=== PATIENT | female | born 1950 | race Caucasian/White ===

== ENCOUNTER → 2017-07-24 | Outpatient (CLI) | payer MEDICARE ==
--- NOTE | 2017-07-24 15:11 | CT ---
EXAMINATION TYPE: CT lumbar spine wo con DATE OF EXAM: 07/24/2017 COMPARISON: CT abdomen and pelvis November 22, 2009 HISTORY: Low back pain x [address] DLP: 952.00 mGycm Automated exposure control for dose reduction was used. FINDINGS: There are 5 lumbar type vertebra identified. Lumbar spine shows satisfactory alignment without eviden ce of acute fracture or dislocation. Osseous structures are demineralized. Vertebral body and disc sp carroll heights are fairly well-maintained. No large posterior disc herniations are seen on sagittal imag es. No significant spurring is noted. There is spinal stimulator device entering spinal canal posteri or approach L1-L2 level extending outside the [id number] into the thoracic spine. Review of axial images shows a T12-L1, L1-L2, and L2-L3 levels all to appear within normal limits. Axial images at L3-L4 level show mild broad disc bulge and mild facet degenerative changes bilaterall y. There is some effacement the anterior and posterior lateral thecal sac on axial image 44. Bilatera l neural foramina are felt patent. Axial images at L4-L5 level show moderate to advanced facet degenerative changes bilaterally. There i s moderate broad based posterior disc protrusion. There is effacement of anterior posterior lateral t hecal sac and axial image 55. There is mild to moderate bilateral anterior inferior neural foraminal narrowing at this level identified. Axial images at L5-S1 level show moderate to advanced right and mild left-sided facet degenerative ch anges bilaterally. Spinal canal is preserved. Bilateral neural foramina are felt patent. There are calcified phleboliths bilaterally. There is partial visualization of large otherwise simple appearing cyst anteriorly upper pole level right kidney on axial image 19 which was present on [address]. Cholecystectomy clips are also redemonstrated. IMPRESSION: DEMINERALIZATION WITH SOME DEGENERATIVE CHANGES MID TO LOWER LUMBAR LEVEL DETAILED ABOVE.
== END | disposition home or self-care (01) ==
LOC: RADCTMAIN 14:33
PROVIDERS: ATTEND Psychiatry & Neurology Neurology
DX: M47.897 Other spondylosis, lumbosacral region (principal); M81.0 Age-related osteoporosis without current pathological fracture
CPT/HCPCS: 72131

== ENCOUNTER → 2017-09-04 | Outpatient (CLI) | payer MEDICARE ==
[2017-09-04 15:52] LABS: Blood Urea Nitrogen 14 mg/dL (7-17)
--- NOTE | 2017-09-04 20:21 | CT ---
EXAMINATION TYPE: CT brain wo/w con DATE OF EXAM: 09/04/2017 COMPARISON: 05/14/2016 HISTORY: Personal history of tia. CT DLP: 2063.9 mGycm Automated exposure control for dose reduction was used. CONTRAST: CT scan of the head is performed without and with IV Contrast, patient injected with 65 mL of Omnipaq ue 350. FINDINGS: There is mild cerebral cortical atrophy. There is no mass effect nor midline shift. There is no sign of intracranial hemorrhage. The contrast images show no pathologic enhancement. There is a 1 cm area of hypodensity in the insula left temporal lobe. IMPRESSION: Small lacunar infarct in the insula left temporal lobe. There is overall no adverse change compared t o old exam. No evidence of cortical infarct.
--- NOTE | 2017-09-06 23:23 | CT ---
EXAMINATION TYPE: CT angio head neck DATE OF EXAM: 09/04/2017 COMPARISON: Brain 09/04/2017 HISTORY: 67-year-old female Personal history of TIA. TECHNIQUE: Contiguous axial scanning of the head and neck performed with IV Contrast; injected with 6 5 mL of [id number] images through the kidneys were obtained. Coronal/sagittal MIP reconstructions perf ormed. 3-D reconstructions generated on a dedicated independent workstation. CT DLP: 240.4 [id number] exposure control for dose reduction was used. FINDINGS: Head: Focal atherosclerotic calcification left vertebral artery at the V3 and V4 junction causing moderate focal stenosis. Otherwise, the vertebral and basilar arteries are widely patent. Mild atherosclerotic calcifications within the carotid siphons with mild narrowing. Mild atherosclero tic irregularity of the M2 and more peripheral MCA branches. Otherwise, the internal carotid arteries are patent and the anterior and posterior circulations appear satisfactory. Small 7 mm pleural-based calcification left temporal region probably a tiny meningioma. NECK: Mild atherosclerotic arch calcifications with conventional arch vessel branching anatomy. The vertebral artery origins are patent and the vertebral arteries are patent throughout the course. The right common carotid artery is patent. Moderate atherosclerotic calcifications within the right carotid bulb causing approximately 50% stenosis of the proximal right internal carotid artery by NASC ET criteria. The left common carotid artery is patent. Moderate atherosclerotic calcifications of the left carotid bifurcation with approximately 15% stenosis of the proximal left internal carotid artery by NASCET c riteria. The proximal internal carotid arteries are tortuous on both sides. IMPR ION: 1. Head: Mild atherosclerotic narrowing in the bilateral carotid siphons and mild atherosclerotic irr egularity within the M2 and more distal MCA branches. 2. Head: Atherosclerotic calcification causing a moderate focal narrowing of the left vertebral arter y at the V3 and V4 junction. 3. Neck: Moderate atherosclerotic calcification at both carotid bifurcations. Changes result in borde rline moderate (50%) proximal right ICA stenosis and mild (15%) proximal left ICA stenosis.
== END | disposition home or self-care (01) ==
LOC: RADCTMAIN 15:18
PROVIDERS: ATTEND Psychiatry & Neurology Pain Medicine
DX: I63.9 Cerebral infarction, unspecified (principal); I67.2 Cerebral atherosclerosis; I63.233 Cerebral infarction due to unspecified occlusion or stenosis of bilateral carotid arteries; Z88.5 Allergy status to narcotic agent; Z91.041 Radiographic dye allergy status
CPT/HCPCS: 82565; 84520; 70496; 70470; 70498; 36415; Q9967

== ENCOUNTER 2018-03-26 16:04 | Inpatient (IN) | payer MEDICARE ==
[2018-03-26 18:07] LABS: Basophils % (A) 0 %; Eosinophils # (A) 0.2 k/uL (0-0.7); Eosinophils % (A) 1 %; HCT 37.5 % (34.0-46.0); HGB 12.6 gm/dL (11.4-16.0); Lymphocytes # (A) 2.1 k/uL (1.0-4.8); Lymphocytes % (A) 10 %; MCH 27.3 pg (25.0-35.0); MCHC 33.5 g/dL (31.0-37.0); MCV 81.4 fL (80.0-100.0); Mean Platelet Volume 6.3; Monocytes # (A) 0.5 k/uL (0-1.0); Monocytes % (A) 3 %; Neutrophils # (A) 17.7 k/uL (1.3-7.7); Neutrophils % (A) 86 %; Platelet Count 637 k/uL (150-450); RBC 4.61 m/uL (3.80-5.40); RDW 12.5 % (11.5-15.5); WBC 20.6 k/uL (3.8-10.6)
[2018-03-26 18:14] LABS: INR 1.1 (<1.2)
[2018-03-26 18:27] LABS: ALT 30 U/L (9-52); AST 24 U/L (14-36); Albumin 4.4 g/dL (3.5-5.0); Alkaline Phosphatase 83 U/L (38-126); Anion Gap 16 mmol/L; Blood Urea Nitrogen 20 mg/dL (7-17); Calcium 10.3 mg/dL (8.4-10.2); Carbon Dioxide 27 mmol/L (22-30); Chloride 86 mmol/L (98-107); Glucose 136 mg/dL (74-99); Potassium 3.3 mmol/L (3.5-5.1); Sodium 129 mmol/L (137-145); Total Bilirubin 0.7 mg/dL (0.2-1.3); Total Protein 7.7 g/dL (6.3-8.2)
[2018-03-26 18:31] LABS: Creatine Kinase 135 U/L (30-135)
[2018-03-26 18:43] LABS: Creatine Kinase MB 3.4 ng/mL (0.0-2.4); Troponin I <0.012 ng/mL (0.000-0.034)
[2018-03-26] MEDS ORDERED: POTASSIUM CHLORIDE ER 20 MEQ TAB.ER PO STA ×2 (18:55→23:20)
--- NOTE | 2018-03-26 19:10 | ED ---
General Adult HPI <Beto Ramirez - Last Filed: 03/26/18 20:14> - General Source: patient, RN notes reviewed Mode of arrival: wheelchair Limitations: no limitations <Kerline Carvajal - Last Filed: 03/27/18 03:21> - General Chief complaint: Recheck/Abnormal Lab/Rx Stated complaint: Sent by Karis Time Seen by Provider: 03/26/18 18:16 - History of Present Illness Initial comments: This is a 68-year-old female who presents to the emergency department with chief complaint of high white blood cell count. Patient is accompanied by her daughter who contributes to history. Daughter states that patient had a pain pump installed into her abdomen in the beginning of February. She states that subsequently patient developed a high white blood cell count and was admitted to [facility] on March 14 through the . Daughter states that a full workup was performed and no source of infection was found. She states the doctors believed it was patient's bodies reaction to the foreign pain pump. Daughter states that over the past week patient has not been eating or drinking. She has not been caring for herself. She states that she was contacted by Dr. Cabello and a Dr. Dyson today and was told to have patient admitted through the emergency department as her white blood cell count spiked back up. Patient is a very poor historian. She does admit to recent fevers and shortness of breath. She denies chest pain, abdominal pain. She also states she has been nauseous and vomiting. (Kerline Carvajal) - Related Data Home Medications Medication Instructions Recorded Confirmed Clopidogrel [Plavix] 75 mg PO DAILY 01/04/14 03/26/18 DULoxetine HCL [Cymbalta] 60 mg PO BID 01/04/14 03/26/18 Fluticasone/Salmeterol [Advair 1 puff INHALATION RT-BID 01/04/14 03/26/18 500-50 Diskus] Levothyroxine Sodium [Synthroid] 88 mcg PO QAM 01/04/14 03/26/18 Metoprolol Tartrate [Lopressor] 50 mg PO BID 01/04/14 03/26/18 Montelukast [Singulair] 10 mg PO HS 01/04/14 03/26/18 Aspirin 81 mg PO HS 02/07/14 03/26/18 valACYclovir HCL [Valtrex] 1,000 mg PO DAILY 02/07/14 03/26/18 Ondansetron HCl [Zofran] 8 mg PO Q12HR PRN 02/21/15 03/26/18 Vitamin B Complex 1 cap PO DAILY 02/21/15 03/26/18 cycloSPORINE [Restasis] 1 drops BOTH EYES BID 02/21/15 03/26/18 Biotin 5 mg PO DAILY 04/26/15 03/26/18 Ferrous Sulfate [Feosol] 325 mg PO DAILY 04/26/15 03/26/18 Ascorbic Acid [Vitamin C] 1,000 mg PO DAILY 05/13/16 03/26/18 Bisacodyl 5 mg PO DAILY PRN 03/26/18 03/26/18 Carbidopa-Levodopa 25-100 mg 1 tab PO HS 03/26/18 03/26/18 [Sinemet 25-100] Cholecalciferol [Vitamin D3] 5,000 unit PO DAILY 03/26/18 03/26/18 EPINEPHrine [Auvi-Q] 0.3 mg IM DIRECTED PRN 03/26/18 03/26/18 Levalbuterol Hfa Inhaler [Xopenex 1 - 2 puff INHALATION Q6HR PRN 03/26/18 Hfa Inhaler] Losartan Potassium 100 mg PO DAILY 03/26/18 03/26/18 amLODIPine [Norvasc] 10 mg PO BID 03/26/18 03/26/18 Allergies Allergy/AdvReac Type Severity Reaction Status Date / Time aripiprazole [From Abilify] Allergy Anaphylaxis Verified 03/26/18 18:56 baclofen Allergy Anaphylaxis Verified 03/26/18 18:56 butalbital [From Fioricet] Allergy Rash/Hives Verified 03/26/18 18:56 cefadroxil hydrate Allergy Rash/Hives Verified 03/26/18 18:56 [From Duricef] cefazolin sodium Allergy Anaphylaxis Verified 03/26/18 18:56 [From Kefzol] cephalexin monohydrate Allergy Anaphylaxis Verified 03/26/18 18:56 [From Keflex] ciprofloxacin [From Cipro] Allergy Swelling Verified 03/26/18 18:56 OF THROAT ,RASH AND HIVES ciprofloxacin HCl Allergy Rash/Hives, Verified 03/26/18 18:56 [From Cipro] SWELLING OF THROAT clindamycin HCl Allergy Unknown Verified 03/26/18 18:56 [From Cleocin] clindamycin palmitate HCl Allergy Unknown Verified 03/26/18 18:56 [From Cleocin] clindamycin phosphate Allergy Unknown Verified 03/26/18 18:56 [From Cleocin] dexamethasone [From Decadron] Allergy Anaphylaxis Verified 03/26/18 18:56 dexamethasone sod phosphate Allergy Anaphylaxis Verified 03/26/18 18:56 [From Decadron] ,RASH divalproex sodium Allergy Rash/Hives Verified 03/26/18 18:56 [From Depakote] hydroxyzine HCl [From Atarax] Allergy Unknown Verified 03/26/18 18:56 ibuprofen [From Motrin] Allergy RASH Verified 03/26/18 18:56 ,ITCHING SWELLING OF THROAT influenza virus vaccine, Allergy Anaphylaxis Verified 03/26/18 18:56 specific [Influenza Virus Vacc,Specific] Iodinated Contrast- Oral and Allergy Anaphylaxis Verified 03/26/18 18:56 IV Dye ketorolac tromethamine Allergy Chest Pain Verified 03/26/18 18:56 [From Toradol] lidocaine HCl Allergy Anaphylaxis Verified 03/26/18 18:56 [From Xylocaine] lisinopril Allergy Swelling Verified 03/26/18 18:56 meperidine HCl [From Demerol] Allergy Rash/Hives Verified 03/26/18 18:56 Milk Containing Products Allergy ABDOMINAL Verified 03/26/18 18:56 PAIN NAUSEA AND VOMITING morphine Allergy Vomiting Verified 03/26/18 18:56 Mushroom Allergy Anaphylaxis Verified 03/26/18 18:56 nortriptyline HCl Allergy Unknown Verified 03/26/18 18:56 [From Pamelor] omalizumab [From Xolair] Allergy Anaphylaxis Verified 03/26/18 18:56 Penicillins Allergy Rash/Hives Verified 03/26/18 18:56 pregabalin [From Lyrica] Allergy Rash/Hives Verified 03/26/18 18:56 procaine HCl [From Novocain] Allergy Unknown Verified 03/26/18 18:56 shellfish derived Allergy Anaphylaxis Verified 03/26/18 18:56 sulfamethoxazole Allergy Unknown Verified 03/26/18 18:56 [From Septra] tetracycline [Tetracycline] Allergy Rash/Hives Verified 03/26/18 18:56 theophylline anhydrous Allergy Unknown Verified 03/26/18 18:56 [From Joel-Dur] triamcinolone Allergy Anaphylaxis Verified 03/26/18 18:56 trimethoprim [From Septra] Allergy RASH, Verified 03/26/18 18:56 ITCHING vancomycin Allergy ITCHING Verified 03/26/18 18:56 ,HIVES wheat Allergy Rash/Hives Verified 03/26/18 18:56 yellow dye Allergy Anaphylaxis Verified 03/26/18 18:56 erythromycin base AdvReac Rash/Hives Verified 03/26/18 18:56 fentanyl [From Duragesic] AdvReac Unknown Verified 03/26/18 18:56 NSAIDS (Non-Steroidal AdvReac Unknown Verified 03/26/18 18:56 Anti-Inflamma verapamil AdvReac Rash/Hives Verified 03/26/18 18:56 PAPER TAPE Allergy Rash/BLISTE Uncoded 03/26/18 16:48 RS PERSERATIVE IN ALBUTEROL Allergy Dyspnea Uncoded 03/26/18 16:48 INHALER PU steroids Allergy Rash/Hives Uncoded 03/26/18 16:48 WHITE SUTURE Allergy Swelling Uncoded 03/26/18 16:48 Review of Systems ROS Other: All systems not noted in ROS Statement are negative. <Beto Ramirez - Last Filed: 03/26/18 20:14> ROS Other: All systems not noted in ROS Statement are negative. <Kerline Carvajal - Last Filed: 03/27/18 03:21> ROS Statement: Those systems with pertinent positive or pertinent negative responses have been documented in the HPI. Past Medical History Past Medical History: Asthma, Cancer, Chest Pain / Angina, CVA/TIA, Fibromyalgia , GERD/Reflux, Hyperlipidemia, Hypertension, Osteoarthritis (OA), Renal Disease , Sleep Apnea/CPAP/BIPAP, Thyroid Disorder Additional Past Medical History / Comment(s): stage 3 renal failure 30%, stroke X4 - LT SIDE WEAKNESS. cancer Lt leg (replaced with titanium), fibroids, endometriosis, cyst big toe, kidney stones. HAS DIABETES INSIPIDUS,anemia, phlebitis, cardiomyopathy dx December 2015 History of Any Multi-Drug Resistant Organisms: None Reported Past Surgical History: Appendectomy, Back Surgery, Bariatric Surgery, Cholecystectomy, Heart Catheterization, Hysterectomy, Joint Replacement, Orthopedic Surgery, Tubal Ligation Additional Past Surgical History / Comment(s): lithotripsy, bilateral cataract surgery, surgeries in legs for breaking of scar tissue, hand surgery, lapband removal 2013 (implanted 2007), Gastric sleeve ,, pain stimulator, PAIN CLINIC PROCEDURE Past Anesthesia/Blood Transfusion Reactions: Previous Problems w/ Anesthesia Additional Past Anesthesia/Blood Transfusion Reaction / Comment(s): LONGER WAKING UP Past Psychological History: Anxiety, Depression, Panic Disorder Smoking Status: Never smoker Past Alcohol Use History: Rare Past Drug Use History: None Reported - Past Family History Mother Family Medical History: CVA/TIA Daughter(s) Additional Family Medical History / Comment(s): dvt <Kerline Carvajal - Last Filed: 03/27/18 03:21> General Exam <Beto Ramirez - Last Filed: 03/26/18 20:14> Limitations: no limitations <Kerline Carvajal - Last Filed: 03/27/18 03:21> - General Exam Comments Initial Comments: General: Awake and alert, well-developed; in no apparent distress. Daughter is at bedside. HEENT: Head atraumatic, normocephalic. Pupils are equal, round and reactive to light. Extraocular movements intact. Oropharynx moist without erythema or exudate. Neck: Supple. Normal ROM. Cardiovascular: Regular rate and rhythm. No murmurs, rubs or gallops. Chest symmetrical. Respiratory: Lungs clear to auscultation bilaterally. No wheezes, rales or rhonchi. Normal respiratory effort with no use of accessory muscles. Abdomen: Soft, non-tender, non-distended. No rigidity, rebound or guarding. Normal bowel sounds in all 4 quadrants. Well-healed transverse incisional scar left mid-abdomen where pain pump was installed. Musculoskeletal: Normal ROM bilateral upper and lower extremities. Skin: [place], warm and dry without rashes or lesions. Neurological: Alert and oriented x3. CN II-XII grossly intact. Speech is fluent and answers are appropriate. No focal neuro deficits. Psychiatric: Normal mood and affect. Poor historian. (Kerline Carvajal) Course <Beto Ramirez - Last Filed: 03/26/18 20:14> <Kerline Carvajal - Last Filed: 03/27/18 03:21> Vital Signs 03/26/18 03/26/18 16:46 20:42 Temperature 98 F Pulse Rate 95 76 Respiratory 16 20 Rate Blood Pressure 140/77 174/81 O2 Sat by Pulse 97 95 Oximetry - Reevaluation(s) Reevaluation #1: 03/26/18 20:14 Patient stated that she can take Levaquin. Blood culture and lactic acid and IV antibiotics have been ordered. (Beto Ramirez) EKG Findings - EKG Comments: EKG Findings:: 18:34:25. Normal sinus rhythm. Voltage criteria for left ventricular hypertrophy. ST abnormality, possible digitalis effect. Ventricular rate 78 bpm, [place] interval 150, QRS duration 102, QT/QTc 422/481 <Kerline Carvajal - Last Filed: 03/27/18 03:21> Medical Decision Making - Lab Data Result diagrams: 03/26/18 17:56 03/26/18 17:56 <Beto Ramierz - Last Filed: 03/26/18 20:14> - Lab Data Result diagrams: 03/26/18 17:56 03/26/18 17:56 - Radiology Data Radiology results: report reviewed <Kerline Carvajal - Last Filed: 03/27/18 03:21> - Medical Decision Making Patient reevaluated by myself, Dr. Ramirez. Patient resting comfortably in bed. Family states patient has had some confusion. Patient does have elevated blood blood cell count and concern for urinary tract infection. Patient does meet sepsis criteria diagnosed at 11 PM. Case was discussed with practitioner Wood , who will admit for Dr. Dunn, covering for Dr. Downs. Patient and family updated. (Beto Ramirez) This is a 68-year-old female presents to the emergency department with chief complaint of high white blood cell count. Patient was instructed to come to the emergency department for admission by Dr. Dyson. Patient was noted to have a white count of 20.6 with a left shift at 17.7. UA does reveal signs of infection with moderate bacteria, 147 white blood cells and large leukocyte esterase. Patient does have a lot of ALLERGIES to antibiotics. She does state that she is able to take Levaquin without problem. Patient was also noted to have hypokalemia at 3.3. Given oral supplementation. Patient will be admitted to Dr. Dunn with consult to Dr. Dyson. Patient is in agreement for admission. Her vital signs have been stable and she is in no acute distress. (Kerline Carvajal) - Lab Data Lab Results 03/26/18 03/26/18 03/26/18 Range/Units 17:56 17:56 17:56 WBC 20.6 H (3.8-10.6) k/uL RBC 4.61 (3.80-5.40) m/uL Hgb 12.6 (11.4-16.0) gm/dL Hct 37.5 (34.0-46.0) % MCV 81.4 (80.0-100.0) fL MCH 27.3 (25.0-35.0) pg MCHC 33.5 (31.0-37.0) g/dL RDW 12.5 (11.5-15.5) % Plt Count 637 H (150-450) k/uL Neutrophils % 86 % Lymphocytes % 10 % Monocytes % 3 % Eosinophils % 1 % Basophils % 0 % Neutrophils # 17.7 H (1.3-7.7) k/uL Lymphocytes # 2.1 (1.0-4.8) k/uL Monocytes # 0.5 (0-1.0) k/uL Eosinophils # 0.2 (0-0.7) k/uL Basophils # 0.0 (0-0.2) k/uL PT 11.0 (9.0-12.0) sec INR 1.1 (<1.2) Sodium 129 L (137-145) mmol/L Potassium 3.3 L (3.5-5.1) mmol/L Chloride 86 L (98-107) mmol/L Carbon Dioxide 27 (22-30) mmol/L Anion Gap 16 mmol/L BUN 20 H (7-17) mg/dL Creatinine 0.65 (0.52-1.04) mg/dL Est GFR (CKD-EPI)AfAm >90 (>60 ml/min/1.73 sqM) Est GFR (CKD-EPI)NonAf >90 (>60 ml/min/1.73 sqM) Glucose 136 H (74-99) mg/dL Plasma Lactic Acid Anjel (0.7-2.0) mmol/L Calcium 10.3 H (8.4-10.2) mg/dL Total Bilirubin 0.7 (0.2-1.3) mg/dL AST 24 (14-36) U/L ALT 30 (9-52) U/L Alkaline Phosphatase 83 (38-126) U/L Total Creatine Kinase (30-135) U/L CK-MB (CK-2) (0.0-2.4) ng/mL CK-MB (CK-2) Rel Index Troponin I (0.000-0.034) ng/mL Total Protein 7.7 (6.3-8.2) g/dL Albumin 4.4 (3.5-5.0) g/dL Urine Color Urine Appearance (Clear) Urine pH (5.0-8.0) Ur Specific [place] (1.001-1.035) Urine Protein (Negative) Urine Glucose (UA) (Negative) Urine Ketones (Negative) Urine Blood (Negative) Urine Nitrite (Negative) Urine Bilirubin (Negative) Urine Urobilinogen (<2.0) mg/dL Ur Leukocyte Esterase (Negative) Urine RBC (0-5) /hpf Urine WBC (0-5) /hpf Urine WBC Clumps (None) /hpf Ur Squamous Epith Cells (0-4) /hpf Urine Bacteria (None) /hpf Hyaline Casts (0-2) /lpf Urine Mucus (None) /hpf Urine Yeast (Budding) (None) /hpf 03/26/18 03/26/18 03/26/18 Range/Units 17:56 18:38 19:18 WBC (3.8-10.6) k/uL RBC (3.80-5.40) m/uL Hgb (11.4-16.0) gm/dL Hct (34.0-46.0) % MCV (80.0-100.0) fL MCH (25.0-35.0) pg MCHC (31.0-37.0) g/dL RDW (11.5-15.5) % Plt Count (150-450) k/uL Neutrophils % % Lymphocytes % % Monocytes % % Eosinophils % % Basophils % % Neutrophils # (1.3-7.7) k/uL Lymphocytes # (1.0-4.8) k/uL Monocytes # (0-1.0) k/uL Eosinophils # (0-0.7) k/uL Basophils # (0-0.2) k/uL PT (9.0-12.0) sec INR (<1.2) Sodium (137-145) mmol/L Potassium (3.5-5.1) mmol/L Chloride (98-107) mmol/L Carbon Dioxide (22-30) mmol/L Anion Gap mmol/L BUN (7-17) mg/dL Creatinine (0.52-1.04) mg/dL Est GFR (CKD-EPI)AfAm (>60 ml/min/1.73 sqM) Est GFR (CKD-EPI)NonAf (>60 ml/min/1.73 sqM) Glucose (74-99) mg/dL Plasma Lactic Acid Anjel 1.5 (0.7-2.0) mmol/L Calcium (8.4-10.2) mg/dL Total Bilirubin (0.2-1.3) mg/dL AST (14-36) U/L ALT (9-52) U/L Alkaline Phosphatase (38-126) U/L Total Creatine Kinase 135 (30-135) U/L CK-MB (CK-2) 3.4 H (0.0-2.4) ng/mL CK-MB (CK-2) Rel Index 2.5 Troponin I <0.012 (0.000-0.034) ng/mL Total Protein (6.3-8.2) g/dL Albumin (3.5-5.0) g/dL Urine Color Yellow Urine Appearance Cloudy H (Clear) Urine pH 6.0 (5.0-8.0) Ur Specific [place] 1.017 (1.001-1.035) Urine Protein 2+ H (Negative) Urine Glucose (UA) Negative (Negative) Urine Ketones Trace H (Negative) Urine Blood Small H (Negative) Urine Nitrite Negative (Negative) Urine Bilirubin Negative (Negative) Urine Urobilinogen 2.0 (<2.0) mg/dL Ur Leukocyte Esterase Large H (Negative) Urine RBC 54 H (0-5) /hpf Urine WBC 147 H (0-5) /hpf Urine WBC Clumps Few H (None) /hpf Ur Squamous Epith Cells 1 (0-4) /hpf Urine Bacteria Moderate H (None) /hpf Hyaline Casts 8 H (0-2) /lpf Urine Mucus Many H (None) /hpf Urine Yeast (Budding) Moderate H (None) /hpf - Radiology Data Chest x-ray impression: No active cardiopulmonary disease. No change. (Kerline Carvajal Disposition <Beto Ramirez - Last Filed: 03/26/18 20:14> Is patient prescribed a controlled substance at d/c from ED?: No Time of Disposition: 20:20 <Kerline Carvajal - Last Filed: 03/27/18 03:21> Clinical Impression: Urinary tract infection, Sepsis Disposition: ADMITTED IP TO THIS HOSP Condition: Good
[2018-03-26 19:37] LABS: Appearance,Urine Cloudy (Clear); Bacteria,Urine Moderate /hpf; Bilirubin,Urine Negative (Negative); Blood,Urine Small (Negative); Budding Yeast,Urine Moderate /hpf; Color,Urine Yellow; Glucose,Urine (UA) Negative (Negative); Hyaline Casts,Urine 8 /lpf (0-2); Ketones,Urine Trace (Negative); Leukocyte Esterase,Urine Large (Negative); Mucus,Urine Many /hpf; Nitrite,Urine Negative (Negative); Protein,Urine 2+ (Negative); RBC,Urine 54 /hpf (0-5); Specific Gravity,Urine 1.017 (1.001-1.035); Squamous Epithelial Cell,Urine 1 /hpf (0-4); WBC,Urine 147 /hpf (0-5)
--- NOTE | 2018-03-26 19:52 | XR ---
EXAMINATION TYPE: XR chest 2V DATE OF EXAM: 03/26/2018 COMPARISON: 05/12/2016 HISTORY: High white blood cell count TECHNIQUE: Frontal and lateral views of the chest are obtained. FINDINGS: There is no heart failure nor confluent pneumonic infiltrate. Heart and mediastinum are no rmal. There is neurostimulator in the mid thoracic spine. There is no pleural effusion. IMPRESSION: No active cardiopulmonary disease. No change.
[2018-03-26] MEDS ORDERED: NALOXONE 0.4 MG/ML 1 ML VIAL IV PRN (20:12)
[2018-03-26] MEDS ORDERED: LEVOFLOXACIN 750MG-D5W PMX 750 MG in DEXTROSE/WATER 1 150ML.BAG IVPB STA (20:13)
[2018-03-26] MEDS: SODIUM CHLORIDE 0.9% 1,000 ML IV SCH (20:24)
[2018-03-26] MEDS: ACETAMINOPHEN TAB 325 MG TAB PO PRN (21:30)
[2018-03-26] MEDS ORDERED: ALBUTEROL NEBULIZED 2.5 MG/3 ML INHALATION PRN (23:20)
[2018-03-26] MEDS ORDERED: EPINEPHRINE 0.3 MG IM PRN (23:20)
[2018-03-26] MEDS ORDERED: BISACODYL 5 MG TABLET.DR PO PRN (23:20)
[2018-03-26] MEDS ORDERED: ALPRAZolam 0.25 MG TAB PO PRN (23:23)
[2018-03-27] MEDS: LEVOTHYROXINE 88 MCG TAB PO SCH (06:01)
[2018-03-27] MEDS ORDERED: PANTOPRAZOLE 40 MG TABLET PO SCH (07:30)
[2018-03-27 07:56] LABS: Anion Gap 11 mmol/L; Blood Urea Nitrogen 18 mg/dL (7-17); Calcium 9.6 mg/dL (8.4-10.2); Carbon Dioxide 30 mmol/L (22-30); Chloride 89 mmol/L (98-107); Glucose 114 mg/dL (74-99); Potassium 3.1 mmol/L (3.5-5.1); Sodium 130 mmol/L (137-145)
[2018-03-27 07:58] LABS: Basophils % (A) 0 %; Eosinophils # (A) 0.1 k/uL (0-0.7); Eosinophils % (A) 1 %; HCT 31.8 % (34.0-46.0); HGB 10.7 gm/dL (11.4-16.0); Lymphocytes # (A) 2.4 k/uL (1.0-4.8); Lymphocytes % (A) 22 %; MCHC 33.8 g/dL (31.0-37.0); MCV 82.8 fL (80.0-100.0); Mean Platelet Volume 6.6; Monocytes # (A) 0.5 k/uL (0-1.0); Monocytes % (A) 4 %; Neutrophils # (A) 7.7 k/uL (1.3-7.7); Neutrophils % (A) 72 %; Platelet Count 464 k/uL (150-450); RBC 3.83 m/uL (3.80-5.40); RDW 12.7 % (11.5-15.5); WBC 10.7 k/uL (3.8-10.6)
[2018-03-27] MEDS: ONDANSETRON 4 MG TAB PO PRN ×2 (08:11→21:31)
[2018-03-27] MEDS: valACYclovir HCL 1,000 MG TABLET PO SCH (08:28)
[2018-03-27] MEDS: LOSARTAN 50 MG TAB PO SCH (08:28)
[2018-03-27] MEDS: CLOPIDOGREL 75 MG TAB PO SCH (08:29)
[2018-03-27] MEDS: amLODIPine 10 MG TAB PO SCH ×2 (08:29→22:44)
[2018-03-27] MEDS: ASCORBIC ACID 500 MG TAB PO SCH (08:30)
[2018-03-27] MEDS: cycloSPORINE 0.05% OPHTH 0.4 ML DROPERETTE BOTH EYES SCH ×2 (08:30→21:33)
[2018-03-27] MEDS: FERROUS SULFATE 325 MG TAB PO SCH (08:30)
[2018-03-27] MEDS: ACETAMINOPHEN TAB 325 MG TAB PO PRN ×2 (08:30→21:31)
[2018-03-27] MEDS: CHOLECALCIFEROL 1,000 UNIT TAB PO SCH (08:30)
[2018-03-27] MEDS: PANTOPRAZOLE 40 MG/10 ML VIAL IVP SCH ×2 (08:31→21:35)
[2018-03-27] MEDS: METOPROLOL TARTRATE 50 MG TAB PO SCH ×2 (08:32→21:35)
[2018-03-27] MEDS ORDERED: NON-FORMULARY DRUG (Biotin [Biotin] 5 MG) PO SCH (09:00)
[2018-03-27] MEDS: DULoxetine HCL 60 MG CAPSULE.DR PO SCH ×2 (09:00→21:32)
[2018-03-27] MEDS ORDERED: NON-FORMULARY DRUG (Vitamin B Complex [Vitamin B Complex] 1 CAP) PO SCH (09:00)
--- NOTE | 2018-03-27 10:02 | HP ---
HISTORY AND PHYSICAL DATE OF SERVICE: 03/26/2018 CHIEF COMPLAINT: Tiredness, weakness and increased WBC. HISTORY OF PRESENT ILLNESS: This 68-year-old woman with a past medical history of multiple medical problems including chronic pain syndrome, history of back pain, history of asthma, history of CVA, TIA, fibromyalgia, hypertension, hyperlipidemia, history of DJD, history of hypothyroidism, history of stage III kidney failure, history of multiple strokes , history of back surgery, history of bariatric surgery, lithotripsy being for Dr. Cabello in the outpatient setting, also being for Dr. Dyson. The patient had recent pain pump implantation and the patient has been worked up for the same, but however the patient is complaining generalized weakness and tiredness, unable to do anything and the patient is having some nausea, vomiting and multiple symptomatology. The patient also had a high white count and the patient was also admitted to [facility] from to and no source of infection was done apparently. The high white count was thought to be reaction to the pain pump, but because of lack of intake of fluids and solids and increasing weakness, patient came to [facility]. The white count is still elevated and the patient had UTI. Sepsis was suspected and patient admitted for further evaluation and treatment. There is no history any rigors, chills. No headache, loss of consciousness, seizures. Patient also complaining of back pain as mentioned earlier. No new back pain is reported. PAST MEDICAL HISTORY: Asthma, chest pain, CVA, TIA, fibromyalgia, GERD, hypertension, hyperlipidemia, history of degenerative joint disease, history of hypothyroidism, history renal failure, history of bariatric surgery, history of back surgery for , lithotripsy. CURRENT MEDICATIONS: Prior to admission include home medications are: 1. Vitamin D3 5000 daily. 2. Vitamin C 1000 mg daily. 3. Valtrex 1000 mg p.o. daily. 4. Vitamin B complex p.o. daily. 5. Zofran 8 mg p.o. b.i.d. 6. Synthroid 88 mcg p.o. q.a.m. 7. Singulair 10 mg q.h.s. 8. Lopressor 50 mg p.o. b.i.d. 9. Losartan 100 mg p.o. daily. 10.Xopenex 1-2 puffs q.6h p.r.n. 11.Advair 500/50, 1 puff b.i.d. 12.Iron sulfate 325 mg p.o. daily. 13.Epinephrine 0.3 p.r.n. 14.Restasis 1 drop both eyes b.i.d. 15.Cymbalta 60 mg p.o. b.i.d. 16.Plavix 75 mg p.o. daily. 17.Simvastatin 100 one p.o. q.h.s. 18.Bisacodyl 5 mg daily p.r.n. 19.Norvasc 10 mg p.o. b.i.d. 20.Biotin 5 mg p.o. daily. 21.Aspirin 81 mg q.h.s. ALLERGIES: Are multiple allergies. Please refer to the chart for details. SOCIAL HISTORY: History of smoking. Occasional alcohol intake. REVIEW OF SYSTEMS: ENT: No diminished hearing or vision. CARDIOVASCULAR: No angina. RESPIRATORY: As mentioned earlier. GI: As mentioned earlier. : As mentioned earlier. NERVOUS SYSTEM: As mentioned. ALLERGY/IMMUNOLOGY: As mentioned earlier. MUSCULOSKELETAL: As mentioned earlier. HEMATOLOGY: No history of anemia. ENDOCRINE: Mentioned earlier. CONSTITUTIONAL: As mentioned earlier. DERMATOLOGY: Negative. RHEUMATOLOGY: Negative. PSYCHIATRY: As mentioned earlier. PHYSICAL EXAMINATION: Alert, oriented x3. Pulse 89, blood pressure 143/96, respirations 16, temperature 97.2, pulse ox 98% on room air. HEENT: Conjunctivae normal. Oral mucosa moist. NECK: No jugular venous distention. No carotid bruit. No lymph node enlargement. CARDIOVASCULAR: S1, S2. No S3, no S4. RESPIRATORY: Breath sounds diminished in the bases. No rhonchi. No crackles. ABDOMEN: Soft, nontender. No mass palpable. Pain pump in the left lower quadrant present otherwise. LEGS: No edema, no swelling. NERVOUS SYSTEM: Higher functions as mentioned earlier. Moves all 4 limbs. No focal deficit. LYMPHATICS: No lymphadenopathy in the neck, axillae, groin. SKIN: No ulcer, rash, bleeding. JOINTS: No active deforming arthropathy. Examination of the back some diffuse tenderness present. No point tenderness noted. LABS: WBC 20.6. Platelets are 637. Sodium 120, potassium 3.3. UA noted. ASSESSMENT: 1. Acute urinary tract infection with sepsis, present on admission. 2. Recent pain pump insertion. 3. Increased WBC possibly secondary to sepsis. 4. Hyponatremia. 5. Hypokalemia. 6. Diminished p.o. intake. 7. Asthma. 8. History of chest pain and angina. 9. History of cerebrovascular accident, transient ischemic attack. 10.History of fibromyalgia. 11.History of gastroesophageal reflux disease. 12.Hypertension. 13.Hyperlipidemia. 14.History of degenerative joint disease. 15.Hypothyroidism. 16.History of stage III kidney failure. 17.History of multiple strokes. 18.History of fibroids. 19.History of diabetes insipidus. 20.History of phlebitis. 21.History of cardiomyopathy. 22.History of appendectomy. 23.History of bariatric surgery. 24.History of cardiac catheterization. 25.History of lithotripsy. 26.History of gastric sleeve surgery. 27.Anxiety, depression, panic disorder. RECOMMENDATIONS AND DISCUSSION: This 68-year-old woman who presented with multiple complex medical issues, we will monitor the patient closely. Continue the current management and symptomatic treatment. Will initiate IV Levaquin. Follow the cultures. Continue the rest of the medications. We will also obtain a consultation Dr. Dyson and as well as Nephrology also. Will replace potassium. The prognosis is guarded because of multiple complex medical issues and further recommendations to follow. Copy of dictation forwarded to Dr. Cabello who is the primary physician. See orders for details. DVT prophylaxis, proton pump inhibitors. Home medication reconciliation was done. Further recommendations to follow. MMODL / IJN: [id number] / POOL
[2018-03-27 10:50] VITALS: BMI 30.2
[2018-03-27] MEDS ORDERED: HYDROmorphone 1 MG/ML 1 ML SYRINGE IVP PRN (13:31)
[2018-03-27] MEDS: HEPARIN SODIUM,PORCINE 5,000 UNIT/ML 1 ML VIAL SQ SCH ×2 (13:35→21:33)
[2018-03-27] MEDS: FOLIC ACID 1 MG TAB PO SCH (13:35)
[2018-03-27] MEDS: MULTIVITAMINS, THERA 1 EACH TAB PO SCH (13:35)
[2018-03-27] MEDS: THIAMINE 100 MG TAB PO SCH (13:36)
[2018-03-27] MEDS: POTASSIUM CHLORIDE ER 20 MEQ TAB.ER PO SCH ×2 (13:37→14:30)
[2018-03-27] MEDS ORDERED: POTASSIUM CHLORIDE ER 20 MEQ TAB.ER PO STA (19:18)
[2018-03-27] MEDS: ASPIRIN 81 MG PO SCH (21:32)
[2018-03-27] MEDS: CARBIDOPA-LEVODOPA 25-100 MG 1 EACH TAB PO SCH (21:32)
[2018-03-27] MEDS: LEVOFLOXACIN 750MG-D5W PMX 750 MG in DEXTROSE/WATER 1 150ML.BAG IVPB SCH (21:33)
[2018-03-27] MEDS: MONTELUKAST 10 MG TAB PO SCH (21:35)
[2018-03-27] MEDS: SODIUM CHLORIDE 0.9% 1,000 ML IV SCH (21:39)
--- NOTE | 2018-03-27 22:05 | PN ---
PROGRESS NOTE DATE OF SERVICE: 03/27/2018 This 68-year-old woman who was admitted with tiredness and weakness in the elevated WBC, had features of UTI with sepsis. The patient also had recent pain pump insertion. The patient complained of severe aches and pains also. The pain pump inserted by Dr. Dyson as an outpatient. The patient closely monitored. Neurology evaluation in progress. PAST MEDICAL HISTORY: Reviewed. REVIEW OF SYSTEMS: CARDIOVASCULAR: No angina. RESPIRATORY: As mentioned earlier. GI: As mentioned earlier. : No dysuria. NERVOUS SYSTEM: No numbness or tingling. CURRENT MEDICATIONS: Reviewed and include: 1. Tylenol 650 q.6h. 2. Ventolin p.r.n. 3. Norvasc 10 mg b.i.d. 4. Aspirin 81 mg. 5. Dulcolax. 6. Symbicort 160/4.5, 2 puffs. 8. Vitamin D3. 9. Plavix 75 mg. 10.Cymbalta. 11.Iron sulfate. 12.Dilaudid. 13.Cozaar. 14.Synthroid. 15.Levaquin. 16.Lopressor. 17.Singulair. 18.Zofran. PHYSICAL EXAM: Patient is alert, oriented x3. Pulse 94, blood pressure 130/62, respiration 18, temperature 97.7, pulse ox 97% on room air. HEENT: Conjunctivae normal. Oral mucosa moist. Neck is no jugular venous distention. No carotid bruit. No lymph node enlargement. CARDIOVASCULAR: S1, S2. RESPIRATORY: Breath sounds diminished in the bases. No rhonchi, no crackles. ABDOMEN: Soft, nontender. No mass palpable. LEGS: No edema. NERVOUS SYSTEM: Diffusely weak. LABS: WBC 3.3, hemoglobin 10.6, sodium 130, potassium 3.1. UA noted. ASSESSMENT: 1. Acute urinary tract infection with sepsis, present on admission. 2. Recent pain pump insertion. 3. Increased WBC possibly secondary to sepsis. 4. Hyponatremia. 5. Hypokalemia. 6. Gait dysfunction diminished p.o. intake. 7. Asthma. 8. History of chest pain, angina. 9. History of cerebrovascular accident, transient ischemic attack. 10.History of fibromyalgia. 11.History of gastroesophageal reflux disease. 12.Hypertension. 13.Hyperlipidemia. 14.History of degenerative joint disease. 15.History of hypothyroidism. 16.History of stage III kidney failure. 17.History of multiple strokes. 18.History of fibroids. 19.History of diabetes insipidus. 20.History of phlebitis. 21.History of cardiomyopathy. 22.History of appendectomy. 23.History of bariatric surgery. 24.History of cardiac catheterization. 25.History of lithotripsy. 26.History of gastric sleeve surgery. 27.History of anxiety, depression and panic disorder. RECOMMENDATIONS AND DISCUSSION: I recommend to continue current management, continue symptomatic treatment. The cultures are negative so far. Continue present IV antibiotics. Repeat labs. DVT prophylaxis. Continue the pain medications. Overall prognosis guarded. Further recommendations to follow. Nephrology also has been consulted. See orders for details. MMODL / IJN: [id number] / MTDD
[2018-03-27] MEDS ORDERED: ONDANSETRON 4 MG/2 ML VIAL IVP PRN (22:21)
--- NOTE | 2018-03-27 22:27 | CT ---
EXAMINATION TYPE: CT brain wo con DATE OF EXAM: 03/27/2018 COMPARISON: 09/04/2017 HISTORY: Fall injury today headache CT DLP: 1016.9 mGycm Automated exposure control for dose reduction was used. FINDINGS: Ventricles of normal size. There is no mass effect nor midline shift. There is no sign of intracrania l hemorrhage. The calvarium is intact. IMPRESSION: NEGATIVE CT SCAN OF THE BRAIN. NO CHANGE.
--- NOTE | 2018-03-27 23:07 | P.CNNES ---
History of Present Illness Consult date: 03/27/18 Reason for Consult: Patient admitted with altered mental status and confusion. History of Present Illness: This patient is a 68-year-old right-handed white female who has a past medical history of multiple medical problems including chronic pain syndrome, history of chronic back pain, fibromyalgia, hypertension, and recently pain management with a pain pump placement that took place on 02/19/2018. The patient has been complaining of increasing pain symptoms over the last 1 month. She was seen by Dr. Dyson and was recommended to undergo a pain pump placement which was completed on 02/19/2018 at a surgical Center in [facility]. This pain pump was inserted on 02/19/2018 and is in the left lower quadrant of her abdomen. Apparently the placement went well and she was able to return for refill of her pain medication with Dr. Dyson on 03/07/2018. Patient states that she felt that the pain pump was working fairly well for her but around March 13 she began experiencing increase abdominal pain and shooting pain into both of her legs. She was also described as having paresthesias from the waist down to her feet. She contacted Dr. Dyson who recommended she go to [facility] for further evaluation. She was admitted to [facility] on March 14 and was there until March 19. She was told that she may have had MRSA infection. We have requested her to sign a release so that we may obtain her entire medical records from [facility]. The patient apparently continued under treatment of [facility] and was discharged on 03/19/2018. More recently she has been having generalized weakness and fatigue. She had increased nausea vomiting symptoms as well. There was concern that the patient may have underlying MRSA even though [facility] could not find a source of her infection. Due to her increasing pain symptoms and question of proper function of her pain pump she was advised to come to the emergency room at [facility] for evaluation and admission. According to the ER they were unable to contact Dr. Dyson who is her primary neurologist. The patient was admitted under the care of Dr. Dunn internal medicine who admitted the patient to the medical floor into room 562 bed 2 on 03/26/2018. Apparently Dr. Dunn had requested Dr. Dyson to see the patient today as it is his patient. Several attempts were made and the answering service indicated he was not available for consultation today. Dr. Dunn is now consulted myself for further evaluation of her altered mental status and confusion. On further questioning the patient states that she has a history of multiple strokes for which she has been taking Plavix and one baby aspirin daily. She was admitted to the fifth floor for further management today and apparently developed excruciating pain and was screaming out in pain. On further questioning the patient states that her pain symptoms have significantly worsened. We did recommend the patient should be evaluated by Dr. Dyson who had placed the pain pump but since he is not available we've recommended consult in the sign painter helper here in the anesthesia Department further further evaluation and recommendations. The patient apparently was admitted to the floor and had to use the bathroom but her roommate was in the bathroom and she could not hold herself any longer. Two nurses were able to assist her to walk in the hallway to a secondary bathroom. Apparently she fell there and struck her head. She did not appear to have any loss of consciousness. Apparently the device engineer recommended the nursing staff to monitor her for any other changes in her mental status. We have recommended the patient undergo a stat computed tomography scan of the brain this evening for immediate evaluation given her history of fall and head trauma. The patient states she does not have any significant headache but she does have a mild contusion on her top of her scalp. We will obtain the CAT scan of the brain to rule out any acute findings. The patient was found to have evidence of urinary tract infection on her urine cultures. She is being seen by urology as well. She has been started on Levaquin for treatment of the urinary tract infection. We are waiting further recommendations from nephrology in terms of her overall kidney function as she does have stage IV renal failure. The patient denies any focal weakness at this time. She has residual left-sided arm weakness from her previous strokes. She is now been admitted and neurology has been consulted for further evaluation and recommendations. Review of Systems Constitutional: Denies chills, Denies fever Eyes: denies blurred vision, denies pain Ears, nose, mouth and throat: Denies headache, Denies sore throat Cardiovascular: Denies chest pain, Denies shortness of breath Respiratory: Denies cough Gastrointestinal: Denies abdominal pain, Denies diarrhea, Denies nausea, Denies vomiting Genitourinary: Denies dysuria, Denies hematuria Musculoskeletal: Denies myalgias Integumentary: Denies pruritus, Denies rash Neurological: Denies numbness, Denies weakness Psychiatric: Denies anxiety, Denies depression Endocrine: Denies fatigue, Denies weight change Past Medical History Past Medical History: Asthma, Cancer, Chest Pain / Angina, CVA/TIA, Fibromyalgia , GERD/Reflux, Hyperlipidemia, Hypertension, Osteoarthritis (OA), Renal Disease , Sleep Apnea/CPAP/BIPAP, Thyroid Disorder Additional Past Medical History / Comment(s): stage 3 renal failure 30%, stroke X4 - LT SIDE WEAKNESS. cancer Lt leg (replaced with titanium), fibroids, endometriosis, cyst big toe, kidney stones. HAS DIABETES INSIPIDUS,anemia, phlebitis, cardiomyopathy dx December 2015 History of Any Multi-Drug Resistant Organisms: None Reported Past Surgical History: Appendectomy, Back Surgery, Bariatric Surgery, Cholecystectomy, Heart Catheterization, Hysterectomy, Joint Replacement, Orthopedic Surgery, Tubal Ligation Additional Past Surgical History / Comment(s): lithotripsy, bilateral cataract surgery, surgeries in legs for breaking of scar tissue, hand surgery, lapband removal 2012 (implanted 2007), Gastric sleeve ,, pain stimulator, PAIN CLINIC PROCEDURE Past Anesthesia/Blood Transfusion Reactions: Previous Problems w/ Anesthesia Additional Past Anesthesia/Blood Transfusion Reaction / Comment(s): LONGER WAKING UP Past Psychological History: Anxiety, Depression, Panic Disorder Smoking Status: Never smoker Past Alcohol Use History: Rare Past Drug Use History: None Reported - Past Family History Mother Family Medical History: CVA/TIA Daughter(s) Additional Family Medical History / Comment(s): dvt Medications and Allergies Home Medications Medication Instructions Recorded Confirmed Type Clopidogrel [Plavix] 75 mg PO DAILY 01/04/14 03/26/18 History DULoxetine HCL [Cymbalta] 60 mg PO BID 01/04/14 03/26/18 History Fluticasone/Salmeterol [Advair 1 puff INHALATION RT-BID 01/04/14 03/26/18 History 500-50 Diskus] Levothyroxine Sodium [Synthroid] 88 mcg PO QAM 01/04/14 03/26/18 History Metoprolol Tartrate [Lopressor] 50 mg PO BID 01/04/14 03/26/18 History Montelukast [Singulair] 10 mg PO HS 01/04/14 03/26/18 History Aspirin 81 mg PO HS 02/07/14 03/26/18 History valACYclovir HCL [Valtrex] 1,000 mg PO DAILY PRN 02/07/14 03/26/18 History Ondansetron HCl [Zofran] 8 mg PO Q12HR PRN 02/21/15 03/26/18 History Vitamin B Complex 1 cap PO DAILY 02/21/15 03/26/18 History cycloSPORINE [Restasis] 1 drops BOTH EYES BID 02/21/15 03/26/18 History Biotin 5 mg PO DAILY 04/26/15 03/26/18 History Ferrous Sulfate [Feosol] 325 mg PO DAILY 04/26/15 03/26/18 History Ascorbic Acid [Vitamin C] 1,000 mg PO DAILY 05/13/16 03/26/18 History Bisacodyl 5 mg PO DAILY PRN 03/26/18 03/26/18 History Carbidopa-Levodopa 25-100 mg 1 tab PO HS 03/26/18 03/26/18 History [Sinemet 25-100] Cholecalciferol [Vitamin D3] 5,000 unit PO DAILY 03/26/18 03/26/18 History EPINEPHrine [Auvi-Q] 0.3 mg IM DIRECTED PRN 03/26/18 03/26/18 History Levalbuterol Hfa Inhaler [Xopenex 1 - 2 puff INHALATION Q6HR PRN 03/26/18 History Hfa Inhaler] Losartan Potassium 100 mg PO DAILY 03/26/18 03/26/18 History amLODIPine [Norvasc] 10 mg PO BID 03/26/18 03/26/18 History Allergies Allergy/AdvReac Type Severity Reaction Status Date / Time aripiprazole [From Abilify] Allergy Anaphylaxis Verified 03/26/18 18:56 baclofen Allergy Anaphylaxis Verified 03/26/18 18:56 butalbital [From Fioricet] Allergy Rash/Hives Verified 03/26/18 18:56 cefadroxil hydrate Allergy Rash/Hives Verified 03/26/18 18:56 [From Duricef] cefazolin sodium Allergy Anaphylaxis Verified 03/26/18 18:56 [From Kefzol] cephalexin monohydrate Allergy Anaphylaxis Verified 03/26/18 18:56 [From Keflex] ciprofloxacin [From Cipro] Allergy Swelling Verified 03/26/18 18:56 OF THROAT ,RASH AND HIVES ciprofloxacin HCl Allergy Rash/Hives, Verified 03/26/18 18:56 [From Cipro] SWELLING OF THROAT clindamycin HCl Allergy Unknown Verified 03/26/18 18:56 [From Cleocin] clindamycin palmitate HCl Allergy Unknown Verified 03/26/18 18:56 [From Cleocin] clindamycin phosphate Allergy Unknown Verified 03/26/18 18:56 [From Cleocin] dexamethasone [From Decadron] Allergy Anaphylaxis Verified 03/26/18 18:56 dexamethasone sod phosphate Allergy Anaphylaxis Verified 03/26/18 18:56 [From Decadron] ,RASH divalproex sodium Allergy Rash/Hives Verified 03/26/18 18:56 [From Depakote] hydroxyzine HCl [From Atarax] Allergy Unknown Verified 03/26/18 18:56 ibuprofen [From Motrin] Allergy RASH Verified 03/26/18 18:56 ,ITCHING SWELLING OF THROAT influenza virus vaccine, Allergy Anaphylaxis Verified 03/26/18 18:56 specific [Influenza Virus Vacc,Specific] Iodinated Contrast- Oral and Allergy Anaphylaxis Verified 03/26/18 18:56 IV Dye ketorolac tromethamine Allergy Chest Pain Verified 03/26/18 18:56 [From Toradol] lidocaine HCl Allergy Anaphylaxis Verified 03/26/18 18:56 [From Xylocaine] lisinopril Allergy Swelling Verified 03/26/18 18:56 meperidine HCl [From Demerol] Allergy Rash/Hives Verified 03/26/18 18:56 Milk Containing Products Allergy ABDOMINAL Verified 03/26/18 18:56 PAIN NAUSEA AND VOMITING morphine Allergy Vomiting Verified 03/26/18 18:56 Mushroom Allergy Anaphylaxis Verified 03/26/18 18:56 nortriptyline HCl Allergy Unknown Verified 03/26/18 18:56 [From Pamelor] omalizumab [From Xolair] Allergy Anaphylaxis Verified 03/26/18 18:56 Penicillins Allergy Rash/Hives Verified 03/26/18 18:56 pregabalin [From Lyrica] Allergy Rash/Hives Verified 03/26/18 18:56 procaine HCl [From Novocain] Allergy Unknown Verified 03/26/18 18:56 shellfish derived Allergy Anaphylaxis Verified 03/26/18 18:56 sulfamethoxazole Allergy Unknown Verified 03/26/18 18:56 [From Marra] tetracycline [Tetracycline] Allergy Rash/Hives Verified 03/26/18 18:56 theophylline anhydrous Allergy Unknown Verified 03/26/18 18:56 [From Joel-Dur] triamcinolone Allergy Anaphylaxis Verified 03/26/18 18:56 trimethoprim [From Septra] Allergy RASH, Verified 03/26/18 18:56 ITCHING vancomycin Allergy ITCHING Verified 03/26/18 18:56 ,HIVES wheat Allergy Rash/Hives Verified 03/26/18 18:56 yellow dye Allergy Anaphylaxis Verified 03/26/18 18:56 erythromycin base AdvReac Rash/Hives Verified 03/26/18 18:56 fentanyl [From Duragesic] AdvReac Unknown Verified 03/26/18 18:56 NSAIDS (Non-Steroidal AdvReac Unknown Verified 03/26/18 18:56 Anti-Inflamma verapamil AdvReac Rash/Hives Verified 03/26/18 18:56 PAPER TAPE Allergy Rash/BLISTE Uncoded 03/26/18 16:48 RS PERSERATIVE IN ALBUTEROL Allergy Dyspnea Uncoded 03/26/18 16:48 INHALER PU steroids Allergy Rash/Hives Uncoded 03/26/18 16:48 WHITE SUTURE Allergy Swelling Uncoded 03/26/18 16:48 Physical Examination - Vital Signs Vital Signs: Vital Signs Temp Pulse Pulse Resp BP BP BP 03/27/18 15:10 94 18 03/27/18 14:48 97.7 F 94 18 132/62 03/27/18 08:48 104 H 121/64 116/62 03/27/18 08:44 96 03/27/18 08:00 104 H 18 03/27/18 07:00 98.1 F 70 18 03/26/18 22:15 97.3 F L 89 16 03/26/18 20:42 76 20 174/81 BP BP Pulse Ox 03/27/18 15:10 03/27/18 14:48 97 03/27/18 08:48 03/27/18 08:44 134/63 03/27/18 08:00 03/27/18 07:00 113/67 97 03/26/18 22:15 143/96 98 03/26/18 20:42 95 Intake and Output 03/27/18 03/27/18 03/27/18 06:59 14:59 22:59 Intake Total 160 120 Balance 160 120 Intake: IV 160 Sodium Chloride 0.9% 1, 160 000 ml @ 20 mls/hr IV . Q24H [facility] Rx#:[id number] Oral 120 Other: Voiding Method Toilet Toilet Toilet # Voids 3 1 Weight 72.575 kg - Constitutional General appearance: average body habitus, cooperative - EENT EENT: PERRL, mucous membranes moist - Respiratory Respiratory: lungs clear, normal breath sounds - Cardiovascular Cardiovascular: regular rate, normal S1, normal S2 Extremities: no peripheral edema bilaterally - Gastrointestinal Gastrointestinal: normoactive bowel sounds - Integumentary Integumentary: normal - Neurologic Cranial nerve examination: PERRL, EOMI, VFF, V1/V2/V3 grossly intact, face symmetric, tongue midline, intact gag reflex, intact corneal reflex, normal palatal elevation Speech examination: intact Sensorimotor examination: intact Motor examination - right side: 4/5: biceps, triceps, wrist flexion, wrist extension, second floor operator, hip flexors, knee extensors, dorsiflexion, toe extension (EHL) , plantarflexion Motor examination - left side: 4/5: biceps, triceps, wrist flexion, wrist extension, second floor operator, hip flexors, knee extensors, dorsiflexion, toe extension (EHL) , plantarflexion Detailed sensory examination: intact Reflex and gait examination: intact Reflexes: 1+: ankle, bicep, knee, tricep - Musculoskeletal Musculoskeletal: no pain - Psychiatric Psychiatric: mood/affect appropriate, agitated, depressed Results - Laboratory Findings CBC and BMP: 03/27/18 07:05 03/27/18 07:05 Abnormal Lab Findings: Abnormal Labs 03/26/18 03/26/18 03/26/18 17:56 17:56 17:56 WBC 20.6 H Hgb Hct Plt Count 637 H Neutrophils # 17.7 H Sodium 129 L Potassium 3.3 L Chloride 86 L BUN 20 H Glucose 136 H Calcium 10.3 H CK-MB (CK-2) 3.4 H Urine Appearance Urine Protein Urine Ketones Urine Blood Ur Leukocyte Esterase Urine RBC Urine WBC Urine WBC Clumps Urine Bacteria Hyaline Casts Urine Mucus Urine Yeast (Budding) 03/26/18 03/27/18 03/27/18 19:18 07:05 07:05 WBC 10.7 H Hgb 10.7 L Hct 31.8 L Plt Count 464 H Neutrophils # Sodium 130 L Potassium 3.1 L Chloride 89 L BUN 18 H Glucose 114 H Calcium CK-MB (CK-2) Urine Appearance Cloudy H Urine Protein 2+ H Urine Ketones Trace H Urine Blood Small H Ur Leukocyte Esterase Large H Urine RBC 54 H Urine WBC 147 H Urine WBC Clumps Few H Urine Bacteria Moderate H Hyaline Casts 8 H Urine Mucus Many H Urine Yeast (Budding) Moderate H Assessment and Plan (1) Fever of unknown origin Current Visit: Yes Status: Acute Code(s): R50.9 - FEVER, UNSPECIFIED SNOMED Code(s): 6256710 (2) Sepsis Current Visit: Yes Status: Acute Code(s): A41.9 - SEPSIS, UNSPECIFIED ORGANISM SNOMED Code(s): 60732138 (3) Analgesic use Current Visit: Yes Status: Acute Code(s): Z79.899 - OTHER SENIOR SQL DBA (CURRENT ) DRUG THERAPY SNOMED Code(s): 729443644 (4) Lumbar degenerative disc disease Current Visit: No Status: Chronic Code(s): M51.36 - OTHER INTERVERTEBRAL DISC DEGENERATION, LUMBAR REGION SNOMED Code(s): 37376241 (5) Urinary tract infection Current Visit: Yes Status: Acute Code(s): N39.0 - URINARY TRACT INFECTION, SITE NOT SPECIFIED SNOMED Code(s): 58520667 (6) Status post insertion of spinal cord stimulator Current Visit: No Status: Chronic Code(s): Z98.89 - OTHER SPECIFIED POSTPROCEDURAL STATES * DO NOT USE * SNOMED Code(s): 762729956 Plan: This patient is a 68-year-old right-handed white female who was admitted to hospital with recent placement of a pain pump for management of chronic pain syndrome. Patient was seen by Dr. Dyson and a pain pump was inserted on 02/19. The pump was working well and she had a refill done on 03/07/2018. Patient developed symptoms of fever and increased pain with abdominal discomfort. She was sent to [facility] for evaluation of sepsis. Actual records from [facility] were not available today at the time of her consultation. She states she was told that she may or may not have MRSA. She was discharged from [facility] on 03/19/2018. Her symptoms worsened over the next several days and she was advised to come today to the emergency room at [facility] for further evaluation. Dr. Dyson was not able to see the patient yesterday or today. The patient was found to have evidence of altered mental status and confusion and for this reason we were consulted today for neurological evaluation and recommendations. The patient has chronic pain syndrome and is unclear whether there is some malfunction of her pain pump. Dr. Dyson was not available and we have recommended the patient should be seen by pain management in the anesthesia Department for their opinion. The patient also sustained a fall today and struck the back of her head and we have recommended a stat computed tomography scan of the brain to be done this evening. She does seem to have evidence of a diffuse encephalopathy secondary to sepsis. We have recommended an infectious disease consultation for this patient with Dr. Krishna. We will need to obtain the records from [facility] as to her overall hospital course there and final decision at discharge. Patient is not a very good historian and cannot provide details of her various hospital stays. This patient's overall prognosis at this time remains very guarded. We will work with Dr. Dunn for further management of her condition. If her condition should worsen she may be considered for transfer to a tertiary center for higher level of care. Her overall prognosis at this time remains very guarded. Time with Patient: Greater than 30
--- NOTE | 2018-03-27 23:14 | CONS ---
CONSULTATION REASON FOR CONSULT: Hyponatremia. HISTORY OF PRESENT ILLNESS: Patient is a 68-year-old female who was admitted to the hospital with complaints of weakness and fatigue. Patient states she was recently admitted to [facility]. There was a consideration of infection of the pain pump. She follows with Dr. Dyson as well. The patient had been on antibiotics. She stated she was not drinking or eating much prior to admission and was increasingly weak. She was found to have a serum sodium of 129 mEq/L. Patient is currently maintained on normal saline and serum sodium is at 131 The fluids are now KVO. Serum potassium was low. PAST MEDICAL HISTORY: History of chest pain, asthma, CVA, TIA, fibromyalgia, gastroesophageal reflux disease, osteoarthritis, hypothyroidism, endometriosis, kidney stones, CVA, CKD stage 3, cardiomyopathy. PAST SURGICAL HISTORY: Adenoidectomy, back surgery, bariatric surgery, cholecystectomy, hysterectomy, tubal ligation, lithotripsy, cataract surgery, gastric sleeve procedure, insertion of a pain stimulator being followed by Dr. Dyson at the [facility]. SOCIAL HISTORY: Negative for smoking, drug abuse or alcohol abuse. MEDICATIONS: Prior to admission include Norvasc, losartan, vitamin D3, Sinemet, vitamin C, iron, Zofran, aspirin, Valtrex, Singulair, Synthroid, Lopressor, Advair, Cymbalta, Plavix. ALLERGIES: Multiple, please see chart. REVIEW OF SYSTEMS: As per HPI. Other systems negative. EXAMINATION: Patient is currently comfortable, awake, alert, oriented x3. She is not in any acute distress. Blood pressure was 116/62, heart rate 104 per minute. She is afebrile. Examination of the heart S1, S2. Examination lungs bilateral breath sounds are heard. Abdomen is soft, nontender. Exam of lower extremities shows no significant edema. CIRCUIT WALKER exam is grossly intact. LAB: Shows sodium 130, potassium 3.1, BUN 18, serum creatinine 0.59, hemoglobin 10.7 g/dL. UA shows WBCs 147, 2+ protein, blood small was noted as well. ASSESSMENT: 1. Hyponatremia, most likely hypovolemic, currently improved. Will start gentle saline administration. 2. Hypokalemia associated with decreased oral intake. We will replace. 3. Mild hypercalcemia, currently improved, most likely associated with hypovolemia. 4. Urinary tract infection. Urine culture is currently pending. 5. Chronic pain, being followed at the Pain Clinic with pain stimulator. PLAN: Replace potassium, start gentle saline administration and repeat labs in a.m. MICHELLE / KALN: [id number] /
[2018-03-28] MEDS: LEVOTHYROXINE 88 MCG TAB PO SCH (06:18)
[2018-03-28] MEDS: ONDANSETRON 4 MG TAB PO PRN (06:20)
[2018-03-28] MEDS: PANTOPRAZOLE 40 MG/10 ML VIAL IVP SCH ×2 (09:30→20:25)
[2018-03-28] MEDS: LOSARTAN 50 MG TAB PO SCH (09:33)
[2018-03-28] MEDS: amLODIPine 10 MG TAB PO SCH ×2 (09:33→20:24)
[2018-03-28] MEDS: HEPARIN SODIUM,PORCINE 5,000 UNIT/ML 1 ML VIAL SQ SCH ×2 (09:33→20:24)
[2018-03-28] MEDS: valACYclovir HCL 1,000 MG TABLET PO SCH (09:34)
[2018-03-28] MEDS: CHOLECALCIFEROL 1,000 UNIT TAB PO SCH (09:34)
[2018-03-28] MEDS: ASCORBIC ACID 500 MG TAB PO SCH (09:35)
[2018-03-28] MEDS: cycloSPORINE 0.05% OPHTH 0.4 ML DROPERETTE BOTH EYES SCH ×2 (09:36→20:24)
[2018-03-28] MEDS: DULoxetine HCL 60 MG CAPSULE.DR PO SCH ×2 (09:36→20:24)
[2018-03-28] MEDS: CLOPIDOGREL 75 MG TAB PO SCH (09:36)
[2018-03-28] MEDS: FERROUS SULFATE 325 MG TAB PO SCH (09:37)
[2018-03-28] MEDS: METOPROLOL TARTRATE 50 MG TAB PO SCH ×2 (09:37→20:25)
[2018-03-28] MEDS: DAPTOmycin 500 MG in SODIUM CHLORIDE 0.9% 50 ML IVPB SCH (09:46)
[2018-03-28 10:18] LABS: Basophils % (A) 0 %; Eosinophils # (A) 0.1 k/uL (0-0.7); Eosinophils % (A) 1 %; HCT 30.9 % (34.0-46.0); HGB 10.4 gm/dL (11.4-16.0); Lymphocytes # (A) 1.9 k/uL (1.0-4.8); Lymphocytes % (A) 15 %; MCHC 33.5 g/dL (31.0-37.0); MCV 83.6 fL (80.0-100.0); Mean Platelet Volume 6.3; Monocytes # (A) 0.5 k/uL (0-1.0); Monocytes % (A) 4 %; Neutrophils # (A) 10.2 k/uL (1.3-7.7); Neutrophils % (A) 80 %; Platelet Count 473 k/uL (150-450); RDW 12.7 % (11.5-15.5); WBC 12.9 k/uL (3.8-10.6)
[2018-03-28 10:29] LABS: Anion Gap 9 mmol/L; Blood Urea Nitrogen 12 mg/dL (7-17); Calcium 9.1 mg/dL (8.4-10.2); Carbon Dioxide 26 mmol/L (22-30); Chloride 93 mmol/L (98-107); Glucose 106 mg/dL (74-99); Potassium 4.3 mmol/L (3.5-5.1); Sodium 128 mmol/L (137-145)
[2018-03-28] MEDS: THIAMINE 100 MG TAB PO SCH (13:36)
[2018-03-28] MEDS: MULTIVITAMINS, THERA 1 EACH TAB PO SCH (13:36)
[2018-03-28] MEDS: FOLIC ACID 1 MG TAB PO SCH (13:36)
[2018-03-28] MEDS ORDERED: FUROSEMIDE 40 MG TAB PO STA (13:59)
--- NOTE | 2018-03-28 15:10 | PN ---
PROGRESS NOTE Patient is seen for followup for hyponatremia. She was started on normal saline yesterday at 50 mL an hour. Her sodium this morning has gone down to 128 from 130 yesterday. The patient is also complaining of diarrhea which she had last night. She is currently being treated for urinary tract infection. Blood cultures grew possible MRSA. Urine culture is negative. PHYSICAL EXAMINATION: Blood pressure 126/67, heart rate of 85 per minute, patient is afebrile. Examination of the heart S1, S2. Examination lungs bilateral breath sounds are heard. Abdomen is soft, nontender. Examination lower extremities shows no edema. PHOTO JOURNALIST exam is grossly intact. LABS: From today show sodium 128, potassium 4.3, BUN 12, serum creatinine 0.6. ASSESSMENT: 1. Hyponatremia secondary to SIADH possibly as urine osmolality was elevated at 487, but random urine sodium was low at 10. The patient's sodium worsened with saline. I will discontinue the saline for now. We will give her a small dose of oral Lasix and repeat labs in a.m. 2. Methicillin-resistant Staphylococcus aureus bacteremia. The patient will need vancomycin. 3. Hypertension, currently controlled. 4. Diarrhea, we will continue to watch. PLAN: Vancomycin x1, further evaluation of the pain pump which was recently inserted as possible source of infection. Recommend ID consult. MMODL / IJN: [id number] /
--- NOTE | 2018-03-28 16:16 | PN ---
PROGRESS NOTE DATE OF SERVICE: 03/28/2018 INTERVAL HISTORY: This is a 68-year-old female patient who was admitted with tiredness and weakness with elevated white cell count and features of urinary tract infection with sepsis. The patient also had a recent pain pump insertion by the neurologist. The patient continued to complain of exacerbation of chronic pain. She also had hypernatremia and hyperkalemia and was seen by pocketed spring machine operator. The patient will be following by a neurologist. The patient was seen and examined this morning along with Dr. Dunn. She was lying in bed. Denied fever, chills or diaphoresis. Denied chest pain or palpitation. Denied worsening shortness of breath, cough or sputum production. Denied abdominal pain, nausea, vomiting, diarrhea, or constipation. Denied urgency, frequency, dysuria. PHYSICAL EXAMINATION: Vital signs: Temperature 98.3, heart rate 85, respiratory rate 16, blood pressure 160/75, pulse ox 98 percent on room air. GENERAL: Patient is lying in bed, awake, oriented x3, did not appear to be in any acute discomfort. HEENT: Conjunctiva normal. Oral mucosa moist. NECK: Supple. No JVD. CARDIOVASCULAR: S1, S2 present. Regular rate and rhythm. No S3 or S4. RESPIRATORY: Lung sounds are diminished in the bases. No rhonchi, crackles, or wheezing. ABDOMEN: Soft, nondistended, nontender. Bowel sounds are normoactive. EXTREMITIES: No significant edema. Peripheral pulses 2+ bilaterally. NEUROLOGIC: Awake, oriented x3. Diffuse weakness. PSYCHIATRIC: Anxious. LABS: WBC 12.9, hemoglobin 10.4, hematocrit 30.9, platelet 473. Sodium 128, potassium 4.3, CO2 of 26, BUN 12, creatinine 0.6. ASSESSMENT AND PLAN: 1. Acute urinary tract infection with sepsis present on admission. 2. Chronic pain, recent pain pump insertion. 3. Leukocytosis, possibly secondary to sepsis. 4. Hyponatremia, on gentle hydration. Nephrology is following. 5. Hypokalemia, resolved. 6. Gait dysfunction. 7. Asthma. 8. History of chest pain. 9. History of CVA/TIA. 10.History of fibromyalgia. 11.History of gastroesophageal reflux disease. 12.Hypertension. 13.Hyperlipidemia. 14.Degenerative joint disease. 15.Hypothyroidism. 16.History of cardiomyopathy. 17.Anxiety, depression, and panic disorder. PLAN: We will continue current medications. The patient is also followed by multiple consultants. Continue IV antibiotics. Repeat CBC and BMP in the morning. Continue GI and DVT prophylaxis. Continue pain medications. Overall prognosis is guarded. Monitor patient closely. Further plans based on her clinical course. I performed a history and physical examination of the patient and discussed plan of management with the nurse practitioner. I reviewed the nurse practitioner's note and agree with the documented findings and plan of care. LOGANL / KALN: [id number] /
[2018-03-28] MEDS: SYMBICORT 160-4.5 MCG INHALER INHALATION SCH ×2 (19:16→21:48)
[2018-03-28] MEDS: CARBIDOPA-LEVODOPA 25-100 MG 1 EACH TAB PO SCH (20:24)
[2018-03-28] MEDS: ASPIRIN 81 MG PO SCH (20:24)
[2018-03-28] MEDS: LEVOFLOXACIN 750MG-D5W PMX 750 MG in DEXTROSE/WATER 1 150ML.BAG IVPB SCH (20:24)
[2018-03-28] MEDS: MONTELUKAST 10 MG TAB PO SCH (20:25)
--- NOTE | 2018-03-28 22:07 | P.CONS ---
History of Present Illness - Reason for Consult Consult date: 03/28/18 - Chief Complaint Progressive weakness - History of Present Illness 68-year-old female who has a extensive past medical history including a history of TIA, fibromyalgia, obesity treated by LAP-BAND with adequate success, and severe back pain. She's undergone multiple procedures in the past for her back and several years ago had a spinal cord stimulator placed. She had modestly good control of her pain with this device but eventually broke and was no longer effective. Because of her severe and ongoing back pain she was evaluated and had a trial of a intrathecal pain pump. She had good results and consequently the pain pump was officially placed last month. She was having relatively good control of her pain that she started to feel very poorly. She had fevers and presented to a local hospital. There was concerns because she had fever she was infection of her pain pump was transferred to the facility where it was implanted. Those records are available for review. She was seen by infectious diseases and the implanting surgeon. Imaging studies reveal evidence of the fluid collection near the implant and aspiration was obtained which failed to reveal evidence of underlying infection. No cultures were noted be positive from the local hospital or the outside hospital when cultures were obtained. The patient or continue to feel worse over time it was progressive fatigue and malaise and fever she presented to our emergency center for further evaluation. Her neurologist could not be reached and the neurologist on-call has been brought in and pain management services have also been requested. Infectious diseases consultation was requested because of 101.3 fever and concerns to infection of her pump. At the time the consult is called there is evidence of a positive blood culture. Review of Systems 5-year-old woman who although is quite uncomfortable is pleasant cooperative and a good historian. She does relate to having an ALLERGY to yellow dye #3 as well as with the preservatives that gives her great difficulties with many medications. She relates that vancomycin cause her to have some itching. HEENT:Denies headache or acute visual change. Denies sinus or mouth discomforts. Denies neck stiffness or pain. Denies significant oral cavity pain. Denies difficulty on swallowing. Lungs: Denies significant shortness of breath, cough, sputum production, or hemoptysis. Cardiovascular: Denies significant shortness of breath, chest pain, chest wall pain, orthopnea, dyspnea on exertion, syncope Gastrointestinal:Denies nausea, vomiting, diarrhea, constipation, hematemesis, melena, hematochezia. No no significant change of bowel habit noticed. Musculoskeletal: Chronic severe back pain as per the HPI Skin: Denies new rash or lesions. No new ulcers or wounds are related.. Neuro: Denies headache or visual change. Denies any new onset weakness or difficulty with ambulation. Denies falls or seizures. Psychiatric:Denies anxiety or depression. Endocrine: Has significant fatigue weight has been stable Past Medical History Past Medical History: Asthma, Cancer, Chest Pain / Angina, CVA/TIA, Fibromyalgia , GERD/Reflux, Hyperlipidemia, Hypertension, Osteoarthritis (OA), Renal Disease , Sleep Apnea/CPAP/BIPAP, Thyroid Disorder Additional Past Medical History / Comment(s): stage 3 renal failure 30%, stroke X4 - LT SIDE WEAKNESS. cancer Lt leg (replaced with titanium), fibroids, endometriosis, cyst big toe, kidney stones. HAS DIABETES INSIPIDUS,anemia, phlebitis, cardiomyopathy dx December 2015 History of Any Multi-Drug Resistant Organisms: MRSA Year Discovered:: 03/26/18 MDRO Source:: BLOOD Past Surgical History: Appendectomy, Back Surgery, Bariatric Surgery, Cholecystectomy, Heart Catheterization, Hysterectomy, Joint Replacement, Orthopedic Surgery, Tubal Ligation Additional Past Surgical History / Comment(s): lithotripsy, bilateral cataract surgery, surgeries in legs for breaking of scar tissue, hand surgery, lapband removal 2012 (implanted 2007), Gastric sleeve ,, pain stimulator, PAIN CLINIC PROCEDURE Past Anesthesia/Blood Transfusion Reactions: Previous Problems w/ Anesthesia Additional Past Anesthesia/Blood Transfusion Reaction / Comm: LONGER WAKING UP Past Psychological History: Anxiety, Depression, Panic Disorder Additional Psychological History / Comment(s): . Lives independently but her daughter is hopeful. No animals in the home. Retired. No experience. No international travel. Lifelong nonsmoker. No history of alcohol or recreational drug use Smoking Status: Never smoker Past Alcohol Use History: Rare Past Drug Use History: None Reported - Past Family History Mother Family Medical History: CVA/TIA Daughter(s) Additional Family Medical History / Comment(s): dvt Medications and Allergies Home Medications and Allergies Comment(s): Current Medications Acetaminophen (Tylenol Tab) 650 mg PO Q6HR PRN PRN Reason: Mild Pain or Fever > 100.5 Last Admin: 03/27/18 21:31 Dose: 650 mg Albuterol Sulfate (Ventolin Nebulized) 2.5 mg INHALATION Q6HR PRN PRN Reason: Shortness Of Breath Alprazolam (Xanax) 0.25 mg PO TID PRN PRN Reason: Anxiety Amlodipine Besylate (Norvasc) 10 mg PO BID [facility] Last Admin: 03/28/18 20:24 Dose: 10 mg Ascorbic Acid (Vitamin C) 1,000 mg PO DAILY [facility] Last Admin: 03/28/18 09:35 Dose: 1,000 mg Aspirin (Aspirin) 81 mg PO HS [facility] Last Admin: 03/28/18 20:24 Dose: 81 mg Bisacodyl (Dulcolax) 5 mg PO DAILY PRN PRN Reason: Constipation Budesonide/Formoterol Fumarate (Symbicort 160-4.5 Mcg Inhaler) 2 puff INHALATION RT-BID [facility] Last Admin: 03/28/18 19:16 Dose: Not Given Carbidopa/Levodopa (Sinemet 25-100) 1 each PO HS [facility] Last Admin: 03/28/18 20:24 Dose: 1 each Cholecalciferol (Vitamin D3) 5,000 unit PO DAILY [facility] Last Admin: 03/28/18 09:34 Dose: 5,000 unit Clopidogrel Bisulfate (Plavix) 75 mg PO DAILY [facility] Last Admin: 03/28/18 09:36 Dose: 75 mg Cycl[facility]ine ([facility] 1 drops BOTH EYES BID [facility] Last Admin: 03/28/18 20:24 Dose: 1 drops Duloxetine HCl (Cymbalta) 60 mg PO BID [facility] Last Admin: 03/28/18 20:24 Dose: 60 mg Ferrous Sulfate (Feosol) 325 mg PO DAILY [facility] Last Admin: 03/28/18 09:37 Dose: 325 mg Folic Acid (Folic Acid) 1 mg PO DAILY@1200 [facility] Last Admin: 03/28/18 13:36 Dose: Not Given Heparin Sodium (Porcine) (Heparin) 5,000 unit SQ Q12HR [facility] Last Admin: 03/28/18 20:24 Dose: 5,000 unit Hydromorphone HCl (Dilaudid) 0.5 mg IVP Q4HR PRN PRN Reason: MODERATE Pain Last Admin: 03/27/18 14:31 Dose: 0.5 mg Levofloxacin 750 mg/ IV (Solution) 150 mls @ 100 mls/hr IVPB Q24H [facility] Last Admin: 03/28/18 20:24 Dose: 100 mls/hr Daptomycin 500 mg/ Sodium (Chloride) 50 mls @ 100 mls/hr IVPB Q24H [facility]; Protocol Last Admin: 03/28/18 09:46 Dose: 100 mls/hr Levothyroxine Sodium (Synthroid) 88 mcg PO QAM@0600 [facility] Last Admin: 03/28/18 06:18 Dose: 88 mcg Losartan Potassium (Cozaar) 100 mg PO DAILY [facility] Last Admin: 03/28/18 09:33 Dose: 100 mg Metoprolol Tartrate (Lopressor) 50 mg PO BID [facility] Last Admin: 03/28/18 20:25 Dose: 50 mg Montelukast Sodium (Singulair) 10 mg PO HS [facility] Last Admin: 03/28/18 20:25 Dose: 10 mg Multivitamins (Theragran) 1 each PO DAILY@1200 [facility] Last Admin: 03/28/18 13:36 Dose: Not Given Naloxone HCl (Narcan) 0.2 mg IV Q2M PRN PRN Reason: Opioid Reversal Ondansetron HCl (Zofran) 8 mg PO Q12HR PRN PRN Reason: Nausea Last Admin: 03/28/18 06:20 Dose: 8 mg Ondansetron HCl (Zofran) 4 mg IVP Q6HR PRN PRN Reason: Nausea And Vomiting Pantoprazole Sodium (Protonix) 40 mg IVP BID [facility] Last Admin: 03/28/18 20:25 Dose: 40 mg Thiamine HCl (Vitamin B-1) 100 mg PO DAILY@1200 [facility] Last Admin: 03/28/18 13:36 Dose: Not Given Valacyclovir HCl (Valtrex) 1,000 mg PO DAILY [facility] Last Admin: 03/28/18 09:34 Dose: 1,000 mg Home Medications Medication Instructions Recorded Confirmed Type Clopidogrel [Plavix] 75 mg PO DAILY 01/04/14 03/26/18 History DULoxetine HCL [Cymbalta] 60 mg PO BID 01/04/14 03/26/18 History Fluticasone/Salmeterol [Advair 1 puff INHALATION RT-BID 01/04/14 03/26/18 History 500-50 Diskus] Levothyroxine Sodium [Synthroid] 88 mcg PO QAM 01/04/14 03/26/18 History Metoprolol Tartrate [Lopressor] 50 mg PO BID 01/04/14 03/26/18 History Montelukast [Singulair] 10 mg PO HS 01/04/14 03/26/18 History Aspirin 81 mg PO HS 02/07/14 03/26/18 History valACYclovir HCL [Valtrex] 1,000 mg PO DAILY PRN 02/07/14 03/26/18 History Ondansetron HCl [Zofran] 8 mg PO Q12HR PRN 02/21/15 03/26/18 History Vitamin B Complex 1 cap PO DAILY 02/21/15 03/26/18 History cycloSPORINE [Restasis] 1 drops BOTH EYES BID 02/21/15 03/26/18 History Biotin 5 mg PO DAILY 04/26/15 03/26/18 History Ferrous Sulfate [Feosol] 325 mg PO DAILY 04/26/15 03/26/18 History Ascorbic Acid [Vitamin C] 1,000 mg PO DAILY 05/13/16 03/26/18 History Bisacodyl 5 mg PO DAILY PRN 03/26/18 03/26/18 History Carbidopa-Levodopa 25-100 mg 1 tab PO HS 03/26/18 03/26/18 History [Sinemet 25-100] Cholecalciferol [Vitamin D3] 5,000 unit PO DAILY 03/26/18 03/26/18 History EPINEPHrine [Auvi-Q] 0.3 mg IM DIRECTED PRN 03/26/18 03/26/18 History Levalbuterol Hfa Inhaler [Xopenex 1 - 2 puff INHALATION Q6HR PRN 03/26/18 History Hfa Inhaler] Losartan Potassium 100 mg PO DAILY 03/26/18 03/26/18 History amLODIPine [Norvasc] 10 mg PO BID 03/26/18 03/26/18 History Allergies Allergy/AdvReac Type Severity Reaction Status Date / Time aripiprazole [From Abilify] Allergy Anaphylaxis Verified 03/26/18 18:56 baclofen Allergy Anaphylaxis Verified 03/26/18 18:56 butalbital [From Fioricet] Allergy Rash/Hives Verified 03/26/18 18:56 cefadroxil hydrate Allergy Rash/Hives Verified 03/26/18 18:56 [From Duricef] cefazolin sodium Allergy Anaphylaxis Verified 03/26/18 18:56 [From Kefzol] cephalexin monohydrate Allergy Anaphylaxis Verified 03/26/18 18:56 [From Keflex] ciprofloxacin [From Cipro] Allergy Swelling Verified 03/26/18 18:56 OF THROAT ,RASH AND HIVES ciprofloxacin HCl Allergy Rash/Hives, Verified 03/26/18 18:56 [From Cipro] SWELLING OF THROAT clindamycin HCl Allergy Unknown Verified 03/26/18 18:56 [From Cleocin] clindamycin palmitate HCl Allergy Unknown Verified 03/26/18 18:56 [From Cleocin] clindamycin phosphate Allergy Unknown Verified 03/26/18 18:56 [From Cleocin] dexamethasone [From Decadron] Allergy Anaphylaxis Verified 03/26/18 18:56 dexamethasone sod phosphate Allergy Anaphylaxis Verified 03/26/18 18:56 [From Decadron] ,RASH divalproex sodium Allergy Rash/Hives Verified 03/26/18 18:56 [From Depakote] hydroxyzine HCl [From Atarax] Allergy Unknown Verified 03/26/18 18:56 ibuprofen [From Motrin] Allergy RASH Verified 03/26/18 18:56 ,ITCHING SWELLING OF THROAT influenza virus vaccine, Allergy Anaphylaxis Verified 03/26/18 18:56 specific [Influenza Virus Vacc,Specific] Iodinated Contrast- Oral and Allergy Anaphylaxis Verified 03/26/18 18:56 IV Dye ketorolac tromethamine Allergy Chest Pain Verified 03/26/18 18:56 [From Toradol] lidocaine HCl Allergy Anaphylaxis Verified 03/26/18 18:56 [From Xylocaine] lisinopril Allergy Swelling Verified 03/26/18 18:56 meperidine HCl [From Demerol] Allergy Rash/Hives Verified 03/26/18 18:56 Milk Containing Products Allergy ABDOMINAL Verified 03/26/18 18:56 PAIN NAUSEA AND VOMITING morphine Allergy Vomiting Verified 03/26/18 18:56 Mushroom Allergy Anaphylaxis Verified 03/26/18 18:56 nortriptyline HCl Allergy Unknown Verified 03/26/18 18:56 [From Pamelor] omalizumab [From Xolair] Allergy Anaphylaxis Verified 03/26/18 18:56 Penicillins Allergy Rash/Hives Verified 03/26/18 18:56 pregabalin [From Lyrica] Allergy Rash/Hives Verified 03/26/18 18:56 procaine HCl [From Novocain] Allergy Unknown Verified 03/26/18 18:56 shellfish derived Allergy Anaphylaxis Verified 03/26/18 18:56 sulfamethoxazole Allergy Unknown Verified 03/26/18 18:56 [From ] tetracycline [Tetracycline] Allergy Rash/Hives Verified 03/26/18 18:56 theophylline anhydrous Allergy Unknown Verified 03/26/18 18:56 [From Joel-Dur] triamcinolone Allergy Anaphylaxis Verified 03/26/18 18:56 trimethoprim [From ] Allergy RASH, Verified 03/26/18 18:56 ITCHING vancomycin Allergy ITCHING Verified 03/26/18 18:56 ,HIVES wheat Allergy Rash/Hives Verified 03/26/18 18:56 yellow dye Allergy Anaphylaxis Verified 03/26/18 18:56 erythromycin base AdvReac Rash/Hives Verified 03/26/18 18:56 fentanyl [From Duragesic] AdvReac Unknown Verified 03/26/18 18:56 NSAIDS (Non-Steroidal AdvReac Unknown Verified 03/26/18 18:56 Anti-Inflamma verapamil AdvReac Rash/Hives Verified 03/26/18 18:56 PAPER TAPE Allergy Rash/BLISTE Uncoded 03/26/18 16:48 RS PERSERATIVE IN ALBUTEROL Allergy Dyspnea Uncoded 03/26/18 16:48 INHALER PU steroids Allergy Rash/Hives Uncoded 03/26/18 16:48 WHITE SUTURE Allergy Swelling Uncoded 03/26/18 16:48 Physical Exam Vitals: Vital Signs Temp Pulse Resp BP BP BP BP 03/28/18 15:00 98.4 F 67 18 148/70 03/28/18 14:59 85 16 03/28/18 12:37 98.3 F 85 16 160/75 03/28/18 12:20 85 16 03/28/18 09:38 130/72 126/67 139/62 03/28/18 08:00 85 16 03/28/18 07:19 98.3 F 85 16 160/75 03/27/18 23:22 96.6 F L 99 16 132/68 136/66 146/64 03/27/18 22:31 98.0 F 92 18 161/85 Pulse Ox 03/28/18 15:00 96 09/09/18 14:59 03/28/18 12:37 98 03/28/18 12:20 03/28/18 09:38 03/28/18 08:00 03/28/18 07:19 98 03/27/18 23:22 03/27/18 22:31 99 Intake and Output 03/28/18 03/28/18 03/28/18 06:59 14:59 22:59 Intake Total 400 160 Output Total 800 Balance 400 -640 Intake: IV 400 Sodium Chloride 0.9% 1, 400 000 ml @ 50 mls/hr IV . Q20H DENICE Rx#:[id number] Oral 160 Output: Urine 800 Other: Voiding Method Bedside Commode # Voids 2 2 Pleasant 68-year-old woman who currently is modestly comfortable and relates her fever has improved. HEENT: Anicteric conjunctiva are pink and moist nasal mucosa grossly intact without significant lesions, there is no thrush. Neck: The neck is supple without significant lymphadenopathy or thyromegaly. Lungs: Good bilateral air entry without significant crackles or wheezing. There is no significant bronchial sounds. There is no egophony or dullness. Heart: Regular rate and rhythm with an audible S1-S2, no S3 no S4. There is no significant murmur click or rub, PMI was nondisplaced. Abdomen: Positive bowel sounds soft and nontender without palpable masses or organomegaly. There was no guarding or rebound. Extremities: The upper extremities have excellent pulses they are symmetric, no significant petechiae or telangiectasia. No splinter hemorrhages were noted. Lower extremities have trace bilateral lower extremity edema that is without change. Pulses are 2+ and symmetric Neuro: Awake alert oriented to person place and time. There are no acute new gross focal sensory motor deficits. The implant site for the epidural pain pump in the abdominal wall was intact without significant erythema. The posterior incision appears to be modestly well healed it has minimal erythema is not grossly fluctuant and there is no expressible purulence. The prior spinal cord stimulator is palpable above the left buttocks and is tender to manipulation but it is not fluctuant. The rest of skin is without rash or breakdown. Results CBC & Chem 7: 03/28/18 10:00 03/28/18 10:00 Labs: Abnormal Lab Results - Last 24 Hours (Table) 03/28/18 03/28/18 03/28/18 Range/Units 10:00 10:00 10:00 WBC 12.9 H (3.8-10.6) k/uL RBC 3.70 L (3.80-5.40) m/uL Hgb 10.4 L (11.4-16.0) gm/dL Hct 30.9 L (34.0-46.0) % Plt Count 473 H (150-450) k/uL Neutrophils # 10.2 H (1.3-7.7) k/uL ESR 54 H (0-20) mm/hr Sodium 128 L (137-145) mmol/L Chloride 93 L (98-107) mmol/L Glucose 106 H (74-99) mg/dL Microbiology - Last 24 Hours (Table) 03/26/18 10:50 Urine Culture - Final Urine,Voided 03/26/18 18:38 Blood Culture Gram Stain - Preliminary Blood Blood Culture - Preliminary Presumptive MRSA Laboratory Results WBC 12.9 k/uL (3.8-10.6) H 03/28/18 10:00 RBC 3.70 m/uL (3.80-5.40) L 03/28/18 10:00 Hgb 10.4 gm/dL (11.4-16.0) L 03/28/18 10:00 Hct 30.9 % (34.0-46.0) L 03/28/18 10:00 MCV 83.6 fL (80.0-100.0) 03/28/18 10:00 MCH 28.0 pg (25.0-35.0) 03/28/18 10:00 MCHC 33.5 g/dL (31.0-37.0) 03/28/18 10:00 RDW 12.7 % (11.5-15.5) 03/28/18 10:00 Plt Count 473 k/uL (150-450) H 03/28/18 10:00 Neutrophils % 80 % 03/28/18 10:00 Lymphocytes % 15 % 03/28/18 10:00 Monocytes % 4 % 03/28/18 10:00 Eosinophils % 1 % 03/28/18 10:00 Basophils % 0 % 03/28/18 10:00 Neutrophils # 10.2 k/uL (1.3-7.7) H 03/28/18 10:00 Lymphocytes # 1.9 k/uL (1.0-4.8) 03/28/18 10:00 Monocytes # 0.5 k/uL (0-1.0) 03/28/18 10:00 Eosinophils # 0.1 k/uL (0-0.7) 03/28/18 10:00 Basophils # 0.0 k/uL (0-0.2) 03/28/18 10:00 ESR 54 mm/hr (0-20) H 03/28/18 10:00 PT 11.0 sec (9.0-12.0) 03/26/18 17:56 INR 1.1 (<1.2) 03/26/18 17:56 Sodium 128 mmol/L (137-145) L 03/28/18 10:00 Potassium 4.3 mmol/L (3.5-5.1) 03/28/18 10:00 Chloride 93 mmol/L (98-107) L 03/28/18 10:00 Carbon Dioxide 26 mmol/L (22-30) 03/28/18 10:00 Anion Gap 9 mmol/L 03/28/18 10:00 BUN 12 mg/dL (7-17) 03/28/18 10:00 Creatinine 0.60 mg/dL (0.52-1.04) 03/28/18 10:00 Est GFR (CKD-EPI)AfAm >90 (>60 ml/min/1.73 sqM) 03/28/18 10:00 Est GFR (CKD-EPI)NonAf >90 (>60 ml/min/1.73 sqM) 03/28/18 10:00 Glucose 106 mg/dL (74-99) H 03/28/18 10:00 Plasma Lactic Acid Anjel 1.5 mmol/L (0.7-2.0) 03/26/18 18:38 Calcium 9.1 mg/dL (8.4-10.2) 03/28/18 10:00 Total Bilirubin 0.7 mg/dL (0.2-1.3) 03/26/18 17:56 AST 24 U/L (14-36) 03/26/18 17:56 ALT 30 U/L (9-52) 03/26/18 17:56 Alkaline Phosphatase 83 U/L (38-126) 03/26/18 17:56 Total Creatine Kinase 135 U/L (30-135) 03/26/18 17:56 CK-MB (CK-2) 3.4 ng/mL (0.0-2.4) H 03/26/18 17:56 CK-MB (CK-2) Rel Index 2.5 03/26/18 17:56 Troponin I <0.012 ng/mL (0.000-0.034) 03/26/18 17:56 Total Protein 7.7 g/dL (6.3-8.2) 03/26/18 17:56 Albumin 4.4 g/dL (3.5-5.0) 03/26/18 17:56 Urine Color Yellow 03/26/18 19:18 Urine Appearance Cloudy (Clear) H 03/26/18 19:18 Urine pH 6.0 (5.0-8.0) 03/26/18 19:18 Ur Specific [place] 1.017 (1.001-1.035) 03/26/18 19:18 Urine Protein 2+ (Negative) H 03/26/18 19:18 Urine Glucose (UA) Negative (Negative) 03/26/18 19:18 Urine Ketones Trace (Negative) H 03/26/18 19:18 Urine Blood Small (Negative) H 03/26/18 19:18 Urine Nitrite Negative (Negative) 03/26/18 19:18 Urine Bilirubin Negative (Negative) 03/26/18 19:18 Urine Urobilinogen 2.0 mg/dL (<2.0) 03/26/18 19:18 Ur Leukocyte Esterase Large (Negative) H 03/26/18 19:18 Urine RBC 54 /hpf (0-5) H 03/26/18 19:18 Urine WBC 147 /hpf (0-5) H 03/26/18 19:18 Urine WBC Clumps Few /hpf (None) H 03/26/18 19:18 Ur Squamous Epith Cells 1 /hpf (0-4) 03/26/18 19:18 Urine Bacteria Moderate /hpf (None) H 03/26/18 19:18 Hyaline Casts 8 /lpf (0-2) H 03/26/18 19:18 Urine Mucus Many /hpf (None) H 03/26/18 19:18 Urine Yeast (Budding) Moderate /hpf (None) H 03/26/18 19:18 Urine Osmolality 487 mosm/kg (50-1400) 03/27/18 10:50 Ur Random Sodium 10 mmol/L 03/27/18 10:50 Microbiology 03/26/18 18:38 Blood Blood Culture Gram Stain - Preliminary 03/26/18 18:38 Blood Blood Culture - Final Methicillin resist S. aureus 03/26/18 10:50 Urine,Voided Urine Culture - Final 03/26/18 18:38 Blood Blood Culture - Final CT Scan - head: report reviewed (No acute change) Assessment and Plan (1) Fever Current Visit: Yes Status: Acute Code(s): R50.9 - FEVER, UNSPECIFIED SNOMED Code(s): 250005272 (2) Gram-positive cocci bacteremia Narrative/Plan: 68-year-old female presents to hospital with weakness and feeling poorly and having fever at home. She is a very complex past medical history regarding her chronic back pain with history of a prior spinal cord stimulator that had failed. In February she had a epidural pain pump applied the trial went well and then at follow-up, pump was applied she's developed good control of her pain. Now presents feeling poorly and has been noticed that she has fever, leukocytosis and with evidence of possible cultures the infectious diseases consultation was requested. The the laboratory is now reporting the Gram- positive cocci. Outside data is reviewed which shows the imaging studies with a fluid collection around the pain pump this was aspirated the outside hospital and cultures were negative. Blood cultures at the [facility] in the outside hospital were also negative. She's now developed what appears to be staph aureus bacteremia and with her many ALLERGIES daptomycin is initiated. Follow-up cultures are requested. The patient's neurologist Dr. Dyson has been consulted and pain management has also been requested. Fortunately at this time she has modestly comfortable. She was having some difficulty with urgency of urination and stool yesterday. She went to use the bathroom but the roommate was in the bathroom in counseling she walked in the hallway looking for bathroom suffering a fall. Computed tomography scan of her head was performed without acute bleed or other abnormality. Fortunately not feeling poorly at this time. Depending on the findings she made need transfer to the tertiary center for evaluation and removal of the pain pump, it is still the most likely etiology of the current staph aureus bacteremia. Echocardiogram has been requested also. Current Visit: Yes Status: Acute Code(s): R78.81 - BACTEREMIA SNOMED Code( s): 727603864465
--- NOTE | 2018-03-28 22:25 | PN ---
PROGRESS NOTE DATE OF SERVICE: 03/28/2018 This 68-year-old woman who was admitted with acute UTI and sepsis also had chronic pain syndrome. Seen and evaluated the patient along with the nurse practitioner. Please refer to nurse practitioner's notes and impression documented as a scribe for further information. MMODL / IJN: [id number] /
[2018-03-29] MEDS: ACETAMINOPHEN TAB 325 MG TAB PO PRN ×2 (02:26→11:39)
[2018-03-29] MEDS: LEVOTHYROXINE 88 MCG TAB PO SCH (06:15)
[2018-03-29] MEDS: SYMBICORT 160-4.5 MCG INHALER INHALATION SCH (06:17)
[2018-03-29] MEDS: PANTOPRAZOLE 40 MG/10 ML VIAL IVP SCH ×2 (08:28→21:43)
[2018-03-29] MEDS: amLODIPine 10 MG TAB PO SCH ×2 (08:28→21:43)
[2018-03-29] MEDS: METOPROLOL TARTRATE 50 MG TAB PO SCH ×2 (08:29→21:43)
[2018-03-29] MEDS: valACYclovir HCL 1,000 MG TABLET PO SCH (08:29)
[2018-03-29] MEDS: HEPARIN SODIUM,PORCINE 5,000 UNIT/ML 1 ML VIAL SQ SCH ×2 (08:46→21:43)
[2018-03-29] MEDS: LOSARTAN 50 MG TAB PO SCH (08:46)
[2018-03-29] MEDS: cycloSPORINE 0.05% OPHTH 0.4 ML DROPERETTE BOTH EYES SCH ×2 (08:47→21:43)
[2018-03-29] MEDS: FERROUS SULFATE 325 MG TAB PO SCH (08:47)
[2018-03-29] MEDS: CLOPIDOGREL 75 MG TAB PO SCH (08:47)
[2018-03-29] MEDS: ASCORBIC ACID 500 MG TAB PO SCH (08:48)
[2018-03-29] MEDS: CHOLECALCIFEROL 1,000 UNIT TAB PO SCH (08:51)
[2018-03-29] MEDS: DULoxetine HCL 60 MG CAPSULE.DR PO SCH ×2 (08:52→22:34)
[2018-03-29] MEDS: DAPTOmycin 500 MG in SODIUM CHLORIDE 0.9% 50 ML IVPB SCH (09:27)
[2018-03-29 09:29] LABS: Basophils % (A) 0 %; Eosinophils # (A) 0.2 k/uL (0-0.7); Eosinophils % (A) 2 %; HCT 32.1 % (34.0-46.0); HGB 10.8 gm/dL (11.4-16.0); Lymphocytes # (A) 2.5 k/uL (1.0-4.8); Lymphocytes % (A) 22 %; MCH 27.8 pg (25.0-35.0); MCHC 33.5 g/dL (31.0-37.0); Mean Platelet Volume 6.4; Monocytes # (A) 0.5 k/uL (0-1.0); Monocytes % (A) 5 %; Neutrophils # (A) 7.6 k/uL (1.3-7.7); Neutrophils % (A) 69 %; Platelet Count 486 k/uL (150-450); RBC 3.87 m/uL (3.80-5.40); RDW 12.7 % (11.5-15.5)
[2018-03-29 09:45] LABS: Anion Gap 12 mmol/L; Blood Urea Nitrogen 14 mg/dL (7-17); Calcium 9.6 mg/dL (8.4-10.2); Carbon Dioxide 25 mmol/L (22-30); Chloride 92 mmol/L (98-107); Glucose 105 mg/dL (74-99); Potassium 3.9 mmol/L (3.5-5.1); Sodium 129 mmol/L (137-145)
[2018-03-29] MEDS: MULTIVITAMINS, THERA 1 EACH TAB PO SCH (11:36)
[2018-03-29] MEDS: THIAMINE 100 MG TAB PO SCH (11:36)
[2018-03-29] MEDS: FOLIC ACID 1 MG TAB PO SCH (11:36)
--- NOTE | 2018-03-29 12:18 | ECHOF ---
Referral Reason:Endocarditis MEASUREMENTS -------- HEIGHT: 154.9 cm WEIGHT: 72.6 kg BP: 135/76 RVIDd: 2.4 cm (< 3.3) IVSd: 1.1 cm (0.6 - 1.1) LVIDd: 4.7 cm (3.9 - 5.3) LVPWd: 1.2 cm (0.6 - 1.1) IVSs: 1.6 cm LVIDs: 3.2 cm LVPWs: 1.4 cm LA Diam: 3.4 cm (2.7 - 3.8) LAESV Index (A-L): 20.50 ml/m Ao Diam: 2.9 cm (2.0 - 3.7) AV Cusp: 1.9 cm (1.5 - 2.6) MV EXCURSION: 17.701 mm (> 18.000) MV EF SLOPE: 59 mm/s (70 - 150) EPSS: 1.1 cm MV E Chin: 0.63 m/s MV DecT: 264 ms MV A Chin: 0.91 m/s MV E/A Ratio: 0.69 FINDINGS -------- Sinus rhythm. This was a technically adequate study. The left ventricular size is normal. There is borderline concentric left ventricular hypertrophy. Overall left ventricular systolic function is mildly impaired with, an EF between 45 - 50 %. The right ventricle is normal in size. Normal LA size by volume 22+/-6 ml/m2. The right atrium is normal in size. There is mild aortic valve sclerosis. The mitral valve leaflets are mildly thickened. Mild mitral annular calcification present. There is trace mitral regurgitation. The tricuspid valve appears structurally normal. The pulmonic valve was not well visualized. The aortic root size is normal. Normal inferior vena cava with normal inspiratory collapse consistent with estimated right atrial pre ssure of 5 mmHg. There is no pericardial effusion. CONCLUSIONS -------- 1. Sinus rhythm. 2. This was a technically adequate study. 3. The left ventricular size is normal. 4. There is borderline concentric left ventricular hypertrophy. 5. Overall left ventricular systolic function is mildly impaired with, an EF between 45 - 50 %. 6. The right ventricle is normal in size. 7. Normal LA size by volume 22+/-6 ml/m2. 8. The right atrium is normal in size. 9. There is mild aortic valve sclerosis. 10. The mitral valve leaflets are mildly thickened. 11. Mild mitral annular calcification present. 12. There is trace mitral regurgitation. 13. The tricuspid valve appears structurally normal. 14. The pulmonic valve was not well visualized. 15. The aortic root size is normal. 16. Normal inferior vena cava with normal inspiratory collapse consistent with estimated right atrial pressure of 5 mmHg. 17. There is no pericardial effusion. FIELD SERVICE TECHNICIAN POULTRY: Yolanda Nolasco RDCS
--- NOTE | 2018-03-29 13:08 | PN ---
PROGRESS NOTE DATE OF SERVICE: 03/29/2018 This is a 68-year-old woman who was admitted with tiredness and weakness, had features of acute urinary tract infection with sepsis and methicillin-resistant Staphylococcus aureus was also grown from the cultures. The patient also had pain. Also, Dr. Dyson is following the patient closely. A 2D echo with Doppler was ordered which showed ejection fraction 40%-45%. No other significant abnormalities. No chest pain or palpitation. PHYSICAL EXAM: Alert and oriented x2. Pulse 70, blood pressure 135/76, respirations 16, temperature 98.2, pulse ox 98% on room air. HEENT: Conjunctivae normal. Oral mucosa moist neck is no jugular venous distention. No lymph nodes cardiovascular S1 respirations bases a few scattered rhonchi and crackles. ABDOMEN: Soft, nontender. Pain from on the left anterior abdominal wall. NERVOUS SYSTEM: Higher functions as mentioned earlier. Moves all limbs. Mild diffuse weakness as mentioned earlier. SKIN: No ulcer, rash or bleeding. LAB STUDIES: WBC 10.11, hemoglobin is 10.8 sodium 139, potassium 3.9. Urine random is 10. ASSESSMENT: 1. Acute urinary tract infection with sepsis, present on admission. 2. Methicillin-resistive Staphylococcus aureus sepsis. 3. Chronic pain, recently inserted pain pump on the left abdominal wall. 4. Leukocytosis, possibly secondary to sepsis. 5. Hyponatremia. on gentle hydration. 6. Hypokalemia, improved. 7. Gait dysfunction. 8. Asthma. 9. History of chest pain. 10.History of cerebrovascular accident, transient ischemic attack. 11.History of fibromyalgia. 12.History of gastroesophageal reflux disease. 13.Hypertension. 14.Hyperlipidemia. 15.History of degenerative joint disease. 16.Hypothyroidism. 17.History cardiomyopathy. 18.Anxiety, depression, panic disorder. RECOMMENDATION: Recommend to continue current medication and symptomatic treatment with IV antibiotics. Patient is on daptomycin. I would recommend repeat cultures. Closely follow with Infectious Disease and Pain Management. Guarded prognosis because of multiple complex medical issues. Further recommendations to follow. MMODL / IJN: [id number] /
--- NOTE | 2018-03-29 16:28 | CDI ---
Last Revision, June 2017 Documentation Clarification Form Date: 03/30/2018 4:08:35 PM From: Kacie Wright RN, CCDS Admit Date: 03/26/2018 8:12:00 PM Patient Name: Priya Waterman Visit Number: [id number] Discharge Date: ATTENTION: The Clinical Documentation Specialists (CDI) and [facility] Coding Staff appreciate your assistance in clarifying documentation. Please respond to the clarification below the line at the bottom and electronically sign. The CDI & [facility] Coding staff will review the response and follow-up if needed. Please note: Queries are made part of the Legal Health Record. If you have any questions, please contact the author of this message via ITS. Theodore Belle MD Altered mental status with evidence of a diffuse encephalopathy secondary to sepsis was documented in your consultation on Patient history/risk factors: Chronic pain syndrome, Chronic back pain, Fibromyalgia, Hypertension, Chronic kidney disease, Hypertension, CVA, TIA, stage 3 renal failure Clinical Indicators: Present with altered mental status and confusion Labs: WBC 20.6, Sodium 129, lactic Acid 1.5 UA: Large Leukocyte Esterase, Moderate urine bacteria Chest X Ray: Negative CT Brain: Negative Treatment: Neurological Assessment per orders Monitor labs Daptomycin IV Levaquin IV In your professional opinion, please further clarify the diffuse encephalopathy if known. Encephalopathy (specify Type: Metabolic, Toxic, Other, and Underlying Medical Illness Other condition (please specify) Unable to determine Please continue to document in your progress notes and discharge summary in order to capture severity of illness and risk of mortality. Include clinical findings that support your diagnosis. MTDD
--- NOTE | 2018-03-29 18:11 | PN ---
PROGRESS NOTE Patient is seen for followup for hyponatremia. She was maintained on IV fluids. Her serum sodium had gone down to 128. Fluids were discontinued yesterday. Today, the sodium is up to 129. The patient denies any significant complaints. She was found to have MRSA bacteremia. EXAMINATION: This morning, blood pressure was 135/76, heart rate 80 per minute. Patient is afebrile. Examination shows no significant edema in lower extremities. The patient is fairly comfortable. LABS: Show sodium 129, potassium 3.9, chloride 92, BUN 14, serum creatinine 0.69, hemoglobin 10.8 g/dL. ASSESSMENT: 1. Hyponatremia euvolemic/hypervolemic, serum sodium worsened with saline and the sodium is up to 129 from 128 after discontinuation of fluids. Urine osmolality was 487. The patient will be continued off of IV fluids. She should be maintained on fluid restriction. 2. Urinary tract infection. Urine culture did not grow any organisms. 3. MRSA bacteremia, source possibly the pain pump. PLAN: Recommend ID evaluation. MMODL / IJN: [id number] /
[2018-03-29] MEDS: LEVOFLOXACIN 750MG-D5W PMX 750 MG in DEXTROSE/WATER 1 150ML.BAG IVPB SCH (21:42)
[2018-03-29] MEDS: CARBIDOPA-LEVODOPA 25-100 MG 1 EACH TAB PO SCH (21:43)
[2018-03-29] MEDS: MONTELUKAST 10 MG TAB PO SCH (21:43)
[2018-03-29] MEDS: ASPIRIN 81 MG PO SCH (21:43)
--- NOTE | 2018-03-29 22:56 | P.PN ---
Subjective Progress Note Date: 03/29/18 68-year-old female who has a extensive past medical history including a history of TIA, fibromyalgia, obesity treated by [facility] with adequate success, and severe back pain. She's undergone multiple procedures in the past for her back and several years ago had a spinal cord stimulator placed. She had modestly good control of her pain with this device but eventually broke and was no longer effective. Because of her severe and ongoing back pain she was evaluated and had a trial of a intrathecal pain pump. She had good results and consequently the pain pump was officially placed last month. She was having relatively good control of her pain that she started to feel very poorly. She had fevers and presented to a local hospital. There was concerns because she had fever she was infection of her pain pump was transferred to the facility where it was implanted. Those records are available for review. She was seen by infectious diseases and the implanting surgeon. Imaging studies reveal evidence of the fluid collection near the implant and aspiration was obtained which failed to reveal evidence of underlying infection. No cultures were noted be positive from the local hospital or the outside hospital when cultures were obtained. The patient or continue to feel worse over time it was progressive fatigue and malaise and fever she presented to our emergency center for further evaluation. Her neurologist could not be reached and the neurologist on-call has been brought in and pain management services have also been requested. Infectious diseases consultation was requested because of 101.3 fever and concerns to infection of her pump. At the time the consult is called there is evidence of a positive blood culture. 03/29/2018 patient continues to feel poorly. Still has fever fatigue and malaise. Objective - Vital Signs Vital signs: Vital Signs Temp 98.3 F 03/29/18 21:00 Pulse 90 03/29/18 21:00 Resp 16 03/29/18 21:00 BP 128/60 03/29/18 21:00 Pulse Ox 96 03/29/18 21:00 Intake & Output 03/29/18 03/29/18 03/30/18 06:59 18:59 06:59 Intake Total 1150 590 Balance 1150 590 Intake: IV 150 Levofloxacin 750Mg-D5w 150 Pmx 750 mg In Dextrose/ Water 1 150ml.bag @ 100 mls/hr IVPB Q24H [facility] Rx#: [id number] Intake, IV Titration 600 Amount Sodium Chloride 0.9% 1, 600 000 ml @ 50 mls/hr IV . Q20H [facility] Rx#:[id number] Oral 400 590 Other: Voiding Method Bedside Commode Bedside Commode # Voids 2 1 1 - Exam Pleasant 68-year-old woman who currently is modestly comfortable and relates her fever has improved. HEENT: Anicteric conjunctiva are pink and moist nasal mucosa grossly intact without significant lesions, there is no thrush. Neck: The neck is supple without significant lymphadenopathy or thyromegaly. Lungs: Good bilateral air entry without significant crackles or wheezing. There is no significant bronchial sounds. There is no egophony or dullness. Heart: Regular rate and rhythm with an audible S1-S2, no S3 no S4. There is no significant murmur click or rub, PMI was nondisplaced. Abdomen: Positive bowel sounds soft and nontender without palpable masses or organomegaly. There was no guarding or rebound. Extremities: The upper extremities have excellent pulses they are symmetric, no significant petechiae or telangiectasia. No splinter hemorrhages were noted. Lower extremities have trace bilateral lower extremity edema that is without change. Pulses are 2+ and symmetric Neuro: Awake alert oriented to person place and time. There are no acute new gross focal sensory motor deficits. The implant site for the epidural pain pump in the abdominal wall was intact without significant erythema. The posterior incision appears to be modestly well healed it has minimal erythema is not grossly fluctuant and there is no expressible purulence. The prior spinal cord stimulator is palpable above the left buttocks and is tender to manipulation but it is not fluctuant. The rest of skin is without rash or breakdown. - Labs CBC & Chem 7: 03/29/18 09:10 03/29/18 09:10 Labs: Abnormal Lab Results - Last 24 Hours (Table) 03/29/18 03/29/18 Range/Units 09:10 09:10 WBC 11.0 H (3.8-10.6) k/uL Hgb 10.8 L (11.4-16.0) gm/dL Hct 32.1 L (34.0-46.0) % Plt Count 486 H (150-450) k/uL Sodium 129 L (137-145) mmol/L Chloride 92 L (98-107) mmol/L Glucose 105 H (74-99) mg/dL Microbiology - Last 24 Hours (Table) 03/26/18 18:38 Blood Culture Gram Stain - Preliminary Blood Blood Culture - Final Methicillin resist S. aureus Laboratory Results WBC 11.0 k/uL (3.8-10.6) H 03/29/18 09:10 RBC 3.87 m/uL (3.80-5.40) 03/29/18 09:10 Hgb 10.8 gm/dL (11.4-16.0) L 03/29/18 09:10 Hct 32.1 % (34.0-46.0) L 03/29/18 09:10 MCV 83.0 fL (80.0-100.0) 03/29/18 09:10 MCH 27.8 pg (25.0-35.0) 03/29/18 09:10 MCHC 33.5 g/dL (31.0-37.0) 03/29/18 09:10 RDW 12.7 % (11.5-15.5) 03/29/18 09:10 Plt Count 486 k/uL (150-450) H 03/29/18 09:10 Neutrophils % 69 % 03/29/18 09:10 Lymphocytes % 22 % 03/29/18 09:10 Monocytes % 5 % 03/29/18 09:10 Eosinophils % 2 % 03/29/18 09:10 Basophils % 0 % 03/29/18 09:10 Neutrophils # 7.6 k/uL (1.3-7.7) 03/29/18 09:10 Lymphocytes # 2.5 k/uL (1.0-4.8) 03/29/18 09:10 Monocytes # 0.5 k/uL (0-1.0) 03/29/18 09:10 Eosinophils # 0.2 k/uL (0-0.7) 03/29/18 09:10 Basophils # 0.0 k/uL (0-0.2) 03/29/18 09:10 ESR 54 mm/hr (0-20) H 03/28/18 10:00 PT 11.0 sec (9.0-12.0) 03/26/18 17:56 INR 1.1 (<1.2) 03/26/18 17:56 Sodium 129 mmol/L (137-145) L 03/29/18 09:10 Potassium 3.9 mmol/L (3.5-5.1) 03/29/18 09:10 Chloride 92 mmol/L (98-107) L 03/29/18 09:10 Carbon Dioxide 25 mmol/L (22-30) 03/29/18 09:10 Anion Gap 12 mmol/L 03/29/18 09:10 BUN 14 mg/dL (7-17) 03/29/18 09:10 Creatinine 0.69 mg/dL (0.52-1.04) 03/29/18 09:10 Est GFR (CKD-EPI)AfAm >90 (>60 ml/min/1.73 sqM) 03/29/18 09:10 Est GFR (CKD-EPI)NonAf 89 (>60 ml/min/1.73 sqM) 03/29/18 09:10 Glucose 105 mg/dL (74-99) H 03/29/18 09:10 Plasma Lactic Acid Anjel 1.5 mmol/L (0.7-2.0) 03/26/18 18:38 Calcium 9.6 mg/dL (8.4-10.2) 03/29/18 09:10 Total Bilirubin 0.7 mg/dL (0.2-1.3) 03/26/18 17:56 AST 24 U/L (14-36) 03/26/18 17:56 ALT 30 U/L (9-52) 03/26/18 17:56 Alkaline Phosphatase 83 U/L (38-126) 03/26/18 17:56 Total Creatine Kinase 135 U/L (30-135) 03/26/18 17:56 CK-MB (CK-2) 3.4 ng/mL (0.0-2.4) H 03/26/18 17:56 CK-MB (CK-2) Rel Index 2.5 03/26/18 17:56 Troponin I <0.012 ng/mL (0.000-0.034) 03/26/18 17:56 Total Protein 7.7 g/dL (6.3-8.2) 03/26/18 17:56 Albumin 4.4 g/dL (3.5-5.0) 03/26/18 17:56 Urine Color Yellow 03/26/18 19:18 Urine Appearance Cloudy (Clear) H 03/26/18 19:18 Urine pH 6.0 (5.0-8.0) 03/26/18 19:18 Ur Specific Ericson 1.017 (1.001-1.035) 03/26/18 19:18 Urine Protein 2+ (Negative) H 03/26/18 19:18 Urine Glucose (UA) Negative (Negative) 03/26/18 19:18 Urine Ketones Trace (Negative) H 03/26/18 19:18 Urine Blood Small (Negative) H 03/26/18 19:18 Urine Nitrite Negative (Negative) 03/26/18 19:18 Urine Bilirubin Negative (Negative) 03/26/18 19:18 Urine Urobilinogen 2.0 mg/dL (<2.0) 03/26/18 19:18 Ur Leukocyte Esterase Large (Negative) H 03/26/18 19:18 Urine RBC 54 /hpf (0-5) H 03/26/18 19:18 Urine WBC 147 /hpf (0-5) H 03/26/18 19:18 Urine WBC Clumps Few /hpf (None) H 03/26/18 19:18 Ur Squamous Epith Cells 1 /hpf (0-4) 03/26/18 19:18 Urine Bacteria Moderate /hpf (None) H 03/26/18 19:18 Hyaline Casts 8 /lpf (0-2) H 03/26/18 19:18 Urine Mucus Many /hpf (None) H 03/26/18 19:18 Urine Yeast (Budding) Moderate /hpf (None) H 03/26/18 19:18 Urine Osmolality 487 mosm/kg (50-1400) 03/27/18 10:50 Ur Random Sodium 10 mmol/L 03/27/18 10:50 Microbiology 03/26/18 18:38 Blood Blood Culture Gram Stain - Preliminary 03/26/18 18:38 Blood Blood Culture - Final Methicillin resist S. aureus 03/26/18 10:50 Urine,Voided Urine Culture - Final 03/26/18 18:38 Blood Blood Culture - Final Assessment and Plan (1) Fever Current Visit: Yes Status: Acute Code(s): R50.9 - FEVER, UNSPECIFIED SNOMED Code(s): 142237932 (2) Gram-positive cocci bacteremia Narrative/Plan: 68-year-old female presents to hospital with weakness and feeling poorly and having fever at home. She is a very complex past medical history regarding her chronic back pain with history of a prior spinal cord stimulator that had failed. In February she had a epidural pain pump applied the trial went well and then at follow-up, pump was applied she's developed good control of her pain. Now presents feeling poorly and has been noticed that she has fever, leukocytosis and with evidence of possible cultures the infectious diseases consultation was requested. The the laboratory is now reporting the Gram- positive cocci. Outside data is reviewed which shows the imaging studies with a fluid collection around the pain pump this was aspirated the outside hospital and cultures were negative. Blood cultures at the [facility] in the outside hospital were also negative. She's now developed what appears to be staph aureus bacteremia and with her many ALLERGIES daptomycin is initiated. Follow-up cultures are requested. The patient's neurologist Dr. Dyson has been consulted and pain management has also been requested. Fortunately at this time she has modestly comfortable. She was having some difficulty with urgency of urination and stool yesterday. She went to use the bathroom but the roommate was in the bathroom in counseling she walked in the hallway looking for bathroom suffering a fall. Computed tomography scan of her head was performed without acute bleed or other abnormality. Fortunately not feeling poorly at this time. Depending on the findings she made need transfer to the tertiary center for evaluation and removal of the pain pump, it is still the most likely etiology of the current staph aureus bacteremia. Echocardiogram has been requested also. 03/29/2018 patient still feels poorly but better than yesterday. Continues to have pain but is more mobile. She is able to eat some solids without significant nausea or emesis. Neurological evaluation is still in process, and hopefully will help direct the next best course of therapy regarding the possibility of infected of the pain pump with the MRSA bacteremia being noted. Current Visit: Yes Status: Acute Code(s): R78.81 - BACTEREMIA SNOMED Code( s): 938557354636
[2018-03-30] MEDS: LEVOTHYROXINE 88 MCG TAB PO SCH (06:26)
[2018-03-30] MEDS: METOPROLOL TARTRATE 50 MG TAB PO SCH ×2 (08:36→20:44)
[2018-03-30] MEDS: amLODIPine 10 MG TAB PO SCH ×2 (08:36→20:44)
[2018-03-30] MEDS: CHOLECALCIFEROL 1,000 UNIT TAB PO SCH (08:36)
[2018-03-30] MEDS: valACYclovir HCL 1,000 MG TABLET PO SCH (08:36)
[2018-03-30] MEDS: HEPARIN SODIUM,PORCINE 5,000 UNIT/ML 1 ML VIAL SQ SCH ×2 (08:37→20:45)
[2018-03-30] MEDS: ASCORBIC ACID 500 MG TAB PO SCH (08:37)
[2018-03-30] MEDS: PANTOPRAZOLE 40 MG/10 ML VIAL IVP SCH ×2 (08:37→20:46)
[2018-03-30] MEDS: cycloSPORINE 0.05% OPHTH 0.4 ML DROPERETTE BOTH EYES SCH ×2 (08:37→20:45)
[2018-03-30] MEDS: CLOPIDOGREL 75 MG TAB PO SCH (08:37)
[2018-03-30] MEDS: LOSARTAN 50 MG TAB PO SCH (08:37)
[2018-03-30] MEDS: FERROUS SULFATE 325 MG TAB PO SCH (08:37)
[2018-03-30] MEDS: DULoxetine HCL 60 MG CAPSULE.DR PO SCH ×2 (08:37→20:44)
[2018-03-30 09:09] LABS: Basophils % (A) 0 %; Eosinophils # (A) 0.3 k/uL (0-0.7); Eosinophils % (A) 3 %; HCT 31.6 % (34.0-46.0); HGB 10.5 gm/dL (11.4-16.0); Lymphocytes # (A) 2.4 k/uL (1.0-4.8); Lymphocytes % (A) 27 %; MCH 28.1 pg (25.0-35.0); MCHC 33.3 g/dL (31.0-37.0); MCV 84.4 fL (80.0-100.0); Mean Platelet Volume 6.2; Monocytes # (A) 0.4 k/uL (0-1.0); Monocytes % (A) 4 %; Neutrophils # (A) 5.8 k/uL (1.3-7.7); Neutrophils % (A) 65 %; Platelet Count 455 k/uL (150-450); RBC 3.74 m/uL (3.80-5.40); RDW 12.8 % (11.5-15.5); WBC 8.9 k/uL (3.8-10.6)
[2018-03-30 09:18] LABS: Calcium 9.4 mg/dL (8.4-10.2); Potassium 4.1 mmol/L (3.5-5.1)
[2018-03-30] MEDS: THIAMINE 100 MG TAB PO SCH (12:55)
[2018-03-30] MEDS: MULTIVITAMINS, THERA 1 EACH TAB PO SCH (12:55)
[2018-03-30] MEDS: DAPTOmycin 500 MG in SODIUM CHLORIDE 0.9% 50 ML IVPB SCH (12:55)
[2018-03-30] MEDS: FOLIC ACID 1 MG TAB PO SCH (12:55)
--- NOTE | 2018-03-30 15:54 | PN ---
PROGRESS NOTE DATE OF SERVICE: 03/30/2018. This 68-year-old woman who was admitted with acute UTI and sepsis, also had MRSA grown from the blood. The patient is also being evaluated by Infectious Disease and as well as Nephrology and Neurology also. The patient had a pain pump also on the left anterior abdominal wall. No chest pain. No palpitations. No fever. PHYSICAL EXAM: Alert and oriented x3. Pulse 80, blood pressure 120/63, respiratory 14, temperature 97.2, pulse ox 100 percent on room air. HEENT: Conjunctivae normal. Oral mucosa moist. NECK: No jugular venous distention. No carotid bruit. No lymph node enlargement. CARDIOVASCULAR: S1, S2. RESPIRATORY: Breath sounds diminished in the bases. No rhonchi, no crackles. ABDOMEN: Soft, nontender. No mass palpable. LEGS: No edema. NERVOUS SYSTEM: Diffusely weak. LABS: WBC 8, hemoglobin is 10.5. The most recent cultures are negative. ASSESSMENT: 1. Acute urinary tract infection with sepsis, present on admission. 2. MRSA sepsis. 3. Chronic pain, recently inserted the pain pump on the left abdominal wall. 4. Leukocytosis possibly secondary to sepsis. 5. Hyponatremia on gentle hydration. 6. Hypokalemia, improved. 7. Gait dysfunction. 8. Asthma. 9. Congestive heart failure. 10.Cerebrovascular accident, transient ischemic attack. 11.History of fibromyalgia. 12.Gastroesophageal reflux disease. 13.Hypertension. 14.Hyperlipidemia. 15.History of degenerative joint disease. 16.History of hypothyroidism. 17.History of cardiomyopathy. 18.Anxiety, depression, panic disorder. RECOMMENDATIONS AND DISCUSSION: I recommend to continue current management and symptomatic treatment. Otherwise at this time I recommend to continue broad-spectrum IV antibiotics. Follow the cultures. Guarded prognosis. Further recommendations to follow. MMODL / IJN: [id number] /
--- NOTE | 2018-03-30 16:07 | CDI ---
Last Revision, June 2017 Documentation Clarification Form Date: 03/30/2018 3:19:51 PM From: Kacie Wright RN, CCDS Admit Date: 03/26/2018 8:12:00 PM Patient Name: Priya Waterman Visit Number: [id number] Discharge Date: ATTENTION: The Clinical Documentation Specialists (CDI) and [facility] Coding Staff appreciate your assistance in clarifying documentation. Please respond to the clarification below the line at the bottom and electronically sign. The CDI & [facility] Coding staff will review the response and follow-up if needed. Please note: Queries are made part of the Legal Health Record. If you have any questions, please contact the author of this message via ITS. Samuel Reddy MD 03/28/18 ID: Dr. Krishna has documented in ongoing progress notes consult requested because of a fever 101.3 and concerns to infection of her pain pump with evidence of a positive blood cultures. She may need to be transfer to the tertiary center for evaluation and removal of the pain pump, it is still the most likely etiology of the current staph aureus bacteremia. History/Risk Factors: Asthma, Hypertension CKD stage 3, Severe back pain, Epidural pain pump applied in February/2018, (abdominal wall) Clinical Indicators: Present with complaints of progressive weakness and fever. WBC/Left Shift: 20.6 Neutrophils 17.7, UA Large Leukocyte Esterase, Moderate urine bacteria, Urine Culture - No growth Lactic acid: 1.5 Blood cultures: Methicillin resist S. aureus, Vitals signs on admission: 140/77 95 16 97 % RA Treatment: ID Consult: Yes (see above) Antibiotics: Daptomycin IV, Levadquin IV Monitor Labs, Vital signs In your professional opinion, please clarify if these findings signify one of the following conditions, if known: Sepsis related to pain pump Sepsis not related to pain pump Other, please specify Unable to determine Please continue to document in your progress notes and discharge summary in order to capture severity of illness and risk of mortality. Include clinical findings that support your diagnosis. Unable to determine MTDD
[2018-03-30] MEDS: ACETAMINOPHEN TAB 325 MG TAB PO PRN (17:38)
[2018-03-30] MEDS: LEVOFLOXACIN 750MG-D5W PMX 750 MG in DEXTROSE/WATER 1 150ML.BAG IVPB SCH (20:44)
[2018-03-30] MEDS: CARBIDOPA-LEVODOPA 25-100 MG 1 EACH TAB PO SCH (20:44)
[2018-03-30] MEDS: SYMBICORT 160-4.5 MCG INHALER INHALATION SCH (20:45)
[2018-03-30] MEDS: ASPIRIN 81 MG PO SCH (20:45)
[2018-03-30] MEDS: MONTELUKAST 10 MG TAB PO SCH (20:45)
--- NOTE | 2018-03-30 21:53 | PN ---
PROGRESS NOTE Patient is seen for followup for hyponatremia. The serum sodium level had worsened with normal saline and this was then discontinued and the serum sodium is up to 131 now. Patient was found to have MRSA bacteremia. She has had a new pain pump placed. The patient is being followed by ID. She got 1 dose of vancomycin and currently she is maintained. PHYSICAL EXAMINATION: On examination today, blood pressure was 110/59, heart rate 96 per minute. Patient is afebrile. HEART: S1, S2. LUNGS: Bilateral breath sounds are heard. Abdomen is soft, nontender. The site of the pain pump is nontender. Incision appears to be intact. STREAMING MEDIA SPECIALIST exam is grossly intact. There is no edema noted in lower extremities. LAB: Show sodium 131, potassium 4.1, hemoglobin 10.5 g/dL, serum creatinine 0.78. ASSESSMENT: 1. Hyponatremia, most likely associated with some degree of SIADH given the elevated urine osmolality. Continue with fluid restriction. Continue off of IV fluids. 2. MRSA bacteremia, most likely related to recent pain pump placement, being followed by ID maintained on daptomycin. Not clear if the pump needs to be removed. Repeat blood cultures remain negative thus far from yesterday. 3. Recent urinary tract infection. Current urine culture did not grow any organisms. PLAN: Continue with fluid restriction. Repeat labs in a.m. Continue antibiotics as per ID. MMODL / IJN: [id number] /
[2018-03-31] MEDS: SYMBICORT 160-4.5 MCG INHALER INHALATION SCH ×3 (02:53→12:32)
[2018-03-31] MEDS: LEVOTHYROXINE 88 MCG TAB PO SCH (06:18)
[2018-03-31 08:23] LABS: Basophils % (A) 0 %; Eosinophils # (A) 0.2 k/uL (0-0.7); Eosinophils % (A) 2 %; HCT 30.1 % (34.0-46.0); Lymphocytes # (A) 2.1 k/uL (1.0-4.8); Lymphocytes % (A) 22 %; MCHC 33.1 g/dL (31.0-37.0); MCV 84.5 fL (80.0-100.0); Mean Platelet Volume 6.2; Monocytes # (A) 0.5 k/uL (0-1.0); Monocytes % (A) 5 %; Neutrophils # (A) 6.5 k/uL (1.3-7.7); Neutrophils % (A) 69 %; Platelet Count 416 k/uL (150-450); RBC 3.56 m/uL (3.80-5.40); WBC 9.4 k/uL (3.8-10.6)
[2018-03-31 08:41] LABS: Calcium 9.3 mg/dL (8.4-10.2)
[2018-03-31] MEDS: CHOLECALCIFEROL 1,000 UNIT TAB PO SCH (08:56)
[2018-03-31] MEDS: PANTOPRAZOLE 40 MG/10 ML VIAL IVP SCH ×2 (08:56→21:29)
[2018-03-31] MEDS: ASCORBIC ACID 500 MG TAB PO SCH (08:56)
[2018-03-31] MEDS: amLODIPine 10 MG TAB PO SCH ×2 (08:57→21:28)
[2018-03-31] MEDS: METOPROLOL TARTRATE 50 MG TAB PO SCH ×2 (08:57→21:28)
[2018-03-31] MEDS: valACYclovir HCL 1,000 MG TABLET PO SCH (08:57)
[2018-03-31] MEDS: CLOPIDOGREL 75 MG TAB PO SCH (08:58)
[2018-03-31] MEDS: FERROUS SULFATE 325 MG TAB PO SCH (08:58)
[2018-03-31] MEDS: DULoxetine HCL 60 MG CAPSULE.DR PO SCH ×2 (08:58→21:28)
[2018-03-31] MEDS: HEPARIN SODIUM,PORCINE 5,000 UNIT/ML 1 ML VIAL SQ SCH ×2 (08:58→21:29)
[2018-03-31] MEDS: cycloSPORINE 0.05% OPHTH 0.4 ML DROPERETTE BOTH EYES SCH ×2 (08:58→21:29)
[2018-03-31] MEDS: LOSARTAN 50 MG TAB PO SCH (08:58)
[2018-03-31] MEDS: DAPTOmycin 500 MG in SODIUM CHLORIDE 0.9% 50 ML IVPB SCH (08:59)
[2018-03-31] MEDS: MULTIVITAMINS, THERA 1 EACH TAB PO SCH (12:34)
[2018-03-31] MEDS: THIAMINE 100 MG TAB PO SCH (12:34)
[2018-03-31] MEDS: FOLIC ACID 1 MG TAB PO SCH (12:34)
--- NOTE | 2018-03-31 17:19 | PN ---
PROGRESS NOTE DATE OF SERVICE: 03/31/2018. INTERVAL HISTORY: This 68-year-old woman who was admitted with UTI and sepsis also had a MRSA sepsis from the blood. Patient being closely monitored. No chest pain. No palpitations. The patient also had pain pump also. Multiple consultants are following the patient including Infectious Disease. No chest pain. No palpitations. No fever. PHYSICAL EXAM: Alert and oriented x3. Pulse 60, blood pressure 130/60, respiration 16, temperature 98.2, pulse ox 98% on room air. HEENT: Conjunctivae normal. Oral mucosa moist. Neck is no jugular venous distention. No carotid bruit. No lymph node enlargement. CARDIOVASCULAR: S1, S2. RESPIRATORY: Breath sounds diminished in the bases. No rhonchi. No crackles. ABDOMEN: Soft, nontender. No mass palpable. Left lower quadrant pain pump present. NERVOUS SYSTEM: No focal deficits. LABS: WBC 9.2, hemoglobin is 10, sodium 131. ASSESSMENT: 1. Acute urinary tract infection with sepsis, present on admission. 2. MRSA sepsis. 3. Chronic pain recently inserted pain from on the left abdominal wall. 4. Leukocytosis secondary to sepsis. 5. Hyponatremia on gentle hydration. 6. Hypokalemia improved. 7. Gait dysfunction. 8. Asthma. 9. History of congestive heart failure. 10.Cerebrovascular accident, transient ischemic attack. 11.History of fibromyalgia. 12.Gastroesophageal reflux disease. 13.Hypertension. 14.Hyperlipidemia. 15.History of degenerative joint disease. 16.Hypothyroidism. 17.History of cardiomyopathy. 18.History anxiety, depression, panic disorder. RECOMMENDATIONS AND DISCUSSION: I recommend to continue current management, monitoring and symptomatic treatment. At this time I recommend continue with antibiotics. Follow closely with multiple consultants. Prognosis guarded. Further recommendations to follow. MMODL / IJN: [id number] /
[2018-03-31] MEDS: ASPIRIN 81 MG PO SCH (21:28)
[2018-03-31] MEDS: CARBIDOPA-LEVODOPA 25-100 MG 1 EACH TAB PO SCH (21:29)
[2018-03-31] MEDS: MONTELUKAST 10 MG TAB PO SCH (21:29)
[2018-04-01] MEDS: LEVOTHYROXINE 88 MCG TAB PO SCH (05:35)
[2018-04-01] MEDS: ACETAMINOPHEN TAB 325 MG TAB PO PRN (06:26)
[2018-04-01] MEDS: SYMBICORT 160-4.5 MCG INHALER INHALATION SCH ×2 (07:25→17:14)
[2018-04-01 08:49] LABS: Basophils % (A) 0 %; Eosinophils # (A) 0.2 k/uL (0-0.7); Eosinophils % (A) 2 %; HCT 30.1 % (34.0-46.0); HGB 9.9 gm/dL (11.4-16.0); Lymphocytes # (A) 2.2 k/uL (1.0-4.8); Lymphocytes % (A) 24 %; MCH 27.8 pg (25.0-35.0); MCHC 32.9 g/dL (31.0-37.0); MCV 84.3 fL (80.0-100.0); Mean Platelet Volume 6.4; Monocytes # (A) 0.5 k/uL (0-1.0); Monocytes % (A) 5 %; Neutrophils # (A) 5.9 k/uL (1.3-7.7); Neutrophils % (A) 67 %; Platelet Count 403 k/uL (150-450); RBC 3.58 m/uL (3.80-5.40); WBC 8.9 k/uL (3.8-10.6)
[2018-04-01 09:07] LABS: Anion Gap 9 mmol/L; Blood Urea Nitrogen 15 mg/dL (7-17); Calcium 9.4 mg/dL (8.4-10.2); Carbon Dioxide 27 mmol/L (22-30); Chloride 94 mmol/L (98-107); Glucose 100 mg/dL (74-99); Potassium 4.1 mmol/L (3.5-5.1); Sodium 130 mmol/L (137-145)
[2018-04-01] MEDS: CHOLECALCIFEROL 1,000 UNIT TAB PO SCH (09:33)
[2018-04-01] MEDS: CLOPIDOGREL 75 MG TAB PO SCH (09:34)
[2018-04-01] MEDS: THIAMINE 100 MG TAB PO SCH (09:34)
[2018-04-01] MEDS: METOPROLOL TARTRATE 50 MG TAB PO SCH ×2 (09:34→21:08)
[2018-04-01] MEDS: MULTIVITAMINS, THERA 1 EACH TAB PO SCH (09:34)
[2018-04-01] MEDS: ASCORBIC ACID 500 MG TAB PO SCH (09:35)
[2018-04-01] MEDS: amLODIPine 10 MG TAB PO SCH ×2 (09:35→21:41)
[2018-04-01] MEDS: cycloSPORINE 0.05% OPHTH 0.4 ML DROPERETTE BOTH EYES SCH ×2 (09:35→21:11)
[2018-04-01] MEDS: FERROUS SULFATE 325 MG TAB PO SCH (09:35)
[2018-04-01] MEDS: HEPARIN SODIUM,PORCINE 5,000 UNIT/ML 1 ML VIAL SQ SCH ×2 (09:36→21:09)
[2018-04-01] MEDS: valACYclovir HCL 1,000 MG TABLET PO SCH (09:36)
[2018-04-01] MEDS: LOSARTAN 50 MG TAB PO SCH (09:36)
[2018-04-01] MEDS: DULoxetine HCL 60 MG CAPSULE.DR PO SCH ×2 (09:36→21:08)
[2018-04-01] MEDS: PANTOPRAZOLE 40 MG/10 ML VIAL IVP SCH ×2 (09:36→21:10)
[2018-04-01] MEDS: DAPTOmycin 500 MG in SODIUM CHLORIDE 0.9% 50 ML IVPB SCH (09:37)
[2018-04-01] MEDS: FOLIC ACID 1 MG TAB PO SCH (11:43)
[2018-04-01] MEDS ORDERED: LEVOFLOXACIN 750MG-D5W PMX 750 MG in DEXTROSE/WATER 1 150ML.BAG IVPB SCH (12:00)
[2018-04-01] MEDS ORDERED: FUROSEMIDE 20 MG TAB PO STA (14:53)
--- NOTE | 2018-04-01 16:53 | PN ---
PROGRESS NOTE The patient is seen for followup for hyponatremia. Her sodium is staying about 130-131 mEq/L. Currently patient's diet has been advanced and she is not drinking as much fluids. She was admitted with MRSA bacteremia. Repeat blood cultures have all been negative. Patient has had a new pain pump prior to this admission. PHYSICAL EXAMINATION: On examination today, blood pressure is 126/61, heart rate 79 per minute. She is afebrile. Examination of the heart: S1, S2. Examination of the lungs: Bilateral breath sounds are heard. Abdomen is soft, nontender. Exam of lower extremities shows no evidence of edema. 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 LABS: Show sodium 130, potassium 4.1, BUN 15, serum creatinine 0.75, hemoglobin 9.9 g/dL. ASSESSMENT: 1. Euvolemic hyponatremia, currently stable. Serum sodium at 130 mg/L. Continue off of IV fluids. Patient is advised to decrease her oral fluid. She will continue with fluid restriction. Will give her a small dose of Lasix today at 20 mg p.o. We will repeat labs in a.m. 2. MRSA bacteremia associated with recent pain pump placement. The site looks fine with no evidence of induration or erythema. The patient is being followed by ID. She is maintained on daptomycin. Repeat blood cultures have been negative. PLAN: P.o. Lasix x1. Repeat labs in a.m. Continue with fluid restriction and avoid IV fluids. MMODL / KALN: [id number] /
[2018-04-01] MEDS: ASPIRIN 81 MG PO SCH (21:08)
[2018-04-01] MEDS: MONTELUKAST 10 MG TAB PO SCH (21:09)
[2018-04-01] MEDS: CARBIDOPA-LEVODOPA 25-100 MG 1 EACH TAB PO SCH (21:11)
--- NOTE | 2018-04-01 23:35 | P.PN ---
Subjective Progress Note Date: 04/01/18 68-year-old female who has a extensive past medical history including a history of TIA, fibromyalgia, obesity treated by [facility] with adequate success, and severe back pain. She's undergone multiple procedures in the past for her back and several years ago had a spinal cord stimulator placed. She had modestly good control of her pain with this device but eventually broke and was no longer effective. Because of her severe and ongoing back pain she was evaluated and had a trial of a intrathecal pain pump. She had good results and consequently the pain pump was officially placed last month. She was having relatively good control of her pain that she started to feel very poorly. She had fevers and presented to a local hospital. There was concerns because she had fever she was infection of her pain pump was transferred to the facility where it was implanted. Those records are available for review. She was seen by infectious diseases and the implanting surgeon. Imaging studies reveal evidence of the fluid collection near the implant and aspiration was obtained which failed to reveal evidence of underlying infection. No cultures were noted be positive from the local hospital or the outside hospital when cultures were obtained. The patient or continue to feel worse over time it was progressive fatigue and malaise and fever she presented to our emergency center for further evaluation. Her neurologist could not be reached and the neurologist on-call has been brought in and pain management services have also been requested. Infectious diseases consultation was requested because of 101.3 fever and concerns to infection of her pump. At the time the consult is called there is evidence of a positive blood culture. 03/29/2018 patient continues to feel poorly. Still has fever fatigue and malaise. 04/01/2018 fever has improved some improvement of overall status. Neurologist is out of town but opportunity to speak with him has occurred Objective - Vital Signs Vital signs: Vital Signs Temp 98.2 F 04/01/18 19:53 Pulse 88 04/01/18 20:30 Resp 19 04/01/18 19:53 BP 122/68 04/01/18 19:53 Pulse Ox 99 04/01/18 15:00 Intake & Output 04/01/18 04/01/18 04/02/18 06:59 18:59 06:59 Intake Total 200 1050 Output Total 1 Balance 199 1050 Weight 72.575 kg Intake: Intake, IV Titration 250 Amount DAPTOmycin 500 mg In 100 Sodium Chloride 0.9% 50 ml @ 100 mls/hr IVPB Q24H [facility] Rx#:[id number] Levofloxacin 750Mg-D5w 150 Pmx 750 mg In Dextrose/ Water 1 150ml.bag @ 100 mls/hr IVPB Q24H [facility] Rx#: [id number] Oral 200 800 Output: Urine 1 Other: Voiding Method Toilet Toilet # Voids 1 - Exam Pleasant 68-year-old woman who currently is modestly comfortable and relates her fever has improved. HEENT: Anicteric conjunctiva are pink and moist nasal mucosa grossly intact without significant lesions, there is no thrush. Neck: The neck is supple without significant lymphadenopathy or thyromegaly. Lungs: Good bilateral air entry without significant crackles or wheezing. There is no significant bronchial sounds. There is no egophony or dullness. Heart: Regular rate and rhythm with an audible S1-S2, no S3 no S4. There is no significant murmur click or rub, PMI was nondisplaced. Abdomen: Positive bowel sounds soft and nontender without palpable masses or organomegaly. There was no guarding or rebound. Extremities: The upper extremities have excellent pulses they are symmetric, no significant petechiae or telangiectasia. No splinter hemorrhages were noted. Lower extremities have trace bilateral lower extremity edema that is without change. Pulses are 2+ and symmetric Neuro: Awake alert oriented to person place and time. There are no acute new gross focal sensory motor deficits. The implant site for the epidural pain pump in the abdominal wall was intact without significant erythema. The posterior incision appears to be modestly well healed it has minimal erythema is not grossly fluctuant and there is no expressible purulence. The prior spinal cord stimulator is palpable above the left buttocks and is tender to manipulation but it is not fluctuant. The rest of skin is without rash or breakdown. - Labs CBC & Chem 7: 04/01/18 08:03 04/01/18 08:03 Labs: Abnormal Lab Results - Last 24 Hours (Table) 04/01/18 04/01/18 Range/Units 08: 08:03 RBC 3.58 L (3.80-5.40) m/uL Hgb 9.9 L (11.4-16.0) gm/dL Hct 30.1 L (34.0-46.0) % Sodium 130 L (137-145) mmol/L Chloride 94 L (98-107) mmol/L Glucose 100 H (74-99) mg/dL Microbiology - Last 24 Hours (Table) 03/29/18 09:34 Blood Culture - Preliminary Blood No Growth after 72 hours 03/29/18 09:10 Blood Culture - Preliminary Blood No Growth after 72 hours Laboratory Results WBC 8.9 k/uL (3.8-10.6) 04/01/18 08:03 RBC 3.58 m/uL (3.80-5.40) L 04/01/18 08:03 Hgb 9.9 gm/dL (11.4-16.0) L 04/01/18 08:03 Hct 30.1 % (34.0-46.0) L 04/01/18 08:03 MCV 84.3 fL (80.0-100.0) 04/01/18 08:03 MCH 27.8 pg (25.0-35.0) 04/01/18 08:03 MCHC 32.9 g/dL (31.0-37.0) 04/01/18 08:03 RDW 13.0 % (11.5-15.5) 04/01/18 08:03 Plt Count 403 k/uL (150-450) 04/01/18 08:03 Neutrophils % 67 % 04/01/18 08:03 Lymphocytes % 24 % 04/01/18 08:03 Monocytes % 5 % 04/01/18 08:03 Eosinophils % 2 % 04/01/18 08:03 Basophils % 0 % 04/01/18 08:03 Neutrophils # 5.9 k/uL (1.3-7.7) 04/01/18 08:03 Lymphocytes # 2.2 k/uL (1.0-4.8) 04/01/18 08:03 Monocytes # 0.5 k/uL (0-1.0) 04/01/18 08:03 Eosinophils # 0.2 k/uL (0-0.7) 04/01/18 08:03 Basophils # 0.0 k/uL (0-0.2) 04/01/18 08:03 ESR 54 mm/hr (0-20) H 03/28/18 10:00 PT 11.0 sec (9.0-12.0) 03/26/18 17:56 INR 1.1 (<1.2) 03/26/18 17:56 Sodium 130 mmol/L (137-145) L 04/01/18 08:03 Potassium 4.1 mmol/L (3.5-5.1) 04/01/18 08:03 Chloride 94 mmol/L (98-107) L 04/01/18 08:03 Carbon Dioxide 27 mmol/L (22-30) 04/01/18 08:03 Anion Gap 9 mmol/L 04/01/18 08:03 BUN 15 mg/dL (7-17) 04/01/18 08:03 Creatinine 0.75 mg/dL (0.52-1.04) 04/01/18 08:03 Est GFR (CKD-EPI)AfAm >90 (>60 ml/min/1.73 sqM) 04/01/18 08:03 Est GFR (CKD-EPI)NonAf 81 (>60 ml/min/1.73 sqM) 04/01/18 08:03 Glucose 100 mg/dL (74-99) H 04/01/18 08:03 Plasma Lactic Acid Anjel 1.5 mmol/L (0.7-2.0) 03/26/18 18:38 Calcium 9.4 mg/dL (8.4-10.2) 04/01/18 08:03 Total Bilirubin 0.7 mg/dL (0.2-1.3) 03/26/18 17:56 AST 24 U/L (14-36) 03/26/18 17:56 ALT 30 U/L (9-52) 03/26/18 17:56 Alkaline Phosphatase 83 U/L (38-126) 03/26/18 17:56 Total Creatine Kinase 135 U/L (30-135) 03/26/18 17:56 CK-MB (CK-2) 3.4 ng/mL (0.0-2.4) H 03/26/18 17:56 CK-MB (CK-2) Rel Index 2.5 03/26/18 17:56 Troponin I <0.012 ng/mL (0.000-0.034) 03/26/18 17:56 Total Protein 7.7 g/dL (6.3-8.2) 03/26/18 17:56 Albumin 4.4 g/dL (3.5-5.0) 03/26/18 17:56 Urine Color Yellow 03/26/18 19:18 Urine Appearance Cloudy (Clear) H 03/26/18 19:18 Urine pH 6.0 (5.0-8.0) 03/26/18 19:18 Ur Specific [place] 1.017 (1.001-1.035) 03/26/18 19:18 Urine Protein 2+ (Negative) H 03/26/18 19:18 Urine Glucose (UA) Negative (Negative) 03/26/18 19:18 Urine Ketones Trace (Negative) H 03/26/18 19:18 Urine Blood Small (Negative) H 03/26/18 19:18 Urine Nitrite Negative (Negative) 03/26/18 19:18 Urine Bilirubin Negative (Negative) 03/26/18 19:18 Urine Urobilinogen 2.0 mg/dL (<2.0) 03/26/18 19:18 Ur Leukocyte Esterase Large (Negative) H 03/26/18 19:18 Urine RBC 54 /hpf (0-5) H 03/26/18 19:18 Urine WBC 147 /hpf (0-5) H 03/26/18 19:18 Urine WBC Clumps Few /hpf (None) H 03/26/18 19:18 Ur Squamous Epith Cells 1 /hpf (0-4) 03/26/18 19:18 Urine Bacteria Moderate /hpf (None) H 03/26/18 19:18 Hyaline Casts 8 /lpf (0-2) H 03/26/18 19:18 Urine Mucus Many /hpf (None) H 03/26/18 19:18 Urine Yeast (Budding) Moderate /hpf (None) H 03/26/18 19:18 Urine Osmolality 487 mosm/kg (50-1400) 03/27/18 10:50 Ur Random Sodium 10 mmol/L 03/27/18 10:50 Microbiology 03/29/18 09:34 Blood Blood Culture - Preliminary No Growth after 72 hours 03/29/18 09:10 Blood Blood Culture - Preliminary No Growth after 72 hours 03/26/18 18:38 Blood Blood Culture Gram Stain - Preliminary 03/26/18 18:38 Blood Blood Culture - Final Methicillin resist S. aureus 03/26/18 10:50 Urine,Voided Urine Culture - Final 03/26/18 18:38 Blood Blood Culture - Final Assessment and Plan (1) Fever Current Visit: Yes Status: Acute Code(s): R50.9 - FEVER, UNSPECIFIED SNOMED Code(s): 801747074 (2) Gram-positive cocci bacteremia Narrative/Plan: 68-year-old female presents to hospital with weakness and feeling poorly and having fever at home. She is a very complex past medical history regarding her chronic back pain with history of a prior spinal cord stimulator that had failed. In February she had a epidural pain pump applied the trial went well and then at follow-up, pump was applied she's developed good control of her pain. Now presents feeling poorly and has been noticed that she has fever, leukocytosis and with evidence of possible cultures the infectious diseases consultation was requested. The the laboratory is now reporting the Gram- positive cocci. Outside data is reviewed which shows the imaging studies with a fluid collection around the pain pump this was aspirated the outside hospital and cultures were negative. Blood cultures at the [facility] in the outside hospital were also negative. She's now developed what appears to be staph aureus bacteremia and with her many ALLERGIES daptomycin is initiated. Follow-up cultures are requested. The patient's neurologist Dr. Dyson has been consulted and pain management has also been requested. Fortunately at this time she has modestly comfortable. She was having some difficulty with urgency of urination and stool yesterday. She went to use the bathroom but the roommate was in the bathroom in counseling she walked in the hallway looking for bathroom suffering a fall. Computed tomography scan of her head was performed without acute bleed or other abnormality. Fortunately not feeling poorly at this time. Depending on the findings she made need transfer to the tertiary center for evaluation and removal of the pain pump, it is still the most likely etiology of the current staph aureus bacteremia. Echocardiogram has been requested also. 03/29/2018 patient still feels poorly but better than yesterday. Continues to have pain but is more mobile. She is able to eat some solids without significant nausea or emesis. Neurological evaluation is still in process, and hopefully will help direct the next best course of therapy regarding the possibility of infected of the pain pump with the MRSA bacteremia being noted. 04/01/2018 reveals the patient to have some improvement. The blood culture is positive for MRSA however only one is positive so far. This limited bacteremia would make it less likely that the pain pump is infected. Echocardiogram without evidence of significant endocarditis. The patient has many ALLERGIES and is currently being treated with daptomycin therapy with improvement. This will continue to will need outpatient intravenous antibiotic therapy after discharge. The case is discussed with her neurologist and given her rapid resolution of her bacteremia will attempt a course of antibiotic therapy and close follow-up of her pain pump. Will need intravenous access for the IV antibiotic therapy. Current Visit: Yes Status: Acute Code(s): R78.81 - BACTEREMIA SNOMED Code( s): 112286211871
[2018-04-02] MEDS: SYMBICORT 160-4.5 MCG INHALER INHALATION SCH ×3 (01:20→20:21)
[2018-04-02] MEDS: LEVOTHYROXINE 88 MCG TAB PO SCH (05:47)
[2018-04-02] MEDS: valACYclovir HCL 1,000 MG TABLET PO SCH (07:59)
[2018-04-02] MEDS: FERROUS SULFATE 325 MG TAB PO SCH (08:01)
[2018-04-02] MEDS: PANTOPRAZOLE 40 MG/10 ML VIAL IVP SCH ×2 (08:01→21:31)
[2018-04-02] MEDS: CHOLECALCIFEROL 1,000 UNIT TAB PO SCH (08:01)
[2018-04-02] MEDS: cycloSPORINE 0.05% OPHTH 0.4 ML DROPERETTE BOTH EYES SCH ×2 (08:01→21:31)
[2018-04-02] MEDS: HEPARIN SODIUM,PORCINE 5,000 UNIT/ML 1 ML VIAL SQ SCH ×2 (08:01→21:31)
[2018-04-02] MEDS: CLOPIDOGREL 75 MG TAB PO SCH (08:01)
[2018-04-02] MEDS: ASCORBIC ACID 500 MG TAB PO SCH (08:01)
[2018-04-02] MEDS: DULoxetine HCL 60 MG CAPSULE.DR PO SCH ×2 (08:01→21:29)
[2018-04-02] MEDS: METOPROLOL TARTRATE 50 MG TAB PO SCH ×2 (08:02→21:30)
[2018-04-02] MEDS: LOSARTAN 50 MG TAB PO SCH (08:02)
[2018-04-02] MEDS: amLODIPine 10 MG TAB PO SCH (08:02)
[2018-04-02] MEDS ORDERED: ALBUTEROL NEBULIZED 2.5 MG/3 ML INHALATION PRN ×2 (08:03→08:04)
--- NOTE | 2018-04-02 08:53 | P.PN ---
Subjective Progress Note Date: 04/01/18 This patient is a 68 year old female who is being evaluated for altered mental status. The patient is being treated for underlying sepsis. She has a history of chronic back pain and history of a prior spinal cord stimulator placement that has failed. In February she underwent an epidural pain pump application she is established good control with the pain pump however there is concern that she may have underlying sepsis secondary to this device. She is being followed closely by Dr. Krishna from infectious disease. She is having Gram-positive cocci and apparently there is imaging studies revealing a fluid collection around the pain pump and this was aspirated at outside hospital at [place]. It was felt that she had MRSA. She continues to do fairly well in terms of pain management and is not showing high-grade fever. Computed tomography scan of the brain failed to reveal any acute abnormalities. Fortunately she has not been feeling poor and appears to be making good progress. Blood cultures are positive for MRSA however only 1 is positive BuSpar. She has limited bacteremia at this time. Echocardiogram revealed no evidence to suggest endocarditis. We will continue close neurological follow-up with this patient during this admission. Her overall mental status shows improvement since her infection is under better control. Her overall prognosis at this time remains guarded. Objective - Vital Signs Vital signs: Vital Signs Temp 98.2 F 04/01/18 19:53 Pulse 88 04/01/18 20:30 Resp 19 04/01/18 19:53 BP 122/68 04/01/18 19:53 Pulse Ox 99 04/01/18 15:00 Intake & Output 04/01/18 04/01/18 04/02/18 06:59 18:59 06:59 Intake Total 200 1050 Output Total 1 Balance 199 1050 Weight 72.575 kg Intake: Intake, IV Titration 250 Amount DAPTOmycin 500 mg In 100 Sodium Chloride 0.9% 50 ml @ 100 mls/hr IVPB Q24H [facility] Rx#:[id number] Levofloxacin 750Mg-D5w 150 Pmx 750 mg In Dextrose/ Water 1 150ml.bag @ 100 mls/hr IVPB Q24H [facility] Rx#: [id number] Oral 200 800 Output: Urine 1 Other: Voiding Method Toilet Toilet # Voids 1 - Exam Physical Examination: PHYSICAL EXAMINATION: Patient is resting comfortably in bed. VITAL SIGNS: Blood pressure is [95/54]. Heart rate is [79]. Respiration is [18] . Temperature is [98.1]. HEENT: Head is atraumatic, neck is supple, there were no carotid bruits. CHEST: Lungs are clear to auscultation and percussion. CARDIAC: S1, S2 normal rate and rhythm. There is no murmur. ABDOMEN: Soft and nontender. Bowel sounds are present. EXTREMITIES: There is no pedal edema. Peripheral pulses are present. Neurological examination: Patient's neurological examination is unchanged from yesterday. - Labs CBC & Chem 7: 04/01/18 08:03 04/01/18 08:03 Labs: Abnormal Lab Results - Last 24 Hours (Table) 04/01/18 04/01/18 Range/Units 08:03 08:03 RBC 3.58 L (3.80-5.40) m/uL Hgb 9.9 L (11.4-16.0) gm/dL Hct 30.1 L (34.0-46.0) % Sodium 130 L (137-145) mmol/L Chloride 94 L (98-107) mmol/L Glucose 100 H (74-99) mg/dL Microbiology - Last 24 Hours (Table) 03/29/18 09:34 Blood Culture - Preliminary Blood No Growth after 72 hours 03/29/18 09:10 Blood Culture - Preliminary Blood No Growth after 72 hours Assessment and Plan (1) Fever of unknown origin Current Visit: Yes Status: Acute Code(s): R50.9 - FEVER, UNSPECIFIED SNOMED Code(s): 5467389 (2) Sepsis Current Visit: Yes Status: Acute Code(s): A41.9 - SEPSIS, UNSPECIFIED ORGANISM SNOMED Code(s): 78431539 (3) Analgesic use Current Visit: Yes Status: Acute Code(s): Z79.899 - OTHER BLIND HOOKER (CURRENT ) DRUG THERAPY SNOMED Code(s): 358497068 (4) Lumbar degenerative disc disease Current Visit: No Status: Chronic Code(s): M51.36 - OTHER INTERVERTEBRAL DISC DEGENERATION, LUMBAR REGION SNOMED Code(s): 57336076 (5) Urinary tract infection Current Visit: Yes Status: Acute Code(s): N39.0 - URINARY TRACT INFECTION, SITE NOT SPECIFIED SNOMED Code(s): 15655743 (6) Status post insertion of spinal cord stimulator Current Visit: No Status: Chronic Code(s): Z98.89 - OTHER SPECIFIED POSTPROCEDURAL STATES * DO NOT USE * SNOMED Code(s): 965864954 Plan: This patient is a 68-year-old right-handed white female who was admitted to hospital with recent placement of a pain pump for management of chronic pain syndrome. Patient was seen by Dr. Dyson and a pain pump was inserted on 02/19. The pump was working well and she had a refill done on 03/07/2018. Patient developed symptoms of fever and increased pain with abdominal discomfort. She was sent to [facility] for evaluation of sepsis. Actual records from [place] were not available today at the time of her consultation. She states she was told that she may or may not have MRSA. She was discharged from [facility] on 03/19/2018. Her symptoms worsened over the next several days and she was advised to come today to the emergency room at [facility] for further evaluation. Dr. Dyson was not able to see the patient yesterday or today. The patient was found to have evidence of altered mental status and confusion and for this reason we were consulted today for neurological evaluation and recommendations. The patient has chronic pain syndrome and is unclear whether there is some malfunction of her pain pump. Dr. Dyson was not available and we have recommended the patient should be seen by pain management in the anesthesia Department for their opinion. The patient also sustained a fall today and struck the back of her head and we have recommended a stat computed tomography scan of the brain to be done this evening. She does seem to have evidence of a diffuse encephalopathy secondary to sepsis. We have recommended an infectious disease consultation for this patient with Dr. Krishna. We will need to obtain the records from [facility] as to her overall hospital course there and final decision at discharge. Patient is not a very good historian and cannot provide details of her various hospital stays. This patient's overall prognosis at this time remains very guarded. We will work with Dr. Dunn for further management of her condition. Dr. Krishna did evaluate the patient today for MRSA. She is showing improvement in response to her current antibiotics. At this point she does not require removal of the pain pump. We will continue to follow her closely with Dr. Krishna. Overall prognosis remains guarded. If her condition should worsen she may be considered for transfer to a tertiary center for higher level of care. Her overall prognosis at this time remains very guarded.
[2018-04-02 09:58] LABS: INR 1.1 (<1.2)
[2018-04-02] MEDS: DAPTOmycin 500 MG in SODIUM CHLORIDE 0.9% 50 ML IVPB SCH (11:08)
[2018-04-02] MEDS: MULTIVITAMINS, THERA 1 EACH TAB PO SCH (11:09)
[2018-04-02] MEDS: THIAMINE 100 MG TAB PO SCH (11:09)
[2018-04-02] MEDS: FOLIC ACID 1 MG TAB PO SCH (11:09)
[2018-04-02] MEDS: LEVOFLOXACIN 750MG-D5W PMX 750 MG in DEXTROSE/WATER 1 150ML.BAG IVPB SCH (12:49)
--- NOTE | 2018-04-02 14:39 | PN ---
PROGRESS NOTE The patient is seen for followup for hyponatremia, which was mainly euvolemic secondary to an element of SIADH, currently improved with fluid restriction. Sodium has been staying at 130 to 131 mEq/L. The patient was found to have MRSA bacteremia. She recently had a pain pump implanted. Repeat blood cultures have been negative. Patient is maintained on daptomycin. The pump was not removed and there are plans for possible discharge today. PHYSICAL EXAMINATION: On examination, blood pressure 95/54, heart rate 79 per minute. She is afebrile. EXAMINATION OF THE HEART: S1, S2. EXAMINATION OF THE LUNGS: Bilateral breath sounds are heard. Abdomen is soft, nontender. The implant is not tender. Examination of the legs shows no evidence of edema. [employer] WORK[employer] exam is grossly intact. LABS: Labs show sodium 130, potassium 4.1, BUN 15, serum creatinine 0.75, hemoglobin 9.9 g/dL. ASSESSMENT: 1. Euvolemic hyponatremia, currently stable with fluid restriction. Continue off of IV fluids. Monitor sodium as outpatient. 2. Methicillin-resistant Staphylococcus aureus bacteremia, maintained on daptomycin. 3. Hypertension. Currently controlled. Continue with current medications. PLAN: Follow up as outpatient in about 2 to 3 weeks time post discharge. Continue with fluid restriction. MMODL / IJN: [id number] /
--- NOTE | 2018-04-02 16:36 | PN ---
PROGRESS NOTE DATE OF SERVICE: 04/01/2018 This 68-year-old woman was admitted with UTI and sepsis, also MRSA sepsis. The patient closely monitored. No chest pain. No palpitations. No fever. The patient also had pain pump also recently inserted. PHYSICAL EXAM: Alert and oriented x3. The vitals are pulse 94, blood pressure 130/75, respiration 18, temperature 98 degrees, pulse ox 94% on room air. HEENT: Conjunctivae normal. Oral mucosa moist. NECK: No jugular venous distention. No carotid bruit. No lymph node enlargement. CARDIOVASCULAR: S1, S2. RESPIRATORY: Breath sounds diminished in the bases. No rhonchi no crackles. ABDOMEN: Soft. Pain pump was on the left lower quadrant, nontender. NERVOUS SYSTEM: No focal deficits. LABS: Reviewed. ASSESSMENT: 1. Acute urinary tract infection with sepsis, present on admission. 2. MRSA sepsis. 3. Chronic pain recently inserted pain pump on the left anterior abdominal wall. 4. Leukocytosis secondary to sepsis. 5. Hyponatremia on gentle hydration. 6. Hypokalemia improved. 7. Gait dysfunction. 8. Asthma. 9. History of congestive heart failure. 10.History of cerebrovascular accident, transient ischemic attack. 11.History of fibromyalgia. 12.History of gastroesophageal reflux disease. 13.Hypertension. 14.Hyperlipidemia. 15.History of degenerative joint disease. 16.Hypothyroidism. 17.History of cardiomyopathy. 18.Anxiety, depression, panic disorder. RECOMMENDATIONS AND DISCUSSION: I recommend to continue current medications, monitoring and symptomatic treatment. At this time continue to monitor. Discussed with Dr. Dyson, who will discuss the case with Dr. Krishna regarding the pain pump and guarded prognosis. Further recommendations to follow. MMODL / IJN: [id number] /
--- NOTE | 2018-04-02 16:36 | PN ---
PROGRESS NOTE DATE OF SERVICE: 04/02/2018. INTERVAL HISTORY: This 68-year-old woman who was admitted with UTI and sepsis also had MRSA sepsis from the blood. The patient is closely monitored. No chest pain, no palpitation. No fever. PT, OT evaluated the patient. PHYSICAL EXAM: Alert and oriented x3. Pulse 79, blood pressure 90/52, respiration 18, temperature 98.1, pulse ox 99% on room air. HEENT: Conjunctivae normal. Oral mucosa moist. NECK: No jugular venous distention. No carotid bruit. No lymph node enlargement. CARDIOVASCULAR: S1, S2. RESPIRATORY: Breath sounds diminished in the bases. No rhonchi, no crackles. ABDOMEN: Soft, nontender. No mass palpable. LEGS: No edema, no swelling. NERVOUS SYSTEM: No focal deficits. LABS: At this time shows WBC 8, hemoglobin 9, sodium 130. ASSESSMENT: 1. Acute urinary tract infection with sepsis, present on admission. 2. MRSA sepsis. 3. Chronic pain syndrome with recently inserted pain pump on the left abdominal wound. 4. Leukocytosis secondary to sepsis. 5. Hyponatremia on gentle hydration. 6. Hypokalemia, improved. 7. Gait dysfunction. 8. Asthma. 9. History of congestive heart failure. 10.History of cerebrovascular accident, transient ischemic attack. 11.History of fibromyalgia. 12.History of gastroesophageal reflux disease. 13.Hypertension. 14.Hyperlipidemia. 15.History of degenerative joint disease. 16.Hypothyroidism. 17.History of cardiomyopathy. 18.Anxiety, depression, panic disorder. RECOMMENDATIONS AND DISCUSSION: I recommend to continue current medication, continue symptomatic treatment. Otherwise, at this time I would recommend to continue with IV antibiotics. Discharge planning and school social worker is planning towards discharge. PT, OT evaluation. The ECF is also a possibility. Further recommendations to follow. MMODL / IJN: [id number] /
[2018-04-02] MEDS: ACETAMINOPHEN TAB 325 MG TAB PO PRN (19:05)
[2018-04-02] MEDS: ASPIRIN 81 MG PO SCH (21:29)
[2018-04-02] MEDS: CARBIDOPA-LEVODOPA 25-100 MG 1 EACH TAB PO SCH (21:29)
[2018-04-02] MEDS: MONTELUKAST 10 MG TAB PO SCH (21:30)
[2018-04-03] MEDS: LEVOTHYROXINE 88 MCG TAB PO SCH (06:03)
--- NOTE | 2018-04-03 07:22 | P.PN ---
Subjective Progress Note Date: 04/02/18 This patient is a 68 year old female who is being evaluated for altered mental status. The patient is being treated for underlying sepsis. She has a history of chronic back pain and history of a prior spinal cord stimulator placement that has failed. In February she underwent an epidural pain pump application she is established good control with the pain pump however there is concern that she may have underlying sepsis secondary to this device. She is being followed closely by Dr. Krishna from infectious disease. She is having Gram-positive cocci and apparently there is imaging studies revealing a fluid collection around the pain pump and this was aspirated at outside hospital at [place]. It was felt that she had MRSA. She continues to do fairly well in terms of pain management and is not showing high-grade fever. Computed tomography scan of the brain failed to reveal any acute abnormalities. Fortunately she has not been feeling poor and appears to be making good progress. Blood cultures are positive for MRSA however only 1 is positive BuSpar. She has limited bacteremia at this time. Echocardiogram revealed no evidence to suggest endocarditis. The patient was seen by nephrology today and her serum sodium was noted to be 1:30. Serum creatinine is 0.75. She has evidence of a euvolemic hyponatremia which at this time remains stable. She will need close monitoring of her serum sodium 1 she is discharged. As mentioned she is being treated for MRSA bacteremia and is currently being maintained on daptomycin. She recently had her pain pump implanted and this will need to be followed up outpatient as to whether this needs to be removed. She is being considered for possible discharge home in the next day or 2. We will continue to follow her progress closely during this admission. We will continue close neurological follow-up with this patient during this admission. Her overall mental status shows improvement since her infection is under better control. Her overall prognosis at this time remains guarded. Objective - Vital Signs Vital signs: Vital Signs Temp 98 F 04/02/18 13:00 Pulse 100 04/02/18 16:00 Resp 20 04/02/18 16:00 BP 95/59 04/02/18 16:00 Pulse Ox 93 L 04/02/18 13:00 Intake & Output 04/02/18 04/02/18 04/03/18 06:59 18:59 06:59 Other: Voiding Method Toilet Toilet # Voids 2 2 - Exam Physical Examination: PHYSICAL EXAMINATION: Patient is resting comfortably in bed. VITAL SIGNS: Blood pressure is [122/60]. Heart rate is [89]. Respiration is [20] . Temperature is [98.1]. HEENT: Head is atraumatic, neck is supple, there were no carotid bruits. CHEST: Lungs are clear to auscultation and percussion. CARDIAC: S1, S2 normal rate and rhythm. There is no murmur. ABDOMEN: Soft and nontender. Bowel sounds are present. EXTREMITIES: There is no pedal edema. Peripheral pulses are present. Neurological examination: Patient's neurological examination is unchanged from yesterday. - Labs CBC & Chem 7: 04/01/18 08:03 04/01/18 08:03 Labs: Microbiology - Last 24 Hours (Table) 03/29/18 09:34 Blood Culture - Preliminary Blood No Growth after 96 hours 03/29/18 09:10 Blood Culture - Preliminary Blood No Growth after 96 hours Assessment and Plan (1) Fever of unknown origin Current Visit: Yes Status: Acute Code(s): R50.9 - FEVER, UNSPECIFIED SNOMED Code(s): 8251211 (2) Sepsis Current Visit: Yes Status: Acute Code(s): A41.9 - SEPSIS, UNSPECIFIED ORGANISM SNOMED Code(s): 35100983 (3) Analgesic use Current Visit: Yes Status: Acute Code(s): Z79.899 - OTHER RESPIRATORY SUPPORT TECHNICIAN (CURRENT ) DRUG THERAPY SNOMED Code(s): 951856762 (4) Lumbar degenerative disc disease Current Visit: No Status: Chronic Code(s): M51.36 - OTHER INTERVERTEBRAL DISC DEGENERATION, LUMBAR REGION SNOMED Code(s): 74869866 (5) Urinary tract infection Current Visit: Yes Status: Acute Code(s): N39.0 - URINARY TRACT INFECTION, SITE NOT SPECIFIED SNOMED Code(s): 84281025 (6) Status post insertion of spinal cord stimulator Current Visit: No Status: Chronic Code(s): Z98.89 - OTHER SPECIFIED POSTPROCEDURAL STATES * DO NOT USE * SNOMED Code(s): 246776588 Plan: This patient is a 68-year-old right-handed white female who was admitted to hospital with recent placement of a pain pump for management of chronic pain syndrome. Patient was seen by Dr. Dyson and a pain pump was inserted on 02/19. The pump was working well and she had a refill done on 03/07/2018. Patient developed symptoms of fever and increased pain with abdominal discomfort. She was sent to [facility] for evaluation of sepsis. Actual records from [place] were not available today at the time of her consultation. She states she was told that she may or may not have MRSA. She was discharged from [facility] on 03/19/2018. Her symptoms worsened over the next several days and she was advised to come today to the emergency room at [facility] for further evaluation. Dr. Dyson was not able to see the patient yesterday or today. The patient was found to have evidence of altered mental status and confusion and for this reason we were consulted today for neurological evaluation and recommendations. The patient has chronic pain syndrome and is unclear whether there is some malfunction of her pain pump. Dr. Dyson was not available and we have recommended the patient should be seen by pain management in the anesthesia Department for their opinion. The patient also sustained a fall today and struck the back of her head and we have recommended a stat computed tomography scan of the brain to be done this evening. She does seem to have evidence of a diffuse encephalopathy secondary to sepsis. We have recommended an infectious disease consultation for this patient with Dr. Krishna. We will need to obtain the records from [facility] as to her overall hospital course there and final decision at discharge. Patient is not a very good historian and cannot provide details of her various hospital stays. This patient's overall prognosis at this time remains very guarded. We will work with Dr. Dunn for further management of her condition. Dr. Krishna did evaluate the patient today for MRSA. She is showing improvement in response to her current antibiotics. At this point she does not require removal of the pain pump. We will continue to follow her closely with Dr. Krishna. The patient is being maintained on daptomycin and should follow-up with Dr. Krishna soon after discharge. She does have her pain pump still in place and it is to be decided whether this may need removal. She is being considered for possible discharge home in the next day or 2. Overall prognosis remains guarded. If her condition should worsen she may be considered for transfer to a tertiary center for higher level of care. Patient should follow-up with her primary care physician and with her neurologist once she is discharged home in the next day or 2. Her overall prognosis at this time remains very guarded.
[2018-04-03 08:09] LABS: Basophils % (A) 0 %; Eosinophils # (A) 0.3 k/uL (0-0.7); Eosinophils % (A) 4 %; HCT 30.1 % (34.0-46.0); Lymphocytes # (A) 1.8 k/uL (1.0-4.8); Lymphocytes % (A) 29 %; MCHC 33.3 g/dL (31.0-37.0); Mean Platelet Volume 6.4; Monocytes # (A) 0.4 k/uL (0-1.0); Monocytes % (A) 6 %; Neutrophils # (A) 3.8 k/uL (1.3-7.7); Neutrophils % (A) 59 %; Platelet Count 331 k/uL (150-450); RBC 3.58 m/uL (3.80-5.40); RDW 13.3 % (11.5-15.5); WBC 6.4 k/uL (3.8-10.6)
[2018-04-03 08:19] LABS: Calcium 9.4 mg/dL (8.4-10.2); Potassium 3.7 mmol/L (3.5-5.1)
[2018-04-03] MEDS: PANTOPRAZOLE 40 MG/10 ML VIAL IVP SCH ×2 (08:20→20:31)
[2018-04-03] MEDS: FERROUS SULFATE 325 MG TAB PO SCH (08:21)
[2018-04-03] MEDS: CLOPIDOGREL 75 MG TAB PO SCH (08:21)
[2018-04-03] MEDS: DULoxetine HCL 60 MG CAPSULE.DR PO SCH ×2 (08:21→20:31)
[2018-04-03] MEDS: ASCORBIC ACID 500 MG TAB PO SCH (08:21)
[2018-04-03] MEDS: HEPARIN SODIUM,PORCINE 5,000 UNIT/ML 1 ML VIAL SQ SCH ×2 (08:21→20:30)
[2018-04-03] MEDS: CHOLECALCIFEROL 1,000 UNIT TAB PO SCH (08:21)
[2018-04-03] MEDS: METOPROLOL TARTRATE 50 MG TAB PO SCH ×2 (08:21→20:30)
[2018-04-03] MEDS: cycloSPORINE 0.05% OPHTH 0.4 ML DROPERETTE BOTH EYES SCH ×2 (08:21→20:31)
[2018-04-03] MEDS: LOSARTAN 50 MG TAB PO SCH (08:22)
[2018-04-03] MEDS: valACYclovir HCL 1,000 MG TABLET PO SCH (08:22)
[2018-04-03] MEDS: SYMBICORT 160-4.5 MCG INHALER INHALATION SCH ×2 (08:48→21:18)
[2018-04-03] MEDS ORDERED: amLODIPine 10 MG TAB PO SCH (09:00)
[2018-04-03] MEDS: DAPTOmycin 500 MG in SODIUM CHLORIDE 0.9% 50 ML IVPB SCH (09:48)
[2018-04-03] MEDS: ACETAMINOPHEN TAB 325 MG TAB PO PRN (10:11)
[2018-04-03] MEDS: MULTIVITAMINS, THERA 1 EACH TAB PO SCH (11:52)
[2018-04-03] MEDS: FOLIC ACID 1 MG TAB PO SCH (11:52)
[2018-04-03] MEDS: THIAMINE 100 MG TAB PO SCH (11:52)
[2018-04-03] MEDS: LEVOFLOXACIN 750MG-D5W PMX 750 MG in DEXTROSE/WATER 1 150ML.BAG IVPB SCH (11:53)
--- NOTE | 2018-04-03 12:02 | P.PN ---
Subjective Progress Note Date: 04/03/18 This is a 68 year old female seen in consultation because of hyponatremia secondary to SIADH from pain as well as now today her creatinine has gone up from 0.75-1.18. Her blood pressure was in the 90 range. She is on multiple blood pressure medication She continues to have back pain she had a pain pump placed which is supposedly not working. No nausea vomiting diarrhea abdominal pain. No fever chills no shortness of breath or dizziness. Appetite is good. She is known with asthma and fibromyalgia hypertension sleep apnea on BiPAP previous left-sided weaknesses. She had bariatric surgery heart catheterization. She also has had lithotripsy in the past. Objective - Vital Signs Vital signs: Vital Signs Temp 98.3 F 04/03/18 05:00 Pulse 87 04/03/18 08:00 Resp 17 04/03/18 08:00 BP 94/64 04/03/18 05:00 Pulse Ox 98 04/03/18 05:00 Intake & Output 04/02/18 04/03/18 04/03/18 18:59 06:59 18:59 Other: Voiding Method Toilet Toilet Toilet # Voids 2 1 On examination awake alert oriented comfortable HEENT exam no JVP neck is supple no facial asymmetry Lungs are clear to auscultation fair air entry bilaterally Heart sounds are unremarkable for any murmur rub gallop Abdomen soft nontender She has a scar of pain pump on her upper abdomen which is somewhat tender but the scar is clear. Extremity exam was no edema Neurologically awake alert oriented comfortable - Labs CBC & Chem 7: 04/03/18 07:28 04/03/18 07:28 Labs: Abnormal Lab Results - Last 24 Hours (Table) 04/03/18 04/03/18 Range/Units 07:28 07:28 RBC 3.58 L (3.80-5.40) m/uL Hgb 10.0 L (11.4-16.0) gm/dL Hct 30.1 L (34.0-46.0) % Sodium 132 L (137-145) mmol/L Chloride 94 L (98-107) mmol/L Creatinine 1.18 H (0.52-1.04) mg/dL Microbiology - Last 24 Hours (Table) 03/29/18 09:34 Blood Culture - Preliminary Blood No Growth after 120 hours 03/29/18 09:10 Blood Culture - Preliminary Blood No Growth after 120 hours Assessment and Plan Assessment: Impression 1. Hyponatremia secondary to SIADH. Sodium is 132. Patient is not on any restriction 2. Acute kidney injury now this morning secondary to low blood pressure in the 90s on multiple blood pressure medication. 3. Chronic pain Plan- 1. Will decrease the amlodipine from 10 mg to 5 mg. Hold blood pressure medications for systolic less than 110. 2. Repeat labs tomorrow. 3. She may need fluid restriction but for right now we'll just watch her
--- NOTE | 2018-04-03 17:43 | PN ---
PROGRESS NOTE DATE OF SERVICE: 04/03/2018 This 68-year-old woman who was admitted with acute UTI with sepsis, is being closely monitored at this time. MRSA was grown from the blood culture. No chest pain. No palpitations. No fever. PT, OT has been evaluating the patient as well as patient being managed Case Management Team. No chest pain. No palpitations. No fever. PHYSICAL EXAM: Alert and oriented x3. Pulse 87, blood pressure 94/64, respiration 17, temperature 98.2, pulse ox 98% on room air. HEENT: Conjunctivae normal. Oral mucosa moist. NECK: No jugular venous distention. No carotid bruit. No lymph node enlargement. CARDIOVASCULAR: S1, S2. RESPIRATORY: Breath sounds diminished in the bases. No rhonchi, no crackles. ABDOMEN: Soft, nontender. LEGS: No edema. NERVOUS SYSTEM: No focal deficits. LABS: At this time shows WBC 6.2, hemoglobin 10, sodium 132. ASSESSMENT: 1. Acute urinary tract infection with sepsis, present on admission. 2. MRSA sepsis. 3. Chronic pain syndrome with recently inserted pain pump on the left anterior abdominal wall. 4. Leukocytosis secondary to sepsis. 5. Hyponatremia on gentle hydration. 6. Hypokalemia, improved. 7. Gait dysfunction. 8. History of asthma. 9. History of congestive heart failure. 10.History of cerebrovascular accident, transient ischemic attack. 11.History of fibromyalgia. 12.Gastroesophageal reflux disease. 13.Hypertension. 14.Hyperlipidemia. 15.History of degenerative joint disease. 16.Hypothyroidism. 17.History of cardiomyopathy. 18.Anxiety, depression, panic disorder. RECOMMENDATIONS AND DISCUSSION: I recommend to continue current management, continue monitoring, and symptomatic treatment. We will monitor the patient closely. Otherwise, continue with current medications. Continue the antibiotics and PT/OT evaluation. Further recommendations to follow. MMODL / IJN: [id number] /
[2018-04-03] MEDS: MONTELUKAST 10 MG TAB PO SCH (20:30)
[2018-04-03] MEDS: ASPIRIN 81 MG PO SCH (20:31)
[2018-04-03] MEDS: CARBIDOPA-LEVODOPA 25-100 MG 1 EACH TAB PO SCH (20:31)
[2018-04-04] MEDS: LEVOTHYROXINE 88 MCG TAB PO SCH (06:09)
[2018-04-04] MEDS: SYMBICORT 160-4.5 MCG INHALER INHALATION SCH ×2 (07:31→20:20)
[2018-04-04] MEDS ORDERED: amLODIPine 5 MG TAB PO SCH (09:00)
--- NOTE | 2018-04-04 09:20 | P.PN ---
Subjective Progress Note Date: 04/03/18 This patient is a 68 year old female who is being evaluated for altered mental status. The patient is being treated for underlying sepsis. She has a history of chronic back pain and history of a prior spinal cord stimulator placement that has failed. In February she underwent an epidural pain pump application she is established good control with the pain pump however there is concern that she may have underlying sepsis secondary to this device. She is being followed closely by Dr. Krishna from infectious disease. She is having Gram-positive cocci and apparently there is imaging studies revealing a fluid collection around the pain pump and this was aspirated at outside hospital at [place]. It was felt that she had MRSA. She continues to do fairly well in terms of pain management and is not showing high-grade fever. Computed tomography scan of the brain failed to reveal any acute abnormalities. Fortunately she has not been feeling poor and appears to be making good progress. Blood cultures are positive for MRSA however only 1 is positive BuSpar. She has limited bacteremia at this time. Echocardiogram revealed no evidence to suggest endocarditis. The patient was seen by nephrology today and her serum sodium was noted to be 1:30. Serum creatinine is 0.75. She has evidence of a euvolemic hyponatremia which at this time remains stable. She will need close monitoring of her serum sodium 1 she is discharged. As mentioned she is being treated for MRSA bacteremia and is currently being maintained on daptomycin. She recently had her pain pump implanted and this will need to be followed up outpatient as to whether this needs to be removed. She is being considered for possible discharge home in the next day or 2. We will continue to follow her progress closely during this admission. We will continue close neurological follow-up with this patient during this admission. Her overall mental status shows improvement since her infection is under better control. Patient is awaiting possible discharge home in the next day or 2. She is being treated for underlying hyponatremia. Her serum sodium today is 132. She should follow- up with her primary care physician and neurologist soon after discharge. Her overall prognosis at this time remains guarded. Objective - Vital Signs Vital signs: Vital Signs Temp 98.1 F 04/03/18 13:00 Pulse 85 04/03/18 16:00 Resp 18 04/03/18 16:00 BP 88/54 04/03/18 13:00 Pulse Ox 98 04/03/18 13:00 Intake & Output 04/02/18 04/03/18 04/03/18 18:59 06:59 18:59 Intake Total 200 Balance 200 Intake: Intake, IV Titration 200 Amount DAPTOmycin 500 mg In 50 Sodium Chloride 0.9% 50 ml @ 100 mls/hr IVPB Q24H [facility] Rx#:[id number] Levofloxacin 750Mg-D5w 150 Pmx 750 mg In Dextrose/ Water 1 150ml.bag @ 100 mls/hr IVPB Q24H [facility] Rx#: [id number] Other: Voiding Method Toilet Toilet Toilet # Voids 2 1 - Exam Physical Examination: PHYSICAL EXAMINATION: Patient is resting comfortably in bed. VITAL SIGNS: Blood pressure is [94/64]. Heart rate is [87]. Respiration is [17] . Temperature is [98.3]. HEENT: Head is atraumatic, neck is supple, there were no carotid bruits. CHEST: Lungs are clear to auscultation and percussion. CARDIAC: S1, S2 normal rate and rhythm. There is no murmur. ABDOMEN: Soft and nontender. Bowel sounds are present. EXTREMITIES: There is no pedal edema. Peripheral pulses are present. Neurological examination: Patient's neurological examination is unchanged from yesterday. - Labs CBC & Chem 7: 04/03/18 07:28 04/03/18 07:28 Labs: Abnormal Lab Results - Last 24 Hours (Table) 04/03/18 04/03/18 Range/Units 07:28 07:28 RBC 3.58 L (3.80-5.40) m/uL Hgb 10.0 L (11.4-16.0) gm/dL Hct 30.1 L (34.0-46.0) % Sodium 132 L (137-145) mmol/L Chloride 94 L (98-107) mmol/L Creatinine 1.18 H (0.52-1.04) mg/dL Microbiology - Last 24 Hours (Table) 03/29/18 09:34 Blood Culture - Preliminary Blood No Growth after 120 hours 03/29/18 09:10 Blood Culture - Preliminary Blood No Growth after 120 hours Assessment and Plan (1) Fever of unknown origin Current Visit: Yes Status: Acute Code(s): R50.9 - FEVER, UNSPECIFIED SNOMED Code(s): 3776791 (2) Sepsis Current Visit: Yes Status: Acute Code(s): A41.9 - SEPSIS, UNSPECIFIED ORGANISM SNOMED Code(s): 26503766 (3) Analgesic use Current Visit: Yes Status: Acute Code(s): Z79.899 - OTHER DIRECTOR OF INSTITUTIONAL SALES (CURRENT ) DRUG THERAPY SNOMED Code(s): 605587681 (4) Lumbar degenerative disc disease Current Visit: No Status: Chronic Code(s): M51.36 - OTHER INTERVERTEBRAL DISC DEGENERATION, LUMBAR REGION SNOMED Code(s): 53886632 (5) Urinary tract infection Current Visit: Yes Status: Acute Code(s): N39.0 - URINARY TRACT INFECTION, SITE NOT SPECIFIED SNOMED Code(s): 45617190 (6) Status post insertion of spinal cord stimulator Current Visit: No Status: Chronic Code(s): Z98.89 - OTHER SPECIFIED POSTPROCEDURAL STATES * DO NOT USE * SNOMED Code(s): 964862968 Plan: This patient is a 68-year-old right-handed white female who was admitted to hospital with recent placement of a pain pump for management of chronic pain syndrome. Patient was seen by Dr. Dyson and a pain pump was inserted on 02/19. The pump was working well and she had a refill done on 03/07/2018. Patient developed symptoms of fever and increased pain with abdominal discomfort. She was sent to [facility] for evaluation of sepsis. Actual records from [place] were not available today at the time of her consultation. She states she was told that she may or may not have MRSA. She was discharged from [facility] on 03/19/2018. Her symptoms worsened over the next several days and she was advised to come today to the emergency room at [facility] for further evaluation. Dr. Dyson was not able to see the patient yesterday or today. The patient was found to have evidence of altered mental status and confusion and for this reason we were consulted today for neurological evaluation and recommendations. The patient has chronic pain syndrome and is unclear whether there is some malfunction of her pain pump. Dr. Dyson was not available and we have recommended the patient should be seen by pain management in the anesthesia Department for their opinion. The patient also sustained a fall today and struck the back of her head and we have recommended a stat computed tomography scan of the brain to be done this evening. She does seem to have evidence of a diffuse encephalopathy secondary to sepsis. We have recommended an infectious disease consultation for this patient with Dr. Krishna. We will need to obtain the records from [facility] as to her overall hospital course there and final decision at discharge. Patient is not a very good historian and cannot provide details of her various hospital stays. This patient's overall prognosis at this time remains very guarded. We will work with Dr. Dunn for further management of her condition. Dr. Krishna did evaluate the patient today for MRSA. She is showing improvement in response to her current antibiotics. At this point she does not require removal of the pain pump. We will continue to follow her closely with Dr. Krishna. The patient is being maintained on daptomycin and should follow-up with Dr. Krishna soon after discharge. She does have her pain pump still in place and it is to be decided whether this may need removal. She is being considered for possible discharge home in the next day or 2. Overall prognosis remains guarded. The patient clinically continues to show signs of improvement with no significant signs of sepsis. She will need to follow-up with her neurologist for possible evaluation for removal of her pain pump upon discharge. She is afebrile today and we're waiting any further recommendations from Dr. Krishna from infectious disease regarding further management. Patient should follow-up with her primary care physician and with her neurologist once she is discharged home in the next day or 2. Her overall prognosis at this time remains very guarded.
[2018-04-04] MEDS: ASCORBIC ACID 500 MG TAB PO SCH (10:45)
[2018-04-04] MEDS: CHOLECALCIFEROL 1,000 UNIT TAB PO SCH (10:45)
[2018-04-04] MEDS: cycloSPORINE 0.05% OPHTH 0.4 ML DROPERETTE BOTH EYES SCH ×2 (10:45→21:14)
[2018-04-04] MEDS: FERROUS SULFATE 325 MG TAB PO SCH (10:46)
[2018-04-04] MEDS: HEPARIN SODIUM,PORCINE 5,000 UNIT/ML 1 ML VIAL SQ SCH ×2 (10:46→21:14)
[2018-04-04] MEDS: DULoxetine HCL 60 MG CAPSULE.DR PO SCH ×2 (10:46→21:13)
[2018-04-04] MEDS: LOSARTAN 50 MG TAB PO SCH (10:47)
[2018-04-04] MEDS: METOPROLOL TARTRATE 50 MG TAB PO SCH ×2 (10:47→21:13)
[2018-04-04] MEDS: valACYclovir HCL 1,000 MG TABLET PO SCH (10:48)
[2018-04-04] MEDS: PANTOPRAZOLE 40 MG/10 ML VIAL IVP SCH ×2 (10:48→21:14)
[2018-04-04] MEDS: DAPTOmycin 500 MG in SODIUM CHLORIDE 0.9% 50 ML IVPB SCH (10:48)
[2018-04-04] MEDS: CLOPIDOGREL 75 MG TAB PO SCH (11:23)
[2018-04-04] MEDS: ACETAMINOPHEN TAB 325 MG TAB PO PRN ×2 (11:25→17:50)
[2018-04-04] MEDS: LEVOFLOXACIN 750MG-D5W PMX 750 MG in DEXTROSE/WATER 1 150ML.BAG IVPB SCH (11:26)
[2018-04-04] MEDS: FOLIC ACID 1 MG TAB PO SCH (11:26)
[2018-04-04] MEDS: MULTIVITAMINS, THERA 1 EACH TAB PO SCH (11:26)
[2018-04-04] MEDS: THIAMINE 100 MG TAB PO SCH (11:27)
--- NOTE | 2018-04-04 12:01 | P.PN ---
Subjective Progress Note Date: 04/04/18 This is a 68 year old female seen in consultation because of hyponatremia secondary to SIADH from pain as well as her creatinine has gone up from 0.75- 1.18. Her blood pressure was in the 90 range. She is on multiple blood pressure medication. I reduce her blood pressure medication yesterday, amlodipine from 10 mg to 5 mg. Blood pressure remains low at 88/54 and this morning is 109/56. She denies any dizziness her appetite is fair. She continues to have back pain she had a pain pump placed which is supposedly not working. No nausea vomiting diarrhea abdominal pain. No fever chills no shortness of breath or dizziness. Appetite is good. She has had staph aureus bacteremia and is currently on antibiotics long-term She is known with asthma and fibromyalgia hypertension sleep apnea on BiPAP previous left-sided weaknesses. She had bariatric surgery, heart catheterization. She also has had lithotripsy in the past. Objective - Vital Signs Vital signs: Vital Signs Temp 99.0 F 04/04/18 05:00 Pulse 56 L 04/04/18 05:00 Resp 16 04/04/18 05:00 BP 109/56 04/04/18 05:00 Pulse Ox 95 04/04/18 05:00 Intake & Output 04/03/18 04/04/18 04/04/18 18:59 06:59 18:59 Intake Total 200 1330 Balance 200 1330 Intake: Intake, IV Titration 200 Amount DAPTOmycin 500 mg In 50 Sodium Chloride 0.9% 50 ml @ 100 mls/hr IVPB Q24H [facility] Rx#:[id number] Levofloxacin 750Mg-D5w 150 Pmx 750 mg In Dextrose/ Water 1 150ml.bag @ 100 mls/hr IVPB Q24H [facility] Rx#: [id number] Oral 1330 Other: Voiding Method Toilet Toilet # Voids 1 n examination awake alert oriented comfortable HEENT exam no JVP neck is supple no facial asymmetry Lungs are clear to auscultation fair air entry bilaterally Heart sounds are unremarkable for any murmur rub gallop Abdomen soft nontender She has a scar of pain pump on her upper abdomen which is somewhat tender but the scar is clear. Extremity exam was no edema Neurologically awake alert oriented comfortable - Labs CBC & Chem 7: 04/03/18 07:28 04/03/18 07:28 Labs: Microbiology - Last 24 Hours (Table) 03/29/18 09:10 Blood Culture - Final Blood No Growth after 144 hours 03/29/18 09:34 Blood Culture - Preliminary Blood No Growth after 120 hours Assessment and Plan Assessment: Impression. 1. There are no labs available this morning and are pending as I have ordered it. 1. Hyponatremia secondary to SIADH. Sodium is 132. Patient is not on any restriction 2. Acute kidney injury now this morning secondary to low blood pressure in the 90s on multiple blood pressure medication. 3. Chronic pain. 4. Hypertension. Blood pressure is low and her amlodipine was decreased from 10 mg to 5 mg yesterday 04/03/2018 Plan- 1. Will discontinue the amlodipine. Hold blood pressure medications for systolic less than 110. 2. Repeat labs tomorrow. 3. She may need fluid restriction but for right now we'll just watch her
[2018-04-04] MEDS: ASPIRIN 81 MG PO SCH (21:12)
[2018-04-04] MEDS: MONTELUKAST 10 MG TAB PO SCH (21:12)
[2018-04-04] MEDS: CARBIDOPA-LEVODOPA 25-100 MG 1 EACH TAB PO SCH (21:13)
--- NOTE | 2018-04-04 22:26 | PN ---
PROGRESS NOTE DATE OF SERVICE: 04/04/2018 This 68-year-old woman who was admitted with acute urinary tract infection with sepsis is being closely monitored. Patient also had MRSA sepsis and chronic pain syndrome, gait dysfunction. Discharge planning is planning for discharge planning at this time along with foster care social worker. No chest pain. No palpitations. No fever. The patient has some transportation issues. PHYSICAL EXAM: Alert and oriented times three. Pulse is 87. Blood pressure 94/64, respirations 17, temp 98.2, pulse ox 98% on room air. HEENT: Conjunctivae normal. Oral mucosa moist. Neck is no jugular venous distention. No carotid bruit. No lymph node enlargement. Cardiovascular: S1, S2 muffled. Respirations: Breath sounds diminished in the bases. A few scattered rhonchi and crackles. ABDOMEN: Soft, nontender. No mass palpable. Legs no edema, no swelling. Central nervous system: Diffusely weak. LABS: WBC 6.2, hemoglobin is 10, sodium is 132. ASSESSMENT: 1. Acute urinary tract infection with sepsis present on admission. 2. MRSA sepsis. 3. Chronic pain syndrome with recently inserted pain pump of the left anterior abdominal wall. 4. Leukocytosis secondary to sepsis. 5. Hyponatremia on gentle hydration. 6. Hypokalemia improved. 7. Gait dysfunction. 8. History of asthma. 9. History of congestive heart failure. 10.History of cerebrovascular accident/transient ischemic attack. 11.History of fibromyalgia. 12.Gastroesophageal reflux disease. 13.Hypertension. 14.History of hyperlipidemia. 15.History of degenerative joint disease. 16.History of hypothyroidism. 17.History of cardiomyopathy. 18.Anxiety, depression, panic disorder. RECOMMENDATIONS AND DISCUSSION: Recommend to continue current medications, management. Symptomatic treatment. Otherwise, continue with current medication. Continue the antibiotics and closely follow up. Prognosis guarded. Social Work and Case Management to follow on Thursday and discharge planning. Further recommendations to follow. This now. MMODL / IJN: [id number] /
[2018-04-05] MEDS: LEVOTHYROXINE 88 MCG TAB PO SCH (06:10)
[2018-04-05] MEDS: LOSARTAN 50 MG TAB PO SCH (07:42)
[2018-04-05] MEDS: PANTOPRAZOLE 40 MG/10 ML VIAL IVP SCH ×2 (07:42→20:16)
[2018-04-05] MEDS: METOPROLOL TARTRATE 50 MG TAB PO SCH ×2 (07:42→20:17)
[2018-04-05] MEDS: valACYclovir HCL 1,000 MG TABLET PO SCH (07:42)
[2018-04-05] MEDS: DULoxetine HCL 60 MG CAPSULE.DR PO SCH ×2 (07:43→20:17)
[2018-04-05] MEDS: FERROUS SULFATE 325 MG TAB PO SCH (07:43)
[2018-04-05] MEDS: cycloSPORINE 0.05% OPHTH 0.4 ML DROPERETTE BOTH EYES SCH ×2 (07:43→20:16)
[2018-04-05] MEDS: HEPARIN SODIUM,PORCINE 5,000 UNIT/ML 1 ML VIAL SQ SCH ×2 (07:43→20:16)
[2018-04-05] MEDS: ASCORBIC ACID 500 MG TAB PO SCH (07:44)
[2018-04-05] MEDS: CLOPIDOGREL 75 MG TAB PO SCH (07:44)
[2018-04-05] MEDS: CHOLECALCIFEROL 1,000 UNIT TAB PO SCH (07:44)
[2018-04-05] MEDS: ACETAMINOPHEN TAB 325 MG TAB PO PRN (07:56)
[2018-04-05] MEDS: SYMBICORT 160-4.5 MCG INHALER INHALATION SCH ×2 (08:17→20:35)
--- NOTE | 2018-04-05 10:43 | P.PN ---
Subjective Patient is seen in follow-up for hyponatremia which is due to SIADH. Sodium level as of April 03 was 132. Patient states she had an episode of emesis last night. Otherwise she feels better this morning. No diarrhea. Denies chest pain or shortness of breath. Currently being treated for MRSA bacteremia. Vital signs are stable. General: The patient appeared well nourished and normally developed. HEENT: Head exam is unremarkable. Neck is without jugular venous distension. LUNGS: Lungs are clear to auscultation and percussion. Breath sounds decreased. HEART: Rate and Rhythm are regular. First and second heart sounds normal. No murmurs, rubs or gallops. ABDOMEN: Abdominal exam reveals normal bowel sounds. Non-tender and non- distended. No evidence of peritonitis. EXTREMITITES: No clubbing, cyanosis, or edema. Objective - Vital Signs Vital signs: Vital Signs Temp 97.9 F 04/05/18 05:00 Pulse 102 H 04/05/18 05:00 Resp 16 04/05/18 05:00 BP 115/61 04/05/18 05:00 Pulse Ox 94 L 04/05/18 05:00 Intake & Output 04/04/18 04/05/18 04/05/18 18:59 06:59 18:59 Intake Total 200 1180 Balance 200 1180 Intake: Intake, IV Titration 200 Amount DAPTOmycin 500 mg In 50 Sodium Chloride 0.9% 50 ml @ 100 mls/hr IVPB Q24H [facility] Rx#:[id number] Levofloxacin 750Mg-D5w 150 Pmx 750 mg In Dextrose/ Water 1 150ml.bag @ 100 mls/hr IVPB Q24H [facility] Rx#: [id number] Oral 1180 Other: Voiding Method Toilet Toilet # Voids 2 - Labs CBC & Chem 7: 04/03/18 07:28 04/03/18 07:28 Labs: Microbiology - Last 24 Hours (Table) 03/29/18 09:34 Blood Culture - Final Blood No Growth after 144 hours 03/29/18 09:10 Blood Culture - Final Blood No Growth after 144 hours Assessment and Plan Plan: Assessment: 1. Euvolemic hyponatremia secondary to SIADH. Sodium level 132 as of April 03. 2. MRSA bacteremia maintained on IV antibiotics. 3. Mild acute kidney injury mostly prerenal secondary to hypotension. Creatinine 1.18 as of April 03. 4. Benign hypertension. Blood pressures have run in the lower side. Dose of antihypertensives was decreased over the weekend. Plan: Encourage oral intake. Repeat electrolytes in the morning.
[2018-04-05] MEDS: DAPTOmycin 500 MG in SODIUM CHLORIDE 0.9% 50 ML IVPB SCH (10:57)
[2018-04-05] MEDS: FOLIC ACID 1 MG TAB PO SCH ×2 (12:40→16:40)
[2018-04-05] MEDS: MULTIVITAMINS, THERA 1 EACH TAB PO SCH ×2 (12:40→16:41)
[2018-04-05] MEDS: THIAMINE 100 MG TAB PO SCH ×2 (12:40→16:41)
[2018-04-05] MEDS: MONTELUKAST 10 MG TAB PO SCH (20:16)
[2018-04-05] MEDS: ASPIRIN 81 MG PO SCH (20:16)
[2018-04-05] MEDS: CARBIDOPA-LEVODOPA 25-100 MG 1 EACH TAB PO SCH (20:17)
--- NOTE | 2018-04-05 20:24 | PN ---
PROGRESS NOTE DATE OF SERVICE: 04/05/2018 This 68-year-old woman who was admitted with acute UTI with sepsis also had MRSA sepsis. The case finishing machine adjuster and long term care social worker are planning for her discharge. No chest pain. No palpitations. No fever. The patient is feeling slightly nauseous today. On exam, alert and oriented x2. Pulse is 102, blood pressure 115/61, respiration 16, temperature 97.9, pulse ox 94% on room air. HEENT: Conjunctivae normal. Oral mucosa moist. NECK: No jugular venous distention. No carotid bruit. No lymph node enlargement. CARDIOVASCULAR SYSTEM: S1, S2 muffled. RESPIRATORY SYSTEM: Breath sounds diminished at the bases. No rhonchi. No crackles. ABDOMEN: Soft, non-tender. No mass palpable. LEGS: No edema. No swelling. NERVOUS SYSTEM: No focal deficit. LABS: WBC 6.2, hemoglobin 10, sodium 132, creatinine 1.18. ASSESSMENT: 1. Acute urinary tract infection with sepsis, present on admission. 2. Methicillin-resistant Staphylococcus aeruginosa sepsis. 3. Possible acute gastritis. 4. Chronic pain syndrome with recently inserted pain pump on the left anterior abdominal wall by Dr. Dyson. 5. Leukocytosis secondary to sepsis. 6. Hyponatremia, on gentle hydration. 7. Hypokalemia, improved. 8. Gait dysfunction. 9. History of asthma. 10.History of congestive heart failure. 11.History of cerebrovascular accident, transient ischemic attack. 12.History of fibromyalgia. 13.History of gastroesophageal reflux disease. 14.Hypertension. 15.Hyperlipidemia. 16.History of degenerative joint disease. 17.Hypothyroidism. 18.History of cardiomyopathy. 19.Anxiety, depression, panic disorder. RECOMMENDATIONS AND DISCUSSION: I recommend to continue current medication, continue with symptomatic treatment, continue with the antibiotics. We had a detailed discussion with Dr. Dyson and Infectious Disease. The pain pump will be kept now with IV antibiotics and continue to monitor. If the patient is not improving in the near future, the pain pump may have to be removed, and for that purpose the patient may have to be sent to [facility] because of the multiple complex medical issues involved, per Dr. Dyson. Continue to monitor. Currently for the nausea we will provide some symptomatic treatment. Prognosis guarded because of multiple complex medical issues. Further recommendations to follow. MMODL / IJN: [id number] /
--- NOTE | 2018-04-05 22:13 | P.PN ---
Subjective Progress Note Date: 04/05/18 68-year-old female who has a extensive past medical history including a history of TIA, fibromyalgia, obesity treated by [facility] with adequate success, and severe back pain. She's undergone multiple procedures in the past for her back and several years ago had a spinal cord stimulator placed. She had modestly good control of her pain with this device but eventually broke and was no longer effective. Because of her severe and ongoing back pain she was evaluated and had a trial of a intrathecal pain pump. She had good results and consequently the pain pump was officially placed last month. She was having relatively good control of her pain that she started to feel very poorly. She had fevers and presented to a local hospital. There was concerns because she had fever she was infection of her pain pump was transferred to the facility where it was implanted. Those records are available for review. She was seen by infectious diseases and the implanting surgeon. Imaging studies reveal evidence of the fluid collection near the implant and aspiration was obtained which failed to reveal evidence of underlying infection. No cultures were noted be positive from the local hospital or the outside hospital when cultures were obtained. The patient or continue to feel worse over time it was progressive fatigue and malaise and fever she presented to our emergency center for further evaluation. Her neurologist could not be reached and the neurologist on-call has been brought in and pain management services have also been requested. Infectious diseases consultation was requested because of 101.3 fever and concerns to infection of her pump. At the time the consult is called there is evidence of a positive blood culture. 03/29/2018 patient continues to feel poorly. Still has fever fatigue and malaise. 04/01/2018 fever has improved some improvement of overall status. Neurologist is out of town but opportunity to speak with him has occurred 04/05/2018 reveals the patient be feeling somewhat better. Her pain is near her baseline. As noted there is a positive blood culture with only one has been noted. Has had a good clinical response to antibiotic therapy. His forward to going to home. Objective - Vital Signs Vital signs: Vital Signs Temp 98 F 04/05/18 14:13 Pulse 92 04/05/18 14:13 Resp 16 04/05/18 14:13 BP 106/62 04/05/18 14:13 Pulse Ox 96 04/05/18 14:13 Intake & Output 04/05/18 04/05/18 04/06/18 06:59 18:59 06:59 Intake Total 1180 Balance 1180 Weight 72.575 kg Intake: Oral 1180 Other: Voiding Method Toilet Toilet # Voids 2 2 - Exam Pleasant 68-year-old woman who currently is modestly comfortable and relates her fever has improved. HEENT: Anicteric conjunctiva are pink and moist nasal mucosa grossly intact without significant lesions, there is no thrush. Neck: The neck is supple without significant lymphadenopathy or thyromegaly. Lungs: Good bilateral air entry without significant crackles or wheezing. There is no significant bronchial sounds. There is no egophony or dullness. Heart: Regular rate and rhythm with an audible S1-S2, no S3 no S4. There is no significant murmur click or rub, PMI was nondisplaced. Abdomen: Positive bowel sounds soft and nontender without palpable masses or organomegaly. There was no guarding or rebound. Extremities: The upper extremities have excellent pulses they are symmetric, no significant petechiae or telangiectasia. No splinter hemorrhages were noted. Lower extremities have trace bilateral lower extremity edema that is without change. Pulses are 2+ and symmetric Neuro: Awake alert oriented to person place and time. There are no acute new gross focal sensory motor deficits. The implant site for the epidural pain pump in the abdominal wall was intact without significant erythema. The posterior incision appears to be modestly well healed it has minimal erythema is not grossly fluctuant and there is no expressible purulence. The prior spinal cord stimulator is palpable above the left buttocks and is tender to manipulation but it is not fluctuant. The rest of skin is without rash or breakdown. - Labs CBC & Chem 7: 04/03/18 07:28 04/03/18 07:28 Labs: Laboratory Results WBC 6.4 k/uL (3.8-10.6) 04/03/18 07:28 RBC 3.58 m/uL (3.80-5.40) L 04/03/18 07:28 Hgb 10.0 gm/dL (11.4-16.0) L 04/03/18 07:28 Hct 30.1 % (34.0-46.0) L 04/03/18 07:28 MCV 84.0 fL (80.0-100.0) 04/03/18 07:28 MCH 28.0 pg (25.0-35.0) 04/03/18 07:28 MCHC 33.3 g/dL (31.0-37.0) 04/03/18 07:28 RDW 13.3 % (11.5-15.5) 04/03/18 07:28 Plt Count 331 k/uL (150-450) 04/03/18 07:28 Neutrophils % 59 % 04/03/18 07:28 Lymphocytes % 29 % 04/03/18 07:28 Monocytes % 6 % 04/03/18 07:28 Eosinophils % 4 % 04/03/18 07:28 Basophils % 0 % 04/03/18 07:28 Neutrophils # 3.8 k/uL (1.3-7.7) 04/03/18 07:28 Lymphocytes # 1.8 k/uL (1.0-4.8) 04/03/18 07:28 Monocytes # 0.4 k/uL (0-1.0) 04/03/18 07:28 Eosinophils # 0.3 k/uL (0-0.7) 04/03/18 07:28 Basophils # 0.0 k/uL (0-0.2) 04/03/18 07:28 ESR 54 mm/hr (0-20) H 03/28/18 10:00 PT 11.0 sec (9.0-12.0) 04/02/18 09:39 INR 1.1 (<1.2) 04/02/18 09:39 Sodium 132 mmol/L (137-145) L 04/03/18 07:28 Potassium 3.7 mmol/L (3.5-5.1) 04/03/18 07:28 Chloride 94 mmol/L (98-107) L 04/03/18 07:28 Carbon Dioxide 26 mmol/L (22-30) 04/03/18 07:28 Anion Gap 12 mmol/L 04/03/18 07:28 BUN 15 mg/dL (7-17) 04/03/18 07:28 Creatinine 1.18 mg/dL (0.52-1.04) H 04/03/18 07:28 Est GFR (CKD-EPI)AfAm 54 (>60 ml/min/1.73 sqM) 09/15/18 07:28 Est GFR (CKD-EPI)NonAf 47 (>60 ml/min/1.73 sqM) 04/03/18 07:28 Glucose 89 mg/dL (74-99) 04/03/18 07:28 Plasma Lactic Acid Anjel 1.5 mmol/L (0.7-2.0) 03/26/18 18:38 Calcium 9.4 mg/dL (8.4-10.2) 04/03/18 07:28 Total Bilirubin 0.7 mg/dL (0.2-1.3) 03/26/18 17:56 AST 24 U/L (14-36) 03/26/18 17:56 ALT 30 U/L (9-52) 03/26/18 17:56 Alkaline Phosphatase 83 U/L (38-126) 03/26/18 17:56 Total Creatine Kinase 135 U/L (30-135) 03/26/18 17:56 CK-MB (CK-2) 3.4 ng/mL (0.0-2.4) H 03/26/18 17:56 CK-MB (CK-2) Rel Index 2.5 03/26/18 17:56 Troponin I <0.012 ng/mL (0.000-0.034) 03/26/18 17:56 Total Protein 7.7 g/dL (6.3-8.2) 03/26/18 17:56 Albumin 4.4 g/dL (3.5-5.0) 03/26/18 17:56 Urine Color Yellow 03/26/18 19:18 Urine Appearance Cloudy (Clear) H 03/26/18 19:18 Urine pH 6.0 (5.0-8.0) 03/26/18 19:18 Ur Specific [place] 1.017 (1.001-1.035) 03/26/18 19:18 Urine Protein 2+ (Negative) H 03/26/18 19:18 Urine Glucose (UA) Negative (Negative) 03/26/18 19:18 Urine Ketones Trace (Negative) H 03/26/18 19:18 Urine Blood Small (Negative) H 03/26/18 19:18 Urine Nitrite Negative (Negative) 03/26/18 19:18 Urine Bilirubin Negative (Negative) 03/26/18 19:18 Urine Urobilinogen 2.0 mg/dL (<2.0) 03/26/18 19:18 Ur Leukocyte Esterase Large (Negative) H 03/26/18 19:18 Urine RBC 54 /hpf (0-5) H 03/26/18 19:18 Urine WBC 147 /hpf (0-5) H 03/26/18 19:18 Urine WBC Clumps Few /hpf (None) H 03/26/18 19:18 Ur Squamous Epith Cells 1 /hpf (0-4) 03/26/18 19:18 Urine Bacteria Moderate /hpf (None) H 03/26/18 19:18 Hyaline Casts 8 /lpf (0-2) H 03/26/18 19:18 Urine Mucus Many /hpf (None) H 03/26/18 19:18 Urine Yeast (Budding) Moderate /hpf (None) H 03/26/18 19:18 Urine Osmolality 487 mosm/kg (50-1400) 03/27/18 10:50 Ur Random Sodium 10 mmol/L 03/27/18 10:50 Microbiology 03/29/18 09:34 Blood Blood Culture - Final No Growth after 144 hours 03/29/18 09:10 Blood Blood Culture - Final No Growth after 144 hours 03/26/18 18:38 Blood Blood Culture Gram Stain - Preliminary 03/26/18 18:38 Blood Blood Culture - Final Methicillin resist S. aureus 03/26/18 10:50 Urine,Voided Urine Culture - Final 03/26/18 18:38 Blood Blood Culture - Final Assessment and Plan (1) Fever Current Visit: Yes Status: Acute Code(s): R50.9 - FEVER, UNSPECIFIED SNOMED Code(s): 777413411 (2) Gram-positive cocci bacteremia Narrative/Plan: 68-year-old female presents to hospital with weakness and feeling poorly and having fever at home. She is a very complex past medical history regarding her chronic back pain with history of a prior spinal cord stimulator that had failed. In February she had a epidural pain pump applied the trial went well and then at follow-up, pump was applied she's developed good control of her pain. Now presents feeling poorly and has been noticed that she has fever, leukocytosis and with evidence of possible cultures the infectious diseases consultation was requested. The the laboratory is now reporting the Gram- positive cocci. Outside data is reviewed which shows the imaging studies with a fluid collection around the pain pump this was aspirated the outside hospital and cultures were negative. Blood cultures at the [facility] in the outside hospital were also negative. She's now developed what appears to be staph aureus bacteremia and with her many ALLERGIES daptomycin is initiated. Follow-up cultures are requested. The patient's neurologist Dr. Dyson has been consulted and pain management has also been requested. Fortunately at this time she has modestly comfortable. She was having some difficulty with urgency of urination and stool yesterday. She went to use the bathroom but the roommate was in the bathroom in counseling she walked in the hallway looking for bathroom suffering a fall. Computed tomography scan of her head was performed without acute bleed or other abnormality. Fortunately not feeling poorly at this time. Depending on the findings she made need transfer to the tertiary center for evaluation and removal of the pain pump, it is still the most likely etiology of the current staph aureus bacteremia. Echocardiogram has been requested also. 03/29/2018 patient still feels poorly but better than yesterday. Continues to have pain but is more mobile. She is able to eat some solids without significant nausea or emesis. Neurological evaluation is still in process, and hopefully will help direct the next best course of therapy regarding the possibility of infected of the pain pump with the MRSA bacteremia being noted. 04/01/2018 reveals the patient to have some improvement. The blood culture is positive for MRSA however only one is positive so far. This limited bacteremia would make it less likely that the pain pump is infected. Echocardiogram without evidence of significant endocarditis. The patient has many ALLERGIES and is currently being treated with daptomycin therapy with improvement. This will continue to will need outpatient intravenous antibiotic therapy after discharge. The case is discussed with her neurologist and given her rapid resolution of her bacteremia will attempt a course of antibiotic therapy and close follow-up of her pain pump. Will need intravenous access for the IV antibiotic therapy. 04/05/2018 the patient is now having some improvement of her status. Her pain is approached her baseline status. Await final neurological evaluation from her neurologist who implanted her pain pump. Fortunately with a rapid clearance of her bacteremia seems to be much less likely to be an infected implanted device. Current plan will be to treat patient for her MRSA bacteremia for 4 weeks. At the end of antibiotic therapy for any recurrence of her bacteremia and all implanted material will need to be removed. This includes old spinal cord stimulator above the left buttocks. Fortunately follow blood cultures are negative she clinically is improved likely be discharged home tomorrow to complete her course of daptomycin. Current Visit: Yes Status: Acute Code(s): R78.81 - BACTEREMIA SNOMED Code( s): 411412216887
[2018-04-06] MEDS: LEVOTHYROXINE 88 MCG TAB PO SCH (06:23)
[2018-04-06] MEDS: SYMBICORT 160-4.5 MCG INHALER INHALATION SCH (07:49)
[2018-04-06 08:35] LABS: Anion Gap 11 mmol/L; Blood Urea Nitrogen 11 mg/dL (7-17); Calcium 8.9 mg/dL (8.4-10.2); Carbon Dioxide 25 mmol/L (22-30); Chloride 97 mmol/L (98-107); Glucose 94 mg/dL (74-99); Magnesium 1.4 mg/dL (1.6-2.3); Potassium 3.5 mmol/L (3.5-5.1); Sodium 133 mmol/L (137-145)
[2018-04-06] MEDS: ACETAMINOPHEN TAB 325 MG TAB PO PRN (09:21)
[2018-04-06] MEDS: ASCORBIC ACID 500 MG TAB PO SCH (09:55)
[2018-04-06] MEDS: LOSARTAN 50 MG TAB PO SCH (09:55)
[2018-04-06] MEDS: CHOLECALCIFEROL 1,000 UNIT TAB PO SCH (09:56)
[2018-04-06] MEDS: CLOPIDOGREL 75 MG TAB PO SCH (09:56)
[2018-04-06] MEDS: DULoxetine HCL 60 MG CAPSULE.DR PO SCH (09:58)
[2018-04-06] MEDS: cycloSPORINE 0.05% OPHTH 0.4 ML DROPERETTE BOTH EYES SCH (09:58)
[2018-04-06] MEDS: FERROUS SULFATE 325 MG TAB PO SCH (09:58)
[2018-04-06] MEDS: METOPROLOL TARTRATE 50 MG TAB PO SCH (09:59)
[2018-04-06] MEDS: valACYclovir HCL 1,000 MG TABLET PO SCH (09:59)
[2018-04-06] MEDS: HEPARIN SODIUM,PORCINE 5,000 UNIT/ML 1 ML VIAL SQ SCH (10:00)
[2018-04-06] MEDS: PANTOPRAZOLE 40 MG/10 ML VIAL IVP SCH (10:00)
[2018-04-06] MEDS ORDERED: POTASSIUM CHLORIDE ER 20 MEQ TAB.ER PO STA (10:45)
[2018-04-06] MEDS: DAPTOmycin 500 MG in SODIUM CHLORIDE 0.9% 50 ML IVPB SCH (10:52)
[2018-04-06] MEDS: FOLIC ACID 1 MG TAB PO SCH (11:06)
[2018-04-06] MEDS: THIAMINE 100 MG TAB PO SCH (11:06)
[2018-04-06] MEDS: MULTIVITAMINS, THERA 1 EACH TAB PO SCH (11:06)
--- NOTE | 2018-04-06 11:14 | P.PN ---
Subjective Patient is seen in follow-up for hyponatremia which is due to SIADH. Sodium level stable. Otherwise no active complaints. No diarrhea. Denies chest pain or shortness of breath. Currently being treated for MRSA bacteremia. Vital signs are stable. General: The patient appeared well nourished and normally developed. HEENT: Head exam is unremarkable. Neck is without jugular venous distension. LUNGS: Lungs are clear to auscultation and percussion. Breath sounds decreased. HEART: Rate and Rhythm are regular. First and second heart sounds normal. No murmurs, rubs or gallops. ABDOMEN: Abdominal exam reveals normal bowel sounds. Non-tender and non- distended. No evidence of peritonitis. EXTREMITITES: No clubbing, cyanosis, or edema. Objective - Vital Signs Vital signs: Vital Signs Temp 99.1 F 04/06/18 05:00 Pulse 92 04/06/18 05:00 Resp 18 04/06/18 05:00 BP 104/69 04/06/18 05:00 Pulse Ox 96 04/05/18 21:00 Intake & Output 04/05/18 04/06/18 04/06/18 18:59 06:59 18:59 Intake Total 960 Balance 960 Weight 72.575 kg Intake: Oral 960 Other: Voiding Method Toilet Toilet Toilet # Voids 2 1 - Labs CBC & Chem 7: 04/03/18 07:28 04/06/18 07:28 Labs: Abnormal Lab Results - Last 24 Hours (Table) 04/06/18 Range/Units 07:28 Sodium 133 L (137-145) mmol/L Chloride 97 L (98-107) mmol/L Magnesium 1.4 L (1.6-2.3) mg/dL Assessment and Plan Plan: Assessment: 1. Euvolemic hyponatremia secondary to SIADH. Sodium level stable at 133 today. 2. MRSA bacteremia maintained on IV antibiotics. 3. Mild acute kidney injury mostly prerenal secondary to hypotension. Creatinine 1.18 as of April 03. 4. Benign hypertension. Blood pressures have run in the lower side. Dose of antihypertensives was decreased over the weekend. Improved. 5. Hypomagnesemia from poor oral intake. 6. Hypokalemia from poor oral intake. Plan: Encourage oral intake. Repeat electrolytes in the morning. Replace potassium. 40 mEq today. Replace magnesium. 2 g IV today. Add oral Mag-Ox once daily.
[2018-04-06] MEDS ORDERED: LEVOFLOXACIN 750MG-D5W PMX 750 MG in DEXTROSE/WATER 1 150ML.BAG IVPB SCH (12:00)
[2018-04-06] MEDS ORDERED: LEVOFLOXACIN 750 MG TAB PO SCH (12:00)
[2018-04-06 14:51] VITALS: BP 117/61; PULSE 86; RESP 14; TEMP 97.6
[2018-04-06] MEDS: ONDANSETRON 4 MG TAB PO PRN (16:29)
[2018-04-07] MEDS ORDERED: MAGNESIUM OXIDE 400 MG TAB PO SCH (09:00)
--- NOTE | 2018-04-08 07:37 | CDI ---
Last Revision, June 2017 Documentation Clarification Form Date: 04/08/18 From: Radha Scott Britta Lucero, Traffic Division Commanding Officer Hours-8:30 am & 5 pm MAbimael Admit Date: 03/26/2018 8:12:00 PM Patient Name: Priya Waterman Visit Number: [id number] Discharge Date: 04/06/18 ATTENTION: The Clinical Documentation Specialists (CDI) and [facility] Coding Staff appreciate your assistance in clarifying documentation. Please respond to the clarification below the line at the bottom and electronically sign. The CDI & [facility] Coding staff will review the response and follow-up if needed. Please note: Queries are made part of the Legal Health Record. If you have any questions, please contact the author of this message via ITS. Samuel Reddy MD Hx of CHF History/Risk Factors: HTN w CKD,sepsis, UTI VS/Pulse OX: T-98, P-95, R-16, BP-140/77, O2-97 BNP: none Echocardiogram Results: EF between 45-50% Chest X Ray: No active cardiopulmonary disease. Treatment:Lasix 20 mg po-once, Lasix 40 mg po once In your professional opinion, can you please clarify the acuity and type of CHF if known? Chronic Systolic Heart Failure: Chronic Diastolic Heart Failure: Chronic Systolic & Diastolic Heart Failure: Unable to Determine Other, please specify Please continue to document in your progress notes and discharge summary in order to capture severity of illness and risk of mortality. Include clinical findings that support your diagnosis. MTDD
--- NOTE | 2018-04-20 12:41 | P.DS ---
Providers Date of admission: 03/26/18 20:12 Expected date of discharge: 04/06/18 Attending physician: Samuel Dunn Consults: 03/26/18 20:12 Consult Physician Urgent Consulting Provider: Pepe Dyson Consult Reason/Comments: pain pump Do you want consulting provider notified?: Yes 03/26/18 23:22 Consult Physician Routine Consulting Provider: Lolita Rodriguez Consult Reason/Comments: hyponatremia Do you want consulting provider notified?: Yes 03/27/18 15:42 Consult Physician Urgent Consulting Provider: Theodore De Los Santos Consult Reason/Comments: AMS sepsis Do you want consulting provider notified?: Yes 03/28/18 08:00 Consult Physician Urgent Consulting Provider: Mendez Krishna Consult Reason/Comments: Cryptogenic sepsis and possible FUO. Do you want consulting provider notified?: Yes Primary care physician: Kaur Cabello Hospital Course: Discharge diagnosis MRSA septicemia. Currently on daptomycin. Recent urinary tract infection. Fibromyalgia and chronic pain syndrome Status post recent Left anterior abdominal wall pain pump by Dr. Dyson Hyponatremia due to SIADH Gait dysfunction and medical debility History of CVA/TIA GERD Hypertension Hyperlipidemia Osteoarthritis Objective sleep apnea on CPAP/BiPAP at home Hypothyroidism Hypomagnesemia History of frequent falls, bilateral weakness from CVAs and loss of equilibrium also had bilateral facial droops that resolved History of CVA 6 and TIAs multiple Diabetes insipidus Dear joint disease Chronic kidney disease stage III Iron deficiency anemia History of bariatric surgery DVT prophylaxis Hospital course Patient is a 68-year-old female with a known history of multiple medical problems including CVA/TIA, fibromyalgia, GERD, asthma, osteoarthritis, obstructive sleep apnea on CPAP/BiPAP at home, hypothyroidism and multiple other medical problems was admitted to the hospital admitted to the hospital with acute urinary tract infection and MRSA bacteremia. Currently patient is being treated with daptomycin. Patient was seen by PT OT. Patient does not qualify for rehab transfer. Patient will be discharged home to follow at Center for outpatient IV antibiotics in the form of daptomycin as per ID recommendations. Patient is hematologically stable. Normoactive overnight issues. Patient is being discharged home today. Discharge physical examination was done and vitals reviewed. Patient Condition at Discharge: Good Plan - Discharge Summary Discharge Rx Participant: Yes New Discharge Prescriptions: New Folic Acid 1 mg PO DAILY@1200 #30 tab Thiamine [Vitamin B-1] 100 mg PO DAILY@1200 #30 tab Continue Montelukast [Singulair] 10 mg PO HS Levothyroxine Sodium [Synthroid] 88 mcg PO QAM Clopidogrel [Plavix] 75 mg PO DAILY Metoprolol Tartrate [Lopressor] 50 mg PO BID DULoxetine HCL [Cymbalta] 60 mg PO BID Fluticasone/Salmeterol [Advair 500-50 Diskus] 1 puff INHALATION RT-BID valACYclovir HCL [Valtrex] 1,000 mg PO DAILY PRN PRN Reason: Cold Sores Aspirin 81 mg PO HS Ondansetron HCl [Zofran] 8 mg PO Q12HR PRN PRN Reason: Nausea cycloSPORINE [Restasis] 1 drops BOTH EYES BID Vitamin B Complex 1 cap PO DAILY Biotin 5 mg PO DAILY Ferrous Sulfate [Feosol] 325 mg PO DAILY Ascorbic Acid [Vitamin C] 1,000 mg PO DAILY Cholecalciferol [Vitamin D3] 5,000 unit PO DAILY Losartan Potassium 100 mg PO DAILY Levalbuterol Hfa Inhaler [Xopenex Hfa Inhaler] 2 puff INHALATION RT-Q6H PRN PRN Reason: Shortness Of Breath EPINEPHrine [Auvi-Q] 0.3 mg IM ONCE PRN PRN Reason: Allergic Reaction Carbidopa-Levodopa 25-100 mg [Sinemet 25-100 mg] 1 tab PO HS Bisacodyl 5 mg PO DAILY PRN PRN Reason: Constipation amLODIPine [Norvasc] 10 mg PO BID No Action Multivitamins, Thera [Multivitamin (formulary)] 1 tab PO DAILY@1200 DAPTOmycin [Cubicin] 500 mg IV DAILY #8 bag Discharge Medication List Clopidogrel [Plavix] 75 mg PO DAILY 01/04/14 [History] DULoxetine HCL [Cymbalta] 60 mg PO BID 01/04/14 [History] Fluticasone/Salmeterol [Advair 500-50 Diskus] 1 puff INHALATION RT-BID 01/04/14 [History] Levothyroxine Sodium [Synthroid] 88 mcg PO QAM 01/04/14 [History] Metoprolol Tartrate [Lopressor] 50 mg PO BID 01/04/14 [History] Montelukast [Singulair] 10 mg PO HS 01/04/14 [History] Aspirin 81 mg PO HS 02/07/14 [History] valACYclovir HCL [Valtrex] 1,000 mg PO DAILY PRN 02/07/14 [History] Ondansetron HCl [Zofran] 8 mg PO Q12HR PRN 02/21/15 [History] Vitamin B Complex 1 cap PO DAILY 02/21/15 [History] cycloSPORINE [Restasis] 1 drops BOTH EYES BID 02/21/15 [History] Biotin 5 mg PO DAILY 04/26/15 [History] Ferrous Sulfate [Feosol] 325 mg PO DAILY 04/26/15 [History] Ascorbic Acid [Vitamin C] 1,000 mg PO DAILY 05/13/16 [History] Bisacodyl 5 mg PO DAILY PRN 03/26/18 [History] Carbidopa-Levodopa 25-100 mg [Sinemet 25-100 mg] 1 tab PO HS 03/26/18 [History] Cholecalciferol [Vitamin D3] 5,000 unit PO DAILY 03/26/18 [History] EPINEPHrine [Auvi-Q] 0.3 mg IM ONCE PRN 03/26/18 [History] Levalbuterol Hfa Inhaler [Xopenex Hfa Inhaler] 2 puff INHALATION RT-Q6H PRN 02/03 [History] Losartan Potassium 100 mg PO DAILY 03/26/18 [History] amLODIPine [Norvasc] 10 mg PO BID 03/26/18 [History] Folic Acid 1 mg PO DAILY@1200 #30 tab 04/02/18 [Rx] Thiamine [Vitamin B-1] 100 mg PO DAILY@1200 #30 tab 04/02/18 [Rx] Multivitamins, Thera [Multivitamin (formulary)] 1 tab PO DAILY@1200 04/06/18 [ History] DAPTOmycin [Cubicin] 500 mg IV DAILY #8 bag 04/08/18 [Rx] Follow up Appointment(s)/Referral(s): Lolita Rodriguez MD [STAFF PHYSICIAN] - 04/20/18 12:20 pm Kaur Cabello MD [Primary Care Provider] - 04/13/18 1:00 pm Mendez Krishna MD [STAFF PHYSICIAN] - 04/21/18 9:30 am Pepe Dyson MD [STAFF PHYSICIAN] - 2 Weeks (office will call patient with appointment date and time.) Ambulatory/Diagnostic Orders: Miscellaneous Lab Order [LAB.AMB] Location: None Selected Basic Metabolic Panel [LAB.AMB] Location: None Selected Complete Blood Count w/diff [LAB.AMB] Location: None Selected Patient Instructions/Handouts: Thiamine (By mouth), Folic Acid (By mouth), Multivitamins, Adult Formula (By mouth), Daptomycin (By injection), MRSA ( Methicillin-Resistant Staphylococcus Aureus) (DC), Urinary Tract Infection in Women (DC), Sepsis (GEN) Activity/Diet/Wound Care/Special Instructions: Accredited Home Care - [facility] antibiotic time set up for 10:00am on Thursday04/07/18 - For questions please call the hospital main number and ask for the [facility]. 1200 fluid restrictions/24hr Discharge Disposition: HOME WITH HOME HEALTH SERVICES
== END 2018-04-06 17:30 | disposition home health service (06) | DRG 871 ==
LOC: EC 16:04 → 5MS5E 20:12
PROVIDERS: ADMIT Hospitalist; ATTEND Hospitalist
PROC: 05HY33Z Insertion of Infusion Device into Upper Vein, Percutaneous Approach (ICD-10-PCS; principal; 2018-04-02 13:00)
DX: A41.02 Sepsis due to Methicillin resistant Staphylococcus aureus (principal); G93.41 Metabolic encephalopathy; I69.954 Hemiplegia and hemiparesis following unspecified cerebrovascular disease affecting left non-dominant side; E23.2 Diabetes insipidus; I42.9 Cardiomyopathy, unspecified; E22.2 Syndrome of inappropriate secretion of antidiuretic hormone; N39.0 Urinary tract infection, site not specified; N17.9 Acute kidney failure, unspecified; N18.4 Chronic kidney disease, stage 4 (severe); I95.9 Hypotension, unspecified; E83.52 Hypercalcemia; E83.42 Hypomagnesemia; E86.1 Hypovolemia; S09.90XA Unspecified injury of head, initial encounter; D64.9 Anemia, unspecified; K29.00 Acute gastritis without bleeding; S00.03XA Contusion of scalp, initial encounter; R26.9 Unspecified abnormalities of gait and mobility; E87.6 Hypokalemia; R40.2142 Coma scale, eyes open, spontaneous, at arrival to emergency department; R40.2362 Coma scale, best motor response, obeys commands, at arrival to emergency department; R40.2252 Coma scale, best verbal response, oriented, at arrival to emergency department; M51.36 Other intervertebral disc degeneration, lumbar region; G89.4 Chronic pain syndrome; E78.5 Hyperlipidemia, unspecified; J45.909 Unspecified asthma, uncomplicated; G47.30 Sleep apnea, unspecified; M79.7 Fibromyalgia; E03.9 Hypothyroidism, unspecified; F41.0 Panic disorder [episodic paroxysmal anxiety]; F32.9 Major depressive disorder, single episode, unspecified; F41.9 Anxiety disorder, unspecified; K21.9 Gastro-esophageal reflux disease without esophagitis; M19.91 Primary osteoarthritis, unspecified site; E66.9 Obesity, unspecified; Z68.30 Body mass index [BMI] 30.0-30.9, adult; Z71.3 Dietary counseling and surveillance; Z79.02 Long term (current) use of antithrombotics/antiplatelets; Z79.82 Long term (current) use of aspirin; Z79.890 Hormone replacement therapy; Z79.51 Long term (current) use of inhaled steroids; Z79.899 Other long term (current) drug therapy; Z87.442 Personal history of urinary calculi; Z87.891 Personal history of nicotine dependence; Z98.84 Bariatric surgery status; Z90.49 Acquired absence of other specified parts of digestive tract; Z90.710 Acquired absence of both cervix and uterus; Z98.51 Tubal ligation status; Z97.8 Presence of other specified devices; Z96.60 Presence of unspecified orthopedic joint implant; Z86.14 Personal history of Methicillin resistant Staphylococcus aureus infection; Z86.72 Personal history of thrombophlebitis; Z98.42 Cataract extraction status, left eye; Z98.41 Cataract extraction status, right eye; Z88.6 Allergy status to analgesic agent; Z88.1 Allergy status to other antibiotic agents; Z91.041 Radiographic dye allergy status; Z91.02 Food additives allergy status; Z91.011 Allergy to milk products; Z88.0 Allergy status to penicillin; Z91.013 Allergy to seafood; Z88.2 Allergy status to sulfonamides; Z88.7 Allergy status to serum and vaccine; Z88.8 Allergy status to other drugs, medicaments and biological substances; Z91.018 Allergy to other foods; Z91.048 Other nonmedicinal substance allergy status; Z83.2 Family history of diseases of the blood and blood-forming organs and certain disorders involving the immune mechanism; Z82.3 Family history of stroke; W19.XXXA Unspecified fall, initial encounter; Y92.238 Other place in hospital as the place of occurrence of the external cause; I50.9 Heart failure, unspecified
CPT/HCPCS: 36415; 36569; 70450; 71046; 76937; 80048; 80053; 81001; 82550; 82553; 83605; 83735; 83935; 84300; 84484; 85025; 85610; 85652; 87040; 87077; 87086; 87186; 93005; 93306; 94640; 96365; 99284

== ENCOUNTER 2018-04-06 20:11 | Inpatient (IN) | payer MEDICARE ==
[2018-04-06] MEDS ORDERED: TOPICAL SKIN ADHESIVE 1 EACH AMP TOPICAL ONE (20:27)
--- NOTE | 2018-04-06 20:56 | ED ---
General Adult HPI - General Chief complaint: Fall Stated complaint: fall Time Seen by Provider: 04/06/18 20:12 Source: patient, family, RN notes reviewed Mode of arrival: EMS Limitations: no limitations - History of Present Illness Initial comments: Patient is a pleasant 68-year-old female presenting to the emergency department following a fall. Patient walked down 2 steps and then fell. Patient did hurt her left upper arm. Patient did strike her head. Patient does have some neck discomfort. Patient did not lose consciousness. Patient does take Plavix. Patient does have a history of frequent falls. Tetanus immunization is up-to- date. Patient did also sustain a laceration to her right elbow. Patient was just discharged from the hospital today following MRSA infection of an unknown area. - Related Data Home Medications Medication Instructions Recorded Confirmed Clopidogrel [Plavix] 75 mg PO DAILY 01/04/14 04/06/18 DULoxetine HCL [Cymbalta] 60 mg PO BID 01/04/14 04/06/18 Fluticasone/Salmeterol [Advair 1 puff INHALATION RT-BID 01/04/14 04/06/18 500-50 Diskus] Levothyroxine Sodium [Synthroid] 88 mcg PO QAM 01/04/14 04/06/18 Metoprolol Tartrate [Lopressor] 50 mg PO BID 01/04/14 04/06/18 Montelukast [Singulair] 10 mg PO HS 01/04/14 04/06/18 Aspirin 81 mg PO HS 02/07/14 04/06/18 valACYclovir HCL [Valtrex] 1,000 mg PO DAILY PRN 02/07/14 04/06/18 Ondansetron HCl [Zofran] 8 mg PO Q12HR PRN 02/21/15 04/06/18 Vitamin B Complex 1 cap PO DAILY 02/21/15 04/06/18 cycloSPORINE [Restasis] 1 drops BOTH EYES BID 02/21/15 04/06/18 Biotin 5 mg PO DAILY 04/26/15 04/06/18 Ferrous Sulfate [Feosol] 325 mg PO DAILY 04/26/15 04/06/18 Ascorbic Acid [Vitamin C] 1,000 mg PO DAILY 05/13/16 04/06/18 Bisacodyl 5 mg PO DAILY PRN 03/26/18 04/06/18 Carbidopa-Levodopa 25-100 mg 1 tab PO HS 03/26/18 04/06/18 [Sinemet 25-100 mg] Cholecalciferol [Vitamin D3] 5,000 unit PO DAILY 03/26/18 04/06/18 EPINEPHrine [Auvi-Q] 0.3 mg IM ONCE PRN 03/26/18 04/06/18 Levalbuterol Hfa Inhaler [Xopenex 1 - 2 puff INHALATION RT-Q6H PRN 03/26/18 Hfa Inhaler] Losartan Potassium 100 mg PO DAILY 03/26/18 04/06/18 amLODIPine [Norvasc] 10 mg PO BID 03/26/18 04/06/18 Multivitamins, Thera [Multivitamin 1 tab PO DAILY@1200 04/06/18 04/06/18 (formulary)] Previous Rx's Medication Instructions Recorded DAPTOmycin [Cubicin] 500 mg IV DAILY #14 bag 04/02/18 Folic Acid 1 mg PO DAILY@1200 #30 tab 04/02/18 Thiamine [Vitamin B-1] 100 mg PO DAILY@1200 #30 tab 04/02/18 Allergies Allergy/AdvReac Type Severity Reaction Status Date / Time aripiprazole [From Abilify] Allergy Anaphylaxis Verified 04/06/18 20:40 baclofen Allergy Anaphylaxis Verified 04/06/18 20:40 butalbital [From Fioricet] Allergy Rash/Hives Verified 04/06/18 20:40 cefadroxil hydrate Allergy Rash/Hives Verified 04/06/18 20:40 [From Duricef] cefazolin sodium Allergy Anaphylaxis Verified 04/06/18 20:40 [From Kefzol] cephalexin monohydrate Allergy Anaphylaxis Verified 04/06/18 20:40 [From Keflex] ciprofloxacin [From Cipro] Allergy Swelling Verified 04/06/18 20:40 OF THROAT ,RASH AND HIVES ciprofloxacin HCl Allergy Rash/Hives, Verified 04/06/18 20:40 [From Cipro] SWELLING OF THROAT clindamycin HCl Allergy Unknown Verified 04/06/18 20:40 [From Cleocin] clindamycin palmitate HCl Allergy Unknown Verified 04/06/18 20:40 [From Cleocin] clindamycin phosphate Allergy Unknown Verified 04/06/18 20:40 [From Cleocin] dexamethasone [From Decadron] Allergy Anaphylaxis Verified 04/06/18 20:40 dexamethasone sod phosphate Allergy Anaphylaxis Verified 04/06/18 20:40 [From Decadron] ,RASH divalproex sodium Allergy Rash/Hives Verified 04/06/18 20:40 [From Depakote] hydroxyzine HCl [From Atarax] Allergy Unknown Verified 04/06/18 20:40 ibuprofen [From Motrin] Allergy RASH Verified 04/06/18 20:40 ,ITCHING SWELLING OF THROAT influenza virus vaccine, Allergy Anaphylaxis Verified 04/06/18 20:40 specific [Influenza Virus Vacc,Specific] Iodinated Contrast- Oral and Allergy Anaphylaxis Verified 04/06/18 20:40 IV Dye ketorolac tromethamine Allergy Chest Pain Verified 04/06/18 20:40 [From Toradol] lidocaine HCl Allergy Anaphylaxis Verified 04/06/18 20:40 [From Xylocaine] lisinopril Allergy Swelling Verified 04/06/18 20:40 meperidine HCl [From Demerol] Allergy Rash/Hives Verified 04/06/18 20:40 Milk Containing Products Allergy ABDOMINAL Verified 04/06/18 20:40 PAIN NAUSEA AND VOMITING morphine Allergy Vomiting Verified 04/06/18 20:40 Mushroom Allergy Anaphylaxis Verified 04/06/18 20:40 nortriptyline HCl Allergy Unknown Verified 04/06/18 20:40 [From Pamelor] omalizumab [From Xolair] Allergy Anaphylaxis Verified 04/06/18 20:40 Penicillins Allergy Rash/Hives Verified 04/06/18 20:40 pregabalin [From Lyrica] Allergy Rash/Hives Verified 04/06/18 20:40 procaine HCl [From Novocain] Allergy Unknown Verified 04/06/18 20:40 shellfish derived Allergy Anaphylaxis Verified 04/06/18 20:40 sulfamethoxazole Allergy Unknown Verified 04/06/18 20:40 [From Septra] tetracycline [Tetracycline] Allergy Rash/Hives Verified 04/06/18 20:40 theophylline anhydrous Allergy Unknown Verified 04/06/18 20:40 [From Joel-Dur] triamcinolone Allergy Anaphylaxis Verified 04/06/18 20:40 trimethoprim [From Septra] Allergy RASH, Verified 04/06/18 20:40 ITCHING vancomycin Allergy ITCHING Verified 04/06/18 20:40 ,HIVES wheat Allergy Rash/Hives Verified 04/06/18 20:40 yellow dye Allergy Anaphylaxis Verified 04/06/18 20:40 erythromycin base AdvReac Rash/Hives Verified 04/06/18 20:40 fentanyl [From Duragesic] AdvReac Unknown Verified 04/06/18 20:40 NSAIDS (Non-Steroidal AdvReac Unknown Verified 04/06/18 20:40 Anti-Inflamma verapamil AdvReac Rash/Hives Verified 04/06/18 20:40 PAPER TAPE Allergy Rash/BLISTE Uncoded 04/06/18 20:27 RS PERSERATIVE IN ALBUTEROL Allergy Dyspnea Uncoded 04/06/18 20:27 INHALER PU steroids Allergy Rash/Hives Uncoded 04/06/18 20:27 WHITE SUTURE Allergy Swelling Uncoded 04/06/18 20:27 Review of Systems ROS Statement: Those systems with pertinent positive or pertinent negative responses have been documented in the HPI. ROS Other: All systems not noted in ROS Statement are negative. Constitutional: Denies: fever Eyes: Denies: eye pain ENT: Denies: ear pain Respiratory: Denies: cough Cardiovascular: Denies: chest pain Endocrine: Denies: fatigue Gastrointestinal: Denies: abdominal pain Genitourinary: Denies: dysuria Musculoskeletal: Denies: back pain Skin: Denies: rash Neurological: Reports: headache. Denies: weakness Past Medical History Past Medical History: Asthma, Cancer, Chest Pain / Angina, CVA/TIA, Fibromyalgia , GERD/Reflux, Hyperlipidemia, Hypertension, Osteoarthritis (OA), Renal Disease , Sleep Apnea/CPAP/BIPAP, Thyroid Disorder Additional Past Medical History / Comment(s): stage 3 renal failure 30%, stroke X4 - LT SIDE WEAKNESS. cancer Lt leg (replaced with titanium), fibroids, endometriosis, cyst big toe, kidney stones. HAS DIABETES INSIPIDUS,anemia, phlebitis, cardiomyopathy dx December 2015 History of Any Multi-Drug Resistant Organisms: MRSA Date of last positivie culture/infection: 03/26/18 MDRO Source:: BLOOD Past Surgical History: Appendectomy, Back Surgery, Bariatric Surgery, Cholecystectomy, Heart Catheterization, Hysterectomy, Joint Replacement, Orthopedic Surgery, Tubal Ligation Additional Past Surgical History / Comment(s): lithotripsy, bilateral cataract surgery, surgeries in legs for breaking of scar tissue, hand surgery, lapband removal 2012 (implanted 2007), Gastric sleeve ,, pain stimulator, PAIN CLINIC PROCEDURE Past Anesthesia/Blood Transfusion Reactions: Previous Problems w/ Anesthesia Additional Past Anesthesia/Blood Transfusion Reaction / Comment(s): LONGER WAKING UP Past Psychological History: Anxiety, Depression, Panic Disorder Smoking Status: Never smoker Past Alcohol Use History: Rare Past Drug Use History: None Reported - Past Family History Mother Family Medical History: CVA/TIA Daughter(s) Additional Family Medical History / Comment(s): dvt General Exam Limitations: no limitations General appearance: alert, in no apparent distress Head exam: Present: atraumatic Eye exam: Present: normal appearance, PERRL, EOMI. Absent: nystagmus ENT exam: Present: normal oropharynx Neck exam: Present: normal inspection, tenderness (Mild diffuse tenderness) Respiratory exam: Present: normal lung sounds bilaterally Cardiovascular Exam: Present: regular rate, normal rhythm GI/Abdominal exam: Present: soft. Absent: tenderness Extremities exam: Present: full ROM, tenderness (Left upper arm) Back exam: Present: normal inspection. Absent: tenderness, vertebral tenderness Neurological exam: Present: alert, oriented X3, CN II-XII intact. Absent: motor sensory deficit Expanded Neurological exam: Present: protecting the airway Patient oriented to: Present: person, place, time Speech: Present: fluid speech Cranial nerves: EOM's Intact: Normal Motor strength exam: RUE: 5, LUE: 5, RLE: 5, LLE: 5 Eye Response: (4) open spontaneously Motor Response: (6) obeys commands Verbal Response: (5) oriented Psychiatric exam: Present: normal affect, normal mood Skin exam: Present: other (Laceration right elbow, 3 cm) Course Vital Signs 04/06/18 04/06/18 20:22 21:33 Pulse Rate 101 H 99 Respiratory 18 18 Rate Blood Pressure 125/62 136/60 O2 Sat by Pulse 98 99 Oximetry Procedures - Laceration Laceration #1 Consent Obtained: verbal consent Time Out Performed: Yes Indication: laceration Site: upper extremity (Near right lateral elbow) Size (cm): 3 Description: linear Depth: simple, single layer Pre-repair: wound explored, irrigated extensively Type of Sutures: other (Closed with Dermabond) Additional Comments: Wound was closed with Dermabond rather than suture secondary to potential anaphylactic reaction to lidocaine. Medical Decision Making - Medical Decision Making Patient reevaluated and resting comfortably in bed. Patient and daughter are not comfortable with discharge home. They state patient is having difficulty walking. They did speak to Dr. Dyson who recommended we admission and he will consult. Patient will likely need rehab facility. Case was discussed with Dr. Hall, who will admit for Dr. Downs. - Radiology Data Radiology results: report reviewed (Computed tomography scan of the brain shows atrophy. No acute intercranial abnormality. No cervical spine fracture.), image reviewed (X-ray left humerus shows no acute process) Disposition Clinical Impression: Fall, General weakness Disposition: ADMITTED IP TO THIS HOSP Is patient prescribed a controlled substance at d/c from ED?: No Referrals: Kaur Cabello MD [Primary Care Provider] - 1-2 days Decision Time: 22:11
--- NOTE | 2018-04-06 21:30 | CT ---
EXAMINATION TYPE: CT brain catarino triana DATE OF EXAM: 04/06/2018 COMPARISON: CT brain 03/27/2018 HISTORY: trauma, fall CT DLP: 1502.2 mGycm Automated exposure control for dose reduction was used. TECHNIQUE: CT scan of the head and cervical spine are performed without contrast. FINDINGS: Ventricles of normal size. There is no mass effect nor midline shift. There is no sign of intracranial hemorrhage. There is minimal cerebral cortical atrophy. The calvarium is intact. Cervical vertebra have fairly normal alignment. There is mild spurring of the endplates. Posterior el ements are intact. There is mild facet arthropathy. Skull base is intact. IMPRESSION: Mild cerebral atrophy. No acute intracranial abnormality. Minor spondylotic changes in the cervical s pine. No fracture.
--- NOTE | 2018-04-06 21:51 | XR ---
EXAMINATION TYPE: XR humerus LT DATE OF EXAM: 04/06/2018 COMPARISON: NONE HISTORY: Pain TECHNIQUE: 2 views FINDINGS: Elbow joint and shoulder joint appear intact. I see no fracture nor dislocation. IMPRESSION: Negative left humerus exam.
[2018-04-06] MEDS ORDERED: NALOXONE 0.4 MG/ML 1 ML VIAL IV PRN (22:12)
[2018-04-06 22:54] LABS: Basophils % (A) 0 %; Eosinophils # (A) 0.5 k/uL (0-0.7); Eosinophils % (A) 4 %; HCT 27.9 % (34.0-46.0); HGB 9.1 gm/dL (11.4-16.0); Lymphocytes # (A) 0.9 k/uL (1.0-4.8); Lymphocytes % (A) 8 %; MCH 27.5 pg (25.0-35.0); MCHC 32.6 g/dL (31.0-37.0); MCV 84.1 fL (80.0-100.0); Mean Platelet Volume 6.7; Monocytes # (A) 0.5 k/uL (0-1.0); Monocytes % (A) 5 %; Neutrophils # (A) 9.2 k/uL (1.3-7.7); Neutrophils % (A) 82 %; Platelet Count 281 k/uL (150-450); RBC 3.32 m/uL (3.80-5.40); RDW 13.2 % (11.5-15.5); WBC 11.2 k/uL (3.8-10.6)
[2018-04-06 23:13] LABS: ALT 32 U/L (9-52); AST 53 U/L (14-36); Albumin 3.2 g/dL (3.5-5.0); Alkaline Phosphatase 64 U/L (38-126); Anion Gap 11 mmol/L; Blood Urea Nitrogen 11 mg/dL (7-17); Carbon Dioxide 22 mmol/L (22-30); Chloride 95 mmol/L (98-107); Glucose 98 mg/dL (74-99); Magnesium 1.3 mg/dL (1.6-2.3); Potassium 3.9 mmol/L (3.5-5.1); Sodium 128 mmol/L (137-145); Total Bilirubin 0.6 mg/dL (0.2-1.3); Total Protein 5.8 g/dL (6.3-8.2)
[2018-04-06] MEDS ORDERED: SODIUM CHLORIDE 0.9% 500 ML IV STA (23:30)
[2018-04-06] MEDS ORDERED: MAGNESIUM OXIDE 400 MG TAB PO STA (23:30)
[2018-04-06] MEDS ORDERED: LEVOFLOXACIN 750MG-D5W PMX 750 MG in DEXTROSE/WATER 1 150ML.BAG IVPB STA (23:34)
[2018-04-06] MEDS ORDERED: LEVOFLOXACIN 750MG-D5W PMX 750 MG in DEXTROSE/WATER 1 150ML.BAG IVPB SCH (23:45)
--- NOTE | 2018-04-07 00:09 | XR ---
EXAMINATION TYPE: XR chest 2V DATE OF EXAM: 04/06/2018 COMPARISON: 03/26/2018 HISTORY: Weakness TECHNIQUE: Frontal and lateral views of the chest are obtained. FINDINGS: Heart and mediastinum are normal. Lungs are clear. Diaphragm is normal. Bony thorax is int act. There is neurostimulator in the thoracic spine. IMPRESSION: Normal chest. No change.
[2018-04-07 01:59] LABS: Amorphous Sediment,Urine Rare /hpf; Appearance,Urine Clear (Clear); Bacteria,Urine Rare /hpf; Bilirubin,Urine Negative (Negative); Blood,Urine Negative (Negative); Color,Urine Yellow; Glucose,Urine (UA) Negative (Negative); Hyaline Casts,Urine 6 /lpf (0-2); Ketones,Urine Negative (Negative); Leukocyte Esterase,Urine Negative (Negative); Mucus,Urine Rare /hpf; Nitrite,Urine Negative (Negative); Protein,Urine 1+ (Negative); RBC,Urine 4 /hpf (0-5); Squamous Epithelial Cell,Urine 4 /hpf (0-4); Urobilinogen,Urine <2.0 mg/dL (<2.0); WBC,Urine 4 /hpf (0-5)
[2018-04-07] MEDS: MAGNESIUM SULFATE-D5W PMX 1 GM in DEXTROSE/WATER 1 100ML.BAG IVPB ONE ×2 (02:56→05:27)
[2018-04-07] MEDS: SODIUM CHLORIDE 0.9% 1,000 ML IV SCH ×2 (02:56→23:55)
[2018-04-07] MEDS ORDERED: MAGNESIUM SULFATE-D5W PMX 1 GM in DEXTROSE/WATER 1 100ML.BAG IVPB ONE (05:27)
[2018-04-07] MEDS ORDERED: ACETAMINOPHEN TAB 325 MG TAB PO STA (06:52)
[2018-04-07] MEDS ORDERED: EPINEPHRINE 0.3 MG IM PRN (10:53)
[2018-04-07] MEDS ORDERED: ALBUTEROL NEBULIZED 2.5 MG/3 ML INHALATION PRN (10:53)
[2018-04-07] MEDS ORDERED: BISACODYL 5 MG TABLET.DR PO PRN (10:53)
[2018-04-07] MEDS ORDERED: ONDANSETRON 4 MG TAB PO PRN (10:53)
[2018-04-07] MEDS ORDERED: DAPTOmycin 500 MG VIAL IV SCH (11:00)
[2018-04-07] MEDS: DAPTOmycin 500 MG in SODIUM CHLORIDE 0.9% 50 ML IVPB SCH (12:46)
[2018-04-07] MEDS: MULTIVITAMINS, THERA 1 EACH TAB PO SCH (12:49)
[2018-04-07] MEDS: FOLIC ACID 1 MG TAB PO SCH (12:49)
[2018-04-07] MEDS: THIAMINE 100 MG TAB PO SCH (12:49)
--- NOTE | 2018-04-07 16:43 | XR ---
Right hip HISTORY: Trauma and pain 2 views of the right hip correlated prior exam 09/17/2012 Bone mineralization, joint spaces and alignment are maintained. There are vascular calcifications wit hin the pelvis. Soft tissue swelling is present. IMPRESSION: No fracture or dislocation.
[2018-04-07] MEDS: SYMBICORT 160-4.5 MCG INHALER INHALATION SCH (20:02)
[2018-04-07] MEDS: ACETAMINOPHEN TAB 325 MG TAB PO PRN (21:32)
[2018-04-07] MEDS: cycloSPORINE 0.05% OPHTH 0.4 ML DROPERETTE BOTH EYES SCH (21:33)
[2018-04-07] MEDS: ASPIRIN 81 MG PO SCH (21:33)
[2018-04-07] MEDS: CARBIDOPA-LEVODOPA 25-100 MG 1 EACH TAB PO SCH (21:33)
[2018-04-07] MEDS: MONTELUKAST 10 MG TAB PO SCH (21:34)
[2018-04-07] MEDS: DULoxetine HCL 60 MG CAPSULE.DR PO SCH (21:34)
[2018-04-07] MEDS: METOPROLOL TARTRATE 50 MG TAB PO SCH (21:34)
--- NOTE | 2018-04-07 22:14 | P.HPIM ---
History of Present Illness H&P Date: 04/07/18 Chief Complaint: Status post fall and injury Patient is a 68-year-old female with a known history of multiple medical problems including CVA/TIA, fibromyalgia, GERD, asthma, osteoarthritis, obstructive sleep apnea on CPAP/BiPAP at home, hypothyroidism and multiple other medical problems who was discharged from the hospital on 04/06/2018 presented to ER status post fall. Patient walked down 2 steps and then fell. Patient did hurt her right upper arm. Patient did strike her head. Patient does have some neck discomfort. Patient did not lose consciousness. Patient was treated for urinary tract infection and MRSA septicemia as well as hyponatremia and acute kidney injury during previous admission. Patient was discharged with IV antibiotics of daptomycin as per ID recommendations. Patient does have a history of recent pain pump placement. Currently patient denied any fever or chills. No chest pain or shortness of breath. No nausea vomiting or abdominal pain. Patient had chest x-ray, right elbow and CT head and neck was done in the ER. No acute fracture was noted. Review of Systems Constitutional: Patient denies any fever or chills . No generalized weakness or weight loss. Abdomen: Patient denied nausea vomiting and diarrhea and abdominal pain. Cardiovascular: Patient denies any chest pain or short of breath no palpitations. Respiratory: patient denied any cough is from production. No shortness of breath Neurologic: Patient denied any numbness or tingling headache. Musculoskeletal: Patient denies any complaints of joint swelling or deformity. Patient does have some left-sided neck pain and right elbow pain Patient is somewhat poor historian. Past Medical History Past Medical History: Asthma, Cancer, Chest Pain / Angina, CVA/TIA, Fibromyalgia , GERD/Reflux, Hyperlipidemia, Hypertension, Osteoarthritis (OA), Renal Disease , Sleep Apnea/CPAP/BIPAP, Thyroid Disorder Additional Past Medical History / Comment(s): Pt recently admitted to [facility] on 03/26/18 with UTI/sepsis, hyponatremia/SIADH, hypomagnesemia, hypokalemia and bacterial MRSA. Other HX: Frequent falls, bilateral weakness from CVAs and loss of equalibrium-also had bilateral facial droops that resolve, pt states she has had 6 CVAs total, TIAs, L leg bone cancer and entire leg has titanium rods, R knee arthroplasty-pt fell and damaged artificial joint, chronic back pain, carpal tunnel syndrome bilateral elbows/shoulders, DJD, diabetes insipidus, LAUREN with no device since weight loss, CKD stage III, [place] bilaterally, anemia. History of Any Multi-Drug Resistant Organisms: MRSA Date of last positivie culture/infection: 03/26/18 MDRO Source:: BLOOD Past Surgical History: Appendectomy, Back Surgery, Bariatric Surgery, Cholecystectomy, Heart Catheterization, Hysterectomy, Joint Replacement, Orthopedic Surgery, Tubal Ligation Additional Past Surgical History / Comment(s): 04/02/18 PICC line for ABX, Lap band with removal, gastric sleeve, L leg titanium rods, R total knee arthroplasty, bilateral wrist carpal tunnel releases, R great toe surgery to remove a growth, lithotripsy, pain stimulator-nonfunctioning, pain clinic procedures, bilateral cataract removals. Past Anesthesia/Blood Transfusion Reactions: Previous Problems w/ Anesthesia Additional Past Anesthesia/Blood Transfusion Reaction / Comment(s): Slow to wake. Smoking Status: Never smoker - Past Family History Mother Family Medical History: CVA/TIA Daughter(s) Family Medical History: Deep Vein Thrombosis (DVT) Additional Family Medical History / Comment(s): dvt Medications and Allergies Home Medications Medication Instructions Recorded Confirmed Type Clopidogrel [Plavix] 75 mg PO DAILY 01/04/14 04/06/18 History DULoxetine HCL [Cymbalta] 60 mg PO BID 01/04/14 04/06/18 History Fluticasone/Salmeterol [Advair 1 puff INHALATION RT-BID 01/04/14 04/06/18 History 500-50 Diskus] Levothyroxine Sodium [Synthroid] 88 mcg PO QAM 01/04/14 04/06/18 History Metoprolol Tartrate [Lopressor] 50 mg PO BID 01/04/14 04/06/18 History Montelukast [Singulair] 10 mg PO HS 01/04/14 04/06/18 History Aspirin 81 mg PO HS 02/07/14 04/06/18 History valACYclovir HCL [Valtrex] 1,000 mg PO DAILY PRN 02/07/14 04/06/18 History Ondansetron HCl [Zofran] 8 mg PO Q12HR PRN 02/21/15 04/06/18 History Vitamin B Complex 1 cap PO DAILY 02/21/15 04/06/18 History cycloSPORINE [Restasis] 1 drops BOTH EYES BID 02/21/15 04/06/18 History Biotin 5 mg PO DAILY 04/26/15 04/06/18 History Ferrous Sulfate [Feosol] 325 mg PO DAILY 04/26/15 04/06/18 History Ascorbic Acid [Vitamin C] 1,000 mg PO DAILY 05/13/16 04/06/18 History Bisacodyl 5 mg PO DAILY PRN 03/26/18 04/06/18 History Carbidopa-Levodopa 25-100 mg 1 tab PO HS 03/26/18 04/06/18 History [Sinemet 25-100 mg] Cholecalciferol [Vitamin D3] 5,000 unit PO DAILY 03/26/18 04/06/18 History EPINEPHrine [Auvi-Q] 0.3 mg IM ONCE PRN 03/26/18 04/06/18 History Levalbuterol Hfa Inhaler [Xopenex 1 - 2 puff INHALATION RT-Q6H PRN 03/26/18 History Hfa Inhaler] Losartan Potassium 100 mg PO DAILY 03/26/18 04/06/18 History amLODIPine [Norvasc] 10 mg PO BID 03/26/18 04/06/18 History DAPTOmycin [Cubicin] 500 mg IV DAILY #14 bag 04/02/18 04/06/18 Rx Folic Acid 1 mg PO DAILY@1200 #30 tab 04/02/18 04/06/18 Rx Thiamine [Vitamin B-1] 100 mg PO DAILY@1200 #30 tab 04/02/18 04/06/18 Rx Multivitamins, Thera [Multivitamin 1 tab PO DAILY@1200 04/06/18 04/06/18 History (formulary)] Allergies Allergy/AdvReac Type Severity Reaction Status Date / Time aripiprazole [From Abilify] Allergy Anaphylaxis Verified 04/06/18 20:40 baclofen Allergy Anaphylaxis Verified 04/06/18 20:40 butalbital [From Fioricet] Allergy Rash/Hives Verified 04/06/18 20:40 cefadroxil hydrate Allergy Rash/Hives Verified 04/06/18 20:40 [From Duricef] cefazolin sodium Allergy Anaphylaxis Verified 04/06/18 20:40 [From Kefzol] cephalexin monohydrate Allergy Anaphylaxis Verified 04/06/18 20:40 [From Keflex] ciprofloxacin [From Cipro] Allergy Swelling Verified 04/06/18 20:40 OF THROAT ,RASH AND HIVES ciprofloxacin HCl Allergy Rash/Hives, Verified 04/06/18 20:40 [From Cipro] SWELLING OF THROAT clindamycin HCl Allergy Unknown Verified 04/06/18 20:40 [From Cleocin] clindamycin palmitate HCl Allergy Unknown Verified 04/06/18 20:40 [From Cleocin] clindamycin phosphate Allergy Unknown Verified 04/06/18 20:40 [From Cleocin] dexamethasone [From Decadron] Allergy Anaphylaxis Verified 04/06/18 20:40 dexamethasone sod phosphate Allergy Anaphylaxis Verified 04/06/18 20:40 [From Decadron] ,RASH divalproex sodium Allergy Rash/Hives Verified 04/06/18 20:40 [From Depakote] hydroxyzine HCl [From Atarax] Allergy Unknown Verified 04/06/18 20:40 ibuprofen [From Motrin] Allergy RASH Verified 04/06/18 20:40 ,ITCHING SWELLING OF THROAT influenza virus vaccine, Allergy Anaphylaxis Verified 04/06/18 20:40 specific [Influenza Virus Vacc,Specific] Iodinated Contrast- Oral and Allergy Anaphylaxis Verified 04/06/18 20:40 IV Dye ketorolac tromethamine Allergy Chest Pain Verified 04/06/18 20:40 [From Toradol] lidocaine HCl Allergy Anaphylaxis Verified 04/06/18 20:40 [From Xylocaine] lisinopril Allergy Swelling Verified 04/06/18 20:40 meperidine HCl [From Demerol] Allergy Rash/Hives Verified 04/06/18 20:40 Milk Containing Products Allergy ABDOMINAL Verified 04/06/18 20:40 PAIN NAUSEA AND VOMITING morphine Allergy Vomiting Verified 04/06/18 20:40 Mushroom Allergy Anaphylaxis Verified 04/06/18 20:40 nortriptyline HCl Allergy Unknown Verified 04/06/18 20:40 [From Pamelor] omalizumab [From Xolair] Allergy Anaphylaxis Verified 04/06/18 20:40 Penicillins Allergy Rash/Hives Verified 04/06/18 20:40 pregabalin [From Lyrica] Allergy Rash/Hives Verified 04/06/18 20:40 procaine HCl [From Novocain] Allergy Unknown Verified 04/06/18 20:40 shellfish derived Allergy Anaphylaxis Verified 04/06/18 20:40 sulfamethoxazole Allergy Unknown Verified 04/06/18 20:40 [From Septra] tetracycline [Tetracycline] Allergy Rash/Hives Verified 04/06/18 20:40 theophylline anhydrous Allergy Unknown Verified 04/06/18 20:40 [From Joel-Dur] triamcinolone Allergy Anaphylaxis Verified 04/06/18 20:40 trimethoprim [From Septra] Allergy RASH, Verified 04/06/18 20:40 ITCHING vancomycin Allergy ITCHING Verified 04/06/18 20:40 ,HIVES wheat Allergy Rash/Hives Verified 04/06/18 20:40 yellow dye Allergy Anaphylaxis Verified 04/06/18 20:40 erythromycin base AdvReac Rash/Hives Verified 04/06/18 20:40 fentanyl [From Duragesic] AdvReac Unknown Verified 04/06/18 20:40 NSAIDS (Non-Steroidal AdvReac Unknown Verified 04/06/18 20:40 Anti-Inflamma verapamil AdvReac Rash/Hives Verified 04/06/18 20:40 PAPER TAPE Allergy Rash/BLISTE Uncoded 04/06/18 20:27 RS PERSERATIVE IN ALBUTEROL Allergy Dyspnea Uncoded 04/06/18 20:27 INHALER PU steroids Allergy Rash/Hives Uncoded 04/06/18 20:27 WHITE SUTURE Allergy Swelling Uncoded 04/06/18 20:27 Physical Exam Vitals: Vital Signs Temp Pulse Pulse Resp BP BP Pulse Ox 04/07/18 21:36 98.5 F 106 H 17 115/65 97 04/07/18 12:56 98.1 F 04/07/18 07:35 99.4 F 112 H 16 132/67 98 04/07/18 06:50 99.0 F 111 H 18 110/58 97 04/07/18 02:20 100.6 F H 106 H 18 115/60 97 04/07/18 01:34 77 16 95 04/07/18 01:00 98.4 F 100 16 157/84 98 04/06/18 23:30 100.8 F H 04/06/18 22:55 102 H 18 122/74 100 Intake and Output 04/07/18 04/07/18 04/07/18 06:59 14:59 22:59 Other: # Voids 3 PHYSICAL EXAMINATION: Patient is lying in the bed comfortably, no acute distress, awake alert and oriented. Poor historian.. HEENT: Normocephalic. Neck is supple. Pupils reactive. Nostrils clear. Oral cavity is moist. Ears reveal no drainage. Neck reveals no JVD, carotid bruits, or thyromegaly. CHEST EXAMINATION: Trachea is central. Symmetrical expansion. Diminished bibasilar air entry Lung srinivasan clear to auscultation and percussion. CARDIAC: Normal S1, S2 with no gallops. No murmurs ABDOMEN: Soft. Bowel sounds normal. No organomegaly. No abdominal bruits. Extremities: reveal no edema. No clubbing or cyanosis Neurologically awake, alert, oriented x3 with well-coordinated movements. No focal deficits noted. Generalized weakness Skin: No rash or skin lesions. Psychiatric: Coperative. Nonsuicidal Musculoskeletal: No joint swelling or deformity. Laceration on the right elbow is glued.. Results CBC & Chem 7: 04/06/18 22:24 04/06/18 22:24 Labs: Abnormal Lab Results - Last 24 Hours (Table) 04/06/18 04/06/18 04/07/18 Range/Units 22:24 22:24 01:09 WBC 11.2 H (3.8-10.6) k/uL RBC 3.32 L (3.80-5.40) m/uL Hgb 9.1 L (11.4-16.0) gm/dL Hct 27.9 L (34.0-46.0) % Neutrophils # 9.2 H (1.3-7.7) k/uL Lymphocytes # 0.9 L (1.0-4.8) k/uL Sodium 128 L (137-145) mmol/L Chloride 95 L (98-107) mmol/L Magnesium 1.3 L (1.6-2.3) mg/dL AST 53 H (14-36) U/L Total Protein 5.8 L (6.3-8.2) g/dL Albumin 3.2 L (3.5-5.0) g/dL Urine Protein 1+ H (Negative) Amorphous Sediment Rare H (None) /hpf Urine Bacteria Rare H (None) /hpf Hyaline Casts 6 H (0-2) /lpf Urine Mucus Rare H (None) /hpf Microbiology - Last 24 Hours (Table) 04/07/18 01:09 Urine Culture - Preliminary Urine,Clean Catch Thrombosis Risk Factor Assmnt - DVT/VTE Prophylaxis DVT/VTE Prophylaxis: Pharmacologic Prophylaxis ordered - Choose All That Apply Any of the Below Risk Factors Present?: Yes Each Factor Represents 1 point: Obesity (BMI >25), Sepsis (< 1month) Other Risk Factors: Yes Each Risk Factor Represents 2 Points: Age 61-74 years, Malignancy Each Risk Factor Represents 3 Points: Family history of DVT/PE Other congenital or acquired thrombophilia - If yes, enter type in comment: No Thrombosis Risk Factor Assessment Total Risk Factor Score: 9 Thrombosis Risk Factor Assessment Level: High Risk Assessment and Plan Assessment: Status post fall and multiple lacerated wounds. MRSA septicemia. Currently on daptomycin. Recent urinary tract infection. Fibromyalgia and chronic pain syndrome Status post recent Left anterior abdominal wall by Dr. Dyson Hyponatremia due to SIADH Gait dysfunction and medical debility History of CVA/TIA GERD Hypertension Hyperlipidemia Osteoarthritis Objective sleep apnea on CPAP/BiPAP at home Hypothyroidism Hypomagnesemia History of frequent falls, bilateral weakness from CVAs and loss of equilibrium also had bilateral facial droops that resolved History of CVA 6 and TIAs multiple Diabetes insipidus Dear joint disease Chronic kidney disease stage III Iron deficiency anemia History of bariatric surgery DVT prophylaxis Plan: Patient be continued on pain medications and continue with antibiotics the form of daptomycin. Monitor sodium level. Fluid restriction. Continue the home medications and follow closely. Otherwise continue the current management and further recommendations based on the clinical course. Prognosis is guarded with multiple medical problems and frequent falls and comorbid conditions. PT OT was consulted and possible infection care facility discharge. Time with Patient: Greater than 30
[2018-04-07] MEDS: HEPARIN SODIUM,PORCINE 5,000 UNIT/ML 1 ML VIAL SQ SCH (23:55)
[2018-04-08] MEDS: LEVOTHYROXINE 88 MCG TAB PO SCH (05:30)
[2018-04-08] MEDS: SYMBICORT 160-4.5 MCG INHALER INHALATION SCH ×2 (07:36→20:18)
[2018-04-08 07:39] LABS: Basophils % (A) 0 %; Eosinophils # (A) 0.6 k/uL (0-0.7); Eosinophils % (A) 8 %; HCT 27.7 % (34.0-46.0); Lymphocytes # (A) 1.4 k/uL (1.0-4.8); Lymphocytes % (A) 18 %; MCH 27.7 pg (25.0-35.0); MCHC 32.6 g/dL (31.0-37.0); MCV 84.9 fL (80.0-100.0); Mean Platelet Volume 6.2; Monocytes # (A) 0.5 k/uL (0-1.0); Monocytes % (A) 7 %; Neutrophils % (A) 65 %; Platelet Count 244 k/uL (150-450); RBC 3.26 m/uL (3.80-5.40); RDW 13.4 % (11.5-15.5); WBC 7.7 k/uL (3.8-10.6)
[2018-04-08 08:00] LABS: Anion Gap 8 mmol/L; Blood Urea Nitrogen 8 mg/dL (7-17); Calcium 8.9 mg/dL (8.4-10.2); Carbon Dioxide 25 mmol/L (22-30); Chloride 104 mmol/L (98-107); Glucose 88 mg/dL (74-99); Potassium 4.2 mmol/L (3.5-5.1); Sodium 137 mmol/L (137-145)
[2018-04-08] MEDS: amLODIPine 10 MG TAB PO SCH (08:30)
[2018-04-08] MEDS: HEPARIN SODIUM,PORCINE 5,000 UNIT/ML 1 ML VIAL SQ SCH ×3 (08:30→23:57)
[2018-04-08] MEDS: METOPROLOL TARTRATE 50 MG TAB PO SCH ×2 (08:30→22:31)
[2018-04-08] MEDS: LOSARTAN 50 MG TAB PO SCH (08:31)
[2018-04-08] MEDS: CLOPIDOGREL 75 MG TAB PO SCH (08:31)
[2018-04-08] MEDS: CHOLECALCIFEROL 1,000 UNIT TAB PO SCH (08:32)
[2018-04-08] MEDS: cycloSPORINE 0.05% OPHTH 0.4 ML DROPERETTE BOTH EYES SCH ×2 (08:33→22:27)
[2018-04-08] MEDS: DULoxetine HCL 60 MG CAPSULE.DR PO SCH ×2 (08:33→22:23)
[2018-04-08] MEDS: FERROUS SULFATE 325 MG TAB PO SCH (08:33)
[2018-04-08] MEDS: DAPTOmycin 500 MG in SODIUM CHLORIDE 0.9% 50 ML IVPB SCH (08:36)
[2018-04-08] MEDS: ACETAMINOPHEN TAB 325 MG TAB PO PRN ×2 (08:37→19:38)
[2018-04-08] MEDS ORDERED: NON-FORMULARY DRUG (Vitamin B Complex [Vitamin B Complex] 1 CAP) PO SCH (09:00)
[2018-04-08] MEDS ORDERED: NON-FORMULARY DRUG (Ascorbic Acid [Vitamin C] 1,000 MG) PO SCH (09:00)
[2018-04-08] MEDS ORDERED: NON-FORMULARY DRUG (Biotin [Biotin] 5 MG) PO SCH (09:00)
--- NOTE | 2018-04-08 09:24 | CONS ---
CONSULTATION DATE OF CONSULTATION: 04/07/2018 CHIEF COMPLAINT: Cough, recurrent fall. HISTORY OF PRESENT ILLNESS: Mrs. Waterman is a pleasant 68-year-old female, who is being evaluated by the neurology service per the request of Dr. Hall for recurrent falls. The patient was just recently discharged from [facility] after she was treated for bacteremia, urinary tract infection and urosepsis. On her previous admission, there was concern for possible infected hardware as she did have an intrathecal pain pump implant placed several weeks ago. She did not have any postoperative infections. Her surgical sites appeared to be clean and she was seen by Dr. Krishna from Infectious Disease who recommended a 4-week course of antibiotics and to monitor for any recurrent leukocytosis or bacteremia to determine if the hardware needs to be removed. A couple of hours after the patient was discharged, she was walking outside with her daughter when she suddenly collapsed. The patient does not recall that she lost any consciousness, but remembers that she became off balance. She did suffer a right elbow injury that did require suturing. A CT scan of the brain was done, which showed no acute intracranial abnormalities. X-rays of her right hip and right elbow showed no evidence of any fractures. Her CBC showed mild leukocytosis at 11.2, and anemia with the hemoglobin of 9.1 and hematocrit of 27%. Her comprehensive metabolic profile showed hyponatremia at 128 and slightly elevated AST at 53. Her urinalysis was normal. Regarding these recurrent spells, the patient denies feeling any dizziness or lightheadedness or chest palpitations prior to the events but she has had these in the past. PAST MEDICAL HISTORY: Chronic pain syndrome, asthma, cancer, angina, history of transient ischemic attack, fibromyalgia, gastroesophageal reflux disease, hyperlipidemia, hypertension, arthritis, sleep apnea, hypothyroidism, chronic renal insufficiency, nephrolithiasis, cardiomyopathy, history of diabetes insipidus, history of MRSA, anxiety disorder, depression, panic disorder, history of appendectomy, lumbar spine surgery, bariatric surgery, cholecystectomy, hysterectomy, joint replacement surgery, tubal ligation, spinal cord stimulator implant, intrathecal pump implant. SOCIAL HISTORY: She denies any tobacco or drug use. She rarely drinks alcohol. FAMILY HISTORY: Positive for strokes and blood clots. HOME MEDICATIONS: Reviewed in the chart. ALLERGIES: Multiple drug allergies reviewed in the chart. REVIEW OF SYSTEMS: Review of systems as mentioned above and otherwise negative. PHYSICAL EXAMINATION: Vital signs show a temperature of 98.1, pulse 111, respiration 16, blood pressure 132/67. GENERAL APPEARANCE: The patient is a well-developed female who appears to be in no acute distress. HEENT: Normocephalic, atraumatic, no facial asymmetry is seen. NECK: Supple with no masses felt. CARDIOVASCULAR: Regular rate and rhythm. ABDOMEN: Nontender, nondistended. SKIN EXAM: No rash is seen. Her abdominal and lower back incision sites appeared to be clean and healed well. NEUROLOGICAL EXAM: The patient is awake, alert, and oriented x3. Speech and language are normal. Strength is full in all 4 extremities. Sensory exam was normal to light touch in all 4 extremities. No tremors or seizure-like activity is seen. No facial asymmetry is noticed on cranial nerve testing. IMPRESSION: 1. Recurrent falls. 2. Recent bacteremia. 3. Leukocytosis. 4. Chronic pain syndrome. 5. Anemia. RECOMMENDATION: The patient's above-mentioned fall is not concerning for any epileptic activity, although this is within the differential diagnosis. An EEG will be ordered. It is unclear what is causing her to fall as she does not have any loss of consciousness or pre-episode dizziness or palpitation. I do recommend telemetry monitoring. I also recommend physical therapy evaluation for gait training. The patient will need inpatient rehab. Continue IV antibiotics for her recent bacteremia. Infectious Disease will be consulted. In outpatient setting, we may consider referring the patient for a loop recorder. Continue the rest of your current workup and management. I will continue to follow with you. Further recommendations to follow. Thank you for allowing me to participate in the care of your patient. If you have any questions, please feel free to contact me. MMODL / IJN: [id number] /
--- NOTE | 2018-04-08 09:30 | P.CONS ---
History of Present Illness - Reason for Consult Consult date: 04/08/18 Bacteremia - History of Present Illness 68-year-old female who has a extensive past medical history including a history of TIA, fibromyalgia, obesity treated by LAP-BAND with adequate success, and severe back pain. She's undergone multiple procedures in the past for her back and several years ago had a spinal cord stimulator placed. She had modestly good control of her pain with this device but eventually broke and was no longer effective. Because of her severe and ongoing back pain she was evaluated and had a trial of a intrathecal pain pump. She had good results and consequently the pain pump was officially placed last month. She was having relatively good control of her pain that she started to feel very poorly. She had fevers and presented to a local hospital. There was concerns because she had fever she was infection of her pain pump was transferred to the facility where it was implanted. Those records are available for review. She was seen by infectious diseases and the implanting surgeon. Imaging studies reveal evidence of the fluid collection near the implant and aspiration was obtained which failed to reveal evidence of underlying infection. No cultures were noted be positive from the local hospital or the outside hospital when cultures were obtained. The patient or continue to feel worse over time it was progressive fatigue and malaise and fever she presented to our emergency center for further evaluation and was admitted to the hospital from March 26 through April 06 which time she was treated for MRSA bacteremia of unclear etiology but limited bacteremia making it less likely the pain pump is infected. EKG did not show endocarditis. Patient was started on daptomycin and was discharged to the [facility] on April 06. When she arrived she ended up falling onto stairs hitting her head with no loss of consciousness and sustained laceration to the right elbow. She was brought back to [facility] emergency center for evaluation. She underwent a CAT scan of the head and cervical spine that showed mild cerebral atrophy. No acute intracranial process. Minor spondylitic changes in the cervical spine. No fracture. Humerus x-ray showed no fracture. Chest x-ray was normal. Hip x- ray showed no fracture or dislocation. Patient did sustain a laceration to the right elbow that did not require suturing. Her initial white count was 11.2, temperature max 100.8. AST 53, blood culture showing no growth after 24 hours. Urinalysis was negative. Patient is scheduled for discharge to [facility] [place] for subacute rehab. Patient is denying any fever or chills. She does complain of head discomfort and neck discomfort. She had the back of her head but there is no laceration or ecchymosis noted. She denies any chest pain or shortness of breath. No nausea, vomiting, diarrhea. She denies any dysuria. She does have ecchymosis to the right hip. Patient has been continued on daptomycin and she'll complete her course on April 16. Review of Systems All systems: negative Constitutional: Denies chills, Denies fever Eyes: denies blurred vision, denies pain Ears, nose, mouth and throat: Denies headache, Denies sore throat Cardiovascular: Denies chest pain, Denies shortness of breath Respiratory: Denies cough Gastrointestinal: Denies abdominal pain, Denies diarrhea, Denies nausea, Denies vomiting Genitourinary: Denies dysuria, Denies hematuria Musculoskeletal: Denies myalgias Integumentary: Denies pruritus, Denies rash Neurological: Denies numbness, Denies weakness Psychiatric: Denies anxiety, Denies depression Endocrine: Denies fatigue, Denies weight change Past Medical History Past Medical History: Asthma, Cancer, Chest Pain / Angina, CVA/TIA, Fibromyalgia , GERD/Reflux, Hyperlipidemia, Hypertension, Osteoarthritis (OA), Renal Disease , Sleep Apnea/CPAP/BIPAP, Thyroid Disorder Additional Past Medical History / Comment(s): Pt recently admitted to [facility] on 03/26/18 with UTI/sepsis, hyponatremia/SIADH, hypomagnesemia, hypokalemia and bacterial MRSA. Other HX: Frequent falls, bilateral weakness from CVAs and loss of equalibrium-also had bilateral facial droops that resolve, pt states she has had 6 CVAs total, TIAs, L leg bone cancer and entire leg has titanium rods, R knee arthroplasty-pt fell and damaged artificial joint, chronic back pain, carpal tunnel syndrome bilateral elbows/shoulders, DJD, diabetes insipidus, LAUREN with no device since weight loss, CKD stage III, KLETSEL DEHE WINTUN bilaterally, anemia. History of Any Multi-Drug Resistant Organisms: MRSA Year Discovered:: 03/26/18 MDRO Source:: BLOOD Past Surgical History: Appendectomy, Back Surgery, Bariatric Surgery, Cholecystectomy, Heart Catheterization, Hysterectomy, Joint Replacement, Orthopedic Surgery, Tubal Ligation Additional Past Surgical History / Comment(s): 04/02/18 PICC line for ABX, Lap band with removal, gastric sleeve, L leg titanium rods, R total knee arthroplasty, bilateral wrist carpal tunnel releases, R great toe surgery to remove a growth, lithotripsy, pain stimulator-nonfunctioning, pain clinic procedures, bilateral cataract removals. Past Anesthesia/Blood Transfusion Reactions: Previous Problems w/ Anesthesia Additional Past Anesthesia/Blood Transfusion Reaction / Comm: Slow to wake. Smoking Status: Never smoker Additional Past Alcohol Use History / Comment(s): Patient is . Prior to previous admission, patient was living independently but her daughter was helping her. There are no animals in the home. Patient is retired. No experience. No international travel. Lifelong nonsmoker. No history of alcohol or recreational drug use. - Past Family History Mother Family Medical History: CVA/TIA Daughter(s) Family Medical History: Deep Vein Thrombosis (DVT) Additional Family Medical History / Comment(s): dvt Medications and Allergies Home Medications Medication Instructions Recorded Confirmed Type Clopidogrel [Plavix] 75 mg PO DAILY 01/04/14 04/06/18 History DULoxetine HCL [Cymbalta] 60 mg PO BID 01/04/14 04/06/18 History Fluticasone/Salmeterol [Advair 1 puff INHALATION RT-BID 01/04/14 04/06/18 History 500-50 Diskus] Levothyroxine Sodium [Synthroid] 88 mcg PO QAM 01/04/14 04/06/18 History Metoprolol Tartrate [Lopressor] 50 mg PO BID 01/04/14 04/06/18 History Montelukast [Singulair] 10 mg PO HS 01/04/14 04/06/18 History Aspirin 81 mg PO HS 02/07/14 04/06/18 History valACYclovir HCL [Valtrex] 1,000 mg PO DAILY PRN 02/07/14 04/06/18 History Ondansetron HCl [Zofran] 8 mg PO Q12HR PRN 02/21/15 04/06/18 History Vitamin B Complex 1 cap PO DAILY 02/21/15 04/06/18 History cycloSPORINE [Restasis] 1 drops BOTH EYES BID 02/21/15 04/06/18 History Biotin 5 mg PO DAILY 04/26/15 04/06/18 History Ferrous Sulfate [Feosol] 325 mg PO DAILY 04/26/15 04/06/18 History Ascorbic Acid [Vitamin C] 1,000 mg PO DAILY 05/13/16 04/06/18 History Bisacodyl 5 mg PO DAILY PRN 03/26/18 04/06/18 History Carbidopa-Levodopa 25-100 mg 1 tab PO HS 03/26/18 04/06/18 History [Sinemet 25-100 mg] Cholecalciferol [Vitamin D3] 5,000 unit PO DAILY 03/26/18 04/06/18 History EPINEPHrine [Auvi-Q] 0.3 mg IM ONCE PRN 03/26/18 04/06/18 History Levalbuterol Hfa Inhaler [Xopenex 1 - 2 puff INHALATION RT-Q6H PRN 03/26/18 History Hfa Inhaler] Losartan Potassium 100 mg PO DAILY 03/26/18 04/06/18 History amLODIPine [Norvasc] 10 mg PO BID 03/26/18 04/06/18 History DAPTOmycin [Cubicin] 500 mg IV DAILY #14 bag 04/02/18 04/06/18 Rx Folic Acid 1 mg PO DAILY@1200 #30 tab 04/02/18 04/06/18 Rx Thiamine [Vitamin B-1] 100 mg PO DAILY@1200 #30 tab 04/02/18 04/06/18 Rx Multivitamins, Thera [Multivitamin 1 tab PO DAILY@1200 04/06/18 04/06/18 History (formulary)] Allergies Allergy/AdvReac Type Severity Reaction Status Date / Time aripiprazole [From Abilify] Allergy Anaphylaxis Verified 04/06/18 20:40 baclofen Allergy Anaphylaxis Verified 04/06/18 20:40 butalbital [From Fioricet] Allergy Rash/Hives Verified 04/06/18 20:40 cefadroxil hydrate Allergy Rash/Hives Verified 04/06/18 20:40 [From Duricef] cefazolin sodium Allergy Anaphylaxis Verified 04/06/18 20:40 [From Kefzol] cephalexin monohydrate Allergy Anaphylaxis Verified 04/06/18 20:40 [From Keflex] ciprofloxacin [From Cipro] Allergy Swelling Verified 04/06/18 20:40 OF THROAT ,RASH AND HIVES ciprofloxacin HCl Allergy Rash/Hives, Verified 04/06/18 20:40 [From Cipro] SWELLING OF THROAT clindamycin HCl Allergy Unknown Verified 04/06/18 20:40 [From Cleocin] clindamycin palmitate HCl Allergy Unknown Verified 04/06/18 20:40 [From Cleocin] clindamycin phosphate Allergy Unknown Verified 04/06/18 20:40 [From Cleocin] dexamethasone [From Decadron] Allergy Anaphylaxis Verified 04/06/18 20:40 dexamethasone sod phosphate Allergy Anaphylaxis Verified 04/06/18 20:40 [From Decadron] ,RASH divalproex sodium Allergy Rash/Hives Verified 04/06/18 20:40 [From Depakote] hydroxyzine HCl [From Atarax] Allergy Unknown Verified 04/06/18 20:40 ibuprofen [From Motrin] Allergy RASH Verified 04/06/18 20:40 ,ITCHING SWELLING OF THROAT influenza virus vaccine, Allergy Anaphylaxis Verified 04/06/18 20:40 specific [Influenza Virus Vacc,Specific] Iodinated Contrast- Oral and Allergy Anaphylaxis Verified 04/06/18 20:40 IV Dye ketorolac tromethamine Allergy Chest Pain Verified 04/06/18 20:40 [From Toradol] lidocaine HCl Allergy Anaphylaxis Verified 04/06/18 20:40 [From Xylocaine] lisinopril Allergy Swelling Verified 04/06/18 20:40 meperidine HCl [From Demerol] Allergy Rash/Hives Verified 04/06/18 20:40 Milk Containing Products Allergy ABDOMINAL Verified 04/06/18 20:40 PAIN NAUSEA AND VOMITING morphine Allergy Vomiting Verified 04/06/18 20:40 Mushroom Allergy Anaphylaxis Verified 04/06/18 20:40 nortriptyline HCl Allergy Unknown Verified 04/06/18 20:40 [From Pamelor] omalizumab [From Xolair] Allergy Anaphylaxis Verified 04/06/18 20:40 Penicillins Allergy Rash/Hives Verified 04/06/18 20:40 pregabalin [From Lyrica] Allergy Rash/Hives Verified 04/06/18 20:40 procaine HCl [From Novocain] Allergy Unknown Verified 04/06/18 20:40 shellfish derived Allergy Anaphylaxis Verified 04/06/18 20:40 sulfamethoxazole Allergy Unknown Verified 04/06/18 20:40 [From Septra] tetracycline [Tetracycline] Allergy Rash/Hives Verified 04/06/18 20:40 theophylline anhydrous Allergy Unknown Verified 04/06/18 20:40 [From Joel-Dur] triamcinolone Allergy Anaphylaxis Verified 04/06/18 20:40 trimethoprim [From Septra] Allergy RASH, Verified 04/06/18 20:40 ITCHING vancomycin Allergy ITCHING Verified 04/06/18 20:40 ,HIVES wheat Allergy Rash/Hives Verified 04/06/18 20:40 yellow dye Allergy Anaphylaxis Verified 04/06/18 20:40 erythromycin base AdvReac Rash/Hives Verified 04/06/18 20:40 fentanyl [From Duragesic] AdvReac Unknown Verified 04/06/18 20:40 NSAIDS (Non-Steroidal AdvReac Unknown Verified 04/06/18 20:40 Anti-Inflamma verapamil AdvReac Rash/Hives Verified 04/06/18 20:40 PAPER TAPE Allergy Rash/BLISTE Uncoded 04/06/18 20:27 RS PERSERATIVE IN ALBUTEROL Allergy Dyspnea Uncoded 04/06/18 20:27 INHALER PU steroids Allergy Rash/Hives Uncoded 04/06/18 20:27 WHITE SUTURE Allergy Swelling Uncoded 04/06/18 20:27 Physical Exam Vitals: Vital Signs Temp Pulse Resp BP Pulse Ox 04/07/18 23:00 97.0 F L 82 17 158/62 98 04/07/18 21:36 98.5 F 106 H 17 115/65 97 04/07/18 12:56 98.1 F Intake and Output 04/07/18 04/08/18 04/08/18 22:59 06:59 14:59 Intake Total 480 400 Balance 480 400 Intake: Intake, IV Titration 80 160 Amount Sodium Chloride 0.9% 1, 80 160 000 ml @ 20 mls/hr IV . Q24H [facility] Rx#:[id number] Oral 400 240 Other: Voiding Method Toilet # Voids 1 1 GEN: 68-year-old woman sitting in a chair at the bedside. HEENT: Anicteric conjunctiva are pink and moist nasal mucosa grossly intact without significant lesions, there is no thrush. No ecchymosis or wounds noted to the scalp. Neck: The neck is supple without significant lymphadenopathy or thyromegaly. Lungs: Good bilateral air entry without significant crackles or wheezing. There is no significant bronchial sounds. Heart: Regular rate and rhythm with an audible S1-S2, no S3 no S4. There is no significant murmur click or rub, PMI was nondisplaced. Abdomen: Positive bowel sounds soft and nontender without palpable masses or organomegaly. There was no guarding or rebound. Extremities: The upper extremities have excellent pulses they are symmetric. There is a dressing in place to the right forearm and elbow. This was not removed for evaluation and referred to Dr. Krishna. Please see nursing documentation of the wound. Lower extremities have trace bilateral lower extremity edema. Pulses are 2+ and symmetric Neuro: Awake alert oriented to person place and time. There are no acutegross focal sensory motor deficits. Results Results: Laboratory Results WBC 7.7 k/uL (3.8-10.6) 04/08/18 07:02 RBC 3.26 m/uL (3.80-5.40) L 04/08/18 07:02 Hgb 9.0 gm/dL (11.4-16.0) L 04/08/18 07:02 Hct 27.7 % (34.0-46.0) L 04/08/18 07:02 MCV 84.9 fL (80.0-100.0) 04/08/18 07:02 MCH 27.7 pg (25.0-35.0) 04/08/18 07:02 MCHC 32.6 g/dL (31.0-37.0) 04/08/18 07:02 RDW 13.4 % (11.5-15.5) 04/08/18 07:02 Plt Count 244 k/uL (150-450) 04/08/18 07:02 Neutrophils % 65 % 04/08/18 07:02 Lymphocytes % 18 % 04/08/18 07:02 Monocytes % 7 % 04/08/18 07:02 Eosinophils % 8 % 04/08/18 07:02 Basophils % 0 % 04/08/18 07:02 Neutrophils # 5.0 k/uL (1.3-7.7) 04/08/18 07:02 Lymphocytes # 1.4 k/uL (1.0-4.8) 04/08/18 07:02 Monocytes # 0.5 k/uL (0-1.0) 04/08/18 07:02 Eosinophils # 0.6 k/uL (0-0.7) 04/08/18 07:02 Basophils # 0.0 k/uL (0-0.2) 04/08/18 07:02 Sodium 137 mmol/L (137-145) 04/08/18 07:02 Potassium 4.2 mmol/L (3.5-5.1) 04/08/18 07:02 Chloride 104 mmol/L (98-107) 04/08/18 07:02 Carbon Dioxide 25 mmol/L (22-30) 04/08/18 07:02 Anion Gap 8 mmol/L 04/08/18 07:02 BUN 8 mg/dL (7-17) 04/08/18 07:02 Creatinine 0.60 mg/dL (0.52-1.04) 04/08/18 07:02 Est GFR (CKD-EPI)AfAm >90 (>60 ml/min/1.73 sqM) 04/08/18 07:02 Est GFR (CKD-EPI)NonAf >90 (>60 ml/min/1.73 sqM) 04/08/18 07:02 Glucose 88 mg/dL (74-99) 04/08/18 07:02 Plasma Lactic Acid Anjel 1.1 mmol/L (0.7-2.0) 04/07/18 01:27 Calcium 8.9 mg/dL (8.4-10.2) 04/08/18 07:02 Magnesium 1.3 mg/dL (1.6-2.3) L 04/06/18 22:24 Total Bilirubin 0.6 mg/dL (0.2-1.3) 04/06/18 22:24 AST 53 U/L (14-36) H 04/06/18 22:24 ALT 32 U/L (9-52) 04/06/18 22:24 Alkaline Phosphatase 64 U/L (38-126) 04/06/18 22:24 Total Protein 5.8 g/dL (6.3-8.2) L 04/06/18 22:24 Albumin 3.2 g/dL (3.5-5.0) L 04/06/18 22:24 Urine Color Yellow 04/07/18 01:09 Urine Appearance Clear (Clear) 04/07/18 01:09 Urine pH 6.0 (5.0-8.0) 04/07/18 01:09 Ur Specific [place] 1.020 (1.001-1.035) 04/07/18 01:09 Urine Protein 1+ (Negative) H 04/07/18 01:09 Urine Glucose (UA) Negative (Negative) 04/07/18 01:09 Urine Ketones Negative (Negative) 04/07/18 01:09 Urine Blood Negative (Negative) 04/07/18 01:09 Urine Nitrite Negative (Negative) 04/07/18 01:09 Urine Bilirubin Negative (Negative) 04/07/18 01:09 Urine Urobilinogen <2.0 mg/dL (<2.0) 04/07/18 01:09 Ur Leukocyte Esterase Negative (Negative) 04/07/18 01:09 Urine RBC 4 /hpf (0-5) 04/07/18 01:09 Urine WBC 4 /hpf (0-5) 04/07/18 01:09 Ur Squamous Epith Cells 4 /hpf (0-4) 04/07/18 01:09 Amorphous Sediment Rare /hpf (None) H 04/07/18 01:09 Urine Bacteria Rare /hpf (None) H 04/07/18 01:09 Hyaline Casts 6 /lpf (0-2) H 04/07/18 01:09 Urine Mucus Rare /hpf (None) H 04/07/18 01:09 CBC & Chem 7: 04/08/18 07:02 04/08/18 07:02 Labs: Abnormal Lab Results - Last 24 Hours (Table) 04/08/18 Range/Units 07:02 RBC 3.26 L (3.80-5.40) m/uL Hgb 9.0 L (11.4-16.0) gm/dL Hct 27.7 L (34.0-46.0) % Microbiology - Last 24 Hours (Table) 04/07/18 00:50 Blood Culture - Preliminary Blood No Growth after 24 hours 04/07/18 01:09 Urine Culture - Preliminary Urine,Clean Catch Assessment and Plan Plan: MRSA bacteremia and discharged on daptomycin which will be completed on April 16. Patient returned with a fall with plan now to go to [facility] [place]. Continue supportive care area and further recommendations as patient process. The above dictated assessment and findings were discussed with Dr. Krishna. The impression and plan of care have been directed as dictated. Priya Pantoja nurse practitioner acting as scribe for Dr. Krishna.
[2018-04-08 11:59] VITALS: BMI 31.2
[2018-04-08] MEDS: MULTIVITAMINS, THERA 1 EACH TAB PO SCH (12:43)
[2018-04-08] MEDS: FOLIC ACID 1 MG TAB PO SCH (12:43)
[2018-04-08] MEDS: THIAMINE 100 MG TAB PO SCH (12:44)
--- NOTE | 2018-04-08 16:40 | P.PN ---
Subjective Progress Note Date: 04/08/18 Patient is a pleasant 68-year-old female who is being followed by the neurology service for recurrent falls. Patient was recently discharged [facility] after being treated for urinary tract infection and urosepsis. Patient has an intrathecal pain pump which was placed several weeks ago. There was concern for infected hardware. Patient did not have any postoperative infections. Infectious disease saw the patient and recommended a four-week course of antibiotics and to monitor for any recurrent leukocytosis. Patient was discharged home with family. Couple hours after discharge, patient was walking outside with daughter when she suddenly collapsed. Patient states she did not lose consciousness. Patient reports she became off balance. Patient had an elbow injury that required suturing. Computed tomography scan of the brain showed no acute intracranial abnormalities. Patient denies dizziness lightheadedness or chest palpitations. At the time of my evaluation, patient's resting comfortably in bed and appears to be in no acute distress. Objective - Vital Signs Vital signs: Vital Signs Temp 96.7 F L 04/08/18 14:27 Pulse 84 04/08/18 14:27 Resp 16 04/08/18 14:27 BP 118/66 04/08/18 14:27 Pulse Ox 96 04/08/18 14:27 Intake & Output 04/07/18 04/08/18 04/08/18 18:59 06:59 18:59 Intake Total 880 Balance 880 Weight 72.575 kg Intake: Intake, IV Titration 240 Amount Sodium Chloride 0.9% 1, 240 000 ml @ 20 mls/hr IV . Q24H [facility] Rx#:[id number] Oral 640 Other: Voiding Method Toilet Toilet # Voids 3 1 1 - Exam PHYSICAL EXAM: GENERAL APPEARANCE: Patient is a well-developed, female who appears to be in no acute distress. HEENT: Normocephalic, atraumatic, no facial asymmetry is seen. Neck is supple with no masses felt. CARDIOVASCULAR: Regular rate and rhythm. ABDOMEN: Nontender, nondistended. EXTREMITIES: Show no edema or clubbing. NEUROLOGICAL EXAM: Patient is awake, alert, and oriented 3. Speech and language are normal. Strength is full in all 4 extremities. Sensory exam is normal to light touch in all 4 extremities. No facial asymmetry is seen on cranial nerve testing. No tremors or seizure-like activity noted. - Labs CBC & Chem 7: 04/08/18 07:02 04/08/18 07:02 Labs: Abnormal Lab Results - Last 24 Hours (Table) 04/08/18 Range/Units 07:02 RBC 3.26 L (3.80-5.40) m/uL Hgb 9.0 L (11.4-16.0) gm/dL Hct 27.7 L (34.0-46.0) % Microbiology - Last 24 Hours (Table) 04/07/18 01:09 Urine Culture - Final Urine,Clean Catch 04/07/18 00:50 Blood Culture - Preliminary Blood No Growth after 24 hours Assessment and Plan Plan: Impression: 1. Recurrent falls 2. Recurrent bacteremia 3. Leukocytosis 4. Chronic pain syndrome 5. Anemia Recommendation: The patient reports recurrent falls which are not new for her. Patient states she is had previous episodes of just falling to the ground. This does not sound consistent with seizure activity. Patient does not describe postictal state. No seizure activity is being reported. EEG was done and results are pending. I recommend physical therapy for gait training. Continue current medical management. Continue telemetry monitoring. Patient may need inpatient rehab. Patient may need to follow up with cardiology for possible lupus recorder. I will continue to follow with you. Further recommendations to follow. I performed an examination of the patient and discussed the management with the CLINICAL SUPPORT SPECIALIST. I have reviewed the CLINICAL SUPPORT SPECIALIST notes and agree with the findings and plan of care.
[2018-04-08] MEDS: ASPIRIN 81 MG PO SCH (22:23)
[2018-04-08] MEDS: MONTELUKAST 10 MG TAB PO SCH (22:23)
[2018-04-08] MEDS: CARBIDOPA-LEVODOPA 25-100 MG 1 EACH TAB PO SCH (22:23)
[2018-04-08] MEDS: SODIUM CHLORIDE 0.9% 1,000 ML IV SCH (23:18)
--- NOTE | 2018-04-08 23:27 | P.CON ---
Consult Note - . Consult date: 04/08/18 Assessment/Plan:: 68-year-old female who has a extensive past medical history including a history of TIA, fibromyalgia, obesity treated by LAP-[employer] with adequate success, and severe back pain. She's undergone multiple procedures in the past for her back and several years ago had a spinal cord stimulator placed. She had modestly good control of her pain with this device but eventually broke and was no longer effective. Because of her severe and ongoing back pain she was evaluated and had a trial of a intrathecal pain pump. She had good results and consequently the pain pump was officially placed last month. She was having relatively good control of her pain that she started to feel very poorly. She had fevers and presented to a local hospital. There was concerns because she had fever she was infection of her pain pump was transferred to the facility where it was implanted. Those records are available for review. She was seen by infectious diseases and the implanting surgeon. Imaging studies reveal evidence of the fluid collection near the implant and aspiration was obtained which failed to reveal evidence of underlying infection. No cultures were noted be positive from the local hospital or the outside hospital when cultures were obtained. The patient or continue to feel worse over time it was progressive fatigue and malaise and fever she presented to our emergency center for further evaluation and was admitted to the hospital from March 26 through April 06 which time she was treated for MRSA bacteremia of unclear etiology but limited bacteremia making it less likely the pain pump is infected. EKG did not show endocarditis. Patient was started on daptomycin and was discharged to the [facility] on April 06. When she arrived she ended up falling onto stairs hitting her head with no loss of consciousness and sustained laceration to the right elbow. She was brought back to [facility] emergency center for evaluation. She underwent a CAT scan of the head and cervical spine that showed mild cerebral atrophy. No acute intracranial process. Minor spondylitic changes in the cervical spine. No fracture. Humerus x-ray showed no fracture. Chest x-ray was normal. Hip x- ray showed no fracture or dislocation. Patient did sustain a laceration to the right elbow that did not require suturing. Her initial white count was 11.2, temperature max 100.8. AST 53, blood culture showing no growth after 24 hours. Urinalysis was negative. Patient is scheduled for discharge to [facility] for subacute rehab. Patient is denying any fever or chills. She does complain of head discomfort and neck discomfort. She had the back of her head but there is no laceration or ecchymosis noted. She denies any chest pain or shortness of breath. No nausea, vomiting, diarrhea. She denies any dysuria. She does have ecchymosis to the right hip. Patient has been continued on daptomycin and she'll complete her course on April 16. Please see the consult note is dictated by nurse practitioner Mrs. Priya Pantoja. 68-year-old woman recently discharged from Hospital suffered a fall at the facility that she was staying at, daughter relates that she was wanting to go outside, consequently they went outside and after a few steps she went to reach for the [id number] and fell onto her right side EMS was called to bring her to hospital. She has extensive bruising but no fractures were found. As noted the patient has had the recent bacteremic event that was short- lived. Does not appear to have evidence of infection at her pain pump, and she did have evaluation of the outside hospital that failed to reveal evidence at that site also. The plan will be to complete the 2 weeks of intravenous antibiotic therapy with daptomycin for the limited MRSA bacteremia. The goal was to monitor her after antibiotic therapy is complete. If there is recurrent infection there were need to have hardware removed including the old spinal stimulator. Patient's and [id number] are present and understand the current clinical plan. Discharge plan is being currently instructed, with her many ALLERGIES daptomycin is her only viable option. I agree with evaluation, assessment and plan as dictated by nurse practitioner Mrs. Priya Pantoja.
--- NOTE | 2018-04-08 23:50 | P.PN ---
Subjective Progress Note Date: 04/08/18 Principal diagnosis: Recurrent falls MRSA bacteremia Patient is a 68-year-old female with a known history of multiple medical problems including CVA/TIA, fibromyalgia, GERD, asthma, osteoarthritis, obstructive sleep apnea on CPAP/BiPAP at home, hypothyroidism and multiple other medical problems who was discharged from the hospital on 04/06/2018 presented to ER status post fall. Patient walked down 2 steps and then fell. Patient did hurt her right upper arm. Patient did strike her head. Patient does have some neck discomfort. Patient did not lose consciousness. Patient was treated for urinary tract infection and MRSA septicemia as well as hyponatremia and acute kidney injury during previous admission. Patient was discharged with IV antibiotics of daptomycin as per ID recommendations. Patient does have a history of recent pain pump placement. Currently patient denied any fever or chills. No chest pain or shortness of breath. No nausea vomiting or abdominal pain. Patient had chest x-ray, right elbow and CT head and neck was done in the ER. No acute fracture was noted. 04/08/2018 Patient denied any complains of chest pain or shortness of breath. Patient is being continued on IV antibiotics. Apparently patient has been having recurrent falls. Unlikely seizure activity. EEG was ordered and report is pending at this time. Neurology is following. PTOT be continued and possible transfer to rehab tomorrow. No other acute overnight issues. Discussed with her daughter at bedside in detail. Current medications reviewed Objective - Vital Signs Vital signs: Vital Signs Temp 97.3 F L 04/08/18 22:35 Pulse 90 04/08/18 22:35 Resp 16 04/08/18 22:35 BP 116/61 04/08/18 22:35 Pulse Ox 93 L 04/08/18 22:35 Intake & Output 04/08/18 04/08/18 04/09/18 06:59 18:59 06:59 Intake Total 880 590 Balance 880 590 Weight 72.575 kg Intake: Intake, IV Titration 240 Amount Sodium Chloride 0.9% 1, 240 000 ml @ 20 mls/hr IV . Q24H [facility] Rx#:[id number] Oral 640 590 Other: Voiding Method Toilet Toilet Toilet # Voids 1 1 2 - Exam Patient is lying in the bed comfortably, no acute distress, awake alert and oriented. Poor historian.. HEENT: Normocephalic. Neck is supple. Pupils reactive. Nostrils clear. Oral cavity is moist. Ears reveal no drainage. Neck reveals no JVD, carotid bruits, or thyromegaly. CHEST EXAMINATION: Trachea is central. Symmetrical expansion. Diminished bibasilar air entry Lung srinivasan clear to auscultation and percussion. CARDIAC: Normal S1, S2 with no gallops. No murmurs ABDOMEN: Soft. Bowel sounds normal. No organomegaly. No abdominal bruits. Extremities: reveal no edema. No clubbing or cyanosis Neurologically awake, alert, oriented x3 with well-coordinated movements. No focal deficits noted. Generalized weakness Skin: No rash or skin lesions. Psychiatric: Coperative. Nonsuicidal Musculoskeletal: No joint swelling or deformity. Laceration on the right elbow is glued.. - Labs CBC & Chem 7: 04/08/18 07:02 04/08/18 07:02 Labs: Abnormal Lab Results - Last 24 Hours (Table) 04/08/18 Range/Units 07:02 RBC 3.26 L (3.80-5.40) m/uL Hgb 9.0 L (11.4-16.0) gm/dL Hct 27.7 L (34.0-46.0) % Microbiology - Last 24 Hours (Table) 04/07/18 01:09 Urine Culture - Final Urine,Clean Catch 04/07/18 00:50 Blood Culture - Preliminary Blood No Growth after 24 hours Assessment and Plan Assessment: Status post fall and multiple lacerated wounds. With history of recurrent falls. MRSA septicemia. Currently on daptomycin. Recent urinary tract infection. Fibromyalgia and chronic pain syndrome Status post recent Left anterior abdominal wall by Dr. Dyson Hyponatremia due to SIADH Gait dysfunction and medical debility History of CVA/TIA GERD Hypertension Hyperlipidemia Osteoarthritis Objective sleep apnea on CPAP/BiPAP at home Hypothyroidism Hypomagnesemia History of frequent falls, bilateral weakness from CVAs and loss of equilibrium also had bilateral facial droops that resolved History of CVA 6 and TIAs multiple Diabetes insipidus Dear joint disease Chronic kidney disease stage III Iron deficiency anemia History of bariatric surgery DVT prophylaxis Plan: Patient be continued on pain medications and continue with antibiotics the form of daptomycin. Monitor sodium level. Improved to 137. Fluid restriction. Continue the home medications and follow closely. Otherwise continue the current management and further recommendations based on the clinical course. Prognosis is guarded with multiple medical problems and frequent falls and comorbid conditions. PT OT was consulted and possible infection care facility discharge. Time with Patient: Greater than 30
[2018-04-09] MEDS: LEVOTHYROXINE 88 MCG TAB PO SCH (05:37)
[2018-04-09] MEDS: SODIUM CHLORIDE 0.9% 1,000 ML IV SCH (05:39)
[2018-04-09] MEDS: SYMBICORT 160-4.5 MCG INHALER INHALATION SCH (07:47)
[2018-04-09] MEDS: DAPTOmycin 500 MG in SODIUM CHLORIDE 0.9% 50 ML IVPB SCH (08:51)
[2018-04-09] MEDS: amLODIPine 10 MG TAB PO SCH (08:52)
[2018-04-09] MEDS: HEPARIN SODIUM,PORCINE 5,000 UNIT/ML 1 ML VIAL SQ SCH (08:52)
[2018-04-09] MEDS: DULoxetine HCL 60 MG CAPSULE.DR PO SCH (08:53)
[2018-04-09] MEDS: METOPROLOL TARTRATE 50 MG TAB PO SCH (08:53)
[2018-04-09] MEDS: CHOLECALCIFEROL 1,000 UNIT TAB PO SCH (08:53)
[2018-04-09] MEDS: LOSARTAN 50 MG TAB PO SCH (08:54)
[2018-04-09] MEDS: THIAMINE 100 MG TAB PO SCH (08:54)
[2018-04-09] MEDS: MULTIVITAMINS, THERA 1 EACH TAB PO SCH (08:54)
[2018-04-09] MEDS: CLOPIDOGREL 75 MG TAB PO SCH (08:54)
[2018-04-09] MEDS: FERROUS SULFATE 325 MG TAB PO SCH (08:55)
[2018-04-09] MEDS: FOLIC ACID 1 MG TAB PO SCH (08:55)
[2018-04-09] MEDS: ACETAMINOPHEN TAB 325 MG TAB PO PRN (09:01)
[2018-04-09] MEDS: cycloSPORINE 0.05% OPHTH 0.4 ML DROPERETTE BOTH EYES SCH (09:40)
--- NOTE | 2018-04-09 11:10 | EEG ---
ELECTROENCEPHALOGRAM REPORT DATE OF SERVICE: 04/08/2018 REASON FOR TESTING: Possible syncope. DESCRIPTION OF THE PROCEDURE: This EEG was performed using a 21 channel digital electroencephalograph, following international 10-20 system. DESCRIPTION OF THE RECORDING: From the beginning of the tracing, with patient's eyes closed, the background rhythm was mostly consisting of 8 Hz to 9 Hz alpha frequency in the posterior occipital leads. No obvious asymmetry is seen. Photic stimulation was performed with a minimal driving response seen. No pathological waves were elicited. Hyperventilation was not performed. Occasional muscle and movement artifacts are seen. The patient remains awake throughout the tracing. No epileptiform discharges were seen. Her EKG lead showed a regular rate and rhythm. INTERPRETATION: This awake EEG can be considered within normal limits. There was no asymmetry seen. No epileptiform discharges were noticed. The absence of epileptiform discharges does not rule out the diagnosis of epilepsy; therefore clinical correlation is recommended. MMQUOC / ALINA: [id number] /
[2018-04-09 12:50] VITALS: BP 111/68; PULSE 80; RESP 18; TEMP 98
--- NOTE | 2018-04-09 13:35 | P.DS ---
Providers Date of admission: 04/06/18 22:12 Expected date of discharge: 04/09/18 Attending physician: Dutch Hall MD Consults: 04/06/18 22:12 Consult Physician Urgent Consulting Provider: Pepe Dyson Consult Reason/Comments: weakness Do you want consulting provider notified?: Yes 04/07/18 17:33 Consult Physician Routine Consulting Provider: Mendez Krishna Consult Reason/Comments: Bacteremia Do you want consulting provider notified?: Yes Primary care physician: Kaur Mckeonrecht Hospital Course: Discharge diagnosis Status post fall and multiple lacerated wounds. With history of recurrent falls. MRSA septicemia. Currently on daptomycin. Recent urinary tract infection. Fibromyalgia and chronic pain syndrome Status post recent Left anterior abdominal wall pain pump placement by Dr. Dyson Hyponatremia due to SIADH Gait dysfunction and medical debility History of CVA/TIA GERD Hypertension Hyperlipidemia Osteoarthritis Objective sleep apnea on CPAP/BiPAP at home Hypothyroidism Hypomagnesemia History of frequent falls, bilateral weakness from CVAs and loss of equilibrium also had bilateral facial droops that resolved History of CVA 6 and TIAs multiple Diabetes insipidus Dear joint disease Chronic kidney disease stage III Iron deficiency anemia History of bariatric surgery DVT prophylaxis Hospital course Patient is a 68-year-old female with a known history of multiple medical problems including CVA/TIA, fibromyalgia, GERD, asthma, osteoarthritis, obstructive sleep apnea on CPAP/BiPAP at home, hypothyroidism and multiple other medical problems who was discharged from the hospital on 04/06/2018 presented to ER status post fall. Patient walked down 2 steps and then fell. Patient did hurt her right upper arm. Patient did strike her head. Patient does have some neck discomfort. Patient did not lose consciousness. Patient was treated for urinary tract infection and MRSA septicemia as well as hyponatremia and acute kidney injury during previous admission. Patient was discharged with IV antibiotics of daptomycin as per ID recommendations. Patient does have a history of recent pain pump placement. Currently patient denied any fever or chills. No chest pain or shortness of breath. No nausea vomiting or abdominal pain. Patient had chest x-ray, right elbow and CT head and neck was done in the ER. No acute fracture was noted. 04/08/2018 Patient denied any complains of chest pain or shortness of breath. Patient is being continued on IV antibiotics. Apparently patient has been having recurrent falls. Unlikely seizure activity. EEG was ordered and report is pending at this time. Neurology is following. PTOT be continued and possible transfer to rehab tomorrow. No other acute overnight issues. Discussed with her daughter at bedside in detail. 04/09/2018 Patient denied any new complaints today. Patient is being continued on antibiotics. Patient is stable to be discharged to rehab. No acute overnight issues. EEG is normal. Plan: Patient was be continued on pain medications and continue with antibiotics in the form of daptomycin. Monitor sodium level. Improved to 137. Fluid restriction. Continue the home medications and follow closely. Prognosis is guarded with multiple medical problems and frequent falls and comorbid conditions. PT OT was consulted and possible infection care facility discharge. Patient is lying in the bed comfortably, no acute distress, awake alert and oriented. Poor historian.. HEENT: Normocephalic. Neck is supple. Pupils reactive. Nostrils clear. Oral cavity is moist. Ears reveal no drainage. Neck reveals no JVD, carotid bruits, or thyromegaly. CHEST EXAMINATION: Trachea is central. Symmetrical expansion. Diminished bibasilar air entry Lung srinivasan clear to auscultation and percussion. CARDIAC: Normal S1, S2 with no gallops. No murmurs ABDOMEN: Soft. Bowel sounds normal. No organomegaly. No abdominal bruits. Extremities: reveal no edema. No clubbing or cyanosis Neurologically awake, alert, oriented x3 with well-coordinated movements. No focal deficits noted. Generalized weakness Skin: No rash or skin lesions. Psychiatric: Coperative. Nonsuicidal Musculoskeletal: No joint swelling or deformity. Laceration on the right elbow is glued.. Vital Signs 04/09/18 04/09/18 05:46 12:49 Temperature 97.0 F L 98 F Pulse Rate [ 93 80 Radial] Respiratory 16 18 Rate Blood Pressure 129/65 111/68 [Right Arm] O2 Sat by Pulse 96 98 Oximetry Total time taken greater than 35 minutes including 18 minutes for counseling and coordination of care. Patient Condition at Discharge: Stable Plan - Discharge Summary Discharge Rx Participant: No New Discharge Prescriptions: Continue Montelukast [Singulair] 10 mg PO HS Levothyroxine Sodium [Synthroid] 88 mcg PO QAM Clopidogrel [Plavix] 75 mg PO DAILY Metoprolol Tartrate [Lopressor] 50 mg PO BID DULoxetine HCL [Cymbalta] 60 mg PO BID Fluticasone/Salmeterol [Advair 500-50 Diskus] 1 puff INHALATION RT-BID valACYclovir HCL [Valtrex] 1,000 mg PO DAILY PRN PRN Reason: Cold Sores Aspirin 81 mg PO HS Ondansetron HCl [Zofran] 8 mg PO Q12HR PRN PRN Reason: Nausea cycloSPORINE [Restasis] 1 drops BOTH EYES BID Vitamin B Complex 1 cap PO DAILY Biotin 5 mg PO DAILY Ferrous Sulfate [Feosol] 325 mg PO DAILY Ascorbic Acid [Vitamin C] 1,000 mg PO DAILY Cholecalciferol [Vitamin D3] 5,000 unit PO DAILY Losartan Potassium 100 mg PO DAILY Levalbuterol Hfa Inhaler [Xopenex Hfa Inhaler] 1 - 2 puff INHALATION RT-Q6H PRN PRN Reason: Shortness Of Breath EPINEPHrine [Auvi-Q] 0.3 mg IM ONCE PRN PRN Reason: Allergic Reaction Carbidopa-Levodopa 25-100 mg [Sinemet 25-100 mg] 1 tab PO HS Bisacodyl 5 mg PO DAILY PRN PRN Reason: Constipation amLODIPine [Norvasc] 10 mg PO BID Folic Acid 1 mg PO DAILY@1200 #30 tab Thiamine [Vitamin B-1] 100 mg PO DAILY@1200 #30 tab Multivitamins, Thera [Multivitamin (formulary)] 1 tab PO DAILY@1200 DAPTOmycin [Cubicin] 500 mg IV DAILY #8 bag Discharge Medication List Clopidogrel [Plavix] 75 mg PO DAILY 01/04/14 [History] DULoxetine HCL [Cymbalta] 60 mg PO BID 01/04/14 [History] Fluticasone/Salmeterol [Advair 500-50 Diskus] 1 puff INHALATION RT-BID 01/04/14 [History] Levothyroxine Sodium [Synthroid] 88 mcg PO QAM 01/04/14 [History] Metoprolol Tartrate [Lopressor] 50 mg PO BID 01/04/14 [History] Montelukast [Singulair] 10 mg PO HS 01/04/14 [History] Aspirin 81 mg PO HS 02/07/14 [History] valACYclovir HCL [Valtrex] 1,000 mg PO DAILY PRN 02/07/14 [History] Ondansetron HCl [Zofran] 8 mg PO Q12HR PRN 02/21/15 [History] Vitamin B Complex 1 cap PO DAILY 02/21/15 [History] cycloSPORINE [Restasis] 1 drops BOTH EYES BID 02/21/15 [History] Biotin 5 mg PO DAILY 04/26/15 [History] Ferrous Sulfate [Feosol] 325 mg PO DAILY 04/26/15 [History] Ascorbic Acid [Vitamin C] 1,000 mg PO DAILY 05/13/16 [History] Bisacodyl 5 mg PO DAILY PRN 03/26/18 [History] Carbidopa-Levodopa 25-100 mg [Sinemet 25-100 mg] 1 tab PO HS 03/26/18 [History] Cholecalciferol [Vitamin D3] 5,000 unit PO DAILY 03/26/18 [History] EPINEPHrine [Auvi-Q] 0.3 mg IM ONCE PRN 03/26/18 [History] Levalbuterol Hfa Inhaler [Xopenex Hfa Inhaler] 1 - 2 puff INHALATION RT-Q6H PRN 03/26/18 [History] Losartan Potassium 100 mg PO DAILY 03/26/18 [History] amLODIPine [Norvasc] 10 mg PO BID 03/26/18 [History] Folic Acid 1 mg PO DAILY@1200 #30 tab 04/02/18 [Rx] Thiamine [Vitamin B-1] 100 mg PO DAILY@1200 #30 tab 04/02/18 [Rx] Multivitamins, Thera [Multivitamin (formulary)] 1 tab PO DAILY@1200 04/06/18 [ History] DAPTOmycin [Cubicin] 500 mg IV DAILY #8 bag 04/08/18 [Rx] Follow up Appointment(s)/Referral(s): Kaur Cabello MD [Primary Care Provider] - 1-2 days Mendez Krishna MD [STAFF PHYSICIAN] - 2 Weeks Discharge Disposition: TRANSFER TO SNF/ECF
--- NOTE | 2018-04-10 00:19 | P.PN ---
Subjective Progress Note Date: 04/09/18 68-year-old female who has a extensive past medical history including a history of TIA, fibromyalgia, obesity treated by LAP-BAND with adequate success, and severe back pain. She's undergone multiple procedures in the past for her back and several years ago had a spinal cord stimulator placed. She had modestly good control of her pain with this device but eventually broke and was no longer effective. Because of her severe and ongoing back pain she was evaluated and had a trial of a intrathecal pain pump. She had good results and consequently the pain pump was officially placed last month. She was having relatively good control of her pain that she started to feel very poorly. She had fevers and presented to a local hospital. There was concerns because she had fever she was infection of her pain pump was transferred to the facility where it was implanted. Those records are available for review. She was seen by infectious diseases and the implanting surgeon. Imaging studies reveal evidence of the fluid collection near the implant and aspiration was obtained which failed to reveal evidence of underlying infection. No cultures were noted be positive from the local hospital or the outside hospital when cultures were obtained. The patient or continue to feel worse over time it was progressive fatigue and malaise and fever she presented to our emergency center for further evaluation and was admitted to the hospital from March 26 through April 06 which time she was treated for MRSA bacteremia of unclear etiology but limited bacteremia making it less likely the pain pump is infected. EKG did not show endocarditis. Patient was started on daptomycin and was discharged to the [facility] on April 06. When she arrived she ended up falling onto stairs hitting her head with no loss of consciousness and sustained laceration to the right elbow. She was brought back to [facility] emergency center for evaluation. She underwent a CAT scan of the head and cervical spine that showed mild cerebral atrophy. No acute intracranial process. Minor spondylitic changes in the cervical spine. No fracture. Humerus x-ray showed no fracture. Chest x-ray was normal. Hip x- ray showed no fracture or dislocation. Patient did sustain a laceration to the right elbow that did not require suturing. Her initial white count was 11.2, temperature max 100.8. AST 53, blood culture showing no growth after 24 hours. Urinalysis was negative. Patient is scheduled for discharge to medical [facility] for subacute rehab. Patient is denying any fever or chills. She does complain of head discomfort and neck discomfort. She had the back of her head but there is no laceration or ecchymosis noted. She denies any chest pain or shortness of breath. No nausea, vomiting, diarrhea. She denies any dysuria. She does have ecchymosis to the right hip. Patient has been continued on daptomycin and she'll complete her course on April 16. 04/09/2018 patient is improving is being readied for transfer out of hospitals complete her intravenous antibiotic therapy through 04/16/2018. Objective - Vital Signs Vital signs: Vital Signs Temp 98 F 04/09/18 12:49 Pulse 80 04/09/18 12:49 Resp 18 04/09/18 12:49 BP 111/68 04/09/18 12:49 Pulse Ox 98 04/09/18 12:49 Intake & Output 04/09/18 04/09/18 04/10/18 06:59 18:59 06:59 Intake Total 1290 190 Balance 1290 190 Intake: Intake, IV Titration 220 190 Amount DAPTOmycin 500 mg In 50 Sodium Chloride 0.9% 50 ml @ 100 mls/hr IVPB Q24HR DENICE Rx#:[id number] Sodium Chloride 0.9% 1, 220 140 000 ml @ 20 mls/hr IV . Q24H DENICE Rx#:[id number] Oral 1070 Other: Voiding Method Toilet Toilet # Voids 2 - Exam GEN: 68-year-old woman sitting in a chair at the bedside. HEENT: Anicteric conjunctiva are pink and moist nasal mucosa grossly intact without significant lesions, there is no thrush. No ecchymosis or wounds noted to the scalp. Neck: The neck is supple without significant lymphadenopathy or thyromegaly. Lungs: Good bilateral air entry without significant crackles or wheezing. There is no significant bronchial sounds. Heart: Regular rate and rhythm with an audible S1-S2, no S3 no S4. There is no significant murmur click or rub, PMI was nondisplaced. Abdomen: Positive bowel sounds soft and nontender without palpable masses or organomegaly. There was no guarding or rebound. Extremities: The upper extremities have excellent pulses they are symmetric. There is a dressing in place to the right forearm and elbow. This was not removed for evaluation and referred to Dr. Krishna. Please see nursing documentation of the wound. Lower extremities have trace bilateral lower extremity edema. Pulses are 2+ and symmetric Neuro: Awake alert oriented to person place and time. There are no acute gross focal sensory motor deficits. - Labs CBC & Chem 7: 04/08/18 07:02 04/08/18 07:02 Labs: Microbiology - Last 24 Hours (Table) 04/07/18 00:50 Blood Culture - Preliminary Blood No Growth after 48 hours Laboratory Results WBC 7.7 k/uL (3.8-10.6) 04/08/18 07:02 RBC 3.26 m/uL (3.80-5.40) L 04/08/18 07:02 Hgb 9.0 gm/dL (11.4-16.0) L 04/08/18 07:02 Hct 27.7 % (34.0-46.0) L 04/08/18 07:02 MCV 84.9 fL (80.0-100.0) 04/08/18 07:02 MCH 27.7 pg (25.0-35.0) 04/08/18 07:02 MCHC 32.6 g/dL (31.0-37.0) 04/08/18 07:02 RDW 13.4 % (11.5-15.5) 04/08/18 07:02 Plt Count 244 k/uL (150-450) 04/08/18 07:02 Neutrophils % 65 % 04/08/18 07:02 Lymphocytes % 18 % 04/08/18 07:02 Monocytes % 7 % 04/08/18 07:02 Eosinophils % 8 % 04/08/18 07:02 Basophils % 0 % 04/08/18 07:02 Neutrophils # 5.0 k/uL (1.3-7.7) 04/08/18 07:02 Lymphocytes # 1.4 k/uL (1.0-4.8) 04/08/18 07:02 Monocytes # 0.5 k/uL (0-1.0) 04/08/18 07:02 Eosinophils # 0.6 k/uL (0-0.7) 04/08/18 07:02 Basophils # 0.0 k/uL (0-0.2) 04/08/18 07:02 Sodium 137 mmol/L (137-145) 04/08/18 07:02 Potassium 4.2 mmol/L (3.5-5.1) 04/08/18 07:02 Chloride 104 mmol/L (98-107) 04/08/18 07:02 Carbon Dioxide 25 mmol/L (22-30) 04/08/18 07:02 Anion Gap 8 mmol/L 04/08/18 07:02 BUN 8 mg/dL (7-17) 04/08/18 07:02 Creatinine 0.60 mg/dL (0.52-1.04) 04/08/18 07:02 Est GFR (CKD-EPI)AfAm >90 (>60 ml/min/1.73 sqM) 04/08/18 07:02 Est GFR (CKD-EPI)NonAf >90 (>60 ml/min/1.73 sqM) 04/08/18 07:02 Glucose 88 mg/dL (74-99) 04/08/18 07:02 Plasma Lactic Acid Anjel 1.1 mmol/L (0.7-2.0) 04/07/18 01:27 Calcium 8.9 mg/dL (8.4-10.2) 04/08/18 07:02 Magnesium 1.3 mg/dL (1.6-2.3) L 04/06/18 22:24 Total Bilirubin 0.6 mg/dL (0.2-1.3) 04/06/18 22:24 AST 53 U/L (14-36) H 04/06/18 22:24 ALT 32 U/L (9-52) 04/06/18 22:24 Alkaline Phosphatase 64 U/L (38-126) 04/06/18 22:24 Total Protein 5.8 g/dL (6.3-8.2) L 04/06/18 22:24 Albumin 3.2 g/dL (3.5-5.0) L 04/06/18 22:24 Urine Color Yellow 04/07/18 01:09 Urine Appearance Clear (Clear) 04/07/18 01:09 Urine pH 6.0 (5.0-8.0) 04/07/18 01:09 Ur Specific [place] 1.020 (1.001-1.035) 04/07/18 01:09 Urine Protein 1+ (Negative) H 04/07/18 01:09 Urine Glucose (UA) Negative (Negative) 04/07/18 01:09 Urine Ketones Negative (Negative) 04/07/18 01:09 Urine Blood Negative (Negative) 04/07/18 01:09 Urine Nitrite Negative (Negative) 04/07/18 01:09 Urine Bilirubin Negative (Negative) 04/07/18 01:09 Urine Urobilinogen <2.0 mg/dL (<2.0) 04/07/18 01:09 Ur Leukocyte Esterase Negative (Negative) 04/07/18 01:09 Urine RBC 4 /hpf (0-5) 04/07/18 01:09 Urine WBC 4 /hpf (0-5) 04/07/18 01:09 Ur Squamous Epith Cells 4 /hpf (0-4) 04/07/18 01:09 Amorphous Sediment Rare /hpf (None) H 04/07/18 01:09 Urine Bacteria Rare /hpf (None) H 04/07/18 01:09 Hyaline Casts 6 /lpf (0-2) H 04/07/18 01:09 Urine Mucus Rare /hpf (None) H 04/07/18 01:09 Microbiology 04/07/18 00:50 Blood Blood Culture - Preliminary No Growth after 48 hours 04/07/18 01:09 Urine,Clean Catch Urine Culture - Final Assessment and Plan (1) Gram-positive cocci bacteremia Narrative/Plan: 68-year-old woman recently discharged from Hospital suffered a fall at the facility that she was staying at, daughter relates that she was wanting to go outside, consequently they went outside and after a few steps she went to reach for the Club W and fell onto her right side EMS was called to bring her to hospital. She has extensive bruising but no fractures were found. As noted the patient has had the recent bacteremic event that was short- lived. Does not appear to have evidence of infection at her pain pump, and she did have evaluation of the outside hospital that failed to reveal evidence at that site also. The plan will be to complete the 2 weeks of intravenous antibiotic therapy with daptomycin for the limited MRSA bacteremia. The goal was to monitor her after antibiotic therapy is complete. If there is recurrent infection there were need to have hardware removed including the old spinal stimulator. Patient's and [id number] are present and understand the current clinical plan. Discharge plan is being currently instructed, with her many ALLERGIES daptomycin is her only viable option. We'll transfer to extended care to complete her course of antibiotic therapy as well as physical therapy to improve her strength so that she is able to become independent in function in her home situation in the future. Status: Acute Code(s): R78.81 - BACTEREMIA SNOMED Code(s): 781810961048
== END 2018-04-09 15:35 | DRG 604 ==
LOC: EC 20:11 → OBSVTOIN 22:12 → 3OBS 22:12 → 5MS5E 04-07 00:43
PROVIDERS: ADMIT Internal Medicine; ATTEND Internal Medicine
PROC: 0HQDXZZ Repair Right Lower Arm Skin, External Approach (ICD-10-PCS; principal; 2018-04-06)
DX: S51.011A Laceration without foreign body of right elbow, initial encounter (principal); A41.02 Sepsis due to Methicillin resistant Staphylococcus aureus; E22.2 Syndrome of inappropriate secretion of antidiuretic hormone; E23.2 Diabetes insipidus; I42.9 Cardiomyopathy, unspecified; W10.9XXA Fall (on) (from) unspecified stairs and steps, initial encounter; Z91.81 History of falling; D50.9 Iron deficiency anemia, unspecified; E03.9 Hypothyroidism, unspecified; E78.5 Hyperlipidemia, unspecified; E83.42 Hypomagnesemia; F41.0 Panic disorder [episodic paroxysmal anxiety]; G47.33 Obstructive sleep apnea (adult) (pediatric); G89.4 Chronic pain syndrome; I12.9 Hypertensive chronic kidney disease with stage 1 through stage 4 chronic kidney disease, or unspecified chronic kidney disease; J45.909 Unspecified asthma, uncomplicated; K21.9 Gastro-esophageal reflux disease without esophagitis; M19.90 Unspecified osteoarthritis, unspecified site; M79.7 Fibromyalgia; N18.3 Chronic kidney disease, stage 3 (moderate); R29.6 Repeated falls; Z79.02 Long term (current) use of antithrombotics/antiplatelets; Z82.3 Family history of stroke; Z85.830 Personal history of malignant neoplasm of bone; Z86.14 Personal history of Methicillin resistant Staphylococcus aureus infection; Z86.72 Personal history of thrombophlebitis; Z86.73 Personal history of transient ischemic attack (TIA), and cerebral infarction without residual deficits; Z87.442 Personal history of urinary calculi; Z90.49 Acquired absence of other specified parts of digestive tract; Z90.710 Acquired absence of both cervix and uterus; Z96.653 Presence of artificial knee joint, bilateral; Z96.89 Presence of other specified functional implants; Z98.84 Bariatric surgery status; R53.81 Other malaise; Z88.6 Allergy status to analgesic agent; Z88.1 Allergy status to other antibiotic agents; Z91.041 Radiographic dye allergy status; Z91.011 Allergy to milk products; Z88.5 Allergy status to narcotic agent; Z88.7 Allergy status to serum and vaccine; Z88.2 Allergy status to sulfonamides; Z88.8 Allergy status to other drugs, medicaments and biological substances; Z91.018 Allergy to other foods
CPT/HCPCS: 12002; 36415; 70450; 71046; 72125; 73502; 80048; 80053; 81001; 83605; 83735; 85025; 87040; 87086; 94640; 95816; 96365; 96366; 96367; 99285

== ENCOUNTER 2018-04-14 14:33 | Inpatient (IN) | payer MEDICARE ==
[2018-04-14] MEDS ORDERED: ACETAMINOPHEN TAB 500 MG TAB PO STA (14:55)
[2018-04-14] MEDS: SODIUM CHLORIDE 0.9% 500 ML IV SCH (15:00)
--- NOTE | 2018-04-14 15:06 | ED ---
General Adult HPI - General Chief complaint: Chest Pain Stated complaint: Abnormal Labs Time Seen by Provider: 04/14/18 15:00 Source: patient, RN notes reviewed Mode of arrival: EMS Limitations: no limitations - History of Present Illness Initial comments: This is a 68-year-old female presents emergency Department complaining of having a fever and having some chest pain. Patient was recently in the hospital for MRSA in the urine according to the patient. Patient states today she started having some chest pain went to see her PCP and he sent her to the hospital because of a high fever. Patient currently denies any chest pain. Patient states she has the chills but does not have any shortness of breath or difficulty breathing at this time. Patient denies any palpitations. Patient denies headache patient denies numbness weakness. Patient denies abdominal pain patient denies nausea vomiting diarrhea. Patient states she has a wound on her right elbow that is healing. - Related Data Home Medications Medication Instructions Recorded Confirmed Clopidogrel [Plavix] 75 mg PO DAILY 01/04/14 04/14/18 DULoxetine HCL [Cymbalta] 60 mg PO BID 01/04/14 04/14/18 Fluticasone/Salmeterol [Advair 1 puff INHALATION RT-BID 01/04/14 04/14/18 500-50 Diskus] Levothyroxine Sodium [Synthroid] 88 mcg PO QAM 01/04/14 04/14/18 Metoprolol Tartrate [Lopressor] 50 mg PO BID 01/04/14 04/14/18 Montelukast [Singulair] 10 mg PO HS 01/04/14 04/14/18 Aspirin 81 mg PO HS 02/07/14 04/14/18 valACYclovir HCL [Valtrex] 1,000 mg PO DAILY PRN 02/07/14 04/14/18 Ondansetron HCl [Zofran] 8 mg PO Q12HR PRN 02/21/15 04/14/18 Vitamin B Complex 1 cap PO DAILY 02/21/15 04/14/18 cycloSPORINE [Restasis] 1 drops BOTH EYES BID 02/21/15 04/14/18 Biotin 5 mg PO DAILY 04/26/15 04/14/18 Ferrous Sulfate [Feosol] 325 mg PO DAILY 04/26/15 04/14/18 Ascorbic Acid [Vitamin C] 1,000 mg PO DAILY 05/13/16 04/14/18 Bisacodyl 5 mg PO DAILY PRN 03/26/18 04/14/18 Carbidopa-Levodopa 25-100 mg 1 tab PO HS 03/26/18 04/14/18 [Sinemet 25-100 mg] Cholecalciferol [Vitamin D3] 5,000 unit PO DAILY 03/26/18 04/14/18 EPINEPHrine [Auvi-Q] 0.3 mg IM ONCE PRN 03/26/18 04/14/18 Levalbuterol Hfa Inhaler [Xopenex 2 puff INHALATION RT-Q6H PRN 03/26/18 04/14/18 Hfa Inhaler] Losartan Potassium 100 mg PO DAILY 03/26/18 04/14/18 amLODIPine [Norvasc] 10 mg PO BID 03/26/18 04/14/18 Multivitamins, Thera [Multivitamin 1 tab PO DAILY@1200 04/06/18 04/14/18 (formulary)] Previous Rx's Medication Instructions Recorded Folic Acid 1 mg PO DAILY@1200 #30 tab 04/02/18 Thiamine [Vitamin B-1] 100 mg PO DAILY@1200 #30 tab 04/02/18 DAPTOmycin [Cubicin] 500 mg IV DAILY #8 bag 04/08/18 Allergies Allergy/AdvReac Type Severity Reaction Status Date / Time aripiprazole [From Abilify] Allergy Anaphylaxis Verified 04/14/18 15:42 baclofen Allergy Anaphylaxis Verified 04/14/18 15:42 butalbital [From Fioricet] Allergy Rash/Hives Verified 04/14/18 15:42 cefadroxil hydrate Allergy Rash/Hives Verified 04/14/18 15:42 [From Duricef] cefazolin sodium Allergy Anaphylaxis Verified 04/14/18 15:42 [From Kefzol] cephalexin monohydrate Allergy Anaphylaxis Verified 04/14/18 15:42 [From Keflex] ciprofloxacin [From Cipro] Allergy Swelling Verified 04/14/18 15:42 OF THROAT ,RASH AND HIVES ciprofloxacin HCl Allergy Rash/Hives, Verified 04/14/18 15:42 [From Cipro] SWELLING OF THROAT clindamycin HCl Allergy Unknown Verified 04/14/18 15:42 [From Cleocin] clindamycin palmitate HCl Allergy Unknown Verified 04/14/18 15:42 [From Cleocin] clindamycin phosphate Allergy Unknown Verified 04/14/18 15:42 [From Cleocin] dexamethasone [From Decadron] Allergy Anaphylaxis Verified 04/14/18 15:42 dexamethasone sod phosphate Allergy Anaphylaxis Verified 04/14/18 15:42 [From Decadron] ,RASH divalproex sodium Allergy Rash/Hives Verified 04/14/18 15:42 [From Depakote] hydroxyzine HCl [From Atarax] Allergy Unknown Verified 04/14/18 15:42 ibuprofen [From Motrin] Allergy RASH Verified 04/14/18 15:42 ,ITCHING SWELLING OF THROAT influenza virus vaccine, Allergy Anaphylaxis Verified 04/14/18 15:42 specific [Influenza Virus Vacc,Specific] Iodinated Contrast- Oral and Allergy Anaphylaxis Verified 04/14/18 15:42 IV Dye ketorolac tromethamine Allergy Chest Pain Verified 04/14/18 15:42 [From Toradol] lidocaine HCl Allergy Anaphylaxis Verified 04/14/18 15:42 [From Xylocaine] lisinopril Allergy Swelling Verified 04/14/18 15:42 meperidine HCl [From Demerol] Allergy Rash/Hives Verified 04/14/18 15:42 Milk Containing Products Allergy ABDOMINAL Verified 04/14/18 15:42 PAIN NAUSEA AND VOMITING morphine Allergy Vomiting Verified 04/14/18 15:42 Mushroom Allergy Anaphylaxis Verified 04/14/18 15:42 nortriptyline HCl Allergy Unknown Verified 04/14/18 15:42 [From Pamelor] omalizumab [From Xolair] Allergy Anaphylaxis Verified 04/14/18 15:42 Penicillins Allergy Rash/Hives Verified 04/14/18 15:42 pregabalin [From Lyrica] Allergy Rash/Hives Verified 04/14/18 15:42 procaine HCl [From Novocain] Allergy Unknown Verified 04/14/18 15:42 shellfish derived Allergy Anaphylaxis Verified 04/14/18 15:42 sulfamethoxazole Allergy Unknown Verified 04/14/18 15:42 [From Septra] tetracycline [Tetracycline] Allergy Rash/Hives Verified 04/14/18 15:42 theophylline anhydrous Allergy Unknown Verified 04/14/18 15:42 [From Joel-Dur] triamcinolone Allergy Anaphylaxis Verified 04/14/18 15:42 trimethoprim [From Septra] Allergy RASH, Verified 04/14/18 15:42 ITCHING vancomycin Allergy ITCHING Verified 04/14/18 15:42 ,HIVES wheat Allergy Rash/Hives Verified 04/14/18 15:42 yellow dye Allergy Anaphylaxis Verified 04/14/18 15:42 erythromycin base AdvReac Rash/Hives Verified 04/14/18 15:42 fentanyl [From Duragesic] AdvReac Unknown Verified 04/14/18 15:42 NSAIDS (Non-Steroidal AdvReac Unknown Verified 04/14/18 15:42 Anti-Inflamma verapamil AdvReac Rash/Hives Verified 04/14/18 15:42 PAPER TAPE Allergy Rash/BLISTE Uncoded 04/14/18 14:39 RS PERSERATIVE IN ALBUTEROL Allergy Dyspnea Uncoded 04/14/18 14:39 INHALER PU steroids Allergy Rash/Hives Uncoded 04/14/18 14:39 WHITE SUTURE Allergy Swelling Uncoded 04/14/18 14:39 Review of Systems ROS Statement: Those systems with pertinent positive or pertinent negative responses have been documented in the HPI. ROS Other: All systems not noted in ROS Statement are negative. Past Medical History Past Medical History: Asthma, Cancer, Chest Pain / Angina, CVA/TIA, Fibromyalgia , GERD/Reflux, Hyperlipidemia, Hypertension, Osteoarthritis (OA), Renal Disease , Sleep Apnea/CPAP/BIPAP, Thyroid Disorder Additional Past Medical History / Comment(s): Pt recently admitted to [facility] on 03/26/18 with UTI/sepsis, hyponatremia/SIADH, hypomagnesemia, hypokalemia and bacterial MRSA. Other HX: Frequent falls, bilateral weakness from CVAs and loss of equalibrium-also had bilateral facial droops that resolve, pt states she has had 6 CVAs total, TIAs, L leg bone cancer and entire leg has titanium rods, R knee arthroplasty-pt fell and damaged artificial joint, chronic back pain, carpal tunnel syndrome bilateral elbows/shoulders, DJD, diabetes insipidus, LAUREN with no device since weight loss, CKD stage III, [place] bilaterally, anemia. History of Any Multi-Drug Resistant Organisms: MRSA Date of last positivie culture/infection: 03/26/18 MDRO Source:: BLOOD Past Surgical History: Appendectomy, Back Surgery, Bariatric Surgery, Cholecystectomy, Heart Catheterization, Hysterectomy, Joint Replacement, Orthopedic Surgery, Tubal Ligation Additional Past Surgical History / Comment(s): 04/02/18 PICC line for ABX, Lap band with removal, gastric sleeve, L leg titanium rods, R total knee arthroplasty, bilateral wrist carpal tunnel releases, R great toe surgery to remove a growth, lithotripsy, pain stimulator-nonfunctioning, pain clinic procedures, bilateral cataract removals. Past Anesthesia/Blood Transfusion Reactions: Previous Problems w/ Anesthesia Additional Past Anesthesia/Blood Transfusion Reaction / Comment(s): Slow to wake. Past Psychological History: Anxiety, Depression, Panic Disorder Smoking Status: Never smoker - Past Family History Mother Family Medical History: CVA/TIA Daughter(s) Family Medical History: Deep Vein Thrombosis (DVT) Additional Family Medical History / Comment(s): dvt Father Additional Family Medical History / Comment(s): pt was 7 years old when her father was murdered/ from gsw General Exam - General Exam Comments Initial Comments: GENERAL: Patient is well-developed and well-nourished. Patient is nontoxic and well- hydrated and is in mild distress. ENT: Neck is soft and supple. No significant lymphadenopathy is noted. Oropharynx is clear. Moist mucous membranes. Neck has full range of motion without eliciting any pain. EYES: The sclera were anicteric and conjunctiva were pink and moist. Extraocular movements were intact and pupils were equal round and reactive to light. Eyelids were unremarkable. PULMONARY: Unlabored respirations. Good breath sounds bilaterally. No audible rales rhonchi or wheezing was noted. CARDIOVASCULAR: There is a regular rate and rhythm without any murmurs gallops or rubs. ABDOMEN: Soft and nontender with normal bowel sounds. No palpable organomegaly was noted. There is no palpable pulsatile mass. SKIN: Skin is clear with no lesions or rashes and otherwise unremarkable. NEUROLOGIC: Patient is alert and oriented x3. Cranial nerves II through XII are grossly intact. Motor and sensory are also intact. Normal speech, volume and content. Symmetrical smile. MUSCULOSKELETAL: Normal extremities with adequate strength and full range of motion. No lower extremity swelling or edema. No calf tenderness. LYMPHATICS: No significant lymphadenopathy is noted PSYCHIATRIC: Normal psychiatric evaluation. Limitations: no limitations Course Vital Signs 04/14/18 04/14/18 04/14/18 14:34 15:57 17:11 Temperature 101.3 F H 98.9 F 99 F Pulse Rate 88 88 85 Respiratory 16 16 16 Rate Blood Pressure 126/68 147/74 106/59 O2 Sat by Pulse 98 98 97 Oximetry 04/14/18 18:39 Temperature 97.8 F Pulse Rate 79 Respiratory 16 Rate Blood Pressure 111/59 O2 Sat by Pulse 97 Oximetry Medical Decision Making - Lab Data Result diagrams: 04/14/18 15:07 04/14/18 15:07 Lab Results 04/14/18 04/14/18 04/14/18 Range/Units 15:07 15:07 15:07 WBC 9.4 (3.8-10.6) k/uL RBC 3.50 L (3.80-5.40) m/uL Hgb 9.7 L (11.4-16.0) gm/dL Hct 29.9 L (34.0-46.0) % MCV 85.4 (80.0-100.0) fL MCH 27.8 (25.0-35.0) pg MCHC 32.5 (31.0-37.0) g/dL RDW 13.6 (11.5-15.5) % Plt Count 468 H (150-450) k/uL Neutrophils % 77 % Lymphocytes % 14 % Monocytes % 3 % Eosinophils % 5 % Basophils % 0 % Neutrophils # 7.2 (1.3-7.7) k/uL Lymphocytes # 1.4 (1.0-4.8) k/uL Monocytes # 0.3 (0-1.0) k/uL Eosinophils # 0.5 (0-0.7) k/uL Basophils # 0.0 (0-0.2) k/uL PT (9.0-12.0) sec INR (<1.2) APTT (22.0-30.0) sec Sodium 130 L (137-145) mmol/L Potassium 4.6 (3.5-5.1) mmol/L Chloride 95 L (98-107) mmol/L Carbon Dioxide 23 (22-30) mmol/L Anion Gap 12 mmol/L BUN 9 (7-17) mg/dL Creatinine 0.60 (0.52-1.04) mg/dL Est GFR (CKD-EPI)AfAm >90 (>60 ml/min/1.73 sqM) Est GFR (CKD-EPI)NonAf >90 (>60 ml/min/1.73 sqM) Glucose 108 H (74-99) mg/dL Plasma Lactic Acid Anjel (0.7-2.0) mmol/L Calcium 9.4 (8.4-10.2) mg/dL Total Bilirubin 0.6 (0.2-1.3) mg/dL AST 37 H (14-36) U/L ALT 50 (9-52) U/L Alkaline Phosphatase 73 (38-126) U/L Troponin I <0.012 (0.000-0.034) ng/mL Total Protein 6.4 (6.3-8.2) g/dL Albumin 3.5 (3.5-5.0) g/dL Urine Color Urine Appearance (Clear) Urine pH (5.0-8.0) Ur Specific [place] (1.001-1.035) Urine Protein (Negative) Urine Glucose (UA) (Negative) Urine Ketones (Negative) Urine Blood (Negative) Urine Nitrite (Negative) Urine Bilirubin (Negative) Urine Urobilinogen (<2.0) mg/dL Ur Leukocyte Esterase (Negative) 04/14/18 04/14/18 04/14/18 Range/Units 15:07 15:07 16:05 WBC (3.8-10.6) k/uL RBC (3.80-5.40) m/uL Hgb (11.4-16.0) gm/dL Hct (34.0-46.0) % MCV (80.0-100.0) fL MCH (25.0-35.0) pg MCHC (31.0-37.0) g/dL RDW (11.5-15.5) % Plt Count (150-450) k/uL Neutrophils % % Lymphocytes % % Monocytes % % Eosinophils % % Basophils % % Neutrophils # (1.3-7.7) k/uL Lymphocytes # (1.0-4.8) k/uL Monocytes # (0-1.0) k/uL Eosinophils # (0-0.7) k/uL Basophils # (0-0.2) k/uL PT 10.3 (9.0-12.0) sec INR 1.1 (<1.2) APTT 25.3 (22.0-30.0) sec Sodium (137-145) mmol/L Potassium (3.5-5.1) mmol/L Chloride (98-107) mmol/L Carbon Dioxide (22-30) mmol/L Anion Gap mmol/L BUN (7-17) mg/dL Creatinine (0.52-1.04) mg/dL Est GFR (CKD-EPI)AfAm (>60 ml/min/1.73 sqM) Est GFR (CKD-EPI)NonAf (>60 ml/min/1.73 sqM) Glucose (74-99) mg/dL Plasma Lactic Acid Anjel 0.9 (0.7-2.0) mmol/L Calcium (8.4-10.2) mg/dL Total Bilirubin (0.2-1.3) mg/dL AST (14-36) U/L ALT (9-52) U/L Alkaline Phosphatase (38-126) U/L Troponin I (0.000-0.034) ng/mL Total Protein (6.3-8.2) g/dL Albumin (3.5-5.0) g/dL Urine Color Yellow Urine Appearance Clear (Clear) Urine pH 7.5 (5.0-8.0) Ur Specific [place] 1.012 (1.001-1.035) Urine Protein Trace H (Negative) Urine Glucose (UA) Negative (Negative) Urine Ketones Negative (Negative) Urine Blood Negative (Negative) Urine Nitrite Negative (Negative) Urine Bilirubin Negative (Negative) Urine Urobilinogen <2.0 (<2.0) mg/dL Ur Leukocyte Esterase Negative (Negative) Disposition Clinical Impression: Infected drug delivery pump Disposition: ADMITTED IP TO THIS [facility] Condition: Serious Time of Disposition: 16:50
--- NOTE | 2018-04-14 15:23 | P.HPIM ---
History of Present Illness patient is a 68-year-old female was recently discharged from the hospital after she was treated for MRSA bacteremia. Source at the time was unclear although patient had recent pain pump placement. Patient apparently had a spinal stable at rest. Patient was discharged on daptomycin and of this month comes back again with fevers repeat blood cultures are being obtained daptomycin will be resumed infectious disease will be consulted again. Additionally patient is comparing of chest pain on and off bleeding duration 5/10 in severity nonradiating patient is not a very good historian and she was not clear about diaphoresis denied any shortness of breath associated with that no radiation of the chest pain EKG was ordered troponins were ordered all the lab testing is still pending. Review of Systems REVIEW OF SYSTEMS: CONSTITUTIONAL:as mentioned above HEENT: No recent visual problems or hearing problems. Denied any sore throat. CARDIOVASCULAR: No orthopnea, PND, no palpitations, no syncope. PULMONARY: No shortness of breath, no cough, no hemoptysis. GASTROINTESTINAL: No diarrhea, no nausea, no vomiting, no abdominal pain. Normoactive bowel sounds. NEUROLOGICAL: No headaches, no weakness, no numbness. HEMATOLOGICAL: Denies any bleeding or petechiae. GENITOURINARY: Denies any burning micturition, frequency, or urgency. MUSCULOSKELETAL/RHEUMATOLOGICAL: Denies any joint pain, swelling, or any muscle pain. ENDOCRINE: Denies any polyuria or polydipsia. The rest of the 14-point review of systems is negative. Past Medical History Past Medical History: Asthma, Cancer, Chest Pain / Angina, CVA/TIA, Fibromyalgia , GERD/Reflux, Hyperlipidemia, Hypertension, Osteoarthritis (OA), Renal Disease , Sleep Apnea/CPAP/BIPAP, Thyroid Disorder Additional Past Medical History / Comment(s): Pt recently admitted to [facility] on 03/26/18 with UTI/sepsis, hyponatremia/SIADH, hypomagnesemia, hypokalemia and bacterial MRSA. Other HX: Frequent falls, bilateral weakness from CVAs and loss of equalibrium-also had bilateral facial droops that resolve, pt states she has had 6 CVAs total, TIAs, L leg bone cancer and entire leg has titanium rods, R knee arthroplasty-pt fell and damaged artificial joint, chronic back pain, carpal tunnel syndrome bilateral elbows/shoulders, DJD, diabetes insipidus, LAUREN with no device since weight loss, CKD stage III, TULALIP bilaterally, anemia. History of Any Multi-Drug Resistant Organisms: MRSA Date of last positivie culture/infection: 03/26/18 MDRO Source:: BLOOD Past Surgical History: Appendectomy, Back Surgery, Bariatric Surgery, Cholecystectomy, Heart Catheterization, Hysterectomy, Joint Replacement, Orthopedic Surgery, Tubal Ligation Additional Past Surgical History / Comment(s): 04/02/18 PICC line for ABX, Lap band with removal, gastric sleeve, L leg titanium rods, R total knee arthroplasty, bilateral wrist carpal tunnel releases, R great toe surgery to remove a growth, lithotripsy, pain stimulator-nonfunctioning, pain clinic procedures, bilateral cataract removals. Past Anesthesia/Blood Transfusion Reactions: Previous Problems w/ Anesthesia Additional Past Anesthesia/Blood Transfusion Reaction / Comment(s): Slow to wake. Past Psychological History: Anxiety, Depression, Panic Disorder Smoking Status: Never smoker - Past Family History Mother Family Medical History: CVA/TIA Daughter(s) Family Medical History: Deep Vein Thrombosis (DVT) Additional Family Medical History / Comment(s): dvt Medications and Allergies Home Medications Medication Instructions Recorded Confirmed Type Clopidogrel [Plavix] 75 mg PO DAILY 01/04/14 04/06/18 History DULoxetine HCL [Cymbalta] 60 mg PO BID 01/04/14 04/06/18 History Fluticasone/Salmeterol [Advair 1 puff INHALATION RT-BID 01/04/14 04/06/18 History 500-50 Diskus] Levothyroxine Sodium [Synthroid] 88 mcg PO QAM 01/04/14 04/06/18 History Metoprolol Tartrate [Lopressor] 50 mg PO BID 01/04/14 04/06/18 History Montelukast [Singulair] 10 mg PO HS 01/04/14 04/06/18 History Aspirin 81 mg PO HS 02/07/14 04/06/18 History valACYclovir HCL [Valtrex] 1,000 mg PO DAILY PRN 02/07/14 04/06/18 History Ondansetron HCl [Zofran] 8 mg PO Q12HR PRN 02/21/15 04/06/18 History Vitamin B Complex 1 cap PO DAILY 02/21/15 04/06/18 History cycloSPORINE [Restasis] 1 drops BOTH EYES BID 02/21/15 04/06/18 History Biotin 5 mg PO DAILY 04/26/15 04/06/18 History Ferrous Sulfate [Feosol] 325 mg PO DAILY 04/26/15 04/06/18 History Ascorbic Acid [Vitamin C] 1,000 mg PO DAILY 05/13/16 04/06/18 History Bisacodyl 5 mg PO DAILY PRN 03/26/18 04/06/18 History Carbidopa-Levodopa 25-100 mg 1 tab PO HS 03/26/18 04/06/18 History [Sinemet 25-100 mg] Cholecalciferol [Vitamin D3] 5,000 unit PO DAILY 03/26/18 04/06/18 History EPINEPHrine [Auvi-Q] 0.3 mg IM ONCE PRN 03/26/18 04/06/18 History Levalbuterol Hfa Inhaler [Xopenex 1 - 2 puff INHALATION RT-Q6H PRN 03/26/18 History Hfa Inhaler] Losartan Potassium 100 mg PO DAILY 03/26/18 04/06/18 History amLODIPine [Norvasc] 10 mg PO BID 03/26/18 04/06/18 History Folic Acid 1 mg PO DAILY@1200 #30 tab 04/02/18 04/06/18 Rx Thiamine [Vitamin B-1] 100 mg PO DAILY@1200 #30 tab 04/02/18 04/06/18 Rx Multivitamins, Thera [Multivitamin 1 tab PO DAILY@1200 04/06/18 04/06/18 History (formulary)] DAPTOmycin [Cubicin] 500 mg IV DAILY #8 bag 04/08/18 Rx Allergies Allergy/AdvReac Type Severity Reaction Status Date / Time aripiprazole [From Abilify] Allergy Anaphylaxis Verified 04/14/18 14:39 baclofen Allergy Anaphylaxis Verified 04/14/18 14:39 butalbital [From Fioricet] Allergy Rash/Hives Verified 04/14/18 14:39 cefadroxil hydrate Allergy Rash/Hives Verified 04/14/18 14:39 [From Duricef] cefazolin sodium Allergy Anaphylaxis Verified 04/14/18 14:39 [From Kefzol] cephalexin monohydrate Allergy Anaphylaxis Verified 04/14/18 14:39 [From Keflex] ciprofloxacin [From Cipro] Allergy Swelling Verified 04/14/18 14:39 OF THROAT ,RASH AND HIVES ciprofloxacin HCl Allergy Rash/Hives, Verified 04/14/18 14:39 [From Cipro] SWELLING OF THROAT clindamycin HCl Allergy Unknown Verified 04/14/18 14:39 [From Cleocin] clindamycin palmitate HCl Allergy Unknown Verified 04/14/18 14:39 [From Cleocin] clindamycin phosphate Allergy Unknown Verified 04/14/18 14:39 [From Cleocin] dexamethasone [From Decadron] Allergy Anaphylaxis Verified 04/14/18 14:39 dexamethasone sod phosphate Allergy Anaphylaxis Verified 04/14/18 14:39 [From Decadron] ,RASH divalproex sodium Allergy Rash/Hives Verified 04/14/18 14:39 [From Depakote] hydroxyzine HCl [From Atarax] Allergy Unknown Verified 04/14/18 14:39 ibuprofen [From Motrin] Allergy RASH Verified 04/14/18 14:39 ,ITCHING SWELLING OF THROAT influenza virus vaccine, Allergy Anaphylaxis Verified 04/14/18 14:39 specific [Influenza Virus Vacc,Specific] Iodinated Contrast- Oral and Allergy Anaphylaxis Verified 04/14/18 14:39 IV Dye ketorolac tromethamine Allergy Chest Pain Verified 04/14/18 14:39 [From Toradol] lidocaine HCl Allergy Anaphylaxis Verified 04/14/18 14:39 [From Xylocaine] lisinopril Allergy Swelling Verified 04/14/18 14:39 meperidine HCl [From Demerol] Allergy Rash/Hives Verified 04/14/18 14:39 Milk Containing Products Allergy ABDOMINAL Verified 04/14/18 14:39 PAIN NAUSEA AND VOMITING morphine Allergy Vomiting Verified 04/14/18 14:39 Mushroom Allergy Anaphylaxis Verified 04/14/18 14:39 nortriptyline HCl Allergy Unknown Verified 04/14/18 14:39 [From Pamelor] omalizumab [From Xolair] Allergy Anaphylaxis Verified 04/14/18 14:39 Penicillins Allergy Rash/Hives Verified 04/14/18 14:39 pregabalin [From Lyrica] Allergy Rash/Hives Verified 04/14/18 14:39 procaine HCl [From Novocain] Allergy Unknown Verified 04/14/18 14:39 shellfish derived Allergy Anaphylaxis Verified 04/14/18 14:39 sulfamethoxazole Allergy Unknown Verified 04/14/18 14:39 [From ] tetracycline [Tetracycline] Allergy Rash/Hives Verified 04/14/18 14:39 theophylline anhydrous Allergy Unknown Verified 04/14/18 14:39 [From Joel-Dur] triamcinolone Allergy Anaphylaxis Verified 04/14/18 14:39 trimethoprim [From Septra] Allergy RASH, Verified 04/14/18 14:39 ITCHING vancomycin Allergy ITCHING Verified 04/14/18 14:39 ,HIVES wheat Allergy Rash/Hives Verified 04/14/18 14:39 yellow dye Allergy Anaphylaxis Verified 04/14/18 14:39 erythromycin base AdvReac Rash/Hives Verified 04/14/18 14:39 fentanyl [From Duragesic] AdvReac Unknown Verified 04/14/18 14:39 NSAIDS (Non-Steroidal AdvReac Unknown Verified 04/14/18 14:39 Anti-Inflamma verapamil AdvReac Rash/Hives Verified 04/14/18 14:39 PAPER TAPE Allergy Rash/BLISTE Uncoded 04/14/18 14:39 RS PERSERATIVE IN ALBUTEROL Allergy Dyspnea Uncoded 04/14/18 14:39 INHALER PU steroids Allergy Rash/Hives Uncoded 04/14/18 14:39 WHITE SUTURE Allergy Swelling Uncoded 04/14/18 14:39 Physical Exam Vitals: Vital Signs Temp Pulse Resp BP Pulse Ox 04/14/18 14:34 101.3 F H 88 16 126/68 98 Intake and Output 04/14/18 04/14/18 04/14/18 06:59 14:59 22:59 Other: Weight 71.214 kg PHYSICAL EXAMINATION: GENERAL: The patient is alert and oriented x3, not in any acute distress. Well developed, well nourished. HEENT: Pupils are round and equally reacting to light. EOMI. No scleral icterus. No conjunctival pallor. Normocephalic, atraumatic. No pharyngeal erythema. No thyromegaly. CARDIOVASCULAR: S1 and S2 present. No murmurs, rubs, or gallops. PULMONARY: Chest is clear to auscultation, no wheezing or crackles. ABDOMEN: Soft, nontender, palpable pain pump in the left lower abdominal area no tenderness to palpation MUSCULOSKELETAL: No joint swelling or deformity. EXTREMITIES: No cyanosis, clubbing, or pedal edema. NEUROLOGICAL: Gross neurological examination did not reveal any focal deficits. SKIN: No rashes. Assessment and Plan Plan: -fever and sepsis had a recent bacteremia with MRSA patient will be resumed and daptomycin, Dr. Krishna infectious disease will be consulted pain pump can be the source of infection. Patient had a recent echocardiogram which showed normal ejection fraction.repeat blood cultures will be obtained -chest pain we will rule out acute medicine syndromes EKG and troponin yet to be obtained -fibromyalgia, chronic pain syndrome and chronic low back pain for which patient has a pain pump hypertension -Hyperlipidemia 11 osteoarthritis -Obstructive sleep apnea on CPAP machine at home -Hypothyroidism -History of diabetes insipidus with chronic hyponatremia -Iron deficiency anemia -History of bariatric surgery her medications still need to be verified once is a verified will do the medication reconciliation
[2018-04-14 15:33] LABS: Basophils % (A) 0 %; Eosinophils # (A) 0.5 k/uL (0-0.7); Eosinophils % (A) 5 %; HCT 29.9 % (34.0-46.0); HGB 9.7 gm/dL (11.4-16.0); Lymphocytes # (A) 1.4 k/uL (1.0-4.8); Lymphocytes % (A) 14 %; MCH 27.8 pg (25.0-35.0); MCHC 32.5 g/dL (31.0-37.0); MCV 85.4 fL (80.0-100.0); Mean Platelet Volume 6.4; Monocytes # (A) 0.3 k/uL (0-1.0); Monocytes % (A) 3 %; Neutrophils # (A) 7.2 k/uL (1.3-7.7); Neutrophils % (A) 77 %; Platelet Count 468 k/uL (150-450); RDW 13.6 % (11.5-15.5); WBC 9.4 k/uL (3.8-10.6)
--- NOTE | 2018-04-14 15:40 | XR ---
EXAMINATION TYPE: XR chest 2V DATE OF EXAM: 04/14/2018 COMPARISON: Prior chest 04/06/2018 HISTORY: Fever TECHNIQUE: Frontal and lateral views of the chest are obtained. FINDINGS: There is no focal air space opacity, pleural effusion, or pneumothorax seen. The cardiac silhouette size is within normal limits. Thoracic cord stimulator is overlying the midthoracic spine as on prior. There are overlying cardiac leads. Arthropathy noted within the shoulders. Postop change s noted in the abdomen. The osseous structures are intact. IMPRESSION: No acute cardiopulmonary process.
[2018-04-14 15:42] LABS: INR 1.1 (<1.2)
[2018-04-14 15:43] LABS: Partial Thromboplastin Time 25.3 sec (22.0-30.0); Prothrombin Time 10.3 sec (9.0-12.0)
[2018-04-14 15:44] LABS: ALT 50 U/L (9-52); AST 37 U/L (14-36); Albumin 3.5 g/dL (3.5-5.0); Alkaline Phosphatase 73 U/L (38-126); Anion Gap 12 mmol/L; Blood Urea Nitrogen 9 mg/dL (7-17); Calcium 9.4 mg/dL (8.4-10.2); Carbon Dioxide 23 mmol/L (22-30); Chloride 95 mmol/L (98-107); Glucose 108 mg/dL (74-99); Potassium 4.6 mmol/L (3.5-5.1); Sodium 130 mmol/L (137-145); Total Bilirubin 0.6 mg/dL (0.2-1.3); Total Protein 6.4 g/dL (6.3-8.2)
[2018-04-14 16:12] LABS: Appearance,Urine Clear (Clear); Bilirubin,Urine Negative (Negative); Blood,Urine Negative (Negative); Color,Urine Yellow; Glucose,Urine (UA) Negative (Negative); Ketones,Urine Negative (Negative); Leukocyte Esterase,Urine Negative (Negative); Nitrite,Urine Negative (Negative); PH, Urine 7.5 (5.0-8.0); Protein,Urine Trace (Negative); Specific Gravity,Urine 1.012 (1.001-1.035); Urobilinogen,Urine <2.0 mg/dL (<2.0)
[2018-04-14] MEDS ORDERED: SODIUM CHLORIDE 0.9% 1,000 ML IV ONE (16:51)
[2018-04-14] MEDS ORDERED: EPINEPHRINE 0.3 MG IM PRN (20:00)
[2018-04-14] MEDS ORDERED: ALBUTEROL NEBULIZED 2.5 MG/3 ML INHALATION PRN (20:00)
[2018-04-14] MEDS ORDERED: ONDANSETRON 4 MG TAB PO PRN (20:00)
[2018-04-14] MEDS ORDERED: BISACODYL 5 MG TABLET.DR PO PRN (20:00)
[2018-04-14] MEDS ORDERED: valACYclovir HCL 1,000 MG TABLET PO PRN (20:00)
[2018-04-14] MEDS: DULoxetine HCL 60 MG CAPSULE.DR PO SCH (21:07)
[2018-04-14] MEDS: ASPIRIN 81 MG PO SCH (21:07)
[2018-04-14] MEDS: METOPROLOL TARTRATE 50 MG TAB PO SCH (21:07)
[2018-04-14] MEDS: CARBIDOPA-LEVODOPA 25-100 MG 1 EACH TAB PO SCH (21:07)
[2018-04-14] MEDS: MONTELUKAST 10 MG TAB PO SCH (21:07)
[2018-04-14] MEDS: cycloSPORINE 0.05% OPHTH 0.4 ML DROPERETTE BOTH EYES SCH (21:08)
[2018-04-15] MEDS: LEVOTHYROXINE 88 MCG TAB PO SCH (06:18)
[2018-04-15] MEDS ORDERED: NON-FORMULARY DRUG (Biotin [Biotin] 5 MG) PO SCH (09:00)
[2018-04-15] MEDS: ASCORBIC ACID 500 MG TAB PO SCH (10:07)
[2018-04-15] MEDS: CHOLECALCIFEROL 1,000 UNIT TAB PO SCH (10:07)
[2018-04-15] MEDS: DAPTOmycin 500 MG in SODIUM CHLORIDE 0.9% 50 ML IVPB SCH (10:07)
[2018-04-15] MEDS: DULoxetine HCL 60 MG CAPSULE.DR PO SCH ×2 (10:08→21:15)
[2018-04-15] MEDS: cycloSPORINE 0.05% OPHTH 0.4 ML DROPERETTE BOTH EYES SCH ×2 (10:08→21:21)
[2018-04-15] MEDS: THIAMINE 100 MG TAB PO SCH (10:09)
[2018-04-15] MEDS: METOPROLOL TARTRATE 50 MG TAB PO SCH ×2 (10:09→21:15)
[2018-04-15] MEDS: FERROUS SULFATE 325 MG TAB PO SCH (10:09)
[2018-04-15] MEDS: LOSARTAN 50 MG TAB PO SCH (10:09)
[2018-04-15] MEDS: FOLIC ACID 1 MG TAB PO SCH (10:09)
--- NOTE | 2018-04-15 13:13 | P.PN ---
Subjective 68-year-old admitted secondary to sepsis, possible source being infected pain pump neurology group in the pain pump was consulted as well as infectious disease patient was recently discharged from the hospital on daptomycin. Daptomycin is being continued. Patient was also complaining of chest pain troponins are negative I do not have any EKG available will order an EKG patient doesn't have any such pain today. Constitutional: Denied any fatigue denied any fever. Cardio vascular: denied any chest pain, palpitations Gastrointestinal denied any nausea vomiting Pulmonary: Denied any shortness of breath cough Neurologic denied any new focal deficits Objective - Vital Signs Vital signs: Vital Signs Temp 97.6 F 04/15/18 07:00 Pulse 78 04/15/18 07:00 Resp 20 04/15/18 07:00 BP 112/60 04/15/18 07:00 Pulse Ox 96 04/15/18 07:14 Intake & Output 04/14/18 04/15/18 04/15/18 18:59 06:59 18:59 Intake Total 100 Balance 100 Weight 71.214 kg Intake: Oral 100 Other: Voiding Method Toilet # Voids 1 - Exam PHYSICAL EXAMINATION: GENERAL: The patient is alert and oriented x3, not in any acute distress. Well developed, well nourished. HEENT: Pupils are round and equally reacting to light. EOMI. No scleral icterus. No conjunctival pallor. Normocephalic, atraumatic. No pharyngeal erythema. No thyromegaly. CARDIOVASCULAR: S1 and S2 present. No murmurs, rubs, or gallops. PULMONARY: Chest is clear to auscultation, no wheezing or crackles. ABDOMEN: Soft, nontender, palpable pain pump in the left lower abdominal area no tenderness to palpation MUSCULOSKELETAL: No joint swelling or deformity. EXTREMITIES: No cyanosis, clubbing, or pedal edema. NEUROLOGICAL: Gross neurological examination did not reveal any focal deficits. SKIN: No rashes. - Labs CBC & Chem 7: 04/14/18 15:07 04/14/18 15:07 Labs: Abnormal Lab Results - Last 24 Hours (Table) 04/14/18 04/14/18 04/14/18 Range/Units 15:07 15:07 16:05 RBC 3.50 L (3.80-5.40) m/uL Hgb 9.7 L (11.4-16.0) gm/dL Hct 29.9 L (34.0-46.0) % Plt Count 468 H (150-450) k/uL Sodium 130 L (137-145) mmol/L Chloride 95 L (98-107) mmol/L Glucose 108 H (74-99) mg/dL AST 37 H (14-36) U/L Urine Protein Trace H (Negative) Microbiology - Last 24 Hours (Table) 04/14/18 16:05 Urine Culture - Preliminary Urine,Voided Assessment and Plan Plan: -fever and sepsis had a recent bacteremia with MRSA patient will be resumed and daptomycin, Dr. Krishna infectious disease will be consulted pain pump can be the source of infection. Patient had a recent echocardiogram which showed normal ejection fraction.repeat blood cultures will be obtained -chest pain we will rule out acute medicine syndromes EKG and troponin yet to be obtained -fibromyalgia, chronic pain syndrome and chronic low back pain for which patient has a pain pump hypertension -Hyperlipidemia - osteoarthritis -Obstructive sleep apnea on CPAP machine at home -Hypothyroidism -History of diabetes insipidus with chronic hyponatremia -Iron deficiency anemia -History of bariatric surgery
--- NOTE | 2018-04-15 14:06 | P.CONS ---
History of Present Illness - Reason for Consult Consult date: 04/15/18 Sepsis, bacteremia, fever - History of Present Illness 68-year-old female who has a extensive past medical history including a history of TIA, fibromyalgia, obesity treated by LAP-BAND with adequate success, and severe back pain. She's undergone multiple procedures in the past for her back and several years ago had a spinal cord stimulator placed. She had modestly good control of her pain with this device but eventually broke and was no longer effective. Because of her severe and ongoing back pain she was evaluated and had a trial of a intrathecal pain pump. She had good results and consequently the pain pump was placed with relatively good control of her pain. She had fevers and there was concerns because she had fever she was infection of her pain pump. Imaging studies reveal evidence of the fluid collection near the implant and aspiration was obtained which failed to reveal evidence of underlying infection. No cultures were noted be positive from the local hospital or the outside hospital when cultures were obtained. The patient or continue to feel worse over time it was progressive fatigue and malaise and fever she presented to our emergency center for further evaluation and was admitted to the hospital from March 26 through April 06 which time she was treated for MRSA bacteremia of unclear etiology but limited bacteremia making it less likely the pain pump is infected. Echo did not show endocarditis. Patient was started on daptomycin and was discharged to the [facility] on April 06. When she arrived she ended up falling onto stairs hitting her head with no loss of consciousness and sustained laceration to the right elbow. She was brought back to [facility] emergency center for evaluation. She underwent a CAT scan of the head and cervical spine that showed mild cerebral atrophy. No acute intracranial process. Minor spondylitic changes in the cervical spine. No fracture. Humerus x-ray showed no fracture. Chest x-ray was normal. Hip x-ray showed no fracture or dislocation. Patient did sustain a laceration to the right elbow that did not require suturing. She was discharged to [facility] for subacute rehab. Patient was discharged on daptomycin and she will complete her course on April 16. She has weekly lab work done and there was a critical CK of 678 and apparently patient was transferred back to [facility] for evaluation. Patient does state that she had a fever at the group home of the records do not reveal that. Temperature here has been 101.3 on presentation, normal white count at 9.9. Sodium was 130. Patient also had some complaints of chest pain but troponins have been negative on 3 draws. Urine was negative for infection. Blood culture is in progress, urine culture in progress. Wound to the right elbow is healing nicely. No signs of infection. The right hip area where she had ecchymotic area is now quite firm, tender and warm to the touch. PICC line has been functioning and patient denies any tenderness at the area. Patient has pain pump the left abdomen and left flank with no signs of tenderness or pain. Review of Systems All systems: negative Constitutional: Reports fatigue, Reports fever, Denies chills, Denies poor appetite Eyes: denies blurred vision, denies pain Ears, nose, mouth and throat: Denies headache, Denies sore throat Cardiovascular: Denies chest pain, Denies decreased exercise tolerance, Denies dyspnea on exertion, Denies edema, Denies leg edema, Denies shortness of breath Respiratory: Denies cough, Denies cough with sputum, Denies dyspnea, Denies excessive sputum, Denies hemoptysis, Denies home oxygen, Denies wheezing Gastrointestinal: Denies abdominal pain, Denies diarrhea, Denies loss of appetite, Denies nausea, Denies vomiting Genitourinary: Denies dysuria, Denies hematuria, Denies urgency, Denies urinary frequency Musculoskeletal: Denies myalgias Integumentary: Reports wounds, Denies pruritus, Denies rash Neurological: Denies numbness, Denies weakness Psychiatric: Denies anxiety, Denies depression Endocrine: Denies fatigue, Denies weight change Past Medical History Past Medical History: Asthma, Cancer, Chest Pain / Angina, CVA/TIA, Fibromyalgia , GERD/Reflux, Hyperlipidemia, Hypertension, Osteoarthritis (OA), Renal Disease , Sleep Apnea/CPAP/BIPAP, Thyroid Disorder Additional Past Medical History / Comment(s): Pt recently admitted to [facility] on 03/26/18 with UTI/sepsis, hyponatremia/SIADH, hypomagnesemia, hypokalemia and bacterial MRSA. Other HX: Frequent falls, bilateral weakness from CVAs and loss of equalibrium-also had bilateral facial droops that resolve, pt states she has had 6 CVAs total, TIAs, L leg bone cancer and entire leg has titanium rods, R knee arthroplasty-pt fell and damaged artificial joint, chronic back pain, carpal tunnel syndrome bilateral elbows/shoulders, DJD, diabetes insipidus, LAUREN with no device since weight loss, CKD stage III, PASCUA YAQUI bilaterally, anemia. History of Any Multi-Drug Resistant Organisms: MRSA Year Discovered:: 03/26/18 MDRO Source:: BLOOD Past Surgical History: Appendectomy, Back Surgery, Bariatric Surgery, Cholecystectomy, Heart Catheterization, Hysterectomy, Joint Replacement, Orthopedic Surgery, Tubal Ligation Additional Past Surgical History / Comment(s): 04/02/18 PICC line for ABX, Lap band with removal, gastric sleeve, L leg titanium rods, R total knee arthroplasty, bilateral wrist carpal tunnel releases, R great toe surgery to remove a growth, lithotripsy, pain stimulator-nonfunctioning, pain clinic procedures, bilateral cataract removals. Past Anesthesia/Blood Transfusion Reactions: Previous Problems w/ Anesthesia Additional Past Anesthesia/Blood Transfusion Reaction / Comm: Slow to wake. Past Psychological History: Anxiety, Depression, Panic Disorder Smoking Status: Never smoker Additional Past Alcohol Use History / Comment(s): Patient is . Prior to previous admission, patient was living independently but her daughter was helping her. There are no animals in the home. Patient is retired. No experience. No international travel. Lifelong nonsmoker. No history of alcohol or recreational drug use. - Past Family History Father Additional Family Medical History / Comment(s): pt was 7 years old when her father was murdered/ from w Mother Family Medical History: CVA/TIA Daughter(s) Family Medical History: Deep Vein Thrombosis (DVT) Additional Family Medical History / Comment(s): dvt Medications and Allergies Home Medications Medication Instructions Recorded Confirmed Type Clopidogrel [Plavix] 75 mg PO DAILY 01/04/14 04/14/18 History DULoxetine HCL [Cymbalta] 60 mg PO BID 01/04/14 04/14/18 History Fluticasone/Salmeterol [Advair 1 puff INHALATION RT-BID 01/04/14 04/14/18 History 500-50 Diskus] Levothyroxine Sodium [Synthroid] 88 mcg PO QAM 01/04/14 04/14/18 History Metoprolol Tartrate [Lopressor] 50 mg PO BID 01/04/14 04/14/18 History Montelukast [Singulair] 10 mg PO HS 01/04/14 04/14/18 History Aspirin 81 mg PO HS 02/07/14 04/14/18 History valACYclovir HCL [Valtrex] 1,000 mg PO DAILY PRN 02/07/14 04/14/18 History Ondansetron HCl [Zofran] 8 mg PO Q12HR PRN 02/21/15 04/14/18 History Vitamin B Complex 1 cap PO DAILY 02/21/15 04/14/18 History cycloSPORINE [Restasis] 1 drops BOTH EYES BID 02/21/15 04/14/18 History Biotin 5 mg PO DAILY 04/26/15 04/14/18 History Ferrous Sulfate [Feosol] 325 mg PO DAILY 04/26/15 04/14/18 History Ascorbic Acid [Vitamin C] 1,000 mg PO DAILY 05/13/16 04/14/18 History Bisacodyl 5 mg PO DAILY PRN 03/26/18 04/14/18 History Carbidopa-Levodopa 25-100 mg 1 tab PO HS 03/26/18 04/14/18 History [Sinemet 25-100 mg] Cholecalciferol [Vitamin D3] 5,000 unit PO DAILY 03/26/18 04/14/18 History EPINEPHrine [Auvi-Q] 0.3 mg IM ONCE PRN 03/26/18 04/14/18 History Levalbuterol Hfa Inhaler [Xopenex 2 puff INHALATION RT-Q6H PRN 03/26/18 History Hfa Inhaler] Losartan Potassium 100 mg PO DAILY 03/26/18 04/14/18 History amLODIPine [Norvasc] 10 mg PO BID 03/26/18 04/14/18 History Folic Acid 1 mg PO DAILY@1200 #30 tab 04/02/18 04/14/18 Rx Thiamine [Vitamin B-1] 100 mg PO DAILY@1200 #30 tab 04/02/18 04/14/18 Rx Multivitamins, Thera [Multivitamin 1 tab PO DAILY@1200 04/06/18 04/14/18 History (formulary)] DAPTOmycin [Cubicin] 500 mg IV DAILY #8 bag 04/08/18 04/14/18 Rx Allergies Allergy/AdvReac Type Severity Reaction Status Date / Time aripiprazole [From [facility]] Allergy Anaphylaxis Verified 04/14/18 15:42 baclofen Allergy Anaphylaxis Verified 04/14/18 15:42 butalbital [From Fioricet] Allergy Rash/Hives Verified 04/14/18 15:42 cefadroxil hydrate Allergy Rash/Hives Verified 04/14/18 15:42 [From Duricef] cefazolin sodium Allergy Anaphylaxis Verified 04/14/18 15:42 [From Kefzol] cephalexin monohydrate Allergy Anaphylaxis Verified 04/14/18 15:42 [From Keflex] ciprofloxacin [From Cipro] Allergy Swelling Verified 04/14/18 15:42 OF THROAT ,RASH AND HIVES ciprofloxacin HCl Allergy Rash/Hives, Verified 04/14/18 15:42 [From Cipro] SWELLING OF THROAT clindamycin HCl Allergy Unknown Verified 04/14/18 15:42 [From Cleocin] clindamycin palmitate HCl Allergy Unknown Verified 04/14/18 15:42 [From Cleocin] clindamycin phosphate Allergy Unknown Verified 04/14/18 15:42 [From Cleocin] dexamethasone [From Decadron] Allergy Anaphylaxis Verified 04/14/18 15:42 dexamethasone sod phosphate Allergy Anaphylaxis Verified 04/14/18 15:42 [From Decadron] ,RASH divalproex sodium Allergy Rash/Hives Verified 04/14/18 15:42 [From Depakote] hydroxyzine HCl [From Atarax] Allergy Unknown Verified 04/14/18 15:42 ibuprofen [From Motrin] Allergy RASH Verified 04/14/18 15:42 ,ITCHING SWELLING OF THROAT influenza virus vaccine, Allergy Anaphylaxis Verified 04/14/18 15:42 specific [Influenza Virus Vacc,Specific] Iodinated Contrast- Oral and Allergy Anaphylaxis Verified 04/14/18 15:42 IV Dye ketorolac tromethamine Allergy Chest Pain Verified 04/14/18 15:42 [From Toradol] lidocaine HCl Allergy Anaphylaxis Verified 04/14/18 15:42 [From Xylocaine] lisinopril Allergy Swelling Verified 04/14/18 15:42 meperidine HCl [From Demerol] Allergy Rash/Hives Verified 04/14/18 15:42 Milk Containing Products Allergy ABDOMINAL Verified 04/14/18 15:42 PAIN NAUSEA AND VOMITING morphine Allergy Vomiting Verified 04/14/18 15:42 Mushroom Allergy Anaphylaxis Verified 04/14/18 15:42 nortriptyline HCl Allergy Unknown Verified 04/14/18 15:42 [From Pamelor] omalizumab [From Xolair] Allergy Anaphylaxis Verified 04/14/18 15:42 Penicillins Allergy Rash/Hives Verified 04/14/18 15:42 pregabalin [From Lyrica] Allergy Rash/Hives Verified 04/14/18 15:42 procaine HCl [From Novocain] Allergy Unknown Verified 04/14/18 15:42 shellfish derived Allergy Anaphylaxis Verified 04/14/18 15:42 sulfamethoxazole Allergy Unknown Verified 04/14/18 15:42 [From Septra] tetracycline [Tetracycline] Allergy Rash/Hives Verified 04/14/18 15:42 theophylline anhydrous Allergy Unknown Verified 04/14/18 15:42 [From Joel-Dur] triamcinolone Allergy Anaphylaxis Verified 04/14/18 15:42 trimethoprim [From ] Allergy RASH, Verified 04/14/18 15:42 ITCHING vancomycin Allergy ITCHING Verified 04/14/18 15:42 ,HIVES wheat Allergy Rash/Hives Verified 04/14/18 15:42 yellow dye Allergy Anaphylaxis Verified 04/14/18 15:42 erythromycin base AdvReac Rash/Hives Verified 04/14/18 15:42 fentanyl [From Duragesic] AdvReac Unknown Verified 04/14/18 15:42 NSAIDS (Non-Steroidal AdvReac Unknown Verified 04/14/18 15:42 Anti-Inflamma verapamil AdvReac Rash/Hives Verified 04/14/18 15:42 PAPER TAPE Allergy Rash/BLISTE Uncoded 04/14/18 14:39 RS PERSERATIVE IN ALBUTEROL Allergy Dyspnea Uncoded 04/14/18 14:39 INHALER PU steroids Allergy Rash/Hives Uncoded 04/14/18 14:39 WHITE SUTURE Allergy Swelling Uncoded 04/14/18 14:39 Physical Exam Vitals: Vital Signs Temp Pulse Pulse Resp BP BP Pulse Ox 04/15/18 07:14 96 04/15/18 07:00 97.6 F 78 20 112/60 96 04/15/18 00:30 98.6 F 82 20 123/59 95 04/14/18 18:39 97.8 F 79 16 111/59 97 04/14/18 17:11 99 F 85 16 106/59 97 04/14/18 15:57 98.9 F 88 16 147/74 98 04/14/18 14:34 101.3 F H 88 16 126/68 98 Intake and Output 04/14/18 04/15/18 04/15/18 22:59 06:59 14:59 Intake Total 100 Balance 100 Intake: Oral 100 Other: Voiding Method Toilet # Voids 1 GEN: 68-year-old woman in bed and appears to be comfortable. HEENT: Anicteric conjunctiva are pink and moist nasal mucosa grossly intact without significant lesions, there is no thrush. Neck: The neck is supple without significant lymphadenopathy or thyromegaly. Lungs: Good bilateral air entry without significant crackles or wheezing. There is no significant bronchial sounds. Heart: Regular rate and rhythm with an audible S1-S2, no S3 no S4. There is no significant murmur click or rub, PMI was nondisplaced. Abdomen: Positive bowel sounds soft and nontender without palpable masses or organomegaly. There was no guarding or rebound. There is no tenderness at the site of her pain pump in the left abdomen ordered around to the left flank. No redness. Extremities: The upper extremities have excellent pulses they are symmetric. Right elbow wound is healing without signs of infection. No erythema or drainage. There is large ecchymotic area to the right lateral hip with firm center, tender, warm to the touch. Neuro: Awake alert oriented to person place and time. There are no acute gross focal sensory motor deficits. Results Results: Laboratory Results WBC 9.4 k/uL (3.8-10.6) 04/14/18 15:07 RBC 3.50 m/uL (3.80-5.40) L 04/14/18 15:07 Hgb 9.7 gm/dL (11.4-16.0) L 04/14/18 15:07 Hct 29.9 % (34.0-46.0) L 04/14/18 15:07 MCV 85.4 fL (80.0-100.0) 04/14/18 15:07 MCH 27.8 pg (25.0-35.0) 04/14/18 15:07 MCHC 32.5 g/dL (31.0-37.0) 04/14/18 15:07 RDW 13.6 % (11.5-15.5) 04/14/18 15:07 Plt Count 468 k/uL (150-450) H 04/14/18 15:07 Neutrophils % 77 % 04/14/18 15:07 Lymphocytes % 14 % 04/14/18 15:07 Monocytes % 3 % 04/14/18 15:07 Eosinophils % 5 % 04/14/18 15:07 Basophils % 0 % 04/14/18 15:07 Neutrophils # 7.2 k/uL (1.3-7.7) 04/14/18 15:07 Lymphocytes # 1.4 k/uL (1.0-4.8) 04/14/18 15:07 Monocytes # 0.3 k/uL (0-1.0) 04/14/18 15:07 Eosinophils # 0.5 k/uL (0-0.7) 04/14/18 15:07 Basophils # 0.0 k/uL (0-0.2) 04/14/18 15:07 PT 10.3 sec (9.0-12.0) 04/14/18 15:07 INR 1.1 (<1.2) 04/14/18 15:07 APTT 25.3 sec (22.0-30.0) 04/14/18 15:07 Sodium 130 mmol/L (137-145) L 04/14/18 15:07 Potassium 4.6 mmol/L (3.5-5.1) 04/14/18 15:07 Chloride 95 mmol/L (98-107) L 04/14/18 15:07 Carbon Dioxide 23 mmol/L (22-30) 04/14/18 15:07 Anion Gap 12 mmol/L 04/14/18 15:07 BUN 9 mg/dL (7-17) 04/14/18 15:07 Creatinine 0.60 mg/dL (0.52-1.04) 04/14/18 15:07 Est GFR (CKD-EPI)AfAm >90 (>60 ml/min/1.73 sqM) 04/14/18 15:07 Est GFR (CKD-EPI)NonAf >90 (>60 ml/min/1.73 sqM) 04/14/18 15:07 Glucose 108 mg/dL (74-99) H 04/14/18 15:07 Plasma Lactic Acid Anjel 0.9 mmol/L (0.7-2.0) 04/14/18 15:07 Calcium 9.4 mg/dL (8.4-10.2) 04/14/18 15:07 Total Bilirubin 0.6 mg/dL (0.2-1.3) 04/14/18 15:07 AST 37 U/L (14-36) H 04/14/18 15:07 ALT 50 U/L (9-52) 04/14/18 15:07 Alkaline Phosphatase 73 U/L (38-126) 04/14/18 15:07 Troponin I <0.012 ng/mL (0.000-0.034) 04/15/18 03:42 Total Protein 6.4 g/dL (6.3-8.2) 04/14/18 15:07 Albumin 3.5 g/dL (3.5-5.0) 04/14/18 15:07 Urine Color Yellow 04/14/18 16:05 Urine Appearance Clear (Clear) 04/14/18 16:05 Urine pH 7.5 (5.0-8.0) 04/14/18 16:05 Ur Specific [place] 1.012 (1.001-1.035) 04/14/18 16:05 Urine Protein Trace (Negative) H 04/14/18 16:05 Urine Glucose (UA) Negative (Negative) 04/14/18 16:05 Urine Ketones Negative (Negative) 04/14/18 16:05 Urine Blood Negative (Negative) 04/14/18 16:05 Urine Nitrite Negative (Negative) 04/14/18 16:05 Urine Bilirubin Negative (Negative) 04/14/18 16:05 Urine Urobilinogen <2.0 mg/dL (<2.0) 04/14/18 16:05 Ur Leukocyte Esterase Negative (Negative) 04/14/18 16:05 CBC & Chem 7: 04/14/18 15:07 04/14/18 15:07 Labs: Abnormal Lab Results - Last 24 Hours (Table) 04/14/18 04/14/18 04/14/18 Range/Units 15:07 15:07 16:05 RBC 3.50 L (3.80-5.40) m/uL Hgb 9.7 L (11.4-16.0) gm/dL Hct 29.9 L (34.0-46.0) % Plt Count 468 H (150-450) k/uL Sodium 130 L (137-145) mmol/L Chloride 95 L (98-107) mmol/L Glucose 108 H (74-99) mg/dL AST 37 H (14-36) U/L Urine Protein Trace H (Negative) Microbiology - Last 24 Hours (Table) 04/14/18 16:05 Urine Culture - Preliminary Urine,Voided Assessment and Plan Plan: This is a 68-year-old female who presented to the hospital with fever apparently sent in due to elevated CK of 678 which is monitored as an outpatient regarding the daptomycin dosing. She is on daptomycin for MRSA bacteremia. Patient does present with a fever that has resolved, no leukocytosis. Ecchymotic area on the right hip will be evaluated by ultrasound. At this time, no clear infection of the pain pump. Repeat blood cultures are in progress. Continue supportive care. Further medications as patient progresses. The above dictated assessment and findings were discussed with Dr. Krishna. The impression and plan of care have been directed as dictated. Priya Pantoja nurse practitioner acting as scribe for Dr. Krishna.
--- NOTE | 2018-04-15 14:30 | US ---
EXAMINATION TYPE: US extremity nonvasc mass RT DATE OF EXAM: 04/15/2018 COMPARISON: NONE CLINICAL HISTORY: hematoma right lateral hip, . Patient fell on right hip 2 weeks prior. Left hip scanned at area of bruising, several small hypoechoic area seen over large area of bruising, largest measuring 1.2 x 0.8 x 0.9cm IMPRESSION: 1. Multiple small hypoechoic areas could represent small hematoma. Lymph nodes in the differential di agnosis.
[2018-04-15] MEDS: ASPIRIN 81 MG PO SCH (21:15)
[2018-04-15] MEDS: CARBIDOPA-LEVODOPA 25-100 MG 1 EACH TAB PO SCH (21:15)
[2018-04-15] MEDS: MONTELUKAST 10 MG TAB PO SCH (21:16)
--- NOTE | 2018-04-15 22:41 | P.CON ---
Consult Note - . Consult date: 04/15/18 Assessment/Plan:: 68-year-old female who has a extensive past medical history including a history of TIA, fibromyalgia, obesity treated by LAP-BAND with adequate success, and severe back pain. She's undergone multiple procedures in the past for her back and several years ago had a spinal cord stimulator placed. She had modestly good control of her pain with this device but eventually broke and was no longer effective. Because of her severe and ongoing back pain she was evaluated and had a trial of a intrathecal pain pump. She had good results and consequently the pain pump was placed with relatively good control of her pain. She had fevers and there was concerns because she had fever she was infection of her pain pump. Imaging studies reveal evidence of the fluid collection near the implant and aspiration was obtained which failed to reveal evidence of underlying infection. No cultures were noted be positive from the local hospital or the outside hospital when cultures were obtained. The patient or continue to feel worse over time it was progressive fatigue and malaise and fever she presented to our emergency center for further evaluation and was admitted to the hospital from March 26 through April 06 which time she was treated for MRSA bacteremia of unclear etiology but limited bacteremia making it less likely the pain pump is infected. Echo did not show endocarditis. Patient was started on daptomycin and was discharged to the [facility] on April 06. When she arrived she ended up falling onto stairs hitting her head with no loss of consciousness and sustained laceration to the right elbow. She was brought back to [facility] emergency center for evaluation. She underwent a CAT scan of the head and cervical spine that showed mild cerebral atrophy. No acute intracranial process. Minor spondylitic changes in the cervical spine. No fracture. Humerus x-ray showed no fracture. Chest x-ray was normal. Hip x-ray showed no fracture or dislocation. Patient did sustain a laceration to the right elbow that did not require suturing. She was discharged to [facility] for subacute rehab. Patient was discharged on daptomycin and she will complete her course on April 16. She has weekly lab work done and there was a critical CK of 678 and apparently patient was transferred back to [facility] for evaluation. Patient does state that she had a fever at the retirement of the records do not reveal that. Temperature here has been 101.3 on presentation, normal white count at 9.9. Sodium was 130. Patient also had some complaints of chest pain but troponins have been negative on 3 draws. Urine was negative for infection. Blood culture is in progress, urine culture in progress. Wound to the right elbow is healing nicely. No signs of infection. The right hip area where she had ecchymotic area is now quite firm, tender and warm to the touch. PICC line has been functioning and patient denies any tenderness at the area. Patient has pain pump the left abdomen and left flank with no signs of tenderness or pain. Please see the consult note is dictated by nurse practitioner Mrs. Priya Pantoja. Pleasant woman is feeling considerably better than admission when she had 101.3 fever. Today reveals evidence of the blood culture from March 26 which was positive for MRSA but follow-up blood cultures from March 29 April 07 in April 14 are all negative at this time. There is been concerned that the implantable device is infected. at this time there is no persistent positive bacteremia, and the implants themselves are nontender without erythema fluctuance or crepitance or evidence of increased warmth or tenderness. The patient's chronic back pain also was started to show marked improvement as she is having good effect from the implantable pump. The fever at admission has several potential sources most likely at this time would be from the absorption of the large hematomas from her significant recent fall. As of now, no other source of infection has been found, no evidence of pneumonia or urinary tract infection. I agree with evaluation, assessment and plan as dictated by nurse practitioner Mrs. Priya Pantoja.
[2018-04-16] MEDS: LEVOTHYROXINE 88 MCG TAB PO SCH (06:01)
[2018-04-16] MEDS: ASCORBIC ACID 500 MG TAB PO SCH (08:00)
[2018-04-16] MEDS: CHOLECALCIFEROL 1,000 UNIT TAB PO SCH (08:00)
[2018-04-16] MEDS: cycloSPORINE 0.05% OPHTH 0.4 ML DROPERETTE BOTH EYES SCH ×2 (08:01→22:14)
[2018-04-16] MEDS: FERROUS SULFATE 325 MG TAB PO SCH (08:01)
[2018-04-16] MEDS: METOPROLOL TARTRATE 50 MG TAB PO SCH ×2 (08:01→22:15)
[2018-04-16] MEDS: LOSARTAN 50 MG TAB PO SCH (08:01)
[2018-04-16] MEDS: DULoxetine HCL 60 MG CAPSULE.DR PO SCH ×2 (08:01→22:14)
[2018-04-16] MEDS: DAPTOmycin 500 MG in SODIUM CHLORIDE 0.9% 50 ML IVPB SCH (08:02)
--- NOTE | 2018-04-16 08:24 | CONS ---
CONSULTATION DATE OF CONSULTATION: 04/15/2018 CHIEF COMPLAINT: Possible infected hardware. HISTORY OF PRESENT ILLNESS: The patient is a pleasant 68-year-old female, who is being evaluated today on 04/15/2018 by the Neurology Service per the request of Dr. Henderson for possible hardware infection. The patient has history of an intrathecal pain pump implant which was surgically placed a few months ago. She developed bacteremia several weeks after the implant and had a severe urinary tract infection with nephritis as well. There were concerns for possible hardware infection on that admission but the patient's incision sites remained normal. Infectious Disease was following and recommended a four-week course of IV antibiotics which the patient has not completed yet. She believes she still has less than 1 week of IV antibiotic therapy. The patient was brought in again to [facility] Emergency Room with the complaints of some fevers and chills. She did have a single temperature spike in the emergency room at 101.3. She has been afebrile ever since. Her CBC showed no leukocytosis, but she did have anemia with a hemoglobin of 9.7 and hematocrit of 29%. Her comprehensive metabolic profile showed mild hyponatremia at 130 and was otherwise normal. Her troponin levels were normal. Her urinalysis was normal. At the time of my evaluation, the patient is resting in her bed and appears to be in no acute distress. She continues to report significant pain relief with her intrathecal pump. PAST MEDICAL HISTORY: Chronic pain syndrome, recent bacteremia and urosepsis, asthma, angina, transient ischemic attack, fibromyalgia, gastroesophageal reflux disease, dyslipidemia, hypertension, arthritis, sleep apnea, hypothyroidism, SIADH, history of MRSA, diabetes insipidus, degenerative joint disease, history of bone cancer, anxiety disorder, depression, panic disorder, history of appendectomy, bariatric surgery, cholecystectomy, hysterectomy, joint replacement surgery, tubal ligation, PICC line placement, cataract surgery, needs, spinal cord stimulator implant, intrathecal pump implant. SOCIAL HISTORY: She denies any tobacco, alcohol or drug use. FAMILY HISTORY: Positive for strokes and deep venous thrombosis. HOME MEDICATIONS: Reviewed in the chart. ALLERGIES: Multiple allergies reviewed in the chart. REVIEW OF SYSTEMS: As mentioned above and otherwise negative. PHYSICAL EXAM: Vital signs show a temperature of 97.6, pulse 78, respiration 20, blood pressure 112/60. GENERAL APPEARANCE: The patient is a well-developed female, who appears to be in no acute distress. HEENT: Normocephalic, atraumatic, no facial asymmetry is seen. NECK: Supple with no masses felt. CARDIOVASCULAR: Regular rate and rhythm. ABDOMEN: Nontender, nondistended. Incision sites appear to be clean and well healed. Extremities showed no edema or clubbing. NEUROLOGICAL EXAM: The patient is awake and oriented x3. Speech and language are normal. Strength is full in all 4 extremities. Sensory exam was normal to light touch in all 4 extremities. No tremors or seizure-like activity is seen. No facial asymmetry is noticed on cranial nerve testing. IMPRESSION: 1. Chronic pain syndrome. 2. Fever. 3. Hyponatremia. RECOMMENDATION: The patient did have an episode of a temperature spike as mentioned above, but she has been afebrile since that time and at the time of my evaluation, she had been afebrile for approximately 24 hours. Her CBC shows no evidence of any leukocytosis. There is no evidence of any hardware infection at this time. Infectious Disease has been consulted. From a neurology/pain management standpoint, I do agree with Infectious Disease's recommendation, which is to treat the patient for a complete course of 4 weeks of IV antibiotics. After that, if the patient again develops bacteremia, she will need hardware to be explanted. I discussed this with her again. No further inpatient neurological workup is needed at this time. I will continue to follow with you as needed. From a neurology standpoint, the patient is cleared for discharge. Thank you for allowing me to participate in the care of your patient. If you have any questions, please feel free to contact me. MMODL / IJN: [id number] /
[2018-04-16 08:51] LABS: Anion Gap 11 mmol/L; Blood Urea Nitrogen 7 mg/dL (7-17); Calcium 9.2 mg/dL (8.4-10.2); Carbon Dioxide 23 mmol/L (22-30); Chloride 103 mmol/L (98-107); Glucose 98 mg/dL (74-99); Potassium 4.4 mmol/L (3.5-5.1); Sodium 137 mmol/L (137-145)
[2018-04-16] MEDS: THIAMINE 100 MG TAB PO SCH (11:10)
[2018-04-16] MEDS: FOLIC ACID 1 MG TAB PO SCH (11:10)
--- NOTE | 2018-04-16 16:51 | PN ---
PROGRESS NOTE DATE OF SERVICE: 04/16/2018 This 68-year-old woman was admitted with fever and possible sepsis. Had a gram-negative bacilli grown from the urine also. The patient is on IV daptomycin at this time. PICC line has been inserted. Patient also had a pain pump which is currently being maintained in the hope of clearing the bacteremia soon. Infectious Disease and Neurology following the patient closely. No chest pain. No palpitations. No fever currently. PHYSICAL EXAM: Alert and oriented x3. Pulse 76, blood pressure 107/56, respiration 20, temperature 98 degrees, pulse ox 97% on room air. HEENT: Conjunctivae normal. Oral mucosa moist. Neck is no jugular venous distention. No carotid bruit. No lymph node enlargement. CARDIOVASCULAR: S1, S2. RESPIRATORY: Breath sounds diminished in the bases. No rhonchi, no crackles. ABDOMEN: Soft, nontender. No mass palpable. Pain pump in abdominal wall. NERVOUS SYSTEM: Higher functions as mentioned earlier. Moves all four limbs. No focal motor deficits. LYMPHATICS: No lymphadenopathy in the neck, axillae, groin. SKIN: No ulcer, rash, bleeding. LABS: WBC 9, hemoglobin is 9.7. BMP within normal limits. ASSESSMENT: 1. Fever, sepsis with a recent bacteremia with MRSA. 2. Pain pump. 3. On IV daptomycin. 4. Hypertension. 5. Hyperlipidemia. 6. Degenerative joint disease. 7. Sleep apnea. 8. Hypothyroidism. 9. Diabetes insipidus. 10.Iron deficient anemia. 11.History of bariatric surgery. RECOMMENDATIONS AND DISCUSSION: I recommend to continue current management and symptomatic treatment. Repeat cultures. Closely monitor with Infectious Disease. Further recommendations to follow. MMODL / IJN: [id number] /
[2018-04-16] MEDS: ACETAMINOPHEN TAB 325 MG TAB PO PRN (16:55)
[2018-04-16] MEDS: ASPIRIN 81 MG PO SCH (22:14)
[2018-04-16] MEDS: CARBIDOPA-LEVODOPA 25-100 MG 1 EACH TAB PO SCH (22:14)
[2018-04-16] MEDS: MONTELUKAST 10 MG TAB PO SCH (22:15)
[2018-04-17] MEDS: LEVOTHYROXINE 88 MCG TAB PO SCH (05:55)
[2018-04-17] MEDS: METOPROLOL TARTRATE 50 MG TAB PO SCH ×2 (07:35→21:20)
[2018-04-17] MEDS: ASCORBIC ACID 500 MG TAB PO SCH (07:35)
[2018-04-17] MEDS: CHOLECALCIFEROL 1,000 UNIT TAB PO SCH (07:35)
[2018-04-17] MEDS: DAPTOmycin 500 MG in SODIUM CHLORIDE 0.9% 50 ML IVPB SCH (07:35)
[2018-04-17] MEDS: DULoxetine HCL 60 MG CAPSULE.DR PO SCH ×2 (07:35→21:20)
[2018-04-17] MEDS: FERROUS SULFATE 325 MG TAB PO SCH (07:35)
[2018-04-17] MEDS: LOSARTAN 50 MG TAB PO SCH (07:36)
[2018-04-17] MEDS: cycloSPORINE 0.05% OPHTH 0.4 ML DROPERETTE BOTH EYES SCH ×2 (07:36→21:21)
[2018-04-17 08:14] LABS: Anion Gap 8 mmol/L; Blood Urea Nitrogen 7 mg/dL (7-17); Calcium 9.1 mg/dL (8.4-10.2); Carbon Dioxide 25 mmol/L (22-30); Chloride 102 mmol/L (98-107); Glucose 87 mg/dL (74-99); Potassium 4.3 mmol/L (3.5-5.1); Sodium 135 mmol/L (137-145)
[2018-04-17] MEDS: THIAMINE 100 MG TAB PO SCH (11:21)
[2018-04-17] MEDS: FOLIC ACID 1 MG TAB PO SCH (11:21)
--- NOTE | 2018-04-17 20:10 | PN ---
PROGRESS NOTE DATE OF SERVICE: 04/17/2018. INTERVAL HISTORY: This 68-year-old woman is admitted with possible sepsis also had a fever. The patient also had hardware from pain pump implanted recently. No chest pain. No palpitations. No fever. The most recent urine culture showed E coli. Blood culture negative. No chest pain. No palpitations. No fever. PHYSICAL EXAM: Alert and oriented x3. Pulse 83, blood pressure 130/78, respiration 16, temperature 98.6, pulse ox 97% on room air. HEENT: Conjunctivae normal. Oral mucosa moist. Neck is no jugular venous distention. No carotid bruit. No lymph node enlargement. CARDIOVASCULAR: S1, S2. RESPIRATORY: Breath sounds diminished in the bases. No rhonchi. No crackles. ABDOMEN: Soft, nontender. No mass palpable. LEGS: No edema. NERVOUS SYSTEM: Diffusely weak. LABS: WBC 9, hemoglobin 9.7, sodium 135. ASSESSMENT: 1. Fever, sepsis with recent bacteremia with MRSA. 2. E coli in the urine. 3. Recent pain pump insertion. 4. On IV daptomycin. 5. Hypertension. 6. Hyperlipidemia. 7. Degenerative joint disease. 8. Sleep apnea. 9. Hypothyroidism. 10.Diabetes insipidus with chronic hyponatremia. 11.Iron deficient anemia. 12.History of bariatric surgery. 13.History of cardiomyopathy. 14.History of congestive heart failure. RECOMMENDATIONS AND DISCUSSION: I recommend to continue current medication, continue to monitor. Symptomatic treatment. Otherwise at this time I recommend continue the current medications. Continue the antibiotics. Watch for any fever. Follow the cultures. Further recommendations to follow. MMODL / IJN: [id number] /
[2018-04-17] MEDS: MONTELUKAST 10 MG TAB PO SCH (21:20)
[2018-04-17] MEDS: ASPIRIN 81 MG PO SCH (21:20)
[2018-04-17] MEDS: CARBIDOPA-LEVODOPA 25-100 MG 1 EACH TAB PO SCH (21:20)
[2018-04-17] MEDS: ACETAMINOPHEN TAB 325 MG TAB PO PRN (21:21)
[2018-04-18] MEDS: LEVOTHYROXINE 88 MCG TAB PO SCH (05:57)
[2018-04-18] MEDS: DAPTOmycin 500 MG in SODIUM CHLORIDE 0.9% 50 ML IVPB SCH (08:11)
[2018-04-18] MEDS: DULoxetine HCL 60 MG CAPSULE.DR PO SCH ×2 (08:12→19:59)
[2018-04-18] MEDS: CHOLECALCIFEROL 1,000 UNIT TAB PO SCH (08:12)
[2018-04-18] MEDS: ASCORBIC ACID 500 MG TAB PO SCH (08:13)
[2018-04-18] MEDS: FERROUS SULFATE 325 MG TAB PO SCH (08:13)
[2018-04-18] MEDS: cycloSPORINE 0.05% OPHTH 0.4 ML DROPERETTE BOTH EYES SCH ×2 (08:13→19:59)
[2018-04-18] MEDS: THIAMINE 100 MG TAB PO SCH (08:14)
[2018-04-18] MEDS: METOPROLOL TARTRATE 50 MG TAB PO SCH ×2 (08:14→19:58)
[2018-04-18] MEDS: LOSARTAN 50 MG TAB PO SCH (08:14)
[2018-04-18] MEDS: FOLIC ACID 1 MG TAB PO SCH (08:14)
[2018-04-18 08:23] LABS: Anion Gap 7 mmol/L; Blood Urea Nitrogen 6 mg/dL (7-17); Carbon Dioxide 26 mmol/L (22-30); Chloride 100 mmol/L (98-107); Glucose 88 mg/dL (74-99); Sodium 133 mmol/L (137-145)
--- NOTE | 2018-04-18 19:11 | PN ---
PROGRESS NOTE DATE OF SERVICE: 04/18/2018. This 68-year-old woman who was admitted with fever, sepsis and recent bacteremia is being closely monitored. The patient also had E coli in the urine. At this time patient is on IV antibiotics. Patient has suspicious infected pain pump. IV antibiotics for 4 to 6 weeks has been recommended and continued follow up. Dr. Dyson and Infectious Disease following the patient closely. No chest pain. No palpitations. No fever. PHYSICAL EXAM: Alert and oriented x3. Pulse 82, blood pressure 124/70, respirations 16, temperature 99.4, pulse ox 93% on room air. HEENT: Conjunctivae normal. Oral mucosa moist. Neck is no jugular venous distention. No carotid bruit. No lymph node enlargement. CARDIOVASCULAR: S1, S2. RESPIRATORY: Breath sounds diminished in the bases. No rhonchi. No crackles. ABDOMEN: Soft, Pain pump in-situ. Nontender. NERVOUS SYSTEM: No focal deficits. LABS: At this time shows sodium is 133, WBC 9.4. ASSESSMENT: 1. Fever, sepsis with recent bacteremia with MRSA. 2. E coli in the urine. 3. Recent pain pump insertion. 4. On IV daptomycin. 5. Hypertension. 6. Hyperlipidemia. 7. Degenerative joint disease. 8. Sleep apnea. 9. Hypothyroidism. 10.History of diabetes insipidus with chronic hyponatremia. 11.Iron deficiency anemia. 12.History of bariatric surgery. 13.History of cardiomyopathy. 14.History of congestive heart failure. RECOMMENDATIONS AND DISCUSSION: I recommend to continue current medications, continue to monitor and symptomatic treatment. Otherwise at this time I would recommend continue the antibiotics. Otherwise we will continue to monitor. Arrange IV antibiotics. Increase ambulation. The patient was recently in [employer]. Further recommendations to follow. MMODL / IJN: [id number] /
[2018-04-18] MEDS: ASPIRIN 81 MG PO SCH (19:58)
[2018-04-18] MEDS: MONTELUKAST 10 MG TAB PO SCH (19:58)
[2018-04-18] MEDS: CARBIDOPA-LEVODOPA 25-100 MG 1 EACH TAB PO SCH (19:59)
[2018-04-19] MEDS: LEVOTHYROXINE 88 MCG TAB PO SCH (06:05)
[2018-04-19 07:19] VITALS: RESP 18; TEMP 98.5
[2018-04-19] MEDS: DAPTOmycin 500 MG in SODIUM CHLORIDE 0.9% 50 ML IVPB SCH (08:34)
[2018-04-19] MEDS: ASCORBIC ACID 500 MG TAB PO SCH (08:34)
[2018-04-19] MEDS: DULoxetine HCL 60 MG CAPSULE.DR PO SCH (08:35)
[2018-04-19] MEDS: cycloSPORINE 0.05% OPHTH 0.4 ML DROPERETTE BOTH EYES SCH (08:35)
[2018-04-19] MEDS: LOSARTAN 50 MG TAB PO SCH (08:35)
[2018-04-19] MEDS: CHOLECALCIFEROL 1,000 UNIT TAB PO SCH (08:35)
[2018-04-19] MEDS: METOPROLOL TARTRATE 50 MG TAB PO SCH (08:35)
[2018-04-19] MEDS: FERROUS SULFATE 325 MG TAB PO SCH (08:36)
[2018-04-19 09:42] LABS: Anion Gap 8 mmol/L; Blood Urea Nitrogen 6 mg/dL (7-17); Calcium 9.1 mg/dL (8.4-10.2); Carbon Dioxide 26 mmol/L (22-30); Chloride 101 mmol/L (98-107); Glucose 90 mg/dL (74-99); Potassium 3.9 mmol/L (3.5-5.1); Sodium 135 mmol/L (137-145)
[2018-04-19] MEDS: THIAMINE 100 MG TAB PO SCH (11:35)
[2018-04-19] MEDS: FOLIC ACID 1 MG TAB PO SCH (11:35)
[2018-04-19 15:24] VITALS: BP 139/64; PULSE 92
--- NOTE | 2018-04-19 20:07 | DS ---
DISCHARGE SUMMARY FINAL DIAGNOSES: 1. Fever, sepsis with possible urinary tract infection with E coli. 2. History of recent bacteremia with MRSA. 3. Recent pain pump insertion. 4. On IV daptomycin. 5. Hypertension. 6. Hyperlipidemia. 7. Degenerative joint disease. 8. Sleep apnea. 9. Hypothyroidism. 10.History of diabetes insipidus with chronic hyponatremia. 11.Iron deficiency anemia. 12.History of bariatric surgery. 13.History of cardiomyopathy. 14.History of congestive heart failure. DISCHARGE DISPOSITION: The patient is being discharged in stable condition with guarded prognosis. HISTORY OF PRESENT ILLNESS: This 68-year-old woman with a past medical history was admitted with fever, sepsis, and possibly UTI. At this time, patient recently had MRSA bacteremia. Patient on IV daptomycin. Patient closely monitored. Cultures are negative. Infectious Disease, Dr. Krishna recommended no antibiotic at this time on discharge. On exam, vitals are stable. Cardiovascular: S1, S2. Abdomen: Soft. Nervous System: No focal deficits. DISCHARGE ADVICE AND MEDICATIONS: 1. Diet is cardiac. 2. Activity limited until followup. 3. Follow up with Dr. Cabello in 2-3 days. 4. Follow with Dr. Dyson and Infectious Disease as recommended. MEDICATIONS: 1. Norvasc 10 mg p.o. b.i.d. 2. Vitamin C 1000 mg p.o. daily. 3. Aspirin 81 mg q.h.s. 4. Biotin 5 mg p.o. daily. 5. Bisacodyl 5 mg p.o. daily. 6. Sinemet 1 tablet p.o. q.h.s. 7. Vitamin D3 5000 daily. 8. Plavix 75 mg p.o. daily. 9. Restasis 1 drop both eyes. 10.Cymbalta 60 mg p.o. b.i.d. 11.Epinephrine 0.3 p.r.n. 12.Iron sulfate 325 mg p.o. daily. 13.Advair 1 puff b.i.d. 14.Xopenex 2 puffs p.r.n. 15.Synthroid 88 mcg p.o. q.a.m. 16.Losartan 100 mg p.o. daily. 17.Lopressor 50 mg p.o. b.i.d. 18.Singular 10 mg q.h.s. 19.Multivitamins 1 p.o. daily. 20.Zofran 8 mg p.o. b.i.d. 21.Valtrex 1000 mg p.o. daily. 22.Vitamin B complex 1 p.o. daily. 23.Cubicin 500 mg IV daily. 24.Folic acid 1 mg daily. 25.Thiamine 100 mg p.o. daily. Once again, the patient will be discharged in stable condition with guarded prognosis. MMODL / IJN: [id number] /
== END 2018-04-19 16:12 | disposition home health service (06) | DRG 872 ==
LOC: EC 14:33 → 4MS4W 16:51
PROVIDERS: ADMIT Internal Medicine; ATTEND Internal Medicine
DX: A41.51 Sepsis due to Escherichia coli [E. coli] (principal); E23.2 Diabetes insipidus; I42.9 Cardiomyopathy, unspecified; I69.354 Hemiplegia and hemiparesis following cerebral infarction affecting left non-dominant side; I69.351 Hemiplegia and hemiparesis following cerebral infarction affecting right dominant side; I13.0 Hypertensive heart and chronic kidney disease with heart failure and stage 1 through stage 4 chronic kidney disease, or unspecified chronic kidney disease; D50.9 Iron deficiency anemia, unspecified; E03.9 Hypothyroidism, unspecified; E11.9 Type 2 diabetes mellitus without complications; E78.5 Hyperlipidemia, unspecified; F32.9 Major depressive disorder, single episode, unspecified; F41.0 Panic disorder [episodic paroxysmal anxiety]; G47.33 Obstructive sleep apnea (adult) (pediatric); G89.4 Chronic pain syndrome; I50.9 Heart failure, unspecified; J45.909 Unspecified asthma, uncomplicated; K21.9 Gastro-esophageal reflux disease without esophagitis; M19.90 Unspecified osteoarthritis, unspecified site; Z96.89 Presence of other specified functional implants; Z96.653 Presence of artificial knee joint, bilateral; Z96.651 Presence of right artificial knee joint; N18.3 Chronic kidney disease, stage 3 (moderate); M79.7 Fibromyalgia; S51.011A Laceration without foreign body of right elbow, initial encounter; W10.9XXA Fall (on) (from) unspecified stairs and steps, initial encounter; Z79.02 Long term (current) use of antithrombotics/antiplatelets; Z79.899 Other long term (current) drug therapy; Z82.3 Family history of stroke; Z85.830 Personal history of malignant neoplasm of bone; Z86.14 Personal history of Methicillin resistant Staphylococcus aureus infection; Z90.49 Acquired absence of other specified parts of digestive tract; Z90.710 Acquired absence of both cervix and uterus; Z98.84 Bariatric surgery status; Z79.890 Hormone replacement therapy; Z88.1 Allergy status to other antibiotic agents; Z91.041 Radiographic dye allergy status; Z91.011 Allergy to milk products; Z88.5 Allergy status to narcotic agent; Z88.0 Allergy status to penicillin; Z91.013 Allergy to seafood; Z88.7 Allergy status to serum and vaccine; Z88.8 Allergy status to other drugs, medicaments and biological substances; Z91.018 Allergy to other foods; Z98.51 Tubal ligation status; Z79.82 Long term (current) use of aspirin; Z79.891 Long term (current) use of opiate analgesic; E66.9 Obesity, unspecified; Z68.30 Body mass index [BMI] 30.0-30.9, adult; M54.9 Dorsalgia, unspecified
CPT/HCPCS: 36415; 71046; 80048; 80053; 81003; 83605; 84484; 85025; 85610; 85730; 87040; 87077; 87086; 87186; 93005; 94640; 96360; 96361; 99285

== ENCOUNTER 2018-06-23 14:56 | Inpatient (IN) | payer MEDICARE ==
[2018-06-23] MEDS ORDERED: SODIUM CHLORIDE 0.9% 1,000 ML IV ONE ×2 (15:06→16:15)
--- NOTE | 2018-06-23 15:33 | ED ---
General Adult HPI - General Chief complaint: Altered Mental Status Stated complaint: Altered Mental status Time Seen by Provider: 06/23/18 14:59 Source: patient, EMS, RN notes reviewed, old records reviewed Mode of arrival: EMS Limitations: altered mental status - History of Present Illness Initial comments: 68-year-old female presenting from assisted living facility with altered mental status and confusion over the past 2 weeks. Patient is poor historian, unable to give exact details. She is alert and oriented to self. She has no specific complaints, no pain complaints. Denies fever or chills. Denies abdominal pain nausea vomiting. Denies chest pain or shortness of breath. EMS did report the patient has pain pump which she has for chronic back pain. - Related Data Home Medications Medication Instructions Recorded Confirmed Clopidogrel [Plavix] 75 mg PO DAILY 01/04/14 06/23/18 DULoxetine HCL [Cymbalta] 60 mg PO BID 01/04/14 06/23/18 Levothyroxine Sodium [Synthroid] 88 mcg PO QAM 01/04/14 06/23/18 Aspirin 81 mg PO HS 02/07/14 06/23/18 valACYclovir HCL [Valtrex] 1,000 mg PO DAILY PRN 02/07/14 06/23/18 Vitamin B Complex 1 cap PO DAILY 02/21/15 06/23/18 Biotin 5 mg PO DAILY 04/26/15 06/23/18 Ascorbic Acid [Vitamin C] 1,000 mg PO DAILY 05/13/16 06/23/18 Carbidopa-Levodopa 25-100 mg 1 tab PO HS 03/26/18 06/23/18 [Sinemet 25-100 mg] Cholecalciferol [Vitamin D3] 5,000 unit PO DAILY 03/26/18 06/23/18 Levalbuterol Hfa Inhaler [Xopenex 2 puff INHALATION RT-Q6H PRN 03/26/18 06/23/18 Hfa Inhaler] Losartan Potassium 100 mg PO DAILY 03/26/18 06/23/18 Albuterol Nebulized [Ventolin 2.5 mg INHALATION RT-QID PRN 06/23/18 06/23/18 Nebulized] Cyanocobalamin (Vitamin B-12) 1,000 mcg PO DAILY 06/23/18 06/23/18 [Vitamin B-12] Fluticasone Nasal [place] [Flonase 1 spray EA NOSTRIL DAILY 06/23/18 06/23/18 Nasal [place]] Metoprolol Tartrate [Lopressor] 50 mg PO TID 06/23/18 06/23/18 amLODIPine [Norvasc] 2.5 mg PO DAILY 06/23/18 06/23/18 Previous Rx's Medication Instructions Recorded Folic Acid 1 mg PO DAILY@1200 #30 tab 04/02/18 Thiamine [Vitamin B-1] 100 mg PO DAILY@1200 #30 tab 04/02/18 Allergies Allergy/AdvReac Type Severity Reaction Status Date / Time aripiprazole [From Abilify] Allergy Anaphylaxis Verified 06/23/18 16:23 baclofen Allergy Anaphylaxis Verified 06/23/18 16:23 butalbital [From Fioricet] Allergy Rash/Hives Verified 06/23/18 16:23 cefadroxil hydrate Allergy Rash/Hives Verified 06/23/18 16:23 [From Duricef] cefazolin sodium Allergy Anaphylaxis Verified 06/23/18 16:23 [From Kefzol] cephalexin monohydrate Allergy Anaphylaxis Verified 06/23/18 16:23 [From Keflex] ciprofloxacin [From Cipro] Allergy Swelling Verified 06/23/18 16:23 OF THROAT ,RASH AND HIVES ciprofloxacin HCl Allergy Rash/Hives, Verified 06/23/18 16:23 [From Cipro] SWELLING OF THROAT clindamycin HCl Allergy Unknown Verified 06/23/18 16:23 [From Cleocin] clindamycin palmitate HCl Allergy Unknown Verified 06/23/18 16:23 [From Cleocin] clindamycin phosphate Allergy Unknown Verified 06/23/18 16:23 [From Cleocin] dexamethasone [From Decadron] Allergy Anaphylaxis Verified 06/23/18 16:23 dexamethasone sod phosphate Allergy Anaphylaxis Verified 06/23/18 16:23 [From Decadron] ,RASH divalproex sodium Allergy Rash/Hives Verified 06/23/18 16:23 [From Depakote] hydroxyzine HCl [From Atarax] Allergy Unknown Verified 06/23/18 16:23 ibuprofen [From Motrin] Allergy RASH Verified 06/23/18 16:23 ,ITCHING SWELLING OF THROAT influenza virus vaccine, Allergy Anaphylaxis Verified 06/23/18 16:23 specific [Influenza Virus Vacc,Specific] Iodinated Contrast- Oral and Allergy Anaphylaxis Verified 06/23/18 16:23 IV Dye ketorolac tromethamine Allergy Chest Pain Verified 06/23/18 16:23 [From Toradol] lidocaine HCl Allergy Anaphylaxis Verified 06/23/18 16:23 [From Xylocaine] lisinopril Allergy Swelling Verified 06/23/18 16:23 meperidine HCl [From Demerol] Allergy Rash/Hives Verified 06/23/18 16:23 Milk Containing Products Allergy ABDOMINAL Verified 06/23/18 16:23 PAIN NAUSEA AND VOMITING morphine Allergy Vomiting Verified 06/23/18 16:23 Mushroom Allergy Anaphylaxis Verified 06/23/18 16:23 nortriptyline HCl Allergy Unknown Verified 06/23/18 16:23 [From Pamelor] omalizumab [From Xolair] Allergy Anaphylaxis Verified 06/23/18 16:23 Penicillins Allergy Rash/Hives Verified 06/23/18 16:23 pregabalin [From Lyrica] Allergy Rash/Hives Verified 06/23/18 16:23 procaine HCl [From Novocain] Allergy Unknown Verified 06/23/18 16:23 shellfish derived Allergy Anaphylaxis Verified 06/23/18 16:23 sulfamethoxazole Allergy Unknown Verified 06/23/18 16:23 [From Septra] tetracycline [Tetracycline] Allergy Rash/Hives Verified 06/23/18 16:23 theophylline anhydrous Allergy Unknown Verified 06/23/18 16:23 [From Joel-Dur] triamcinolone Allergy Anaphylaxis Verified 06/23/18 16:23 trimethoprim [From Septra] Allergy RASH, Verified 06/23/18 16:23 ITCHING vancomycin Allergy ITCHING Verified 06/23/18 16:23 ,HIVES wheat Allergy Rash/Hives Verified 06/23/18 16:23 yellow dye Allergy Anaphylaxis Verified 06/23/18 16:23 erythromycin base AdvReac Rash/Hives Verified 06/23/18 16:23 fentanyl [From Duragesic] AdvReac Unknown Verified 06/23/18 16:23 NSAIDS (Non-Steroidal AdvReac Unknown Verified 06/23/18 16:23 Anti-Inflamma verapamil AdvReac Rash/Hives Verified 06/23/18 16:23 PAPER TAPE Allergy Rash/BLISTE Uncoded 04/27/18 13:31 RS PERSERATIVE IN ALBUTEROL Allergy Dyspnea Uncoded 04/27/18 13:31 INHALER PU steroids Allergy Rash/Hives Uncoded 04/27/18 13:31 WHITE SUTURE Allergy Swelling Uncoded 04/27/18 13:31 Review of Systems ROS Statement: Those systems with pertinent positive or pertinent negative responses have been documented in the HPI. ROS Other: All systems not noted in ROS Statement are negative. Past Medical History Past Medical History: Asthma, Cancer, Chest Pain / Angina, CVA/TIA, Fibromyalgia , GERD/Reflux, Hyperlipidemia, Hypertension, Osteoarthritis (OA), Renal Disease , Sleep Apnea/CPAP/BIPAP, Thyroid Disorder Additional Past Medical History / Comment(s): Pt recently admitted to [facility] on 03/26/18 with UTI/sepsis, hyponatremia/SIADH, hypomagnesemia, hypokalemia and bacterial MRSA. Other HX: Frequent falls, bilateral weakness from CVAs and loss of equalibrium-also had bilateral facial droops that resolve, pt states she has had 6 CVAs total, TIAs, L leg bone cancer and entire leg has titanium rods, R knee arthroplasty-pt fell and damaged artificial joint, chronic back pain, carpal tunnel syndrome bilateral elbows/shoulders, DJD, diabetes insipidus, LAUREN with no device since weight loss, CKD stage III, [place] bilaterally, anemia. History of Any Multi-Drug Resistant Organisms: MRSA Date of last positivie culture/infection: 03/26/18 MDRO Source:: BLOOD Past Surgical History: Appendectomy, Back Surgery, Bariatric Surgery, Cholecystectomy, Heart Catheterization, Hysterectomy, Joint Replacement, Orthopedic Surgery, Tubal Ligation Additional Past Surgical History / Comment(s): 04/02/18 PICC line for ABX, Lap band with removal, gastric sleeve, L leg titanium rods, R total knee arthroplasty, bilateral wrist carpal tunnel releases, R great toe surgery to remove a growth, lithotripsy, pain stimulator-nonfunctioning, pain clinic procedures, bilateral cataract removals. Past Anesthesia/Blood Transfusion Reactions: Previous Problems w/ Anesthesia Additional Past Anesthesia/Blood Transfusion Reaction / Comment(s): Slow to wake. Past Psychological History: Anxiety, Depression, Panic Disorder Smoking Status: Never smoker Past Alcohol Use History: None Reported Past Drug Use History: None Reported - Past Family History Father Additional Family Medical History / Comment(s): pt was 7 years old when her father was murdered/ from gsw Mother Family Medical History: CVA/TIA Daughter(s) Family Medical History: Deep Vein Thrombosis (DVT) Additional Family Medical History / Comment(s): dvt General Exam Limitations: altered mental status General appearance: alert, in no apparent distress Head exam: Present: atraumatic, normocephalic Eye exam: Present: normal appearance, PERRL ENT exam: Present: mucous membranes dry Neck exam: Present: normal inspection, full ROM. Absent: meningismus Respiratory exam: Present: normal lung sounds bilaterally. Absent: respiratory distress Cardiovascular Exam: Present: normal rhythm, tachycardia GI/Abdominal exam: Present: soft. Absent: distended, tenderness Extremities exam: Present: normal inspection, normal capillary refill. Absent: pedal edema Neurological exam: Present: alert. Absent: oriented X3, motor sensory deficit Psychiatric exam: Present: normal affect, normal mood Skin exam: Present: warm, dry, intact. Absent: cyanosis, diaphoretic Course Vital Signs 06/23/18 06/23/18 06/23/18 15:04 15:52 16:15 Temperature 98.1 F Pulse Rate 108 H 98 102 H Respiratory 16 16 16 Rate Blood Pressure 154/112 171/108 173/78 O2 Sat by Pulse 98 98 99 Oximetry EKG Findings - EKG Comments: EKG Findings:: Sinus tachycardia, rate of 126, possible left atrial enlargement , left ventricular hypertrophy, no ST segment elevation, there is T-wave inversion in the precordial leads. Rate of 126, WI interval 128, QRS duration 90, QTC 547. Medical Decision Making - Medical Decision Making 68-year-old female recent admission for MRSA bacteremia. Patient presenting with confusion. She does admit to decreased oral intake over the past several weeks. Symptoms have been present for the past 2 weeks according to staff at the assisted living facility and EMS report. Patient is mildly tachycardic, blood pressure stable. Afebrile. White blood cell count significantly elevated 19.6, hemoglobin is 14.5 out of his likely represent some hemoconcentration as recent hemoglobin was 10. Chest x-ray negative for focal pneumonia. Urinalysis negative for signs of infection. Electrolytes reveal mild hypokalemia which is replaced. Lactic acid 3.6 secondary to infection, sepsis, and dehydration. Troponin is mildly elevated 0.06, patient has no complaints of chest pain, this may be demand ischemia secondary to sepsis. Will try and troponin. Case is discussed with Dr. Krishna, antibiotics initiated emergency department including daptomycin and aztreonam. Culture results pending. Patient admitted for further evaluation treatment. - Lab Data Result diagrams: 06/23/18 15:22 06/23/18 15:22 Lab Results 06/23/18 06/23/18 06/23/18 Range/Units 15:22 15:22 15:22 WBC 19.6 H (3.8-10.6) k/uL RBC 5.47 H (3.80-5.40) m/uL Hgb 14.5 D (11.4-16.0) gm/dL Hct 44.8 (34.0-46.0) % MCV 81.9 (80.0-100.0) fL MCH 26.5 (25.0-35.0) pg MCHC 32.4 (31.0-37.0) g/dL RDW 13.5 (11.5-15.5) % Plt Count 474 H (150-450) k/uL Neutrophils % 88 % Lymphocytes % 8 % Monocytes % 2 % Eosinophils % 2 % Basophils % 0 % Neutrophils # 17.3 H (1.3-7.7) k/uL Lymphocytes # 1.5 (1.0-4.8) k/uL Monocytes # 0.5 (0-1.0) k/uL Eosinophils # 0.3 (0-0.7) k/uL Basophils # 0.0 (0-0.2) k/uL PT (9.0-12.0) sec INR (<1.2) APTT (22.0-30.0) sec Sodium 139 (137-145) mmol/L Potassium 3.2 L (3.5-5.1) mmol/L Chloride 91 L (98-107) mmol/L Carbon Dioxide 30 (22-30) mmol/L Anion Gap 18 mmol/L BUN 25 H (7-17) mg/dL Creatinine 0.82 (0.52-1.04) mg/dL Est GFR (CKD-EPI)AfAm 84 (>60 ml/min/1.73 sqM) Est GFR (CKD-EPI)NonAf 73 (>60 ml/min/1.73 sqM) Glucose 185 H (74-99) mg/dL Plasma Lactic Acid Anjel (0.7-2.0) mmol/L Calcium 10.6 H (8.4-10.2) mg/dL Total Bilirubin 1.3 (0.2-1.3) mg/dL AST 42 H (14-36) U/L ALT 39 (9-52) U/L Alkaline Phosphatase 94 (38-126) U/L Total Creatine Kinase 127 (30-135) U/L CK-MB (CK-2) 4.1 H (0.0-2.4) ng/mL CK-MB (CK-2) Rel Index 3.2 Troponin I 0.086 H* (0.000-0.034) ng/mL Total Protein 8.1 (6.3-8.2) g/dL Albumin 4.6 (3.5-5.0) g/dL Urine Color Urine Appearance (Clear) Urine pH (5.0-8.0) Ur Specific [place] (1.001-1.035) Urine Protein (Negative) Urine Glucose (UA) (Negative) Urine Ketones (Negative) Urine Blood (Negative) Urine Nitrite (Negative) Urine Bilirubin (Negative) Urine Urobilinogen (<2.0) mg/dL Ur Leukocyte Esterase (Negative) Urine WBC (0-5) /hpf Salicylates <1.0 mg/dL Urine Opiates Screen (NotDetected) Ur Oxycodone Screen (NotDetected) Urine Methadone Screen (NotDetected) Ur Propoxyphene Screen (NotDetected) Acetaminophen <10.0 ug/mL Ur Barbiturates Screen (NotDetected) U Tricyclic Antidepress (NotDetected) Ur Phencyclidine Scrn (NotDetected) Ur Amphetamines Screen (NotDetected) U Methamphetamines Scrn (NotDetected) U Benzodiazepines Scrn (NotDetected) Urine Cocaine Screen (NotDetected) U Marijuana (THC) Screen (NotDetected) Serum Alcohol <10 mg/dL 06/23/18 06/23/18 06/23/18 Range/Units 15:22 15:22 15:45 WBC (3.8-10.6) k/uL RBC (3.80-5.40) m/uL Hgb (11.4-16.0) gm/dL Hct (34.0-46.0) % MCV (80.0-100.0) fL MCH (25.0-35.0) pg MCHC (31.0-37.0) g/dL RDW (11.5-15.5) % Plt Count (150-450) k/uL Neutrophils % % Lymphocytes % % Monocytes % % Eosinophils % % Basophils % % Neutrophils # (1.3-7.7) k/uL Lymphocytes # (1.0-4.8) k/uL Monocytes # (0-1.0) k/uL Eosinophils # (0-0.7) k/uL Basophils # (0-0.2) k/uL PT 10.7 (9.0-12.0) sec INR 1.0 (<1.2) APTT 18.3 L (22.0-30.0) sec Sodium (137-145) mmol/L Potassium (3.5-5.1) mmol/L Chloride (98-107) mmol/L Carbon Dioxide (22-30) mmol/L Anion Gap mmol/L BUN (7-17) mg/dL Creatinine (0.52-1.04) mg/dL Est GFR (CKD-EPI)AfAm (>60 ml/min/1.73 sqM) Est GFR (CKD-EPI)NonAf (>60 ml/min/1.73 sqM) Glucose (74-99) mg/dL Plasma Lactic Acid Anjel 3.6 H* (0.7-2.0) mmol/L Calcium (8.4-10.2) mg/dL Total Bilirubin (0.2-1.3) mg/dL AST (14-36) U/L ALT (9-52) U/L Alkaline Phosphatase (38-126) U/L Total Creatine Kinase (30-135) U/L CK-MB (CK-2) (0.0-2.4) ng/mL CK-MB (CK-2) Rel Index Troponin I (0.000-0.034) ng/mL Total Protein (6.3-8.2) g/dL Albumin (3.5-5.0) g/dL Urine Color Dark Brown Urine Appearance Clear (Clear) Urine pH 6.0 (5.0-8.0) Ur Specific [place] 1.021 (1.001-1.035) Urine Protein 2+ H (Negative) Urine Glucose (UA) Negative (Negative) Urine Ketones Negative (Negative) Urine Blood Negative (Negative) Urine Nitrite Negative (Negative) Urine Bilirubin Negative (Negative) Urine Urobilinogen 2.0 (<2.0) mg/dL Ur Leukocyte Esterase Negative (Negative) Urine WBC <1 (0-5) /hpf Salicylates mg/dL Urine Opiates Screen Detected H (NotDetected) Ur Oxycodone Screen Not Detected (NotDetected) Urine Methadone Screen Not Detected (NotDetected) Ur Propoxyphene Screen Not Detected (NotDetected) Acetaminophen ug/mL Ur Barbiturates Screen Not Detected (NotDetected) U Tricyclic Antidepress Not Detected (NotDetected) Ur Phencyclidine Scrn Not Detected (NotDetected) Ur Amphetamines Screen Not Detected (NotDetected) U Methamphetamines Scrn Not Detected (NotDetected) U Benzodiazepines Scrn Not Detected (NotDetected) Urine Cocaine Screen Not Detected (NotDetected) U Marijuana (THC) Screen Not Detected (NotDetected) Serum Alcohol mg/dL Critical Care Time Critical Care Time: Yes Total Critical Care Time: 35 Disposition Clinical Impression: Sepsis, General weakness Disposition: ADMITTED IP TO THIS [facility] Condition: Stable Is patient prescribed a controlled substance at d/c from ED?: No Referrals: Kaur Cabello MD [Primary Care Provider] - 1-2 days Decision to Admit Reason: Admit from EC Decision Date: 06/23/18 Decision Time: 16:58
[2018-06-23 15:37] LABS: Basophils % (A) 0 %; Eosinophils # (A) 0.3 k/uL (0-0.7); Eosinophils % (A) 2 %; HCT 44.8 % (34.0-46.0); Lymphocytes # (A) 1.5 k/uL (1.0-4.8); Lymphocytes % (A) 8 %; MCH 26.5 pg (25.0-35.0); MCHC 32.4 g/dL (31.0-37.0); MCV 81.9 fL (80.0-100.0); Mean Platelet Volume 7.1; Monocytes # (A) 0.5 k/uL (0-1.0); Monocytes % (A) 2 %; Neutrophils # (A) 17.3 k/uL (1.3-7.7); Neutrophils % (A) 88 %; Platelet Count 474 k/uL (150-450); RBC 5.47 m/uL (3.80-5.40); RDW 13.5 % (11.5-15.5); WBC 19.6 k/uL (3.8-10.6)
[2018-06-23 15:42] LABS: HGB 14.5 gm/dL (11.4-16.0)
[2018-06-23 15:46] LABS: Prothrombin Time 10.7 sec (9.0-12.0)
[2018-06-23 15:47] LABS: ALT 39 U/L (9-52); AST 42 U/L (14-36); Acetaminophen <10.0 ug/mL; Albumin 4.6 g/dL (3.5-5.0); Alcohol <10 mg/dL; Alkaline Phosphatase 94 U/L (38-126); Anion Gap 18 mmol/L; Blood Urea Nitrogen 25 mg/dL (7-17); Calcium 10.6 mg/dL (8.4-10.2); Carbon Dioxide 30 mmol/L (22-30); Chloride 91 mmol/L (98-107); Glucose 185 mg/dL (74-99); Potassium 3.2 mmol/L (3.5-5.1); Salicylate <1.0 mg/dL; Sodium 139 mmol/L (137-145); Total Bilirubin 1.3 mg/dL (0.2-1.3); Total Protein 8.1 g/dL (6.3-8.2)
[2018-06-23 15:56] LABS: Partial Thromboplastin Time 18.3 sec (22.0-30.0)
[2018-06-23 16:02] LABS: Creatine Kinase MB 4.1 ng/mL (0.0-2.4)
[2018-06-23 16:10] LABS: Troponin I 0.086 ng/mL (0.000-0.034)
[2018-06-23 16:14] LABS: Appearance,Urine Clear (Clear); Bilirubin,Urine Negative (Negative); Blood,Urine Negative (Negative); Color,Urine Dark Brown; Glucose,Urine (UA) Negative (Negative); Ketones,Urine Negative (Negative); Leukocyte Esterase,Urine Negative (Negative); Nitrite,Urine Negative (Negative); Protein,Urine 2+ (Negative); Specific Gravity,Urine 1.021 (1.001-1.035); WBC,Urine <1 /hpf (0-5)
[2018-06-23] MEDS ORDERED: LINEZOLID 600 MG in DEXTROSE/WATER 1 300ML.BAG IVPB STA (16:17)
--- NOTE | 2018-06-23 16:17 | XR ---
EXAMINATION TYPE: XR chest 2V DATE OF EXAM: 06/23/2018 COMPARISON: 04/06/2018 HISTORY: 68-year-old female confusion, altered mental status TECHNIQUE: AP and lateral views FINDINGS: Heart normal size. Aorta and pulmonary vasculature within normal limits. No consolidation or pleural effusion. Spinal stimulator array centered along the mid thoracic spinal canal. Cholecystectomy clips . IMPRESSION: No acute cardiopulmonary process.
[2018-06-23 16:22] LABS: Amphetamine Screen,Urine Not Detected (NotDetected); Barbiturate Screen,Urine Not Detected (NotDetected); Benzodiazepines Screen,Urine Not Detected (NotDetected); Cocaine Screen,Urine Not Detected (NotDetected); Methadone Screen, Urine Not Detected (NotDetected); Opiate Screen,Urine Detected (NotDetected); Oxycodone Screen, Urine Not Detected (NotDetected); Phencyclidine Screen,Urine Not Detected (NotDetected); Tricyclic Antidepressant,Urine Not Detected (NotDetected); Urn Cannabinoid Scrn Not Detected (NotDetected)
--- NOTE | 2018-06-23 16:31 | CT ---
EXAMINATION TYPE: CT brain wo con DATE OF EXAM: 06/23/2018 COMPARISON: 04/06/2018 HISTORY: 68-year-old female confusion, altered mental status TECHNIQUE: Examination was done in axial plane without intravenous contrast. Coronal and sagittal r econstructions performed. CT DLP: 1129.4 mGycm Automated exposure control for dose reduction was used. FINDINGS: There is no evidence of acute intracranial hemorrhage, acute ischemic changes, mass, mass-effect, or extra-axial fluid collection. There is no effacement of cerebral sulci or basal subarachnoid cister ns. There is no hydrocephalus. There is no midline shift. Dow[place]-white matter distinction is preserv ed. Mild generalized supratentorial volume loss. Moderate patchy and confluent white matter hypodensities in both cerebral hemispheres. Benign basal ganglionic calcifications. Focal hypodensities left basal ganglia suggestive of old lacunar infarcts. Paranasal sinuses and mastoid air cells are well pneumatized. Rightward nasal septal deviation. Orbit s and globes are intact. IMPRESSION: Similar mild generalized atrophy and moderate confluent changes of chronic small vessel ischemic dise ase. No acute intracranial abnormality seen.
[2018-06-23] MEDS ORDERED: POTASSIUM CHLORIDE ER 20 MEQ TAB.ER PO STA (16:36)
[2018-06-23] MEDS ORDERED: AZTREONAM 2 GM in SODIUM CHLORIDE 0.9% 100 ML IVPB STA (16:44)
[2018-06-23] MEDS ORDERED: DAPTOmycin 500 MG in SODIUM CHLORIDE 0.9% 50 ML IVPB STA (16:45)
[2018-06-23] MEDS ORDERED: NALOXONE 0.4 MG/ML 1 ML VIAL IV PRN (16:46)
[2018-06-23] MEDS ORDERED: ACETAMINOPHEN TAB 325 MG TAB PO PRN (16:46)
[2018-06-23] MEDS ORDERED: valACYclovir HCL 1,000 MG TABLET PO PRN (17:23)
[2018-06-23] MEDS ORDERED: ALBUTEROL NEBULIZED 2.5 MG/3 ML INHALATION PRN (17:23)
[2018-06-23 17:50] LABS: Glucose,Whole Blood 175 mg/dL (75-99)
--- NOTE | 2018-06-23 18:30 | P.HPIM ---
History of Present Illness 68-year-old pleasant female was sent in from assisted living with altered mental status patient is alert oriented times around 2-3 don't remember her baseline patient was seen by me in the past at that time it was believed patient has infected pain pump in the back and the patient has MRSA bacteremia for which she was treated with daptomycin. And patient is unable to provide much history mostly because of her grieving issues rather than confusion. Although patient does have leukocytosis unsure whether she had fever at the facility was sent in here for a predominantly with altered mental status does have leukocytosis elevated lactic acid, blood cultures were obtained. Infectious disease was consulted patient was started on daptomycin and azetreonam along with IV fluids. Chest x-ray and urinalysis did not show any significant abnormality additionally patient has minimally elevated troponin probably related to sepsis. Patient denied any chest pain at this time. Patient has some left ventricular hypertrophy with possible repolarization abnormalities . Tachycardic. Since of troponins will be obtained. Review of Systems Most of the review of systems unable to obtain due to her clinical condition rest of the ones that are significant are already discussed in HPI Past Medical History Past Medical History: Asthma, Cancer, Chest Pain / Angina, CVA/TIA, Fibromyalgia , GERD/Reflux, Hyperlipidemia, Hypertension, Osteoarthritis (OA), Renal Disease , Sleep Apnea/CPAP/BIPAP, Thyroid Disorder Additional Past Medical History / Comment(s): Pt recently admitted to [facility] on 03/26/18 with UTI/sepsis, hyponatremia/SIADH, hypomagnesemia, hypokalemia and bacterial MRSA. Other HX: Frequent falls, bilateral weakness from CVAs and loss of equalibrium-also had bilateral facial droops that resolve, pt states she has had 6 CVAs total, TIAs, L leg bone cancer and entire leg has titanium rods, R knee arthroplasty-pt fell and damaged artificial joint, chronic back pain, carpal tunnel syndrome bilateral elbows/shoulders, DJD, diabetes insipidus, LAUREN with no device since weight loss, CKD stage III, SQUAXIN bilaterally, anemia. History of Any Multi-Drug Resistant Organisms: MRSA Date of last positivie culture/infection: 03/26/18 MDRO Source:: BLOOD Past Surgical History: Appendectomy, Back Surgery, Bariatric Surgery, Cholecystectomy, Heart Catheterization, Hysterectomy, Joint Replacement, Orthopedic Surgery, Tubal Ligation Additional Past Surgical History / Comment(s): 04/02/18 PICC line for ABX, Lap band with removal, gastric sleeve, L leg titanium rods, R total knee arthroplasty, bilateral wrist carpal tunnel releases, R great toe surgery to remove a growth, lithotripsy, pain stimulator-nonfunctioning, pain clinic procedures, bilateral cataract removals. Past Anesthesia/Blood Transfusion Reactions: Previous Problems w/ Anesthesia Additional Past Anesthesia/Blood Transfusion Reaction / Comment(s): Slow to wake. Past Psychological History: Anxiety, Depression, Panic Disorder Smoking Status: Never smoker Past Alcohol Use History: None Reported Past Drug Use History: None Reported - Past Family History Father Additional Family Medical History / Comment(s): pt was 7 years old when her father was murdered/ from gsw Mother Family Medical History: CVA/TIA Daughter(s) Family Medical History: Deep Vein Thrombosis (DVT) Additional Family Medical History / Comment(s): dvt Medications and Allergies Home Medications Medication Instructions Recorded Confirmed Type Clopidogrel [Plavix] 75 mg PO DAILY 01/04/14 06/23/18 History DULoxetine HCL [Cymbalta] 60 mg PO BID 01/04/14 06/23/18 History Levothyroxine Sodium [Synthroid] 88 mcg PO QAM 01/04/14 06/23/18 History Aspirin 81 mg PO HS 02/07/14 06/23/18 History valACYclovir HCL [Valtrex] 1,000 mg PO DAILY PRN 02/07/14 06/23/18 History Vitamin B Complex 1 cap PO DAILY 02/21/15 06/23/18 History Biotin 5 mg PO DAILY 04/26/15 06/23/18 History Ascorbic Acid [Vitamin C] 1,000 mg PO DAILY 05/13/16 06/23/18 History Carbidopa-Levodopa 25-100 mg 1 tab PO HS 03/26/18 06/23/18 History [Sinemet 25-100 mg] Cholecalciferol [Vitamin D3] 5,000 unit PO DAILY 03/26/18 06/23/18 History Levalbuterol Hfa Inhaler [Xopenex 2 puff INHALATION RT-Q6H PRN 03/26/18 History Hfa Inhaler] Losartan Potassium 100 mg PO DAILY 03/26/18 06/23/18 History Folic Acid 1 mg PO DAILY@1200 #30 tab 04/02/18 06/23/18 Rx Thiamine [Vitamin B-1] 100 mg PO DAILY@1200 #30 tab 04/02/18 06/23/18 Rx Albuterol Nebulized [Ventolin 2.5 mg INHALATION RT-QID PRN 06/23/18 06/23/18 History Nebulized] Cyanocobalamin (Vitamin B-12) 1,000 mcg PO DAILY 06/23/18 06/23/18 History [Vitamin B-12] Fluticasone Nasal Imperial [Flonase 1 spray EA NOSTRIL DAILY 06/23/18 06/23/18 History Nasal Imperial] Metoprolol Tartrate [Lopressor] 50 mg PO TID 06/23/18 06/23/18 History amLODIPine [Norvasc] 2.5 mg PO DAILY 06/23/18 06/23/18 History Allergies Allergy/AdvReac Type Severity Reaction Status Date / Time aripiprazole [From Abilify] Allergy Anaphylaxis Verified 06/23/18 16:23 baclofen Allergy Anaphylaxis Verified 06/23/18 16:23 butalbital [From Fioricet] Allergy Rash/Hives Verified 06/23/18 16:23 cefadroxil hydrate Allergy Rash/Hives Verified 06/23/18 16:23 [From Duricef] cefazolin sodium Allergy Anaphylaxis Verified 06/23/18 16:23 [From Kefzol] cephalexin monohydrate Allergy Anaphylaxis Verified 06/23/18 16:23 [From Keflex] ciprofloxacin [From Cipro] Allergy Swelling Verified 06/23/18 16:23 OF THROAT ,RASH AND HIVES ciprofloxacin HCl Allergy Rash/Hives, Verified 06/23/18 16:23 [From Cipro] SWELLING OF THROAT clindamycin HCl Allergy Unknown Verified 06/23/18 16:23 [From Cleocin] clindamycin palmitate HCl Allergy Unknown Verified 06/23/18 16:23 [From Cleocin] clindamycin phosphate Allergy Unknown Verified 06/23/18 16:23 [From Cleocin] dexamethasone [From Decadron] Allergy Anaphylaxis Verified 06/23/18 16:23 dexamethasone sod phosphate Allergy Anaphylaxis Verified 06/23/18 16:23 [From Decadron] ,RASH divalproex sodium Allergy Rash/Hives Verified 06/23/18 16:23 [From Depakote] hydroxyzine HCl [From Atarax] Allergy Unknown Verified 06/23/18 16:23 ibuprofen [From Motrin] Allergy RASH Verified 06/23/18 16:23 ,ITCHING SWELLING OF THROAT influenza virus vaccine, Allergy Anaphylaxis Verified 06/23/18 16:23 specific [Influenza Virus Vacc,Specific] Iodinated Contrast- Oral and Allergy Anaphylaxis Verified 06/23/18 16:23 IV Dye ketorolac tromethamine Allergy Chest Pain Verified 06/23/18 16:23 [From Toradol] lidocaine HCl Allergy Anaphylaxis Verified 06/23/18 16:23 [From Xylocaine] lisinopril Allergy Swelling Verified 06/23/18 16:23 meperidine HCl [From Demerol] Allergy Rash/Hives Verified 06/23/18 16:23 Milk Containing Products Allergy ABDOMINAL Verified 06/23/18 16:23 PAIN NAUSEA AND VOMITING morphine Allergy Vomiting Verified 06/23/18 16:23 Mushroom Allergy Anaphylaxis Verified 06/23/18 16:23 nortriptyline HCl Allergy Unknown Verified 06/23/18 16:23 [From Pamelor] omalizumab [From Xolair] Allergy Anaphylaxis Verified 06/23/18 16:23 Penicillins Allergy Rash/Hives Verified 06/23/18 16:23 pregabalin [From Lyrica] Allergy Rash/Hives Verified 06/23/18 16:23 procaine HCl [From Novocain] Allergy Unknown Verified 06/23/18 16:23 shellfish derived Allergy Anaphylaxis Verified 06/23/18 16:23 sulfamethoxazole Allergy Unknown Verified 06/23/18 16:23 [From Septra] tetracycline [Tetracycline] Allergy Rash/Hives Verified 06/23/18 16:23 theophylline anhydrous Allergy Unknown Verified 06/23/18 16:23 [From Joel-Dur] triamcinolone Allergy Anaphylaxis Verified 06/23/18 16:23 trimethoprim [From Septra] Allergy RASH, Verified 06/23/18 16:23 ITCHING vancomycin Allergy ITCHING Verified 06/23/18 16:23 ,HIVES wheat Allergy Rash/Hives Verified 06/23/18 16:23 yellow dye Allergy Anaphylaxis Verified 06/23/18 16:23 erythromycin base AdvReac Rash/Hives Verified 06/23/18 16:23 fentanyl [From Duragesic] AdvReac Unknown Verified 06/23/18 16:23 NSAIDS (Non-Steroidal AdvReac Unknown Verified 06/23/18 16:23 Anti-Inflamma verapamil AdvReac Rash/Hives Verified 06/23/18 16:23 PAPER TAPE Allergy Rash/BLISTE Uncoded 04/27/18 13:31 RS PERSERATIVE IN ALBUTEROL Allergy Dyspnea Uncoded 04/27/18 13:31 INHALER PU steroids Allergy Rash/Hives Uncoded 04/27/18 13:31 WHITE SUTURE Allergy Swelling Uncoded 04/27/18 13:31 Physical Exam Vitals: Vital Signs Temp Pulse Resp BP Pulse Ox 06/23/18 17:53 98.3 F 89 16 162/81 99 06/23/18 16:15 102 H 16 173/78 99 06/23/18 15:52 98 16 171/108 98 06/23/18 15:04 98.1 F 108 H 16 154/112 98 Intake and Output 06/23/18 06/23/18 06/23/18 06:59 14:59 22:59 Output Total 500 Balance -500 Output: Urine 500 Straight 500 Other: Weight 68.039 kg PHYSICAL EXAMINATION: GENERAL: The patient is alert and oriented x2-3, appears to be bit lethargic bedbound HEENT: Pupils are round and equally reacting to light. EOMI. No scleral icterus. No conjunctival pallor. Normocephalic, atraumatic. No pharyngeal erythema. No thyromegaly. CARDIOVASCULAR: S1 and S2 present. No murmurs, rubs, or gallops. PULMONARY: Chest is clear to auscultation, no wheezing or crackles. ABDOMEN: Soft, nontender, nondistended, normoactive bowel sounds. No palpable organomegaly. MUSCULOSKELETAL: No joint swelling or deformity. EXTREMITIES: No cyanosis, clubbing, or pedal edema. NEUROLOGICAL: Gross neurological examination did not reveal any focal deficits. SKIN: No rashes. Results CBC & Chem 7: 06/23/18 15:22 06/23/18 15:22 Labs: Abnormal Lab Results - Last 24 Hours (Table) 06/23/18 06/23/18 06/23/18 Range/Units 15:22 15:22 15:22 WBC 19.6 H (3.8-10.6) k/uL RBC 5.47 H (3.80-5.40) m/uL Plt Count 474 H (150-450) k/uL Neutrophils # 17.3 H (1.3-7.7) k/uL APTT (22.0-30.0) sec Potassium 3.2 L (3.5-5.1) mmol/L Chloride 91 L (98-107) mmol/L BUN 25 H (7-17) mg/dL Glucose 185 H (74-99) mg/dL POC Glucose (mg/dL) (75-99) mg/dL Plasma Lactic Acid Anjel (0.7-2.0) mmol/L Calcium 10.6 H (8.4-10.2) mg/dL AST 42 H (14-36) U/L CK-MB (CK-2) 4.1 H (0.0-2.4) ng/mL Troponin I 0.086 H* (0.000-0.034) ng/mL Urine Protein (Negative) Urine Opiates Screen (NotDetected) 06/23/18 06/23/18 06/23/18 Range/Units 15:22 15:22 15:45 WBC (3.8-10.6) k/uL RBC (3.80-5.40) m/uL Plt Count (150-450) k/uL Neutrophils # (1.3-7.7) k/uL APTT 18.3 L (22.0-30.0) sec Potassium (3.5-5.1) mmol/L Chloride (98-107) mmol/L BUN (7-17) mg/dL Glucose (74-99) mg/dL POC Glucose (mg/dL) (75-99) mg/dL Plasma Lactic Acid Anjel 3.6 H* (0.7-2.0) mmol/L Calcium (8.4-10.2) mg/dL AST (14-36) U/L CK-MB (CK-2) (0.0-2.4) ng/mL Troponin I (0.000-0.034) ng/mL Urine Protein 2+ H (Negative) Urine Opiates Screen Detected H (NotDetected) 06/23/18 Range/Units 15:55 WBC (3.8-10.6) k/uL RBC (3.80-5.40) m/uL Plt Count (150-450) k/uL Neutrophils # (1.3-7.7) k/uL APTT (22.0-30.0) sec Potassium (3.5-5.1) mmol/L Chloride (98-107) mmol/L BUN (7-17) mg/dL Glucose (74-99) mg/dL POC Glucose (mg/dL) 175 H (75-99) mg/dL Plasma Lactic Acid Anjel (0.7-2.0) mmol/L Calcium (8.4-10.2) mg/dL AST (14-36) U/L CK-MB (CK-2) (0.0-2.4) ng/mL Troponin I (0.000-0.034) ng/mL Urine Protein (Negative) Urine Opiates Screen (NotDetected) Assessment and Plan Plan: -Possible sepsis: IV fluids as mentioned above repeat lactic acid again antibiotics daptomycin and aztreonam, awaiting infectious disease recommendations. Source is not clear definitely infected pain pump is a consideration like last time. -Lactic is doses possibly secondary to sepsis IV fluids as mentioned above repeat lactic acid again -Mildly elevated troponin secondary to possible sepsis as mentioned above, daily consultation repeat troponins. -Fibromyalgia chronic pain syndrome for which patient has a pain pump in place -Hyperlipidemia -Obstructive sleep apnea for which patient has CPAP machine at home Hypothyroidism -History of bariatric surgery -History of diabetes insipidus with the chronic hyponatremia which is not an issue now. CODE STATUS at to find out from the rehabilitation facility
[2018-06-23] MEDS: SODIUM CHLORIDE 0.9% 1,000 ML IV SCH (18:59)
[2018-06-23] MEDS: DAPTOmycin 500 MG in SODIUM CHLORIDE 0.9% 50 ML IVPB SCH (21:28)
[2018-06-23] MEDS: ASPIRIN 81 MG PO SCH (21:28)
[2018-06-23] MEDS: CARBIDOPA-LEVODOPA 25-100 MG 1 EACH TAB PO SCH (21:28)
[2018-06-23] MEDS: METOPROLOL TARTRATE 50 MG TAB PO SCH (21:28)
[2018-06-23] MEDS: DULoxetine HCL 60 MG CAPSULE.DR PO SCH (21:28)
[2018-06-23] MEDS: AZTREONAM 2 GM in SODIUM CHLORIDE 0.9% 100 ML IVPB SCH (23:40)
[2018-06-24 04:12] LABS: Basophils % (A) 0 %; Eosinophils # (A) 0.1 k/uL (0-0.7); Eosinophils % (A) 1 %; HCT 34.3 % (34.0-46.0); Lymphocytes # (A) 1.9 k/uL (1.0-4.8); Lymphocytes % (A) 16 %; MCH 26.7 pg (25.0-35.0); MCHC 32.1 g/dL (31.0-37.0); MCV 83.2 fL (80.0-100.0); Mean Platelet Volume 6.8; Monocytes # (A) 0.4 k/uL (0-1.0); Monocytes % (A) 3 %; Neutrophils # (A) 9.6 k/uL (1.3-7.7); Neutrophils % (A) 79 %; Platelet Count 330 k/uL (150-450); RBC 4.13 m/uL (3.80-5.40); RDW 13.8 % (11.5-15.5)
[2018-06-24 04:22] LABS: ALT 35 U/L (9-52); AST 26 U/L (14-36); Albumin 2.9 g/dL (3.5-5.0); Alkaline Phosphatase 60 U/L (38-126); Anion Gap 6 mmol/L; Blood Urea Nitrogen 23 mg/dL (7-17); Calcium 8.6 mg/dL (8.4-10.2); Carbon Dioxide 26 mmol/L (22-30); Chloride 106 mmol/L (98-107); Glucose 102 mg/dL (74-99); Potassium 3.2 mmol/L (3.5-5.1); Sodium 138 mmol/L (137-145); Total Bilirubin 0.7 mg/dL (0.2-1.3); Total Protein 5.4 g/dL (6.3-8.2)
[2018-06-24] MEDS: SODIUM CHLORIDE 0.9% 1,000 ML IV SCH ×2 (05:38→20:22)
[2018-06-24] MEDS: LEVOTHYROXINE 88 MCG TAB PO SCH (05:40)
[2018-06-24] MEDS: DULoxetine HCL 60 MG CAPSULE.DR PO SCH ×2 (08:23→20:21)
[2018-06-24] MEDS: THIAMINE 100 MG TAB PO SCH (08:23)
[2018-06-24] MEDS: amLODIPine 2.5 MG TAB PO SCH ×2 (08:23→18:07)
[2018-06-24] MEDS: CLOPIDOGREL 75 MG TAB PO SCH (08:24)
[2018-06-24] MEDS: METOPROLOL TARTRATE 50 MG TAB PO SCH ×3 (08:24→20:21)
[2018-06-24] MEDS: AZTREONAM 2 GM in SODIUM CHLORIDE 0.9% 100 ML IVPB SCH ×2 (08:24→16:19)
[2018-06-24] MEDS: FLUTICASONE 50MCG/SPRAY NASAL 16GM EA NOSTRIL SCH (08:24)
--- NOTE | 2018-06-24 10:36 | P.CRDCN ---
History of Present Illness Consult date: 06/24/18 History of present illness: This 68-year-old female who lives in assisted living, was brought to the hospital with altered mental status. She has history of infected pain pump in the back and had staph bacteremia which was MRSA. Patient was on antibiotic therapy in the past. She is currently being treated with possible infection. We are asked to see the patient because of abnormal troponin values. The trend of troponin elevation is not consistent with acute myocardial injury pattern. EKG showed sinus tachycardia with a diffuse hypertrophic changes. At the time of my examination patient is alert and doesn't appear to be in acute distress. Patient had a previous echocardiogram which showed mildly impaired LV function with an ejection fraction of 45%. I will obtain a repeat echocardiogram. If echocardiogram doesn't show any new wall motion normalities, no further cardiac evaluation at this time. However underlying ischemic heart disease cannot be completely excluded. Conservative management is suggested Review of Systems As per the chart Past Medical History Past Medical History: Asthma, Cancer, Chest Pain / Angina, CVA/TIA, Fibromyalgia , GERD/Reflux, Hyperlipidemia, Hypertension, Osteoarthritis (OA), Renal Disease , Sleep Apnea/CPAP/BIPAP, Thyroid Disorder Additional Past Medical History / Comment(s): Pt recently admitted to [facility] on 03/26/18 with UTI/sepsis, hyponatremia/SIADH, hypomagnesemia, hypokalemia and bacterial MRSA. Other HX: Frequent falls, bilateral weakness from CVAs and loss of equalibrium-also had bilateral facial droops that resolve, pt states she has had 6 CVAs total, TIAs, L leg bone cancer and entire leg has titanium rods, R knee arthroplasty-pt fell and damaged artificial joint, chronic back pain, carpal tunnel syndrome bilateral elbows/shoulders, DJD, diabetes insipidus, LAUREN with no device since weight loss, CKD stage III, [place] bilaterally, anemia. History of Any Multi-Drug Resistant Organisms: MRSA Date of last positivie culture/infection: 03/26/18 MDRO Source:: BLOOD Past Surgical History: Appendectomy, Back Surgery, Bariatric Surgery, Cholecystectomy, Heart Catheterization, Hysterectomy, Joint Replacement, Orthopedic Surgery, Tubal Ligation Additional Past Surgical History / Comment(s): 04/02/18 PICC line for ABX, Lap band with removal, gastric sleeve, L leg titanium rods, R total knee arthroplasty, bilateral wrist carpal tunnel releases, R great toe surgery to remove a growth, lithotripsy, pain stimulator-nonfunctioning, pain clinic procedures, bilateral cataract removals. Past Anesthesia/Blood Transfusion Reactions: Previous Problems w/ Anesthesia Additional Past Anesthesia/Blood Transfusion Reaction / Comment(s): Slow to wake. Past Psychological History: Anxiety, Depression, Panic Disorder Smoking Status: Never smoker Past Alcohol Use History: None Reported Past Drug Use History: None Reported - Past Family History Father Additional Family Medical History / Comment(s): pt was 7 years old when her father was murdered/ from w Mother Family Medical History: CVA/TIA Daughter(s) Family Medical History: Deep Vein Thrombosis (DVT) Additional Family Medical History / Comment(s): dvt Medications and Allergies Home Medications Medication Instructions Recorded Confirmed Type Clopidogrel [Plavix] 75 mg PO DAILY 01/04/14 06/23/18 History DULoxetine HCL [Cymbalta] 60 mg PO BID 01/04/14 06/23/18 History Levothyroxine Sodium [Synthroid] 88 mcg PO QAM 01/04/14 06/23/18 History Aspirin 81 mg PO HS 02/07/14 06/23/18 History valACYclovir HCL [Valtrex] 1,000 mg PO DAILY PRN 02/07/14 06/23/18 History Vitamin B Complex 1 cap PO DAILY 02/21/15 06/23/18 History Biotin 5 mg PO DAILY 04/26/15 06/23/18 History Ascorbic Acid [Vitamin C] 1,000 mg PO DAILY 05/13/16 06/23/18 History Carbidopa-Levodopa 25-100 mg 1 tab PO HS 03/26/18 06/23/18 History [Sinemet 25-100 mg] Cholecalciferol [Vitamin D3] 5,000 unit PO DAILY 03/26/18 06/23/18 History Levalbuterol Hfa Inhaler [Xopenex 2 puff INHALATION RT-Q6H PRN 03/26/18 History Hfa Inhaler] Losartan Potassium 100 mg PO DAILY 03/26/18 06/23/18 History Folic Acid 1 mg PO DAILY@1200 #30 tab 04/02/18 06/23/18 Rx Thiamine [Vitamin B-1] 100 mg PO DAILY@1200 #30 tab 04/02/18 06/23/18 Rx Albuterol Nebulized [Ventolin 2.5 mg INHALATION RT-QID PRN 06/23/18 06/23/18 History Nebulized] Cyanocobalamin (Vitamin B-12) 1,000 mcg PO DAILY 06/23/18 06/23/18 History [Vitamin B-12] Fluticasone Nasal Dos Rios [Flonase 1 spray EA NOSTRIL DAILY 06/23/18 06/23/18 History Nasal Dos Rios] Metoprolol Tartrate [Lopressor] 50 mg PO TID 06/23/18 06/23/18 History amLODIPine [Norvasc] 2.5 mg PO DAILY 06/23/18 06/23/18 History Allergies Allergy/AdvReac Type Severity Reaction Status Date / Time aripiprazole [From Abilify] Allergy Anaphylaxis Verified 06/23/18 16:23 baclofen Allergy Anaphylaxis Verified 06/23/18 16:23 butalbital [From Fioricet] Allergy Rash/Hives Verified 06/23/18 16:23 cefadroxil hydrate Allergy Rash/Hives Verified 06/23/18 16:23 [From Duricef] cefazolin sodium Allergy Anaphylaxis Verified 06/23/18 16:23 [From Kefzol] cephalexin monohydrate Allergy Anaphylaxis Verified 06/23/18 16:23 [From Keflex] ciprofloxacin [From Cipro] Allergy Swelling Verified 06/23/18 16:23 OF THROAT ,RASH AND HIVES ciprofloxacin HCl Allergy Rash/Hives, Verified 06/23/18 16:23 [From Cipro] SWELLING OF THROAT clindamycin HCl Allergy Unknown Verified 06/23/18 16:23 [From Cleocin] clindamycin palmitate HCl Allergy Unknown Verified 06/23/18 16:23 [From Cleocin] clindamycin phosphate Allergy Unknown Verified 06/23/18 16:23 [From Cleocin] dexamethasone [From Decadron] Allergy Anaphylaxis Verified 06/23/18 16:23 dexamethasone sod phosphate Allergy Anaphylaxis Verified 06/23/18 16:23 [From Decadron] ,RASH divalproex sodium Allergy Rash/Hives Verified 06/23/18 16:23 [From Depakote] hydroxyzine HCl [From Atarax] Allergy Unknown Verified 06/23/18 16:23 ibuprofen [From Motrin] Allergy RASH Verified 06/23/18 16:23 ,ITCHING SWELLING OF THROAT influenza virus vaccine, Allergy Anaphylaxis Verified 06/23/18 16:23 specific [Influenza Virus Vacc,Specific] Iodinated Contrast- Oral and Allergy Anaphylaxis Verified 06/23/18 16:23 IV Dye ketorolac tromethamine Allergy Chest Pain Verified 06/23/18 16:23 [From Toradol] lidocaine HCl Allergy Anaphylaxis Verified 06/23/18 16:23 [From Xylocaine] lisinopril Allergy Swelling Verified 06/23/18 16:23 meperidine HCl [From Demerol] Allergy Rash/Hives Verified 06/23/18 16:23 Milk Containing Products Allergy ABDOMINAL Verified 06/23/18 16:23 PAIN NAUSEA AND VOMITING morphine Allergy Vomiting Verified 06/23/18 16:23 Mushroom Allergy Anaphylaxis Verified 06/23/18 16:23 nortriptyline HCl Allergy Unknown Verified 06/23/18 16:23 [From Pamelor] omalizumab [From Xolair] Allergy Anaphylaxis Verified 06/23/18 16:23 Penicillins Allergy Rash/Hives Verified 06/23/18 16:23 pregabalin [From Lyrica] Allergy Rash/Hives Verified 06/23/18 16:23 procaine HCl [From Novocain] Allergy Unknown Verified 06/23/18 16:23 shellfish derived Allergy Anaphylaxis Verified 06/23/18 16:23 sulfamethoxazole Allergy Unknown Verified 06/23/18 16:23 [From Septra] tetracycline [Tetracycline] Allergy Rash/Hives Verified 06/23/18 16:23 theophylline anhydrous Allergy Unknown Verified 06/23/18 16:23 [From Joel-Dur] triamcinolone Allergy Anaphylaxis Verified 06/23/18 16:23 trimethoprim [From Septra] Allergy RASH, Verified 06/23/18 16:23 ITCHING vancomycin Allergy ITCHING Verified 06/23/18 16:23 ,HIVES wheat Allergy Rash/Hives Verified 06/23/18 16:23 yellow dye Allergy Anaphylaxis Verified 06/23/18 16:23 erythromycin base AdvReac Rash/Hives Verified 06/23/18 16:23 fentanyl [From Duragesic] AdvReac Unknown Verified 06/23/18 16:23 NSAIDS (Non-Steroidal AdvReac Unknown Verified 06/23/18 16:23 Anti-Inflamma verapamil AdvReac Rash/Hives Verified 06/23/18 16:23 PAPER TAPE Allergy Rash/BLISTE Uncoded 04/27/18 13:31 RS PERSERATIVE IN ALBUTEROL Allergy Dyspnea Uncoded 04/27/18 13:31 INHALER PU steroids Allergy Rash/Hives Uncoded 04/27/18 13:31 WHITE SUTURE Allergy Swelling Uncoded 04/27/18 13:31 Physical Exam Vitals: Vital Signs Temp Pulse Pulse Resp BP BP Pulse Ox 06/24/18 08:29 98.3 F 95 16 146/72 99 06/24/18 04:00 98.1 F 82 18 138/80 94 L 06/24/18 00:00 98.4 F 89 18 152/86 95 06/23/18 20:00 98.8 F 98 18 144/75 93 L 06/23/18 17:53 98.3 F 89 16 162/81 99 06/23/18 16:15 102 H 16 173/78 99 06/23/18 15:52 98 16 171/108 98 06/23/18 15:04 98.1 F 108 H 16 154/112 98 Intake and Output 06/23/18 06/24/18 06/24/18 22:59 06:59 14:59 Intake Total 500 Output Total 500 Balance -500 500 Intake: Intake, IV Titration 500 Amount Sodium Chloride 0.9% 1, 500 000 ml @ 100 mls/hr IV . Q10H [facility] Rx#:[id number] Output: Urine 500 Straight 500 Other: Voiding Method Diaper Diaper Diaper # Voids 3 1 Weight 68.039 kg 45.1 kg GENERAL EXAM: Patient is alert and and doesn't appear to be in any acute distress HEENT: Normocephalic. Normal reaction of pupils, equal size, normal range of extraocular motion. No erythema or exudates in the throat. NECK: No masses, no nuchal rigidity. CHEST: No chest wall deformity. LUNGS: Equal air entry with no crackles or wheeze. HEART: S1 and S2 normal with no audible mumurs or gallops. Regular rhythm, femorals equal on both sides.. ABDOMEN: No hepatosplenomegaly, normal bowel sounds, no guarding or rigidity. SKIN: No rashes CENTRAL NERVOUS SYSTEM: No focal deficits. EXTREMITIES: No cyanosis, clubbing or edema. Results 06/24/18 03:37 06/24/18 03:37 Cardiac Enzymes 06/23/18 06/23/18 06/23/18 Range/Units 15:22 15:22 19:14 AST 42 H (14-36) U/L CK-MB (CK-2) 4.1 H (0.0-2.4) ng/mL Troponin I 0.086 H* 0.101 H* (0.000-0.034) ng/mL 06/24/18 06/24/18 Range/Units 03:37 03:37 AST 26 (14-36) U/L CK-MB (CK-2) (0.0-2.4) ng/mL Troponin I 0.091 H* (0.000-0.034) ng/mL Coagulation 06/23/18 Range/Units 15:22 PT 10.7 (9.0-12.0) sec APTT 18.3 L (22.0-30.0) sec CBC 06/23/18 06/24/18 Range/Units 15:22 03:37 WBC 19.6 H 12.0 H (3.8-10.6) k/uL RBC 5.47 H 4.13 (3.80-5.40) m/uL Hgb 14.5 D 11.0 L D (11.4-16.0) gm/dL Hct 44.8 34.3 (34.0-46.0) % Plt Count 474 H 330 (150-450) k/uL Comprehensive Metabolic Panel 06/23/18 06/24/18 Range/Units 15:22 03:37 Sodium 139 138 (137-145) mmol/L Potassium 3.2 L 3.2 L (3.5-5.1) mmol/L Chloride 91 L 106 (98-107) mmol/L Carbon Dioxide 30 26 (22-30) mmol/L BUN 25 H 23 H (7-17) mg/dL Creatinine 0.82 0.66 (0.52-1.04) mg/dL Glucose 185 H 102 H (74-99) mg/dL Calcium 10.6 H 8.6 (8.4-10.2) mg/dL AST 42 H 26 (14-36) U/L ALT 39 35 (9-52) U/L Alkaline Phosphatase 94 60 (38-126) U/L Total Protein 8.1 5.4 L (6.3-8.2) g/dL Albumin 4.6 2.9 L (3.5-5.0) g/dL Current Medications Generic Name Dose Route Start Last Admin Trade Name Fremike PRN Reason Stop Dose Admin Acetaminophen 650 mg 06/23/18 16:46 Tylenol Tab PO Q6HR PRN Mild Pain or Fever > 100.5 Albuterol Sulfate 2.5 mg 06/23/18 17:23 Ventolin Nebulized INHALATION RT-QID PRN Shortness Of Breath Amlodipine Besylate 2.5 mg 06/24/18 09:00 06/24/18 08:23 Norvasc PO 2.5 mg DAILY [facility] Administration Aspirin 81 mg 06/23/18 21:00 06/23/18 21:28 Aspirin PO 81 mg HS [facility] Administration Carbidopa/Levodopa 1 each 06/23/18 21:00 06/23/18 21:28 Sinemet 25-100 PO 1 each HS [facility]ICE Administration Clopidogrel Bisulfate 75 mg 06/24/18 09:00 06/24/18 08:24 Plavix PO 75 mg DAILY [facility] Administration Duloxetine HCl 60 mg 06/23/18 21:00 06/24/18 08:23 Cymbalta PO 60 mg BID [facility] Administration Fluticasone Propionate 1 spray 06/24/18 09:00 06/24/18 08:24 Flonase Nasal Dos Rios EA NOSTRIL 1 spray DAILY [facility] Administration Daptomycin 500 mg/ Sodium 50 mls @ 100 mls/hr 06/23/18 18:00 06/23/18 21:28 Chloride IVPB 100 mls/hr Q24H [facility] Administration Protocol Aztreonam 2 gm/ Sodium 100 mls @ 100 mls/hr 06/24/18 00:00 06/24/18 08:24 Chloride IVPB 100 mls/hr Q8HR [facility] Administration Protocol Sodium Chloride 1,000 mls @ 100 mls/hr 06/23/18 17:00 06/24/18 05:38 Saline 0.9% IV Not Given .Q10H [facility] Levothyroxine Sodium 88 mcg 06/24/18 06:30 06/24/18 05:40 Synthroid PO 88 mcg DAILY@0630 [facility] Administration Metoprolol Tartrate 50 mg 06/23/18 22:00 06/24/18 08:24 Lopressor PO 50 mg TID [facility] Administration Naloxone HCl 0.2 mg 06/23/18 16:46 Narcan IV Q2M PRN Opioid Reversal Thiamine HCl 100 mg 06/24/18 12:00 06/24/18 08:23 Vitamin B-1 PO 100 mg DAILY@1200 [facility] Administration Valacyclovir HCl 1,000 mg 06/23/18 17:23 Valtrex PO DAILY PRN Cold Sores Intake and Output 06/23/18 06/24/18 06/24/18 22:59 06:59 14:59 Intake Total 500 Output Total 500 Balance -500 500 Intake: Intake, IV Titration 500 Amount Sodium Chloride 0.9% 1, 500 000 ml @ 100 mls/hr IV . Q10H [facility] Rx#:[id number] Output: Urine 500 Straight 500 Other: Voiding Method Diaper Diaper Diaper # Voids 3 1 Weight 68.039 kg 45.1 kg 06/24/18 03:37 06/24/18 03:37 EKG Interpretations (text) Sinus tachycardia with hypertrophic changes Assessment and Plan (1) Troponin level elevated Current Visit: Yes Status: Acute Code(s): R74.8 - ABNORMAL LEVELS OF OTHER SERUM ENZYMES SNOMED Code(s): 255557610 (2) General weakness Current Visit: Yes Status: Acute Code(s): R53.1 - WEAKNESS SNOMED Code(s) : 72310637 (3) Sepsis Current Visit: Yes Status: Acute Code(s): A41.9 - SEPSIS, UNSPECIFIED ORGANISM SNOMED Code(s): 27424064 (4) Infected drug delivery pump Current Visit: No Status: Acute Code(s): T85.79XA - INFECT/INFLM REACTION DUE TO OTH INT PROSTH DEV/GRFT, INIT SNOMED Code(s): 016588678 (5) Transient ischemic attack (TIA) Current Visit: No Status: Acute Code(s): G45.9 - TRANSIENT CEREBRAL ISCHEMIC ATTACK, UNSPECIFIED SNOMED Code(s): 169315033 Plan: We'll continue with current management. We'll obtain echocardiogram. If there are no new segmental wall motion defects, no further cardiac evaluation at this time
--- NOTE | 2018-06-24 12:25 | P.CONS ---
History of Present Illness - Reason for Consult Consult date: 06/24/18 Sepsis, concern for bacteremia - History of Present Illness 68-year-old female who has a extensive past medical history including a history of TIA, fibromyalgia, obesity treated by LAP-BAND with adequate success, and severe back pain. She's undergone multiple procedures in the past for her back pain and several years ago had a spinal cord stimulator placed. She had modestly good control of her pain with this device but eventually broke and was no longer effective. Because of her severe and ongoing back pain she was evaluated and had a trial of a intrathecal pain pump. She had good results and consequently the pain pump was placed with relatively good control of her pain. She has been treated for MRSA bacteremia in March with concern that was related to her pain pump. Bacteremia did clear and infection related to the pain pump was ruled out. Patient has been at prison but currently is living at home and has not been managed well at home and APS has been involved. Daughter and son are seeking co-guardianship and they are looking for AFC near [place] and possibly subacute rehab in the interim. Patient came into [facility] emergency center. Patient presented to [facility] emergency center due to mental status changes. Patient has been afebrile, white count 19.6 and repeat 12, creatinine 0.66, lactic acid initially 3.6 and repeat 0.9 status post 2 L of IV fluids. Albumin 2.9. Troponin 0.086, 0.101 and 0.091. Urinalysis was dark brown, protein 2+, nitrate and leukoesterase negative. Urine drug screen was positive for opiates. Acetaminophen, salicylate level and I'll call level were all negative. Urine culture is in progress and blood culture status received. According to nursing, patient has had decreased appetite, no diarrhea no decubitus ulcers. Patient is pleasantly confused and appears to be at her baseline. Patient did have small emesis well in the room and Zofran ordered. Cardiology is on consult for elevated troponins. Review of Systems ROS unobtainable: due to mental status Past Medical History Past Medical History: Asthma, Cancer, Chest Pain / Angina, CVA/TIA, Fibromyalgia , GERD/Reflux, Hyperlipidemia, Hypertension, Osteoarthritis (OA), Renal Disease , Sleep Apnea/CPAP/BIPAP, Thyroid Disorder Additional Past Medical History / Comment(s): Pt recently admitted to [facility] on 03/26/18 with UTI/sepsis, hyponatremia/SIADH, hypomagnesemia, hypokalemia and bacterial MRSA. Other HX: Frequent falls, bilateral weakness from CVAs and loss of equalibrium-also had bilateral facial droops that resolve, pt states she has had 6 CVAs total, TIAs, L leg bone cancer and entire leg has titanium rods, R knee arthroplasty-pt fell and damaged artificial joint, chronic back pain, carpal tunnel syndrome bilateral elbows/shoulders, DJD, diabetes insipidus, LAUREN with no device since weight loss, CKD stage III, KIANA bilaterally, anemia. History of Any Multi-Drug Resistant Organisms: MRSA Year Discovered:: 03/26/18 MDRO Source:: BLOOD Past Surgical History: Appendectomy, Back Surgery, Bariatric Surgery, Cholecystectomy, Heart Catheterization, Hysterectomy, Joint Replacement, Orthopedic Surgery, Tubal Ligation Additional Past Surgical History / Comment(s): 04/02/18 PICC line for ABX, Lap band with removal, gastric sleeve, L leg titanium rods, R total knee arthroplasty, bilateral wrist carpal tunnel releases, R great toe surgery to remove a growth, lithotripsy, pain stimulator-nonfunctioning, pain clinic procedures, bilateral cataract removals. Past Anesthesia/Blood Transfusion Reactions: Previous Problems w/ Anesthesia Additional Past Anesthesia/Blood Transfusion Reaction / Comm: Slow to wake. Past Psychological History: Anxiety, Depression, Panic Disorder Smoking Status: Never smoker Past Alcohol Use History: None Reported Past Drug Use History: None Reported - Past Family History Father Additional Family Medical History / Comment(s): pt was 7 years old when her father was murdered/ from gsw Mother Family Medical History: CVA/TIA Daughter(s) Family Medical History: Deep Vein Thrombosis (DVT) Additional Family Medical History / Comment(s): dvt Medications and Allergies Home Medications Medication Instructions Recorded Confirmed Type RX: Clopidogrel [Plavix] 75 mg PO DAILY 01/04/14 06/23/18 History RX: DULoxetine HCL [Cymbalta] 60 mg PO BID 01/04/14 06/23/18 History RX: Levothyroxine Sodium 88 mcg PO QAM 01/04/14 06/23/18 History [Synthroid] RX: Aspirin 81 mg PO HS 02/07/14 06/23/18 History RX: valACYclovir HCL [Valtrex] 1,000 mg PO DAILY PRN 02/07/14 06/23/18 History RX: Vitamin B Complex 1 cap PO DAILY 02/21/15 06/23/18 History RX: Biotin 5 mg PO DAILY 04/26/15 06/23/18 History RX: Ascorbic Acid [Vitamin C] 1,000 mg PO DAILY 05/13/16 06/23/18 History RX: Carbidopa-Levodopa 25-100 mg 1 tab PO HS 03/26/18 06/23/18 History [Sinemet 25-100 mg] RX: Cholecalciferol [Vitamin D3] 5,000 unit PO DAILY 03/26/18 06/23/18 History RX: Levalbuterol Hfa Inhaler 2 puff INHALATION RT-Q6H PRN 03/26/18 06/23/18 History [Xopenex Hfa Inhaler] RX: Losartan Potassium 100 mg PO DAILY 03/26/18 06/23/18 History RX: Folic Acid 1 mg PO DAILY@1200 #30 tab 04/02/18 06/23/18 Rx RX: Thiamine [Vitamin B-1] 100 mg PO DAILY@1200 #30 tab 04/02/18 06/23/18 Rx Albuterol Nebulized [Ventolin 2.5 mg INHALATION RT-QID PRN 06/23/18 06/23/18 History Nebulized] Cyanocobalamin (Vitamin B-12) 1,000 mcg PO DAILY 06/23/18 06/23/18 History [Vitamin B-12] Fluticasone Nasal [place] [Flonase 1 spray EA NOSTRIL DAILY 06/23/18 06/23/18 History Nasal [place]] Metoprolol Tartrate [Lopressor] 50 mg PO TID 06/23/18 06/23/18 History amLODIPine [Norvasc] 2.5 mg PO DAILY 06/23/18 06/23/18 History Allergies Allergy/AdvReac Type Severity Reaction Status Date / Time aripiprazole [From Abilify] Allergy Anaphylaxis Verified 06/23/18 16:23 baclofen Allergy Anaphylaxis Verified 06/23/18 16:23 butalbital [From Fioricet] Allergy Rash/Hives Verified 06/23/18 16:23 cefadroxil hydrate Allergy Rash/Hives Verified 06/23/18 16:23 [From Duricef] cefazolin sodium Allergy Anaphylaxis Verified 06/23/18 16:23 [From Kefzol] cephalexin monohydrate Allergy Anaphylaxis Verified 06/23/18 16:23 [From Keflex] ciprofloxacin [From Cipro] Allergy Swelling Verified 06/23/18 16:23 OF THROAT ,RASH AND HIVES ciprofloxacin HCl Allergy Rash/Hives, Verified 06/23/18 16:23 [From Cipro] SWELLING OF THROAT clindamycin HCl Allergy Unknown Verified 06/23/18 16:23 [From Cleocin] clindamycin palmitate HCl Allergy Unknown Verified 06/23/18 16:23 [From Cleocin] clindamycin phosphate Allergy Unknown Verified 06/23/18 16:23 [From Cleocin] dexamethasone [From Decadron] Allergy Anaphylaxis Verified 06/23/18 16:23 dexamethasone sod phosphate Allergy Anaphylaxis Verified 06/23/18 16:23 [From Decadron] ,RASH divalproex sodium Allergy Rash/Hives Verified 06/23/18 16:23 [From Depakote] hydroxyzine HCl [From Atarax] Allergy Unknown Verified 06/23/18 16:23 ibuprofen [From Motrin] Allergy RASH Verified 06/23/18 16:23 ,ITCHING SWELLING OF THROAT influenza virus vaccine, Allergy Anaphylaxis Verified 06/23/18 16:23 specific [Influenza Virus Vacc,Specific] Iodinated Contrast- Oral and Allergy Anaphylaxis Verified 06/23/18 16:23 IV Dye ketorolac tromethamine Allergy Chest Pain Verified 06/23/18 16:23 [From Toradol] lidocaine HCl Allergy Anaphylaxis Verified 06/23/18 16:23 [From Xylocaine] lisinopril Allergy Swelling Verified 06/23/18 16:23 meperidine HCl [From Demerol] Allergy Rash/Hives Verified 06/23/18 16:23 Milk Containing Products Allergy ABDOMINAL Verified 06/23/18 16:23 PAIN NAUSEA AND VOMITING morphine Allergy Vomiting Verified 06/23/18 16:23 Mushroom Allergy Anaphylaxis Verified 06/23/18 16:23 nortriptyline HCl Allergy Unknown Verified 06/23/18 16:23 [From Pamelor] omalizumab [From Xolair] Allergy Anaphylaxis Verified 06/23/18 16:23 Penicillins Allergy Rash/Hives Verified 06/23/18 16:23 pregabalin [From Lyrica] Allergy Rash/Hives Verified 06/23/18 16:23 procaine HCl [From Novocain] Allergy Unknown Verified 06/23/18 16:23 shellfish derived Allergy Anaphylaxis Verified 06/23/18 16:23 sulfamethoxazole Allergy Unknown Verified 06/23/18 16:23 [From ] tetracycline [Tetracycline] Allergy Rash/Hives Verified 06/23/18 16:23 theophylline anhydrous Allergy Unknown Verified 06/23/18 16:23 [From Joel-Dur] triamcinolone Allergy Anaphylaxis Verified 06/23/18 16:23 trimethoprim [From ] Allergy RASH, Verified 06/23/18 16:23 ITCHING vancomycin Allergy ITCHING Verified 06/23/18 16:23 ,HIVES wheat Allergy Rash/Hives Verified 06/23/18 16:23 yellow dye Allergy Anaphylaxis Verified 06/23/18 16:23 erythromycin base AdvReac Rash/Hives Verified 06/23/18 16:23 fentanyl [From Duragesic] AdvReac Unknown Verified 06/23/18 16:23 NSAIDS (Non-Steroidal AdvReac Unknown Verified 06/23/18 16:23 Anti-Inflamma verapamil AdvReac Rash/Hives Verified 06/23/18 16:23 PAPER TAPE Allergy Rash/BLISTE Uncoded 04/27/18 13:31 RS PERSERATIVE IN ALBUTEROL Allergy Dyspnea Uncoded 04/27/18 13:31 INHALER PU steroids Allergy Rash/Hives Uncoded 04/27/18 13:31 WHITE SUTURE Allergy Swelling Uncoded 04/27/18 13:31 Physical Exam Vitals: Vital Signs Temp Pulse Pulse Resp BP BP Pulse Ox 06/24/18 08:29 98.3 F 95 16 146/72 99 06/24/18 04:00 98.1 F 82 18 138/80 94 L 06/24/18 00:00 98.4 F 89 18 152/86 95 06/23/18 20:00 98.8 F 98 18 144/75 93 L 06/23/18 17:53 98.3 F 89 16 162/81 99 06/23/18 16:15 102 H 16 173/78 99 06/23/18 15:52 98 16 171/108 98 06/23/18 15:04 98.1 F 108 H 16 154/112 98 Intake and Output 06/23/18 06/24/18 06/24/18 22:59 06:59 14:59 Intake Total 500 Output Total 500 Balance -500 500 Intake: Intake, IV Titration 500 Amount Sodium Chloride 0.9% 1, 500 000 ml @ 100 mls/hr IV . Q10H [facility] Rx#:[id number] Output: Urine 500 Straight 500 Other: Voiding Method Diaper Diaper Diaper # Voids 3 1 Weight 68.039 kg 45.1 kg GEN: 68-year-old woman in bed and appears to be comfortable. Patient had small emesis during exam. HEENT: Anicteric conjunctiva are pink and moist nasal mucosa grossly intact without significant lesions, there is no thrush. Neck: The neck is supple without significant lymphadenopathy or thyromegaly. Lungs: Good bilateral air entry without significant crackles or wheezing. There is no significant bronchial sounds. Heart: Regular rate and rhythm with an audible S1-S2, no S3 no S4. There is no significant murmur click or rub, PMI was nondisplaced. Abdomen: Positive bowel sounds, soft and nontender without palpable masses or organomegaly. There was no guarding or rebound. There is no tenderness at the site of her pain pump in the left abdomen ordered around to the left flank. No redness. Extremities: The upper extremities have excellent pulses they are symmetric. No pedal edema. Dorsalis pedis +2 bilaterally. Neuro: Awake alert oriented to person. There are no acute gross focal sensory motor deficits. Patient is able to follow commands. Results Results: Laboratory Results WBC 12.0 k/uL (3.8-10.6) H 06/24/18 03:37 RBC 4.13 m/uL (3.80-5.40) 06/24/18 03:37 Hgb 11.0 gm/dL (11.4-16.0) L D 06/24/18 03:37 Hct 34.3 % (34.0-46.0) 06/24/18 03:37 MCV 83.2 fL (80.0-100.0) 06/24/18 03:37 MCH 26.7 pg (25.0-35.0) 06/24/18 03:37 MCHC 32.1 g/dL (31.0-37.0) 06/24/18 03:37 RDW 13.8 % (11.5-15.5) 06/24/18 03:37 Plt Count 330 k/uL (150-450) 06/24/18 03:37 Neutrophils % 79 % 06/24/18 03:37 Lymphocytes % 16 % 06/24/18 03:37 Monocytes % 3 % 06/24/18 03:37 Eosinophils % 1 % 06/24/18 03:37 Basophils % 0 % 06/24/18 03:37 Neutrophils # 9.6 k/uL (1.3-7.7) H 06/24/18 03:37 Lymphocytes # 1.9 k/uL (1.0-4.8) 06/24/18 03:37 Monocytes # 0.4 k/uL (0-1.0) 06/24/18 03:37 Eosinophils # 0.1 k/uL (0-0.7) 06/24/18 03:37 Basophils # 0.0 k/uL (0-0.2) 06/24/18 03:37 PT 10.7 sec (9.0-12.0) 06/23/18 15:22 INR 1.0 (<1.2) 06/23/18 15:22 APTT 18.3 sec (22.0-30.0) L 06/23/18 15:22 Sodium 138 mmol/L (137-145) 06/24/18 03:37 Potassium 3.2 mmol/L (3.5-5.1) L 06/24/18 03:37 Chloride 106 mmol/L (98-107) 06/24/18 03:37 Carbon Dioxide 26 mmol/L (22-30) 06/24/18 03:37 Anion Gap 6 mmol/L 06/24/18 03:37 BUN 23 mg/dL (7-17) H 06/24/18 03:37 Creatinine 0.66 mg/dL (0.52-1.04) 06/24/18 03:37 Est GFR (CKD-EPI)AfAm >90 (>60 ml/min/1.73 sqM) 06/24/18 03:37 Est GFR (CKD-EPI)NonAf 90 (>60 ml/min/1.73 sqM) 06/24/18 03:37 Glucose 102 mg/dL (74-99) H 06/24/18 03:37 POC Glucose (mg/dL) 175 mg/dL (75-99) H 06/23/18 15:55 POC Glu Harmonica Maker ID Mariela Neri 06/23/18 15:55 Lactic Ac Sepsis Rflx Y 06/23/18 16:05 Plasma Lactic Acid Anjel 0.9 mmol/L (0.7-2.0) 06/24/18 03:37 Calcium 8.6 mg/dL (8.4-10.2) 06/24/18 03:37 Total Bilirubin 0.7 mg/dL (0.2-1.3) 06/24/18 03:37 AST 26 U/L (14-36) 06/24/18 03:37 ALT 35 U/L (9-52) 06/24/18 03:37 Alkaline Phosphatase 60 U/L (38-126) 06/24/18 03:37 Total Creatine Kinase 127 U/L (30-135) 06/23/18 15:22 CK-MB (CK-2) 4.1 ng/mL (0.0-2.4) H 06/23/18 15:22 CK-MB (CK-2) Rel Index 3.2 06/23/18 15:22 Troponin I 0.091 ng/mL (0.000-0.034) H* 06/24/18 03:37 Total Protein 5.4 g/dL (6.3-8.2) L 06/24/18 03:37 Albumin 2.9 g/dL (3.5-5.0) L 06/24/18 03:37 Urine Color Dark Brown 06/23/18 15:45 Urine Appearance Clear (Clear) 06/23/18 15:45 Urine pH 6.0 (5.0-8.0) 06/23/18 15:45 Ur Specific [place] 1.021 (1.001-1.035) 06/23/18 15:45 Urine Protein 2+ (Negative) H 06/23/18 15:45 Urine Glucose (UA) Negative (Negative) 06/23/18 15:45 Urine Ketones Negative (Negative) 06/23/18 15:45 Urine Blood Negative (Negative) 06/23/18 15:45 Urine Nitrite Negative (Negative) 06/23/18 15:45 Urine Bilirubin Negative (Negative) 06/23/18 15:45 Urine Urobilinogen 2.0 mg/dL (<2.0) 06/23/18 15:45 Ur Leukocyte Esterase Negative (Negative) 06/23/18 15:45 Urine WBC <1 /hpf (0-5) 06/23/18 15:45 Salicylates <1.0 mg/dL 06/23/18 15:22 Urine Opiates Screen Detected (NotDetected) H 06/23/18 15:45 Ur Oxycodone Screen Not Detected (NotDetected) 06/23/18 15:45 Urine Methadone Screen Not Detected (NotDetected) 06/23/18 15:45 Ur Propoxyphene Screen Not Detected (NotDetected) 06/23/18 15:45 Acetaminophen <10.0 ug/mL 06/23/18 15:22 Ur Barbiturates Screen Not Detected (NotDetected) 06/23/18 15:45 U Tricyclic Antidepress Not Detected (NotDetected) 06/23/18 15:45 Ur Phencyclidine Scrn Not Detected (NotDetected) 06/23/18 15:45 Ur Amphetamines Screen Not Detected (NotDetected) 06/23/18 15:45 U Methamphetamines Scrn Not Detected (NotDetected) 06/23/18 15:45 U Benzodiazepines Scrn Not Detected (NotDetected) 06/23/18 15:45 Urine Cocaine Screen Not Detected (NotDetected) 06/23/18 15:45 U Marijuana (THC) Screen Not Detected (NotDetected) 06/23/18 15:45 Serum Alcohol <10 mg/dL 06/23/18 15:22 CBC & Chem 7: 06/24/18 03:37 06/24/18 03:37 Labs: Abnormal Lab Results - Last 24 Hours (Table) 06/23/18 06/23/18 06/23/18 Range/Units 15:22 15:22 15:22 WBC 19.6 H (3.8-10.6) k/uL RBC 5.47 H (3.80-5.40) m/uL Hgb (11.4-16.0) gm/dL Plt Count 474 H (150-450) k/uL Neutrophils # 17.3 H (1.3-7.7) k/uL APTT (22.0-30.0) sec Potassium 3.2 L (3.5-5.1) mmol/L Chloride 91 L (98-107) mmol/L BUN 25 H (7-17) mg/dL Glucose 185 H (74-99) mg/dL POC Glucose (mg/dL) (75-99) mg/dL Plasma Lactic Acid Anjel (0.7-2.0) mmol/L Calcium 10.6 H (8.4-10.2) mg/dL AST 42 H (14-36) U/L CK-MB (CK-2) 4.1 H (0.0-2.4) ng/mL Troponin I 0.086 H* (0.000-0.034) ng/mL Total Protein (6.3-8.2) g/dL Albumin (3.5-5.0) g/dL Urine Protein (Negative) Urine Opiates Screen (NotDetected) 06/23/18 06/23/18 06/23/18 Range/Units 15:22 15:22 15:45 WBC (3.8-10.6) k/uL RBC (3.80-5.40) m/uL Hgb (11.4-16.0) gm/dL Plt Count (150-450) k/uL Neutrophils # (1.3-7.7) k/uL APTT 18.3 L (22.0-30.0) sec Potassium (3.5-5.1) mmol/L Chloride (98-107) mmol/L BUN (7-17) mg/dL Glucose (74-99) mg/dL POC Glucose (mg/dL) (75-99) mg/dL Plasma Lactic Acid Anjel 3.6 H* (0.7-2.0) mmol/L Calcium (8.4-10.2) mg/dL AST (14-36) U/L CK-MB (CK-2) (0.0-2.4) ng/mL Troponin I (0.000-0.034) ng/mL Total Protein (6.3-8.2) g/dL Albumin (3.5-5.0) g/dL Urine Protein 2+ H (Negative) Urine Opiates Screen Detected H (NotDetected) 06/23/18 06/23/18 06/24/18 Range/Units 15:55 19:14 03:37 WBC 12.0 H (3.8-10.6) k/uL RBC (3.80-5.40) m/uL Hgb 11.0 L D (11.4-16.0) gm/dL Plt Count (150-450) k/uL Neutrophils # 9.6 H (1.3-7.7) k/uL APTT (22.0-30.0) sec Potassium (3.5-5.1) mmol/L Chloride (98-107) mmol/L BUN (7-17) mg/dL Glucose (74-99) mg/dL POC Glucose (mg/dL) 175 H (75-99) mg/dL Plasma Lactic Acid Anjel (0.7-2.0) mmol/L Calcium (8.4-10.2) mg/dL AST (14-36) U/L CK-MB (CK-2) (0.0-2.4) ng/mL Troponin I 0.101 H* (0.000-0.034) ng/mL Total Protein (6.3-8.2) g/dL Albumin (3.5-5.0) g/dL Urine Protein (Negative) Urine Opiates Screen (NotDetected) 06/24/18 06/24/18 Range/Units 03:37 03:37 WBC (3.8-10.6) k/uL RBC (3.80-5.40) m/uL Hgb (11.4-16.0) gm/dL Plt Count (150-450) k/uL Neutrophils # (1.3-7.7) k/uL APTT (22.0-30.0) sec Potassium 3.2 L (3.5-5.1) mmol/L Chloride (98-107) mmol/L BUN 23 H (7-17) mg/dL Glucose 102 H (74-99) mg/dL POC Glucose (mg/dL) (75-99) mg/dL Plasma Lactic Acid Anjel (0.7-2.0) mmol/L Calcium (8.4-10.2) mg/dL AST (14-36) U/L CK-MB (CK-2) (0.0-2.4) ng/mL Troponin I 0.091 H* (0.000-0.034) ng/mL Total Protein 5.4 L (6.3-8.2) g/dL Albumin 2.9 L (3.5-5.0) g/dL Urine Protein (Negative) Urine Opiates Screen (NotDetected) Microbiology - Last 24 Hours (Table) 06/23/18 15:45 Urine Culture - Preliminary Urine,Catheterized Assessment and Plan Plan: This is a 68-year-old female who presented to the hospital with mental status changes and leukocytosis with lactic acidosis. Patient is currently on daptomycin and Azactam based on previous cultures. She has been treated in the past for MRSA bacteremia. Urine appears benign, blood culture is status received. Continue supportive care. Further medications as patient progresses. The above dictated assessment and findings were discussed with Dr. Krishna. The impression and plan of care have been directed as dictated. Priya Pantoja nurse practitioner acting as scribe for Dr. Krishna.
--- NOTE | 2018-06-24 12:33 | P.PN ---
Subjective 68-year-old admitted with altered mental status patient is completely confused at this time. Patient is on daptomycin and azotemia on exam because of lactic acidosis and possibility of sepsis patient was admitted multiple times in the past with MRSA bacteremia which was believed to be secondary to the pain pump. Pain pump may be contributing to his her confusion as well. I'll consult neurology. Patient was started on Seroquel as needed for agitation episodes. Unable to obtain any review of system due to the clinical condition Objective - Vital Signs Vital signs: Vital Signs Temp 97.8 F 06/24/18 12:08 Pulse 95 06/24/18 08:29 Resp 18 06/24/18 12:08 BP 170/85 06/24/18 12:08 Pulse Ox 99 06/24/18 12:08 Intake & Output 06/23/18 06/24/18 06/24/18 18:59 06:59 18:59 Intake Total 500 Output Total 500 Balance -500 500 Weight 68.039 kg 45.1 kg Intake: Intake, IV Titration 500 Amount Sodium Chloride 0.9% 1, 500 000 ml @ 100 mls/hr IV . Q10H [facility] Rx#:[id number] Output: Urine 500 Straight 500 Other: Voiding Method Diaper Diaper # Voids 3 1 - Exam PHYSICAL EXAMINATION: GENERAL: The patient is alert and oriented x0-1 appears to be bit lethargic bedbound HEENT: Pupils are round and equally reacting to light. EOMI. No scleral icterus. No conjunctival pallor. Normocephalic, atraumatic. No pharyngeal erythema. No thyromegaly. CARDIOVASCULAR: S1 and S2 present. No murmurs, rubs, or gallops. PULMONARY: Chest is clear to auscultation, no wheezing or crackles. ABDOMEN: Soft, nontender, nondistended, normoactive bowel sounds. No palpable organomegaly. MUSCULOSKELETAL: No joint swelling or deformity. EXTREMITIES: No cyanosis, clubbing, or pedal edema. NEUROLOGICAL: Unable to assess SKIN: No rashes. - Labs CBC & Chem 7: 06/24/18 03:37 06/24/18 03:37 Labs: Abnormal Lab Results - Last 24 Hours (Table) 06/23/18 06/23/18 06/23/18 Range/Units 15:22 15:22 15:22 WBC 19.6 H (3.8-10.6) k/uL RBC 5.47 H (3.80-5.40) m/uL Hgb (11.4-16.0) gm/dL Plt Count 474 H (150-450) k/uL Neutrophils # 17.3 H (1.3-7.7) k/uL APTT (22.0-30.0) sec Potassium 3.2 L (3.5-5.1) mmol/L Chloride 91 L (98-107) mmol/L BUN 25 H (7-17) mg/dL Glucose 185 H (74-99) mg/dL POC Glucose (mg/dL) (75-99) mg/dL Plasma Lactic Acid Anjel (0.7-2.0) mmol/L Calcium 10.6 H (8.4-10.2) mg/dL AST 42 H (14-36) U/L CK-MB (CK-2) 4.1 H (0.0-2.4) ng/mL Troponin I 0.086 H* (0.000-0.034) ng/mL Total Protein (6.3-8.2) g/dL Albumin (3.5-5.0) g/dL Urine Protein (Negative) Urine Opiates Screen (NotDetected) 06/23/18 06/23/18 06/23/18 Range/Units 15:22 15:22 15:45 WBC (3.8-10.6) k/uL RBC (3.80-5.40) m/uL Hgb (11.4-16.0) gm/dL Plt Count (150-450) k/uL Neutrophils # (1.3-7.7) k/uL APTT 18.3 L (22.0-30.0) sec Potassium (3.5-5.1) mmol/L Chloride (98-107) mmol/L BUN (7-17) mg/dL Glucose (74-99) mg/dL POC Glucose (mg/dL) (75-99) mg/dL Plasma Lactic Acid Anjel 3.6 H* (0.7-2.0) mmol/L Calcium (8.4-10.2) mg/dL AST (14-36) U/L CK-MB (CK-2) (0.0-2.4) ng/mL Troponin I (0.000-0.034) ng/mL Total Protein (6.3-8.2) g/dL Albumin (3.5-5.0) g/dL Urine Protein 2+ H (Negative) Urine Opiates Screen Detected H (NotDetected) 06/23/18 06/23/18 06/24/18 Range/Units 15:55 19:14 03:37 WBC 12.0 H (3.8-10.6) k/uL RBC (3.80-5.40) m/uL Hgb 11.0 L D (11.4-16.0) gm/dL Plt Count (150-450) k/uL Neutrophils # 9.6 H (1.3-7.7) k/uL APTT (22.0-30.0) sec Potassium (3.5-5.1) mmol/L Chloride (98-107) mmol/L BUN (7-17) mg/dL Glucose (74-99) mg/dL POC Glucose (mg/dL) 175 H (75-99) mg/dL Plasma Lactic Acid Anjel (0.7-2.0) mmol/L Calcium (8.4-10.2) mg/dL AST (14-36) U/L CK-MB (CK-2) (0.0-2.4) ng/mL Troponin I 0.101 H* (0.000-0.034) ng/mL Total Protein (6.3-8.2) g/dL Albumin (3.5-5.0) g/dL Urine Protein (Negative) Urine Opiates Screen (NotDetected) 18 06/24/18 Range/Units 03:37 03:37 WBC (3.8-10.6) k/uL RBC (3.80-5.40) m/uL Hgb (11.4-16.0) gm/dL Plt Count (150-450) k/uL Neutrophils # (1.3-7.7) k/uL APTT (22.0-30.0) sec Potassium 3.2 L (3.5-5.1) mmol/L Chloride (98-107) mmol/L BUN 23 H (7-17) mg/dL Glucose 102 H (74-99) mg/dL POC Glucose (mg/dL) (75-99) mg/dL Plasma Lactic Acid Anjel (0.7-2.0) mmol/L Calcium (8.4-10.2) mg/dL AST (14-36) U/L CK-MB (CK-2) (0.0-2.4) ng/mL Troponin I 0.091 H* (0.000-0.034) ng/mL Total Protein 5.4 L (6.3-8.2) g/dL Albumin 2.9 L (3.5-5.0) g/dL Urine Protein (Negative) Urine Opiates Screen (NotDetected) Microbiology - Last 24 Hours (Table) 06/23/18 15:45 Urine Culture - Preliminary Urine,Catheterized Assessment and Plan Plan: -Possible sepsis: IV fluids as mentioned above repeat lactic acid again antibiotics daptomycin and aztreonam, awaiting infectious disease recommendations. Source is not clear definitely infected pain pump is a consideration like last time. -Lactic acidosis possibly secondary to sepsis IV fluids as mentioned above repeat lactic acid within normal limits -Toxic encephalopathy: Probably secondary to sepsis. Because of worsening encephalopathy neurology will be consulted. -Mildly elevated troponin secondary to possible sepsis as mentioned above, cardiology evaluated the patient no further intervention from that perspective patient will transfer to subacute care -Fibromyalgia chronic pain syndrome for which patient has a pain pump in place -Hyperlipidemia -Obstructive sleep apnea for which patient has CPAP machine at home Hypothyroidism -History of bariatric surgery -History of diabetes insipidus with the chronic hyponatremia which is not an issue now. CODE STATUS at to find out from the rehabilitation facility
[2018-06-24 13:31] VITALS: BMI 18.8
[2018-06-24] MEDS ORDERED: amLODIPine 2.5 MG TAB PO SCH (17:15)
--- NOTE | 2018-06-24 20:13 | P.CNNES ---
History of Present Illness Consult date: 06/24/18 History of Present Illness: The patient is a 68-year-old handed white female who presents from home with altered mental status for 2 weeks. Patient's son and [id number] are at bedside. Port for the last 2 months the patient has been having difficulty at home with episodes of confusion and Adult Protective Services have been involved. The patient's son and daughter seeking guardianship. The patient was recently hospitalized March with MRSA bacteremia and treated. She presents to the hospital with leukocytosis lactic acidosis and altered mental status. The patient is unreliable historian. Patient apparently lives alone in an apartment. He has not been eating or drinking properly for the past few weeks. [facility] Protective Services was called out to investigate in April. She is [id number] states that the patient has been hospitalized 7 times since December. One of those hospitalizations was in [place] . The patient's the patient states she has chronic back pain. She is able to follow simple commands but most commands have to be repeated a few times before she is able to grasp. [id number] states that that patient has been hospitalized at this hospital at least 6 times this year. Looking at the record however it appears that she has been hospitalized twice including this time.. Review of Systems ROS unobtainable: due to mental status Past Medical History Past Medical History: Asthma, Cancer, Chest Pain / Angina, CVA/TIA, Fibromyalgia , GERD/Reflux, Hyperlipidemia, Hypertension, Osteoarthritis (OA), Renal Disease , Sleep Apnea/CPAP/BIPAP, Thyroid Disorder Additional Past Medical History / Comment(s): Pt recently admitted to [facility] on 03/26/18 with UTI/sepsis, hyponatremia/SIADH, hypomagnesemia, hypokalemia and bacterial MRSA. Other HX: Frequent falls, bilateral weakness from CVAs and loss of equalibrium-also had bilateral facial droops that resolve, pt states she has had 6 CVAs total, TIAs, L leg bone cancer and entire leg has titanium rods, R knee arthroplasty-pt fell and damaged artificial joint, chronic back pain, carpal tunnel syndrome bilateral elbows/shoulders, DJD, diabetes insipidus, LAUREN with no device since weight loss, CKD stage III, [place] bilaterally, anemia. History of Any Multi-Drug Resistant Organisms: MRSA Date of last positivie culture/infection: 03/26/18 MDRO Source:: BLOOD Past Surgical History: Appendectomy, Back Surgery, Bariatric Surgery, Cholecystectomy, Heart Catheterization, Hysterectomy, Joint Replacement, Orthopedic Surgery, Tubal Ligation Additional Past Surgical History / Comment(s): 04/02/18 PICC line for ABX, Lap band with removal, gastric sleeve, L leg titanium rods, R total knee arthroplasty, bilateral wrist carpal tunnel releases, R great toe surgery to remove a growth, lithotripsy, pain stimulator-nonfunctioning, pain clinic procedures, bilateral cataract removals. Past Anesthesia/Blood Transfusion Reactions: Previous Problems w/ Anesthesia Additional Past Anesthesia/Blood Transfusion Reaction / Comment(s): Slow to wake. Past Psychological History: Anxiety, Depression, Panic Disorder Smoking Status: Never smoker Past Alcohol Use History: None Reported Past Drug Use History: None Reported - Past Family History Father Additional Family Medical History / Comment(s): pt was 7 years old when her father was murdered/ from gsw Mother Family Medical History: CVA/TIA Daughter(s) Family Medical History: Deep Vein Thrombosis (DVT) Additional Family Medical History / Comment(s): dvt Medications and Allergies Home Medications Medication Instructions Recorded Confirmed Type Clopidogrel [Plavix] 75 mg PO DAILY 01/04/14 06/23/18 History DULoxetine HCL [Cymbalta] 60 mg PO BID 01/04/14 06/23/18 History Levothyroxine Sodium [Synthroid] 88 mcg PO QAM 01/04/14 06/23/18 History Aspirin 81 mg PO HS 02/07/14 06/23/18 History valACYclovir HCL [Valtrex] 1,000 mg PO DAILY PRN 02/07/14 06/23/18 History Vitamin B Complex 1 cap PO DAILY 02/21/15 06/23/18 History Biotin 5 mg PO DAILY 04/26/15 06/23/18 History Ascorbic Acid [Vitamin C] 1,000 mg PO DAILY 05/13/16 06/23/18 History Carbidopa-Levodopa 25-100 mg 1 tab PO HS 03/26/18 06/23/18 History [Sinemet 25-100 mg] Cholecalciferol [Vitamin D3] 5,000 unit PO DAILY 03/26/18 06/23/18 History Levalbuterol Hfa Inhaler [Xopenex 2 puff INHALATION RT-Q6H PRN 03/26/18 History Hfa Inhaler] Losartan Potassium 100 mg PO DAILY 03/26/18 06/23/18 History Folic Acid 1 mg PO DAILY@1200 #30 tab 04/02/18 06/23/18 Rx Thiamine [Vitamin B-1] 100 mg PO DAILY@1200 #30 tab 04/02/18 06/23/18 Rx Albuterol Nebulized [Ventolin 2.5 mg INHALATION RT-QID PRN 06/23/18 06/23/18 History Nebulized] Cyanocobalamin (Vitamin B-12) 1,000 mcg PO DAILY 06/23/18 06/23/18 History [Vitamin B-12] Fluticasone Nasal [place] [Flonase 1 spray EA NOSTRIL DAILY 06/23/18 06/23/18 History Nasal [place]] Metoprolol Tartrate [Lopressor] 50 mg PO TID 06/23/18 06/23/18 History amLODIPine [Norvasc] 2.5 mg PO DAILY 06/23/18 06/23/18 History Allergies Allergy/AdvReac Type Severity Reaction Status Date / Time aripiprazole [From Abilify] Allergy Anaphylaxis Verified 06/23/18 16:23 baclofen Allergy Anaphylaxis Verified 06/23/18 16:23 butalbital [From Fioricet] Allergy Rash/Hives Verified 06/23/18 16:23 cefadroxil hydrate Allergy Rash/Hives Verified 06/23/18 16:23 [From Duricef] cefazolin sodium Allergy Anaphylaxis Verified 06/23/18 16:23 [From Kefzol] cephalexin monohydrate Allergy Anaphylaxis Verified 06/23/18 16:23 [From Keflex] ciprofloxacin [From Cipro] Allergy Swelling Verified 06/23/18 16:23 OF THROAT ,RASH AND HIVES ciprofloxacin HCl Allergy Rash/Hives, Verified 06/23/18 16:23 [From Cipro] SWELLING OF THROAT clindamycin HCl Allergy Unknown Verified 06/23/18 16:23 [From Cleocin] clindamycin palmitate HCl Allergy Unknown Verified 06/23/18 16:23 [From Cleocin] clindamycin phosphate Allergy Unknown Verified 06/23/18 16:23 [From Cleocin] dexamethasone [From Decadron] Allergy Anaphylaxis Verified 06/23/18 16:23 dexamethasone sod phosphate Allergy Anaphylaxis Verified 06/23/18 16:23 [From Decadron] ,RASH divalproex sodium Allergy Rash/Hives Verified 06/23/18 16:23 [From Depakote] hydroxyzine HCl [From Atarax] Allergy Unknown Verified 06/23/18 16:23 ibuprofen [From Motrin] Allergy RASH Verified 06/23/18 16:23 ,ITCHING SWELLING OF THROAT influenza virus vaccine, Allergy Anaphylaxis Verified 06/23/18 16:23 specific [Influenza Virus Vacc,Specific] Iodinated Contrast- Oral and Allergy Anaphylaxis Verified 06/23/18 16:23 IV Dye ketorolac tromethamine Allergy Chest Pain Verified 06/23/18 16:23 [From Toradol] lidocaine HCl Allergy Anaphylaxis Verified 06/23/18 16:23 [From Xylocaine] lisinopril Allergy Swelling Verified 06/23/18 16:23 meperidine HCl [From Demerol] Allergy Rash/Hives Verified 06/23/18 16:23 Milk Containing Products Allergy ABDOMINAL Verified 06/23/18 16:23 PAIN NAUSEA AND VOMITING morphine Allergy Vomiting Verified 06/23/18 16:23 Mushroom Allergy Anaphylaxis Verified 06/23/18 16:23 nortriptyline HCl Allergy Unknown Verified 06/23/18 16:23 [From Pamelor] omalizumab [From Xolair] Allergy Anaphylaxis Verified 06/23/18 16:23 Penicillins Allergy Rash/Hives Verified 06/23/18 16:23 pregabalin [From Lyrica] Allergy Rash/Hives Verified 06/23/18 16:23 procaine HCl [From Novocain] Allergy Unknown Verified 06/23/18 16:23 shellfish derived Allergy Anaphylaxis Verified 06/23/18 16:23 sulfamethoxazole Allergy Unknown Verified 06/23/18 16:23 [From Septra] tetracycline [Tetracycline] Allergy Rash/Hives Verified 06/23/18 16:23 theophylline anhydrous Allergy Unknown Verified 06/23/18 16:23 [From Joel-Dur] triamcinolone Allergy Anaphylaxis Verified 06/23/18 16:23 trimethoprim [From Septra] Allergy RASH, Verified 06/23/18 16:23 ITCHING vancomycin Allergy ITCHING Verified 06/23/18 16:23 ,HIVES wheat Allergy Rash/Hives Verified 06/23/18 16:23 yellow dye Allergy Anaphylaxis Verified 06/23/18 16:23 erythromycin base AdvReac Rash/Hives Verified 06/23/18 16:23 fentanyl [From Duragesic] AdvReac Unknown Verified 06/23/18 16:23 NSAIDS (Non-Steroidal AdvReac Unknown Verified 06/23/18 16:23 Anti-Inflamma verapamil AdvReac Rash/Hives Verified 06/23/18 16:23 PAPER TAPE Allergy Rash/BLISTE Uncoded 04/27/18 13:31 RS PERSERATIVE IN ALBUTEROL Allergy Dyspnea Uncoded 04/27/18 13:31 INHALER PU steroids Allergy Rash/Hives Uncoded 04/27/18 13:31 WHITE SUTURE Allergy Swelling Uncoded 04/27/18 13:31 Physical Examination - Vital Signs Vital Signs: Vital Signs Temp Pulse Resp BP Pulse Ox 06/24/18 16:00 97.7 F 87 16 188/91 96 06/24/18 12:08 97.8 F 16 170/85 99 06/24/18 08:29 98.3 F 95 16 146/72 99 06/24/18 04:00 98.1 F 82 18 138/80 94 L 06/24/18 00:00 98.4 F 89 18 152/86 95 06/23/18 20:00 98.8 F 98 18 144/75 93 L Intake and Output 06/24/18 06/24/18 06/24/18 06:59 14:59 22:59 Intake Total 500 Balance 500 Intake: Intake, IV Titration 500 Amount Sodium Chloride 0.9% 1, 500 000 ml @ 100 mls/hr IV . Q10H [facility] Rx#:[id number] Other: Voiding Method Diaper Diaper Diaper # Voids 3 1 1 # Bowel Movements 1 Weight 45.1 kg 45.1 kg - Constitutional General appearance: cooperative - EENT EENT: PERRL - Respiratory Respiratory: lungs clear - Cardiovascular Cardiovascular: regular rate, normal S1 - Neurologic Neurologic examination: Mental status: She was awake alert and oriented to person. She was able to identify and name her son and [id number] were in the room, (Kae and Lizeth ) and she was able to do 7+7 = 14 but had difficulty with other calculations. She was able to spell world. She had difficulty focusing Cranial nerve examination: Pupils 2 mm equal and reactive, no facial asymmetry, able to count fingers. Motor examination: Able to move all 4 extremities equally Deep tendon reflexes: 1+ and symmetric Gait: Could not be tested Results - Laboratory Findings CBC and BMP: 06/24/18 03:37 06/24/18 03:37 Abnormal Lab Findings: Abnormal Labs 06/23/18 06/23/18 06/23/18 15:22 15:22 15:22 WBC 19.6 H RBC 5.47 H Hgb Plt Count 474 H Neutrophils # 17.3 H APTT Potassium 3.2 L Chloride 91 L BUN 25 H Glucose 185 H POC Glucose (mg/dL) Plasma Lactic Acid Anjel Calcium 10.6 H AST 42 H CK-MB (CK-2) 4.1 H Troponin I 0.086 H* Total Protein Albumin Urine Protein Urine Opiates Screen 06/23/18 06/23/18 06/23/18 15:22 15:22 15:45 WBC RBC Hgb Plt Count Neutrophils # APTT 18.3 L Potassium Chloride BUN Glucose POC Glucose (mg/dL) Plasma Lactic Acid Anjel 3.6 H* Calcium AST CK-MB (CK-2) Troponin I Total Protein Albumin Urine Protein 2+ H Urine Opiates Screen Detected H 06/23/18 06/23/18 06/24/18 15:55 19:14 03:37 WBC 12.0 H RBC Hgb 11.0 L D Plt Count Neutrophils # 9.6 H APTT Potassium Chloride BUN Glucose POC Glucose (mg/dL) 175 H Plasma Lactic Acid Anjel Calcium AST CK-MB (CK-2) Troponin I 0.101 H* Total Protein Albumin Urine Protein Urine Opiates Screen 06/24/18 06/24/18 03:37 03:37 WBC RBC Hgb Plt Count Neutrophils # APTT Potassium 3.2 L Chloride BUN 23 H Glucose 102 H POC Glucose (mg/dL) Plasma Lactic Acid Anjel Calcium AST CK-MB (CK-2) Troponin I 0.091 H* Total Protein 5.4 L Albumin 2.9 L Urine Protein Urine Opiates Screen Assessment and Plan (1) Altered mental status Current Visit: Yes Status: Acute SNOMED Code(s): 611309661 (2) Sepsis Current Visit: Yes Status: Acute SNOMED Code(s): 61902727 (3) Troponin level elevated Current Visit: Yes Status: Acute Code(s): R74.8 - ABNORMAL LEVELS OF OTHER SERUM ENZYMES SNOMED Code(s): 299889256 Plan: The patient is a 68-year-old woman with history of change in mental status and behavior over the last 2 weeks. She lives alone in an apartment. Adult protective services have been contacted in April. Patient has been staying alone in the apartment and 2 weeks ago noted to have reduced eating and unable to perform her routine activities.. The patient is very confused and unable to give much history. History is obtained from the patient's son and daughter-in- law. She has had a CT of the brain which showed small vessel ischemia and atrophy. She does not have any focal neurologic deficits. Her encephalopathy is likely secondary to underlying sepsis. Will check EEG. Also thyroid and B12 screening
[2018-06-24] MEDS: DAPTOmycin 500 MG in SODIUM CHLORIDE 0.9% 50 ML IVPB SCH (20:20)
[2018-06-24] MEDS: ASPIRIN 81 MG PO SCH (20:21)
[2018-06-24] MEDS: CARBIDOPA-LEVODOPA 25-100 MG 1 EACH TAB PO SCH (20:21)
[2018-06-24] MEDS ORDERED: hydrALAZINE HCL 25 MG TAB PO STA (21:33)
--- NOTE | 2018-06-24 22:33 | P.CON ---
Consult Note - . Consult date: 06/24/18 Assessment/Plan:: 68-year-old female who has a extensive past medical history including a history of TIA, fibromyalgia, obesity treated by [facility] with adequate success, and severe back pain. She's undergone multiple procedures in the past for her back pain and several years ago had a spinal cord stimulator placed. She had modestly good control of her pain with this device but eventually broke and was no longer effective. Because of her severe and ongoing back pain she was evaluated and had a trial of a intrathecal pain pump. She had good results and consequently the pain pump was placed with relatively good control of her pain. She has been treated for MRSA bacteremia in March with concern that was related to her pain pump. Bacteremia did clear and infection related to the pain pump was ruled out. Patient has been at jail but currently is living at home and has not been managed well at home and APS has been involved. Daughter and son are seeking co-guardianship and they are looking for AFC near [place] and possibly subacute rehab in the interim. Patient came into [facility] emergency center. Patient presented to [facility] emergency center due to mental status changes. Patient has been afebrile, white count 19.6 and repeat 12, creatinine 0.66, lactic acid initially 3.6 and repeat 0.9 status post 2 L of IV fluids. Albumin 2.9. Troponin 0.086, 0.101 and 0.091. Urinalysis was dark brown, protein 2+, nitrate and leukoesterase negative. Urine drug screen was positive for opiates. Acetaminophen, salicylate level and I'll call level were all negative. Urine culture is in progress and blood culture status received. According to nursing, patient has had decreased appetite, no diarrhea no decubitus ulcers. Patient is pleasantly confused and appears to be at her baseline. Patient did have small emesis well in the room and Zofran ordered. Cardiology is on consult for elevated troponins. Please see the consult note is dictated by nurse practitioner Priya Saraviadeonna At this time this pleasant woman is more confused than some of the visits. Urine culture is currently negative but the significant concerns to history of MRSA as well as of E. coli in her urine. At this time monitor her blood culture closely is noted in the past if she has any recurrence MRSA in her blood with her work with the neurologist to remove her implantable pain pump. With the markedly elevated white blood cell count at admission and her encephalopathy concerns underlying sepsis and will continue current antibiotic therapy with daptomycin and Azactam pending blood culture results and evaluation of her neurological status. Fortunately he doesn't seem to have a trend to improve her leukocytosis. Troponins are normal being followed by cardiology. I with evaluation, assessment and plan is dictated by nurse practitioner Mrs. Priya Pantoja.
[2018-06-24] MEDS ORDERED: QUEtiapine 25 MG TAB PO PRN (23:07)
[2018-06-24] MEDS ORDERED: hydrALAZINE HCL 25 MG TAB PO PRN (23:15)
[2018-06-25] MEDS: AZTREONAM 2 GM in SODIUM CHLORIDE 0.9% 100 ML IVPB SCH ×4 (00:02→23:41)
[2018-06-25] MEDS: SODIUM CHLORIDE 0.9% 1,000 ML IV SCH ×3 (03:38→23:41)
[2018-06-25] MEDS: LEVOTHYROXINE 88 MCG TAB PO SCH (06:30)
--- NOTE | 2018-06-25 08:17 | P.PN ---
Subjective Progress Note Date: 06/25/18 This is a pleasant 68-year-old female with a known history of CVA, fibromyalgia , GERD, hyperlipidemia, hypertension, and multiple drug ALLERGIES. She was brought to the hospital with altered mental status. She has a history of an infected pain pump in the back and had staph bacteremia which was MRSA. She is currently being treated for possible infection and is being seen by ID. We were asked to see the patient due to elevated troponins. EKG showed sinus tachycardia with diffuse hypertrophic changes. Previous echocardiogram showed mildly impaired LV function with an ejection fraction of 45%. Upon examination , patient is resting comfortably in bed. She has no complaints of this time. Objective - Vital Signs Vital signs: Vital Signs Temp 97.9 F 06/25/18 06:27 Pulse 87 06/25/18 06:27 Resp 18 06/25/18 06:27 BP 138/75 06/25/18 06:27 Pulse Ox 96 06/25/18 06:27 Intake & Output 06/24/18 06/25/18 06/25/18 18:59 06:59 18:59 Weight 45.1 kg Other: Voiding Method Diaper Toilet Bedside Commode Diaper # Voids 1 1 # Bowel Movements 1 1 - Exam PHYSICAL EXAMINATION: HEENT: Head is atraumatic, normocephalic. Pupils equal, round. Neck is supple. There is no elevated jugular venous pressure. HEART EXAMINATION: Heart sounds regular, S1 and S2 normal. No murmur or gallop heard. CHEST EXAMINATION: Lungs are clear to auscultation with diminished air entry bilaterally. No chest wall tenderness is noted on palpation or with deep breathing. ABDOMEN: Soft, nontender. Bowel sounds are heard. No organomegaly noted. EXTREMITIES: 2+ peripheral pulses with no evidence of peripheral edema and no calf tenderness noted. NEUROLOGIC patient is awake, drowsy and oriented to person. . - Labs CBC & Chem 7: 06/24/18 03:37 06/24/18 03:37 Labs: Microbiology - Last 24 Hours (Table) 06/23/18 15:45 Urine Culture - Final Urine,Catheterized 06/23/18 15:22 Blood Culture - Preliminary Blood No Growth after 24 hours Assessment and Plan Assessment: #1 abnormal troponin levels, trend does not appear to be consistent with acute myocardial injury #2 sepsis #3 altered mental status #4 generalized weakness #5 infected pain pump #6 TIA Plan: From cardiac standpoint, we will obtain 2-D echo. If there are no new wall motion abnormalities, no further cardiac workup at this time. Medications were reviewed and will continue the same. Further recommendations to follow. SEARCH ANALYST note has been reviewed, I agree with a documented findings and plan of care. Patient was seen and examined.
[2018-06-25] MEDS: amLODIPine 2.5 MG TAB PO SCH (08:21)
[2018-06-25] MEDS: FLUTICASONE 50MCG/SPRAY NASAL 16GM EA NOSTRIL SCH (08:21)
[2018-06-25] MEDS: CLOPIDOGREL 75 MG TAB PO SCH (08:21)
[2018-06-25] MEDS: DULoxetine HCL 60 MG CAPSULE.DR PO SCH ×2 (08:24→22:12)
[2018-06-25] MEDS: METOPROLOL TARTRATE 50 MG TAB PO SCH ×3 (08:24→22:12)
[2018-06-25] MEDS: THIAMINE 100 MG TAB PO SCH (08:25)
[2018-06-25 08:47] LABS: HCT 33.2 % (34.0-46.0); HGB 11.3 gm/dL (11.4-16.0); MCH 27.8 pg (25.0-35.0); MCV 81.6 fL (80.0-100.0); Platelet Count 267 k/uL (150-450); RBC 4.07 m/uL (3.80-5.40); RDW 13.6 % (11.5-15.5)
[2018-06-25 08:58] LABS: Anion Gap 8 mmol/L; Blood Urea Nitrogen 14 mg/dL (7-17); Calcium 8.1 mg/dL (8.4-10.2); Carbon Dioxide 25 mmol/L (22-30); Chloride 101 mmol/L (98-107); Glucose 77 mg/dL (74-99); Sodium 134 mmol/L (137-145)
[2018-06-25 09:16] LABS: Potassium 2.4 mmol/L (3.5-5.1)
[2018-06-25] MEDS ORDERED: Potassium Replacement Protocol 1 EACH MISC MISCELLANE PRN ×2 (09:21→09:27)
[2018-06-25] MEDS ORDERED: POTASSIUM CHLORIDE 10 MEQ in WATER FOR INJECTION 1 100ML.BAG IVPB SCH (10:00)
[2018-06-25] MEDS: POTASSIUM CHLORIDE 10 MEQ in WATER FOR INJECTION 1 100ML.BAG IVPB SCH ×6 (10:09→16:11)
--- NOTE | 2018-06-25 16:08 | P.PN ---
Subjective Progress Note Date: 06/25/18 Progress note being dictated for Dr. Henderson Interval history:68-year-old admitted with altered mental status patient is completely confused at this time. Patient is on daptomycin and azotemia on exam because of lactic acidosis and possibility of sepsis patient was admitted multiple times in the past with MRSA bacteremia which was believed to be secondary to the pain pump. Pain pump may be contributing to his her confusion as well. I'll consult neurology. Patient was started on Seroquel as needed for agitation episodes. Unable to obtain any review of system due to the clinical condition 06/25/2018 evaluated by cardiology, neurology, and infectious disease with recommendations noted. Maintained on azactam and daptomycin. Afebrile. Potassium 2.4, receiving supplements. EEG pending. Objective - Vital Signs Vital signs: Vital Signs Temp 98.2 F 06/25/18 14:32 Pulse 78 06/25/18 14:32 Resp 20 06/25/18 14:32 BP 127/88 06/25/18 14:32 Pulse Ox 98 06/25/18 14:32 Intake & Output 06/24/18 06/25/18 06/25/18 18:59 06:59 18:59 Weight 45.1 kg Other: Voiding Method Diaper Toilet Toilet Bedside Commode Bedside Commode Diaper Diaper # Voids 1 1 2 # Bowel Movements 1 1 - Exam GENERAL: The patient is alert and oriented x0-1 , lethargic ,bedbound HEENT: Pupils are round and equally reacting to light. EOMI. No scleral icterus. No conjunctival pallor. Normocephalic, atraumatic. CARDIOVASCULAR: S1 and S2 present. No murmurs, rubs, or gallops. PULMONARY: Chest is clear to auscultation, no wheezing or crackles. ABDOMEN: Soft, nontender, nondistended, normoactive bowel sounds. No palpable organomegaly. MUSCULOSKELETAL: No joint swelling or deformity. EXTREMITIES: No cyanosis, clubbing, or pedal edema. NEUROLOGICAL: Unable to assess SKIN: No rashes. - Labs CBC & Chem 7: 06/25/18 08:17 06/25/18 10:55 Labs: Abnormal Lab Results - Last 24 Hours (Table) 06/25/18 06/25/18 06/25/18 Range/Units 08:17 08:17 10:55 WBC 12.0 H (3.8-10.6) k/uL Hgb 11.3 L (11.4-16.0) gm/dL Hct 33.2 L (34.0-46.0) % Sodium 134 L (137-145) mmol/L Potassium 2.4 L* 3.0 L (3.5-5.1) mmol/L Creatinine 0.51 L (0.52-1.04) mg/dL Calcium 8.1 L (8.4-10.2) mg/dL Microbiology - Last 24 Hours (Table) 06/23/18 15:45 Urine Culture - Final Urine,Catheterized 06/23/18 15:22 Blood Culture - Preliminary Blood No Growth after 24 hours Assessment and Plan Assessment: -Possible sepsis, etiology unclear, possible infected pain pump -Lactic acidosis possibly secondary to sepsis -Toxic encephalopathy: Probably secondary to sepsis. -Mildly elevated troponin secondary to possible sepsis , cardiology evaluated the patient with no further intervention -Fibromyalgia chronic pain syndrome, for which patient has a pain pump in place -Hyperlipidemia -Obstructive sleep apnea for which patient has CPAP machine at home Hypothyroidism -History of bariatric surgery -History of diabetes insipidus with the chronic hyponatremia CODE STATUS at to find out from the rehabilitation facility Plan: Continue current medication regime ,monitoring and symmetric treatment. Maintain IV fluids and antibiotics. Cultures pending. The impression and plan of care has been dictated as directed. : I performed a history and examination of this patient, discussed the same with the dictator. I agree with the dictator's note ,documented as a scribe. Any additional findings or plans will be noted.
[2018-06-25] MEDS: PANTOPRAZOLE 40 MG/10 ML VIAL IVP SCH (16:16)
[2018-06-25] MEDS: DAPTOmycin 500 MG in SODIUM CHLORIDE 0.9% 50 ML IVPB SCH (17:24)
--- NOTE | 2018-06-25 20:30 | EEG ---
ELECTROENCEPHALOGRAM REPORT DATE OF EE06/25/2018. REFERRING PHYSICIAN: Dr. Henderson. INTERPRETING PHYSICIAN: Dr. Filiberto BLAND. INDICATION FOR EXAMINATION: This patient is a 68-year-old female being evaluated for altered mental status. AGE: [age]. EEG FINDINGS: A routine 21 channel awake digital EEG recording was accomplished utilizing the 10-20 international system with bipolar and referential montages. The background activity in the most alert resting state consists of a low to medium amplitude, poorly developed and poorly sustained 6 Hz activity over the posterior head regions. This posterior rhythm attenuates to eye opening. There is a moderate amount of low amplitude 18-20 Hz beta activity seen in a generalized fashion. Muscle and movement artifact was observed on several occasions during the tracing. Hyperventilation was not performed. Photic stimulation at flash frequencies of 2-30 Hz produced a minimal occipital driving response. No epileptiform discharges were seen. IMPRESSION: This EEG is moderately abnormal in a diffuse fashion due to slowing of the EEG background. The EEG failed to reveal any focal, lateralized, or epileptiform abnormalities. Clinical correlation is recommended. MMODL / IJN: [id number] /
[2018-06-25] MEDS: CARBIDOPA-LEVODOPA 25-100 MG 1 EACH TAB PO SCH (22:12)
[2018-06-25] MEDS: ASPIRIN 81 MG PO SCH (22:12)
[2018-06-26] MEDS: LEVOTHYROXINE 88 MCG TAB PO SCH (06:16)
[2018-06-26] MEDS: FLUTICASONE 50MCG/SPRAY NASAL 16GM EA NOSTRIL SCH (07:27)
[2018-06-26] MEDS: THIAMINE 100 MG TAB PO SCH (07:27)
[2018-06-26] MEDS: PANTOPRAZOLE 40 MG/10 ML VIAL IVP SCH (07:27)
[2018-06-26] MEDS: CLOPIDOGREL 75 MG TAB PO SCH (07:27)
[2018-06-26] MEDS: AZTREONAM 2 GM in SODIUM CHLORIDE 0.9% 100 ML IVPB SCH ×3 (07:27→23:50)
[2018-06-26] MEDS: METOPROLOL TARTRATE 50 MG TAB PO SCH ×3 (07:27→22:18)
[2018-06-26] MEDS: DULoxetine HCL 60 MG CAPSULE.DR PO SCH ×2 (07:28→22:19)
[2018-06-26] MEDS: amLODIPine 2.5 MG TAB PO SCH (07:28)
[2018-06-26] MEDS: SODIUM CHLORIDE 0.9% 1,000 ML IV SCH ×3 (07:29→22:25)
--- NOTE | 2018-06-26 08:44 | P.PN ---
Subjective Progress Note Date: 06/25/18 68-year-old female who has a extensive past medical history including a history of TIA, fibromyalgia, obesity treated by [facility] with adequate success, and severe back pain. She's undergone multiple procedures in the past for her back pain and several years ago had a spinal cord stimulator placed. She had modestly good control of her pain with this device but eventually broke and was no longer effective. Because of her severe and ongoing back pain she was evaluated and had a trial of a intrathecal pain pump. She had good results and consequently the pain pump was placed with relatively good control of her pain. She has been treated for MRSA bacteremia in March with concern that was related to her pain pump. Bacteremia did clear and infection related to the pain pump was ruled out. Patient has been at [facility] but currently is living at home and has not been managed well at home and APS has been involved. Daughter and son are seeking co-guardianship and they are looking for [facility]FC near [place] and possibly subacute rehab in the interim. Patient came into [facility] emergency center. Patient presented to [facility] emergency center due to mental status changes. Patient has been afebrile, white count 19.6 and repeat 12, creatinine 0.66, lactic acid initially 3.6 and repeat 0.9 status post 2 L of IV fluids. Albumin 2.9. Troponin 0.086, 0.101 and 0.091. Urinalysis was dark brown, protein 2+, nitrate and leukoesterase negative. Urine drug screen was positive for opiates. Acetaminophen, salicylate level and I'll call level were all negative. Urine culture is in progress and blood culture status received. According to nursing, patient has had decreased appetite, no diarrhea no decubitus ulcers. Patient is pleasantly confused and appears to be at her baseline. Patient did have small emesis well in the room and Zofran ordered. Cardiology is on consult for elevated troponins. 06/25/2018 patient is comfortable but confused. Does not have complaints of pain. Objective - Vital Signs Vital signs: Vital Signs Temp 97.8 F 06/26/18 06:23 Pulse 86 06/26/18 06:23 Resp 16 06/26/18 06:23 BP 145/75 06/26/18 06:23 Pulse Ox 96 06/26/18 06:23 Intake & Output 06/25/18 06/26/18 06/26/18 18:59 06:59 18:59 Other: Voiding Method Toilet Bedside Commode Bedside Commode Diaper Diaper # Voids 2 2 - Exam GEN: 68-year-old woman in bed and appears to be comfortable. Patient had small emesis during exam. HEENT: Anicteric conjunctiva are pink and moist nasal mucosa grossly intact without significant lesions, there is no thrush. Neck: The neck is supple without significant lymphadenopathy or thyromegaly. Lungs: Good bilateral air entry without significant crackles or wheezing. There is no significant bronchial sounds. Heart: Regular rate and rhythm with an audible S1-S2, no S3 no S4. There is no significant murmur click or rub, PMI was nondisplaced. Abdomen: Positive bowel sounds, soft and nontender without palpable masses or organomegaly. There was no guarding or rebound. There is no tenderness at the site of her pain pump in the left abdomen ordered around to the left flank. No redness. Extremities: The upper extremities have excellent pulses they are symmetric. No pedal edema. Dorsalis pedis +2 bilaterally. Neuro: Awake alert oriented to person. There are no acute gross focal sensory motor deficits. Patient is able to follow commands. - Labs CBC & Chem 7: 06/25/18 08:17 06/25/18 18:47 Labs: Abnormal Lab Results - Last 24 Hours (Table) 06/25/18 06/25/18 06/25/18 Range/Units 08:17 08:17 10:55 WBC 12.0 H (3.8-10.6) k/uL Hgb 11.3 L (11.4-16.0) gm/dL Hct 33.2 L (34.0-46.0) % Sodium 134 L (137-145) mmol/L Potassium 2.4 L* 3.0 L (3.5-5.1) mmol/L Creatinine 0.51 L (0.52-1.04) mg/dL Calcium 8.1 L (8.4-10.2) mg/dL Microbiology - Last 24 Hours (Table) 06/23/18 15:22 Blood Culture - Preliminary Blood No Growth after 48 hours Laboratory Results WBC 12.0 k/uL (3.8-10.6) H 06/25/18 08:17 RBC 4.07 m/uL (3.80-5.40) 06/25/18 08:17 Hgb 11.3 gm/dL (11.4-16.0) L 06/25/18 08:17 Hct 33.2 % (34.0-46.0) L 06/25/18 08:17 MCV 81.6 fL (80.0-100.0) 06/25/18 08:17 MCH 27.8 pg (25.0-35.0) 06/25/18 08:17 MCHC 34.0 g/dL (31.0-37.0) 06/25/18 08:17 RDW 13.6 % (11.5-15.5) 06/25/18 08:17 Plt Count 267 k/uL (150-450) 06/25/18 08:17 Neutrophils % 79 % 06/24/18 03:37 Lymphocytes % 16 % 06/24/18 03:37 Monocytes % 3 % 06/24/18 03:37 Eosinophils % 1 % 06/24/18 03:37 Basophils % 0 % 06/24/18 03:37 Neutrophils # 9.6 k/uL (1.3-7.7) H 06/24/18 03:37 Lymphocytes # 1.9 k/uL (1.0-4.8) 06/24/18 03:37 Monocytes # 0.4 k/uL (0-1.0) 06/24/18 03:37 Eosinophils # 0.1 k/uL (0-0.7) 06/24/18 03:37 Basophils # 0.0 k/uL (0-0.2) 06/24/18 03:37 PT 10.7 sec (9.0-12.0) 06/23/18 15:22 INR 1.0 (<1.2) 06/23/18 15:22 APTT 18.3 sec (22.0-30.0) L 06/23/18 15:22 Sodium 134 mmol/L (137-145) L 06/25/18 08:17 Potassium 3.6 mmol/L (3.5-5.1) 06/25/18 18:47 Chloride 101 mmol/L (98-107) 06/25/18 08:17 Carbon Dioxide 25 mmol/L (22-30) 06/25/18 08:17 Anion Gap 8 mmol/L 06/25/18 08:17 BUN 14 mg/dL (7-17) 06/25/18 08:17 Creatinine 0.51 mg/dL (0.52-1.04) L 06/25/18 08:17 Est GFR (CKD-EPI)AfAm >90 (>60 ml/min/1.73 sqM) 06/25/18 08:17 Est GFR (CKD-EPI)NonAf >90 (>60 ml/min/1.73 sqM) 06/25/18 08:17 Glucose 77 mg/dL (74-99) 06/25/18 08:17 POC Glucose (mg/dL) 175 mg/dL (75-99) H 06/23/18 15:55 POC Glu Loss Prevention Associate ID Mariela Neri 06/23/18 15:55 Lactic Ac Sepsis Rflx Y 06/23/18 16:05 Plasma Lactic Acid Anjel 0.9 mmol/L (0.7-2.0) 06/24/18 03:37 Calcium 8.1 mg/dL (8.4-10.2) L 06/25/18 08:17 Total Bilirubin 0.7 mg/dL (0.2-1.3) 06/24/18 03:37 AST 26 U/L (14-36) 06/24/18 03:37 ALT 35 U/L (9-52) 06/24/18 03:37 Alkaline Phosphatase 60 U/L (38-126) 06/24/18 03:37 Total Creatine Kinase 127 U/L (30-135) 06/23/18 15:22 CK-MB (CK-2) 4.1 ng/mL (0.0-2.4) H 06/23/18 15:22 CK-MB (CK-2) Rel Index 3.2 06/23/18 15:22 Troponin I 0.091 ng/mL (0.000-0.034) H* 06/24/18 03:37 Total Protein 5.4 g/dL (6.3-8.2) L 06/24/18 03:37 Albumin 2.9 g/dL (3.5-5.0) L 06/24/18 03:37 Urine Color Dark Brown 06/23/18 15:45 Urine Appearance Clear (Clear) 06/23/18 15:45 Urine pH 6.0 (5.0-8.0) 06/23/18 15:45 Ur Specific [place] 1.021 (1.001-1.035) 06/23/18 15:45 Urine Protein 2+ (Negative) H 06/23/18 15:45 Urine Glucose (UA) Negative (Negative) 06/23/18 15:45 Urine Ketones Negative (Negative) 06/23/18 15:45 Urine Blood Negative (Negative) 06/23/18 15:45 Urine Nitrite Negative (Negative) 06/23/18 15:45 Urine Bilirubin Negative (Negative) 06/23/18 15:45 Urine Urobilinogen 2.0 mg/dL (<2.0) 06/23/18 15:45 Ur Leukocyte Esterase Negative (Negative) 06/23/18 15:45 Urine WBC <1 /hpf (0-5) 06/23/18 15:45 Salicylates <1.0 mg/dL 06/23/18 15:22 Urine Opiates Screen Detected (NotDetected) H 06/23/18 15:45 Ur Oxycodone Screen Not Detected (NotDetected) 06/23/18 15:45 Urine Methadone Screen Not Detected (NotDetected) 06/23/18 15:45 Ur Propoxyphene Screen Not Detected (NotDetected) 06/23/18 15:45 Acetaminophen <10.0 ug/mL 06/23/18 15:22 Ur Barbiturates Screen Not Detected (NotDetected) 06/23/18 15:45 U Tricyclic Antidepress Not Detected (NotDetected) 06/23/18 15:45 Ur Phencyclidine Scrn Not Detected (NotDetected) 06/23/18 15:45 Ur Amphetamines Screen Not Detected (NotDetected) 06/23/18 15:45 U Methamphetamines Scrn Not Detected (NotDetected) 06/23/18 15:45 U Benzodiazepines Scrn Not Detected (NotDetected) 06/23/18 15:45 Urine Cocaine Screen Not Detected (NotDetected) 06/23/18 15:45 U Marijuana (THC) Screen Not Detected (NotDetected) 06/23/18 15:45 Serum Alcohol <10 mg/dL 06/23/18 15:22 Microbiology 06/23/18 15:22 Blood Blood Culture - Preliminary No Growth after 48 hours 06/23/18 15:45 Urine,Catheterized Urine Culture - Final Assessment and Plan (1) Altered mental status Narrative/Plan: With the markedly elevated white blood cell count at admission and her encephalopathy concerns underlying sepsis and will continue current antibiotic therapy with daptomycin and Azactam pending blood culture results and evaluation of her neurological status. Fortunately he doesn't seem to have a trend to improve her leukocytosis. Troponins are normal being followed by cardiology. 06/25/2018 patient remains with confusion, seems comfortable. Workup is in process. History of leukocytosis and lactic acidosis is resolving. Cultures will hopefully clarify the antibiotic needs currently on daptomycin and Azactam based on her many ALLERGIES and histories of infection. Current Visit: Yes Status: Acute Code(s): R41.82 - ALTERED MENTAL STATUS, UNSPECIFIED SNOMED Code(s): 226186873
--- NOTE | 2018-06-26 10:02 | ECHOF ---
Referral Reason:elevated troponin MEASUREMENTS -------- HEIGHT: 152.4 cm WEIGHT: 44.9 kg BP: RVIDd: 3.0 cm (< 3.3) IVSd: 1.2 cm (0.6 - 1.1) LVIDd: 4.4 cm (3.9 - 5.3) LVPWd: 0.9 cm (0.6 - 1.1) IVSs: 1.3 cm LVIDs: 3.4 cm LVPWs: 1.4 cm LA Diam: 4.4 cm (2.7 - 3.8) LAESV Index (A-L): 35.23 ml/m Ao Diam: 3.0 cm (2.0 - 3.7) AV Cusp: 1.4 cm (1.5 - 2.6) MV EXCURSION: 24.295 mm (> 18.000) MV EF SLOPE: 55 mm/s (70 - 150) EPSS: 1.7 cm MV E Chin: 0.61 m/s MV DecT: 286 ms MV A Chin: 0.88 m/s MV E/A Ratio: 0.69 RAP: 5.00 mmHg RVSP: 28.16 mmHg FINDINGS -------- Sinus rhythm. This was a technically adequate study. The left ventricular size is normal. There is mild concentric left ventricular hypertrophy. Overa ll left ventricular systolic function is low-normal with, an EF between 50 - 55 %. The right ventricle is normal in size. The left atrium is moderately dilated. LA is moderately dilated 34-39 ml/m2 The right atrial size is normal. The aortic valve is trileaflet, and appears structurally normal. No aortic stenosis or regurgitation. Mild mitral annular calcification present. Mild mitral regurgitation is present. Mild tricuspid regurgitation present. There is no evidence of pulmonary hypertension. The right v entricular systolic pressure, as measured by Doppler, is 28.16mmHg. Trace/mild (physiologic) pulmonic regurgitation. The aortic root size is normal. There is no pericardial effusion. CONCLUSIONS -------- 1. The left ventricular size is normal. 2. There is mild concentric left ventricular hypertrophy. 3. Overall left ventricular systolic function is low-normal with, an EF between 50 - 55 %. 4. The right ventricle is normal in size. 5. The left atrium is moderately dilated. 6. LA is moderately dilated 34-39 ml/m2 7. The right atrial size is normal. 8. The aortic valve is trileaflet, and appears structurally normal. No aortic stenosis or regurgitati on. 9. Mild mitral annular calcification present. 10. Mild mitral regurgitation is present. 11. Mild tricuspid regurgitation present. 12. There is no evidence of pulmonary hypertension. 13. The right ventricular systolic pressure, as measured by Doppler, is 28.16mmHg. 14. Trace/mild (physiologic) pulmonic regurgitation. 15. The aortic root size is normal. 16. There is no pericardial effusion. AIR QUALITY INSTRUMENT SPECIALIST: Amirah Perez RDCS
--- NOTE | 2018-06-26 14:38 | P.PN ---
Subjective 68-year-old admitted with altered mental status patient is completely confused at this time. Patient is on daptomycin and azotemia on exam because of lactic acidosis and possibility of sepsis patient was admitted multiple times in the past with MRSA bacteremia which was believed to be secondary to the pain pump. Pain pump may be contributing to his her confusion as well. I'll consult neurology. Patient was started on Seroquel as needed for agitation episodes. Unable to obtain any review of system due to the clinical condition 06/25/2018 evaluated by cardiology, neurology, and infectious disease with recommendations noted. Maintained on azactam and daptomycin. Afebrile. Potassium 2.4, receiving supplements. EEG pending. 06/26/2018 Patient is feeling much better her confusion is at her baseline now which is alert oriented 1-2, patient probably related to be discharged to subacute rehabilitation on Thursday Constitutional: Denied any fatigue denied any fever. Cardio vascular: denied any chest pain, palpitations Gastrointestinal denied any nausea vomiting Pulmonary: Denied any shortness of breath cough Neurologic denied any new focal deficits All inpatient medications were reviewed and appropriate changes in these medications as dictated in the interval history and assessment and plan. Objective - Vital Signs Vital signs: Vital Signs Temp 97.8 F 06/26/18 06:23 Pulse 86 06/26/18 06:23 Resp 16 06/26/18 06:23 BP 145/75 06/26/18 06:23 Pulse Ox 96 06/26/18 06:23 Intake & Output 06/25/18 06/26/18 06/26/18 18:59 06:59 18:59 Other: Voiding Method Toilet Bedside Commode Bedside Commode Diaper Diaper # Voids 2 2 - Exam GENERAL: The patient is alert and oriented x1-2 , lethargic ,bedbound HEENT: Pupils are round and equally reacting to light. EOMI. No scleral icterus. No conjunctival pallor. Normocephalic, atraumatic. CARDIOVASCULAR: S1 and S2 present. No murmurs, rubs, or gallops. PULMONARY: Chest is clear to auscultation, no wheezing or crackles. ABDOMEN: Soft, nontender, nondistended, normoactive bowel sounds. No palpable organomegaly. MUSCULOSKELETAL: No joint swelling or deformity. EXTREMITIES: No cyanosis, clubbing, or pedal edema. NEUROLOGICAL: Unable to assess SKIN: No rashes. - Labs CBC & Chem 7: 06/25/18 08:17 06/25/18 18:47 Labs: Microbiology - Last 24 Hours (Table) 06/23/18 15:22 Blood Culture - Preliminary Blood No Growth after 48 hours Assessment and Plan Plan: Assessment and Plan Assessment: -Possible sepsis, etiology unclear, possible infected pain pump continue with the daptomycin and azotemia on I am -Lactic acidosis possibly secondary to sepsis resolved now -Toxic encephalopathy: Probably secondary to sepsis. Resolved now -Mildly elevated troponin secondary to possible sepsis , cardiology evaluated the patient with no further intervention -Fibromyalgia chronic pain syndrome, for which patient has a pain pump in place -Hyperlipidemia -Obstructive sleep apnea for which patient has CPAP machine at home Hypothyroidism -History of bariatric surgery -History of diabetes insipidus with the chronic hyponatremia Discharged to subacute rehabilitation on Thursday
[2018-06-26] MEDS: DAPTOmycin 500 MG in SODIUM CHLORIDE 0.9% 50 ML IVPB SCH (17:10)
--- NOTE | 2018-06-26 17:28 | PN ---
PROGRESS NOTE Mrs. Waterman feels much better. She is less confused today. Denies chest pains. Appears to be breathing much easier. She had an echocardiogram performed yesterday which revealed a normal left ventricular size and systolic function without significant pulmonary hypertension. Ejection fraction is in the range of 50% to 55% with some mild mitral annular calcification and mild mitral insufficiency. She has been hospitalized with multiple issues but seems to be doing much better. She lives in an assisted- living setting. Her mentation seems to have improved. Her troponin elevation was noted but does not represent any myocardial injury. Her echocardiogram revealed preserved systolic function. Vital signs are stable. S1, S2 heard normally. Short systolic murmur is audible. Lungs reveal decent air entry. Abdomen and lower extremity exam is otherwise unchanged. I am recommending that we continue current medical regimen. Her LV function is good on the echocardiogram. Her troponin profile does not suggest myocardial injury. I will continue to see the patient as needed during the hospitalization. Thank you very much for the consult. MMODL / IJN: [id number] /
[2018-06-26] MEDS: ASPIRIN 81 MG PO SCH (22:19)
[2018-06-26] MEDS: CARBIDOPA-LEVODOPA 25-100 MG 1 EACH TAB PO SCH (22:19)
[2018-06-27] MEDS: LEVOTHYROXINE 88 MCG TAB PO SCH (06:54)
[2018-06-27] MEDS: THIAMINE 100 MG TAB PO SCH (09:25)
[2018-06-27] MEDS: METOPROLOL TARTRATE 50 MG TAB PO SCH ×3 (09:25→19:53)
[2018-06-27] MEDS: amLODIPine 5 MG TAB PO SCH (09:25)
[2018-06-27] MEDS: DULoxetine HCL 60 MG CAPSULE.DR PO SCH ×2 (09:25→19:53)
[2018-06-27] MEDS: AZTREONAM 2 GM in SODIUM CHLORIDE 0.9% 100 ML IVPB SCH ×2 (09:25→17:06)
[2018-06-27] MEDS: CLOPIDOGREL 75 MG TAB PO SCH (09:25)
[2018-06-27] MEDS: FLUTICASONE 50MCG/SPRAY NASAL 16GM EA NOSTRIL SCH (09:25)
[2018-06-27] MEDS: PANTOPRAZOLE 40 MG/10 ML VIAL IVP SCH (09:26)
--- NOTE | 2018-06-27 14:56 | P.PN ---
Subjective 68-year-old admitted with altered mental status patient is completely confused at this time. Patient is on daptomycin and azotemia on exam because of lactic acidosis and possibility of sepsis patient was admitted multiple times in the past with MRSA bacteremia which was believed to be secondary to the pain pump. Pain pump may be contributing to his her confusion as well. I'll consult neurology. Patient was started on Seroquel as needed for agitation episodes. Unable to obtain any review of system due to the clinical condition 06/25/2018 evaluated by cardiology, neurology, and infectious disease with recommendations noted. Maintained on azactam and daptomycin. Afebrile. Potassium 2.4, receiving supplements. EEG pending. 06/26/2018 Patient is feeling much better her confusion is at her baseline now which is alert oriented 1-2, patient probably related to be discharged to subacute rehabilitation on Thursday06/27/2018 Patient is doing much better nursing staff is concerned that she is not eating much to avoid malnutrition we will order for appetite stimulant Constitutional: Denied any fatigue denied any fever. Cardio vascular: denied any chest pain, palpitations Gastrointestinal denied any nausea vomiting Pulmonary: Denied any shortness of breath cough Neurologic denied any new focal deficits All inpatient medications were reviewed and appropriate changes in these medications as dictated in the interval history and assessment and plan. Objective - Vital Signs Vital signs: Vital Signs Temp 98.8 F 06/27/18 07:00 Pulse 88 06/27/18 07:00 Resp 16 06/27/18 07:00 BP 139/67 06/27/18 07:00 Pulse Ox 97 06/27/18 07:00 Intake & Output 06/26/18 06/27/18 06/27/18 18:59 06:59 18:59 Intake Total 50 Balance 50 Intake: Oral 50 Other: Voiding Method Bedside Commode Bedside Commode Diaper Diaper # Voids 1 2 - Exam GENERAL: The patient is alert and oriented x1-2 , lethargic ,bedbound HEENT: Pupils are round and equally reacting to light. EOMI. No scleral icterus. No conjunctival pallor. Normocephalic, atraumatic. CARDIOVASCULAR: S1 and S2 present. No murmurs, rubs, or gallops. PULMONARY: Chest is clear to auscultation, no wheezing or crackles. ABDOMEN: Soft, nontender, nondistended, normoactive bowel sounds. No palpable organomegaly. MUSCULOSKELETAL: No joint swelling or deformity. EXTREMITIES: No cyanosis, clubbing, or pedal edema. NEUROLOGICAL: Unable to assess SKIN: No rashes. - Labs CBC & Chem 7: 06/25/18 08:17 06/25/18 18:47 Labs: Microbiology - Last 24 Hours (Table) 06/23/18 15:22 Blood Culture - Preliminary Blood No Growth after 72 hours Assessment and Plan Plan: Assessment and Plan Assessment: -Possible sepsis, etiology unclear, possible infected pain pump continue with the daptomycin and azotemia on I am -Lactic acidosis possibly secondary to sepsis resolved now -Toxic encephalopathy: Probably secondary to sepsis. Resolved now -Mildly elevated troponin secondary to possible sepsis , cardiology evaluated the patient with no further intervention -Fibromyalgia chronic pain syndrome, for which patient has a pain pump in place -Hyperlipidemia -Obstructive sleep apnea for which patient has CPAP machine at home Hypothyroidism -History of bariatric surgery -History of diabetes insipidus with the chronic hyponatremia Discharged to subacute rehabilitation on Thursday
[2018-06-27] MEDS: SODIUM CHLORIDE 0.9% 1,000 ML IV SCH (15:03)
[2018-06-27] MEDS: DRONABINOL 2.5 MG CAP PO SCH (17:06)
[2018-06-27] MEDS: ONDANSETRON 4 MG/2 ML VIAL IVP PRN (17:41)
[2018-06-27] MEDS: DAPTOmycin 500 MG in SODIUM CHLORIDE 0.9% 50 ML IVPB SCH (18:48)
[2018-06-27] MEDS: ASPIRIN 81 MG PO SCH (19:53)
[2018-06-27] MEDS: CARBIDOPA-LEVODOPA 25-100 MG 1 EACH TAB PO SCH (19:53)
[2018-06-28] MEDS: AZTREONAM 2 GM in SODIUM CHLORIDE 0.9% 100 ML IVPB SCH ×4 (00:44→23:34)
[2018-06-28] MEDS: SODIUM CHLORIDE 0.9% 1,000 ML IV SCH ×3 (00:45→20:19)
[2018-06-28] MEDS: LEVOTHYROXINE 88 MCG TAB PO SCH (05:53)
[2018-06-28] MEDS: PANTOPRAZOLE 40 MG/10 ML VIAL IVP SCH (09:10)
[2018-06-28] MEDS: DRONABINOL 2.5 MG CAP PO SCH ×2 (09:10→18:38)
[2018-06-28] MEDS: METOPROLOL TARTRATE 50 MG TAB PO SCH ×3 (09:11→20:19)
[2018-06-28] MEDS: amLODIPine 5 MG TAB PO SCH (09:11)
[2018-06-28] MEDS: CLOPIDOGREL 75 MG TAB PO SCH (09:11)
[2018-06-28] MEDS: FLUTICASONE 50MCG/SPRAY NASAL 16GM EA NOSTRIL SCH (09:11)
[2018-06-28] MEDS: DULoxetine HCL 60 MG CAPSULE.DR PO SCH ×2 (09:11→20:19)
[2018-06-28] MEDS: THIAMINE 100 MG TAB PO SCH (11:59)
[2018-06-28] MEDS: DAPTOmycin 500 MG in SODIUM CHLORIDE 0.9% 50 ML IVPB SCH (18:38)
--- NOTE | 2018-06-28 18:39 | PN ---
PROGRESS NOTE DATE OF SERVICE: 06/28/2018 This 68-year-old woman who was admitted with possible sepsis with undetermined etiology, unclear, is being closely monitored. Patient is on IV daptomycin and aztreonam. Multiple consultants, including Infectious Disease, are following the patient closely. PT/OT is following the patient also. clerical office worker is following the patient closely and legal guardianship issues are being also being monitored. Past medical history reviewed. REVIEW OF SYSTEMS: Review of systems could not be taken; the patient is confused. CURRENT MEDICATIONS: Reviewed. They include: 1. Tylenol 650 q.6 p.r.n. 2. Ventolin 2.5 q.i.d. p.r.n. 3. Norvasc 5 mg daily. 4. Aspirin 81 mg. 5. Aztreonam 2 grams IV q.8. 6. Sinemet 25/100 p.o. at bedtime. 7. Plavix 75 mg p.o. daily. 8. Daptomycin 500 mg IV b.i.d. 9. Marinol 2.5 b.i.d. 10.Cymbalta 60 mg b.i.d. 11.Flonase p.r.n. 12.Apresoline 75 mg q.i.d. 13.Synthroid 80 mcg p.o. daily. 14.Lopressor 50 mg p.o. t.i.d. 15.Narcan p.r.n. 16.Zofran p.r.n. 17.Protonix 40 mg IV daily. 18.Vitamin B1. 19.Valtrex. PHYSICAL EXAMINATION: Patient is alert, oriented x3. The pulse is 84, blood pressure 118/75, respiration 18, temperature 97.6, pulse ox 96% on room air. HEENT: Conjunctivae normal. NECK: No jugular venous distention. CARDIOVASCULAR SYSTEM: S1, S2 muffled. RESPIRATORY SYSTEM: Breath sounds diminished at the bases. A few scattered rhonchi. No crackles. ABDOMEN: Soft, non-tender. LEGS: No edema. No swelling. NERVOUS SYSTEM: Diffusely weak. LABS: WBC 12, hemoglobin 11.3, potassium 3. Troponin 0.091. ASSESSMENT: 1. Acute sepsis, present on admission. Etiology unknown. Rule out infected pain pump. 2. Continue on daptomycin and aztreonam. 3. Lactic acidosis. 4. Metabolic toxic encephalopathy, multifactorial. 5. Mildly elevated troponin, possibly secondary to sepsis. Cardiology following. 6. Fibromyalgia with chronic pain syndrome. 7. Hyperlipidemia. 8. Change in mental status, metabolic encephalopathy, acute on chronic. 9. Persistent sleep apnea. 10.History of bariatric surgery. 11.History of diabetes insipidus with chronic hyponatremia. 12.Hypokalemia. RECOMMENDATIONS AND DISCUSSION: I recommend to continue current medication, continue with symptomatic treatment. We will monitor the patient closely. Will closely follow with Infectious Disease. As mentioned earlier, cultures are negative. Patient had E coli from the urine on 04/14 and MRSA from the blood on 03/26, which were the last cultures positive. Will continue the rest of medications. Closely follow with Infectious Disease monitor and Social Work to address the guardianship issues. Further recommendations to follow. MMODL / KALN: [id number] / POOL
[2018-06-28] MEDS: ASPIRIN 81 MG PO SCH (20:19)
[2018-06-28] MEDS: CARBIDOPA-LEVODOPA 25-100 MG 1 EACH TAB PO SCH (20:19)
--- NOTE | 2018-06-28 23:37 | P.PN ---
Subjective Progress Note Date: 06/28/18 68-year-old female who has a extensive past medical history including a history of TIA, fibromyalgia, obesity treated by LAP-BAND with adequate success, and severe back pain. She's undergone multiple procedures in the past for her back pain and several years ago had a spinal cord stimulator placed. She had modestly good control of her pain with this device but eventually broke and was no longer effective. Because of her severe and ongoing back pain she was evaluated and had a trial of a intrathecal pain pump. She had good results and consequently the pain pump was placed with relatively good control of her pain. She has been treated for MRSA bacteremia in March with concern that was related to her pain pump. Bacteremia did clear and infection related to the pain pump was ruled out. Patient has been at alf but currently is living at home and has not been managed well at home and APS has been involved. Daughter and son are seeking co-guardianship and they are looking for AFC near [place] and possibly subacute rehab in the interim. Patient came into [facility] emergency center. Patient presented to [facility] emergency center due to mental status changes. Patient has been afebrile, white count 19.6 and repeat 12, creatinine 0.66, lactic acid initially 3.6 and repeat 0.9 status post 2 L of IV fluids. Albumin 2.9. Troponin 0.086, 0.101 and 0.091. Urinalysis was dark brown, protein 2+, nitrate and leukoesterase negative. Urine drug screen was positive for opiates. Acetaminophen, salicylate level and I'll call level were all negative. Urine culture is in progress and blood culture status received. According to nursing, patient has had decreased appetite, no diarrhea no decubitus ulcers. Patient is pleasantly confused and appears to be at her baseline. Patient did have small emesis well in the room and Zofran ordered. Cardiology is on consult for elevated troponins. 06/25/2018 patient is comfortable but confused. Does not have complaints of pain. 06/28/2018 patient confused but comfortable. Status continues to wax and wane. Son has many questions about her poor mental status significant waxing and waning. When directed with loud direct questions she is able to often correctly answer a simple question such as well as my name and she correctly stated Dr. Krishna. She knows that she is in the hospital she now she is in [place] but then rambles and has many statements that are incongruent with questions. She does not appear to be in acute distress. The leukocytosis and lactic acidosis present admission rapidly resolved with all negative cultures. Objective - Vital Signs Vital signs: Vital Signs Temp 97.6 F 06/28/18 15:00 Pulse 84 06/28/18 15:00 Resp 18 06/28/18 15:39 BP 118/75 06/28/18 15:00 Pulse Ox 96 06/28/18 15:00 Intake & Output 06/28/18 06/28/18 06/29/18 06:59 18:59 06:59 Intake Total 300 Balance 300 Weight 45.1 kg 45.1 kg Intake: Oral 300 Other: Voiding Method Toilet Toilet Toilet # Voids 1 3 # Bowel Movements 0 1 - Exam GEN: 68-year-old woman in bed and appears to be comfortable. Patient had small emesis during exam. HEENT: Anicteric conjunctiva are pink and moist nasal mucosa grossly intact without significant lesions, there is no thrush. Neck: The neck is supple without significant lymphadenopathy or thyromegaly. Lungs: Good bilateral air entry without significant crackles or wheezing. There is no significant bronchial sounds. Heart: Regular rate and rhythm with an audible S1-S2, no S3 no S4. There is no significant murmur click or rub, PMI was nondisplaced. Abdomen: Positive bowel sounds, soft and nontender without palpable masses or organomegaly. There was no guarding or rebound. There is no tenderness at the site of her pain pump in the left abdomen ordered around to the left flank. No redness. Extremities: The upper extremities have excellent pulses they are symmetric. No pedal edema. Dorsalis pedis +2 bilaterally. Neuro: Awake alert oriented to person. There are no acute gross focal sensory motor deficits. Patient is able to follow commands. However continues to have significant encephalopathy which has worsened over the last couple of months. - Labs CBC & Chem 7: 06/25/18 08:17 06/25/18 18:47 Labs: Microbiology - Last 24 Hours (Table) 06/23/18 15:22 Blood Culture - Preliminary Blood No Growth after 120 hours Laboratory Results WBC 12.0 k/uL (3.8-10.6) H 06/25/18 08:17 RBC 4.07 m/uL (3.80-5.40) 06/25/18 08:17 Hgb 11.3 gm/dL (11.4-16.0) L 06/25/18 08:17 Hct 33.2 % (34.0-46.0) L 06/25/18 08:17 MCV 81.6 fL (80.0-100.0) 06/25/18 08:17 MCH 27.8 pg (25.0-35.0) 06/25/18 08:17 MCHC 34.0 g/dL (31.0-37.0) 06/25/18 08:17 RDW 13.6 % (11.5-15.5) 06/25/18 08:17 Plt Count 267 k/uL (150-450) 06/25/18 08:17 Neutrophils % 79 % 06/24/18 03:37 Lymphocytes % 16 % 06/24/18 03:37 Monocytes % 3 % 06/24/18 03:37 Eosinophils % 1 % 06/24/18 03:37 Basophils % 0 % 06/24/18 03:37 Neutrophils # 9.6 k/uL (1.3-7.7) H 06/24/18 03:37 Lymphocytes # 1.9 k/uL (1.0-4.8) 06/24/18 03:37 Monocytes # 0.4 k/uL (0-1.0) 06/24/18 03:37 Eosinophils # 0.1 k/uL (0-0.7) 06/24/18 03:37 Basophils # 0.0 k/uL (0-0.2) 06/24/18 03:37 PT 10.7 sec (9.0-12.0) 06/23/18 15:22 INR 1.0 (<1.2) 06/23/18 15:22 APTT 18.3 sec (22.0-30.0) L 06/23/18 15:22 Sodium 134 mmol/L (137-145) L 06/25/18 08:17 Potassium 3.6 mmol/L (3.5-5.1) 06/25/18 18:47 Chloride 101 mmol/L (98-107) 12/07/18 08:17 Carbon Dioxide 25 mmol/L (22-30) 06/25/18 08:17 Anion Gap 8 mmol/L 06/25/18 08:17 BUN 14 mg/dL (7-17) 06/25/18 08:17 Creatinine 0.51 mg/dL (0.52-1.04) L 06/25/18 08:17 Est GFR (CKD-EPI)AfAm >90 (>60 ml/min/1.73 sqM) 06/25/18 08:17 Est GFR (CKD-EPI)NonAf >90 (>60 ml/min/1.73 sqM) 06/25/18 08:17 Glucose 77 mg/dL (74-99) 06/25/18 08:17 POC Glucose (mg/dL) 175 mg/dL (75-99) H 06/23/18 15:55 POC Glu Senior Physician ID Mariela Neri 06/23/18 15:55 Lactic Ac Sepsis Rflx Y 06/23/18 16:05 Plasma Lactic Acid Anjel 0.9 mmol/L (0.7-2.0) 06/24/18 03:37 Calcium 8.1 mg/dL (8.4-10.2) L 06/25/18 08:17 Total Bilirubin 0.7 mg/dL (0.2-1.3) 06/24/18 03:37 AST 26 U/L (14-36) 06/24/18 03:37 ALT 35 U/L (9-52) 06/24/18 03:37 Alkaline Phosphatase 60 U/L (38-126) 06/24/18 03:37 Total Creatine Kinase 127 U/L (30-135) 06/23/18 15:22 CK-MB (CK-2) 4.1 ng/mL (0.0-2.4) H 06/23/18 15:22 CK-MB (CK-2) Rel Index 3.2 06/23/18 15:22 Troponin I 0.091 ng/mL (0.000-0.034) H* 06/24/18 03:37 Total Protein 5.4 g/dL (6.3-8.2) L 06/24/18 03:37 Albumin 2.9 g/dL (3.5-5.0) L 06/24/18 03:37 Urine Color Dark Brown 06/23/18 15:45 Urine Appearance Clear (Clear) 06/23/18 15:45 Urine pH 6.0 (5.0-8.0) 06/23/18 15:45 Ur Specific [place] 1.021 (1.001-1.035) 06/23/18 15:45 Urine Protein 2+ (Negative) H 06/23/18 15:45 Urine Glucose (UA) Negative (Negative) 06/23/18 15:45 Urine Ketones Negative (Negative) 06/23/18 15:45 Urine Blood Negative (Negative) 06/23/18 15:45 Urine Nitrite Negative (Negative) 06/23/18 15:45 Urine Bilirubin Negative (Negative) 06/23/18 15:45 Urine Urobilinogen 2.0 mg/dL (<2.0) 06/23/18 15:45 Ur Leukocyte Esterase Negative (Negative) 06/23/18 15:45 Urine WBC <1 /hpf (0-5) 06/23/18 15:45 Salicylates <1.0 mg/dL 06/23/18 15:22 Urine Opiates Screen Detected (NotDetected) H 06/23/18 15:45 Ur Oxycodone Screen Not Detected (NotDetected) 06/23/18 15:45 Urine Methadone Screen Not Detected (NotDetected) 06/23/18 15:45 Ur Propoxyphene Screen Not Detected (NotDetected) 06/23/18 15:45 Acetaminophen <10.0 ug/mL 06/23/18 15:22 Ur Barbiturates Screen Not Detected (NotDetected) 06/23/18 15:45 U Tricyclic Antidepress Not Detected (NotDetected) 06/23/18 15:45 Ur Phencyclidine Scrn Not Detected (NotDetected) 06/23/18 15:45 Ur Amphetamines Screen Not Detected (NotDetected) 06/23/18 15:45 U Methamphetamines Scrn Not Detected (NotDetected) 06/23/18 15:45 U Benzodiazepines Scrn Not Detected (NotDetected) 06/23/18 15:45 Urine Cocaine Screen Not Detected (NotDetected) 06/23/18 15:45 U Marijuana (THC) Screen Not Detected (NotDetected) 06/23/18 15:45 Serum Alcohol <10 mg/dL 06/23/18 15:22 Microbiology 06/23/18 15:22 Blood Blood Culture - Preliminary No Growth after 120 hours Microbiology 06/23/18 15:22 Blood Blood Culture - Preliminary No Growth after 120 hours 06/23/18 15:45 Urine,Catheterized Urine Culture - Final Assessment and Plan (1) Altered mental status Narrative/Plan: With the markedly elevated white blood cell count at admission and her encephalopathy concerns underlying sepsis and will continue current antibiotic therapy with daptomycin and Azactam pending blood culture results and evaluation of her neurological status. Fortunately he doesn't seem to have a trend to improve her leukocytosis. Troponins are normal being followed by cardiology. 06/25/2018 patient remains with confusion, seems comfortable. Workup is in process. History of leukocytosis and lactic acidosis is resolving. Cultures will hopefully clarify the antibiotic needs currently on daptomycin and Azactam based on her many ALLERGIES and histories of infection. 06/28/2018 patient still has significant confusion. Patient's son is wondering of psychiatry as needed. Primary services requested that consult. Patient continues to have significant encephalopathy concerns to underlying infection as etiology. No positive cultures this time. She seems to be tolerating the current daptomycin and Azactam therapy well. Her leukocytosis and lactic acidosis rapidly resolved with admission antibiotics and hydration. No distinct infections found. A tagged white blood cell study is requested to evaluate any other site of deep infection particularly of the implanted hardware. Current Visit: Yes Status: Acute Code(s): R41.82 - ALTERED MENTAL STATUS, UNSPECIFIED SNOMED Code(s): 882553248
[2018-06-29] MEDS: SODIUM CHLORIDE 0.9% 1,000 ML IV SCH ×2 (05:52→17:41)
[2018-06-29] MEDS: LEVOTHYROXINE 88 MCG TAB PO SCH (05:56)
[2018-06-29] MEDS: AZTREONAM 2 GM in SODIUM CHLORIDE 0.9% 100 ML IVPB SCH ×2 (07:52→17:40)
[2018-06-29] MEDS: DRONABINOL 2.5 MG CAP PO SCH ×2 (07:52→17:41)
[2018-06-29] MEDS: DULoxetine HCL 60 MG CAPSULE.DR PO SCH ×2 (07:52→20:47)
[2018-06-29] MEDS: METOPROLOL TARTRATE 50 MG TAB PO SCH ×3 (07:52→20:47)
[2018-06-29] MEDS: PANTOPRAZOLE 40 MG/10 ML VIAL IVP SCH (07:52)
[2018-06-29] MEDS: CLOPIDOGREL 75 MG TAB PO SCH (07:53)
[2018-06-29] MEDS: FLUTICASONE 50MCG/SPRAY NASAL 16GM EA NOSTRIL SCH (07:53)
[2018-06-29] MEDS: amLODIPine 5 MG TAB PO SCH (07:53)
[2018-06-29] MEDS: THIAMINE 100 MG TAB PO SCH (11:27)
[2018-06-29 11:55] LABS: ALT 21 U/L (9-52); AST 15 U/L (14-36); Albumin 2.6 g/dL (3.5-5.0); Alkaline Phosphatase 41 U/L (38-126); Anion Gap 7 mmol/L; Blood Urea Nitrogen 4 mg/dL (7-17); Calcium 6.7 mg/dL (8.4-10.2); Carbon Dioxide 32 mmol/L (22-30); Chloride 97 mmol/L (98-107); Glucose 99 mg/dL (74-99); Sodium 136 mmol/L (137-145); Total Bilirubin 0.5 mg/dL (0.2-1.3); Total Protein 5.1 g/dL (6.3-8.2)
[2018-06-29 12:02] LABS: Basophils % (A) 0 %; Eosinophils # (A) 0.2 k/uL (0-0.7); Eosinophils % (A) 3 %; HCT 31.4 % (34.0-46.0); HGB 10.4 gm/dL (11.4-16.0); Lymphocytes # (A) 1.5 k/uL (1.0-4.8); Lymphocytes % (A) 17 %; MCH 26.5 pg (25.0-35.0); MCHC 33.2 g/dL (31.0-37.0); MCV 79.6 fL (80.0-100.0); Monocytes # (A) 0.3 k/uL (0-1.0); Monocytes % (A) 4 %; Neutrophils # (A) 6.6 k/uL (1.3-7.7); Neutrophils % (A) 75 %; Platelet Count 287 k/uL (150-450); RBC 3.94 m/uL (3.80-5.40); RDW 13.7 % (11.5-15.5); WBC 8.7 k/uL (3.8-10.6)
[2018-06-29] MEDS: POTASSIUM CHLORIDE 20 MEQ in WATER FOR INJECTION 1 100ML.BAG IVPB SCH ×4 (13:18→22:30)
[2018-06-29] MEDS ORDERED: Magnesium Replacement Protocol 1 EACH MISC MISCELLANE PRN (13:23)
--- NOTE | 2018-06-29 13:36 | P.CN ---
Psychiatric Consult - . Consult date: 06/29/18 Consult:: 06/29/18 09:45 depression and altered mental status Assessment and Plan Assessment: History of Present Illness HPI: This is a 68-year-old female who has a extensive past medical history including a history of TIA, fibromyalgia, obesity treated by LAP-BAND with adequate success, and severe back pain. She's undergone multiple procedures in the past for her back pain and several years ago had a spinal cord stimulator placed. She had modestly good control of her pain with this device but eventually broke and was no longer effective. Because of her severe and ongoing back pain she was evaluated and had a trial of a intrathecal pain pump. She had good results and consequently the pain pump was placed with relatively good control of her pain. She has been treated for MRSA bacteremia in March with concern that was related to her pain pump. Bacteremia did clear and infection related to the pain pump was ruled out. [facility] has been at [facility] but currently is living at home and has not been managed well at home and APS has been involved. Daughter and son are seeking co- guardianship and they are looking for AFC near [place] and possibly subacute rehab in the interim. Patient came into [facility] emergency center. Patient presented to [facility] emergency center due to mental status changes. Patient has been afebrile, white count 19.6 and repeat 12, creatinine 0.66, lactic acid initially 3.6 and repeat 0.9 status post 2 L of IV fluids. Albumin 2.9. Troponin 0.086, 0.101 and 0.091. Urinalysis was dark brown, protein 2+, nitrate and leukoesterase negative. Urine drug screen was positive for opiates. Acetaminophen, salicylate level and I'll call level were all negative. Urine culture is in progress and blood culture status received. According to nursing, patient has had decreased appetite, no diarrhea no decubitus ulcers. Patient is pleasantly confused and appears to be at her baseline. Patient did have small emesis well in the room and Zofran ordered. Cardiology is on consult for elevated troponins. Past Medical History Past Medical History: Asthma, Cancer, Chest Pain / Angina, CVA/TIA, Fibromyalgia , GERD/Reflux, Hyperlipidemia, Hypertension, Osteoarthritis (OA), Renal Disease , Sleep Apnea/CPAP/BIPAP, Thyroid Disorder Additional Past Medical History / Comment(s): Pt recently admitted to [facility] on 03/26/18 with UTI/sepsis, hyponatremia/SIADH, hypomagnesemia, hypokalemia and bacterial MRSA. Other HX: Frequent falls, bilateral weakness from CVAs and loss of equalibrium-also had bilateral facial droops that resolve, pt states she has had 6 CVAs total, TIAs, L leg bone cancer and entire leg has titanium rods, R knee arthroplasty-pt fell and damaged artificial joint, chronic back pain, carpal tunnel syndrome bilateral elbows/shoulders, DJD, diabetes insipidus, LAUREN with no device since weight loss, CKD stage III, UMKUMIUT bilaterally, anemia. History of Any Multi-Drug Resistant Organisms: MRSA Year Discovered:: 03/26/18 MDRO Source:: BLOOD Past Surgical History: Appendectomy, Back Surgery, Bariatric Surgery, Cholecystectomy, Heart Catheterization, Hysterectomy, Joint Replacement, Orthopedic Surgery, Tubal Ligation Additional Past Surgical History / Comment(s): 04/02/18 PICC line for ABX, Lap band with removal, gastric sleeve, L leg titanium rods, R total knee arthroplasty, bilateral wrist carpal tunnel releases, R great toe surgery to remove a growth, lithotripsy, pain stimulator-nonfunctioning, pain clinic procedures, bilateral cataract removals. Past Anesthesia/Blood Transfusion Reactions: Previous Problems w/ Anesthesia Additional Past Anesthesia/Blood Transfusion Reaction / Comm: Slow to wake. Past Psychological History: Anxiety, Depression, Panic Disorder Smoking Status: Never smoker Past Alcohol Use History: None Reported Past Drug Use History: None Reported - Past Family History Father Additional Family Medical History / Comment(s): pt was 7 years old when her father was murdered/ from gsw Mother Family Medical History: CVA/TIA Daughter(s) Family Medical History: Deep Vein Thrombosis (DVT) Additional Family Medical History / Comment(s): dvt Medications and Allergies Home Medications Medication Instructions Recorded Confirmed Type RX: Clopidogrel [Plavix] 75 mg PO DAILY 01/04/14 06/23/18 History RX: DULoxetine HCL [Cymbalta] 60 mg PO BID 01/04/14 06/23/18 History RX: Levothyroxine Sodium 88 mcg PO QAM 01/04/14 06/23/18 History [Synthroid] RX: Aspirin 81 mg PO HS 02/07/14 06/23/18 History RX: valACYclovir HCL [Valtrex] 1,000 mg PO DAILY PRN 02/07/14 06/23/18 History RX: Vitamin B Complex 1 cap PO DAILY 02/21/15 06/23/18 History RX: Biotin 5 mg PO DAILY 04/26/15 06/23/18 History RX: Ascorbic Acid [Vitamin C] 1,000 mg PO DAILY 05/13/16 06/23/18 History RX: Carbidopa-Levodopa 25-100 mg 1 tab PO HS 03/26/18 06/23/18 History [Sinemet 25-100 mg] RX: Cholecalciferol [Vitamin D3] 5,000 unit PO DAILY 03/26/18 06/23/18 History RX: Levalbuterol Hfa Inhaler 2 puff INHALATION RT-Q6H PRN 03/26/18 06/23/18 History [Xopenex Hfa Inhaler] RX: Losartan Potassium 100 mg PO DAILY 03/26/18 06/23/18 History RX: Folic Acid 1 mg PO DAILY@1200 #30 tab 04/02/18 06/23/18 Rx RX: Thiamine [Vitamin B-1] 100 mg PO DAILY@1200 #30 tab 04/02/18 06/23/18 Rx Albuterol Nebulized [Ventolin 2.5 mg INHALATION RT-QID PRN 06/23/18 06/23/18 History Nebulized] Cyanocobalamin (Vitamin B-12) 1,000 mcg PO DAILY 06/23/18 06/23/18 History [Vitamin B-12] Fluticasone Nasal [place] [Flonase 1 spray EA NOSTRIL DAILY 06/23/18 06/23/18 History Nasal [place]] Metoprolol Tartrate [Lopressor] 50 mg PO TID 06/23/18 06/23/18 History amLODIPine [Norvasc] 2.5 mg PO DAILY 06/23/18 06/23/18 History Allergies Allergy/AdvReac Type Severity Reaction Status Date / Time aripiprazole [From Abilify] Allergy Anaphylaxis Verified 06/23/18 16:23 baclofen Allergy Anaphylaxis Verified 06/23/18 16:23 butalbital [From Fioricet] Allergy Rash/Hives Verified 06/23/18 16:23 cefadroxil hydrate Allergy Rash/Hives Verified 06/23/18 16:23 [From Duricef] cefazolin sodium Allergy Anaphylaxis Verified 06/23/18 16:23 [From Kefzol] cephalexin monohydrate Allergy Anaphylaxis Verified 06/23/18 16:23 [From Keflex] ciprofloxacin [From Cipro] Allergy Swelling Verified 06/23/18 16:23 OF THROAT ,RASH AND HIVES ciprofloxacin HCl Allergy Rash/Hives, Verified 06/23/18 16:23 [From Cipro] SWELLING OF THROAT clindamycin HCl Allergy Unknown Verified 06/23/18 16:23 [From Cleocin] clindamycin palmitate HCl Allergy Unknown Verified 06/23/18 16:23 [From Cleocin] clindamycin phosphate Allergy Unknown Verified 06/23/18 16:23 [From Cleocin] dexamethasone [From Decadron] Allergy Anaphylaxis Verified 06/23/18 16:23 dexamethasone sod phosphate Allergy Anaphylaxis Verified 06/23/18 16:23 [From Decadron] ,RASH divalproex sodium Allergy Rash/Hives Verified 06/23/18 16:23 [From Depakote] hydroxyzine HCl [From Atarax] Allergy Unknown Verified 06/23/18 16:23 ibuprofen [From Motrin] Allergy RASH Verified 06/23/18 16:23 ,ITCHING SWELLING OF THROAT influenza virus vaccine, Allergy Anaphylaxis Verified 06/23/18 16:23 specific [Influenza Virus Vacc,Specific] Iodinated Contrast- Oral and Allergy Anaphylaxis Verified 06/23/18 16:23 IV Dye ketorolac tromethamine Allergy Chest Pain Verified 06/23/18 16:23 [From Toradol] lidocaine HCl Allergy Anaphylaxis Verified 06/23/18 16:23 [From Xylocaine] lisinopril Allergy Swelling Verified 06/23/18 16:23 meperidine HCl [From Demerol] Allergy Rash/Hives Verified 06/23/18 16:23 Milk Containing Products Allergy ABDOMINAL Verified 06/23/18 16:23 PAIN NAUSEA AND VOMITING morphine Allergy Vomiting Verified 06/23/18 16:23 Mushroom Allergy Anaphylaxis Verified 06/23/18 16:23 nortriptyline HCl Allergy Unknown Verified 06/23/18 16:23 [From Pamelor] omalizumab [From Xolair] Allergy Anaphylaxis Verified 06/23/18 16:23 Penicillins Allergy Rash/Hives Verified 06/23/18 16:23 pregabalin [From Lyrica] Allergy Rash/Hives Verified 06/23/18 16:23 procaine HCl [From Novocain] Allergy Unknown Verified 06/23/18 16:23 shellfish derived Allergy Anaphylaxis Verified 06/23/18 16:23 sulfamethoxazole Allergy Unknown Verified 06/23/18 16:23 [From ] tetracycline [Tetracycline] Allergy Rash/Hives Verified 06/23/18 16:23 theophylline anhydrous Allergy Unknown Verified 06/23/18 16:23 [From Joel-Dur] triamcinolone Allergy Anaphylaxis Verified 06/23/18 16:23 trimethoprim [From ] Allergy RASH, Verified 06/23/18 16:23 ITCHING vancomycin Allergy ITCHING Verified 06/23/18 16:23 ,HIVES wheat Allergy Rash/Hives Verified 06/23/18 16:23 yellow dye Allergy Anaphylaxis Verified 06/23/18 16:23 erythromycin base AdvReac Rash/Hives Verified 06/23/18 16:23 fentanyl [From Duragesic] AdvReac Unknown Verified 06/23/18 16:23 NSAIDS (Non-Steroidal AdvReac Unknown Verified 06/23/18 16:23 Anti-Inflamma verapamil AdvReac Rash/Hives Verified 06/23/18 16:23 PAPER TAPE Allergy Rash/BLISTE Uncoded 04/27/18 13:31 RS PERSERATIVE IN ALBUTEROL Allergy Dyspnea Uncoded 04/27/18 13:31 INHALER PU steroids Allergy Rash/Hives Uncoded 04/27/18 13:31 WHITE SUTURE Allergy Swelling Uncoded 04/27/18 13:31 Mental Status Examination - General Appearance: [appears older than stated age Speech/Language: slow, rambled, mumbling, hesitant, halting, monotone Attitude/Behavior: [guarded, withdrawn, indifferent Mood: [anxious, elated, irritable, angry, fearful, hopelessness Affect: [ flat, incongruent, labile, blunted constricted] Orientation: [Not to time, person, not to place situation] Thought Content: [delusions Risk Factors: [Denies suicidal (ideations, plan), and/or Homicidal (ideations, plan), other] Perception: [wnl, denies hallucinations (auditory, visual, tactile), other] Thought Processes: [Unable to obtain goal-oriented, concrete, circumstantial, tangential, other] Concentration/Attention Span: [ impaired] [Per observation and interview with the patient] Recent Memory: [ impaired] [0 out of 3 in 3 minutes] Remote Memory: [ impaired] [past events, as related history] Intelligence: [below average] [based on history, based on vocabulary, syntax, grammar, and content] Judgement: [poor] [per patient's behavior/history of present illness] Insight: [ poor] [understanding severity of illness/history of present illness] Psychiatric impression: Currently she displays delirium and is a medical issue for stability of electrolytes Psychiatric recommendation: Medical stability and is our recommendation Thank you for the consultation Harley Ramos D.O. PhD Time with Patient: Less than 30
[2018-06-29] MEDS: MAGNESIUM SULFATE-D5W PMX 1 GM in DEXTROSE/WATER 1 100ML.BAG IVPB SCH ×4 (13:42→17:34)
[2018-06-29] MEDS: POTASSIUM CHLORIDE ER 20 MEQ TAB.ER PO SCH ×5 (15:19→22:31)
[2018-06-29] MEDS: DAPTOmycin 500 MG in SODIUM CHLORIDE 0.9% 50 ML IVPB SCH (18:51)
[2018-06-29] MEDS: ASPIRIN 81 MG PO SCH (20:47)
[2018-06-29] MEDS: CARBIDOPA-LEVODOPA 25-100 MG 1 EACH TAB PO SCH (20:47)
--- NOTE | 2018-06-29 22:17 | P.PN ---
Subjective Progress Note Date: 06/29/18 68-year-old female who has a extensive past medical history including a history of TIA, fibromyalgia, obesity treated by [facility] with adequate success, and severe back pain. She's undergone multiple procedures in the past for her back pain and several years ago had a spinal cord stimulator placed. She had modestly good control of her pain with this device but eventually broke and was no longer effective. Because of her severe and ongoing back pain she was evaluated and had a trial of a intrathecal pain pump. She had good results and consequently the pain pump was placed with relatively good control of her pain. She has been treated for MRSA bacteremia in March with concern that was related to her pain pump. Bacteremia did clear and infection related to the pain pump was ruled out. Patient has been at jail but currently is living at home and has not been managed well at home and APS has been involved. Daughter and son are seeking co-guardianship and they are looking for AFC near [place] and possibly subacute rehab in the interim. Patient came into [facility] emergency center. Patient presented to [facility] emergency center due to mental status changes. Patient has been afebrile, white count 19.6 and repeat 12, creatinine 0.66, lactic acid initially 3.6 and repeat 0.9 status post 2 L of IV fluids. Albumin 2.9. Troponin 0.086, 0.101 and 0.091. Urinalysis was dark brown, protein 2+, nitrate and leukoesterase negative. Urine drug screen was positive for opiates. Acetaminophen, salicylate level and I'll call level were all negative. Urine culture is in progress and blood culture status received. According to nursing, patient has had decreased appetite, no diarrhea no decubitus ulcers. Patient is pleasantly confused and appears to be at her baseline. Patient did have small emesis well in the room and Zofran ordered. Cardiology is on consult for elevated troponins. 06/25/2018 patient is comfortable but confused. Does not have complaints of pain. 06/28/2018 patient confused but comfortable. Status continues to wax and wane. Son has many questions about her poor mental status significant waxing and waning. When directed with loud direct questions she is able to often correctly answer a simple question such as well as my name and she correctly stated Dr. Krishna. She knows that she is in the hospital she now she is in [place] but then rambles and has many statements that are incongruent with questions. She does not appear to be in acute distress. The leukocytosis and lactic acidosis present admission rapidly resolved with all negative cultures. 06/29/2018 patient continues to have poor mental status quite confused and lethargic today. She is receiving her take white blood cell study today. Objective - Vital Signs Vital signs: Vital Signs Temp 98.8 F 06/29/18 15:00 Pulse 88 06/29/18 15:00 Resp 18 06/29/18 16:00 BP 153/67 06/29/18 15:00 Pulse Ox 98 06/29/18 15:00 Intake & Output 06/29/18 06/29/18 06/30/18 06:59 18:59 06:59 Intake Total 600 Balance 600 Weight 45.1 kg Intake: Oral 600 Other: Voiding Method Toilet Bedside Commode Diaper Incontinent # Voids 2 3 - Exam GEN: 68-year-old woman in bed and appears to be comfortable. Patient had small emesis during exam. HEENT: Anicteric conjunctiva are pink and moist nasal mucosa grossly intact without significant lesions, there is no thrush. Neck: The neck is supple without significant lymphadenopathy or thyromegaly. Lungs: Good bilateral air entry without significant crackles or wheezing. There is no significant bronchial sounds. Heart: Regular rate and rhythm with an audible S1-S2, no S3 no S4. There is no significant murmur click or rub, PMI was nondisplaced. Abdomen: Positive bowel sounds, soft and nontender without palpable masses or organomegaly. There was no guarding or rebound. There is no tenderness at the site of her pain pump in the left abdomen ordered around to the left flank. No redness. Extremities: The upper extremities have excellent pulses they are symmetric. No pedal edema. Dorsalis pedis +2 bilaterally. Neuro: Awake alert oriented to person. There are no acute gross focal sensory motor deficits. Patient is able to follow commands. However continues to have significant encephalopathy which has worsened over the last couple of months. - Labs CBC & Chem 7: 06/29/18 11:30 06/29/18 18:23 Labs: Abnormal Lab Results - Last 24 Hours (Table) 06/29/18 06/29/18 06/29/18 Range/Units 08:42 08:42 11:30 Hgb 10.4 L (11.4-16.0) gm/dL Hct 31.4 L (34.0-46.0) % MCV 79.6 L (80.0-100.0) fL ESR 39 H (0-20) mm/hr Sodium (137-145) mmol/L Potassium (3.5-5.1) mmol/L Chloride (98-107) mmol/L Carbon Dioxide (22-30) mmol/L BUN (7-17) mg/dL Creatinine (0.52-1.04) mg/dL Calcium (8.4-10.2) mg/dL Magnesium (1.6-2.3) mg/dL C-Reactive Protein 70.8 H (<10.0) mg/L Total Protein (6.3-8.2) g/dL Albumin (3.5-5.0) g/dL 06/29/18 06/29/18 06/29/18 Range/Units 11:30 11:30 18:23 Hgb (11.4-16.0) gm/dL Hct (34.0-46.0) % MCV (80.0-100.0) fL ESR (0-20) mm/hr Sodium 136 L (137-145) mmol/L Potassium 2.0 L* 2.6 L* (3.5-5.1) mmol/L Chloride 97 L (98-107) mmol/L Carbon Dioxide 32 H (22-30) mmol/L BUN 4 L (7-17) mg/dL Creatinine 0.41 L (0.52-1.04) mg/dL Calcium 6.7 L (8.4-10.2) mg/dL Magnesium 0.6 L* (1.6-2.3) mg/dL C-Reactive Protein (<10.0) mg/L Total Protein 5.1 L (6.3-8.2) g/dL Albumin 2.6 L (3.5-5.0) g/dL Microbiology - Last 24 Hours (Table) 06/23/18 15:22 Blood Culture - Final Blood No Growth after 144 hours Laboratory Results WBC 8.7 k/uL (3.8-10.6) 06/29/18 11:30 RBC 3.94 m/uL (3.80-5.40) 06/29/18 11:30 Hgb 10.4 gm/dL (11.4-16.0) L 06/29/18 11:30 Hct 31.4 % (34.0-46.0) L 06/29/18 11:30 MCV 79.6 fL (80.0-100.0) L 06/29/18 11:30 MCH 26.5 pg (25.0-35.0) 06/29/18 11:30 MCHC 33.2 g/dL (31.0-37.0) 06/29/18 11:30 RDW 13.7 % (11.5-15.5) 06/29/18 11:30 Plt Count 287 k/uL (150-450) 06/29/18 11:30 Neutrophils % 75 % 06/29/18 11:30 Lymphocytes % 17 % 06/29/18 11:30 Monocytes % 4 % 06/29/18 11:30 Eosinophils % 3 % 06/29/18 11:30 Basophils % 0 % 06/29/18 11:30 Neutrophils # 6.6 k/uL (1.3-7.7) 06/29/18 11:30 Lymphocytes # 1.5 k/uL (1.0-4.8) 06/29/18 11:30 Monocytes # 0.3 k/uL (0-1.0) 06/29/18 11:30 Eosinophils # 0.2 k/uL (0-0.7) 06/29/18 11:30 Basophils # 0.0 k/uL (0-0.2) 06/29/18 11:30 ESR 39 mm/hr (0-20) H 06/29/18 08:42 PT 10.7 sec (9.0-12.0) 06/23/18 15:22 INR 1.0 (<1.2) 06/23/18 15:22 APTT 18.3 sec (22.0-30.0) L 06/23/18 15:22 Sodium 136 mmol/L (137-145) L 06/29/18 11:30 Potassium 2.6 mmol/L (3.5-5.1) L* 06/29/18 18:23 Chloride 97 mmol/L (98-107) L 06/29/18 11:30 Carbon Dioxide 32 mmol/L (22-30) H 06/29/18 11:30 Anion Gap 7 mmol/L 06/29/18 11:30 BUN 4 mg/dL (7-17) L 06/29/18 11:30 Creatinine 0.41 mg/dL (0.52-1.04) L 06/29/18 11:30 Est GFR (CKD-EPI)AfAm >90 (>60 ml/min/1.73 sqM) 06/29/18 11:30 Est GFR (CKD-EPI)NonAf >90 (>60 ml/min/1.73 sqM) 06/29/18 11:30 Glucose 99 mg/dL (74-99) 06/29/18 11:30 POC Glucose (mg/dL) 175 mg/dL (75-99) H 06/23/18 15:55 POC Glu Electrical Engineering Intern ID Mariela Neri 06/23/18 15:55 Lactic Ac Sepsis Rflx Y 06/23/18 16:05 Plasma Lactic Acid Anjel 0.9 mmol/L (0.7-2.0) 06/24/18 03:37 Calcium 6.7 mg/dL (8.4-10.2) L 06/29/18 11:30 Magnesium 0.6 mg/dL (1.6-2.3) L* 06/29/18 11:30 Total Bilirubin 0.5 mg/dL (0.2-1.3) 06/29/18 11:30 AST 15 U/L (14-36) 06/29/18 11:30 ALT 21 U/L (9-52) 06/29/18 11:30 Alkaline Phosphatase 41 U/L (38-126) 06/29/18 11:30 Total Creatine Kinase 127 U/L (30-135) 06/23/18 15:22 CK-MB (CK-2) 4.1 ng/mL (0.0-2.4) H 06/23/18 15:22 CK-MB (CK-2) Rel Index 3.2 06/23/18 15:22 Troponin I 0.091 ng/mL (0.000-0.034) H* 06/24/18 03:37 C-Reactive Protein 70.8 mg/L (<10.0) H 06/29/18 08:42 Total Protein 5.1 g/dL (6.3-8.2) L 06/29/18 11:30 Albumin 2.6 g/dL (3.5-5.0) L 06/29/18 11:30 Urine Color Dark Brown 06/23/18 15:45 Urine Appearance Clear (Clear) 06/23/18 15:45 Urine pH 6.0 (5.0-8.0) 06/23/18 15:45 Ur Specific [place] 1.021 (1.001-1.035) 06/23/18 15:45 Urine Protein 2+ (Negative) H 06/23/18 15:45 Urine Glucose (UA) Negative (Negative) 06/23/18 15:45 Urine Ketones Negative (Negative) 06/23/18 15:45 Urine Blood Negative (Negative) 06/23/18 15:45 Urine Nitrite Negative (Negative) 06/23/18 15:45 Urine Bilirubin Negative (Negative) 06/23/18 15:45 Urine Urobilinogen 2.0 mg/dL (<2.0) 06/23/18 15:45 Ur Leukocyte Esterase Negative (Negative) 06/23/18 15:45 Urine WBC <1 /hpf (0-5) 06/23/18 15:45 Salicylates <1.0 mg/dL 06/23/18 15:22 Urine Opiates Screen Detected (NotDetected) H 06/23/18 15:45 Ur Oxycodone Screen Not Detected (NotDetected) 06/23/18 15:45 Urine Methadone Screen Not Detected (NotDetected) 06/23/18 15:45 Ur Propoxyphene Screen Not Detected (NotDetected) 06/23/18 15:45 Acetaminophen <10.0 ug/mL 06/23/18 15:22 Ur Barbiturates Screen Not Detected (NotDetected) 06/23/18 15:45 U Tricyclic Antidepress Not Detected (NotDetected) 06/23/18 15:45 Ur Phencyclidine Scrn Not Detected (NotDetected) 06/23/18 15:45 Ur Amphetamines Screen Not Detected (NotDetected) 06/23/18 15:45 U Methamphetamines Scrn Not Detected (NotDetected) 06/23/18 15:45 U Benzodiazepines Scrn Not Detected (NotDetected) 06/23/18 15:45 Urine Cocaine Screen Not Detected (NotDetected) 06/23/18 15:45 U Marijuana (THC) Screen Not Detected (NotDetected) 06/23/18 15:45 Serum Alcohol <10 mg/dL 06/23/18 15:22 Microbiology 06/23/18 15:22 Blood Blood Culture - Final No Growth after 144 hours 06/23/18 15:45 Urine,Catheterized Urine Culture - Final Assessment and Plan (1) Altered mental status Narrative/Plan: With the markedly elevated white blood cell count at admission and her encephalopathy concerns underlying sepsis and will continue current antibiotic therapy with daptomycin and Azactam pending blood culture results and evaluation of her neurological status. Fortunately he doesn't seem to have a trend to improve her leukocytosis. Troponins are normal being followed by cardiology. 06/25/2018 patient remains with confusion, seems comfortable. Workup is in process. History of leukocytosis and lactic acidosis is resolving. Cultures will hopefully clarify the antibiotic needs currently on daptomycin and Azactam based on her many ALLERGIES and histories of infection. 06/28/2018 patient still has significant confusion. Patient's son is wondering of psychiatry as needed. Primary services requested that consult. Patient continues to have significant encephalopathy concerns to underlying infection as etiology. No positive cultures this time. She seems to be tolerating the current daptomycin and Azactam therapy well. Her leukocytosis and lactic acidosis rapidly resolved with admission antibiotics and hydration. No distinct infections found. A tagged white blood cell study is requested to evaluate any other site of deep infection particularly of the implanted hardware. 06/29/2018 patient remains confused. His been seen by psychiatry revealing evidence of a metabolic encephalopathy. Continue to be followed with neurology. Cultures are negative but prior cultures reviewed and she is on daptomycin and Azactam while 5 cultures are pending. Her leukocytosis and acidosis have resolved. Tagged white cell study is pending to further evaluate the possibility of deep-seated infection. Current Visit: Yes Status: Acute Code(s): R41.82 - ALTERED MENTAL STATUS, UNSPECIFIED SNOMED Code(s): 818260668
--- NOTE | 2018-06-29 22:19 | PN ---
PROGRESS NOTE DATE OF SERVICE: 06/29/2018 This 68-year-old woman who was admitted with acute sepsis also had multiple medical issues including acute on chronic metabolic encephalopathy. Patient also not cooperative in the PT/OT well. The social media developer also working on the guardianship issues also. Currently the patient is confused. Multiple consultants are following the patient. The patient on broad IV antibiotics. The white count is 8.7. The patient has severe hypokalemia. The patient also has severe hypomagnesemia also. PAST MEDICAL HISTORY: Reviewed. REVIEW OF SYMPTOMS: Review of systems could not be taken. The patient is confused. CURRENT MEDICATIONS ARE: 1. Tylenol 650 q.6h p.r.n. 2. Ventolin 2.5 q.i.d. 3. Norvasc 5 mg p.o. daily. 4. Aspirin. 5. Aztreonam 2 g IV q.8h. 6. Sinemet q.h.s. 7. Daptomycin 500 mg 24 hours. 8. Cymbalta. 9. Apresoline. 10.Synthroid. 11.Lopressor. 12.Protonix. 13.Vitamin B1. 14.Valtrex. PHYSICAL EXAM: Patient is conscious, confused. Pulse 88, blood pressure 143/56, respiration 18, temperature 98.2, pulse ox 98% on room air. HEENT: Conjunctivae normal. Oral mucosa moist. NECK: No jugular venous distention. CARDIOVASCULAR: S1, S2 muffled. RESPIRATIONS: Breath sounds diminished in the bases. A few scattered rhonchi. No crackles. Abdomen is soft, nontender. LEGS are no edema. No swelling. NERVOUS SYSTEM: Diffusely weak. LAB STUDIES: WBC 8.7, hemoglobin 10.4 and sodium 130, potassium 2. Magnesium 0.6. ASSESSMENT: 1. Acute sepsis present on admission, etiology unknown. Rule out infected pain pump. 2. Continue on daptomycin and Aztreonam. 3. Severe hypokalemia. 4. Severe hypomagnesemia. 5. Change in mental status metabolic encephalopathy, acute on chronic, multifactorial. 6. Lactic acidosis. 7. Mildly elevated troponin, possibly secondary to sepsis. Cardiology following. 8. Fibromyalgia with chronic pain syndrome. 9. Hyperlipidemia. 10.Sleep apnea. 11.History of bariatric surgery. 12.History of diabetes insipidus with chronic hyponatremia. 13.Hypokalemia. 14.FULL CODE. RECOMMENDATIONS AND DISCUSSION: In this 68-year-old woman who presented with multiple medical issues, at this time, I recommend continue the current medications, management and symptomatic treatment. Potassium and magnesium supplementation. I would also recommend PT/OT evaluation. Continue monitoring and the possibility of ECF rehab is a possibility. If the patient is unable to cooperate and ECF is not an option, I would recommend either AFC home or assisted living, which the family has to work out with the community case manager and social media developer team for patient safety and continued evaluation and treatment also. The overall prognosis extremely guarded. Dr. Dyson has recommended to continue the pain pump at this time and continue the antibiotic. Outpatient arrangements will be made in consultation with infectious disease. Please note the cultures are negative so far. Repeat lytes will be ordered. Please see orders for details. MMODL / IJN: [id number] /
[2018-06-29] MEDS: ONDANSETRON 4 MG/2 ML VIAL IVP PRN (23:16)
[2018-06-30] MEDS: AZTREONAM 2 GM in SODIUM CHLORIDE 0.9% 100 ML IVPB SCH ×3 (00:20→16:37)
[2018-06-30] MEDS: SODIUM CHLORIDE 0.9% 1,000 ML IV SCH ×3 (01:30→21:16)
[2018-06-30] MEDS: LEVOTHYROXINE 88 MCG TAB PO SCH (05:49)
--- NOTE | 2018-06-30 07:06 | P.CNNES ---
History of Present Illness Consult date: 06/28/18 Requesting physician: Samuel Dunn Reason for Consult: Pain Pump Management Chief complaint: Sepsis, Confusion History of Present Illness: 06/28/18 @ 12:15 Hrs: Neurology/pain management was requested to consult on this 68-year-old female who is a intrathecal pain pump patient in our practice. Patient is hospitalized for bacteremia/sepsis and confusion and hospitalist/inpatient care team is requesting patient's pump be decreased to minimal dosing to facilitate assessment and management of his mental status with minimum intrathecal medication at this time. Provider was requested to the floor to assess patient's pump, adjust dosing to minimum required dosing to facilitate operative management of pump. On contact, patient was alert and oriented 1, son was at the bedside. Patient was in no acute distress. Review of Systems systems not reported in HPI are negative. Past Medical History Past Medical History: Asthma, Cancer, Chest Pain / Angina, CVA/TIA, Fibromyalgia , GERD/Reflux, Hyperlipidemia, Hypertension, Osteoarthritis (OA), Renal Disease , Sleep Apnea/CPAP/BIPAP, Thyroid Disorder Additional Past Medical History / Comment(s): Pt recently admitted to [facility] on 03/26/18 with UTI/sepsis, hyponatremia/SIADH, hypomagnesemia, hypokalemia and bacterial MRSA. Other HX: Frequent falls, bilateral weakness from CVAs and loss of equalibrium-also had bilateral facial droops that resolve, pt states she has had 6 CVAs total, TIAs, L leg bone cancer and entire leg has titanium rods, R knee arthroplasty-pt fell and damaged artificial joint, chronic back pain, carpal tunnel syndrome bilateral elbows/shoulders, DJD, diabetes insipidus, LAUREN with no device since weight loss, CKD stage III, [place] bilaterally, anemia. History of Any Multi-Drug Resistant Organisms: MRSA Date of last positivie culture/infection: 03/26/18 MDRO Source:: BLOOD Past Surgical History: Appendectomy, Back Surgery, Bariatric Surgery, Cholecystectomy, Heart Catheterization, Hysterectomy, Joint Replacement, Orthopedic Surgery, Tubal Ligation Additional Past Surgical History / Comment(s): 04/02/18 PICC line for ABX, Lap band with removal, gastric sleeve, L leg titanium rods, R total knee arthroplasty, bilateral wrist carpal tunnel releases, R great toe surgery to remove a growth, lithotripsy, pain stimulator-nonfunctioning, pain clinic procedures, bilateral cataract removals. Past Anesthesia/Blood Transfusion Reactions: Previous Problems w/ Anesthesia Additional Past Anesthesia/Blood Transfusion Reaction / Comment(s): Slow to wake. Past Psychological History: Anxiety, Depression, Panic Disorder Smoking Status: Never smoker Past Alcohol Use History: None Reported Past Drug Use History: None Reported - Past Family History Father Additional Family Medical History / Comment(s): pt was 7 years old when her father was murdered/ from w Mother Family Medical History: CVA/TIA Daughter(s) Family Medical History: Deep Vein Thrombosis (DVT) Additional Family Medical History / Comment(s): dvt Medications and Allergies Home Medications Medication Instructions Recorded Confirmed Type Clopidogrel [Plavix] 75 mg PO DAILY 01/04/14 06/23/18 History DULoxetine HCL [Cymbalta] 60 mg PO BID 01/04/14 06/23/18 History Levothyroxine Sodium [Synthroid] 88 mcg PO QAM 01/04/14 06/23/18 History Aspirin 81 mg PO HS 02/07/14 06/23/18 History valACYclovir HCL [Valtrex] 1,000 mg PO DAILY PRN 02/07/14 06/23/18 History Vitamin B Complex 1 cap PO DAILY 02/21/15 06/23/18 History Biotin 5 mg PO DAILY 04/26/15 06/23/18 History Ascorbic Acid [Vitamin C] 1,000 mg PO DAILY 05/13/16 06/23/18 History Carbidopa-Levodopa 25-100 mg 1 tab PO HS 03/26/18 06/23/18 History [Sinemet 25-100 mg] Cholecalciferol [Vitamin D3] 5,000 unit PO DAILY 03/26/18 06/23/18 History Levalbuterol Hfa Inhaler [Xopenex 2 puff INHALATION RT-Q6H PRN 03/26/18 History Hfa Inhaler] Losartan Potassium 100 mg PO DAILY 03/26/18 06/23/18 History Folic Acid 1 mg PO DAILY@1200 #30 tab 04/02/18 06/23/18 Rx Thiamine [Vitamin B-1] 100 mg PO DAILY@1200 #30 tab 04/02/18 06/23/18 Rx Albuterol Nebulized [Ventolin 2.5 mg INHALATION RT-QID PRN 06/23/18 06/23/18 History Nebulized] Cyanocobalamin (Vitamin B-12) 1,000 mcg PO DAILY 06/23/18 06/23/18 History [Vitamin B-12] Fluticasone Nasal [place] [Flonase 1 spray EA NOSTRIL DAILY 06/23/18 06/23/18 History Nasal [place]] Metoprolol Tartrate [Lopressor] 50 mg PO TID 06/23/18 06/23/18 History amLODIPine [Norvasc] 2.5 mg PO DAILY 06/23/18 06/23/18 History Allergies Allergy/AdvReac Type Severity Reaction Status Date / Time aripiprazole [From Abilify] Allergy Anaphylaxis Verified 06/23/18 16:23 baclofen Allergy Anaphylaxis Verified 06/23/18 16:23 butalbital [From Fioricet] Allergy Rash/Hives Verified 06/23/18 16:23 cefadroxil hydrate Allergy Rash/Hives Verified 06/23/18 16:23 [From Duricef] cefazolin sodium Allergy Anaphylaxis Verified 06/23/18 16:23 [From Kefzol] cephalexin monohydrate Allergy Anaphylaxis Verified 06/23/18 16:23 [From Keflex] ciprofloxacin [From Cipro] Allergy Swelling Verified 06/23/18 16:23 OF THROAT ,RASH AND HIVES ciprofloxacin HCl Allergy Rash/Hives, Verified 06/23/18 16:23 [From Cipro] SWELLING OF THROAT clindamycin HCl Allergy Unknown Verified 06/23/18 16:23 [From Cleocin] clindamycin palmitate HCl Allergy Unknown Verified 06/23/18 16:23 [From Cleocin] clindamycin phosphate Allergy Unknown Verified 06/23/18 16:23 [From Cleocin] dexamethasone [From Decadron] Allergy Anaphylaxis Verified 06/23/18 16:23 dexamethasone sod phosphate Allergy Anaphylaxis Verified 06/23/18 16:23 [From Decadron] ,RASH divalproex sodium Allergy Rash/Hives Verified 06/23/18 16:23 [From Depakote] hydroxyzine HCl [From Atarax] Allergy Unknown Verified 06/23/18 16:23 ibuprofen [From Motrin] Allergy RASH Verified 06/23/18 16:23 ,ITCHING SWELLING OF THROAT influenza virus vaccine, Allergy Anaphylaxis Verified 06/23/18 16:23 specific [Influenza Virus Vacc,Specific] Iodinated Contrast- Oral and Allergy Anaphylaxis Verified 06/23/18 16:23 IV Dye ketorolac tromethamine Allergy Chest Pain Verified 06/23/18 16:23 [From Toradol] lidocaine HCl Allergy Anaphylaxis Verified 06/23/18 16:23 [From Xylocaine] lisinopril Allergy Swelling Verified 06/23/18 16:23 meperidine HCl [From Demerol] Allergy Rash/Hives Verified 06/23/18 16:23 Milk Containing Products Allergy ABDOMINAL Verified 06/23/18 16:23 PAIN NAUSEA AND VOMITING morphine Allergy Vomiting Verified 06/23/18 16:23 Mushroom Allergy Anaphylaxis Verified 06/23/18 16:23 nortriptyline HCl Allergy Unknown Verified 06/23/18 16:23 [From Pamelor] omalizumab [From Xolair] Allergy Anaphylaxis Verified 06/23/18 16:23 Penicillins Allergy Rash/Hives Verified 06/23/18 16:23 pregabalin [From Lyrica] Allergy Rash/Hives Verified 06/23/18 16:23 procaine HCl [From Novocain] Allergy Unknown Verified 06/23/18 16:23 shellfish derived Allergy Anaphylaxis Verified 06/23/18 16:23 sulfamethoxazole Allergy Unknown Verified 06/23/18 16:23 [From Septra] tetracycline [Tetracycline] Allergy Rash/Hives Verified 06/23/18 16:23 theophylline anhydrous Allergy Unknown Verified 06/23/18 16:23 [From Joel-Dur] triamcinolone Allergy Anaphylaxis Verified 06/23/18 16:23 trimethoprim [From Septra] Allergy RASH, Verified 06/23/18 16:23 ITCHING vancomycin Allergy ITCHING Verified 06/23/18 16:23 ,HIVES wheat Allergy Rash/Hives Verified 06/23/18 16:23 yellow dye Allergy Anaphylaxis Verified 06/23/18 16:23 erythromycin base AdvReac Rash/Hives Verified 06/23/18 16:23 fentanyl [From Duragesic] AdvReac Unknown Verified 06/23/18 16:23 NSAIDS (Non-Steroidal AdvReac Unknown Verified 06/23/18 16:23 Anti-Inflamma verapamil AdvReac Rash/Hives Verified 06/23/18 16:23 PAPER TAPE Allergy Rash/BLISTE Uncoded 04/27/18 13:31 RS PERSERATIVE IN ALBUTEROL Allergy Dyspnea Uncoded 04/27/18 13:31 INHALER PU steroids Allergy Rash/Hives Uncoded 04/27/18 13:31 WHITE SUTURE Allergy Swelling Uncoded 04/27/18 13:31 Physical Examination - Vital Signs Vital Signs: Vital Signs Temp Pulse Resp BP Pulse Ox 06/29/18 23:00 97.6 F 78 20 110/67 96 06/29/18 16:00 18 06/29/18 15:00 98.8 F 88 18 153/67 98 06/29/18 07:55 20 Intake and Output 06/29/18 06/29/18 06/30/18 14:59 22:59 06:59 Intake Total 200 100 Output Total 2 2 Balance 198 98 Intake: Oral 200 100 Output: Urine/Stool Mix 2 2 Other: Voiding Method Bedside Commode Bedside Commode Bedside Commode Diaper Diaper Diaper Incontinent Incontinent Incontinent # Voids 3 Weight 45.1 kg General appearance: Alert & oriented x1 no apparent distress. Head: Atraumatic, normocephalic, normal inspection Eyes: PERRLA, EOMI. Absent scleral icterus, conjunctival injection, nystagmus, periorbital swelling. Ear, nose and throat: Normal exam, mucous membranes moist Neck: Normal inspection, absent tenderness, lymphadenopathy. Respiratory: No increased work of breathing Cardiovascular: Regular rate, rhythm GI/abdominal: No guarding, no rigidity Extremities: moves all extremities Neurological: no lateralizing weakness no seizure activity noted on physical exam no pronator drift and no nystagmus. Strength: moves 4 extremities Sensation: present in all 4 extremities Psychological: confused Results - Laboratory Findings CBC and BMP: 06/29/18 11:30 06/29/18 18:23 Abnormal Lab Findings: Abnormal Labs 06/23/18 06/23/18 06/23/18 15:22 15:22 15:22 WBC 19.6 H RBC 5.47 H Hgb Hct MCV Plt Count 474 H Neutrophils # 17.3 H ESR APTT Sodium Potassium 3.2 L Chloride 91 L Carbon Dioxide BUN 25 H Creatinine Glucose 185 H POC Glucose (mg/dL) Plasma Lactic Acid Anjel Calcium 10.6 H Magnesium AST 42 H CK-MB (CK-2) 4.1 H Troponin I 0.086 H* C-Reactive Protein Total Protein Albumin Urine Protein Urine Opiates Screen 06/23/18 06/23/18 06/23/18 15:22 15:22 15:45 WBC RBC Hgb Hct MCV Plt Count Neutrophils # ESR APTT 18.3 L Sodium Potassium Chloride Carbon Dioxide BUN Creatinine Glucose POC Glucose (mg/dL) Plasma Lactic Acid Anjel 3.6 H* Calcium Magnesium AST CK-MB (CK-2) Troponin I C-Reactive Protein Total Protein Albumin Urine Protein 2+ H Urine Opiates Screen Detected H 06/23/18 06/23/18 06/24/18 15:55 19:14 03:37 WBC 12.0 H RBC Hgb 11.0 L D Hct MCV Plt Count Neutrophils # 9.6 H ESR APTT Sodium Potassium Chloride Carbon Dioxide BUN Creatinine Glucose POC Glucose (mg/dL) 175 H Plasma Lactic Acid Anjel Calcium Magnesium AST CK-MB (CK-2) Troponin I 0.101 H* C-Reactive Protein Total Protein Albumin Urine Protein Urine Opiates Screen 06/24/18 06/24/18 06/25/18 03:37 03:37 08:17 WBC 12.0 H RBC Hgb 11.3 L Hct 33.2 L MCV Plt Count Neutrophils # ESR APTT Sodium Potassium 3.2 L Chloride Carbon Dioxide BUN 23 H Creatinine Glucose 102 H POC Glucose (mg/dL) Plasma Lactic Acid Anjel Calcium Magnesium AST CK-MB (CK-2) Troponin I 0.091 H* C-Reactive Protein Total Protein 5.4 L Albumin 2.9 L Urine Protein Urine Opiates Screen 06/25/18 06/25/18 06/29/18 08:17 10:55 08:42 WBC RBC Hgb Hct MCV Plt Count Neutrophils # ESR 39 H APTT Sodium 134 L Potassium 2.4 L* 3.0 L Chloride Carbon Dioxide BUN Creatinine 0.51 L Glucose POC Glucose (mg/dL) Plasma Lactic Acid Anjel Calcium 8.1 L Magnesium AST CK-MB (CK-2) Troponin I C-Reactive Protein Total Protein Albumin Urine Protein Urine Opiates Screen 06/29/18 06/29/18 06/29/18 08:42 11:30 11:30 WBC RBC Hgb 10.4 L Hct 31.4 L MCV 79.6 L Plt Count Neutrophils # ESR APTT Sodium 136 L Potassium 2.0 L* Chloride 97 L Carbon Dioxide 32 H BUN 4 L Creatinine 0.41 L Glucose POC Glucose (mg/dL) Plasma Lactic Acid Anjel Calcium 6.7 L Magnesium AST CK-MB (CK-2) Troponin I C-Reactive Protein 70.8 H Total Protein 5.1 L Albumin 2.6 L Urine Protein Urine Opiates Screen 06/29/18 06/29/18 11:30 18:23 WBC RBC Hgb Hct MCV Plt Count Neutrophils # ESR APTT Sodium Potassium 2.6 L* Chloride Carbon Dioxide BUN Creatinine Glucose POC Glucose (mg/dL) Plasma Lactic Acid Anjel Calcium Magnesium 0.6 L* AST CK-MB (CK-2) Troponin I C-Reactive Protein Total Protein Albumin Urine Protein Urine Opiates Screen Assessment and Plan (1) Adjustment and management of infusion pump Current Visit: Yes Status: Acute Code(s): Z45.1 - ENCOUNTER FOR ADJUSTMENT AND MANAGEMENT OF INFUSION PUMP SNOMED Code(s): 605295681 (2) Medication management Current Visit: Yes Status: Acute Code(s): Z79.899 - OTHER NURSING HOME (CURRENT ) DRUG THERAPY SNOMED Code(s): 899339466 (3) Chronic pain Current Visit: Yes Status: Acute Code(s): G89.29 - OTHER CHRONIC PAIN SNOMED Code(s): 33730962 (4) Causalgia of bilateral lower limbs Current Visit: Yes Status: Acute Code(s): G57.73 - CAUSALGIA OF BILATERAL LOWER LIMBS SNOMED Code(s): 420962172 (5) Lumbar degenerative disc disease Current Visit: No Status: Chronic Code(s): M51.36 - OTHER INTERVERTEBRAL DISC DEGENERATION, LUMBAR REGION SNOMED Code(s): 66315520 Plan: PROCEDURE NOTE Patient Name: Priya Waterman Date of : 46 Date of Service: 06/28/18 Procedure: Intrathecal Pump Reprogramming Medication(s): Dilaudid 10.0 mg per mL Indication: Medication Adjustment or Titration Consent: The procedure was explained to the patient in details. The risks and benefits and the indication for the procedure were provided to the patient verbally. The possible complications were discussed, which include, but are not limited to, infection, bleeding, increased pain, nerve damage, skin discoloration, and . There were no assurances or guarantees given to the patient as to the result of the procedure. 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 Description of Procedure: Pump reprogramming or titration was performed using Ge[employer] Intrathecal Pump hand held electronic device. Clean technique was used. Patient was in room 409 at [facility], staff requested patient s intrathecal pump be interrogated for operability as well as decrease dose to minimal operable dose. Preparation of the Patient: Anatomical landmarks were used to identify the intrathecal pain pump. Patients device was interrogated and all electronic pre- reprogramming settings were reviewed. Provider confirmed patient medications. Reprogramming of the pump: Programming was performed. Alarm volume was confirmed. Changes were made in daily dosage and documented. Next refill date related by the computer was confirmed. The date was noted and patient was informed in writing via pump interrogation summary document. Patient was verbally advised a copy of reprogramming note would be placed in patients chart and a second copy would be left for patient at discharge. New Dose: 0.480 mg/day Change: 20% decrease Discharge of patient: Patient was observed for hemodynamic changes and in the care of nursing personnel Complications: None. Estimated Blood Loss: None. Disposition: The patient tolerated the procedure well. Patient to be monitored by staff for any other concerns related to intrathecal pain pump. Staff to advise our office if any concerns occur. Provider to follow on an as- needed basis. If provider is needed for further workup please contact our office at [phone] Patient was advised not to operate a motor vehicle or heavy machinery until patient is certain how the increased medication affects normal daily activities. Patient expressed understanding. Follow up post discharge for reassessment and reinterrogation I have discussed the plan of care with the physician prior to implementation and he agrees with the plan as implemented. Procedure was done by THAIS Light, supervising physician noted below Pepe Dyson M.D. Neurology - Board Certified Diplomat of [employer], Member of [employer]
[2018-06-30] MEDS: DULoxetine HCL 60 MG CAPSULE.DR PO SCH ×2 (09:05→21:16)
[2018-06-30] MEDS: CLOPIDOGREL 75 MG TAB PO SCH (09:05)
[2018-06-30] MEDS: METOPROLOL TARTRATE 50 MG TAB PO SCH ×3 (09:05→21:16)
[2018-06-30] MEDS: FLUTICASONE 50MCG/SPRAY NASAL 16GM EA NOSTRIL SCH (09:05)
[2018-06-30] MEDS: amLODIPine 5 MG TAB PO SCH (09:06)
[2018-06-30] MEDS: PANTOPRAZOLE 40 MG TABLET PO SCH (09:06)
[2018-06-30] MEDS: DRONABINOL 2.5 MG CAP PO SCH ×2 (09:29→16:57)
[2018-06-30 10:29] LABS: Basophils % (A) 0 %; Eosinophils # (A) 0.3 k/uL (0-0.7); Eosinophils % (A) 4 %; HGB 9.9 gm/dL (11.4-16.0); Lymphocytes # (A) 1.5 k/uL (1.0-4.8); Lymphocytes % (A) 21 %; MCH 27.4 pg (25.0-35.0); MCHC 33.1 g/dL (31.0-37.0); MCV 82.7 fL (80.0-100.0); Mean Platelet Volume 7.2; Monocytes # (A) 0.3 k/uL (0-1.0); Monocytes % (A) 5 %; Neutrophils % (A) 69 %; Platelet Count 289 k/uL (150-450); RBC 3.63 m/uL (3.80-5.40); RDW 14.1 % (11.5-15.5); WBC 7.3 k/uL (3.8-10.6)
[2018-06-30 10:48] LABS: ALT 13 U/L (9-52); AST 15 U/L (14-36); Albumin 2.6 g/dL (3.5-5.0); Alkaline Phosphatase 39 U/L (38-126); Anion Gap 9 mmol/L; Blood Urea Nitrogen 5 mg/dL (7-17); Calcium 7.2 mg/dL (8.4-10.2); Carbon Dioxide 23 mmol/L (22-30); Chloride 106 mmol/L (98-107); Glucose 102 mg/dL (74-99); Magnesium 1.4 mg/dL (1.6-2.3); Potassium 4.3 mmol/L (3.5-5.1); Sodium 138 mmol/L (137-145); Total Bilirubin 0.4 mg/dL (0.2-1.3); Total Protein 5.1 g/dL (6.3-8.2)
[2018-06-30] MEDS ORDERED: Magnesium Replacement Protocol 1 EACH MISC MISCELLANE PRN (11:14)
[2018-06-30] MEDS: MAGNESIUM SULFATE-D5W PMX 1 GM in DEXTROSE/WATER 1 100ML.BAG IVPB SCH ×3 (11:39→14:49)
[2018-06-30] MEDS: THIAMINE 100 MG TAB PO SCH (11:58)
--- NOTE | 2018-06-30 13:50 | PN ---
PROGRESS NOTE DATE OF SERVICE: 06/30/2018 This 68-year-old woman was admitted with acute sepsis, is being closely monitored. The patient had some change in mental status. The patient is on broad-spectrum IV antibiotics. The patient is apparently cooperating with PT, OT at this time. Rehab is being planned at this time. No chest pain or palpitations. No fever. PHYSICAL EXAMINATION: Alert and oriented x1. Pulse 87, blood pressure 109/70, respiration 20, temperature 97.6, pulse ox 95% on room air. HEENT: Conjunctivae normal. NECK: No JVD. CARDIOVASCULAR: S1 and S2 muffled. RESPIRATORY: Breath sounds are diminished at the bases. A few scattered rhonchi. No crackles. Abdomen is soft, nontender. EXTREMITIES: No edema, no swelling. NERVOUS SYSTEM: Diffusely weak. LAB STUDIES: WBC 7.3, hemoglobin 9.9, and magnesium is 1.4, potassium is 4.3. ASSESSMENT: 1. Acute sepsis on admission, etiology unknown. Rule out infected pain pump. 2. Continue on daptomycin and Azactam. 3. Severe hypokalemia. 4. Severe hypomagnesemia. 5. Change in mental status with metabolic encephalopathy, acute on chronic, multifactorial. 6. Lactic acidosis. 7. Mildly elevated troponin, possibly secondary to sepsis. Cardiology following. 8. Fibromyalgia with chronic pain syndrome. 9. Hyperlipidemia. 10.Sleep apnea. 11.History of bariatric surgery. 12.History of diabetes insipidus with chronic hyponatremia. 13.Hypokalemia. 14.FULL CODE. RECOMMENDATIONS AND DISCUSSION: Recommend to continue current medications. Continue symptomatic treatment. Otherwise at this time I recommend follow closely with multiple consultants including Psychiatry, Infectious Disease, Neurology, PT, OT evaluation, possible ECF rehab. Further recommendations to follow. Prognosis guarded. MMODL / IJN: [id number] /
--- NOTE | 2018-06-30 14:04 | NM ---
EXAMINATION TYPE: NM WBC whole body DATE OF EXAM: 06/30/2018 COMPARISON: CT 07/24/2017 HISTORY: Infection of pump TECHNIQUE: Following administration of 24 mCi Tc99m Ceretec. Images obtained 4 hour(s) and 24 hour( s) post injection. FINDINGS: Normal physiological tracer activity is noted in the liver and spleen and in the bone marrow of the a xial and appendicular skeleton. IMPRESSION: Normal white blood cell scan. No evidence for abnormal tracer activity.
[2018-06-30] MEDS: DAPTOmycin 500 MG in SODIUM CHLORIDE 0.9% 50 ML IVPB SCH (17:49)
[2018-06-30] MEDS: ASPIRIN 81 MG PO SCH (21:15)
[2018-06-30] MEDS: CARBIDOPA-LEVODOPA 25-100 MG 1 EACH TAB PO SCH (21:15)
[2018-07-01] MEDS: AZTREONAM 2 GM in SODIUM CHLORIDE 0.9% 100 ML IVPB SCH (00:28)
[2018-07-01] MEDS: LEVOTHYROXINE 88 MCG TAB PO SCH (06:31)
[2018-07-01 09:02] LABS: Basophils % (A) 0 %; Eosinophils # (A) 0.5 k/uL (0-0.7); Eosinophils % (A) 5 %; HCT 33.8 % (34.0-46.0); HGB 10.8 gm/dL (11.4-16.0); Lymphocytes # (A) 2.6 k/uL (1.0-4.8); Lymphocytes % (A) 30 %; MCH 26.8 pg (25.0-35.0); MCV 83.8 fL (80.0-100.0); Mean Platelet Volume 7.2; Monocytes # (A) 0.3 k/uL (0-1.0); Monocytes % (A) 4 %; Neutrophils % (A) 59 %; Platelet Count 308 k/uL (150-450); RBC 4.04 m/uL (3.80-5.40); RDW 14.2 % (11.5-15.5); WBC 8.4 k/uL (3.8-10.6)
[2018-07-01 09:11] LABS: ALT 18 U/L (9-52); AST 13 U/L (14-36); Albumin 2.8 g/dL (3.5-5.0); Alkaline Phosphatase 47 U/L (38-126); Anion Gap 8 mmol/L; Blood Urea Nitrogen 6 mg/dL (7-17); Calcium 7.8 mg/dL (8.4-10.2); Carbon Dioxide 23 mmol/L (22-30); Chloride 105 mmol/L (98-107); Glucose 78 mg/dL (74-99); Magnesium 1.6 mg/dL (1.6-2.3); Potassium 4.4 mmol/L (3.5-5.1); Sodium 136 mmol/L (137-145); Total Bilirubin 0.5 mg/dL (0.2-1.3); Total Protein 5.4 g/dL (6.3-8.2)
[2018-07-01] MEDS: PANTOPRAZOLE 40 MG TABLET PO SCH (09:18)
[2018-07-01] MEDS: METOPROLOL TARTRATE 50 MG TAB PO SCH ×2 (09:18→16:43)
[2018-07-01] MEDS: FLUTICASONE 50MCG/SPRAY NASAL 16GM EA NOSTRIL SCH (09:18)
[2018-07-01] MEDS: THIAMINE 100 MG TAB PO SCH (09:18)
[2018-07-01] MEDS: amLODIPine 5 MG TAB PO SCH (09:18)
[2018-07-01] MEDS: DRONABINOL 2.5 MG CAP PO SCH ×2 (09:18→16:53)
[2018-07-01] MEDS: CLOPIDOGREL 75 MG TAB PO SCH (09:18)
[2018-07-01] MEDS: DULoxetine HCL 60 MG CAPSULE.DR PO SCH (09:18)
[2018-07-01] MEDS: SODIUM CHLORIDE 0.9% 1,000 ML IV SCH (09:24)
[2018-07-01 09:53] VITALS: RESP 16
--- NOTE | 2018-07-01 15:12 | P.DS ---
Providers Date of admission: 06/23/18 16:46 Expected date of discharge: 07/01/18 Attending physician: Mag Dunn Consults: 06/23/18 16:52 Consult Physician Routine Consulting Provider: Mendez Krishna Consult Reason/Comments: Sepsis, concern for bacteremia Do you want consulting provider notified?: Already Contacted 06/23/18 18:25 Consult Physician Routine Consulting Provider: Oscar Wheatley Consult Reason/Comments: Elevated troponin Do you want consulting provider notified?: Yes 06/24/18 11:54 Consult Physician Routine Consulting Provider: Massiel De Los Santos Consult Reason/Comments: AMS Do you want consulting provider notified?: Yes 06/28/18 13:25 Consult Physician Routine Consulting Provider: Pepe Dyson Consult Reason/Comments: pain pump evaluation Do you want consulting provider notified?: Already Contacted 06/28/18 15:25 Consult Physician Routine Consulting Provider: Harley Ramos Consult Reason/Comments: depression, AMS Do you want consulting provider notified?: Yes Primary care physician: Kaur Cabello Hospital Course: Final Diagnosis: -Acute sepsis, present on admission, etiology unknown, infected pain pump less likely; maintain IV antibiotics as per infectious disease -Severe hypokalemia Hospital course: This is a 68-year-old female admitted with acute sepsis, mental status changes and multiple other medical issues. Evaluated by multiple consults, infectious disease, neurology, cardiology, psychiatry. Maintained on broad-spectrum IV antibiotics. Significant clinical improvement. Patient has been cleared by all consults for discharge. Patient is being [facility] in a stable condition with guarded prognosis. EXAM: GENERAL: Alert and oriented 2, no acute distress CV: S1, S2 muffled. LUNGS: Bilateral bases diminished, occasional scattered rhonchi. ABD: Soft, nontender, positive BS. NEURO: Generalized diffuse weakness , no focal deficits. The impression and plan of care has been dictated as directed. : I performed a history and examination of this patient, discussed the same with the dictator. I agree with the dictator's note ,documented as a scribe. Any additional findings or plans will be noted. Time taken: 35 minutes Patient Condition at Discharge: Stable Plan - Discharge Summary New Discharge Prescriptions: New amLODIPine [Norvasc] 5 mg PO DAILY tab Continue Levothyroxine Sodium [Synthroid] 88 mcg PO QAM Clopidogrel [Plavix] 75 mg PO DAILY DULoxetine HCL [Cymbalta] 60 mg PO BID valACYclovir HCL [Valtrex] 1,000 mg PO DAILY PRN PRN Reason: Cold Sores Aspirin 81 mg PO HS Vitamin B Complex 1 cap PO DAILY Biotin 5 mg PO DAILY Ascorbic Acid [Vitamin C] 1,000 mg PO DAILY Cholecalciferol [Vitamin D3] 5,000 unit PO DAILY Losartan Potassium 100 mg PO DAILY Levalbuterol Hfa Inhaler [Xopenex Hfa Inhaler] 2 puff INHALATION RT-Q6H PRN PRN Reason: Shortness Of Breath Carbidopa-Levodopa 25-100 mg [Sinemet 25-100 mg] 1 tab PO HS Folic Acid 1 mg PO DAILY@1200 #30 tab Thiamine [Vitamin B-1] 100 mg PO DAILY@1200 #30 tab Metoprolol Tartrate [Lopressor] 50 mg PO TID Fluticasone Nasal [place] [Flonase Nasal [place]] 1 spray EA NOSTRIL DAILY Cyanocobalamin (Vitamin B-12) [Vitamin B-12] 1,000 mcg PO DAILY Changed Albuterol Nebulized [Ventolin Nebulized] 2.5 mg INHALATION RT-QID #0 Discontinued amLODIPine [Norvasc] 2.5 mg PO DAILY Discharge Medication List Clopidogrel [Plavix] 75 mg PO DAILY 01/04/14 [History] DULoxetine HCL [Cymbalta] 60 mg PO BID 01/04/14 [History] Levothyroxine Sodium [Synthroid] 88 mcg PO QAM 01/04/14 [History] Aspirin 81 mg PO HS 02/07/14 [History] valACYclovir HCL [Valtrex] 1,000 mg PO DAILY PRN 02/07/14 [History] Vitamin B Complex 1 cap PO DAILY 02/21/15 [History] Biotin 5 mg PO DAILY 04/26/15 [History] Ascorbic Acid [Vitamin C] 1,000 mg PO DAILY 05/13/16 [History] Carbidopa-Levodopa 25-100 mg [Sinemet 25-100 mg] 1 tab PO HS 03/26/18 [History] Cholecalciferol [Vitamin D3] 5,000 unit PO DAILY 03/26/18 [History] Levalbuterol Hfa Inhaler [Xopenex Hfa Inhaler] 2 puff INHALATION RT-Q6H PRN 02/03 [History] Losartan Potassium 100 mg PO DAILY 03/26/18 [History] Folic Acid 1 mg PO DAILY@1200 #30 tab 04/02/18 [Rx] Thiamine [Vitamin B-1] 100 mg PO DAILY@1200 #30 tab 04/02/18 [Rx] Cyanocobalamin (Vitamin B-12) [Vitamin B-12] 1,000 mcg PO DAILY 06/23/18 [ History] Fluticasone Nasal [place] [Flonase Nasal [place]] 1 spray EA NOSTRIL DAILY 06/23/18 [History] Metoprolol Tartrate [Lopressor] 50 mg PO TID 06/23/18 [History] Albuterol Nebulized [Ventolin Nebulized] 2.5 mg INHALATION RT-QID #0 07/01/18 [ Rx] amLODIPine [Norvasc] 5 mg PO DAILY tab 07/01/18 [Rx] Follow up Appointment(s)/Referral(s): Dr. ELIZABETH Psychiatry [Other] - 1 Week Kaur Cabello MD [Primary Care Provider] - 1 Week (After DC from [facility]) Immanuel Carmona MD [REFERRING] - 1 Week Pepe Dyson MD [STAFF PHYSICIAN] - 10 Days Activity/Diet/Wound Care/Special Instructions: [facility] Antibx. as per ID. COnfirm Cardiology F/ U apt. prior to dc. DIet: cardiac Activity: as tolerated CBC,bmp in 3 days
[2018-07-01 16:11] VITALS: BP 136/74; PULSE 89; TEMP 97.2
== END 2018-07-01 18:01 | DRG 871 ==
LOC: EC 14:56 → 3SCARD 16:46 → EEVIPCON 16:46 → 4MS4W 06-24 22:11
PROVIDERS: ADMIT Internal Medicine; ATTEND Internal Medicine
DX: A41.9 Sepsis, unspecified organism (principal); G93.41 Metabolic encephalopathy; E87.2 Acidosis; I24.8 Other forms of acute ischemic heart disease; E22.2 Syndrome of inappropriate secretion of antidiuretic hormone; E87.6 Hypokalemia; M79.7 Fibromyalgia; G89.4 Chronic pain syndrome; G47.33 Obstructive sleep apnea (adult) (pediatric); E78.5 Hyperlipidemia, unspecified; E83.42 Hypomagnesemia; E86.0 Dehydration; F32.9 Major depressive disorder, single episode, unspecified; F41.0 Panic disorder [episodic paroxysmal anxiety]; G57.73 Causalgia of bilateral lower limbs; Z96.653 Presence of artificial knee joint, bilateral; K21.9 Gastro-esophageal reflux disease without esophagitis; J45.909 Unspecified asthma, uncomplicated; I34.0 Nonrheumatic mitral (valve) insufficiency; R29.6 Repeated falls; I12.9 Hypertensive chronic kidney disease with stage 1 through stage 4 chronic kidney disease, or unspecified chronic kidney disease; N18.3 Chronic kidney disease, stage 3 (moderate); H91.93 Unspecified hearing loss, bilateral; I10 Essential (primary) hypertension; M51.36 Other intervertebral disc degeneration, lumbar region; Z90.710 Acquired absence of both cervix and uterus; Z99.89 Dependence on other enabling machines and devices; Z98.84 Bariatric surgery status; Z85.830 Personal history of malignant neoplasm of bone; Z86.14 Personal history of Methicillin resistant Staphylococcus aureus infection; Z79.899 Other long term (current) drug therapy; Z79.02 Long term (current) use of antithrombotics/antiplatelets; I69.398 Other sequelae of cerebral infarction; Z98.51 Tubal ligation status; Z98.42 Cataract extraction status, left eye; Z98.41 Cataract extraction status, right eye; Z88.1 Allergy status to other antibiotic agents; Z91.041 Radiographic dye allergy status; Z91.011 Allergy to milk products; Z88.5 Allergy status to narcotic agent; Z91.013 Allergy to seafood; Z88.7 Allergy status to serum and vaccine; Z88.8 Allergy status to other drugs, medicaments and biological substances; Z91.018 Allergy to other foods; Z88.6 Allergy status to analgesic agent
CPT/HCPCS: 36415; 51701; 70450; 71046; 78806; 80048; 80053; 80306; 80320; 81001; 82550; 82553; 83520; 83605; 83735; 84132; 84484; 85025; 85027; 85610; 85652; 85730; 86140; 87040; 87086; 93005; 93306; 95816; 96361; 96365; 99291

== ENCOUNTER → 2018-09-24 | Outpatient (CLI) | payer MEDICARE ==
--- NOTE | 2018-09-25 13:07 | CT ---
EXAMINATION TYPE: CT hip RT wo con DATE OF EXAM: 09/24/2018 COMPARISON: 04/07/2018 right radiographs HISTORY: Right hip pain. CT DLP: 405.1 mGycm Automated exposure control for dose reduction was used. TECHNIQUE: Standard unenhanced CT of the right hip was obtained per department protocol. 3-D reformat aj images of the right hip were performed at a separate workstation. FINDINGS: There is moderate right femoral acetabular arthropathy. Few hyperdense fragments are seen along the r ight chondral labral junction of the superior acetabulum suspicious for chondral labral tear and/or i njury. There is mild diffuse demineralization of the right hip. Sacroiliac joint on the right is nonw idened. Mild degenerative changes of the lumbosacral junction are noted. No acute fracture or disloca tion of the right hip or visualized portions of the pelvis. Extensive atherosclerosis of the femoral artery and its branches are seen. No joint effusion on CT. Minimal subcutaneous edema seen overlying the greater trochanter. IMPRESSION: 1. MODERATE RIGHT FEMORAL ACETABULAR ARTHROPATHY WITH HYPERDENSE FRAGMENTS ALONG THE ANTERIOR SUPERIO R CHONDRAL LABRAL JUNCTION SUSPICIOUS FOR LABRAL INJURY. 2. NO EVIDENCE OF ACUTE FRACTURE OR DISLOCATION OF THE RIGHT HIP OR VISUALIZED PORTIONS OF THE PELVIS .
== END | disposition home or self-care (01) ==
LOC: EEVIPCON 17:00 → RADCTMAIN 17:04
PROVIDERS: ATTEND Orthopaedic Surgery
DX: M16.11 Unilateral primary osteoarthritis, right hip (principal)

== ENCOUNTER → 2018-10-15 | Outpatient (CLI) | payer MEDICARE ==
--- NOTE | 2018-10-15 15:17 | CT ---
EXAMINATION TYPE: CT brain wo con DATE OF EXAM: 10/15/2018 HISTORY: ams, confusion, hx of multiple strokes CT DLP: 1121 mGycm. Automated Exposure Control for Dose Reduction was Utilized. TECHNIQUE: CT scan of the head is performed without contrast. COMPARISON: CT scan of brain June 23, 2018. FINDINGS: There is no acute intracranial hemorrhage or midline shift identified. There is diffuse v entricular and sulcal prominence consistent with diffuse age-related cerebral atrophy. There is low- attenuation in the periventricular white matter consistent with chronic small vessel ischemic change. Vascular consultation distal internal carotid arteries is redemonstrated bilaterally. The globes are intact and the visualized sinuses are clear. IMPRESSION: No acute intracranial hemorrhage or midline shift. There is mild to moderate diffuse ag e-related cerebral atrophy and moderate chronic small vessel ischemic change redemonstrated. No sign ificant change from most recent CT.
[2018-10-15 15:33] LABS: HCT 34.2 % (34.0-46.0); HGB 11.1 gm/dL (11.4-16.0); MCH 27.8 pg (25.0-35.0); MCHC 32.4 g/dL (31.0-37.0); MCV 85.6 fL (80.0-100.0); Mean Platelet Volume 6.5; Platelet Count 417 k/uL (150-450); RBC 3.99 m/uL (3.80-5.40); RDW 12.9 % (11.5-15.5); WBC 12.5 k/uL (3.8-10.6)
[2018-10-15 15:41] LABS: Appearance,Urine Cloudy (Clear); Bacteria,Urine Rare /hpf; Bilirubin,Urine Negative (Negative); Blood,Urine Negative (Negative); Color,Urine Yellow; Glucose,Urine (UA) Negative (Negative); Hyaline Casts,Urine 4 /lpf (0-2); Ketones,Urine Negative (Negative); Leukocyte Esterase,Urine Negative (Negative); Nitrite,Urine Negative (Negative); PH, Urine 5.5 (5.0-8.0); Protein,Urine 1+ (Negative); RBC,Urine 3 /hpf (0-5); Specific Gravity,Urine 1.025 (1.001-1.035); Squamous Epithelial Cell,Urine <1 /hpf (0-4); Urobilinogen,Urine <2.0 mg/dL (<2.0); WBC,Urine 8 /hpf (0-5)
[2018-10-15 15:43] LABS: Albumin 4.1 g/dL (3.5-5.0); Calcium 10.3 mg/dL (8.4-10.2); Potassium 4.3 mmol/L (3.5-5.1); Total Bilirubin 0.3 mg/dL (0.2-1.3)
== END | disposition home or self-care (01) ==
LOC: EEVIPCON 14:36 → RADXRMAIN 14:36
PROVIDERS: ATTEND Psychiatry & Neurology Pain Medicine
DX: G31.1 Senile degeneration of brain, not elsewhere classified (principal); I67.82 Cerebral ischemia; R41.82 Altered mental status, unspecified; Z51.81 Encounter for therapeutic drug level monitoring
CPT/HCPCS: 36415; 70450; 80053; 81001; 85027; 87086

== ENCOUNTER 2018-11-08 15:15 | Emergency (ER) | payer MEDICARE ==
[2018-11-08 16:08] VITALS: RESP 18
[2018-11-08] MEDS ORDERED: SODIUM CHLORIDE 0.9% 1,000 ML IV STA (17:29)
[2018-11-08] MEDS ORDERED: HYDROmorphone 1 MG/ML 1 ML SYRINGE IVP STA (17:52)
[2018-11-08] MEDS ORDERED: ONDANSETRON 4 MG/2 ML VIAL IVP STA (17:52)
[2018-11-08 17:57] LABS: ALT 24 U/L (9-52); AST 22 U/L (14-36); Albumin 4.4 g/dL (3.5-5.0); Alkaline Phosphatase 71 U/L (38-126); Amylase 41 U/L (30-110); Anion Gap 10 mmol/L; Blood Urea Nitrogen 14 mg/dL (7-17); Calcium 10.3 mg/dL (8.4-10.2); Carbon Dioxide 24 mmol/L (22-30); Chloride 106 mmol/L (98-107); Glucose 104 mg/dL (74-99); Lipase 65 U/L (23-300); Potassium 4.5 mmol/L (3.5-5.1); Sodium 140 mmol/L (137-145); Total Bilirubin 0.4 mg/dL (0.2-1.3); Total Protein 7.1 g/dL (6.3-8.2)
[2018-11-08 18:01] LABS: Basophils # (A) 0.1 k/uL (0-0.2); Basophils % (A) 1 %; Eosinophils # (A) 0.4 k/uL (0-0.7); Eosinophils % (A) 3 %; HCT 33.4 % (34.0-46.0); Lymphocytes # (A) 3.2 k/uL (1.0-4.8); Lymphocytes % (A) 27 %; MCH 27.9 pg (25.0-35.0); MCV 84.6 fL (80.0-100.0); Mean Platelet Volume 6.8; Monocytes # (A) 0.5 k/uL (0-1.0); Monocytes % (A) 4 %; Neutrophils # (A) 7.9 k/uL (1.3-7.7); Neutrophils % (A) 65 %; Platelet Count 514 k/uL (150-450); RBC 3.95 m/uL (3.80-5.40); RDW 13.2 % (11.5-15.5); WBC 12.2 k/uL (3.8-10.6)
[2018-11-08] MEDS ORDERED: diphenhydrAMINE 50 MG/ML 1 ML VIAL IVP STA (18:01)
[2018-11-08] MEDS ORDERED: methylPREDNISolone SOD SUCCI 125 MG/2 ML VIAL IV STA (18:01)
[2018-11-08] MEDS ORDERED: FAMOTIDINE 20 MG/2 ML VIAL IV STA (18:01)
[2018-11-08 18:11] LABS: Appearance,Urine Clear (Clear); Bilirubin,Urine Negative (Negative); Blood,Urine Negative (Negative); Color,Urine Dark Yellow; Glucose,Urine (UA) Negative (Negative); Hyaline Casts,Urine 4 /lpf (0-2); Ketones,Urine Trace (Negative); Leukocyte Esterase,Urine Moderate (Negative); Mucus,Urine Rare /hpf; Nitrite,Urine Negative (Negative); PH, Urine 5.5 (5.0-8.0); Protein,Urine 1+ (Negative); RBC,Urine 5 /hpf (0-5); Specific Gravity,Urine 1.032 (1.001-1.035); Squamous Epithelial Cell,Urine <1 /hpf (0-4); Urobilinogen,Urine <2.0 mg/dL (<2.0); WBC,Urine 36 /hpf (0-5)
[2018-11-08 18:17] LABS: INR 0.9 (<1.2); Prothrombin Time 9.5 sec (9.0-12.0)
[2018-11-08 18:20] LABS: Partial Thromboplastin Time 21.1 sec (22.0-30.0)
--- NOTE | 2018-11-08 18:34 | ED ---
Abdominal Pain HPI - General Chief Complaint: Abdominal Pain Stated Complaint: Side/back pain Time Seen by Provider: 11/08/18 17:29 Source: patient, RN notes reviewed, old records reviewed Mode of arrival: ambulatory Limitations: no limitations - History of Present Illness Initial Comments: Patient is a 68-year-old female who presents emergency department with waxing and waning right upper quadrant abdominal pain for the past 3 days. She believes is related to her gallbladder kidney stones. She states she's had frequent urination. Multiple surgical history. - Related Data Home Medications Medication Instructions Recorded Confirmed Clopidogrel [Plavix] 75 mg PO DAILY 01/04/14 11/08/18 DULoxetine HCL [Cymbalta] 60 mg PO BID 01/04/14 11/08/18 Levothyroxine Sodium [Synthroid] 88 mcg PO QAM 01/04/14 11/08/18 Aspirin 81 mg PO HS 02/07/14 11/08/18 Vitamin B Complex 1 cap PO DAILY 02/21/15 11/08/18 Biotin 5 mg PO DAILY 04/26/15 11/08/18 Ascorbic Acid [Vitamin C] 1,000 mg PO DAILY 05/13/16 11/08/18 Carbidopa-Levodopa 25-100 mg 1 tab PO HS 03/26/18 11/08/18 [Sinemet 25-100 mg] Cholecalciferol [Vitamin D3] 5,000 unit PO DAILY 03/26/18 11/08/18 Fluticasone Nasal [place] [Flonase 1 spray EA NOSTRIL DAILY 06/23/18 11/08/18 Nasal [place]] Metoprolol Tartrate [Lopressor] 50 mg PO TID 06/23/18 11/08/18 Acetaminophen Tab [Tylenol Tab] 1,000 mg PO Q6HR PRN 11/08/18 11/08/18 Dilaudid Pain Pump 1 dose INTRATHECA DIRECTED 11/08/18 11/08/18 EPINEPHrine (Auto Inject) [Epipen] 0.3 mg IM ONCE PRN 11/08/18 11/08/18 Memantine [Namenda] 5 mg PO BID 11/08/18 11/08/18 Montelukast [Singulair] 10 mg PO DAILY 11/08/18 11/08/18 Vitamin B Complex 1 cap PO DAILY 11/08/18 11/08/18 Previous Rx's Medication Instructions Recorded Folic Acid 1 mg PO DAILY@1200 #30 tab 04/02/18 Albuterol Nebulized [Ventolin 2.5 mg INHALATION RT-QID #0 07/01/18 Nebulized] amLODIPine [Norvasc] 5 mg PO DAILY tab 07/01/18 Nitrofurantoin Monohyd/M-Cryst 100 mg PO Q12HR #14 cap 11/08/18 [Macrobid] Phenazopyridine HCl [Pyridium] 100 mg PO TID #9 tab 11/08/18 Allergies Allergy/AdvReac Type Severity Reaction Status Date / Time aripiprazole [From Abilify] Allergy Anaphylaxis Verified 11/08/18 17:27 baclofen Allergy Anaphylaxis Verified 11/08/18 17:27 butalbital [From Fioricet] Allergy Rash/Hives Verified 11/08/18 17:27 cefadroxil hydrate Allergy Rash/Hives Verified 11/08/18 17:27 [From Duricef] cefazolin sodium Allergy Anaphylaxis Verified 11/08/18 17:27 [From Kefzol] cephalexin monohydrate Allergy Anaphylaxis Verified 11/08/18 17:27 [From Keflex] ciprofloxacin [From Cipro] Allergy Swelling Verified 11/08/18 17:27 OF THROAT ,RASH AND HIVES ciprofloxacin HCl Allergy Rash/Hives, Verified 11/08/18 17:27 [From Cipro] SWELLING OF THROAT clindamycin HCl Allergy Unknown Verified 11/08/18 17:27 [From Cleocin] clindamycin palmitate HCl Allergy Unknown Verified 11/08/18 17:27 [From Cleocin] clindamycin phosphate Allergy Unknown Verified 11/08/18 17:27 [From Cleocin] dexamethasone [From Decadron] Allergy Anaphylaxis Verified 11/08/18 17:27 dexamethasone sod phosphate Allergy Anaphylaxis Verified 11/08/18 17:27 [From Decadron] ,RASH divalproex sodium Allergy Rash/Hives Verified 11/08/18 17:27 [From Depakote] hydroxyzine HCl [From Atarax] Allergy Unknown Verified 11/08/18 17:27 ibuprofen [From Motrin] Allergy RASH Verified 11/08/18 17:27 ,ITCHING SWELLING OF THROAT influenza virus vaccine, Allergy Anaphylaxis Verified 11/08/18 17:27 specific [Influenza Virus Vacc,Specific] Iodinated Contrast- Oral and Allergy Anaphylaxis Verified 11/08/18 17:27 IV Dye ketorolac tromethamine Allergy Chest Pain Verified 11/08/18 17:27 [From Toradol] lidocaine HCl Allergy Anaphylaxis Verified 11/08/18 17:27 [From Xylocaine] lisinopril Allergy Swelling Verified 11/08/18 17:27 meperidine HCl [From Demerol] Allergy Rash/Hives Verified 11/08/18 17:27 Milk Containing Products Allergy ABDOMINAL Verified 11/08/18 17:27 PAIN NAUSEA AND VOMITING morphine Allergy Vomiting Verified 11/08/18 17:27 Mushroom Allergy Anaphylaxis Verified 11/08/18 17:27 nortriptyline HCl Allergy Unknown Verified 11/08/18 17:27 [From Pamelor] omalizumab [From Xolair] Allergy Anaphylaxis Verified 11/08/18 17:27 Penicillins Allergy Rash/Hives Verified 11/08/18 17:27 pregabalin [From Lyrica] Allergy Rash/Hives Verified 11/08/18 17:27 procaine HCl [From Novocain] Allergy Unknown Verified 11/08/18 17:27 shellfish derived Allergy Anaphylaxis Verified 11/08/18 17:27 sulfamethoxazole Allergy Unknown Verified 11/08/18 17:27 [From Septra] tetracycline [Tetracycline] Allergy Rash/Hives Verified 11/08/18 17:27 theophylline anhydrous Allergy Unknown Verified 11/08/18 17:27 [From Joel-Dur] triamcinolone Allergy Anaphylaxis Verified 11/08/18 17:27 trimethoprim [From Septra] Allergy RASH, Verified 11/08/18 17:27 ITCHING vancomycin Allergy ITCHING Verified 11/08/18 17:27 ,HIVES wheat Allergy Rash/Hives Verified 11/08/18 17:27 yellow dye Allergy Anaphylaxis Verified 11/08/18 17:27 erythromycin base AdvReac Rash/Hives Verified 11/08/18 17:27 fentanyl [From Duragesic] AdvReac Unknown Verified 11/08/18 17:27 NSAIDS (Non-Steroidal AdvReac Unknown Verified 11/08/18 17:27 Anti-Inflamma verapamil AdvReac Rash/Hives Verified 11/08/18 17:27 PAPER TAPE Allergy Rash/BLISTE Uncoded 04/27/18 13:31 RS PERSERATIVE IN ALBUTEROL Allergy Dyspnea Uncoded 04/27/18 13:31 INHALER PU steroids Allergy Rash/Hives Uncoded 04/27/18 13:31 WHITE SUTURE Allergy Swelling Uncoded 04/27/18 13:31 Review of Systems ROS Statement: Those systems with pertinent positive or pertinent negative responses have been documented in the HPI. ROS Other: All systems not noted in ROS Statement are negative. Past Medical History Past Medical History: Asthma, Cancer, Chest Pain / Angina, CVA/TIA, Fibromyalgia, GERD/Reflux, Hyperlipidemia, Hypertension, Osteoarthritis (OA), Renal Disease, Thyroid Disorder Additional Past Medical History / Comment(s): Pt recently admitted to [facility] on 03/26/18 with UTI/sepsis, hyponatremia/SIADH, hypomagnesemia, hypokalemia and bacterial MRSA. Other HX: Frequent falls, bilateral weakness from CVAs and loss of equalibrium-also had bilateral facial droops that resolve, pt states she has had 6 CVAs total, TIAs, L leg bone cancer and entire leg has titanium rods, R knee arthroplasty-pt fell and damaged artificial joint, chronic back pain, carpal tunnel syndrome bilateral elbows/shoulders, DJD, diabetes insipidus, LAUREN with no device since weight loss, CKD stage III, AKHIOK bilaterally, anemia. History of Any Multi-Drug Resistant Organisms: MRSA Date of last positivie culture/infection: 03/26/18 MDRO Source:: BLOOD Past Surgical History: Appendectomy, Back Surgery, Bariatric Surgery, Cholecystectomy, Heart Catheterization, Hysterectomy, Joint Replacement, Orthopedic Surgery, Tubal Ligation Additional Past Surgical History / Comment(s): 04/02/18 PICC line for ABX, Lap band with removal, gastric sleeve, L leg titanium rods, R total knee arthroplast y, bilateral wrist carpal tunnel releases, R great toe surgery to remove a growth, lithotripsy, pain stimulator-nonfunctioning, pain clinic procedures, bilateral cataract removals. Past Anesthesia/Blood Transfusion Reactions: Previous Problems w/ Anesthesia Additional Past Anesthesia/Blood Transfusion Reaction / Comment(s): Slow to wake. Past Psychological History: Anxiety, Depression, Panic Disorder Smoking Status: Never smoker Past Alcohol Use History: None Reported Past Drug Use History: None Reported - Past Family History Father Additional Family Medical History / Comment(s): pt was 7 years old when her father was murdered/ from gsw Mother Family Medical History: CVA/TIA Daughter(s) Family Medical History: Deep Vein Thrombosis (DVT) Additional Family Medical History / Comment(s): dvt General Exam - General Exam Comments Initial Comments: 68-year-old female. Alert and oriented. No significant distress. Limitations: no limitations General appearance: alert, in no apparent distress Head exam: Present: atraumatic, normocephalic, normal inspection Eye exam: Present: normal appearance, PERRL, EOMI. Absent: scleral icterus, conjunctival injection, periorbital swelling ENT exam: Present: normal exam, mucous membranes moist Neck exam: Present: normal inspection. Absent: tenderness, meningismus, lymphadenopathy Respiratory exam: Present: normal lung sounds bilaterally. Absent: respiratory distress, wheezes, rales, rhonchi, stridor Cardiovascular Exam: Present: regular rate, normal rhythm, normal heart sounds. Absent: systolic murmur, diastolic murmur, rubs, gallop, clicks GI/Abdominal exam: Present: soft, normal bowel sounds. Absent: distended, tenderness, guarding, rebound, rigid Extremities exam: Present: normal inspection, full ROM, normal capillary refill. Absent: tenderness, pedal edema, joint swelling, calf tenderness Back exam: Present: normal inspection Neurological exam: Present: alert, oriented X3, CN II-XII intact Psychiatric exam: Present: normal affect, normal mood Skin exam: Present: warm, dry, intact, normal color. Absent: rash Course Vital Signs 11/08/18 11/08/18 11/08/18 16:02 19:39 20:32 Temperature 97.9 F 98.4 F Pulse Rate 75 90 70 Respiratory 18 18 18 Rate Blood Pressure 153/75 135/45 149/82 O2 Sat by Pulse 98 98 99 Oximetry Medical Decision Making - Medical Decision Making Patient is a 68 year old female with diffuse colickly abdominal pain for 3 days, and dysuria. She was given IV fluids nad labs obtained. PAtient has evidence of UTI. Patient has urine culture completed. Patient given dose of macrobid, as she has multiple drug allergies. CT abdomen and pelvis shows mildly dilated CBD, how ever liver enzymes and pancreativ enzymes normal. Discussed follow up with PCP and Dr. Brown. All questions answered. - Lab Data Result diagrams: 11/08/18 17:22 11/08/18 17:22 Lab Results 11/08/18 11/08/18 11/08/18 Range/Units 17:22 17:22 17:22 WBC 12.2 H (3.8-10.6) k/uL RBC 3.95 (3.80-5.40) m/uL Hgb 11.0 L (11.4-16.0) gm/dL Hct 33.4 L (34.0-46.0) % MCV 84.6 (80.0-100.0) fL MCH 27.9 (25.0-35.0) pg MCHC 33.0 (31.0-37.0) g/dL RDW 13.2 (11.5-15.5) % Plt Count 514 H (150-450) k/uL Neutrophils % 65 % Lymphocytes % 27 % Monocytes % 4 % Eosinophils % 3 % Basophils % 1 % Neutrophils # 7.9 H (1.3-7.7) k/uL Lymphocytes # 3.2 (1.0-4.8) k/uL Monocytes # 0.5 (0-1.0) k/uL Eosinophils # 0.4 (0-0.7) k/uL Basophils # 0.1 (0-0.2) k/uL PT 9.5 (9.0-12.0) sec INR 0.9 (<1.2) APTT 21.1 L (22.0-30.0) sec Sodium 140 (137-145) mmol/L Potassium 4.5 (3.5-5.1) mmol/L Chloride 106 (98-107) mmol/L Carbon Dioxide 24 (22-30) mmol/L Anion Gap 10 mmol/L BUN 14 (7-17) mg/dL Creatinine 0.58 (0.52-1.04) mg/dL Est GFR (CKD-EPI)AfAm >90 (>60 ml/min/1.73 sqM) Est GFR (CKD-EPI)NonAf >90 (>60 ml/min/1.73 sqM) Glucose 104 H (74-99) mg/dL Calcium 10.3 H (8.4-10.2) mg/dL Total Bilirubin 0.4 (0.2-1.3) mg/dL AST 22 (14-36) U/L ALT 24 (9-52) U/L Alkaline Phosphatase 71 (38-126) U/L Total Protein 7.1 (6.3-8.2) g/dL Albumin 4.4 (3.5-5.0) g/dL Amylase 41 (30-110) U/L Lipase 65 (23-300) U/L Urine Color Urine Appearance (Clear) Urine pH (5.0-8.0) Ur Specific [place] (1.001-1.035) Urine Protein (Negative) Urine Glucose (UA) (Negative) Urine Ketones (Negative) Urine Blood (Negative) Urine Nitrite (Negative) Urine Bilirubin (Negative) Urine Urobilinogen (<2.0) mg/dL Ur Leukocyte Esterase (Negative) Urine RBC (0-5) /hpf Urine WBC (0-5) /hpf Ur Squamous Epith Cells (0-4) /hpf Hyaline Casts (0-2) /lpf Urine Mucus (None) /hpf 11/08/18 Range/Units 17:22 WBC (3.8-10.6) k/uL RBC (3.80-5.40) m/uL Hgb (11.4-16.0) gm/dL Hct (34.0-46.0) % MCV (80.0-100.0) fL MCH (25.0-35.0) pg MCHC (31.0-37.0) g/dL RDW (11.5-15.5) % Plt Count (150-450) k/uL Neutrophils % % Lymphocytes % % Monocytes % % Eosinophils % % Basophils % % Neutrophils # (1.3-7.7) k/uL Lymphocytes # (1.0-4.8) k/uL Monocytes # (0-1.0) k/uL Eosinophils # (0-0.7) k/uL Basophils # (0-0.2) k/uL PT (9.0-12.0) sec INR (<1.2) APTT (22.0-30.0) sec Sodium (137-145) mmol/L Potassium (3.5-5.1) mmol/L Chloride (98-107) mmol/L Carbon Dioxide (22-30) mmol/L Anion Gap mmol/L BUN (7-17) mg/dL Creatinine (0.52-1.04) mg/dL Est GFR (CKD-EPI)AfAm (>60 ml/min/1.73 sqM) Est GFR (CKD-EPI)NonAf (>60 ml/min/1.73 sqM) Glucose (74-99) mg/dL Calcium (8.4-10.2) mg/dL Total Bilirubin (0.2-1.3) mg/dL AST (14-36) U/L ALT (9-52) U/L Alkaline Phosphatase (38-126) U/L Total Protein (6.3-8.2) g/dL Albumin (3.5-5.0) g/dL Amylase (30-110) U/L Lipase (23-300) U/L Urine Color Dark Yellow Urine Appearance Clear (Clear) Urine pH 5.5 (5.0-8.0) Ur Specific [place] 1.032 (1.001-1.035) Urine Protein 1+ H (Negative) Urine Glucose (UA) Negative (Negative) Urine Ketones Trace H (Negative) Urine Blood Negative (Negative) Urine Nitrite Negative (Negative) Urine Bilirubin Negative (Negative) Urine Urobilinogen <2.0 (<2.0) mg/dL Ur Leukocyte Esterase Moderate H (Negative) Urine RBC 5 (0-5) /hpf Urine WBC 36 H (0-5) /hpf Ur Squamous Epith Cells <1 (0-4) /hpf Hyaline Casts 4 H (0-2) /lpf Urine Mucus Rare H (None) /hpf - Radiology Data Radiology results: report reviewed M Mildly dilated biliary tree increased compared old computed tomography scan. Stricture of distal common bile duct to be present. Mild sigmoid diverticulosis. Evidence of previous surgeries. Clearing of the small bowel ileus compared to last exam. Disposition Clinical Impression: UTI (urinary tract infection) Disposition: HOME SELF-CARE Condition: Good Instructions (If sedation given, give patient instructions): Urinary Tract Infection in Women (ED) Additional Instructions: Follow-up with primary care doctor. Return to emergency department if any alarming signs or symptoms occur. Prescriptions: Nitrofurantoin Monohyd/M-Cryst [Macrobid] 100 mg PO Q12HR #14 cap Phenazopyridine HCl [Pyridium] 100 mg PO TID #9 tab Is patient prescribed a controlled substance at d/c from ED?: No Referrals: Kaur Cabello MD [Primary Care Provider] - 1-2 days Time of Disposition: 19:56
--- NOTE | 2018-11-08 18:52 | CT ---
EXAMINATION TYPE: CT abdomen pelvis w con DATE OF EXAM: 11/08/2018 COMPARISON: 11/22/2009 HISTORY: Pelvic pain, nausea. CT DLP: 813.4 mGycm Automated exposure control for dose reduction was used. TECHNIQUE: Helical acquisition of images was performed from the lung bases through the pelvis. CONTRAST: Performed without Oral Contrast and with IV Contrast, patient injected with 100 mL of Isovue 300. FINDINGS: Lung bases are clear of consolidation. There is no pleural effusion. There is no pericardial effusion . There is small hiatal hernia. There is surgical clips on the stomach. There are clips from cholecys tectomy. There is mildly dilated biliary tree. Common bile duct measures 1.8 cm. Spleen appears austin l. There is no pancreatic mass. I see no obstructing lesion of the distal common bile duct. There is no adrenal mass. There is 5.8 cm cortical cyst anterior right kidney. There is no hydronephr osis. There is no retroperitoneal adenopathy. Bladder distends smoothly. There is no inguinal hernia. There is no free fluid in the pelvis. There is no evidence of a bowel obstruction. There is no mesen teric edema. There is no free air or ascites. I see no bony destructive process. Lumbar spine is intact. There are a few diverticula in the sigmoid colon. There is no sign of diverticulitis. Appendix is not seen. There is no sign of appendicitis. IMPRESSION: THERE IS MODERATELY DILATED BILIARY TREE THAT IS INCREASED COMPARED TO OLD CT SCAN. STRICTURE OF THE DISTAL COMMON BILE DUCT COULD BE PRESENT. MILD SIGMOID DIVERTICULOSIS. PREVIOUS SURGERY. THERE IS CLEARING OF THE SMALL BOWEL ILEUS COMPARED TO OLD EXAM.
[2018-11-08] MEDS ORDERED: NITROFURANTOIN MONOHYD/M-CRYST 100 MG CAP PO STA (19:55)
[2018-11-08] MEDS ORDERED: PHENAZOPYRIDINE 100 MG TAB PO STA (19:56)
[2018-11-08 20:33] VITALS: BP 149/82; PULSE 70; TEMP 98.4
== END 2018-11-08 20:33 | disposition home or self-care (01) ==
LOC: EC 15:15
DX: N39.0 Urinary tract infection, site not specified (principal); J45.909 Unspecified asthma, uncomplicated; E07.9 Disorder of thyroid, unspecified; I12.9 Hypertensive chronic kidney disease with stage 1 through stage 4 chronic kidney disease, or unspecified chronic kidney disease; N18.3 Chronic kidney disease, stage 3 (moderate); M79.7 Fibromyalgia; F41.0 Panic disorder [episodic paroxysmal anxiety]; F32.9 Major depressive disorder, single episode, unspecified; Z79.02 Long term (current) use of antithrombotics/antiplatelets; Z79.890 Hormone replacement therapy; Z79.899 Other long term (current) drug therapy; Z79.51 Long term (current) use of inhaled steroids; Z79.82 Long term (current) use of aspirin; Z88.8 Allergy status to other drugs, medicaments and biological substances; Z88.1 Allergy status to other antibiotic agents; Z88.6 Allergy status to analgesic agent; Z88.7 Allergy status to serum and vaccine; Z91.041 Radiographic dye allergy status; Z88.4 Allergy status to anesthetic agent; Z91.011 Allergy to milk products; Z88.5 Allergy status to narcotic agent; Z91.018 Allergy to other foods; Z88.0 Allergy status to penicillin; Z91.013 Allergy to seafood; Z88.2 Allergy status to sulfonamides; Z91.02 Food additives allergy status; Z91.048 Other nonmedicinal substance allergy status; Z86.73 Personal history of transient ischemic attack (TIA), and cerebral infarction without residual deficits; Z90.89 Acquired absence of other organs; Z90.49 Acquired absence of other specified parts of digestive tract; Z98.84 Bariatric surgery status; Z95.5 Presence of coronary angioplasty implant and graft; Z96.651 Presence of right artificial knee joint
CPT/HCPCS: 36415; 80053; 82150; 83690; 85025; 85610; 85730; 81001; 74177; 99284; 96374; 96375 ×4; 96361 ×2; J1200; J2930; J2405; J1170; Q9967; 87086

== ENCOUNTER 2018-11-22 14:05 | Emergency (ER) | payer MEDICARE ==
--- NOTE | 2018-11-22 14:31 | ED ---
Skin/Abscess/FB HPI - General Chief complaint: Skin/Abscess/Foreign Body Stated complaint: Post Op Bleeding Time Seen by Provider: 11/22/18 14:25 Source: patient, EMS, RN notes reviewed, old records reviewed Mode of arrival: EMS Limitations: no limitations - History of Present Illness Initial comments: This is a 5-year-old female the ER for evaluation. Patient presented today for evaluation of wound bleeding. Patient is on Plavix no other blood thinners. Patient states she was bleeding from her recent pain pump site. Patient does admit to increasing pain. Patient is in no prior history of similar bleeding from that site. Patient does admit to fullness and tenseness in her abdomen around the site. Tenderness there as well. No lightheadedness or dizziness. MD complaint: other (Patient is bleeding from pain pump site) -: minutes(s) Severity: moderate Severity scale (1-10): 5 Quality: aching Consistency: constant Improves with: none Worsens with: none Context: none Associated symptoms: denies other symptoms Treatments Prior to Arrival: none - Related Data Home Medications Medication Instructions Recorded Confirmed Clopidogrel [Plavix] 75 mg PO DAILY 01/04/14 11/22/18 DULoxetine HCL [Cymbalta] 60 mg PO BID 01/04/14 11/22/18 Levothyroxine Sodium [Synthroid] 88 mcg PO QAM 01/04/14 11/22/18 Aspirin 81 mg PO HS 02/07/14 11/22/18 Biotin 5 mg PO DAILY 04/26/15 11/22/18 Ascorbic Acid [Vitamin C] 1,000 mg PO DAILY 05/13/16 11/22/18 Carbidopa-Levodopa 25-100 mg 1 tab PO HS 03/26/18 11/22/18 [Sinemet 25-100 mg] Cholecalciferol [Vitamin D3 (25 5,000 unit PO DAILY 03/26/18 11/22/18 Mcg = 1000 Iu)] Fluticasone Nasal Critz [Flonase 1 spray EA NOSTRIL DAILY 06/23/18 11/22/18 Nasal Critz] Metoprolol Tartrate [Lopressor] 50 mg PO TID 06/23/18 11/22/18 Acetaminophen Tab [Tylenol Tab] 1,000 mg PO Q6HR PRN 11/08/18 11/22/18 Dilaudid Pain Pump 1 dose INTRATHECA DIRECTED 11/08/18 11/22/18 EPINEPHrine (Auto Inject) [Epipen] 0.3 mg IM ONCE PRN 11/08/18 11/22/18 Memantine [Namenda] 5 mg PO BID 11/08/18 11/22/18 Montelukast [Singulair] 10 mg PO DAILY 11/08/18 11/22/18 Vitamin B Complex 1 cap PO DAILY 11/08/18 11/22/18 Previous Rx's Medication Instructions Recorded Folic Acid 1 mg PO DAILY@1200 #30 tab 04/02/18 Albuterol Nebulized [Ventolin 2.5 mg INHALATION RT-QID #0 07/01/18 Nebulized] amLODIPine [Norvasc] 5 mg PO DAILY tab 07/01/18 Allergies Allergy/AdvReac Type Severity Reaction Status Date / Time aripiprazole [From Abilify] Allergy Anaphylaxis Verified 11/22/18 14:19 baclofen Allergy Anaphylaxis Verified 11/22/18 14:19 butalbital [From Fioricet] Allergy Rash/Hives Verified 11/22/18 14:19 cefadroxil hydrate Allergy Rash/Hives Verified 11/22/18 14:19 [From Duricef] cefazolin sodium Allergy Anaphylaxis Verified 11/22/18 14:19 [From Kefzol] cephalexin monohydrate Allergy Anaphylaxis Verified 11/22/18 14:19 [From Keflex] ciprofloxacin [From Cipro] Allergy Swelling Verified 11/22/18 14:19 OF THROAT ,RASH AND HIVES ciprofloxacin HCl Allergy Rash/Hives, Verified 11/22/18 14:19 [From Cipro] SWELLING OF THROAT clindamycin HCl Allergy Unknown Verified 11/22/18 14:19 [From Cleocin] clindamycin palmitate HCl Allergy Unknown Verified 11/22/18 14:19 [From Cleocin] clindamycin phosphate Allergy Unknown Verified 11/22/18 14:19 [From Cleocin] dexamethasone [From Decadron] Allergy Anaphylaxis Verified 11/22/18 14:19 dexamethasone sod phosphate Allergy Anaphylaxis Verified 11/22/18 14:19 [From Decadron] ,RASH divalproex sodium Allergy Rash/Hives Verified 11/22/18 14:19 [From Depakote] hydroxyzine HCl [From Atarax] Allergy Unknown Verified 11/22/18 14:19 ibuprofen [From Motrin] Allergy RASH Verified 11/22/18 14:19 ,ITCHING SWELLING OF THROAT influenza virus vaccine, Allergy Anaphylaxis Verified 11/22/18 14:19 specific [Influenza Virus Vacc,Specific] Iodinated Contrast- Oral and Allergy Anaphylaxis Verified 11/22/18 14:19 IV Dye ketorolac tromethamine Allergy Chest Pain Verified 11/22/18 14:19 [From Toradol] lidocaine HCl Allergy Anaphylaxis Verified 11/22/18 14:19 [From Xylocaine] lisinopril Allergy Swelling Verified 11/22/18 14:19 meperidine HCl [From Demerol] Allergy Rash/Hives Verified 11/22/18 14:19 Milk Containing Products Allergy ABDOMINAL Verified 11/22/18 14:19 PAIN NAUSEA AND VOMITING morphine Allergy Vomiting Verified 11/22/18 14:19 Mushroom Allergy Anaphylaxis Verified 11/22/18 14:19 nortriptyline HCl Allergy Unknown Verified 11/22/18 14:19 [From Pamelor] omalizumab [From Xolair] Allergy Anaphylaxis Verified 11/22/18 14:19 Penicillins Allergy Rash/Hives Verified 11/22/18 14:19 pregabalin [From Lyrica] Allergy Rash/Hives Verified 11/22/18 14:19 procaine HCl [From Novocain] Allergy Unknown Verified 11/22/18 14:19 shellfish derived Allergy Anaphylaxis Verified 11/22/18 14:19 sulfamethoxazole Allergy Unknown Verified 11/22/18 14:19 [From Septra] tetracycline [Tetracycline] Allergy Rash/Hives Verified 11/22/18 14:19 theophylline anhydrous Allergy Unknown Verified 11/22/18 14:19 [From Joel-Dur] triamcinolone Allergy Anaphylaxis Verified 11/22/18 14:19 trimethoprim [From Septra] Allergy RASH, Verified 11/22/18 14:19 ITCHING vancomycin Allergy ITCHING Verified 11/22/18 14:19 ,HIVES wheat Allergy Rash/Hives Verified 11/22/18 14:19 yellow dye Allergy Anaphylaxis Verified 11/22/18 14:19 erythromycin base AdvReac Rash/Hives Verified 11/22/18 14:19 fentanyl [From Duragesic] AdvReac Unknown Verified 11/22/18 14:19 NSAIDS (Non-Steroidal AdvReac Unknown Verified 11/22/18 14:19 Anti-Inflamma verapamil AdvReac Rash/Hives Verified 11/22/18 14:19 PAPER TAPE Allergy Rash/BLISTE Uncoded 04/27/18 13:31 RS PERSERATIVE IN ALBUTEROL Allergy Dyspnea Uncoded 04/27/18 13:31 INHALER PU steroids Allergy Rash/Hives Uncoded 04/27/18 13:31 WHITE SUTURE Allergy Swelling Uncoded 04/27/18 13:31 Review of Systems ROS Statement: Those systems with pertinent positive or pertinent negative responses have been documented in the HPI. ROS Other: All systems not noted in ROS Statement are negative. Past Medical History Past Medical History: Asthma, Cancer, Chest Pain / Angina, CVA/TIA, Fibromyalgia, GERD/Reflux, Hyperlipidemia, Hypertension, Osteoarthritis (OA), Renal Disease, Thyroid Disorder Additional Past Medical History / Comment(s): Pt recently admitted to [facility] on 03/26/18 with UTI/sepsis, hyponatremia/SIADH, hypomagnesemia, hypokalemia and bacterial MRSA. 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 History of Any Multi-Drug Resistant Organisms: MRSA Date of last positivie culture/infection: 03/26/18 MDRO Source:: BLOOD Past Surgical History: Appendectomy, Back Surgery, Bariatric Surgery, Cholecystectomy, Heart Catheterization, Hysterectomy, Joint Replacement, Orthopedic Surgery, Tubal Ligation Additional Past Surgical History / Comment(s): 04/02/18 PICC line for ABX, Lap band with removal, gastric sleeve, L leg titanium rods, R total knee arthroplasty, bilateral wrist carpal tunnel releases, R great toe surgery to remove a growth, lithotripsy, pain stimulator-nonfunctioning, pain clinic procedures, bilateral cataract removals. Past Anesthesia/Blood Transfusion Reactions: Previous Problems w/ Anesthesia Additional Past Anesthesia/Blood Transfusion Reaction / Comment(s): Slow to wake. Past Psychological History: Anxiety, Depression, Panic Disorder Smoking Status: Never smoker Past Alcohol Use History: None Reported Past Drug Use History: None Reported - Past Family History Father Additional Family Medical History / Comment(s): pt was 7 years old when her father was murdered/ from gsw Mother Family Medical History: CVA/TIA Daughter(s) Family Medical History: Deep Vein Thrombosis (DVT) Additional Family Medical History / Comment(s): dvt General Exam - General Exam Comments Initial Comments: Patient does have pain pump the left abdominal wall. Patient having mild bleeding from that area Limitations: no limitations General appearance: alert, in no apparent distress Head exam: Present: atraumatic, normocephalic, normal inspection Eye exam: Present: normal appearance, PERRL, EOMI. Absent: scleral icterus, conjunctival injection, periorbital swelling ENT exam: Present: normal exam, mucous membranes moist Neck exam: Present: normal inspection. Absent: tenderness, meningismus, lymphadenopathy Respiratory exam: Present: normal lung sounds bilaterally. Absent: respiratory distress, wheezes, rales, rhonchi, stridor Cardiovascular Exam: Present: regular rate, normal rhythm, normal heart sounds. Absent: systolic murmur, diastolic murmur, rubs, gallop, clicks GI/Abdominal exam: Present: soft, normal bowel sounds. Absent: distended, tenderness, guarding, rebound, rigid Extremities exam: Present: normal inspection, full ROM, normal capillary refill. Absent: tenderness, pedal edema, joint swelling, calf tenderness Back exam: Present: normal inspection Neurological exam: Present: alert, oriented X3, CN II-XII intact Psychiatric exam: Present: normal affect, normal mood Skin exam: Present: warm, dry, intact, normal color. Absent: rash Course Vital Signs 11/22/18 11/22/18 11/22/18 14:12 15:15 16:15 Temperature 98.2 F Pulse Rate 80 88 79 Respiratory 20 20 20 Rate Blood Pressure 136/75 134/56 164/81 O2 Sat by Pulse 99 99 99 Oximetry 11/22/18 17:10 Temperature Pulse Rate 77 Respiratory 20 Rate Blood Pressure 162/80 O2 Sat by Pulse 99 Oximetry - Reevaluation(s) Reevaluation #1: 11/22/18 16:53 Medical records reviewed Reevaluation #2: 11/22/18 16:53 Patient showing no bleeding from site currently Medical Decision Making - Medical Decision Making 68 female the ER for bleeding from wound. No current bleeding noted. Patient will have wound redressed and can be discharged home - Lab Data Result diagrams: 11/22/18 15:15 11/22/18 15:15 Lab Results 11/22/18 11/22/18 11/22/18 Range/Units 15:15 15:15 15:15 WBC 10.8 H (3.8-10.6) k/uL RBC 3.66 L (3.80-5.40) m/uL Hgb 10.6 L (11.4-16.0) gm/dL Hct 32.2 L (34.0-46.0) % MCV 88.0 (80.0-100.0) fL MCH 29.0 (25.0-35.0) pg MCHC 33.0 (31.0-37.0) g/dL RDW 13.9 (11.5-15.5) % Plt Count 416 (150-450) k/uL Neutrophils % 59 % Lymphocytes % 30 % Monocytes % 4 % Eosinophils % 4 % Basophils % 1 % Neutrophils # 6.4 (1.3-7.7) k/uL Lymphocytes # 3.3 (1.0-4.8) k/uL Monocytes # 0.5 (0-1.0) k/uL Eosinophils # 0.4 (0-0.7) k/uL Basophils # 0.1 (0-0.2) k/uL PT 9.5 (9.0-12.0) sec INR 0.9 (<1.2) APTT 20.8 L (22.0-30.0) sec Sodium 143 (137-145) mmol/L Potassium 3.9 (3.5-5.1) mmol/L Chloride 108 H (98-107) mmol/L Carbon Dioxide 26 (22-30) mmol/L Anion Gap 9 mmol/L BUN 17 (7-17) mg/dL Creatinine 0.72 (0.52-1.04) mg/dL Est GFR (CKD-EPI)AfAm >90 (>60 ml/min/1.73 sqM) Est GFR (CKD-EPI)NonAf 86 (>60 ml/min/1.73 sqM) Glucose 77 (74-99) mg/dL Calcium 9.8 (8.4-10.2) mg/dL Total Bilirubin 0.3 (0.2-1.3) mg/dL AST 17 (14-36) U/L ALT 20 (9-52) U/L Alkaline Phosphatase 72 (38-126) U/L Total Protein 6.7 (6.3-8.2) g/dL Albumin 4.1 (3.5-5.0) g/dL Amylase 42 (30-110) U/L Lipase 76 (23-300) U/L Blood Type Blood Type Confirm Blood Type Recheck Antibody Screen Spec Expiration Date 11/22/18 11/22/18 Range/Units 15:15 16:30 WBC (3.8-10.6) k/uL RBC (3.80-5.40) m/uL Hgb (11.4-16.0) gm/dL Hct (34.0-46.0) % MCV (80.0-100.0) fL MCH (25.0-35.0) pg MCHC (31.0-37.0) g/dL RDW (11.5-15.5) % Plt Count (150-450) k/uL Neutrophils % % Lymphocytes % % Monocytes % % Eosinophils % % Basophils % % Neutrophils # (1.3-7.7) k/uL Lymphocytes # (1.0-4.8) k/uL Monocytes # (0-1.0) k/uL Eosinophils # (0-0.7) k/uL Basophils # (0-0.2) k/uL PT (9.0-12.0) sec INR (<1.2) APTT (22.0-30.0) sec Sodium (137-145) mmol/L Potassium (3.5-5.1) mmol/L Chloride (98-107) mmol/L Carbon Dioxide (22-30) mmol/L Anion Gap mmol/L BUN (7-17) mg/dL Creatinine (0.52-1.04) mg/dL Est GFR (CKD-EPI)AfAm (>60 ml/min/1.73 sqM) Est GFR (CKD-EPI)NonAf (>60 ml/min/1.73 sqM) Glucose (74-99) mg/dL Calcium (8.4-10.2) mg/dL Total Bilirubin (0.2-1.3) mg/dL AST (14-36) U/L ALT (9-52) U/L Alkaline Phosphatase (38-126) U/L Total Protein (6.3-8.2) g/dL Albumin (3.5-5.0) g/dL Amylase (30-110) U/L Lipase (23-300) U/L Blood Type A Positive Blood Type Confirm A Positive Blood Type Recheck CABO Indicated Antibody Screen NEGATIVE Spec Expiration Date 11/25/2018 - 2315 - Radiology Data Radiology results: report reviewed (CT head and pelvis is negative for acute disease), image reviewed Disposition Clinical Impression: Bleeding from wound Disposition: HOME SELF-CARE Condition: Good Instructions (If sedation given, give patient instructions): Acute Wound Care (ED) Is patient prescribed a controlled substance at d/c from ED?: No Referrals: Kaur Cabello MD [Primary Care Provider] - 1-2 days
[2018-11-22] MEDS ORDERED: HYDROmorphone 1 MG/ML 1 ML SYRINGE IVP STA (14:46)
[2018-11-22 15:37] LABS: Basophils # (A) 0.1 k/uL (0-0.2); Basophils % (A) 1 %; Eosinophils # (A) 0.4 k/uL (0-0.7); Eosinophils % (A) 4 %; HCT 32.2 % (34.0-46.0); HGB 10.6 gm/dL (11.4-16.0); Lymphocytes # (A) 3.3 k/uL (1.0-4.8); Lymphocytes % (A) 30 %; Mean Platelet Volume 6.5; Monocytes # (A) 0.5 k/uL (0-1.0); Monocytes % (A) 4 %; Neutrophils # (A) 6.4 k/uL (1.3-7.7); Neutrophils % (A) 59 %; Platelet Count 416 k/uL (150-450); RBC 3.66 m/uL (3.80-5.40); RDW 13.9 % (11.5-15.5); WBC 10.8 k/uL (3.8-10.6)
[2018-11-22 15:46] LABS: ALT 20 U/L (9-52); AST 17 U/L (14-36); Albumin 4.1 g/dL (3.5-5.0); Alkaline Phosphatase 72 U/L (38-126); Amylase 42 U/L (30-110); Anion Gap 9 mmol/L; Blood Urea Nitrogen 17 mg/dL (7-17); Calcium 9.8 mg/dL (8.4-10.2); Carbon Dioxide 26 mmol/L (22-30); Chloride 108 mmol/L (98-107); Glucose 77 mg/dL (74-99); Lipase 76 U/L (23-300); Potassium 3.9 mmol/L (3.5-5.1); Sodium 143 mmol/L (137-145); Total Bilirubin 0.3 mg/dL (0.2-1.3); Total Protein 6.7 g/dL (6.3-8.2)
[2018-11-22 15:57] LABS: INR 0.9 (<1.2); Prothrombin Time 9.5 sec (9.0-12.0)
[2018-11-22 16:36] LABS: Partial Thromboplastin Time 20.8 sec (22.0-30.0)
--- NOTE | 2018-11-22 16:50 | CT ---
EXAMINATION TYPE: CT abdomen pelvis wo con DATE OF EXAM: 11/22/2018 COMPARISON: 11/08/2018 HISTORY: Left sided pain with bleeding from pain pump insertion site. patient had a refill of dilaudi d to pump [address] DLP: 370 mGycm Automated exposure control for dose reduction was used. TECHNIQUE: Helical acquisition of images was performed from the lung bases through the pelvis. FINDINGS: Lung bases are clear of consolidation. There is hiatal hernia. There are surgical clips at the stomac h. Spleen appears normal. There is vascular calcification. There is no evidence of pancreatic mass. T here are clips from cholecystectomy. There is dilation of the biliary tree. Common bile duct measures up to 2 cm. There is no adrenal mass. Kidneys show no hydronephrosis. There is large cortical cyst anterior right kidney that measures 6 cm. There is no retroperitoneal adenopathy. There is no free fluid in the pel vis. Bladder distends smoothly. There is no inguinal hernia. There is no evidence of a bowel obstruct ion. There is device implanted over the left lower back posteriorly. There is device implanted over the left anterior abdomen. There is minimal subluxation at L4-5 with f acet arthropathy and resultant mild spinal stenosis. I see no bony destructive process. There is no mesenteric edema. There is no sign of free air. I see no fluid collection around the implanted devices. There is intramedullary sharon in the left femur . IMPRESSION: MODERATELY DILATED BILIARY TREE NOT SIGNIFICANTLY DIFFERENT THAN RECENT EXAM. I DO NOT SEE CAUSE FOR LEFT SIDE PAIN. STABLE SIGMOID DIVERTICULOSIS. L4-5 BONY SPINAL STENOSIS.
[2018-11-22 17:48] VITALS: BP 159/81; PULSE 72; RESP 18; TEMP 98.3
== END 2018-11-22 17:46 | disposition home or self-care (01) ==
LOC: EC 14:05
DX: T85.838A Hemorrhage due to other internal prosthetic devices, implants and grafts, initial encounter (principal); J45.909 Unspecified asthma, uncomplicated; M79.7 Fibromyalgia; I12.9 Hypertensive chronic kidney disease with stage 1 through stage 4 chronic kidney disease, or unspecified chronic kidney disease; N18.3 Chronic kidney disease, stage 3 (moderate); E07.9 Disorder of thyroid, unspecified; M19.90 Unspecified osteoarthritis, unspecified site; F41.9 Anxiety disorder, unspecified; F32.9 Major depressive disorder, single episode, unspecified; G47.33 Obstructive sleep apnea (adult) (pediatric); Z86.73 Personal history of transient ischemic attack (TIA), and cerebral infarction without residual deficits; Z85.830 Personal history of malignant neoplasm of bone; Z96.651 Presence of right artificial knee joint; Z86.14 Personal history of Methicillin resistant Staphylococcus aureus infection; Z95.818 Presence of other cardiac implants and grafts; Z79.02 Long term (current) use of antithrombotics/antiplatelets; Z79.890 Hormone replacement therapy; Z79.82 Long term (current) use of aspirin; Z79.891 Long term (current) use of opiate analgesic; Z79.899 Other long term (current) drug therapy; Z88.8 Allergy status to other drugs, medicaments and biological substances; Z88.1 Allergy status to other antibiotic agents; Z88.6 Allergy status to analgesic agent; Z88.7 Allergy status to serum and vaccine; Z91.041 Radiographic dye allergy status; Z88.4 Allergy status to anesthetic agent; Z88.5 Allergy status to narcotic agent; Z91.011 Allergy to milk products; Z91.018 Allergy to other foods; Z88.0 Allergy status to penicillin; Z91.013 Allergy to seafood; Z88.2 Allergy status to sulfonamides; Z91.048 Other nonmedicinal substance allergy status
CPT/HCPCS: 36415; 86900; 86901; 80053; 82150; 83690; 85025; 85610; 85730; 86850; 74176; 99285; 96374; J1170

== ENCOUNTER → 2020-05-08 | Outpatient (CLI) | payer MEDICARE ==
[2020-05-08 11:05] LABS: African American GFR (CKD) >90 (>60 ml/min/1.73 sqM); Blood Urea Nitrogen 15 mg/dL (7-17); Non-African American GFR(CKD) 88 (>60 ml/min/1.73 sqM)
--- NOTE | 2020-05-08 12:07 | CT ---
EXAMINATION TYPE: CT brain wo con DATE OF EXAM: 05/08/2020 HISTORY: TIA. Acute onset weakness. CT DLP: 1017.9 mGycm. Automated Exposure Control for Dose Reduction was Utilized. TECHNIQUE: CT scan of the head is performed without contrast. COMPARISON: CT brain October 15, 2018. FINDINGS: There is no acute intracranial hemorrhage or midline shift identified. There is diffuse v entricular and sulcal prominence consistent with diffuse age-related cerebral atrophy. There is low- attenuation in the periventricular white matter consistent with chronic small vessel ischemic change. Nasal septum redemonstrated deviated to right of midline. Stable slightly low lying cerebellar tons ils sagittal image 27. No greater than 5 mm inferior displacement into foramen magnum noted. The glob es are intact and the visualized sinuses are clear. IMPRESSION: No acute intracranial hemorrhage or midline shift. There is mild to moderate diffuse ag e-related cerebral atrophy and chronic small vessel ischemic change redemonstrated. No significant c hange from prior CT.
--- NOTE | 2020-05-08 12:16 | CT ---
EXAMINATION TYPE: CT angio head neck DATE OF EXAM: 05/08/2020 HISTORY: TIA. COMPARISON: Prior CTA head and neck September 04, 2017 CT DLP: 303.6 mGycm. Automated Exposure Control for Dose Reduction was Utilized. TECHNIQUE: CTA scan of the head and neck are performed with IV Contrast, patient injected with 65 mL of Isovue 370, axial images are obtained, coronal and sagittal reformatted images are reviewed. Thre e-D reconstructed images are created on an independent workstation and reviewed. FINDINGS: Carotid/Vascular Structures: Normal three-vessel origin from the aortic arch. Right common carotid ar christy origin from right brachiocephalic artery. No significant plaque or stenosis along course of righ t common carotid artery. Mild to moderate calcified plaque right carotid bulb with more moderate mixe d plaque extending into proximal internal carotid artery. No greater than 50% stenosis. Remainder rig ht internal carotid artery shows some tortuous course with moderate calcified plaque supraclinoid seg ment. No significant stenosis. There is moderate calcified plaque left carotid bulb with more mixed p laque extending into left internal carotid artery. No significant stenosis. Tortuous course to left i nternal carotid artery with mild calcified plaque supraclinoid segment. Patent bilateral external car otid arteries without significant plaque or stenosis. [id number] calcified plaque distal left vertebral artery. Vertebral arteries are patent to basilar junction. No significant focal stenosis or aneurysmal change . Patent right posterior indicating artery. Hypoplastic left posterior beginning artery. No significa nt focal stenosis or aneurysmal change. Anterior circulation shows less well-visualized patent anteri or communicating artery which was prior visualized small caliber. No significant focal stenosis or an eurysmal change. Other: Straightening of cervical spine with moderate narrowing C5-C6 and C6-C7 levels. IMPRESSION: 1. Stable moderate atherosclerotic change bilateral carotid bulb without hemodynamically significant stenosis greater than 50% in either common or internal carotid artery. 2. No aneurysm or new significant stenosis at level [place] of [place].
== END | disposition home or self-care (01) ==
LOC: RADCTMAIN 10:21
PROVIDERS: ATTEND Psychiatry & Neurology Neurology
DX: G31.1 Senile degeneration of brain, not elsewhere classified (principal); I67.82 Cerebral ischemia; I65.23 Occlusion and stenosis of bilateral carotid arteries; Z51.81 Encounter for therapeutic drug level monitoring
CPT/HCPCS: 82565; 84520; 70496; 70450; 70498; 36415; Q9967

== ENCOUNTER → 2020-11-09 | Outpatient (CLI) | payer MEDICARE ==
--- NOTE | 2020-11-12 08:58 | PE ---
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 TECHNIQUE: Following the intravenous administration of 13.48 mCi of F-18 FDG, whole body images are performed from the skull base to the bottom of feet. Images are reviewed on the computer in the marry nal, axial, and sagittal planes. Reconstructed rotating images are created on independent workstatio n and reviewed on the computer. A localization and attenuation correction CT is performed in conjun ction with the PET scan. Blood glucose level equals 110. SCAN: Subsequent Scan FINDINGS: SKULL BASE AND NECK: No areas of abnormal hypermetabolic uptake. Including the entire head. CHEST, MEDIASTINUM, AND HILAR REGION: Mild uptake in the right shoulder peripherally inferior muscles presumed postinflammatory. No suspicious hypermetabolic uptake in the thorax. ABDOMEN AND PELVIS: Normal excretion is present. No suspicious hypermetabolic uptake. Mild symmetric uptake in the bilateral thigh muscles lateral aspect presumed postinflammatory. OSSEOUS STRUCTURES: No suspicious hypermetabolic uptake. Lower extremities: Metallic hardware from longstem prosthesis left lower extremity is present. There is additional metallic prosthesis in the right knee. There is hypermetabolic uptake localized to the plantar hindfoot and midfoot muscles more prominent medially and in the right foot versus leftward pr esumed postinflammatory. No additional areas of abnormal hypermetabolic uptake. OTHER CT: Mild to moderate calcified plaque right carotid bulb. Moderate to borderline severe calcifi ed plaque left carotid bulb. Small sized thyroid gland. Mild cardiomegaly. Coronary artery calcificat ion is present which is noted marker for underlying coronary artery disease. Surgical changes from gastric sleeve. Air-fluid level in the distal esophagus. Small sliding hiatal h ernia. Cholecystectomy clips. Cortical thinning in both kidneys. There is 7.0 cm partially exophytic thin-walled cyst anteriorly ri ght kidney with posterior 4 mm calcific focus. Sigmoid colonic diverticula. Scattered phlebolith. [place] alondra surgically absent. Spinal stimulator device terminates in the mid thoracic spinal canal. IMPRESSION: No suspicious abnormal hypermetabolic uptake to suggest recurrent active neoplasm.
== END | disposition home or self-care (01) ==
LOC: RADPETMAIN 13:36
PROVIDERS: ATTEND Family Medicine
DX: C49.22 Malignant neoplasm of connective and soft tissue of left lower limb, including hip (principal)
CPT/HCPCS: 78816; A9552

== ENCOUNTER → 2021-01-11 | Outpatient (CLI) | payer MEDICARE ==
--- NOTE | 2021-01-11 12:33 | BD ---
EXAMINATION TYPE: Axial Bone Density DATE OF EXAM: 01/11/2021 COMPARISON: 01/03/2016 CLINICAL HISTORY: Height: 59.7 IN Weight: 172 LBS FRAX RISK QUESTIONS: Secondary Osteoporosis: 3. Menopause before 45: TOTAL HYST AGE 27 RISK FACTORS HISTORY OF: PT STATES SHE HAS FX RT SHOULDER 2014; LT WRIST AGE 48; RT FOOT AGE 71 History of Wrist Fracture: LT WRIST FX AGE 48 Surgery to Hip(left): 1999 Active: LIMITED Diet low in dairy products/other sources of calcium: YES Postmenopausal woman: TOTAL HYST AGE 27 Frequent falls: YES FALLS DUE TO LOSS OF BALANCE FROM STROKES Poor Health: YES MEDICATIONS: Thyroid Medications: YES Which medication: Synthroid How Long: SINCE 1985 Additional Medications: CALCIUM, VIT D, SYNTHROID,HIGH BLOOD PRESSURE MEDS, PAIN MEDS, HEART MEDS, CH OLESTEROL, FIBROMYALGIA MEDS, Additional History: BONE CANCER WITH RADIATION EXAM MEASUREMENTS: Bone mineral densitometry was performed using the [employer] System. Bone mineral density as measured about the Lumbar spine is: ----- L1-L4(G/cm2): 1.114 T Score Values are as follows: ----- L2: 0.1 ----- L3: -0.5 ----- L4: -0.7 ----- L1-L4: -0.5 Bone mineral density has: Increased 4.6% since study of: 01/03/2016 PT STATES LT FEMUR SURGERY 1999 Bone mineral density about the R hip (g/cm2): 0.831 T Score values are as follows: -----R Neck: -1.5 -----R Total: -1.2 Bone mineral density has: Increased 2.9% since study of: 01/03/2016 IMPRESSION: Osteopenia NOTE: T-SCORE=SD OF THE YOUNG ADULT MEAN.
== END | disposition home or self-care (01) ==
LOC: RADBDWWP 01-02 10:11
PROVIDERS: ATTEND Family Medicine
DX: Z13.820 Encounter for screening for osteoporosis (principal); M85.89 Other specified disorders of bone density and structure, multiple sites; Z78.0 Asymptomatic menopausal state
CPT/HCPCS: 77080

== ENCOUNTER → 2022-08-01 | Outpatient (CLI) | payer MEDICARE ==
--- NOTE | 2022-08-04 09:11 | NM ---
EXAMINATION TYPE: NM DatScan Brain SPECT DATE OF EXAM: 08/01/2022 COMPARISON: NONE HISTORY: Tremors TECHNIQUE: 10 drops of Lugol's solution was administered 1 hour prior to injection as a thyroid bloc bobbi agent. After the administration of 4.32 mCi I-123 Ioflupane DaTscan. Images obtained 3 hours p ost injection. SPECT images of the brain were acquired with axial and coronal reconstructions. FINDINGS: The axial SPECT images demonstrate normal background activity. Accounting for head tilt, t here appears to be slight asymmetrically blunted comma-shaped appearance of the left corpus striatum. IMPRESSION: Slightly blunted striatal activity on the left may indicate early changes of idiopathic P arkinson's disease or Parkinsonian syndrome.
== END | disposition home or self-care (01) ==
LOC: RADNMMAIN 10:55
PROVIDERS: ATTEND Psychiatry & Neurology Neurology
DX: G25.0 Essential tremor (principal)
CPT/HCPCS: 78803; A9584

== ENCOUNTER → 2022-10-22 | Outpatient (CLI) | payer MEDICARE, OTHER ==
--- NOTE | 2022-10-22 13:02 | CT ---
EXAMINATION TYPE: CT brain wo con DATE OF EXAM: 10/22/2022 COMPARISON: 05/08/2020 HISTORY: Headache CT DLP: 1098.8 mGycm Automated exposure control for dose reduction was used. FINDINGS: There is no acute intracranial hemorrhage or midline shift identified. There is diffuse ventricular a nd sulcal prominence consistent with diffuse age-related cerebral atrophy. There is low-attenuation i n the periventricular white matter consistent with chronic small vessel ischemic change. Nasal septum redemonstrated deviated to right of midline. Stable slightly low lying cerebellar tonsil s sagittal again noted. No tonsillar beaking. The globes are intact and the visualized sinuses are cl ear. Hyperostosis of the frontal bone. Intracranial atherosclerotic changes. IMPRESSION: 1. Mild generalized degenerative change in the low-attenuation white matter most remote microvascular white matter ischemia correlate with MRI as warranted. 2. Persistent low-lying cerebellar tonsils extending to the level of foramen magnum
== END | disposition home or self-care (01) ==
LOC: RADCTMAIN 12:35
PROVIDERS: ATTEND Psychiatry & Neurology Neurology
DX: G93.89 Other specified disorders of brain (principal); R90.82 White matter disease, unspecified
CPT/HCPCS: 70450

== ENCOUNTER → 2024-05-06 | Outpatient (CLI) | payer MEDICARE, OTHER ==
--- NOTE | 2024-05-06 13:42 | CT ---
EXAMINATION TYPE: CT lumbar spine wo con CT DLP: 1023.7 mGycm, Automated exposure control for dose reduction was used. DATE OF EXAM: 05/06/2024 1:27 PM COMPARISON: PET CT 11/09/2020, CT abdomen and pelvis 11/22/2018, CT lumbar spine 07/24/2017. CLINICAL INDICATION:Female, 74 years old with history of M54.5 LOW BACK PAIN M51.36 OTHER INTERVERTEB RAL DI; PHH, back pain, hx of bone ca TECHNIQUE: Multiple axial images were obtained from the midportion of T11 through the sacroiliac chuckie nts. Soft tissue and bone windows in coronal and sagittal planes were obtained and reviewed. Contrast used: none. Oral contrast used: none. FINDINGS: Alignment: There are 5 lumbar type vertebral bodies. Vertebral body heights are maintained. Mild grad e 1 anterolisthesis of L4 on L5 without evidence of pars defects. Bone: No evidence of fracture is identified. 2 spinal canal stimulator leads identified which enter the spinal canal at the L1-L2 processes and interspace. These course superiorly with distal tips not visualized. There are sterilization of the left posterior gluteal back power pack. Discs: T12-L1: No spinal canal or neural foraminal stenosis is identified. L1-L2: No spinal canal or neural foraminal stenosis is identified. L2-L3: Broad-based disc bulge with ligamentum flavum buckling contribute to mild central canal stenos is. Bilateral facet arthropathy. Mild bilateral neural foraminal stenosis. L3-L4: Broad-based disc bulge with ligamentum flavum buckling contribute to at least moderate central canal stenosis. Bilateral facet arthropathy. Mild to moderate bilateral neuroforaminal stenosis. L4-L5: Broad-based disc bulge with ligamentum flavum buckling contribute to at least moderate central canal stenosis. Bilateral facet arthropathy. Mild to moderate bilateral neuroforaminal stenosis. L5-S1: Broad-based disc bulge with minimal effacement of the anterior thecal sac. Bilateral facet art hropathy. Moderate left neural foraminal stenosis. The right neural foramen is patent. Other: Postsurgical changes from gastric sleeve with hiatal hernia identified. Postcholecystectomy ch anges with associated intra and extra hepatic biliary ductal dilatation redemonstrated. Redemonstrati on of partially visualized large right renal cyst. Sigmoid diverticulosis. Posthysterectomy changes. Pelvic phleboliths. Mild atherosclerotic calcification of the aorta and its branches. IMPRESSION: 1. No evidence for spinal fracture. 2. Moderate multilevel degenerative disc disease and facet arthropathy as described above. 3. Grade 1 anterolisthesis of L4 on L5 without evidence of pars defects. [facility], , 05/06/2024 1:40 PM
== END | disposition home or self-care (01) ==
LOC: RADCTMAIN 13:07
PROVIDERS: ATTEND Psychiatry & Neurology Neurology
DX: M47.816 Spondylosis without myelopathy or radiculopathy, lumbar region (principal); M43.16 Spondylolisthesis, lumbar region; M51.369 Other intervertebral disc degeneration, lumbar region without mention of lumbar back pain or lower extremity pain; Z87.59 Personal history of other complications of pregnancy, childbirth and the puerperium
CPT/HCPCS: 72131

== ENCOUNTER → 2024-07-01 | Outpatient (CLI) | payer MEDICARE, OTHER ==
--- NOTE | 2024-07-06 08:49 | USB ---
Reason for Exam: Clinical finding. Risk Values: Karolina 5 year model risk: 1.2%. NCI Lifetime model risk: 2.4%. Technique: Method: Targeted. Findings: The upper outer quadrant of the left breast, the axilla of the left breast and the retroareolar of the left breast were scanned. Area of mixed echogenicity left 1:00 region 6 cm from the nipple likely reflects a resolving hematoma given history of trauma. Short-term follow-up is recommended at 3 months at which point the patient is due for bilateral mammography.. Overall Assessment: Probably benign, BI-RAD 3 Management: Diagnostic Breast Ultrasound of the left breast in 3 months. A clinical breast exam by your physician is recommended on an annual basis and results should be correlated with mammographic findings. This exam should not preclude additional follow-up of suspicious palpable abnormalities. Results were given to the patient verbally at the time of exam. [facility], , 07/06/2024 8:46 AM. Electronically signed and approved by: Rio Perez M.D. Radiologis
== END | disposition home or self-care (01) ==
LOC: RADMAMWWP 07:34
PROVIDERS: ATTEND Family Medicine
DX: Z53.9 Procedure and treatment not carried out, unspecified reason (principal)

== ENCOUNTER → 2024-10-03 | Outpatient (CLI) | payer MEDICARE, OTHER ==
--- NOTE | 2024-10-03 07:18 | USB ---
Reason for Exam: Clinical finding. Risk Values: Karolina 5 year model risk: 1.2%. NCI Lifetime model risk: 2.4%. Technique: Method: Targeted. Findings: The area of palpable concern of the left breast, the axilla of the left breast and the retroareolar of the left breast were scanned. Targeted ultrasound shows no solid or cystic masses. No suspicious focal fluid collection on today's study. Prior hyperechoic area has resolved. Overall Assessment: Negative, BI-RAD 1 Management: Screening Mammogram of both breasts in 1 month. Return to routine follow-up. A clinical breast exam by your physician is recommended on an annual basis and results should be correlated with mammographic findings. This exam should not preclude additional follow-up of suspicious palpable abnormalities. Results were given to the patient verbally at the time of exam. [facility], , 10/03/2024 7:15 AM. Electronically signed and approved by: Spencer Santiago M.D.
== END | disposition home or self-care (01) ==
LOC: RADUSWWP 06:42
PROVIDERS: ATTEND Family Medicine
DX: R92.8 Other abnormal and inconclusive findings on diagnostic imaging of breast (principal)

== ENCOUNTER → 2024-10-03 | Outpatient (CLI) | payer MEDICARE, OTHER ==
[2024-10-03 10:36] LABS: ALT 13 U/L (8-44); AST 22 U/L (13-35); Albumin 4.3 g/dL (3.8-4.9); Albumin/Globulin Ratio 1.72 Ratio (1.60-3.17); Alkaline Phosphatase 88 U/L (41-126); BUN/Creat Ratio 26.11 Ratio (12.00-20.00); Blood Urea Nitrogen 23.5 mg/dL (9.0-27.0); Calcium 9.7 mg/dL (8.7-10.3); Carbon Dioxide 26.6 mmol/L (21.6-31.8); Chloride 101 mmol/L (96-109); Chol/HDL Ratio 2.97 Ratio; Globulin 2.5 g/dL (1.6-3.3); Glucose 104 mg/dL (70-110); LDL Cholesterol,Calculated 137.1 mg/dL (0.0-131.0); Sodium 141 mmol/L (135-145); Total Bilirubin 0.3 mg/dL (0.3-1.2); Total Protein 6.8 g/dL (6.2-8.2)
[2024-10-03 10:38] LABS: NT-Pro-B-Type Natriuretic Pept 610 pg/mL (0-450)
[2024-10-03 10:53] LABS: HCT 44.4 % (37.2-46.3); HGB 14.1 g/dL (12.0-15.0); MCH 28.3 pg (27.0-32.0); MCHC 31.8 g/dL (32.0-37.0); Mean Platelet Volume 10.3 FL (9.5-12.2); NRBC Per 100 WBC 0.02 X 10*3/uL (0.00-0.01); Platelet Count 361 X 10*3/uL (140-440); RBC 4.99 X 10*6/uL (4.10-5.20); RDW 13.3 % (11.5-14.5); WBC 15.13 X 10*3/uL (4.50-10.00)
== END | disposition home or self-care (01) ==
LOC: LABWHC1 06:46
PROVIDERS: ATTEND Internal Medicine Interventional Cardiology
DX: I10 Essential (primary) hypertension (principal); I42.8 Other cardiomyopathies; E78.2 Mixed hyperlipidemia; R06.02 Shortness of breath
CPT/HCPCS: 36415; 80053; 80061; 83880; 85027

== ENCOUNTER 2024-10-05 16:17 | Emergency (ER) | payer MEDICARE, OTHER ==
[2024-10-05] MEDS: SODIUM CHLORIDE 0.9% 500 ML 500 ML IV ONE (17:09)
[2024-10-05] MEDS: HYDROmorphone 0.5 MG/0.5 ML SYRINGE IVP STA (17:10)
[2024-10-05 17:19] LABS: Basophils # (A) 0.1 k/uL (0-0.2); Basophils % (A) 1 %; Eosinophils # (A) 0.4 k/uL (0-0.7); Eosinophils % (A) 3 %; HCT 42.8 % (34.0-46.0); HGB 13.8 gm/dL (11.4-16.0); Lymphocytes # (A) 3.4 k/uL (1.0-4.8); Lymphocytes % (A) 28 %; MCH 27.9 pg (25.0-35.0); MCHC 32.1 g/dL (31.0-37.0); MCV 86.9 fL (80.0-100.0); Mean Platelet Volume 7.3; Monocytes # (A) 0.5 k/uL (0-1.0); Monocytes % (A) 4 %; Neutrophils # (A) 7.7 k/uL (1.3-7.7); Neutrophils % (A) 63 %; Platelet Count 311 k/uL (150-450); RBC 4.93 m/uL (3.80-5.40); RDW 13.6 % (11.5-15.5); WBC 12.3 k/uL (3.8-10.6)
[2024-10-05 17:21] LABS: Appearance,Urine Cloudy (Clear); Bilirubin,Urine Negative (Negative); Blood,Urine Negative (Negative); Color,Urine Yellow; Glucose,Urine (UA) Negative (Negative); Ketones,Urine Negative (Negative); Leukocyte Esterase,Urine Negative (Negative); Mucus,Urine Rare /hpf; Nitrite,Urine Negative (Negative); PH, Urine 5.5 (5.0-8.0); Protein,Urine Trace (Negative); RBC,Urine 11 /hpf (0-5); Specific Gravity,Urine 1.025 (1.001-1.035); Squamous Epithelial Cell,Urine 1 /hpf (0-4); Urobilinogen,Urine <2.0 mg/dL (<2.0); WBC,Urine 7 /hpf (0-5)
[2024-10-05 17:23] LABS: ALT 13 U/L (4-34); AST 23 U/L (14-36); African American GFR (CKD) 57 (>60 ml/min/1.73 sqM); Albumin 4.1 g/dL (3.5-5.0); Alkaline Phosphatase 70 U/L (38-126); Anion Gap 8 mmol/L; Blood Urea Nitrogen 24 mg/dL (7-17); Calcium 9.5 mg/dL (8.4-10.2); Carbon Dioxide 23 mmol/L (22-30); Chloride 104 mmol/L (98-107); Glucose 102 mg/dL (74-99); Magnesium 1.9 mg/dL (1.6-2.3); Non-African American GFR(CKD) 50 (>60 ml/min/1.73 sqM); Potassium 4.1 mmol/L (3.5-5.1); Sodium 135 mmol/L (137-145); Total Bilirubin 0.6 mg/dL (0.2-1.3); Total Protein 6.7 g/dL (6.3-8.2)
--- NOTE | 2024-10-05 17:45 | XR ---
EXAMINATION TYPE: XR ribs LT w pa chest xray DATE OF EXAM: 10/05/2024 5:37 PM COMPARISON: Prior chest radiograph, most recently dated 03/09/2024. CLINICAL INDICATION: Female, 74 years old with history of inferior rib pain; PHH, pain TECHNIQUE: XR ribs LT w pa chest xray; Frontal and oblique views of the ribs with frontal chest radio graph. FINDINGS: The ribs have a normal appearance. No evidence of fracture. Overall, the lungs are clear. The cardiac silhouette is normal in size. The remaining osseous structures are intact. Spinal stimu lator device. Previous cholecystectomy. IMPRESSION: No acute displaced rib fracture or other acute osseous rib lesion identified. [facility], , 10/05/2024 5:42 PM
--- NOTE | 2024-10-05 18:20 | ED ---
General Adult HPI - General Chief complaint: Abdominal Pain Stated complaint: left abdominal pain Time Seen by Provider: 10/05/24 16:55 Source: patient, RN notes reviewed, old records reviewed Mode of arrival: wheelchair Limitations: no limitations - History of Present Illness Initial comments: Patient is a 74-year-old female presents emergency department complaining of what she describes as abdominal pain but seems to be more left anterior rib pain. States has been ongoing since she fell in June but worse over the last few days. Denies any nausea or vomiting. Denies diarrhea. Denies any radiation of the pain. Denies any upper chest pain. Denies any shortness of breath. Denies any fevers, chills, cough. Presents for further evaluation. He has a history of kidney stones and states that she is concerned this may be it however states that her kidney stone pain was not similar to this as it was more in the lower abdomen and flank versus along the rib. Worse with movements and direct palpation of the rib. - Related Data Home Medications Medication Instructions Recorded Confirmed Clopidogrel [Plavix] 75 mg PO DAILY 01/04/14 09/23/24 DULoxetine HCL [Cymbalta] 60 mg PO BID 01/04/14 09/23/24 Levothyroxine Sodium [Synthroid] 88 mcg PO QAM 01/04/14 09/23/24 Aspirin 81 mg PO HS 02/07/14 09/23/24 Biotin 5 mg PO DAILY 04/26/15 09/23/24 Carbidopa-Levodopa 25-100 mg 1 tab PO HS 03/26/18 09/23/24 [Sinemet 25-100 mg] Cholecalciferol [Vitamin D3 (25 5,000 unit PO DAILY 03/26/18 09/23/24 Mcg = 1000 Iu)] Fluticasone Nasal [place] [Flonase 1 spray EA NOSTRIL DAILY 06/23/18 09/23/24 Nasal [place]] Metoprolol Tartrate [Lopressor] 50 mg PO BID 06/23/18 09/23/24 Acetaminophen Tab [Tylenol Tab] 1,000 mg PO Q6HR PRN 11/08/18 09/23/24 Dilaudid Pain Pump 1 dose INTRATHECA DIRECTED 11/08/18 09/23/24 EPINEPHrine (Auto Inject) [Epipen] 0.3 mg IM ONCE PRN 11/08/18 09/23/24 Memantine [Namenda] 5 mg PO BID 11/08/18 09/23/24 Montelukast [Singulair] 10 mg PO DAILY 11/08/18 09/23/24 Valsartan 1 tab PO DAILY 08/24/24 09/23/24 predniSONE [Deltasone] 20 mg PO DAILY 09/16/24 09/23/24 Previous Rx's Medication Instructions Recorded Albuterol Nebulized [Ventolin 2.5 mg INHALATION RT-QID #0 07/01/18 Nebulized] Allergies Allergy/AdvReac Type Severity Reaction Status Date / Time aripiprazole [From Abilify] Allergy Anaphylaxis Verified 10/05/24 16:25 baclofen Allergy Anaphylaxis Verified 10/05/24 16:25 butalbital [From Fioricet] Allergy Rash/Hives Verified 10/05/24 16:25 cefadroxil hydrate Allergy Rash/Hives Verified 10/05/24 16:25 [From Duricef] cefazolin sodium Allergy Anaphylaxis Verified 10/05/24 16:25 [From Kefzol] cephalexin monohydrate Allergy Anaphylaxis Verified 10/05/24 16:25 [From Keflex] ciprofloxacin [From Cipro] Allergy Swelling Verified 10/05/24 16:25 OF THROAT ,RASH AND HIVES ciprofloxacin HCl Allergy Rash/Hives, Verified 10/05/24 16:25 [From Cipro] SWELLING OF THROAT clindamycin HCl Allergy Unknown Verified 10/05/24 16:25 [From Cleocin] clindamycin palmitate HCl Allergy Unknown Verified 10/05/24 16:25 [From Cleocin] clindamycin phosphate Allergy Unknown Verified 10/05/24 16:25 [From Cleocin] dexamethasone [From Decadron] Allergy Anaphylaxis Verified 10/05/24 16:25 dexamethasone sod phosphate Allergy Anaphylaxis Verified 10/05/24 16:25 [From Decadron] ,RASH divalproex sodium Allergy Rash/Hives Verified 10/05/24 16:25 [From Depakote] hydroxyzine HCl [From Atarax] Allergy Unknown Verified 10/05/24 16:25 ibuprofen [From Motrin] Allergy RASH Verified 10/05/24 16:25 ,ITCHING SWELLING OF THROAT influenza virus vaccine, Allergy Anaphylaxis Verified 10/05/24 16:25 specific [Influenza Virus Vacc,Specific] Iodinated Contrast Media Allergy Anaphylaxis Verified 10/05/24 16:25 [Iodinated Contrast- Oral and IV Dye] ketorolac tromethamine Allergy Chest Pain Verified 10/05/24 16:25 [From Toradol] lidocaine HCl Allergy Anaphylaxis Verified 10/05/24 16:25 [From Xylocaine] lisinopril Allergy Swelling Verified 10/05/24 16:25 meperidine HCl [From Demerol] Allergy Rash/Hives Verified 10/05/24 16:25 Milk Containing Products Allergy ABDOMINAL Verified 10/05/24 16:25 (Dairy) PAIN [Milk Containing Products] NAUSEA AND VOMITING morphine Allergy Vomiting Verified 10/05/24 16:25 Mushroom Allergy Anaphylaxis Verified 10/05/24 16:25 nortriptyline HCl Allergy Unknown Verified 10/05/24 16:25 [From Pamelor] omalizumab [From Xolair] Allergy Anaphylaxis Verified 10/05/24 16:25 Penicillins Allergy Rash/Hives Verified 10/05/24 16:25 pregabalin [From Lyrica] Allergy Rash/Hives Verified 10/05/24 16:25 procaine HCl [From Novocain] Allergy Unknown Verified 10/05/24 16:25 shellfish derived Allergy Anaphylaxis Verified 10/05/24 16:25 sulfamethoxazole Allergy Unknown Verified 10/05/24 16:25 [From Septra] tetracycline [Tetracycline] Allergy Rash/Hives Verified 10/05/24 16:25 theophylline anhydrous Allergy Unknown Verified 10/05/24 16:25 [From Joel-Dur] triamcinolone Allergy Anaphylaxis Verified 10/05/24 16:25 trimethoprim [From Septra] Allergy RASH, Verified 10/05/24 16:25 ITCHING vancomycin Allergy ITCHING Verified 10/05/24 16:25 ,HIVES wheat Allergy Rash/Hives Verified 10/05/24 16:25 yellow dye Allergy Anaphylaxis Verified 10/05/24 16:25 erythromycin base AdvReac Rash/Hives Verified 10/05/24 16:25 fentanyl [From Duragesic] AdvReac Unknown Verified 10/05/24 16:25 NSAIDS (Non-Steroidal AdvReac Unknown Verified 10/05/24 16:25 Anti-Inflamma verapamil AdvReac Rash/Hives Verified 10/05/24 16:25 PAPER TAPE Allergy Rash/BLISTE Uncoded 10/05/24 16:25 RS PERSERATIVE IN ALBUTEROL Allergy Dyspnea Uncoded 10/05/24 16:25 INHALER PU steroids Allergy Rash/Hives Uncoded 10/05/24 16:25 WHITE SUTURE Allergy Swelling Uncoded 10/05/24 16:25 Review of Systems ROS Statement: Those systems with pertinent positive or pertinent negative responses have been documented in the HPI. Review of Systems: CONST: Denies fever EYES: Denies blurry vision ENT: Denies nasal congestion C/V: Denies Chest pain RESP: Denies shortness of breath GI: Denies abd pain : Denies dysuria SKIN: Denies rash. MSK: Endorses rib pain NEURO: Denies headache ROS Other: All systems not noted in ROS Statement are negative. Past Medical History Past Medical History: Asthma, Cancer, Chest Pain / Angina, CVA/TIA, Fibr omyalgia, GERD/Reflux, Hyperlipidemia, Hypertension, Osteoarthritis (OA), Renal Disease, Thyroid Disorder Additional Past Medical History / Comment(s): Pt recently admitted to [facility] on 03/26/18 with UTI/sepsis, hyponatremia/SIADH, hypomagnesemia, hypokalemia and bacterial MRSA. Other HX: Frequent falls, bilateral weakness from CVAs and loss of equalibrium-also had bilateral facial droops that resolve, pt states she has had 6 CVAs total, TIAs, L leg bone cancer and entire leg has titanium rods, R knee arthroplasty-pt fell and damaged artificial joint, chronic back p ain, carpal tunnel syndrome bilateral elbows/shoulders, DJD, diabetes insipidus, LAUREN with no device since weight loss, CKD stage III, KOOTENAI bilaterally, anemia. History of Any Multi-Drug Resistant Organisms: MRSA Date of last positivie culture/infection: 03/26/18 MDRO Source:: BLOOD Past Surgical History: Appendectomy, Back Surgery, Bariatric Surgery, Cholecystectomy, Heart Catheterization, Hysterectomy, Joint Replacement, Orthopedic Surgery, Tubal Ligation Additional Past Surgical History / Comment(s): 04/02/18 PICC line for ABX, Lap band with removal, gastric sleeve, L leg titanium rods, R total knee arthroplasty, bilateral wrist carpal tunnel releases, R great toe surgery to remove a growth, lithotripsy, pain stimulator-nonfunctioning, pain clinic procedures, bilateral cataract removals. Past Anesthesia/Blood Transfusion Reactions: Previous Problems w/ Anesthesia Additional Past Anesthesia/Blood Transfusion Reaction / Comment(s): Slow to wake. Past Psychological History: Anxiety, Depression, Panic Disorder Smoking Status: Never smoker - Past Family History Father Additional Family Medical History / Comment(s): pt was 7 years old when her father was murdered/ from gsw Mother Family Medical History: CVA/TIA Daughter(s) Family Medical History: Deep Vein Thrombosis (DVT) Additional Family Medical History / Comment(s): dvt General Exam - General Exam Comments Initial Comments: General: Appears in no acute distress. HEAD: Normal with no signs of head trauma. EYES: PERRLA, EOMI, conjunctiva normal, no discharge. Pupils are 3 mm and equal bilaterally. ENT: Hearing grossly intact, normal oropharynx. RESPIRATORY: Clear breath sounds bilaterally. No wheezes, rales, or rhonchi. C/V: Regular rate and rhythm. S1 and S2 auscultated, no edema, peripheral pulses 2+ and intact throughout ABD: Abd is soft, nontender, nondistended EXT: Normal range of motion, no obvious deformity no flail chest. Tenderness palpation over the anterior inferior most left rib. Directly tender on palpation along this rib over to the anterior axillary line. No obvious deformity palpated. SKIN: No rashes or lesions observed on exposed skin. NEURO: Alert and oriented x 4. Cranial nerves II-XII intact. No focal sensory or strength deficits. Limitations: no limitations Course Vital Signs 10/05/24 10/05/24 16:19 19:24 Temperature 97.4 F L Pulse Rate 87 77 Respiratory 18 16 Rate Blood Pressure 115/61 135/81 O2 Sat by Pulse 96 97 Oximetry Medical Decision Making - Medical Decision Making Was pt. sent in by a medical professional or institution (, PA, [employer], urgent care, hospital, or custodial...) When possible be specific @ -No Did you speak to anyone other than the patient for history (EMS, parent, family, police, friend...)? What history was obtained from this source @ -No Did you review nursing and triage notes (agree or disagree)? Why? @ -I reviewed and agree with nursing and triage notes Were old charts reviewed (outside hosp., previous admission, EMS record, old EKG, old radiological studies, urgent care reports/EKG's, custodial records)? Report findings @ -No old charts were reviewed Differential Diagnosis (chest pain, altered mental status, abdominal pain women, abdominal pain men, vaginal bleeding, weakness, fever, dyspnea, syncope, headache, dizziness, GI bleed, back pain, seizure, CVA, palpatations, mental health, musculoskeletal)? @ -Differential Musculoskeletal Muscular strain, contusion, ligament sprain, fracture, arthritis, septic arthritis, bursitis, cellulitis, muscle spasm, nerve compression, DVT, arterial occlusion, herpes zoster, electrolyte abnormality, tumor.... This is not meant to be in all inclusive list EKG interpreted by me (3pts min.). @ -As above X-rays interpreted by me (1pt min.). @ -Chest x-ray rib x-ray negative for any obvious acute injury CT interpreted by me (1pt min.). @ -CT abdomen pelvis shows no obvious acute intra-abdominal process. U/S interpreted by me (1pt. min.). @ -None done What testing was considered but not performed or refused? (CT, X-rays, U/S, labs)? Why? @ -None What meds were considered but not given or refused? Why? @ -None Did you discuss the management of the patient with other professionals (professionals i.e. , PA, [employer], lab, RT, psych nurse, clinical social work aide, security representative, teacher, corporate security officer, manager of case management)? Give summary @ -No Was smoking cessation discussed for >3mins.? @ -No Was critical care preformed (if so, how long)? @ -No Were there social determinants of health that impacted care today? How? (Homelessness, low income, unemployed, alcoholism, drug addiction, transportation, low edu. Level, literacy, decrease access to med. care, shelter, rehab)? @ -No Was there de-escalation of care discussed even if they declined (Discuss DNR or withdrawal of care, Hospice)? DNR status @ -No What co-morbidities impacted this encounter? (DM, HTN, Smoking, COPD, CAD, Cancer, CVA, ARF, Chemo, Hep., AIDS, mental health diagnosis, sleep apnea, morbid obesity)? @ -None Was patient admitted / discharged? Hospital course, mention meds given and route, prescriptions, significant lab abnormalities, going to OR and other pertinent info. @ -Presents with left-sided reproducible chest wall pain along the inferior most rib in the anterior aspect of the chest with radiation along the rib to the anterior axillary line on the left. Worse with movement as well as on p alpation. Has been present for 2 months. Denies any nausea or vomiting. Denies any diarrhea. Has no other acute complaints. Presents for further evaluation. He is on pain medications at home. States Dilaudid helps with pain. Vitals within acceptable limits. She will be given IV fluids as well as a dose of Dilaudid. We will obtain chest x-ray with ribs, as well as general workup. Patient was in agreement this plan. No concern for this being ACS at this time. EKG showed no signs of acute ischemia. Laboratory studies are unremarkable. CKD present but this is within baseline. Mild leukocytosis which is likely reactive. Urinalysis shows 11 RBCs but no evidence of infection. Chest x-ray negative for any obvious acute injury. I did update the patient. Pain is resolved. She is asking that I obtain CT abdomen pelvis to rule out kidney stone as she was concerned this was the cause of her pain. We did discuss this is likely not the cause however we will obtain CT abdomen pelvis as she states she may be back anyways. CT abdomen pelvis negative for any obvious acute process. I discussed results with patient. She remains pain-free at this time. She will follow-up with her PCP. Strict return precautions discussed. We discussed her symptoms are likely related to chest wall pain, which is chronic for the last 2 months and located over the inferior aspect of the left rib with no change in symptoms. I instructed the patient to follow up with their PCP in the next 1-3 days. I explained that the patient should return to the emergency department if they experience any worsening symptoms. Strict return precautions were discussed with the patient. The patient expressed understanding of these instructions. I answered all questions that the patient had. The patient was discharged home in good condition with their prescriptions and follow up information. Undiagnosed new problem with uncertain prognosis? @ -No Drug Therapy requiring intensive monitoring for toxicity (Heparin, Nitro, Insulin, Cardizem)? @ -No Were any procedures done? @ -No Diagnosis/symptom? @ -Left rib pain Acute, or Chronic, or Acute on Chronic? @ -Acute on chronic Uncomplicated (without systemic symptoms) or Complicated (systemic symptoms)? @ -Uncomplicated Side effects of treatment? @ -No Exacerbation, Progression, or Severe Exacerbation? @ -No Poses a threat to life or bodily function? How? (Chest pain, [place], [place], pneumonia, PE, COPD, DKA, ARF, appy, cholecystitis, CVA, Diverticulitis, Homicidal, Suicidal, threat to staff... and all critical care pts) @ -Unlikely at this time - Lab Data Result diagrams: 10/05/24 17:00 10/05/24 17:00 Lab Results 10/05/24 10/05/24 10/05/24 Range/Units 17:00 17:00 17:00 WBC 12.3 H (3.8-10.6) k/uL RBC 4.93 (3.80-5.40) m/uL Hgb 13.8 (11.4-16.0) gm/dL Hct 42.8 (34.0-46.0) % MCV 86.9 (80.0-100.0) fL MCH 27.9 (25.0-35.0) pg MCHC 32.1 (31.0-37.0) g/dL RDW 13.6 (11.5-15.5) % Plt Count 311 (150-450) k/uL MPV 7.3 Neutrophils % 63 % Lymphocytes % 28 % Monocytes % 4 % Eosinophils % 3 % Basophils % 1 % Neutrophils # 7.7 (1.3-7.7) k/uL Lymphocytes # 3.4 (1.0-4.8) k/uL Monocytes # 0.5 (0-1.0) k/uL Eosinophils # 0.4 (0-0.7) k/uL Basophils # 0.1 (0-0.2) k/uL Sodium 135 L (137-145) mmol/L Potassium 4.1 (3.5-5.1) mmol/L Chloride 104 (98-107) mmol/L Carbon Dioxide 23 (22-30) mmol/L Anion Gap 8 mmol/L BUN 24 H (7-17) mg/dL Creatinine 1.09 H (0.52-1.04) mg/dL Est GFR (CKD-EPI)AfAm 57 (>60 ml/min/1.73 sqM) Est GFR (CKD-EPI)NonAf 50 (>60 ml/min/1.73 sqM) Glucose 102 H (74-99) mg/dL Calcium 9.5 (8.4-10.2) mg/dL Magnesium 1.9 (1.6-2.3) mg/dL Total Bilirubin 0.6 (0.2-1.3) mg/dL AST 23 (14-36) U/L ALT 13 (4-34) U/L Alkaline Phosphatase 70 (38-126) U/L Total Protein 6.7 (6.3-8.2) g/dL Albumin 4.1 (3.5-5.0) g/dL Urine Color Yellow Urine Appearance Cloudy H (Clear) Urine pH 5.5 (5.0-8.0) Ur Specific [place] 1.025 (1.001-1.035) Urine Protein Trace H (Negative) Urine Glucose (UA) Negative (Negative) Urine Ketones Negative (Negative) Urine Blood Negative (Negative) Urine Nitrite Negative (Negative) Urine Bilirubin Negative (Negative) Urine Urobilinogen <2.0 (<2.0) mg/dL Ur Leukocyte Esterase Negative (Negative) Urine RBC 11 H (0-5) /hpf Urine WBC 7 H (0-5) /hpf Ur Squamous Epith Cells 1 (0-4) /hpf Urine Mucus Rare H (None) /hpf - EKG Data -: EKG Interpreted by Me EKG Comments: 12-lead Electrocardiogram Interpretation Note EKG was reviewed and interpreted by myself. 12-lead ECG performed at 1706 is interpreted by me as revealing normal sinus rhythm at a rate of 77 beats per minute. Mcgrady is normal. MA interval is 160 ms, QRS duration is 102 ms, QTc is 411 ms. There were no ST or T wave abnormalities to suggest myocardial ischemia or injury. R wave progression across the precordium was satisfactory. By my interpretation this EKG is non-diagnostic for acute ischemia. Disposition Clinical Impression: Rib pain on left side Disposition: HOME SELF-CARE Condition: Good Instructions (If sedation given, give patient instructions): Costochondritis (ED) Is patient prescribed a controlled substance at d/c from ED?: No Referrals: Kaur Cabello MD [Primary Care Provider] - 1-2 days Time of Disposition: 19:51
--- NOTE | 2024-10-05 19:19 | CT ---
EXAMINATION TYPE: CT abdomen pelvis wo con DATE OF EXAM: 10/05/2024 6:57 PM COMPARISON: Previous CT abdomen/pelvis 11/22/2018. CLINICAL INDICATION: Female, 74 years old with history of left flank pain; Pt is having flank pain bi laterally tht started this morning, pt has hx of kidney failure. Pt is having some abdominal pain as well. Some n/v. TECHNIQUE: Axial CT abdomen pelvis wo con;Sagittal and coronal reformats were created on a separate workstation. CT DLP: 677 mGycm, Automated exposure control for dose reduction was used. FINDINGS: LOWER CHEST: Unremarkable ABDOMEN LIVER: Unremarkable GALLBLADDER AND BILE DUCTS: Gallbladder is surgically absent with mild intrahepatic and extra hepatic biliary dilatation likely physiologic and a postcholecystectomy change. No evidence of choledocholit hiasis. PANCREAS: Unremarkable. SPLEEN: Unremarkable. ADRENAL GLANDS: Unremarkable. KIDNEYS AND URETERS: No evidence of hydronephrosis or renal calculus. The ureters are unremarkable. Large exophytic right renal cyst measuring 8.7 cm demonstrating simple Hounsfield attenuation. PELVIS BLADDER: No evidence for wall thickening or mass given limitations of exam. REPRODUCTIVE: Unremarkable. ABDOMEN & PELVIS STOMACH AND BOWEL: Small to moderate-sized hilar hernia with postoperative changes suggesting previou s sleeve gastrectomy.Colonic diverticulosis without acute diverticulitis. Moderate colonic stool hailee en. No evidence of bowel obstruction. PERITONEUM/RETROPERITONEUM: No evidence of pneumoperitoneum or free fluid. VASCULATURE: No evidence of aortic aneurysm. MUSCULOSKELETAL: No acute osseous abnormalities. Multilevel lumbosacral spinal degenerative changes w ith grade 1 anterolisthesis of L4 on L5. Spinal stimulator device noted with lead entering the spinal canal at approximately L1-L2. Previous ORIF of the proximal left femur. LYMPH NODES: No gross evidence for lymphadenopathy. SOFT TISSUE/ABDOMINAL WALL: Unremarkable IMPRESSION: No acute abnormality in the abdomen/pelvis or CT findings to explain reported symptoms. [facility], , 10/05/2024 7:16 PM
[2024-10-05 20:02] VITALS: BP 151/88; PULSE 82; RESP 18; TEMP 96.7
== END 2024-10-05 20:01 | disposition home or self-care (01) ==
LOC: EC 16:17
DX: R07.81 Pleurodynia (principal); Z86.73 Personal history of transient ischemic attack (TIA), and cerebral infarction without residual deficits; Z88.2 Allergy status to sulfonamides; Z88.5 Allergy status to narcotic agent; Z88.6 Allergy status to analgesic agent; Z88.7 Allergy status to serum and vaccine; Z88.8 Allergy status to other drugs, medicaments and biological substances; Z91.041 Radiographic dye allergy status; Z88.0 Allergy status to penicillin; Z88.1 Allergy status to other antibiotic agents
CPT/HCPCS: 36415; 93005; 80053; 83735; 85025; 81001; 71101; 74176; 99284; 96374; 96361; J1171

== ENCOUNTER 2024-10-08 01:24 | Emergency (ER) | payer MEDICARE, OTHER ==
--- NOTE | 2024-10-08 02:18 | ED ---
Headache HPI - General Source: patient Mode of arrival: EMS Limitations: no limitations - History of Present Illness MD Complaint: headache Onset/Timin -: days(s) Onset Description: gradual Location: right, temporal Severity scale (1-10): 8 Quality: sharp Consistency: intermittent Associated Symptoms: nausea Other Symptoms: cough <Dionicio Tuttle - Last Filed: 10/08/24 04:04> <Arvin Perez - Last Filed: 10/10/24 02:44> - General Chief Complaint: Headache Stated Complaint: Head Pain Time Seen by Provider: 10/08/24 01:36 - History of Present Illness Initial Comments: This is a 74-year-old female with history of CVA and hypertension presenting via EMS for worsening right sided headache (02/26) since yesterday. Patient describes headache as "stabbing/shocking" and is intermittent with associated dizziness and nausea. Patient endorses concern for CVA without unilateral hemiplegia or paresthesia. Endorses use of Plavix. Denies fever, chills, neck stiffness, acute vision change. (Dionicio Tuttle) - Related Data Home Medications Medication Instructions Recorded Confirmed Clopidogrel [Plavix] 75 mg PO DAILY 01/04/14 09/23/24 DULoxetine HCL [Cymbalta] 60 mg PO BID 01/04/14 09/23/24 Levothyroxine Sodium [Synthroid] 88 mcg PO QAM 01/04/14 09/23/24 Aspirin 81 mg PO HS 02/07/14 09/23/24 Biotin 5 mg PO DAILY 04/26/15 09/23/24 Carbidopa-Levodopa 25-100 mg 1 tab PO HS 03/26/18 09/23/24 [Sinemet 25-100 mg] Cholecalciferol [Vitamin D3 (25 5,000 unit PO DAILY 03/26/18 09/23/24 Mcg = 1000 Iu)] Fluticasone Nasal [place] [Flonase 1 spray EA NOSTRIL DAILY 06/23/18 09/23/24 Nasal [place]] Metoprolol Tartrate [Lopressor] 50 mg PO BID 06/23/18 09/23/24 Acetaminophen Tab [Tylenol Tab] 1,000 mg PO Q6HR PRN 11/08/18 09/23/24 Dilaudid Pain Pump 1 dose INTRATHECA DIRECTED 11/08/18 09/23/24 EPINEPHrine (Auto Inject) [Epipen] 0.3 mg IM ONCE PRN 11/08/18 09/23/24 Memantine [Namenda] 5 mg PO BID 11/08/18 09/23/24 Montelukast [Singulair] 10 mg PO DAILY 11/08/18 09/23/24 Valsartan 1 tab PO DAILY 08/24/24 09/23/24 predniSONE [Deltasone] 20 mg PO DAILY 09/16/24 09/23/24 Previous Rx's Medication Instructions Recorded Albuterol Nebulized [Ventolin 2.5 mg INHALATION RT-QID #0 07/01/18 Nebulized] Allergies Allergy/AdvReac Type Severity Reaction Status Date / Time aripiprazole [From Abilify] Allergy Anaphylaxis Verified 10/08/24 02:40 baclofen Allergy Anaphylaxis Verified 10/08/24 02:40 butalbital [From Fioricet] Allergy Rash/Hives Verified 10/08/24 02:40 cefadroxil hydrate Allergy Rash/Hives Verified 10/08/24 02:40 [From Duricef] cefazolin sodium Allergy Anaphylaxis Verified 10/08/24 02:40 [From Kefzol] cephalexin monohydrate Allergy Anaphylaxis Verified 10/08/24 02:40 [From Keflex] ciprofloxacin [From Cipro] Allergy Swelling Verified 10/08/24 02:40 OF THROAT ,RASH AND HIVES ciprofloxacin HCl Allergy Rash/Hives, Verified 10/08/24 02:40 [From Cipro] SWELLING OF THROAT clindamycin HCl Allergy Unknown Verified 10/08/24 02:40 [From Cleocin] clindamycin palmitate HCl Allergy Unknown Verified 10/08/24 02:40 [From Cleocin] clindamycin phosphate Allergy Unknown Verified 10/08/24 02:40 [From Cleocin] dexamethasone [From Decadron] Allergy Anaphylaxis Verified 10/08/24 02:40 dexamethasone sod phosphate Allergy Anaphylaxis Verified 10/08/24 02:40 [From Decadron] ,RASH divalproex sodium Allergy Rash/Hives Verified 10/08/24 02:40 [From Depakote] hydroxyzine HCl [From Atarax] Allergy Unknown Verified 10/08/24 02:40 ibuprofen [From Motrin] Allergy RASH Verified 10/08/24 02:40 ,ITCHING SWELLING OF THROAT influenza virus vaccine, Allergy Anaphylaxis Verified 10/08/24 02:40 specific [Influenza Virus Vacc,Specific] Iodinated Contrast Media Allergy Anaphylaxis Verified 10/08/24 02:40 [Iodinated Contrast- Oral and IV Dye] ketorolac tromethamine Allergy Chest Pain Verified 10/08/24 02:40 [From Toradol] lidocaine HCl Allergy Anaphylaxis Verified 10/08/24 02:40 [From Xylocaine] lisinopril Allergy Swelling Verified 10/08/24 02:40 meperidine HCl [From Demerol] Allergy Rash/Hives Verified 10/08/24 02:40 Milk Containing Products Allergy ABDOMINAL Verified 10/08/24 02:40 (Dairy) PAIN [Milk Containing Products] NAUSEA AND VOMITING morphine Allergy Vomiting Verified 10/08/24 02:40 Mushroom Allergy Anaphylaxis Verified 10/08/24 02:40 nortriptyline HCl Allergy Unknown Verified 10/08/24 02:40 [From Pamelor] omalizumab [From Xolair] Allergy Anaphylaxis Verified 10/08/24 02:40 Penicillins Allergy Rash/Hives Verified 10/08/24 02:40 pregabalin [From Lyrica] Allergy Rash/Hives Verified 10/08/24 02:40 procaine HCl [From Novocain] Allergy Unknown Verified 10/08/24 02:40 shellfish derived Allergy Anaphylaxis Verified 10/08/24 02:40 sulfamethoxazole Allergy Unknown Verified 10/08/24 02:40 [From Septra] tetracycline [Tetracycline] Allergy Rash/Hives Verified 10/08/24 02:40 theophylline anhydrous Allergy Unknown Verified 10/08/24 02:40 [From Joel-Dur] triamcinolone Allergy Anaphylaxis Verified 10/08/24 02:40 trimethoprim [From Septra] Allergy RASH, Verified 10/08/24 02:40 ITCHING vancomycin Allergy ITCHING Verified 10/08/24 02:40 ,HIVES wheat Allergy Rash/Hives Verified 10/08/24 02:40 yellow dye Allergy Anaphylaxis Verified 10/08/24 02:40 erythromycin base AdvReac Rash/Hives Verified 10/08/24 02:40 fentanyl [From Duragesic] AdvReac Unknown Verified 10/08/24 02:40 NSAIDS (Non-Steroidal AdvReac Unknown Verified 10/08/24 02:40 Anti-Inflamma verapamil AdvReac Rash/Hives Verified 10/08/24 02:40 PAPER TAPE Allergy Rash/BLISTE Uncoded 10/08/24 02:40 RS PERSERATIVE IN ALBUTEROL Allergy Dyspnea Uncoded 10/08/24 02:40 INHALER PU steroids Allergy Rash/Hives Uncoded 10/08/24 02:40 WHITE SUTURE Allergy Swelling Uncoded 10/08/24 02:40 Review of Systems ROS Other: All systems not noted in ROS Statement are negative. <Dionicio Tuttle - Last Filed: 10/08/24 04:04> ROS Other: All systems not noted in ROS Statement are negative. <Arvin Perez - Last Filed: 10/10/24 02:44> ROS Statement: Those systems with pertinent positive or pertinent negative responses have been documented in the HPI. Past Medical History Past Medical History: Asthma, Cancer, Chest Pain / Angina, CVA/TIA, Fibromyalgia, GERD/Reflux, Hyperlipidemia, Hypertension, Osteoarthritis (OA), Renal Disease, Thyroid Disorder Additional Past Medical History / Comment(s): Pt recently admitted to [facility] on 03/26/18 with UTI/sepsis, hyponatremia/SIADH, hypomagnesemia, hypokalemia and bacterial MRSA. 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 History of Any Multi-Drug Resistant Organisms: MRSA Date of last positivie culture/infection: 03/26/18 MDRO Source:: BLOOD Past Surgical History: Appendectomy, Back Surgery, Bariatric Surgery, Cholecystectomy, Heart Catheterization, Hysterectomy, Joint Replacement, Orthopedic Surgery, Tubal Ligation Additional Past Surgical History / Comment(s): 04/02/18 PICC line for ABX, Lap band with removal, gastric sleeve, L leg titanium rods, R total knee arthroplasty, bilateral wrist carpal tunnel releases, R great toe surgery to remove a growth, lithotripsy, pain stimulator-nonfunctioning, pain clinic procedures, bilateral cataract removals. Past Anesthesia/Blood Transfusion Reactions: Previous Problems w/ Anesthesia Additional Past Anesthesia/Blood Transfusion Reaction / Comment(s): Slow to wake. Past Psychological History: Anxiety, Depression, Panic Disorder Smoking Status: Never smoker Past Alcohol Use History: None Reported Past Drug Use History: None Reported - Past Family History Father Additional Family Medical History / Comment(s): pt was 7 years old when her father was murdered/ from gsw Mother Family Medical History: CVA/TIA Daughter(s) Family Medical History: Deep Vein Thrombosis (DVT) Additional Family Medical History / Comment(s): dvt <Mikael Tuttleling - Last Filed: 10/08/24 04:04> General Exam Limitations: no limitations General appearance: alert, in no apparent distress Head exam: Present: atraumatic, normocephalic, normal inspection Eye exam: Present: normal appearance, PERRL, EOMI. Absent: scleral icterus, conjunctival injection, periorbital swelling ENT exam: Present: normal exam, mucous membranes moist Neck exam: Present: normal inspection. Absent: tenderness, meningismus, lymphadenopathy Respiratory exam: Present: wheezes, decreased breath sounds, prolonged expiratory. Absent: respiratory distress, rales, rhonchi, stridor, accessory muscle use Cardiovascular Exam: Present: regular rate, normal rhythm, normal heart sounds. Absent: systolic murmur, diastolic murmur, rubs, gallop, clicks GI/Abdominal exam: Present: soft, normal bowel sounds. Absent: distended, tenderness, guarding, rebound, rigid Extremities exam: Present: normal inspection, full ROM, normal capillary refill. Absent: tenderness, pedal edema, joint swelling, calf tenderness Back exam: Present: normal inspection Neurological exam: Present: alert, oriented X3, CN II-XII intact, other ([place] stroke and cerebellar test normal) Psychiatric exam: Present: normal affect, normal mood Skin exam: Present: warm, dry, intact, normal color. Absent: rash <Mikael Tuttleling - Last Filed: 10/08/24 04:04> Course Vital Signs 10/08/24 10/08/24 10/08/24 01:28 02:22 02:25 Temperature 97.9 F Pulse Rate 83 81 80 Respiratory 18 19 Rate Blood Pressure 148/73 165/100 O2 Sat by Pulse 97 98 Oximetry 10/08/24 10/08/24 02:35 06:15 Temperature 97.5 F L Pulse Rate 80 77 Respiratory 17 Rate Blood Pressure 171/87 O2 Sat by Pulse 94 L Oximetry Medical Decision Making - Lab Data Result diagrams: 10/08/24 02:29 10/08/24 02:29 <Dionicio Tuttle - Last Filed: 10/08/24 04:04> - Lab Data Result diagrams: 10/08/24 02:29 10/08/24 02:29 <Arvin Perez - Last Filed: 10/10/24 02:44> - Medical Decision Making Was pt. sent in by a medical professional or institution (, PA, COMPASS OPERATOR, urgent care, hospital, or residential...) When possible be specific @ -[No] Did you speak to anyone other than the patient for history (EMS, parent, family, police, friend...)? What history was obtained from this source @ -[No] Did you review nursing and triage notes (agree or disagree)? Why? @ -[I reviewed and agree with nursing and triage notes] Were old charts reviewed (outside hosp., previous admission, EMS record, old EKG, old radiological studies, urgent care reports/EKG's, residential records)? Report findings @ -[No old charts were reviewed] Differential Diagnosis (chest pain, altered mental status, abdominal pain women, abdominal pain men, vaginal bleeding, weakness, fever, dyspnea, syncope, headache, dizziness, GI bleed, back pain, seizure, CVA, palpatations, mental health, musculoskeletal)? @ -Differential Headache: Migraine, tension, cluster, carbon monoxide, central venous thrombosis, pension karma temporal arteritis, acute closure glaucoma, intercranial hemorrhage, m astoiditis, sinusitis, head injury, this is not meant to be an all-inclusive list. EKG interpreted by me (3pts min.). @ -Not done X-rays interpreted by me (1pt min.). @ -[None done] CT interpreted by me (1pt min.). @ -[None done] U/S interpreted by me (1pt. min.). @ -[None done] What testing was considered but not performed or refused? (CT, X-rays, U/S, labs)? Why? @ -[None] What meds were considered but not given or refused? Why? @ -[None] Did you discuss the management of the patient with other professionals (professionals i.e. , PA, COMPASS OPERATOR, lab, RT, psych nurse, administrator social welfare, library circulation assistant, teacher, department of natural resources officer, manager rn case)? Give summary @ -[No] Was smoking cessation discussed for >3mins.? @ -[No] Was critical care preformed (if so, how long)? @ -[No] Were there social determinants of health that impacted care today? How? (Homelessness, low income, unemployed, alcoholism, drug addiction, transportation, low edu. Level, literacy, decrease access to med. care, halfway, rehab)? @ -[No] Was there de-escalation of care discussed even if they declined (Discuss DNR or withdrawal of care, Hospice)? DNR status @ -[No] What co-morbidities impacted this encounter? (DM, HTN, Smoking, COPD, CAD, Cancer, CVA, ARF, Chemo, Hep., AIDS, mental health diagnosis, sleep apnea, morbid obesity)? @ -[None] Was patient admitted / discharged? Hospital course, mention meds given and route, prescriptions, significant lab abnormalities, going to OR and other pertinent info. @ -[hospital course] Undiagnosed new problem with uncertain prognosis? @ -[No] Drug Therapy requiring intensive monitoring for toxicity (Heparin, Nitro, Insulin, Cardizem)? @ -[No] Were any procedures done? @ -[No] Diagnosis/symptom? @ -[default] Acute, or Chronic, or Acute on Chronic? @ -Acute Uncomplicated (without systemic symptoms) or Complicated (systemic symptoms)? @ -Complicated Side effects of treatment? @ -[No] Exacerbation, Progression, or Severe Exacerbation? @ -[No] Poses a threat to life or bodily function? How? (Chest pain, [place], PA, pneumonia, PE, COPD, DKA, ARF, appy, cholecystitis, CVA, Diverticulitis, Homicidal, Suicidal, threat to staff... and all critical care pts) @ -[No] (Dionicio Tuttle) I have reviewed all documentation, results, and performed the MDM in its entirety, which constitutes more than 50% of the visit (Arvin Perez) - Lab Data Lab Results 10/08/24 10/08/24 Range/Units 02:29 02:29 WBC 16.3 H (3.8-10.6) k/uL RBC 4.61 (3.80-5.40) m/uL Hgb 12.8 (11.4-16.0) gm/dL Hct 39.4 (34.0-46.0) % MCV 85.5 (80.0-100.0) fL MCH 27.8 (25.0-35.0) pg MCHC 32.6 (31.0-37.0) g/dL RDW 13.5 (11.5-15.5) % Plt Count 314 (150-450) k/uL MPV 7.5 Neutrophils % 74 % Lymphocytes % 19 % Monocytes % 5 % Eosinophils % 1 % Basophils % 0 % Neutrophils # 12.0 H (1.3-7.7) k/uL Lymphocytes # 3.2 (1.0-4.8) k/uL Monocytes # 0.8 (0-1.0) k/uL Eosinophils # 0.1 (0-0.7) k/uL Basophils # 0.0 (0-0.2) k/uL Sodium 135 L (137-145) mmol/L Potassium 4.3 (3.5-5.1) mmol/L Chloride 100 (98-107) mmol/L Carbon Dioxide 23 (22-30) mmol/L Anion Gap 12 mmol/L BUN 21 H (7-17) mg/dL Creatinine 1.16 H (0.52-1.04) mg/dL Est GFR (CKD-EPI)AfAm 53 (>60 ml/min/1.73 sqM) Est GFR (CKD-EPI)NonAf 46 (>60 ml/min/1.73 sqM) Glucose 98 (74-99) mg/dL Calcium 9.7 (8.4-10.2) mg/dL Total Bilirubin 0.5 (0.2-1.3) mg/dL AST 23 (14-36) U/L ALT 9 (4-34) U/L Alkaline Phosphatase 75 (38-126) U/L Total Protein 6.9 (6.3-8.2) g/dL Albumin 4.3 (3.5-5.0) g/dL Disposition <Dionicio Tuttle - Last Filed: 10/08/24 04:04> Is patient prescribed a controlled substance at d/c from ED?: No <Arvin Perez - Last Filed: 10/10/24 02:44> Clinical Impression: Headache Disposition: HOME SELF-CARE Condition: Good Instructions (If sedation given, give patient instructions): Acute Headache (ED) Referrals: Kaur Cabello MD [Primary Care Provider] - 1-2 days
[2024-10-08] MEDS: IPRATROPIUM-ALBUTEROL 3 ML NEB INHALATION STA (02:21)
[2024-10-08] MEDS: ONDANSETRON 4 MG/2 ML VIAL IVP STA (02:27)
[2024-10-08] MEDS: ACETAMINOPHEN TAB 500 MG TAB PO STA (02:27)
[2024-10-08] MEDS: SODIUM CHLORIDE 0.9% 1,000 ML IV STA (02:30)
[2024-10-08] MEDS: FAMOTIDINE 20 MG/2 ML VIAL IV STA (02:40)
[2024-10-08] MEDS: methylPREDNISolone SOD SUCCI 125 MG/2 ML VIAL IV STA (02:41)
[2024-10-08] MEDS: diphenhydrAMINE 50 MG/ML 1 ML VIAL IVP STA (02:44)
[2024-10-08 02:49] LABS: Basophils % (A) 0 %; Eosinophils # (A) 0.1 k/uL (0-0.7); Eosinophils % (A) 1 %; HCT 39.4 % (34.0-46.0); HGB 12.8 gm/dL (11.4-16.0); Lymphocytes # (A) 3.2 k/uL (1.0-4.8); Lymphocytes % (A) 19 %; MCH 27.8 pg (25.0-35.0); MCHC 32.6 g/dL (31.0-37.0); MCV 85.5 fL (80.0-100.0); Mean Platelet Volume 7.5; Monocytes # (A) 0.8 k/uL (0-1.0); Monocytes % (A) 5 %; Neutrophils % (A) 74 %; Platelet Count 314 k/uL (150-450); RBC 4.61 m/uL (3.80-5.40); RDW 13.5 % (11.5-15.5); WBC 16.3 k/uL (3.8-10.6)
[2024-10-08 03:31] LABS: ALT 9 U/L (4-34); AST 23 U/L (14-36); African American GFR (CKD) 53 (>60 ml/min/1.73 sqM); Albumin 4.3 g/dL (3.5-5.0); Alkaline Phosphatase 75 U/L (38-126); Anion Gap 12 mmol/L; Blood Urea Nitrogen 21 mg/dL (7-17); Calcium 9.7 mg/dL (8.4-10.2); Carbon Dioxide 23 mmol/L (22-30); Chloride 100 mmol/L (98-107); Glucose 98 mg/dL (74-99); Non-African American GFR(CKD) 46 (>60 ml/min/1.73 sqM); Potassium 4.3 mmol/L (3.5-5.1); Sodium 135 mmol/L (137-145); Total Bilirubin 0.5 mg/dL (0.2-1.3); Total Protein 6.9 g/dL (6.3-8.2)
--- NOTE | 2024-10-08 03:46 | CT ---
EXAM: CT Head Without Intravenous Contrast CLINICAL HISTORY: Headache TECHNIQUE: Axial computed tomography images of the head/brain without intravenous contrast. CTDI is 48.9 mGy and DLP is 1123.8 mGy-cm. This CT exam was performed using one or more of the following dose reduction techniques: automated exposure control, adjustment of the mA and/or kV according to patient size, and/or use of iterative reconstruction technique. COMPARISON: No relevant prior studies available. FINDINGS: Brain: No intracranial hemorrhage. No significant mass-effect. No evidence for heart. Minimal periventricular deep white matter hypodense changes noted. Ventricles: Unremarkable. No ventriculomegaly. Bones/joints: Unremarkable. No acute fracture. Soft tissues: Unremarkable. Sinuses: Unremarkable as visualized. No acute sinusitis. Mastoid air cells: Unremarkable as visualized. No mastoid effusion. IMPRESSION: No acute intracranial process identified.
--- NOTE | 2024-10-08 03:56 | CT ---
EXAM: CT Angiography Head With Intravenous Contrast CLINICAL HISTORY: Right head pain, worsening TECHNIQUE: Axial computed tomographic angiography images of the head with intravenous contrast. CTDI is 14.7 mGy and DLP is 298.75 mGy-cm. This CT exam was performed using one or more of the following dose reduction techniques: automated exposure control, adjustment of the mA and/or kV according to patient size, and/or use of iterative reconstruction technique. MIP reconstructed images were created and reviewed. COMPARISON: No relevant prior studies available. FINDINGS: Right internal carotid artery: Extensive atherosclerotic location of the right cavernous and supraclinoid internal carotid artery segments without. The petrous segment is patent. Intracranial segment is patent with no significant stenosis. No aneurysm. Right anterior cerebral artery: Unremarkable. No occlusion or significant stenosis. No aneurysm. Right middle cerebral artery: Unremarkable. No occlusion or significant stenosis. No aneurysm. Right posterior cerebral artery: Unremarkable. No occlusion or significant stenosis. No aneurysm. Right vertebral artery: Unremarkable as visualized. Left internal carotid artery: Circumferential prominent atherosclerotic calcification of the left cavernous and supraclinoid internal carotid artery segments with mild narrowing. No occlusion. The petrous segment is patent. No aneurysm. Left anterior cerebral artery: Unremarkable. No occlusion or significant stenosis. No aneurysm. Left middle cerebral artery: Unremarkable. No occlusion or significant stenosis. No aneurysm. Left posterior cerebral artery: Unremarkable. No occlusion or significant stenosis. No aneurysm. Left vertebral artery: Unremarkable as visualized. Basilar artery: Unremarkable. No occlusion or significant stenosis. No aneurysm. Brain: No abnormal parenchymal enhancement. Soft tissues: The right parotid gland is asymmetrically hyperdense. Please see the CT examination of the cervical region for further details. IMPRESSION: Extensive atherosclerotic calcification of both cavernous and supraclinoid internal carotid arteries. Mild narrowing of the left. Otherwise negative intracranial CTA examination. EXAM: CT Angiography Neck With Intravenous Contrast CLINICAL HISTORY: Right head pain, worsening TECHNIQUE: Routine carotid CT angiography protocol was performed with intravenous contrast. NASCET criteria using the distal ICAs for comparison were used for evaluation of stenoses. CTDI is 14.7 mGy and DLP is 298.75 mGy-cm. This CT exam was performed using one or more of the following dose reduction techniques: automated exposure control, adjustment of the mA and/or kV according to patient size, and/or use of iterative reconstruction technique. MIP reconstructed images were created and reviewed. COMPARISON: None. FINDINGS: VASCULATURE: Right common carotid artery: Unremarkable. No occlusion or significant stenosis. No dissection. Right internal carotid artery: Atherosclerotic calcification with intimal hyperplasia involving the proximal right internal carotid artery extending to the carotid bifurcation with mild, approximately 40% luminal stenosis by NASCET criteria. The mid to distal right internal carotid artery is otherwise patent. No dissection. Right external carotid artery: Unremarkable. No occlusion. Right vertebral artery: Unremarkable. No occlusion or significant stenosis. No dissection. Left common carotid artery: Unremarkable. No occlusion or significant stenosis. No dissection. Left internal carotid artery: Atherosclerotic calcification involving the proximal left internal carotid artery at the carotid bifurcation. There is only mild, approximately 20% narrowing by NASCET criteria. The mid to distal internal carotid arteries otherwise patent. No dissection. Left external carotid artery: Unremarkable. No occlusion. Left vertebral artery: Unremarkable. No occlusion or significant stenosis. No dissection. Brachiocephalic and subclavian arteries: There is a normal branching pattern of the proximal great vessels without significant ostial stenosis. Aorta: The aortic arch is patent without dissection or aneurysm. NECK: Bones/joints: Unremarkable. No acute fracture. Soft tissues: Unremarkable. Submandibular/parotid glands: There is asymmetric hyperdensity and slight enlargement of the right parotid gland. No ductal dilation, sialolith or definite surrounding inflammatory changes. Lung apices: Clear. Mediastinum: Incidental fluid filled thoracic esophagus extending from the thoracic inlet to the sera. No esophageal mucosal thickening. CAROTID STENOSIS REFERENCE USING NASCET CRITERIA: % ICA stenosis = (1 - narrowest ICA diameter/diameter of distal cervical ICA) x 100. Mild - <50% stenosis. Moderate - 50-69% stenosis. Severe - 70-94% stenosis. Near occlusion - 95-99% stenosis. Occluded - 100% stenosis. IMPRESSION: 1. Atherosclerotic calcification with intimal hyperplasia involving the proximal right internal carotid artery extending to the carotid bifurcation with mild, approximately 40% luminal stenosis by NASCET criteria. The mid to distal right internal carotid artery is otherwise patent. The right common carotid artery is patent. 2. Atherosclerotic calcification involving the proximal left internal carotid artery at the carotid bifurcation. There is only mild, approximately 20% narrowing by NASCET criteria. The mid to distal internal carotid arteries otherwise patent. The left common carotid artery is otherwise patent. 3. The vertebral arteries are patent without stenosis or occlusion. 4. There is asymmetric hyperdensity and slight enlargement of the right parotid gland. No ductal dilation, sialolith or definite surrounding inflammatory changes. Differential considerations include subtle proctitis versus a parotid gland tumor, such as a pleomorphic adenoma.
--- NOTE | 2024-10-08 04:09 | XR ---
EXAM: XR Chest, 2 Views CLINICAL HISTORY: Cough TECHNIQUE: Frontal and lateral views of the chest. COMPARISON: Right ribs with PA chest dated 10/05/2024 FINDINGS: Lungs: Unremarkable. No consolidation. The pulmonary vasculature demonstrates no significant radiographic abnormality. Pleural space: Unremarkable. No pneumothorax. No large pleural effusion. Heart: Unremarkable. No cardiomegaly. Mediastinum: Unremarkable. No significant abnormality identified. The trachea is midline. Bones/joints: Unremarkable. No acute fracture. Tubes, lines and devices: The spinal stimulator leads are stable in position. IMPRESSION: No acute cardiopulmonary process or significant alteration from the prior examination.
[2024-10-08 06:21] VITALS: BP 171/87; PULSE 77; RESP 17; TEMP 97.5
== END 2024-10-08 09:49 | disposition home or self-care (01) ==
LOC: EC 01:24
DX: R51.9 Headache, unspecified (principal); I10 Essential (primary) hypertension; I63.9 Cerebral infarction, unspecified; Z88.0 Allergy status to penicillin; Z88.1 Allergy status to other antibiotic agents; Z88.2 Allergy status to sulfonamides; Z88.5 Allergy status to narcotic agent; Z88.6 Allergy status to analgesic agent; Z88.7 Allergy status to serum and vaccine; Z91.011 Allergy to milk products; Z91.013 Allergy to seafood; Z91.018 Allergy to other foods; Z91.041 Radiographic dye allergy status; Z91.048 Other nonmedicinal substance allergy status; Z88.8 Allergy status to other drugs, medicaments and biological substances
CPT/HCPCS: 36415; 94640; 80053; 85025; 71046; 70496; 70450; 70498; 99284; 96374; 96375; 96361; J1200; J2405; J3490; Q9967; J2919

== ENCOUNTER → 2024-11-07 | Outpatient (CLI) | payer MEDICARE, OTHER ==
[2024-11-07 16:59] LABS: ALT 15 U/L (8-44); AST 24 U/L (13-35); Chol/HDL Ratio 3.88 Ratio; LDL Cholesterol,Calculated 182.6 mg/dL (0.0-131.0)
== END | disposition home or self-care (01) ==
LOC: LABWHC1 08:06
PROVIDERS: ATTEND Nurse Practitioner Adult Health
DX: E78.2 Mixed hyperlipidemia (principal)
CPT/HCPCS: 36415; 80061; 84450; 84460

== ENCOUNTER 2024-12-20 20:22 | Outpatient (CLI) | payer MEDICARE, OTHER ==
--- NOTE | 2025-01-03 00:03 | P.PCN ---
Date of Procedure: 12/20/24 Operative Findings: Polysomnography report Date of service is 12/20/2024 History This is a 74-year-old female patient with moderate persistent bronchial asthma, history of obesity and the patient is post bariatric surgery/gastric sleeve who also suffers from dementia, chronic pain, hypertension, hypothyroidism, chronic pain and depression. The patient also suffers from chronic comorbid insomnia. The patient has a very irregular sleep cycle and schedule. Screening polysomnography was ordered. Physical findings weight is 174 pounds with a BMI of 34 Technical description The patient was studied using a standard complex polysomnography protocol that included recording of the Lead II EKG, Central, occipital and frontal EEG, right and left outer canthus EOG, submental EMG, right and left anterior tibialis EMG, respiratory airflow by thermocouple and or pressure/flow transducer, respiratory efforts by abdominal and thoracic PVDF belts, oxygen saturation by cable oximetry. Position by observation synchronized the PSG. Equipment used: [employer]. Sleep architecture The total recording duration was 371.5 minutes. The total sleep time was 114.5 minutes and the patient's wake after sleep onset time was 240.5 minutes. The overall sleep efficiency was 30.8%. Latency to sleep onset was 16.5 minutes. No REM sleep was encountered and the patient sleep architecture was catheterized by 12.2% stage I, 85.6% stage II, 2.2% stage III and 0% REM sleep Respiratory analysis During this brief sleeping however encountered, the patient had a total of 6 obstructive events and all of them were obstructive hypopneas. The resulting AHI was 2.6. No significant oxygen desaturation and minimum pulse ox was 93%. Sleep continuity The patient had total of 19 arousals with an index of 10. Respiratory arousal index was 0 Limb movements There was a total of 127. Regular movement activity with an index of 66.6. No arousals related to the periodic movement activity. Cardiac summary. Average heart rate was 72 with a minimum heart rate of 65 and a maximum heart rate of 81 Assessment Chronic comorbid insomnia exacerbated by her poor sleep hygiene measures and irregular sleep schedule. No evidence of any sleep breathing disorder. No evidence of any nocturnal oxygen desaturation. Overall sleep efficiency was poor and the patient had limited number of hours of sleep. Note that this was a very limited study as the patient was unable to generate 2 hours of sleep and her total number of hours sleep was slightly under 2 hours. 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 This is attributed to her sleep hygiene measures and irregular sleep schedule and her various comorbidities which includes chronic pain and depression. Will implement cognitive behavioral therapy, sleep restriction and stimulus control in addition to improving her sleep hygiene measures. Encouraged weight loss. Treat comorbidities. Will continue to follow.
== END 2024-12-21 06:15 | disposition home or self-care (01) ==
LOC: 3 N SLEEP 20:22
PROVIDERS: ATTEND Internal Medicine Critical Care Medicine
DX: G47.00 Insomnia, unspecified (principal); E66.9 Obesity, unspecified; E03.9 Hypothyroidism, unspecified; F03.918 Unspecified dementia, unspecified severity, with other behavioral disturbance; F03.93 Unspecified dementia, unspecified severity, with mood disturbance; F32.A Depression, unspecified; I10 Essential (primary) hypertension; G89.29 Other chronic pain; G25.81 Restless legs syndrome; J45.909 Unspecified asthma, uncomplicated; Z98.84 Bariatric surgery status; Z68.34 Body mass index [BMI] 34.0-34.9, adult; Z91.011 Allergy to milk products; Z91.018 Allergy to other foods; Z88.0 Allergy status to penicillin; Z88.1 Allergy status to other antibiotic agents; Z88.2 Allergy status to sulfonamides; Z88.5 Allergy status to narcotic agent; Z88.6 Allergy status to analgesic agent; Z88.7 Allergy status to serum and vaccine; Z88.8 Allergy status to other drugs, medicaments and biological substances
CPT/HCPCS: 95810

== ENCOUNTER → 2025-01-04 | Outpatient (CLI) | payer MEDICARE, OTHER ==
[2025-01-04 18:17] LABS: HCT 39.1 % (37.2-46.3); HGB 12.5 g/dL (12.0-15.0); MCH 28.5 pg (27.0-32.0); MCV 89.3 FL (80.0-97.0); Mean Platelet Volume 9.7 FL (9.5-12.2); NRBC Per 100 WBC 0 X 10*3/uL (0.00-0.01); Platelet Count 371 X 10*3/uL (140-440); RBC 4.38 X 10*6/uL (4.10-5.20); RDW 12.7 % (11.5-14.5); WBC 12.15 X 10*3/uL (4.50-10.00)
[2025-01-04 18:25] LABS: Blood Urea Nitrogen 16.4 mg/dL (9.0-27.0); Carbon Dioxide 25.6 mmol/L (21.6-31.8); Chloride 100 mmol/L (96-109); Potassium 3.8 mmol/L (3.5-5.5); Sodium 137 mmol/L (135-145)
== END | disposition home or self-care (01) ==
LOC: LABPAT 15:47
PROVIDERS: ATTEND Internal Medicine Interventional Cardiology
DX: Z01.812 Encounter for preprocedural laboratory examination (principal); R94.39 Abnormal result of other cardiovascular function study
CPT/HCPCS: 80051; 82565; 84520; 85027

== ENCOUNTER 2025-01-06 07:26 | Day surgery (SDC) | payer MEDICARE, OTHER ==
[2025-01-04 09:40] VITALS: BMI 34.0
[2025-01-06 08:04] VITALS: TEMP 97.2
[2025-01-06] MEDS: NA PHOS,M-B/NA PHOS,DI-BA 133 ML ENEMA RECTAL STA (08:07)
[2025-01-06 08:19] LABS: Glucose,Whole Blood 110 mg/dL (70-110)
[2025-01-06] MEDS: IV FLUID CONTINUATION 1,000 ML IV ONE (08:20)
[2025-01-06] MEDS ORDERED: PROPOFOL 10 MG/ML 20 ML VIAL IV ONE (08:23)
--- NOTE | 2025-01-06 08:48 | P.PCN ---
Date of Procedure: 01/06/25 Procedure(s) Performed: Brief history: Patient is a pleasant 75-year-old white female scheduled for an elective upper endoscopy as well as colonoscopy as a part of evaluation of evaluation of epigastric and left upper quadrant abdominal pain for the last 1 year duration associate with intermittent nausea vomiting. History of gastric sleeve surgery. She is scheduled for colonoscopy as a part of screening for prior history of colon polyps. Last colonoscopy was 3 years ago and was noted to have multiple colon polyps all of which were adenoma. Procedure performed: Esophagogastroduodenoscopy with biopsy Colonoscopy with snare polypectomy Preoperative diagnosis: Abdominal pain Screening for history of colon polyps Anesthesia: MAC Procedure: After informed consent was obtained from the patient was brought into the endoscopy unit and IV sedation was administered by anesthesia under continuous monitoring. Initially upper endoscopy was done. The Olympus GF 160 video endoscope was inserted inserted into the mouth and esophagus intubated without any difficulty and was gradually advanced into the stomach and duodenum and carefully examined. The bulb and second part of the duodenum appeared normal. The scope was then withdrawn into the stomach adequately insufflated with air and upon careful examination the antrum had scattered erosions and mild erythema consistent with gastritis and biopsies were done from this area. There was evidence of gastric sleeve surgery noted. Mucosa in the gastric sleeve appeared normal. The scope was then withdrawn into the esophagus. Small hiatal hernia noted. The GE junction was located at 35 cm to the incisors. It appeared regular with no erythema erosions or ulcerations. Rest of the esophagus appeared normal. Patient tolerated the procedure well. At this time the patient continued to remain sedation. Initial digital rectal examination was normal. Olympus CF 160 video colonoscope was then inserted into the rectum and gradually advanced to the cecum without any difficulty. Careful examination was performed as the scope was gradually being withdrawn. The prep was excellent. The cecum, ascending colon, appeared normal. In the transverse colon there was a 1 cm broad-based polyp removed by snare polypectomy. In the descending colon there was another 1 cm broad-based polyp removed by snare polypectomy. Rest of the transverse colon, descending colon, sigmoid colon and rectum appeared normal. Moderate sigmoid diverticulosis. Retroflexion was performed in the rectum and small internal hemorrhoid were noted. Patient tolerated the procedure well. Impression: 1. Upper endoscopy revealed evidence of gastric sleeve surgery, small hiatal hernia, antral erosive gastritis 2. Colonoscopy revealed: 1 cm transverse colon polyp status post snare polypectomy 1 cm broad-based descending colon polyp status post polypectomy Sigmoid diverticulosis and small internal hemorrhoids Recommendations: Findings of this examination were discussed with the patient as well as her family. She was advised to follow-up with the biopsy results. If the biopsy reveals adenoma, recommended repeat colonoscopy in 3 years.
[2025-01-06 09:18] VITALS: BP 147/65; PULSE 72; RESP 16
== END 2025-01-06 09:38 | disposition home or self-care (01) ==
LOC: ORWHC2ENDO 07:26
PROVIDERS: ATTEND Internal Medicine Gastroenterology
DX: Z12.11 Encounter for screening for malignant neoplasm of colon (principal); K29.50 Unspecified chronic gastritis without bleeding; D12.4 Benign neoplasm of descending colon; K21.9 Gastro-esophageal reflux disease without esophagitis; K44.9 Diaphragmatic hernia without obstruction or gangrene; K57.30 Diverticulosis of large intestine without perforation or abscess without bleeding; K64.8 Other hemorrhoids; I63.9 Cerebral infarction, unspecified; J44.9 Chronic obstructive pulmonary disease, unspecified; I10 Essential (primary) hypertension; E78.5 Hyperlipidemia, unspecified; E07.9 Disorder of thyroid, unspecified; N28.9 Disorder of kidney and ureter, unspecified; M54.10 Radiculopathy, site unspecified; G20.A1 Parkinson's disease without dyskinesia, without mention of fluctuations; G47.33 Obstructive sleep apnea (adult) (pediatric); Z89.521 Acquired absence of right knee; Z98.84 Bariatric surgery status; Z88.8 Allergy status to other drugs, medicaments and biological substances; Z88.5 Allergy status to narcotic agent; Z88.4 Allergy status to anesthetic agent; Z88.9 Allergy status to unspecified drugs, medicaments and biological substances; Z88.1 Allergy status to other antibiotic agents; Z91.041 Radiographic dye allergy status; Z88.0 Allergy status to penicillin; Z91.011 Allergy to milk products; Z79.890 Hormone replacement therapy; Z79.82 Long term (current) use of aspirin; Z79.899 Other long term (current) drug therapy
CPT/HCPCS: 45385; 43239; J2704; 88305

== ENCOUNTER → 2025-01-12 | Day surgery (SDC) | payer MEDICARE, OTHER ==
[~2025-01-12] MED LIST: ALPRAZolam 0.25 MG TAB PO PRN; ALPRAZolam 0.5 MG TAB PO PRN; ASPIRIN 81 MG PO SCH; ATORVASTATIN 80 MG TAB PO STA; CARBIDOPA-LEVODOPA 25-100 MG 1 EACH TAB PO SCH; CLOPIDOGREL 75 MG TAB PO SCH; ERGOCALCIFEROL 1,250 MCG (50,000 IU) CAPSULE PO SCH; LEVOTHYROXINE 88 MCG TAB PO SCH; MEMANTINE 5 MG TAB PO SCH; METOPROLOL TARTRATE 50 MG TAB PO SCH; MONTELUKAST 10 MG TAB PO SCH; NITROGLYCERIN SL TABS 0.4 MG TAB SUBLINGUAL PRN; NON FORMULARY DRUG (Cholecalciferol 1,000 UNIT Tab) PO SCH; NON FORMULARY DRUG (Epinephrine (Auto Inject) 0.3 MG/0.3 ML Syringe) IM PRN; NON FORMULARY DRUG (Evolocumab [Repatha Sureclick] 140 MG/ML Each) SQ SCH; NON FORMULARY DRUG (Fluticasone/Umeclidin/Vilanter [Trelegy Ellipta 200-62.5-25] 1 EACH Bl INHALATION SCH; NON FORMULARY DRUG (Magnesium [Magnesium] 200 MG Tablet) PO SCH; NON FORMULARY DRUG (Mirabegron [Myrbetriq] 25 MG Tab.Er.24h) PO SCH; PANTOPRAZOLE 40 MG TABLET PO SCH; RX INFO: IV CONTRAST WAS GIVEN 1 EACH MISC MISCELLANE PRN; SODIUM CHLORIDE 0.9% 1,000 ML IV SCH; VALSARTAN 160 MG TAB PO SCH; allopurinoL 100 MG TAB PO SCH; amLODIPine 2.5 MG TAB PO SCH
[2025-01-12] MEDS: IV FLUID CONTINUATION 1,000 ML IV ONE (06:28)
[2025-01-12] MEDS: SODIUM CHLORIDE 0.9% 1,000 ML in EMPTY BAG 1 BAG IV SCH (06:28)
[2025-01-12] MEDS: ASPIRIN 325 MG TAB PO STA (06:30)
[2025-01-12 06:41] VITALS: TEMP 97.8
[2025-01-12] MEDS: HEPARIN SODIUM,PORCINE 10,000 UNIT in SODIUM CHLORIDE 0.9% 1,000 ML IRRIGATION PRN (07:43)
[2025-01-12] MEDS: HEPARIN SODIUM,PORCINE (1 ML) 2,500 UNIT in SODIUM CHLORIDE 0.9% 250 ML IRRIGATION PRN (07:43)
[2025-01-12] MEDS: MIDAZOLAM 2 MG/2 ML VIAL IVP ONE ×2 (07:47)
[2025-01-12] MEDS: LIDOCAINE 1% INJ 10MG/ML (20 ML MDV) SQ ONE (07:48)
[2025-01-12] MEDS: VERAPAMIL SYRINGE (5 MG/10 ML) INTRAARTER ONE (07:51)
[2025-01-12] MEDS: HEPARIN SODIUM 1,000 UN/ML (10ML VL) IVP ONE (07:54)
[2025-01-12] MEDS: NITROGLYCERIN 1000MCG/10ML SYRINGE INTRACORON ONE (08:05)
[2025-01-12] MEDS: IOPAMIDOL-370 100ML BTL INJ ONE (08:11)
--- NOTE | 2025-01-12 08:31 | P.CARDCATH ---
Date of Procedure: 01/12/25 Description of Procedure: Cardiac Catheterization: The patient is a 75-year-old female with known history of hypertension, hyperlipidemia who has been complaining of progressive symptoms of dyspnea and episodes of chest discomfort. She underwent an MPI that showed inferior wall ischemia. Recommendations were made regarding cardiac catheterization, the risks and the complications were discussed with the patient who is in full understanding and agreement. Procedure Description: Patient was brought to [employer] lab[employer] in fasting semi-sedated state after receiving Fentanyl and Benadryl achieiving moderate conscious sedated state. Using Xylocaine Anesthesia and modified Seldinger technique, a 6-Monegasque sheath was introduced in the right radial artery . Subsequently, selective coronary angiography was performed using a 5-Monegasque 3.5 bend Kevin catheter. Multiple views of the coronary artery including hemiaxial views were obtained. The left Kevin catheter was used to cross the aortic valve and LVEDP was calculated. IFR measurement: After removing the catheters a 6 M[place]gasque AL 0.75 guiding catheter was introduced into the system and after cannulating the right coronary ostium, an Omni Doppler flow wire was advanced to the mid RCA and IFR was measured at 0.98. Following that, catheter and sheath were removed. Hemostasis was obtained with deployment of vascular band . There was no immediate complication. Patient was returned to room in stable condition. Of note, the patient received a total of 5000 units of intravenous heparin as well as intra-arterial verapamil. Findings: Left main: This is a large size vessel, bifurcating into LAD and left circumflex, left main has no obstructive disease LAD: This is a large size vessel, reaching to the apex, tortuous in the mid and distal segment. The mid RCA has 30 to 40% plaque. It gives rise to a large diagonal branch that has no evidence of significant obstructive disease Left circumflex: This is a nondominant vessel giving rise to 2 obtuse marginal branch of moderate to large caliber. The left circumflex has no significant obstructive disease RCA: This is a dominant vessel large in caliber bifurcating distally to PDA and PLV. The proximal RCA has an eccentric 50 to 60% plaque, the rest of the vessel has no high-grade stenosis Left Ventriculogram: Not performed Hemodynamics: There was no gradient across the aortic valve, LVEDP was 14-16 mmHg Conclusion: 1. Mild disease in the mid LAD 2. Moderate disease in the proximal left circumflex, hemodynamically nonsignificant with IFR of 0.98 3. Right dominance 4. No significant disease in the left circumflex Recommendations: In view of the results of the IFR I have recommended to continue medical therapy with the aggressive coronary risks modifications and optimizing her regimen. The findings and the recommendations were discussed with the patient and the family and they were in full understanding and agreement. Duration of sedation is 20 minutes.
[2025-01-12 10:51] VITALS: BP 138/78; PULSE 80; RESP 14
== END | disposition home or self-care (01) ==
LOC: CATHCVL 06:06
PROVIDERS: ATTEND Internal Medicine Interventional Cardiology
DX: R94.39 Abnormal result of other cardiovascular function study (principal); I10 Essential (primary) hypertension; E11.9 Type 2 diabetes mellitus without complications; M19.90 Unspecified osteoarthritis, unspecified site; I42.8 Other cardiomyopathies; E78.2 Mixed hyperlipidemia; N28.9 Disorder of kidney and ureter, unspecified; G47.30 Sleep apnea, unspecified; Z87.891 Personal history of nicotine dependence; Z87.442 Personal history of urinary calculi; Z79.02 Long term (current) use of antithrombotics/antiplatelets; Z79.82 Long term (current) use of aspirin; Z79.899 Other long term (current) drug therapy
CPT/HCPCS: 93458; 93799; 99152; J2250; J1644 ×3; J2003; Q9967; J2305

== ENCOUNTER 2025-01-30 18:37 | Observation (INO) | payer MEDICARE, OTHER ==
[2025-01-30 22:16] LABS: Basophils # (A) 0.10 10*3/uL (0.00-0.10); Basophils % (A) 0.7 %; Eosinophils # (A) 0.60 10*3/uL (0.04-0.35); Eosinophils % (A) 4.3 %; HCT 38.9 % (37.2-46.3); HGB 13.0 g/dL (12.0-15.0); Lymphocytes # (A) 4.11 10*3/uL (0.90-5.00); Lymphocytes % (A) 29.5 %; MCH 29.4 pg (27.0-32.0); MCHC 33.4 g/dL (32.0-37.0); MCV 88.0 fL (80.0-97.0); Monocytes # (A) 0.98 10*3/uL (0.20-1.00); Monocytes % (A) 7.0 %; Neutrophils # (A) 8.08 10*3/uL (1.80-7.70); Neutrophils % (A) 58.1 %; Platelet Count 315 10*3/uL (140-440); RBC 4.42 10*6/uL (4.10-5.20); RDW 12.7 % (11.5-14.5); WBC 13.93 10*3/uL (4.50-10.00)
[2025-01-30 22:31] LABS: INR 0.9 (<1.2); Prothrombin Time 10.1 sec (10.0-12.5)
[2025-01-30 22:38] LABS: Partial Thromboplastin Time 21.0 sec (22.0-30.0)
[2025-01-30 22:45] LABS: ALT 14 U/L (4-34); AST 20 U/L (14-36); African American GFR (CKD) 75 (>60 ml/min/1.73 sqM); Albumin 4.5 g/dL (3.5-5.0); Alkaline Phosphatase 95 U/L (38-126); Amylase 60 U/L (30-110); Anion Gap 14 mmol/L; Blood Urea Nitrogen 21 mg/dL (7-17); Calcium 9.6 mg/dL (8.4-10.2); Carbon Dioxide 21 mmol/L (22-30); Chloride 104 mmol/L (98-107); Glucose 103 mg/dL (74-99); Lipase 98 U/L (23-300); Magnesium 1.8 mg/dL (1.6-2.3); Non-African American GFR(CKD) 65 (>60 ml/min/1.73 sqM); Potassium 4.1 mmol/L (3.5-5.1); Sodium 139 mmol/L (137-145); Total Protein 7.2 g/dL (6.3-8.2)
[2025-01-30 22:52] LABS: NT-Pro-B-Type Natriuretic Pept 359 pg/mL
--- NOTE | 2025-01-30 23:12 | ED ---
Chest Pain HPI - General Chief Complaint: Chest Pain Stated Complaint: Chest pain Time Seen by Provider: 01/30/25 22:55 Source: patient, RN notes reviewed, old records reviewed Mode of arrival: wheelchair Limitations: no limitations - History of Present Illness Initial Comments: This is a 75 female to ER for evaluation coming in for nausea vomiting unable to take antibiotics at home and recently diagnosed with urinary tract infection. States she has allergy to medication she was put on, unable to take antibiotic at home. Positive and persistent nausea vomiting and abdominal pain MD Complaint: other (Abdominal pain with nausea vomiting) -: days(s) Pain Location: epigastric Severity: moderate Severity scale (1-10): 4 Quality: sharp, dull Consistency: intermittent Improves With: nothing Worsens With: nothing Anginal Symptoms: nausea, vomiting Other Symptoms: other (0) Treatments Prior to Arrival: none - Related Data Home Medications Medication Instructions Recorded Confirmed Clopidogrel [Plavix] 75 mg PO DAILY 01/04/14 01/12/25 DULoxetine HCL [Cymbalta] 60 mg PO BID 01/04/14 01/12/25 Levothyroxine Sodium [Synthroid] 88 mcg PO QAM 01/04/14 01/12/25 Aspirin 81 mg PO HS 02/07/14 01/12/25 Biotin 1 dose PO DAILY 04/26/15 01/12/25 Carbidopa-Levodopa 25-100 mg 1 tab PO TID 03/26/18 01/12/25 [Sinemet 25-100 mg] Cholecalciferol [Vitamin D3 (25 5,000 unit PO DAILY 03/26/18 01/12/25 Mcg = 1000 Iu)] Metoprolol Tartrate [Lopressor] 50 mg PO TID 06/23/18 01/12/25 Acetaminophen Tab [Tylenol Tab] 1,000 mg PO Q6HR PRN 11/08/18 01/10/25 EPINEPHrine (Auto Inject) [Epipen] 0.3 mg IM ONCE PRN 11/08/18 01/10/25 Memantine [Namenda] 5 mg PO BID 11/08/18 01/12/25 Montelukast [Singulair] 10 mg PO HS 11/08/18 01/10/25 Valsartan 160 tab PO QAM 08/24/24 01/12/25 predniSONE [Deltasone] 20 mg PO DAILY PRN 09/16/24 01/12/25 Calcium Carbonate [Calcium] 1,200 mg PO 1200 01/04/25 01/12/25 Ergocalciferol (Vitamin D2) 1,250 mcg PO Q14D 01/04/25 01/10/25 [Drisdol (GEQ) 1,250 MCG (50,000 IU)] Evolocumab [Repatha Sureclick] 140 mg SQ Q14D 01/04/25 01/10/25 Fluticasone/Umeclidin/Vilanter 1 puff INHALATION QAM 01/04/25 01/10/25 [Trelegy Ellipta 200-62.5-25] Magnesium 200 mg PO 1200 01/04/25 01/12/25 Mirabegron [Myrbetriq] 25 mg PO QAM 01/04/25 01/10/25 Pantoprazole [Protonix] 40 mg PO QAM 01/04/25 01/10/25 Xopenex (Unknown Dose) 2 puff INHALATION QID 01/04/25 01/12/25 allopurinoL [Zyloprim] 100 mg PO QAM 01/04/25 01/12/25 amLODIPine BESYLATE 5 mg PO QAM 01/04/25 01/12/25 cycloSPORINE 0.05% OPHTH SOLN 1 applicator BOTH EYES Q12H 01/04/25 01/12/25 [Restasis] Allergies Allergy/AdvReac Type Severity Reaction Status Date / Time aripiprazole [From Abilify] Allergy Anaphylaxis Verified 01/06/25 07:58 baclofen Allergy Anaphylaxis Verified 01/06/25 07:58 butalbital [From Fioricet] Allergy Rash/Hives Verified 01/06/25 07:58 cefadroxil hydrate Allergy Rash/Hives Verified 01/06/25 07:58 [From Duricef] cefazolin sodium Allergy Anaphylaxis Verified 01/06/25 07:58 [From Kefzol] cephalexin monohydrate Allergy Anaphylaxis Verified 01/06/25 07:58 [From Keflex] ciprofloxacin [From Cipro] Allergy Swelling Verified 01/06/25 07:58 OF THROAT ,RASH AND HIVES ciprofloxacin HCl Allergy Rash/Hives, Verified 01/06/25 07:58 [From Cipro] SWELLING OF THROAT clindamycin HCl Allergy Unknown Verified 01/06/25 07:58 [From Cleocin] clindamycin palmitate HCl Allergy Unknown Verified 01/06/25 07:58 [From Cleocin] clindamycin phosphate Allergy Unknown Verified 01/06/25 07:58 [From Cleocin] dexamethasone [From Decadron] Allergy Anaphylaxis Verified 01/06/25 07:58 dexamethasone sod phosphate Allergy Anaphylaxis Verified 01/06/25 07:58 [From Decadron] ,RASH divalproex sodium Allergy Rash/Hives Verified 01/06/25 07:58 [From Depakote] hydroxyzine HCl [From Atarax] Allergy Unknown Verified 01/06/25 07:58 ibuprofen [From Motrin] Allergy RASH Verified 01/06/25 07:58 ,ITCHING SWELLING OF THROAT influenza virus vaccine, Allergy Anaphylaxis Verified 01/06/25 07:58 specific [Influenza Virus Vacc,Specific] Iodinated Contrast Media Allergy Anaphylaxis Verified 01/06/25 07:58 [Iodinated Contrast- Oral and IV Dye] lidocaine HCl Allergy Anaphylaxis Verified 01/06/25 07:58 [From Xylocaine] lisinopril Allergy Swelling Verified 01/06/25 07:58 meperidine HCl [From Demerol] Allergy Rash/Hives Verified 01/06/25 07:58 Milk Containing Products Allergy ABDOMINAL Verified 01/06/25 07:58 (Dairy) PAIN [Milk Containing Products] NAUSEA AND VOMITING morphine Allergy Vomiting Verified 01/06/25 07:58 Mushroom Allergy Anaphylaxis Verified 01/06/25 07:58 nitrofurantoin Allergy Nausea & Verified 01/30/25 18:47 Vomiting nortriptyline HCl Allergy Unknown Verified 01/06/25 07:58 [From Pamelor] omalizumab [From Xolair] Allergy Anaphylaxis Verified 01/06/25 07:58 Penicillins Allergy Rash/Hives Verified 01/06/25 07:58 pregabalin [From Lyrica] Allergy Rash/Hives Verified 01/06/25 07:58 procaine HCl [From Novocain] Allergy Unknown Verified 01/06/25 07:58 shellfish derived Allergy Anaphylaxis Verified 01/06/25 07:58 sulfamethoxazole Allergy Unknown Verified 01/06/25 07:58 [From Septra] tetracycline [Tetracycline] Allergy Rash/Hives Verified 01/06/25 07:58 theophylline anhydrous Allergy Unknown Verified 01/06/25 07:58 [From Joel-Dur] triamcinolone Allergy Anaphylaxis Verified 01/06/25 07:58 trimethoprim [From Septra] Allergy RASH, Verified 01/06/25 07:58 ITCHING vancomycin Allergy ITCHING Verified 01/06/25 07:58 ,HIVES wheat Allergy Rash/Hives Verified 01/06/25 07:58 yellow dye Allergy Anaphylaxis Verified 01/06/25 07:58 erythromycin base AdvReac Rash/Hives Verified 01/06/25 07:58 fentanyl [From Duragesic] AdvReac Unknown Verified 01/06/25 07:58 NSAIDS (Non-Steroidal AdvReac Unknown Verified 01/06/25 07:58 Anti-Inflamma verapamil AdvReac Rash/Hives Verified 01/06/25 07:58 PAPER TAPE Allergy Rash/BLISTE Uncoded 01/06/25 07:58 RS PERSERATIVE IN ALBUTEROL Allergy Dyspnea Uncoded 01/06/25 07:58 INHALER PU WHITE SUTURE Allergy Swelling Uncoded 01/06/25 07:58 Review of Systems ROS Statement: Those systems with pertinent positive or pertinent negative responses have been documented in the HPI. ROS Other: All systems not noted in ROS Statement are negative. EKG Findings - EKG Comments: EKG Findings:: EKG is sinus 91 IN 136 QRS 71 QTc 401 - EKG Results: EKG: interpreted by NAVEED Past Medical History Past Medical History: Asthma, Renal Disease Additional Past Medical History / Comment(s): Pt recently admitted to [facility] on 03/26/18 with UTI/sepsis, hyponatremia/SIADH, hypomagnesemia, hypokalemia and bacterial MRSA. Other HX: Frequent falls, bilateral weakness from CVAs and loss of equalibrium-also had bilateral facial droops that resolve, pt states she has had 6 CVAs total, TIAs, L leg bone cancer and entire leg has titanium rods, R knee arthroplasty-pt fell and damaged artificial joint, chronic back pain, carpal tunnel syndrome bilateral elbows/shoulders, DJD, diabetes insipidus, LAUREN with no device since weight loss, CKD stage III, [place] bilaterally, anemia. parkinsons History of Any Multi-Drug Resistant Organisms: MRSA Date of last positivie culture/infection: 03/26/18 MDRO Source:: BLOOD Past Surgical History: Appendectomy, Back Surgery, Bariatric Surgery, Cholecystectomy, Heart Catheterization, Hysterectomy, Joint Replacement, Orthope dic Surgery, Tubal Ligation Additional Past Surgical History / Comment(s): 04/02/18 PICC line for ABX, Lap band with removal, gastric sleeve, L leg titanium rods, R total knee arthroplasty, bilateral wrist carpal tunnel releases, R great toe surgery to remove a growth, lithotripsy, pain stimulator-nonfunctioning, pain clinic procedures, bilateral cataract removals. Past Anesthesia/Blood Transfusion Reactions: Previous Problems w/ Anesthesia Additional Past Anesthesia/Blood Transfusion Reaction / Comment(s): Slow to wake. Past Psychological History: Anxiety, Depression, Panic Disorder Smoking Status: Never smoker - Past Family History Father Additional Family Medical History / Comment(s): pt was 7 years old when her father was murdered/ from gsw Mother Family Medical History: CVA/TIA Daughter(s) Family Medical History: Deep Vein Thrombosis (DVT) Additional Family Medical History / Comment(s): dvt General Exam Limitations: no limitations General appearance: alert, in no apparent distress Head exam: Present: atraumatic, normocephalic, normal inspection Eye exam: Present: normal appearance, PERRL, EOMI. Absent: scleral icterus, conjunctival injection, periorbital swelling ENT exam: Present: normal exam, mucous membranes moist Neck exam: Present: normal inspection. Absent: tenderness, meningismus, lymphadenopathy Respiratory exam: Present: normal lung sounds bilaterally. Absent: respiratory distress, wheezes, rales, rhonchi, stridor Cardiovascular Exam: Present: regular rate, normal rhythm, normal heart sounds. Absent: systolic murmur, diastolic murmur, rubs, gallop, clicks GI/Abdominal exam: Present: soft, normal bowel sounds. Absent: distended, tenderness, guarding, rebound, rigid Extremities exam: Present: normal inspection, full ROM, normal capillary refill. Absent: tenderness, pedal edema, joint swelling, calf tenderness Back exam: Present: normal inspection Neurological exam: Present: alert, oriented X3, CN II-XII intact Psychiatric exam: Present: normal affect, normal mood Skin exam: Present: warm, dry, intact, normal color. Absent: rash Course Vital Signs 01/30/25 01/30/25 01/30/25 18:43 22:52 23:46 Temperature 97.8 F 98.1 F Pulse Rate 100 95 93 Respiratory 16 18 18 Rate Blood Pressure 152/84 180/88 167/99 O2 Sat by Pulse 97 98 96 Oximetry 01/31/25 01/31/25 01/31/25 00:32 00:44 00:52 Temperature 98.3 F Pulse Rate 91 112 H 111 H Respiratory 18 Rate Blood Pressure 158/75 O2 Sat by Pulse 97 Oximetry - Reevaluation(s) Reevaluation #1: 01/31/25 00:58 Medical records reviewed Reevaluation #2: 01/31/25 00:58 Patient symptoms improving Reevaluation #3: 01/31/25 00:58 Patient informed of results questions answered Reevaluation #4: Was pt. sent in by a medical professional or institution (, SMITA, CUSTOMER SUPPORT SPECIALIST, urgent care, hospital, or group home...) When possible be specific @ -no Did you speak to anyone other than the patient for history (EMS, parent, family, police, friend...)? What history was obtained from this source @ -no Did you review nursing and triage notes (agree or disagree)? Why? @ -agree Are old charts reviewed (outside hosp., previous admission, EMS record, old EKG, old radiological studies, urgent care reports/EKG's, group home records)? Report findings @ -yes Differential Diagnosis (chest pain, altered mental status, abdominal pain women, abdominal pain men, vaginal bleeding, weakness, fever, dyspnea, syncope, headache, dizziness, GI bleed, back pain, seizure, CVA, palpatations, mental health, musculoskeletal)? @ -prior EKG interpreted by me (3pts min.). @ -yes X-rays interpreted by me (1pt min.). @ -yes negative for acute disease CT interpreted by me (1pt min.). @ -no U/S interpreted by me (1pt. min.). @ -no What testing was considered but not performed or refused? (CT, X-rays, U/S, labs)? Why? @ -none What meds were considered but not given or refused? Why? @ -none Did you discuss the management of the patient with other professionals (professionals i.e. SMITA Romano, CUSTOMER SUPPORT SPECIALIST, lab, RT, psych nurse, social worker masters, family lawyer, teacher, security public safety officer, block and case maker)? Give summary @ -no Was smoking cessation discussed for >3mins.? @ -no Was critical care preformed (if so, how long)? @ -no Were there social determinants of health that impacted care today? How? (Homelessness, low income, unemployed, alcoholism, drug addiction, transportation, low edu. Level, literacy, decrease access to med. care, custodial, rehab)? @ -none Was there de-escalation of care discussed even if they declined (Discuss DNR or withdrawal of care, Hospice)? DNR status @ -no What co-morbidities impacted this encounter? (DM, HTN, Smoking, COPD, CAD, Cancer, CVA, ARF, Chemo, Hep., AIDS, mental health diagnosis, sleep apnea, morbid obesity)? @ -none Was patient admitted / discharged? Hospital course, mention meds given and route, prescriptions, significant lab abnormalities, going to OR and other pertinent info. @ - Undiagnosed new problem with uncertain prognosis? @ -no Drug Therapy requiring intensive monitoring for toxicity (Heparin, Nitro, Insulin, Cardizem)? @ -no Were any procedures done? @ -no Diagnosis/symptom? @ - Acute, or Chronic, or Acute on Chronic? @ -Acute Uncomplicated (without systemic symptoms) or Complicated (systemic symptoms)? @ -Complicated Side effects of treatment? @ -no Exacerbation, Progression, or Severe Exacerbation? @ -exacerbation Poses a threat to life or bodily function? How? (Chest pain, [place], PR, pneumonia, PE, COPD, DKA, ARF, appy, cholecystitis, CVA, Diverticulitis, Homicidal, Suicidal, threat to staff... and all critical care pts) @ -yes Reevaluation #5: Differential Chest Pain: Stable Angina, Unstable Angina, STEMI, NSTEMI Aortic Dissection, Pneumothorax, Musculoskeletal, Esophageal Spasm GERD, Cholecystitis, Pancreatitis, Zoster, this is not meant to be an all-inclusive list. Differential Abdominal Pain Women: Appendicitis, Cholecystitis, diverticulosis, ischemic bowel, pancreatitis, hepatitis, UTI, gastroenteritis, AAA, incarcerated hernia, bowel obstruction, constipation, inflammatory bowel, hepatitis, peptic ulcer disease, splenic infarction, perforated viscus, vulvitis, ovarian torsion, PID, kidney stone, placenta abruption, this is not meant to be an all-inclusive list Chest Pain MDM - MDM 75 female to ER for evaluation of chest pain abdominal pain nausea vomiting with UTI known. Patient be admitted for IV antibiotics failed outpatient UTI Disposition Clinical Impression: Atypical chest pain, Chest pain, Nausea & vomiting, UTI (urinary tract infection), Failure of outpatient treatment Disposition: ADMITTED IP TO THIS HOSP Condition: Fair Is patient prescribed a controlled substance at d/c from ED?: No Time of Disposition: 23:55
[2025-01-30] MEDS: HYDROmorphone 1 MG/ML 1 ML SYRINGE IVP STA (23:13)
[2025-01-30] MEDS: ONDANSETRON 4 MG/2 ML VIAL IVP STA (23:14)
[2025-01-30] MEDS: SODIUM CHLORIDE 0.9% 1,000 ML IV ONE (23:18)
--- NOTE | 2025-01-30 23:34 | XR ---
EXAM: XR Chest, 2 Views CLINICAL HISTORY: ITS.REASON XR Reason: Chest Pain TECHNIQUE: Frontal and lateral views of the chest. COMPARISON: 11/01/2024 FINDINGS: Lungs: No consolidation. Pleural space: No significant pleural effusion. No pneumothorax. Heart: No cardiomegaly or pulmonary vascular congestion. Bones/joints: No acute fracture. No dislocation. Osteopenia. Degenerative changes at both shoulders. Stimulator leads project over the thoracic spine. Upper abdomen: Surgical clips. IMPRESSION: No evidence of acute cardiopulmonary disease.
[2025-01-30] MEDS: diphenhydrAMINE 50 MG/ML 1 ML VIAL IVP STA (23:42)
[2025-01-30] MEDS: FAMOTIDINE 20 MG/2 ML VIAL IV STA (23:42)
[2025-01-30] MEDS: methylPREDNISolone SOD SUCCI 125 MG/2 ML VIAL IV STA (23:42)
[2025-01-31] MEDS ORDERED: ONDANSETRON 4 MG/2 ML VIAL IVP PRN (00:16)
[2025-01-31] MEDS ORDERED: NALOXONE 0.4 MG/ML 1 ML VIAL IV PRN (00:16)
[2025-01-31] MEDS ORDERED: HYDROmorphone 1 MG/ML 1 ML SYRINGE IVP PRN (00:16)
[2025-01-31] MEDS: IPRATROPIUM-ALBUTEROL 3 ML NEB INHALATION STA (00:42)
--- NOTE | 2025-01-31 00:47 | CT ---
EXAM: CT Abdomen and Pelvis With Intravenous Contrast CLINICAL HISTORY: ITS.REASON CT Reason: pain TECHNIQUE: Axial computed tomography images of the abdomen and pelvis with intravenous contrast. CTDI is 25.9 mGy and DLP is 1180.7 mGy-cm. This CT exam was performed using one or more of the following dose reduction techniques: automated exposure control, adjustment of the mA and/or kV according to patient size, and/or use of iterative reconstruction technique. COMPARISON: No relevant prior studies available. FINDINGS: Lung bases: Unremarkable. Mediastinum: Small hiatal hernia. ABDOMEN: Liver: Calcified hepatic granuloma. Small benign hepatic cyst. Gallbladder and bile ducts: Cholecystectomy. Intrahepatic and extrahepatic biliary dilatation with CBD measuring 1.5 cm. No calcified duct stone. Pancreas: Unremarkable. No mass. No ductal dilation. Spleen: Unremarkable. No splenomegaly. Adrenals: Unremarkable. No mass. Kidneys and ureters: Symmetric renal enhancement. No hydronephrosis. Large, simple right renal cyst measuring 9.5 cm; no follow-up indicated. Nonobstructing 4 mm stone within the large right renal cyst. Stomach and bowel: Gastric sleeve. No bowel obstruction. Sigmoid diverticulosis. No mucosal thickening. PELVIS: Appendix: Appendix not identified. No secondary signs of appendicitis. Bladder: Unremarkable. No mass. Reproductive: Hysterectomy. ABDOMEN and PELVIS: Intraperitoneal space: Unremarkable. No free air, significant free fluid, or fluid collection. Bones/joints: No acute fracture or dislocation. Soft tissues: Unremarkable. Vasculature: Atherosclerosis. No abdominal aortic aneurysm. Lymph nodes: Unremarkable. No enlarged lymph nodes. Other: Stimulator device left posterior body wall with leads extending into the thoracic spinal canal. IMPRESSION: Cholecystectomy. Biliary dilatation may be due to reservoir effect. If there is laboratory evidence of biliary obstruction, consider MRCP. Otherwise, no acute/inflammatory process identified in the abdomen or pelvis.
--- NOTE | 2025-01-31 00:48 | CT ---
EXAM: CT Angiography Chest With Intravenous Contrast CLINICAL HISTORY: ITS.REASON CT Reason: pain TECHNIQUE: Axial computed tomographic angiography images of the chest with intravenous contrast. CTDI is 16.4 mGy and DLP is 464.8 mGy-cm. This CT exam was performed using one or more of the following dose reduction techniques: automated exposure control, adjustment of the mA and/or kV according to patient size, and/or use of iterative reconstruction technique. MIP reconstructed images were created and reviewed. COMPARISON: No relevant prior studies available. FINDINGS: Pulmonary arteries: Adequate pulmonary artery opacification. Normal caliber main pulmonary artery. No evidence of acute pulmonary embolism. Aorta: No aortic aneurysm or dissection. Lungs: No airspace consolidation or pulmonary mass. Pleural space: No significant effusion. No pneumothorax. Heart: Coronary artery atherosclerosis. No cardiomegaly or pericardial effusion. Mediastinum: Small hiatal hernia with sleeve gastrectomy noted. Bones/joints: No acute fracture or dislocation. Soft tissues: Unremarkable. Lymph nodes: No adenopathy. Tubes, lines and devices: Stimulator leads extend into the spinal canal, tip at the T5 level. IMPRESSION: No evidence of acute pulmonary embolism.
[2025-01-31] MEDS: SODIUM CHLORIDE 0.9% 1,000 ML IV SCH (00:53)
[2025-01-31] MEDS: MEROPENEM 2 GM in SODIUM CHLORIDE 0.9% 100 ML IVPB ONE (00:55)
[2025-01-31] MEDS ORDERED: NON FORMULARY DRUG (Biotin [Biotin] 5 MG Capsule) PO SCH (09:00)
[2025-01-31] MEDS: ERGOCALCIFEROL 1,250 MCG (50,000 IU) CAPSULE PO SCH (09:06)
[2025-01-31] MEDS: PANTOPRAZOLE 40 MG TABLET PO SCH (09:07)
[2025-01-31] MEDS: DULoxetine HCL 60 MG CAPSULE.DR PO SCH (09:07)
[2025-01-31] MEDS: CLOPIDOGREL 75 MG TAB PO SCH (09:07)
[2025-01-31] MEDS: MEMANTINE 5 MG TAB PO SCH (09:07)
[2025-01-31] MEDS: amLODIPine 5 MG TAB PO SCH (09:07)
[2025-01-31] MEDS: METOPROLOL TARTRATE 50 MG TAB PO SCH (09:07)
[2025-01-31] MEDS: CHOLECALCIFEROL 125 MCG (5000 IU) TABLET PO SCH (09:07)
[2025-01-31] MEDS: CARBIDOPA-LEVODOPA 25-100 MG 1 EACH TAB PO SCH (09:07)
[2025-01-31] MEDS: VALSARTAN 160 MG TAB PO SCH (09:07)
[2025-01-31] MEDS: cycloSPORINE 0.05% OPHTH 0.4 ML DROPERETTE BOTH EYES SCH (09:13)
[2025-01-31 09:36] LABS: Bilirubin,Urine Negative (Negative); Blood,Urine Negative (Negative); Color,Urine Colorless; Glucose,Urine (UA) Negative (Negative); Ketones,Urine Negative (Negative); Leukocyte Esterase,Urine Negative (Negative); Nitrite,Urine Negative (Negative); PH, Urine 5.5 (5.0-8.0); Protein,Urine Negative (Negative); Specific Gravity,Urine 1.028 (1.001-1.035); Urobilinogen,Urine <2.0 mg/dL (<2.0)
[2025-01-31] MEDS: SYMBICORT 160-4.5 MCG INHALER INHALATION SCH (09:36)
[2025-01-31] MEDS: TIOTROPIUM 2.5 MCG INHALER INHALATION SCH (09:36)
[2025-01-31] MEDS: NON FORMULARY DRUG (Evolocumab [Repatha Sureclick] 140 MG/ML Each) SQ SCH (09:59)
[2025-01-31] MEDS: NON FORMULARY DRUG (Mirabegron [Myrbetriq] 25 MG Tab.Er.24h) PO SCH (09:59)
[2025-01-31] MEDS: CALCIUM CARBONATE 500 MG CHEWABLE PO SCH (12:14)
--- NOTE | 2025-01-31 12:47 | P.GSCN ---
History of Present Illness Consult date: 01/31/25 History of present illness: CHIEF COMPLAINT: Nausea and vomiting HISTORY OF PRESENT ILLNESS: This is a 75-year-old female who presented to the hospital with complaints of nausea and vomiting. Apparently she had recently been diagnosed with UTI and has not been able to take the antibiotic. Patient reports she has been having issues with nausea and vomiting for the past year. She had a EGD and colonoscopy within the last few weeks on January 06, 2025 which had reported erosive gastritis and colon polyps. Patient complains of pain in the right upper quadrant. She reports having normal bowel movements. She also complains of being congested with cough and phlegm production. Nursing staff reports that patient was coughing and produced phlegm this morning. She has not had any vomiting. Patient is currently in her room and has eaten most of her hamburger. Patient had CT scan abdomen pelvis that reported cholecystectomy biliary dilatation may be due to reservoir effect. LFTs and total bilirubin are normal. Other past abdominal surgical history includes appendectomy sleeve gastrectomy and hysterectomy. PAST MEDICAL HISTORY: History of CVAs, left leg bone cancer with surgery diabetes insipidus, degenerative joint disease, Parkinson's, chronic kidney disease, SIADH PAST SURGICAL HISTORY: Appendectomy, Back Surgery, sleeve gastrectomy, Cholecystectomy, Heart Catheterization, Hysterectomy, Joint Replacement, Orthopedic Surgery, Tubal Ligation MEDICATIONS: See below ALLERGIES: See below SOCIAL HISTORY: No illicit drug use. REVIEW OF SYSTEMS: CONSTITUTIONAL: Denies fever or chills. HEENT: Denies blurred vision, vision changes, or eye pain. Denies hemoptysis CARDIOVASCULAR: Denies chest pain or pressure. RESPIRATORY: No shortness of breath. GASTROINTESTINAL: See HPI for pertinent findings HEMATOLOGIC: Denies bleeding disorders. GENITOURINARY: Denies any blood in urine or increased urinary frequency. SKIN: Denies pruitis. Denies rash. PHYSICAL EXAM: VITAL SIGNS: Reviewed GENERAL: Well-developed in no acute distress. HEENT: No sclera icterus. Extraocular movements grossly intact. Moist buccal mucosa. Head is atraumatic, normocephalic. No nasal drainage. ABDOMEN: Soft. Obese. Nondistended. Tenderness palpation right upper quadrant NEUROLOGIC: Alert and oriented. Cranial nerves II through XII grossly intact. LABORATORY DATA: WBC 13.93 Hgb 13 platelets 315 Sodium 139 potassium 4.1 creatinine 0.87 LFTs and total bilirubin normal Troponins negative x 3 Urinalysis negative IMAGING: CT scan abdomen pelvis reports cholecystectomy. Biliary dilatation may be due to reservoir effect. If there is laboratory evidence for biliary obstruction consider MRCP. Chest CTA negative for PE ASSESSMENT: 1. Abdominal pain with nausea and vomiting 2. Erosive gastritis noted on recent EGD PLAN: -Continue to observe -Continue PPI -Continue regular diet -Further recommendations forthcoming per surgeon Physician [facility] Teacher note has been reviewed by physician. Signing provider agrees with the documented findings, assessment, and plan of care. Past Medical History Past Medical History: Asthma, Renal Disease Additional Past Medical History / Comment(s): Pt recently admitted to [facility] on 03/26/18 with UTI/sepsis, hyponatremia/SIADH, hypomagnesemia, hypokalemia and bacterial MRSA. Other HX: Frequent falls, bilateral weakness from CVAs and loss of equalibrium-also had bilateral facial droops that resolve, pt states she has had 6 CVAs total, TIAs, L leg bone cancer and entire leg has titanium rods, R knee arthroplasty-pt fell and damaged artificial joint, chronic back pain, carpal tunnel syndrome bilateral elbows/shoulders, DJD, diabetes in sipidus, LAUREN with no device since weight loss, CKD stage III, [place] bilaterally, anemia. parkinsons History of Any Multi-Drug Resistant Organisms: MRSA Year Discovered:: 03/26/18 MDRO Source:: BLOOD Past Surgical History: Appendectomy, Back Surgery, Bariatric Surgery, Cholecystectomy, Heart Catheterization, Hysterectomy, Joint Replacement, Orthopedic Surgery, Tubal Ligation Additional Past Surgical History / Comment(s): 04/02/18 PICC line for ABX, Lap band with removal, gastric sleeve, L leg titanium rods, R total knee arthroplasty, bilateral wrist carpal tunnel releases, R great toe surgery to remove a growth, lithotripsy, pain stimulator-nonfunctioning, pain clinic proc edures, bilateral cataract removals. Past Anesthesia/Blood Transfusion Reactions: Previous Problems w/ Anesthesia Additional Past Anesthesia/Blood Transfusion Reaction / Comm: Slow to wake. Past Psychological History: Anxiety, Depression, Panic Disorder Smoking Status: Never smoker - Past Family History Father Additional Family Medical History / Comment(s): pt was 7 years old when her father was murdered/ from gsw Mother Family Medical History: CVA/TIA Daughter(s) Family Medical History: Deep Vein Thrombosis (DVT) Additional Family Medical History / Comment(s): dvt Medications and Allergies Home Medications Medication Instructions Recorded Confirmed Type Clopidogrel [Plavix] 75 mg PO DAILY 01/04/14 01/31/25 History DULoxetine HCL [Cymbalta] 60 mg PO BID 01/04/14 01/31/25 History Levothyroxine Sodium [Synthroid] 88 mcg PO QAM 01/04/14 01/31/25 History Aspirin 81 mg PO HS 02/07/14 01/31/25 History Carbidopa-Levodopa 25-100 mg 1 tab PO TID 03/26/18 01/31/25 History [Sinemet 25-100 mg] Metoprolol Tartrate [Lopressor] 50 mg PO TID 06/23/18 01/31/25 History EPINEPHrine (Auto Inject) [Epipen] 0.3 mg IM ONCE PRN 11/08/18 01/31/25 History Montelukast [Singulair] 10 mg PO HS 11/08/18 01/31/25 History Valsartan 160 tab PO QAM 08/24/24 01/31/25 History Calcium Carbonate [Calcium] 1,200 mg PO DAILY 01/04/25 01/31/25 History Evolocumab [Repatha Sureclick] 140 mg SQ Q14D 01/04/25 01/31/25 History Fluticasone/Umeclidin/Vilanter 1 puff INHALATION RT-DAILY 01/04/25 01/31/25 History [Trelegy Ellipta 200-62.5-25] Mirabegron [Myrbetriq] 25 mg PO QAM 01/04/25 01/31/25 History Pantoprazole [Protonix] 40 mg PO QAM 01/04/25 01/31/25 History allopurinoL [Zyloprim] 100 mg PO QAM 01/04/25 01/31/25 History cycloSPORINE 0.05% OPHTH SOLN 1 applicator BOTH EYES Q12H 01/04/25 01/31/25 History [Restasis] Albuterol Sulfate [Albuterol 2 puff PO RT-QID PRN 01/31/25 01/31/25 History Sulfate Hfa] Cholecalciferol (Vitamin D3) 125 mcg PO DAILY 01/31/25 01/31/25 History [Vitamin D3 (125 MCG = 5,000 IU)] Levalbuterol Tartrate 2 puff INHALATION RT-QID 01/31/25 01/31/25 History [Levalbuterol Tartrate 45 MCG Hfa] Memantine [Namenda] 10 mg PO BID 01/31/25 01/31/25 History amLODIPine [Norvasc] 5 mg PO DAILY 01/31/25 01/31/25 History Allergies Allergy/AdvReac Type Severity Reaction Status Date / Time aripiprazole [From Abilify] Allergy Anaphylaxis Verified 01/31/25 10:36 baclofen Allergy Anaphylaxis Verified 01/31/25 10:36 butalbital [From Fioricet] Allergy Rash/Hives Verified 01/31/25 10:36 cefadroxil hydrate Allergy Rash/Hives Verified 01/31/25 10:36 [From Duricef] cefazolin sodium Allergy Anaphylaxis Verified 01/31/25 10:36 [From Kefzol] cephalexin monohydrate Allergy Anaphylaxis Verified 01/31/25 10:36 [From Keflex] ciprofloxacin [From Cipro] Allergy Swelling Verified 01/31/25 10:36 OF THROAT ,RASH AND HIVES ciprofloxacin HCl Allergy Rash/Hives, Verified 01/31/25 10:36 [From Cipro] SWELLING OF THROAT clindamycin HCl Allergy Unknown Verified 01/31/25 10:36 [From Cleocin] clindamycin palmitate HCl Allergy Unknown Verified 01/31/25 10:36 [From Cleocin] clindamycin phosphate Allergy Unknown Verified 01/31/25 10:36 [From Cleocin] dexamethasone [From Decadron] Allergy Anaphylaxis Verified 01/31/25 10:36 dexamethasone sod phosphate Allergy Anaphylaxis Verified 01/31/25 10:36 [From Decadron] ,RASH divalproex sodium Allergy Rash/Hives Verified 01/31/25 10:36 [From Depakote] fentanyl [From Duragesic] Allergy Unknown Verified 01/31/25 10:36 hydroxyzine HCl [From Atarax] Allergy Unknown Verified 01/31/25 10:36 ibuprofen [From Motrin] Allergy RASH Verified 01/31/25 10:36 ,ITCHING SWELLING OF THROAT influenza virus vaccine, Allergy Anaphylaxis Verified 01/31/25 10:36 specific [Influenza Virus Vacc,Specific] Iodinated Contrast Media Allergy Anaphylaxis Verified 01/31/25 10:36 [Iodinated Contrast- Oral and IV Dye] lidocaine HCl Allergy Anaphylaxis Verified 01/31/25 10:36 [From Xylocaine] lisinopril Allergy Swelling Verified 01/31/25 10:36 meperidine HCl [From Demerol] Allergy Rash/Hives Verified 01/31/25 10:36 Mushroom Allergy Anaphylaxis Verified 01/31/25 10:36 nortriptyline HCl Allergy Unknown Verified 01/31/25 10:36 [From Pamelor] NSAIDS (Non-Steroidal Allergy Unknown Verified 01/31/25 10:36 Anti-Inflamma omalizumab [From Xolair] Allergy Anaphylaxis Verified 01/31/25 10:36 Penicillins Allergy Rash/Hives Verified 01/31/25 10:36 pregabalin [From Lyrica] Allergy Rash/Hives Verified 01/31/25 10:36 procaine HCl [From Novocain] Allergy Unknown Verified 01/31/25 10:36 shellfish derived Allergy Anaphylaxis Verified 01/31/25 10:36 sulfamethoxazole Allergy Unknown Verified 01/31/25 10:36 [From Septra] tetracycline [Tetracycline] Allergy Rash/Hives Verified 01/31/25 10:36 theophylline anhydrous Allergy Unknown Verified 01/31/25 10:36 [From Joel-Dur] triamcinolone Allergy Anaphylaxis Verified 01/31/25 10:36 trimethoprim [From Septra] Allergy RASH, Verified 01/31/25 10:36 ITCHING vancomycin Allergy ITCHING Verified 01/31/25 10:36 ,HIVES verapamil Allergy Rash/Hives Verified 01/31/25 10:36 wheat Allergy Rash/Hives Verified 01/31/25 10:36 yellow dye Allergy Anaphylaxis Verified 01/31/25 10:36 erythromycin base AdvReac Rash/Hives Verified 01/31/25 10:36 Milk Containing Products AdvReac ABDOMINAL Verified 01/31/25 10:36 (Dairy) PAIN [Milk Containing Products] NAUSEA AND VOMITING morphine AdvReac Vomiting Verified 01/31/25 10:36 nitrofurantoin AdvReac Nausea & Verified 01/31/25 10:36 Vomiting PAPER TAPE Allergy Rash/BLISTE Uncoded 01/31/25 10:36 RS PERSERATIVE IN ALBUTEROL Allergy Dyspnea Uncoded 01/31/25 10:36 INHALER PU WHITE SUTURE Allergy Swelling Uncoded 01/31/25 10:36 Surgical - Exam Vital Signs Temp Pulse Resp BP Pulse Ox 97.8 F 100 16 152/84 97 01/30/25 18:43 01/30/25 18:43 01/30/25 18:43 01/30/25 18:43 01/30/25 18:43 Results - Labs 01/30/25 22:01 01/30/25 22:01 Abnormal Lab Results - Last 24 Hours (Table) 01/30/25 01/30/25 01/30/25 Range/Units 22:01 22:01 22:01 WBC 13.93 H (4.50-10.00) 10*3/uL Immature Gran # 0.06 H (0.00-0.04) 10*3/uL Neutrophils # 8.08 H (1.80-7.70) 10*3/uL Eosinophils # 0.60 H (0.04-0.35) 10*3/uL APTT 21.0 L (22.0-30.0) sec D-Dimer (<0.60) mg/L FEU Carbon Dioxide 21 L (22-30) mmol/L BUN 21 H (7-17) mg/dL Glucose 103 H (74-99) mg/dL 01/30/25 Range/Units 22:01 WBC (4.50-10.00) 10*3/uL Immature Gran # (0.00-0.04) 10*3/uL Neutrophils # (1.80-7.70) 10*3/uL Eosinophils # (0.04-0.35) 10*3/uL APTT (22.0-30.0) sec D-Dimer 0.98 H (<0.60) mg/L FEU Carbon Dioxide (22-30) mmol/L BUN (7-17) mg/dL Glucose (74-99) mg/dL Diabetes panel 01/30/25 Range/Units 22:01 Sodium 139 (137-145) mmol/L Potassium 4.1 (3.5-5.1) mmol/L Chloride 104 (98-107) mmol/L Carbon Dioxide 21 L (22-30) mmol/L BUN 21 H (7-17) mg/dL Creatinine 0.87 (0.52-1.04) mg/dL Glucose 103 H (74-99) mg/dL Calcium 9.6 (8.4-10.2) mg/dL AST 20 (14-36) U/L ALT 14 (4-34) U/L Alkaline Phosphatase 95 (38-126) U/L Total Protein 7.2 (6.3-8.2) g/dL Albumin 4.5 (3.5-5.0) g/dL Calcium panel 01/30/25 Range/Units 22:01 Calcium 9.6 (8.4-10.2) mg/dL Albumin 4.5 (3.5-5.0) g/dL Pituitary panel 01/30/25 Range/Units 22:01 Sodium 139 (137-145) mmol/L Potassium 4.1 (3.5-5.1) mmol/L Chloride 104 (98-107) mmol/L Carbon Dioxide 21 L (22-30) mmol/L BUN 21 H (7-17) mg/dL Creatinine 0.87 (0.52-1.04) mg/dL Glucose 103 H (74-99) mg/dL Calcium 9.6 (8.4-10.2) mg/dL Adrenal panel 01/30/25 Range/Units 22:01 Sodium 139 (137-145) mmol/L Potassium 4.1 (3.5-5.1) mmol/L Chloride 104 (98-107) mmol/L Carbon Dioxide 21 L (22-30) mmol/L BUN 21 H (7-17) mg/dL Creatinine 0.87 (0.52-1.04) mg/dL Glucose 103 H (74-99) mg/dL Calcium 9.6 (8.4-10.2) mg/dL Total Bilirubin 0.4 (0.2-1.3) mg/dL AST 20 (14-36) U/L ALT 14 (4-34) U/L Alkaline Phosphatase 95 (38-126) U/L Total Protein 7.2 (6.3-8.2) g/dL Albumin 4.5 (3.5-5.0) g/dL
--- NOTE | 2025-01-31 13:14 | P.HPIM ---
History of Present Illness Chief Complaint: Abdominal pain, cough, UTI History of present illness; 75-year-old female with significant past medical history of asthma recurrent UTIs, and many allergies presents for complaints of abdominal pain nausea vomiting as well as cough not responding to albuterol. Patient reports that she received antibiotics from an urgent care because she had a UTI and since taking the antibiotics she has developed wheals and symptoms developed into nausea and vomiting and abdominal pain. Patient says that she might have a kidney stone because she has severe abdominal tenderness and distention and pain extending to the flank. She states that she has been feeling cold and clammy. She reports nausea and vomiting but she is still having bowel movements, last was yesterday. Had a colonoscopy and endoscopy in the last month, both were negative per report. Denies hematuria, polyuria, dysuria, hemachezia. In the ER she recieved a CT abdomen and pelvis revealed evidence of 4mm kidney stone and a 9 cm renal cyst on the right side. EKG was also ordered which did not reveal acute pathology. Labs in the ER: WBC 13.93 H GB 13 point Plt 315 NA 139 K4.1 BUN 21 CR 0.87 GLU 103 TROP <0.012 BNP 359 Amylase 60 Lipase 98 Patient admitted for evaluation of abdominal pain with consults to urology for evaluation of renal cyst REVIEW OF SYSTEMS: As stated above in HPI. The rest of the 14-point review of systems is negative. PHYSICAL EXAMINATION: GENERAL: The patient is alert and oriented x3, in acute distress, diaphoretic. HEENT: Pupils are round and equally reacting to light. EOMI. No scleral icterus. No conjunctival pallor. Normocephalic, atraumatic. CARDIOVASCULAR: S1 and S2 present. No murmurs, rubs, or gallops. PULMONARY: Wheeses bilaterally ABDOMEN: Abdominal distension, diffuse tenderness + CVA tenderness right side. MUSCULOSKELETAL: No joint swelling or deformity. EXTREMITIES: No cyanosis, clubbing, or pedal edema. NEUROLOGICAL: Gross neurological examination did not reveal any focal deficits. SKIN: No rashes. Assessment and Plan #Right side Renal Cyst: discovered on CT AP 9cm #Kidney Stone (4mm) #Nausea and Vommiting #Leukocytosis secondary to UTI, kidney stone, or reactive #Abdominal Pain secondary to above -CT AP reveals cyst was compressing organs and likely neurovasculature, -Kidney stone seen on CT AP -Consult Urology, appreciate recommendations - Zofran Q6 PRN -Continue NS 75/hr -One time dose of IV meropenem given in the ER, pending UA -One time dose IV morphine, continue multimodal pain management Chronic Conditions: #Asthma -Duonebs -PO Prednisone #Parkinsons Disease -Continue Home Meds #HTN #CAD -Continue home meds #Chronic pain -Multimodal pain management DVT ppx: SCDs GI ppx: Protonix CODE STATUS: Full Dispo: Pending surgical evaluation Past Medical History Past Medical History: Asthma, Renal Disease Additional Past Medical History / Comment(s): Pt recently admitted to [facility] on 03/26/18 with UTI/sepsis, hyponatremia/SIADH, hypomagnesemia, hypokalemia and bacterial MRSA. Other HX: Frequent falls, bilateral weakness from CVAs and loss of equalibrium-also had bilateral facial droops that resolve, pt states she has had 6 CVAs total, TIAs, L leg bone cancer and entire leg has titanium rods, R knee arthroplasty-pt fell and damaged artificial joint, chronic back pain, carpal tunnel syndrome bilateral elbows/shoulders, DJD, diabetes insipidus, LAUREN with no device since weight loss, CKD stage III, [place] bilaterally, anemia. parkinsons History of Any Multi-Drug Resistant Organisms: MRSA Date of last positivie culture/infection: 03/26/18 MDRO Source:: BLOOD Past Surgical History: Appendectomy, Back Surgery, Bariatric Surgery, Cholecystectomy, Heart Catheterization, Hysterectomy, Joint Replacement, Orthopedic Surgery, Tubal Ligation Additional Past Surgical History / Comment(s): 04/02/18 PICC line for ABX, Lap band with removal, gastric sleeve, L leg titanium rods, R total knee arthroplasty, bilateral wrist carpal tunnel releases, R great toe surgery to remove a growth, lithotripsy, pain stimulator-nonfunctioning, pain clinic procedures, bilateral cataract removals. Past Anesthesia/Blood Transfusion Reactions: Previous Problems w/ Anesthesia Additional Past Anesthesia/Blood Transfusion Reaction / Comment(s): Slow to wake. Past Psychological History: Anxiety, Depression, Panic Disorder Smoking Status: Never smoker - Past Family History Father Additional Family Medical History / Comment(s): pt was 7 years old when her father was murdered/ from gsw Mother Family Medical History: CVA/TIA Daughter(s) Family Medical History: Deep Vein Thrombosis (DVT) Additional Family Medical History / Comment(s): dvt Medications and Allergies Home Medications Medication Instructions Recorded Confirmed Type Clopidogrel [Plavix] 75 mg PO DAILY 01/04/14 01/31/25 History DULoxetine HCL [Cymbalta] 60 mg PO BID 01/04/14 01/31/25 History Levothyroxine Sodium [Synthroid] 88 mcg PO QAM 01/04/14 01/31/25 History Aspirin 81 mg PO HS 02/07/14 01/31/25 History Carbidopa-Levodopa 25-100 mg 1 tab PO TID 03/26/18 01/31/25 History [Sinemet 25-100 mg] Metoprolol Tartrate [Lopressor] 50 mg PO TID 06/23/18 01/31/25 History EPINEPHrine (Auto Inject) [Epipen] 0.3 mg IM ONCE PRN 11/08/18 01/31/25 History Montelukast [Singulair] 10 mg PO 11/08/18 01/31/25 History Valsartan 160 tab PO QAM 08/24/24 01/31/25 History Calcium Carbonate [Calcium] 1,200 mg PO DAILY 01/04/25 01/31/25 History Evolocumab [Repatha Sureclick] 140 mg SQ Q14D 01/04/25 01/31/25 History Fluticasone/Umeclidin/Vilanter 1 puff INHALATION RT-DAILY 01/04/25 01/31/25 History [Trelegy Ellipta 200-62.5-25] Mirabegron [Myrbetriq] 25 mg PO QAM 01/04/25 01/31/25 History Pantoprazole [Protonix] 40 mg PO QAM 01/04/25 01/31/25 History allopurinoL [Zyloprim] 100 mg PO QAM 01/04/25 01/31/25 History cycloSPORINE 0.05% OPHTH SOLN 1 applicator BOTH EYES Q12H 01/04/25 01/31/25 History [Restasis] Albuterol Sulfate [Albuterol 2 puff PO RT-QID PRN 01/31/25 01/31/25 History Sulfate Hfa] Cholecalciferol (Vitamin D3) 125 mcg PO DAILY 01/31/25 01/31/25 History [Vitamin D3 (125 MCG = 5,000 IU)] Levalbuterol Tartrate 2 puff INHALATION RT-QID 01/31/25 01/31/25 History [Levalbuterol Tartrate 45 MCG Hfa] Memantine [Namenda] 10 mg PO BID 01/31/25 01/31/25 History amLODIPine [Norvasc] 5 mg PO DAILY 01/31/25 01/31/25 History Allergies Allergy/AdvReac Type Severity Reaction Status Date / Time aripiprazole [From Abilify] Allergy Anaphylaxis Verified 01/31/25 10:36 baclofen Allergy Anaphylaxis Verified 01/31/25 10:36 butalbital [From Fioricet] Allergy Rash/Hives Verified 01/31/25 10:36 cefadroxil hydrate Allergy Rash/Hives Verified 01/31/25 10:36 [From Duricef] cefazolin sodium Allergy Anaphylaxis Verified 01/31/25 10:36 [From Kefzol] cephalexin monohydrate Allergy Anaphylaxis Verified 01/31/25 10:36 [From Keflex] ciprofloxacin [From Cipro] Allergy Swelling Verified 01/31/25 10:36 OF THROAT ,RASH AND HIVES ciprofloxacin HCl Allergy Rash/Hives, Verified 01/31/25 10:36 [From Cipro] SWELLING OF THROAT clindamycin HCl Allergy Unknown Verified 01/31/25 10:36 [From Cleocin] clindamycin palmitate HCl Allergy Unknown Verified 01/31/25 10:36 [From Cleocin] clindamycin phosphate Allergy Unknown Verified 01/31/25 10:36 [From Cleocin] dexamethasone [From Decadron] Allergy Anaphylaxis Verified 01/31/25 10:36 dexamethasone sod phosphate Allergy Anaphylaxis Verified 01/31/25 10:36 [From Decadron] ,RASH divalproex sodium Allergy Rash/Hives Verified 01/31/25 10:36 [From Depakote] fentanyl [From Duragesic] Allergy Unknown Verified 01/31/25 10:36 hydroxyzine HCl [From Atarax] Allergy Unknown Verified 01/31/25 10:36 ibuprofen [From Motrin] Allergy RASH Verified 01/31/25 10:36 ,ITCHING SWELLING OF THROAT influenza virus vaccine, Allergy Anaphylaxis Verified 01/31/25 10:36 specific [Influenza Virus Vacc,Specific] Iodinated Contrast Media Allergy Anaphylaxis Verified 01/31/25 10:36 [Iodinated Contrast- Oral and IV Dye] lidocaine HCl Allergy Anaphylaxis Verified 01/31/25 10:36 [From Xylocaine] lisinopril Allergy Swelling Verified 01/31/25 10:36 meperidine HCl [From Demerol] Allergy Rash/Hives Verified 01/31/25 10:36 Mushroom Allergy Anaphylaxis Verified 01/31/25 10:36 nortriptyline HCl Allergy Unknown Verified 01/31/25 10:36 [From Pamelor] NSAIDS (Non-Steroidal Allergy Unknown Verified 01/31/25 10:36 Anti-Inflamma omalizumab [From Xolair] Allergy Anaphylaxis Verified 01/31/25 10:36 Penicillins Allergy Rash/Hives Verified 01/31/25 10:36 pregabalin [From Lyrica] Allergy Rash/Hives Verified 01/31/25 10:36 procaine HCl [From Novocain] Allergy Unknown Verified 01/31/25 10:36 shellfish derived Allergy Anaphylaxis Verified 01/31/25 10:36 sulfamethoxazole Allergy Unknown Verified 01/31/25 10:36 [From Septra] tetracycline [Tetracycline] Allergy Rash/Hives Verified 01/31/25 10:36 theophylline anhydrous Allergy Unknown Verified 01/31/25 10:36 [From Joel-Dur] triamcinolone Allergy Anaphylaxis Verified 01/31/25 10:36 trimethoprim [From Septra] Allergy RASH, Verified 01/31/25 10:36 ITCHING vancomycin Allergy ITCHING Verified 01/31/25 10:36 ,HIVES verapamil Allergy Rash/Hives Verified 01/31/25 10:36 wheat Allergy Rash/Hives Verified 01/31/25 10:36 yellow dye Allergy Anaphylaxis Verified 01/31/25 10:36 erythromycin base AdvReac Rash/Hives Verified 01/31/25 10:36 Milk Containing Products AdvReac ABDOMINAL Verified 01/31/25 10:36 (Dairy) PAIN [Milk Containing Products] NAUSEA AND VOMITING morphine AdvReac Vomiting Verified 01/31/25 10:36 nitrofurantoin AdvReac Nausea & Verified 01/31/25 10:36 Vomiting PAPER TAPE Allergy Rash/BLISTE Uncoded 01/31/25 10:36 RS PERSERATIVE IN ALBUTEROL Allergy Dyspnea Uncoded 01/31/25 10:36 INHALER PU WHITE SUTURE Allergy Swelling Uncoded 01/31/25 10:36 Physical Exam Vitals: Vital Signs Temp Pulse Resp BP Pulse Ox 01/31/25 07:05 82 18 118/57 96 01/31/25 05:00 93 18 101/60 95 01/31/25 00:52 111 H 01/31/25 00:44 112 H 01/31/25 00:32 98.3 F 91 18 158/75 97 01/30/25 23:46 93 18 167/99 96 01/30/25 22:52 98.1 F 95 18 180/88 98 01/30/25 18:43 97.8 F 100 16 152/84 97 Intake and Output 01/30/25 01/31/25 01/31/25 22:59 06:59 14:59 Other: Weight 82.1 kg Results CBC & Chem 7: 01/30/25 22:01 01/30/25 22:01 Labs: Abnormal Lab Results - Last 24 Hours (Table) 01/30/25 01/30/25 01/30/25 Range/Units 22:01 22:01 22:01 WBC 13.93 H (4.50-10.00) 10*3/uL Immature Gran # 0.06 H (0.00-0.04) 10*3/uL Neutrophils # 8.08 H (1.80-7.70) 10*3/uL Eosinophils # 0.60 H (0.04-0.35) 10*3/uL APTT 21.0 L (22.0-30.0) sec D-Dimer (<0.60) mg/L FEU Carbon Dioxide 21 L (22-30) mmol/L BUN 21 H (7-17) mg/dL Glucose 103 H (74-99) mg/dL 01/30/25 Range/Units 22:01 WBC (4.50-10.00) 10*3/uL Immature Gran # (0.00-0.04) 10*3/uL Neutrophils # (1.80-7.70) 10*3/uL Eosinophils # (0.04-0.35) 10*3/uL APTT (22.0-30.0) sec D-Dimer 0.98 H (<0.60) mg/L FEU Carbon Dioxide (22-30) mmol/L BUN (7-17) mg/dL Glucose (74-99) mg/dL
[2025-01-31] MEDS: ACETAMINOPHEN TAB 500 MG TAB PO PRN (16:10)
--- NOTE | 2025-01-31 16:37 | P.GSCN ---
History of Present Illness Consult date: 01/31/25 Reason for Consult: Renal cyst History of present illness: This is a 75-year-old female with incidental finding of a renal cyst. She indicated she recently was diagnosed with a UTI and was started on p.o. antibiotics, she is unsure of the name of the medication. She had poor tolerance to the medication and was subsequently advised to go to the ER for IV antibiotics. She underwent a CT abdomen and pelvis for abdominal pain and abdominal distention, incidentally a 9.5 cm right sided simple renal cyst was seen. Cyst has been present for at least since 2019 based on review of imaging, at that time he measured 5.8 cm., Throughout images it is maintained simple cyst consistency. She denies any gross hematuria or dysuria. She does complain of right upper quadrant abdominal pain with radiation to the left upper quadrant and right flank. Also was having shortness of breath and notices abdominal distention. Review of Systems - Constitutional Denies fever, Denies weight loss - EENT Ears, nose, mouth and throat: Denies dysphagia - Cardiovascular Denies chest pain, Denies shortness of breath - Gastrointestinal Reports abdominal pain, Denies nausea, Denies vomiting - Integumentary Denies rash, Denies unusual bruising Past Medical History Past Medical History: Asthma, Renal Disease Additional Past Medical History / Comment(s): Pt recently admitted to [facility] on 03/26/18 with UTI/sepsis, hyponatremia/SIADH, hypomagnesemia, hypokalemia and bacterial MRSA. Other HX: Frequent falls, bilateral weakness from CVAs and loss of equalibrium-also had bilateral facial droops that resolve, pt states she has had 6 CVAs total, TIAs, L leg bone cancer and entire leg has titanium rods, R knee arthroplasty-pt fell and damaged artificial joint, chronic back pain, carpal tunnel syndrome bilateral elbows/shoulders, DJD, diabetes insipidus, LAUREN with no device since weight loss, CKD stage III, HOONAH bilaterally, anemia. parkinsons History of Any Multi-Drug Resistant Organisms: MRSA Year Discovered:: 03/26/18 MDRO Source:: BLOOD Past Surgical History: Appendectomy, Back Surgery, Bariatric Surgery, Cholec ystectomy, Heart Catheterization, Hysterectomy, Joint Replacement, Orthopedic Surgery, Tubal Ligation Additional Past Surgical History / Comment(s): 04/02/18 PICC line for ABX, Lap band with removal, gastric sleeve, L leg titanium rods, R total knee arthroplasty, bilateral wrist carpal tunnel releases, R great toe surgery to remove a growth, lithotripsy, pain stimulator-nonfunctioning, pain clinic procedures, bilateral cataract removals. Past Anesthesia/Blood Transfusion Reactions: Previous Problems w/ Anesthesia Additional Past Anesthesia/Blood Transfusion Reaction / Comm: Slow to wake. Past Psychological History: Anxiety, Depression, Panic Disorder Smoking Status: Never smoker - Past Family History Father Additional Family Medical History / Comment(s): pt was 7 years old when her father was murdered/ from [facility] Mother Family Medical History: CVA/TIA Daughter(s) Family Medical History: Deep Vein Thrombosis (DVT) Additional Family Medical History / Comment(s): dvt Medications and Allergies Home Medications Medication Instructions Recorded Confirmed Type Clopidogrel [Plavix] 75 mg PO DAILY 01/04/14 01/31/25 History DULoxetine HCL [Cymbalta] 60 mg PO BID 01/04/14 01/31/25 History Levothyroxine Sodium [Synthroid] 88 mcg PO QAM 01/04/14 01/31/25 History Aspirin 81 mg PO HS 02/07/14 01/31/25 History Carbidopa-Levodopa 25-100 mg 1 tab PO TID 03/26/18 01/31/25 History [Sinemet 25-100 mg] Metoprolol Tartrate [Lopressor] 50 mg PO TID 06/23/18 01/31/25 History EPINEPHrine (Auto Inject) [Epipen] 0.3 mg IM ONCE PRN 11/08/18 01/31/25 History Montelukast [Singulair] 10 mg PO HS 11/08/18 01/31/25 History Valsartan 160 tab PO QAM 08/24/24 01/31/25 History Calcium Carbonate [Calcium] 1,200 mg PO DAILY 01/04/25 01/31/25 History Evolocumab [Repatha Sureclick] 140 mg SQ Q14D 01/04/25 01/31/25 History Fluticasone/Umeclidin/Vilanter 1 puff INHALATION RT-DAILY 01/04/25 01/31/25 History [Trelegy Ellipta 200-62.5-25] Mirabegron [Myrbetriq] 25 mg PO QAM 01/04/25 01/31/25 History Pantoprazole [Protonix] 40 mg PO QAM 01/04/25 01/31/25 History allopurinoL [Zyloprim] 100 mg PO QAM 01/04/25 01/31/25 History cycloSPORINE 0.05% OPHTH SOLN 1 applicator BOTH EYES Q12H 01/04/25 01/31/25 History [Restasis] Albuterol Sulfate [Albuterol 2 puff PO RT-QID PRN 01/31/25 01/31/25 History Sulfate Hfa] Cholecalciferol (Vitamin D3) 125 mcg PO DAILY 01/31/25 01/31/25 History [Vitamin D3 (125 MCG = 5,000 IU)] Levalbuterol Tartrate 2 puff INHALATION RT-QID 01/31/25 01/31/25 History [Levalbuterol Tartrate 45 MCG Hfa] Memantine [Namenda] 10 mg PO BID 01/31/25 01/31/25 History amLODIPine [Norvasc] 5 mg PO DAILY 01/31/25 01/31/25 History Allergies Allergy/AdvReac Type Severity Reaction Status Date / Time aripiprazole [From Abilify] Allergy Anaphylaxis Verified 01/31/25 10:36 baclofen Allergy Anaphylaxis Verified 01/31/25 10:36 butalbital [From Fioricet] Allergy Rash/Hives Verified 01/31/25 10:36 cefadroxil hydrate Allergy Rash/Hives Verified 01/31/25 10:36 [From Duricef] cefazolin sodium Allergy Anaphylaxis Verified 01/31/25 10:36 [From Kefzol] cephalexin monohydrate Allergy Anaphylaxis Verified 01/31/25 10:36 [From Keflex] ciprofloxacin [From Cipro] Allergy Swelling Verified 01/31/25 10:36 OF THROAT ,RASH AND HIVES ciprofloxacin HCl Allergy Rash/Hives, Verified 01/31/25 10:36 [From Cipro] SWELLING OF THROAT clindamycin HCl Allergy Unknown Verified 01/31/25 10:36 [From Cleocin] clindamycin palmitate HCl Allergy Unknown Verified 01/31/25 10:36 [From Cleocin] clindamycin phosphate Allergy Unknown Verified 01/31/25 10:36 [From Cleocin] dexamethasone [From Decadron] Allergy Anaphylaxis Verified 01/31/25 10:36 dexamethasone sod phosphate Allergy Anaphylaxis Verified 01/31/25 10:36 [From Decadron] ,RASH divalproex sodium Allergy Rash/Hives Verified 01/31/25 10:36 [From Depakote] fentanyl [From Duragesic] Allergy Unknown Verified 01/31/25 10:36 hydroxyzine HCl [From Atarax] Allergy Unknown Verified 01/31/25 10:36 ibuprofen [From Motrin] Allergy RASH Verified 01/31/25 10:36 ,ITCHING SWELLING OF THROAT influenza virus vaccine, Allergy Anaphylaxis Verified 01/31/25 10:36 specific [Influenza Virus Vacc,Specific] Iodinated Contrast Media Allergy Anaphylaxis Verified 01/31/25 10:36 [Iodinated Contrast- Oral and IV Dye] lidocaine HCl Allergy Anaphylaxis Verified 01/31/25 10:36 [From Xylocaine] lisinopril Allergy Swelling Verified 01/31/25 10:36 meperidine HCl [From Demerol] Allergy Rash/Hives Verified 01/31/25 10:36 Mushroom Allergy Anaphylaxis Verified 01/31/25 10:36 nortriptyline HCl Allergy Unknown Verified 01/31/25 10:36 [From Pamelor] NSAIDS (Non-Steroidal Allergy Unknown Verified 01/31/25 10:36 Anti-Inflamma omalizumab [From Xolair] Allergy Anaphylaxis Verified 01/31/25 10:36 Penicillins Allergy Rash/Hives Verified 01/31/25 10:36 pregabalin [From Lyrica] Allergy Rash/Hives Verified 01/31/25 10:36 procaine HCl [From Novocain] Allergy Unknown Verified 01/31/25 10:36 shellfish derived Allergy Anaphylaxis Verified 01/31/25 10:36 sulfamethoxazole Allergy Unknown Verified 01/31/25 10:36 [From Septra] tetracycline [Tetracycline] Allergy Rash/Hives Verified 01/31/25 10:36 theophylline anhydrous Allergy Unknown Verified 01/31/25 10:36 [From Joel-Dur] triamcinolone Allergy Anaphylaxis Verified 01/31/25 10:36 trimethoprim [From Septra] Allergy RASH, Verified 01/31/25 10:36 ITCHING vancomycin Allergy ITCHING Verified 01/31/25 10:36 ,HIVES verapamil Allergy Rash/Hives Verified 01/31/25 10:36 wheat Allergy Rash/Hives Verified 01/31/25 10:36 yellow dye Allergy Anaphylaxis Verified 01/31/25 10:36 erythromycin base AdvReac Rash/Hives Verified 01/31/25 10:36 Milk Containing Products AdvReac ABDOMINAL Verified 01/31/25 10:36 (Dairy) PAIN [Milk Containing Products] NAUSEA AND VOMITING morphine AdvReac Vomiting Verified 01/31/25 10:36 nitrofurantoin AdvReac Nausea & Verified 01/31/25 10:36 Vomiting PAPER TAPE Allergy Rash/BLISTE Uncoded 01/31/25 10:36 RS PERSERATIVE IN ALBUTEROL Allergy Dyspnea Uncoded 01/31/25 10:36 INHALER PU WHITE SUTURE Allergy Swelling Uncoded 01/31/25 10:36 Surgical - Exam Vital Signs Temp Pulse Resp BP Pulse Ox 97.8 F 100 16 152/84 97 01/30/25 18:43 01/30/25 18:43 01/30/25 18:43 01/30/25 18:43 01/30/25 18:43 - General no distress, no pain - Eyes normal ocular movement, no pale - ENT normal nares, normal mucosa - Respiratory normal expansion, normal respiratory effort - Abdomen Abdomen: soft, tender (Upper quadrant), distended (Mild) - Psychiatric oriented to time, oriented to person, oriented to place Results - Labs 01/30/25 22:01 01/30/25 22:01 Abnormal Lab Results - Last 24 Hours (Table) 01/30/25 01/30/25 01/30/25 Range/Units 22:01 22:01 22:01 WBC 13.93 H (4.50-10.00) 10*3/uL Immature Gran # 0.06 H (0.00-0.04) 10*3/uL Neutrophils # 8.08 H (1.80-7.70) 10*3/uL Eosinophils # 0.60 H (0.04-0.35) 10*3/uL APTT 21.0 L (22.0-30.0) sec D-Dimer (<0.60) mg/L FEU Carbon Dioxide 21 L (22-30) mmol/L BUN 21 H (7-17) mg/dL Glucose 103 H (74-99) mg/dL 01/30/25 Range/Units 22:01 WBC (4.50-10.00) 10*3/uL Immature Gran # (0.00-0.04) 10*3/uL Neutrophils # (1.80-7.70) 10*3/uL Eosinophils # (0.04-0.35) 10*3/uL APTT (22.0-30.0) sec D-Dimer 0.98 H (<0.60) mg/L FEU Carbon Dioxide (22-30) mmol/L BUN (7-17) mg/dL Glucose (74-99) mg/dL Diabetes panel 01/30/25 Range/Units 22:01 Sodium 139 (137-145) mmol/L Potassium 4.1 (3.5-5.1) mmol/L Chloride 104 (98-107) mmol/L Carbon Dioxide 21 L (22-30) mmol/L BUN 21 H (7-17) mg/dL Creatinine 0.87 (0.52-1.04) mg/dL Glucose 103 H (74-99) mg/dL Calcium 9.6 (8.4-10.2) mg/dL AST 20 (14-36) U/L ALT 14 (4-34) U/L Alkaline Phosphatase 95 (38-126) U/L Total Protein 7.2 (6.3-8.2) g/dL Albumin 4.5 (3.5-5.0) g/dL Calcium panel 01/30/25 Range/Units 22:01 Calcium 9.6 (8.4-10.2) mg/dL Albumin 4.5 (3.5-5.0) g/dL Pituitary panel 01/30/25 Range/Units 22:01 Sodium 139 (137-145) mmol/L Potassium 4.1 (3.5-5.1) mmol/L Chloride 104 (98-107) mmol/L Carbon Dioxide 21 L (22-30) mmol/L BUN 21 H (7-17) mg/dL Creatinine 0.87 (0.52-1.04) mg/dL Glucose 103 H (74-99) mg/dL Calcium 9.6 (8.4-10.2) mg/dL Adrenal panel 01/30/25 Range/Units 22:01 Sodium 139 (137-145) mmol/L Potassium 4.1 (3.5-5.1) mmol/L Chloride 104 (98-107) mmol/L Carbon Dioxide 21 L (22-30) mmol/L BUN 21 H (7-17) mg/dL Creatinine 0.87 (0.52-1.04) mg/dL Glucose 103 H (74-99) mg/dL Calcium 9.6 (8.4-10.2) mg/dL Total Bilirubin 0.4 (0.2-1.3) mg/dL AST 20 (14-36) U/L ALT 14 (4-34) U/L Alkaline Phosphatase 95 (38-126) U/L Total Protein 7.2 (6.3-8.2) g/dL Albumin 4.5 (3.5-5.0) g/dL Assessment and Plan Assessment: 75-year-old female with incidental finding of a right simple cyst. I reviewed the images it is consistent with a simple cyst. Cyst has been present for at le ast 2019 it has grown in size, but continues to be a simple cyst. Her pain is not typical for pain secondary to renal cyst as it is along the entire upper quadrant and not confined to the flank. At this point do not recommend any further intervention for the renal cyst. If patient continues to have abdominal pain and no etiology is found can consider outpatient referral to interventional radiology for IR drainage of the renal cyst. I did discuss with her the cyst is along the anterior of the kidney, and is associated with high risk of bleeding if IR drainage is performed.
[2025-01-31] MEDS: ASPIRIN 81 MG PO SCH (20:17)
[2025-01-31] MEDS: MONTELUKAST 10 MG TAB PO SCH (20:17)
--- NOTE | 2025-01-31 21:54 | CT ---
EXAMINATION TYPE: CT brain wo con CT DLP: 1082.4 mGycm, Automated exposure control for dose reduction was used. DATE OF EXAM: 01/31/2025 9:37 PM COMPARISON: CT brain 10/22/2022 CLINICAL INDICATION:Female, 75 years old with history of facial numbness prior stroke., prior stroke, facial numbness now TECHNIQUE: Brain: Multiple axial CT images of the brain were obtained without IV contrast. . Coronal and sagitta l reformats reviewed. FINDINGS: Brain: Extra-axial spaces: No abnormal extra-axial fluid collections. Ventricular system: Within normal limits Cerebral parenchyma: Age appropriate mild cerebral atrophy. No acute intraparenchymal hemorrhage or m ass effect. The michael-white junction is well differentiated. Scattered hypoattenuating areas are seen within the periventricular white matter. Cerebellum: Unremarkable. Mass effect: No evidence of midline shift. Intracranial vasculature: Atherosclerotic calcifications of the intracranial vessels. Soft tissues: Normal. Calvarium/osseous structures: No depressed skull fracture. Benign hyperostosis frontalis noted. Paranasal sinuses and mastoid air cells: Clear Visualized orbits: Bilateral aphakia IMPRESSION: 1. No acute intracranial process. 2. Nonspecific mild white matter changes, likely secondary to chronic small vessel ischemic disease. [facility], , 01/31/2025 9:51 PM
[2025-02-01] MEDS: LEVOTHYROXINE 88 MCG TAB PO SCH (06:07)
[2025-02-01 07:59] LABS: ALT 10 U/L (4-34); AST 18 U/L (14-36); African American GFR (CKD) 86 (>60 ml/min/1.73 sqM); Albumin 3.9 g/dL (3.5-5.0); Alkaline Phosphatase 84 U/L (38-126); Anion Gap 11 mmol/L; Blood Urea Nitrogen 16 mg/dL (7-17); Calcium 9.4 mg/dL (8.4-10.2); Carbon Dioxide 23 mmol/L (22-30); Chloride 106 mmol/L (98-107); Glucose 96 mg/dL (74-99); Magnesium 1.9 mg/dL (1.6-2.3); Non-African American GFR(CKD) 75 (>60 ml/min/1.73 sqM); Potassium 4.0 mmol/L (3.5-5.1); Sodium 140 mmol/L (137-145); Total Protein 6.2 g/dL (6.3-8.2)
[2025-02-01 08:35] LABS: Basophils # (A) 0.04 10*3/uL (0.00-0.10); Basophils % (A) 0.4 %; Eosinophils # (A) 0.03 10*3/uL (0.04-0.35); Eosinophils % (A) 0.3 %; HCT 35.7 % (37.2-46.3); HGB 11.6 g/dL (12.0-15.0); Lymphocytes # (A) 3.38 10*3/uL (0.90-5.00); Lymphocytes % (A) 30.6 %; MCH 28.8 pg (27.0-32.0); MCHC 32.5 g/dL (32.0-37.0); MCV 88.6 fL (80.0-97.0); Monocytes # (A) 0.69 10*3/uL (0.20-1.00); Monocytes % (A) 6.3 %; Neutrophils # (A) 6.85 10*3/uL (1.80-7.70); Neutrophils % (A) 62.0 %; Platelet Count 294 10*3/uL (140-440); RBC 4.03 10*6/uL (4.10-5.20); RDW 12.9 % (11.5-14.5); WBC 11.03 10*3/uL (4.50-10.00)
--- NOTE | 2025-02-01 11:26 | P.PN ---
Subjective Progress Note Date: 02/01/25 SURGICAL PROGRESS NOTE CHIEF COMPLAINT: Nausea and vomiting HISTORY OF PRESENT ILLNESS: Patient continues to complain of abdominal pain mostly in the right upper quadrant area. She reports having a cough that goes into vomiting. But she continues to have her chronic nausea and episodes of vomiting. Patient seen by urology regarding the right renal cyst. Their recommendations are noted. Afebrile. WBC down from 13-11 LFTs and total bilirubin normal. PHYSICAL EXAM: VITAL SIGNS: Reviewed. GENERAL: Well-developed in no acute distress. ABDOMEN: Soft. Nondistended. Tenderness palpation right upper quadrant NEUROLOGIC: Alert and oriented. Cranial nerves II through XII grossly intact. ASSESSMENT: 1. Abdominal pain with nausea and vomiting 2. Erosive gastritis noted on recent EGD 3. Large right renal simple cyst noted on imaging. Evaluated by urology service. 4. History of cholecystectomy PLAN: - Upper GI ordered due to recurrent nausea and vomiting - Urology recommendations noted and appreciated - Continue PPI - Continue regular diet Physician Upper Inspector note has been reviewed by physician. Signing provider agrees with the documented findings, assessment, and plan of care. Objective - Vital Signs Vital signs: Vital Signs Temp 97.8 F 02/01/25 07:00 Pulse 79 02/01/25 07:00 Resp 17 02/01/25 07:00 BP 177/94 02/01/25 07:00 Pulse Ox 96 02/01/25 07:00 FiO2 Intake & Output 01/31/25 02/01/25 02/01/25 18:59 06:59 18:59 Intake Total 400 200 Balance 400 200 Weight 82.1 kg Intake: Oral 400 200 Other: Voiding Method Toilet Toilet # Voids 2 1 - Labs CBC & Chem 7: 02/01/25 06:24 02/01/25 06:24 Labs: Abnormal Lab Results - Last 24 Hours (Table) 02/01/25 02/01/25 Range/Units 06:24 06:24 WBC 11.03 H (4.50-10.00) 10*3/uL RBC 4.03 L (4.10-5.20) 10*6/uL Hgb 11.6 L (12.0-15.0) g/dL Hct 35.7 L (37.2-46.3) % Eosinophils # 0.03 L (0.04-0.35) 10*3/uL Total Protein 6.2 L (6.3-8.2) g/dL
--- NOTE | 2025-02-01 11:43 | P.CRDCN ---
History of Present Illness History of present illness: HISTORY OF PRESENT ILLNESS: This is a 75 year old female with a past medical history significant for asthma, parkinsons, HTN, obesity, and coronary artery disease. Patient follows in the office with Dr. Membreno. We have been asked to see the patient in consultation for elevated BNP. Patient examined at the bedside. Patient is admitted to the hospital with a UTI. Patient complains of a cough with an itchy throat this morning. She complains of a " barking" cough. She does report sputum production. She denies any chest pain or pressure. She denies lower extremity edema. She denies any known history of CHF. DIAGNOSTICS: - EKG reveals sinus mechanism with no signs of acute ischemia - Chest xray: Negative for acute process - Laboratory data: proBNP 359 - Current home cardiac medications include Plavix 75 mg daily, Repatha 140 mg every 14 days, valsartan 160 mg daily, amlodipine 5 mg daily, metoprolol titrate 50 mg 3 times daily, aspirin 81 mg daily. - Most recent echocardiogram obtained in 09/2024 reveals normal EF, Mild MR, mild TR - Cardiac catheterization history: December 2024 mild disease in the mid LAD, moderate disease in the proximal left circumflex with nonischemic IFR and no significant disease in the left circumflex REVIEW OF SYSTEMS: At the time of my exam: CONSTITUTIONAL: Denies fever or chills. HEENT: Denies blurred vision, vision changes, or eye pain. Denies hemoptysis CARDIOVASCULAR: Denies chest pain. Denies orthopnea. Denies PND. Denies palpitations RESPIRATORY: Denies shortness of breath. GASTROINTESTINAL: Denies abdominal pain. Denies nausea or vomiting. HEMATOLOGIC: Denies bleeding disorders. GENITOURINARY: Denies any blood in urine. SKIN: Denies pruitis. Denies rash. PHYSICAL EXAM: VITAL SIGNS: Reviewed. GENERAL: Well-developed in no acute distress. HEENT: Head is normocephalic. Pupils are equal, round. Sclerae anicteric. Mucous membranes of the mouth are moist. Neck supple. No JVD or thyromegaly LUNGS: Respirations even and unlabored. Lungs essentially clear to auscultation bilaterally. HEART: Regular rate and rhythm. S1 and S2 heard. ABDOMEN: Soft. Nondistended. Nontender. EXTREMITIES: Normal range of motion. No clubbing or cyanosis. Peripheral pulses intact. No lower extremity edema NEUROLOGIC: Awake and alert. Oriented x 3. ASSESSMENT: Urinary tract infection No evidence of CHF History of asthma History of parkinsons Coronary artery disease Obesity; BMI 34.2 PLAN: Patients BNP is 359. Normal for a patient in her age range is <1800. Patients BNP is not elevated and there is no clinical evidence of CHF No further inpatient recommendations from a cardiac standpoint We will sign off. Please reconsult if needed Nurse practitioner note has been reviewed by physician. Signing provider agrees with the documented findings, assessment, and plan of care documented by RECORDING CLERK as a scribe. Past Medical History Past Medical History: Asthma, Renal Disease Additional Past Medical History / Comment(s): Pt recently admitted to [facility] on 03/26/18 with UTI/sepsis, hyponatremia/SIADH, hypomagnesemia, hypokalemia and bacterial MRSA. Other HX: Frequent falls, bilateral weakness from CVAs and loss of equalibrium-also had bilateral facial droops that resolve, pt states she has had 6 CVAs total, TIAs, L leg bone cancer and entire leg has titanium rods, R knee arthroplasty-pt fell and damaged artificial joint, chronic back pain, carpal tunnel syndrome bilateral elbows/shoulders, DJD, diabetes insipidus, LAUREN with no device since weight loss, CKD stage III, SUQUAMISH bilaterally, anemia. parkinsons History of Any Multi-Drug Resistant Organisms: MRSA Date of last positivie culture/infection: 03/26/18 MDRO Source:: BLOOD Past Surgical History: Appendectomy, Back Surgery, Bariatric Surgery, Cholecystectomy, Heart Catheterization, Hysterectomy, Joint Replacement, Orthopedic Surgery, Tubal Ligation Additional Past Surgical History / Comment(s): 04/02/18 PICC line for ABX, Lap band with removal, gastric sleeve, L leg titanium rods, R total knee arthroplasty, bilateral wrist carpal tunnel releases, R great toe surgery to remove a growth, lithotripsy, pain stimulator-nonfunctioning, pain clinic procedures, bilateral cataract removals. Past Anesthesia/Blood Transfusion Reactions: Previous Problems w/ Anesthesia Additional Past Anesthesia/Blood Transfusion Reaction / Comment(s): Slow to wake. Past Psychological History: Anxiety, Depression, Panic Disorder Smoking Status: Never smoker - Past Family History Father Additional Family Medical History / Comment(s): pt was 7 years old when her father was murdered/ from gsw Mother Family Medical History: CVA/TIA Daughter(s) Family Medical History: Deep Vein Thrombosis (DVT) Additional Family Medical History / Comment(s): dvt Medications and Allergies Home Medications Medication Instructions Recorded Confirmed Type Clopidogrel [Plavix] 75 mg PO DAILY 01/04/14 01/31/25 History DULoxetine HCL [Cymbalta] 60 mg PO BID 01/04/14 01/31/25 History Levothyroxine Sodium [Synthroid] 88 mcg PO QAM 01/04/14 01/31/25 History Aspirin 81 mg PO HS 02/07/14 01/31/25 History Carbidopa-Levodopa 25-100 mg 1 tab PO TID 03/26/18 01/31/25 History [Sinemet 25-100 mg] Metoprolol Tartrate [Lopressor] 50 mg PO TID 06/23/18 01/31/25 History EPINEPHrine (Auto Inject) [Epipen] 0.3 mg IM ONCE PRN 11/08/18 01/31/25 History Montelukast [Singulair] 10 mg PO HS 11/08/18 01/31/25 History Valsartan 160 tab PO QAM 08/24/24 01/31/25 History Calcium Carbonate [Calcium] 1,200 mg PO DAILY 01/04/25 01/31/25 History Evolocumab [Repatha Sureclick] 140 mg SQ Q14D 01/04/25 01/31/25 History Fluticasone/Umeclidin/Vilanter 1 puff INHALATION RT-DAILY 01/04/25 01/31/25 History [Trelegy Ellipta 200-62.5-25] Mirabegron [Myrbetriq] 25 mg PO QAM 01/04/25 01/31/25 History Pantoprazole [Protonix] 40 mg PO QAM 01/04/25 01/31/25 History allopurinoL [Zyloprim] 100 mg PO QAM 01/04/25 01/31/25 History cycloSPORINE 0.05% OPHTH SOLN 1 applicator BOTH EYES Q12H 01/04/25 01/31/25 History [Restasis] Albuterol Sulfate [Albuterol 2 puff PO RT-QID PRN 01/31/25 01/31/25 History Sulfate Hfa] Cholecalciferol (Vitamin D3) 125 mcg PO DAILY 01/31/25 01/31/25 History [Vitamin D3 (125 MCG = 5,000 IU)] Levalbuterol Tartrate 2 puff INHALATION RT-QID 01/31/25 01/31/25 History [Levalbuterol Tartrate 45 MCG Hfa] Memantine [Namenda] 10 mg PO BID 01/31/25 01/31/25 History amLODIPine [Norvasc] 5 mg PO DAILY 01/31/25 01/31/25 History Allergies Allergy/AdvReac Type Severity Reaction Status Date / Time aripiprazole [From Abilify] Allergy Anaphylaxis Verified 01/31/25 10:36 baclofen Allergy Anaphylaxis Verified 01/31/25 10:36 butalbital [From Fioricet] Allergy Rash/Hives Verified 01/31/25 10:36 cefadroxil hydrate Allergy Rash/Hives Verified 01/31/25 10:36 [From Duricef] cefazolin sodium Allergy Anaphylaxis Verified 01/31/25 10:36 [From Kefzol] cephalexin monohydrate Allergy Anaphylaxis Verified 01/31/25 10:36 [From Keflex] ciprofloxacin [From Cipro] Allergy Swelling Verified 01/31/25 10:36 OF THROAT ,RASH AND HIVES ciprofloxacin HCl Allergy Rash/Hives, Verified 01/31/25 10:36 [From Cipro] SWELLING OF THROAT clindamycin HCl Allergy Unknown Verified 01/31/25 10:36 [From Cleocin] clindamycin palmitate HCl Allergy Unknown Verified 01/31/25 10:36 [From Cleocin] clindamycin phosphate Allergy Unknown Verified 01/31/25 10:36 [From Cleocin] dexamethasone [From Decadron] Allergy Anaphylaxis Verified 01/31/25 10:36 dexamethasone sod phosphate Allergy Anaphylaxis Verified 01/31/25 10:36 [From Decadron] ,RASH divalproex sodium Allergy Rash/Hives Verified 01/31/25 10:36 [From Depakote] fentanyl [From Duragesic] Allergy Unknown Verified 01/31/25 10:36 hydroxyzine HCl [From Atarax] Allergy Unknown Verified 01/31/25 10:36 ibuprofen [From Motrin] Allergy RASH Verified 01/31/25 10:36 ,ITCHING SWELLING OF THROAT influenza virus vaccine, Allergy Anaphylaxis Verified 01/31/25 10:36 specific [Influenza Virus Vacc,Specific] Iodinated Contrast Media Allergy Anaphylaxis Verified 01/31/25 10:36 [Iodinated Contrast- Oral and IV Dye] lidocaine HCl Allergy Anaphylaxis Verified 01/31/25 10:36 [From Xylocaine] lisinopril Allergy Swelling Verified 01/31/25 10:36 meperidine HCl [From Demerol] Allergy Rash/Hives Verified 01/31/25 10:36 Mushroom Allergy Anaphylaxis Verified 01/31/25 10:36 nortriptyline HCl Allergy Unknown Verified 01/31/25 10:36 [From Pamelor] NSAIDS (Non-Steroidal Allergy Unknown Verified 01/31/25 10:36 Anti-Inflamma omalizumab [From Xolair] Allergy Anaphylaxis Verified 01/31/25 10:36 Penicillins Allergy Rash/Hives Verified 01/31/25 10:36 pregabalin [From Lyrica] Allergy Rash/Hives Verified 01/31/25 10:36 procaine HCl [From Novocain] Allergy Unknown Verified 01/31/25 10:36 shellfish derived Allergy Anaphylaxis Verified 01/31/25 10:36 sulfamethoxazole Allergy Unknown Verified 01/31/25 10:36 [From Septra] tetracycline [Tetracycline] Allergy Rash/Hives Verified 01/31/25 10:36 theophylline anhydrous Allergy Unknown Verified 01/31/25 10:36 [From Joel-Dur] triamcinolone Allergy Anaphylaxis Verified 01/31/25 10:36 trimethoprim [From Septra] Allergy RASH, Verified 01/31/25 10:36 ITCHING vancomycin Allergy ITCHING Verified 01/31/25 10:36 ,HIVES verapamil Allergy Rash/Hives Verified 01/31/25 10:36 wheat Allergy Rash/Hives Verified 01/31/25 10:36 yellow dye Allergy Anaphylaxis Verified 01/31/25 10:36 erythromycin base AdvReac Rash/Hives Verified 01/31/25 10:36 Milk Containing Products AdvReac ABDOMINAL Verified 01/31/25 10:36 (Dairy) PAIN [Milk Containing Products] NAUSEA AND VOMITING morphine AdvReac Vomiting Verified 01/31/25 10:36 nitrofurantoin AdvReac Nausea & Verified 01/31/25 10:36 Vomiting PAPER TAPE Allergy Rash/BLISTE Uncoded 01/31/25 10:36 RS PERSERATIVE IN ALBUTEROL Allergy Dyspnea Uncoded 01/31/25 10:36 INHALER PU WHITE SUTURE Allergy Swelling Uncoded 01/31/25 10:36 Physical Exam Vitals: Vital Signs Temp Pulse Resp BP Pulse Ox 02/01/25 07:00 97.8 F 79 17 177/94 96 02/01/25 02:00 98.0 F 72 130/81 98 01/31/25 20:00 99.1 F 71 116/58 97 Intake and Output 01/31/25 02/01/25 02/01/25 22:59 06:59 14:59 Intake Total 200 200 Balance 200 200 Intake: Oral 200 200 Other: Voiding Method Toilet # Voids 1 1 Results 02/01/25 06:24 02/01/25 06:24 Cardiac Enzymes 02/01/25 Range/Units 06:24 AST 18 (14-36) U/L CBC 02/01/25 Range/Units 06:24 WBC 11.03 H (4.50-10.00) 10*3/uL RBC 4.03 L (4.10-5.20) 10*6/uL Hgb 11.6 L (12.0-15.0) g/dL Hct 35.7 L (37.2-46.3) % Plt Count 294 (140-440) 10*3/uL Comprehensive Metabolic Panel 02/01/25 Range/Units 06:24 Sodium 140 (137-145) mmol/L Potassium 4.0 (3.5-5.1) mmol/L Chloride 106 (98-107) mmol/L Carbon Dioxide 23 (22-30) mmol/L BUN 16 (7-17) mg/dL Creatinine 0.77 (0.52-1.04) mg/dL Glucose 96 (74-99) mg/dL Calcium 9.4 (8.4-10.2) mg/dL AST 18 (14-36) U/L ALT 10 (4-34) U/L Alkaline Phosphatase 84 (38-126) U/L Total Protein 6.2 L (6.3-8.2) g/dL Albumin 3.9 (3.5-5.0) g/dL Current Medications Generic Name Dose Route Start Last Admin Trade Name Freq PRN Reason Stop Dose Admin Acetaminophen 1,000 mg 01/31/25 08:01 01/31/25 23:01 Acetaminophen Tab 500 Mg Tab PO 1,000 mg Q6HR PRN Administration Pain Allopurinol 100 mg 01/31/25 09:00 02/01/25 07:59 Allopurinol 100 Mg Tab PO 100 mg QAM DENICE Administration Amlodipine Besylate 5 mg 01/31/25 09:00 02/01/25 07:59 Amlodipine 5 Mg Tab PO 5 mg QAM DENICE Administration Aspirin 81 mg 01/31/25 21:00 01/31/25 20:17 Aspirin 81 Mg PO 81 mg HS DENICE Administration Budesonide/Formoterol Fumarate 2 puff 01/31/25 09:00 02/01/25 08:11 Symbicort 160-4.5 Mcg Inhaler INHALATION 2 puff RT-BID DENICE Administration Calcium Carbonate/Glycine 1,000 mg 01/31/25 12:00 01/31/25 12:14 Calcium Carbonate 500 Mg Chewable PO 1,000 mg 1200 DENICE Administration Carbidopa/Levodopa 1 each 01/31/25 09:00 02/01/25 07:59 Carbidopa-Levodopa 25-100 Mg 1 Each Tab PO 1 each TID DENICE Administration Cholecalciferol 125 mcg 01/31/25 09:00 02/01/25 07:58 Cholecalciferol 125 Mcg (5000 Iu) Tablet PO 125 mcg DAILY DENICE Administration Clopidogrel Bisulfate 75 mg 01/31/25 09:00 02/01/25 07:59 Clopidogrel 75 Mg Tab PO 75 mg DAILY DENICE Administration Cyclosporine 1 drops 01/31/25 09:00 02/01/25 07:59 Cyclosporine 0.05% Ophth 0.4 Ml Droperette BOTH EYES 1 drops Q12HR DENICE Administration Duloxetine HCl 60 mg 01/31/25 09:00 02/01/25 07:59 Duloxetine Hcl 60 Mg Capsule.Dr PO 60 mg BID DENICE Administration Epinephrine HCl 0.3 mg 01/31/25 08:01 Epinephrine 1 Mg/Ml 1 Ml Vial IM 02/10/25 08:00 ONCE PRN Anaphylaxis Ergocalciferol 1,250 mcg 01/31/25 09:00 01/31/25 09:06 Ergocalciferol 1,250 Mcg (50,000 Iu) Capsule PO 1,250 mcg Q14D DENICE Administration Guaifenesin 600 mg 01/31/25 21:00 02/01/25 07:59 Guaifenesin 600 Mg Tablet.Er PO 600 mg Q12HR DENICE Administration Hydromorphone HCl 1 mg 01/31/25 00:16 Hydromorphone 1 Mg/Ml 1 Ml Syringe IVP Q3HR PRN Severe Pain (Scale 7 to 10) Sodium Chloride 1,000 mls @ 75 mls/hr 01/31/25 00:30 02/01/25 02:58 Saline 0.9% IV 75 mls/hr .[id number] DENICE Administration Levothyroxine Sodium 88 mcg 02/01/25 06:30 02/01/25 06:07 Levothyroxine 88 Mcg Tab PO 88 mcg QAM@0630 DENICE Administration Memantine 5 mg 01/31/25 09:00 02/01/25 08:00 Memantine 5 Mg Tab PO 5 mg BID DENICE Administration Metoprolol Tartrate 50 mg 01/31/25 09:00 02/01/25 07:59 Metoprolol Tartrate 50 Mg Tab PO 50 mg TID DENICE Administration Montelukast Sodium 10 mg 01/31/25 21:00 01/31/25 20:17 Montelukast 10 Mg Tab PO 10 mg HS DENICE Administration Naloxone HCl 0.2 mg 01/31/25 00:16 Naloxone 0.4 Mg/Ml 1 Ml Vial IV Q2M PRN Opioid Reversal Non-Formulary Medication 140 mg 01/31/25 09:00 01/31/25 09:59 Evolocumab [Repatha Sureclick] SQ Not Given Q14D DENICE Non-Formulary Medication 25 mg 01/31/25 09:00 02/01/25 08:00 Mirabegron [Myrbetriq] PO Not Given QAM DENICE Ondansetron HCl 4 mg 01/31/25 00:16 Ondansetron 4 Mg/2 Ml Vial IVP Q8HR PRN Nausea And Vomiting Pantoprazole Sodium 40 mg 01/31/25 09:00 02/01/25 07:59 Pantoprazole 40 Mg Tablet PO 40 mg QAM DENICE Administration Tiotropium Claridge 2 puff 01/31/25 09:00 02/01/25 08:12 Tiotropium 2.5 Mcg Inhaler INHALATION 2 puff RT-DAILY DENICE Administration Valsartan 160 mg 01/31/25 09:00 02/01/25 08:08 Valsartan 160 Mg Tab PO 160 mg QAM DENICE Administration Intake and Output 01/31/25 02/01/25 02/01/25 22:59 06:59 14:59 Intake Total 200 200 Balance 200 200 Intake: Oral 200 200 Other: Voiding Method Toilet # Voids 1 1 02/01/25 06:24 02/01/25 06:24
[2025-02-01] MEDS: predniSONE 20 MG TAB PO SCH (13:04)
--- NOTE | 2025-02-01 14:13 | P.PN ---
Subjective Subjective: Chief Complaint: Abdominal pain, cough, UTI History of present illness; 75-year-old female with significant past medical history of asthma recurrent UTIs, and many allergies presents for complaints of abdominal pain nausea vomiting as well as cough not responding to albuterol. Patient reports that she received antibiotics from an urgent care because she had a UTI and since taking the antibiotics she has developed wheals and symptoms developed into nausea and vomiting and abdominal pain. Patient says that she might have a kidney stone because she has severe abdominal tenderness and distention and pain extending to the flank. She states that she has been feeling cold and clammy. She reports nausea and vomiting but she is still having bowel movements, last was yesterday. Had a colonoscopy and endoscopy in the last month, both were negative per report. Denies hematuria, polyuria, dysuria, hemachezia. In the ER she recieved a CT abdomen and pelvis revealed evidence of 4mm kidney stone and a 9 cm renal cyst on the right side. EKG was also ordered which did not reveal acute pathology. Patient admitted for evaluation of abdominal pain with consults to urology for evaluation of renal cyst 02/01/2025: Patient seen at bedside. No significant overnight events. Still having extreme pain, abdomen is still tense, experiencing episodes of coughing fits with productive sputum and occasional vomiting. Pertinent positives and negatives discussed above, a complete review of systems was preformed and all the other sytems were negative. Vitals Signs Reveiwed. REVIEW OF SYSTEMS: As stated above in HPI. The rest of the 14-point review of systems is negative. General: non toxic, no distress, appears at stated age, normal weight Derm: no unusual rashes/lesions, warm Head: atraumatic, normocephalic, symmetric Eyes: EOMI, no lid lag, anicteric sclera, pupils equal round reactive to light ENT: Nose and ears atraumatic Neck: No cervical lymphadenopathy, trachea midline, supple Mouth: no lip lesion, mucus membranes moist Cardiovascular: S1S2 reg, no murmur, positive dorsalis pedis pulse bilateral, no edema Lungs: Decreased air entry and wheezes bilaterally Abdominal: soft, nontender to palpation, no guarding Ext: muscle strength 5 out of 5 in all 4 extremities grossly, no gross muscle atrophy, no contractures, Neuro: CN II-XI grossly intact, no gross focal neuro deficits Psych: Alert, oriented, appropriate affect Data Reveiwed Today: Assessment and Plan #Right side Renal Cyst: discovered on CT AP 9cm #Kidney Stone (4mm) #Nausea and Vommiting #Leukocytosis secondary to UTI, kidney stone, or reactive #Abdominal Pain secondary to above -CT AP reveals cyst was compressing organs and likely neurovasculature, -Kidney stone seen on CT AP -Consult Urology, appreciate recommendations - Zofran Q6 PRN -Continue NS 75/hr -One time dose of IV meropenem given in the ER, pending UA -One time dose IV morphine, continue multimodal pain management Chronic Conditions: #Asthma -Duonebs -PO Prednisone #Parkinsons Disease -Continue Home Meds #HTN #CAD -Continue home meds #Chronic pain -Multimodal pain management DVT ppx: SCDs GI ppx: Protonix Code Status: Full code Dispo pending pain management Objective - Vital Signs Vital signs: Vital Signs Temp 97.8 F 02/01/25 07:00 Pulse 79 02/01/25 07:00 Resp 17 02/01/25 07:00 BP 177/94 02/01/25 07:00 Pulse Ox 96 02/01/25 07:00 FiO2 Intake & Output 01/31/25 02/01/25 02/01/25 18:59 06:59 18:59 Intake Total 400 200 Balance 400 200 Weight 82.1 kg Intake: Oral 400 200 Other: Voiding Method Toilet Toilet Toilet Diaper # Voids 2 1 - Labs CBC & Chem 7: 02/01/25 06:24 02/01/25 06:24 Labs: Abnormal Lab Results - Last 24 Hours (Table) 02/01/25 02/01/25 Range/Units 06:24 06:24 WBC 11.03 H (4.50-10.00) 10*3/uL RBC 4.03 L (4.10-5.20) 10*6/uL Hgb 11.6 L (12.0-15.0) g/dL Hct 35.7 L (37.2-46.3) % Eosinophils # 0.03 L (0.04-0.35) 10*3/uL Total Protein 6.2 L (6.3-8.2) g/dL
[2025-02-02 03:11] VITALS: RESP 16
[2025-02-02 04:02] LABS: Basophils # (A) 0.05 10*3/uL (0.00-0.10); Basophils % (A) 0.4 %; Eosinophils # (A) 0.04 10*3/uL (0.04-0.35); Eosinophils % (A) 0.3 %; HCT 35.8 % (37.2-46.3); HGB 11.7 g/dL (12.0-15.0); Lymphocytes # (A) 3.52 10*3/uL (0.90-5.00); Lymphocytes % (A) 29.9 %; MCH 28.5 pg (27.0-32.0); MCHC 32.7 g/dL (32.0-37.0); MCV 87.3 fL (80.0-97.0); Monocytes # (A) 0.67 10*3/uL (0.20-1.00); Monocytes % (A) 5.7 %; Neutrophils # (A) 7.44 10*3/uL (1.80-7.70); Neutrophils % (A) 63.3 %; Platelet Count 315 10*3/uL (140-440); RBC 4.10 10*6/uL (4.10-5.20); RDW 12.8 % (11.5-14.5); WBC 11.77 10*3/uL (4.50-10.00)
[2025-02-02 04:19] LABS: ALT 9 U/L (4-34); AST 20 U/L (14-36); African American GFR (CKD) >90 (>60 ml/min/1.73 sqM); Albumin 3.8 g/dL (3.5-5.0); Alkaline Phosphatase 90 U/L (38-126); Anion Gap 10 mmol/L; Blood Urea Nitrogen 19 mg/dL (7-17); Calcium 9.4 mg/dL (8.4-10.2); Carbon Dioxide 27 mmol/L (22-30); Chloride 101 mmol/L (98-107); Glucose 91 mg/dL (74-99); Non-African American GFR(CKD) 82 (>60 ml/min/1.73 sqM); Potassium 4.1 mmol/L (3.5-5.1); Sodium 138 mmol/L (137-145); Total Protein 6.2 g/dL (6.3-8.2)
--- NOTE | 2025-02-02 09:06 | XR ---
EXAMINATION TYPE: XR chest 1V portable DATE OF EXAM: 02/02/2025 8:35 AM COMPARISON: Chest radiographs from 01/30/2025 CLINICAL INDICATION: Female, 75 years old with history of chest pain, short of breath; [facility] TECHNIQUE: XR chest 1V portable Frontal view of the chest. FINDINGS: Lungs/Pleura: There is no evidence of pleural effusion, focal consolidation, or pneumothorax. Pulmonary vascularity: Unremarkable. Heart/mediastinum: Cardiomediastinal silhouette is unremarkable. Musculoskeletal: No acute osseous pathology. Stimulator leads project over the spine. Other findings: None IMPRESSION: No acute cardiopulmonary disease/process. [facility], , 02/02/2025 9:04 AM
--- NOTE | 2025-02-02 13:56 | P.PN ---
Subjective Progress Note Date: 02/02/25 SURGICAL PROGRESS NOTE CHIEF COMPLAINT: Nausea and vomiting HISTORY OF PRESENT ILLNESS: Patient continues to complain of abdominal pain mostly in the right upper quadrant area. She report some shortness of breath last night. They did a chest x-ray which was unremarkable. She continues to complain of chronic nausea and vomiting. She was able to eat all of her regular breakfast. Upper GI completed this morning awaiting results. Afebrile. PHYSICAL EXAM: VITAL SIGNS: Reviewed. GENERAL: Well-developed in no acute distress. ABDOMEN: Soft. Nondistended. Tenderness palpation right upper quadrant NEUROLOGIC: Alert and oriented. Cranial nerves II through XII grossly intact. ASSESSMENT: 1. Abdominal pain with nausea and vomiting 2. Erosive gastritis noted on recent EGD 3. Large right renal simple cyst noted on imaging. Evaluated by urology service. 4. History of cholecystectomy PLAN: - Follow up on UGI results - Continue PPI - Continue regular diet Physician High Wire Artist note has been reviewed by physician. Signing provider agrees with the documented findings, assessment, and plan of care. Objective - Vital Signs Vital signs: Vital Signs Temp 98.0 F 02/02/25 10:16 Pulse 62 02/02/25 10:16 Resp 16 02/02/25 02:00 BP 165/78 02/02/25 10:16 Pulse Ox 98 02/02/25 10:16 FiO2 Intake & Output 02/01/25 02/02/25 02/02/25 18:59 06:59 18:59 Intake Total 1600 Output Total 1 Balance 1600 -1 Intake: Intake, IV Titration 1000 Amount Sodium Chloride 0.9% 1, 1000 000 ml @ 75 mls/hr IV . [id number] [facility] Rx#:[id number] Oral 600 Output: Urine 1 Other: Voiding Method Toilet Diaper # Voids 3 2 # Bowel Movements 1 - Labs CBC & Chem 7: 02/02/25 03:19 02/02/25 03:19 Labs: Abnormal Lab Results - Last 24 Hours (Table) 02/02/25 02/02/25 Range/Units 03:19 03:19 WBC 11.77 H (4.50-10.00) 10*3/uL Hgb 11.7 L (12.0-15.0) g/dL Hct 35.8 L (37.2-46.3) % Immature Gran # 0.05 H (0.00-0.04) 10*3/uL BUN 19 H (7-17) mg/dL Total Protein 6.2 L (6.3-8.2) g/dL
[2025-02-02 14:27] VITALS: BP 122/72; PULSE 75; TEMP 98.1
--- NOTE | 2025-02-02 14:38 | P.DS ---
Providers Date of admission: 01/31/25 00:17 Attending physician: Samuel Dunn Consults: 01/31/25 08:45 Consult Physician Urgent Consulting Provider: James Youssef Consult Reason/Comments: Abdominal Distension Do you want consulting provider notified?: Yes 01/31/25 11:02 Consult Physician Routine Consulting Provider: Osito Rodriguez Consult Reason/Comments: Large right renal cyst Do you want consulting provider notified?: Yes, Notify in am 02/02/25 08:23 Consult Physician Urgent Consulting Provider: Marita Membreno Consult Reason/Comments: new chest pain, short of breath Do you want consulting provider notified?: Yes Primary care physician: Kaur Cabello Hospital Course: Discharge Diagnosis: Right side Renal Cyst: discovered on CT AP 9cm Kidney Stone (4mm) Nausea and Vommiting Leukocytosis secondary to UTI, kidney stone, or reactive Abdominal Pain secondary to above Asthma HTN Chronic Pain Anaphylactic Allergies Hospital Course: History of present illness; 75-year-old female with significant past medical history of asthma recurrent UTIs, and many allergies presents for complaints of abdominal pain nausea vomiting as well as cough not responding to albuterol. Patient reports that she received antibiotics from an urgent care because she had a UTI and since taking the antibiotics she has developed wheals and symptoms developed into nausea and vomiting and abdominal pain. Patient says that she might have a kidney stone because she has severe abdominal tenderness and distention and pain extending to the flank. She states that she has been feeling cold and clammy. She reports nausea and vomiting but she is still having bowel movements, last was yesterday. Had a colonoscopy and endoscopy in the last month, both were negative per report. Denies hematuria, polyuria, dysuria, hemachezia. In the ER she recieved a CT abdomen and pelvis revealed evidence of 4mm kidney stone and a 9 cm renal cyst on the right side. EKG was also ordered which did not reveal acute pathology. Patient admitted for evaluation of abdominal pain with consults to urology for evaluation of renal cyst, after discussion with surgery consults if team decided not to proceed with surgery as renal cyst is unlikely causing symptoms at this time. General surgery ordered swallow study to evaluate of nausea and vommiting which revealed a small hiatal hernia without evidence of obstruction. Discussed evaluation between Urology, general surgery, and medical teams conclude symptoms likely due to kidney stone. Chronic conditions were monitored and managed with home medications. She received 2 doses of prednisone for wheezes secondary to Asthma. At time of discharge, follow-up with PCP scheduled. Pain is controlled with multimodal pain management, she is otherwise hemodynamically stable and being discharged home. Pt seen and examined at bedside: At time of discharge only complaint is cough that has been chronic otherwise pain is tolerable currently with pain regimen Vital signs reveiwed and stable: PHYSICAL EXAMINATION: GENERAL: The patient is alert and oriented x3, in acute distress, diaphoretic. HEENT: Pupils are round and equally reacting to light. EOMI. No scleral icterus. No conjunctival pallor. Normocephalic, atraumatic. CARDIOVASCULAR: S1 and S2 present. No murmurs, rubs, or gallops. PULMONARY: Wheeses bilaterally ABDOMEN: Abdominal distension, diffuse tenderness + CVA tenderness right side. MUSCULOSKELETAL: No joint swelling or deformity. EXTREMITIES: No cyanosis, clubbing, or pedal edema. NEUROLOGICAL: Gross neurological examination did not reveal any focal deficits. SKIN: No rashes. A total of 30 minutes were spent preparing this complex discarge summary. Patient was discharged on 02/02/25. Patient Condition at Discharge: Fair Plan - Discharge Summary Discharge Rx Participant: Yes New Discharge Prescriptions: New HYDROcodone/APAP 10-325MG [[place] 10-325] 1 tab PO Q6HR PRN 3 Days #12 tab PRN Reason: Abdominal Pain Continue Levothyroxine Sodium [Synthroid] 88 mcg PO QAM Clopidogrel [Plavix] 75 mg PO DAILY DULoxetine HCL [Cymbalta] 60 mg PO BID Aspirin 81 mg PO HS Carbidopa-Levodopa 25-100 mg [Sinemet 25-100 mg] 1 tab PO TID Metoprolol Tartrate [Lopressor] 50 mg PO TID Montelukast [Singulair] 10 mg PO HS EPINEPHrine (Auto Inject) [Epipen] 0.3 mg IM ONCE PRN PRN Reason: Anaphylaxis Valsartan 160 tab PO QAM allopurinoL [Zyloprim] 100 mg PO QAM Pantoprazole [Protonix] 40 mg PO QAM Calcium Carbonate [Calcium] 1,200 mg PO DAILY Mirabegron [Myrbetriq] 25 mg PO QAM Evolocumab [Repatha Sureclick] 140 mg SQ Q14D Cholecalciferol (Vitamin D3) [Vitamin D3 (125 MCG = 5,000 IU)] 125 mcg PO DAILY Albuterol Sulfate [Albuterol Sulfate Hfa] 2 puff PO RT-QID PRN PRN Reason: Shortness Of Breath Levalbuterol Tartrate [Levalbuterol Tartrate 45 MCG Hfa] 2 puff INHALATION RT-QID cycloSPORINE 0.05% OPHTH SOLN [Restasis] 1 applicator BOTH EYES Q12H Fluticasone/Umeclidin/Vilanter [Trelegy Ellipta 200-62.5-25] 1 puff INHALATION RT-DAILY Memantine [Namenda] 10 mg PO BID amLODIPine [Norvasc] 5 mg PO DAILY Discharge Medication List Clopidogrel [Plavix] 75 mg PO DAILY 01/04/14 [History] DULoxetine HCL [Cymbalta] 60 mg PO BID 01/04/14 [History] Levothyroxine Sodium [Synthroid] 88 mcg PO QAM 01/04/14 [History] Aspirin 81 mg PO HS 02/07/14 [History] Carbidopa-Levodopa 25-100 mg [Sinemet 25-100 mg] 1 tab PO TID 03/26/18 [History] Metoprolol Tartrate [Lopressor] 50 mg PO TID 06/23/18 [History] EPINEPHrine (Auto Inject) [Epipen] 0.3 mg IM ONCE PRN 11/08/18 [History] Montelukast [Singulair] 10 mg PO HS 11/08/18 [History] Valsartan 160 tab PO QAM 08/24/24 [History] Calcium Carbonate [Calcium] 1,200 mg PO DAILY 01/04/25 [History] Evolocumab [Repatha Sureclick] 140 mg SQ Q14D 01/04/25 [History] Fluticasone/Umeclidin/Vilanter [Trelegy Ellipta 200-62.5-25] 1 puff INHALATION RT-DAILY 01/04/25 [History] Mirabegron [Myrbetriq] 25 mg PO QAM 01/04/25 [History] Pantoprazole [Protonix] 40 mg PO QAM 01/04/25 [History] allopurinoL [Zyloprim] 100 mg PO QAM 01/04/25 [History] cycloSPORINE 0.05% OPHTH SOLN [Restasis] 1 applicator BOTH EYES Q12H 01/04/25 [History] Albuterol Sulfate [Albuterol Sulfate Hfa] 2 puff PO RT-QID PRN 01/31/25 [ History] Cholecalciferol (Vitamin D3) [Vitamin D3 (125 MCG = 5,000 IU)] 125 mcg PO DAILY 01/31/25 [History] Levalbuterol Tartrate [Levalbuterol Tartrate 45 MCG Hfa] 2 puff INHALATION RT- QID 01/31/25 [History] Memantine [Namenda] 10 mg PO BID 01/31/25 [History] amLODIPine [Norvasc] 5 mg PO DAILY 01/31/25 [History] HYDROcodone/APAP 10-325MG [[place] 10-325] 1 tab PO Q6HR PRN 3 Days #12 tab 02/02/25 [Rx] Follow up Appointment(s)/Referral(s): Kaur Cabello MD [Primary Care Provider] - 1-2 days Patient Instructions/Handouts: Kidney Stones (DC), Kidney Cyst (GEN) Discharge Disposition: HOME SELF-CARE
--- NOTE | 2025-02-02 14:47 | FL ---
EXAMINATION TYPE: FL UGI w esophagus DATE OF EXAM: 02/02/2025 COMPARISON: None CLINICAL INDICATION: Female, 75 years old with history of nausea, vomiting; [facility], TECHNIQUE: A single contrast UGI study is performed. A total of 69 seconds of fluoroscopic time was utilized during procedure and 25 images obtained. Total dose area product (DAP) in uGy*m?, mGy*cm? ( or similar): 757.99. FINDINGS: [employer] image of the abdomen generalized osteopenia with degenerative changes spine and arth ropathy of the hips. Stimulator device and surgical clips noted. Vascular calcification. Nonspecific gas pattern. Patient could only tolerate a couple swallows of barium. There is no evidence of esophageal obstructi on. Tertiary contractions of esophagus. There is a small hiatal hernia. Limited assessment of stomach demonstrates no obvious filling defect or obstruction. Contrast is seen to pass into the duodenal bulb and sweep. IMPRESSION: 1. Limited exam as discussed above. 2. Tertiary contraction the esophagus with small hiatal hernia. 3. No evidence of obstruction. [facility], , 02/02/2025 2:45 PM
== END 2025-02-02 17:30 | disposition home or self-care (01) ==
LOC: EC 18:37 → 6NMEDSUR 01-31 00:17 → 1SOBS 01-31 05:49
PROVIDERS: ADMIT Hospitalist; ATTEND Hospitalist
DX: N28.1 Cyst of kidney, acquired (principal); N20.0 Calculus of kidney; N39.0 Urinary tract infection, site not specified; R07.89 Other chest pain; K29.60 Other gastritis without bleeding; K44.9 Diaphragmatic hernia without obstruction or gangrene; K22.89 Other specified disease of esophagus; E23.2 Diabetes insipidus; G47.33 Obstructive sleep apnea (adult) (pediatric); I12.9 Hypertensive chronic kidney disease with stage 1 through stage 4 chronic kidney disease, or unspecified chronic kidney disease; N18.30 Chronic kidney disease, stage 3 unspecified; F32.A Depression, unspecified; F41.0 Panic disorder [episodic paroxysmal anxiety]; I25.10 Atherosclerotic heart disease of native coronary artery without angina pectoris; G20.A1 Parkinson's disease without dyskinesia, without mention of fluctuations; J45.909 Unspecified asthma, uncomplicated; G89.29 Other chronic pain; E66.9 Obesity, unspecified; Z68.34 Body mass index [BMI] 34.0-34.9, adult; Z85.830 Personal history of malignant neoplasm of bone; Z86.73 Personal history of transient ischemic attack (TIA), and cerebral infarction without residual deficits; Z87.440 Personal history of urinary (tract) infections; Z90.49 Acquired absence of other specified parts of digestive tract; Z79.02 Long term (current) use of antithrombotics/antiplatelets; Z79.51 Long term (current) use of inhaled steroids; Z79.82 Long term (current) use of aspirin; Z79.890 Hormone replacement therapy; Z79.899 Other long term (current) drug therapy; Z88.1 Allergy status to other antibiotic agents; Z88.2 Allergy status to sulfonamides; Z88.6 Allergy status to analgesic agent; Z88.5 Allergy status to narcotic agent
CPT/HCPCS: 96361 ×5; 96374; 96375; 99285; 36415; 94640 ×5; 93005; 85379; 83880 ×2; 80053 ×3; 82150; 83690; 83735 ×2; 84100; 84484 ×3; 85025 ×3; 85610; 85730; 81003; 74240; 71045; 71046; 70450; 71275; 74177; G0378 ×4; J1200; J2405; J2185; J1171; J7512 ×2; Q9967; J2919; J1308

== ENCOUNTER → 2025-01-30 | Outpatient (CLI) | payer MEDICARE, OTHER ==
[2025-01-30 10:46] LABS: Cholesterol 179.00 mg/dL (0.00-200.00); HDL Cholesterol 70.70 mg/dL (40.00-60.00); LDL Cholesterol,Calculated 69.9 mg/dL (0.0-131.0); Triglycerides 192.00 mg/dL (0.00-149.00); VLDL Calculation 38.40 mg/dL (5.00-40.00)
[2025-01-30 11:12] LABS: ALT 5 U/L (8-44); AST 7 U/L (13-35); Albumin 4.2 g/dL (3.8-4.9); Albumin/Globulin Ratio 1.31 Ratio (1.60-3.17); Alkaline Phosphatase 98 U/L (41-126); Anion Gap 5.40 mmol/L (4.00-12.00); BUN/Creat Ratio 22.88 Ratio (12.00-20.00); Blood Urea Nitrogen 18.3 mg/dL (9.0-27.0); Calcium 9.1 mg/dL (8.7-10.3); Carbon Dioxide 30.6 mmol/L (21.6-31.8); Chloride 103 mmol/L (96-109); Globulin 3.2 g/dL (1.6-3.3); Glucose 131 mg/dL (70-110); Potassium 6.3 mmol/L (3.5-5.5); Sodium 139 mmol/L (135-145); Total Protein 7.4 g/dL (6.2-8.2)
== END | disposition home or self-care (01) ==
LOC: LABWHC1 07:36
PROVIDERS: ATTEND Nurse Practitioner Adult Health
DX: I10 Essential (primary) hypertension (principal); E78.2 Mixed hyperlipidemia
CPT/HCPCS: 36415; 80053; 80061